=== PATIENT | female | born 1955 | race Caucasian/White ===

== ENCOUNTER 2017-03-08 15:01 | Emergency (ER) | payer MEDICARE, OTHER ==
[2017-03-08] MEDS ORDERED: MORPHINE SULFATE 10 MG/ML SYRINGE IM STA (16:33)
--- NOTE | 2017-03-08 16:37 | ED ---
General Adult HPI - General Chief complaint: Fall Stated complaint: fall 4 days ago facial bruising Time Seen by Provider: 03/08/17 16:26 Source: patient, RN notes reviewed Mode of arrival: ambulatory Limitations: physical limitation - History of Present Illness Initial comments: 62-year-old female with history of memory issues and seizures presenting after fall 4 days ago. Patient states that she believes it was mechanical fall at the time but states that her memory is not very good. She states that she does remember falling. She does not believe that she lost consciousness during this. She did hit the left side of her face on the ground as well as her right hand. She states she initially had swelling in her right hand and right wrist but this is improved. However she is still having pain in this area. She is also having some left rib pain. She denies any abdominal pain. She denies any chest pain or shortness of breath. - Related Data Home Medications Medication Instructions Recorded Confirmed Cranberry Conc/C/Bacill Coag 1 tab PO DAILY PRN 02/27/14 03/08/17 [Cranberry Tablet] DULoxetine HCL [Cymbalta] 60 mg PO HS 02/27/14 03/08/17 Omeprazole 40 mg PO QAM 02/27/14 03/08/17 Rosuvastatin [Crestor] 10 mg PO HS 02/27/14 03/08/17 levETIRAcetam [Keppra] 500 mg PO BID 02/27/14 03/08/17 Losartan Potassium [Cozaar] 50 mg PO QAM 02/04/15 03/08/17 Ergocalciferol [Vitamin D2] 50,000 unit PO Q7D 06/10/15 03/08/17 cloNIDine HCL [Catapres] 0.1 mg PO DAILY 05/19/16 03/08/17 ALPRAZolam [Xanax] 0.25 mg PO Q12HR 06/22/16 03/08/17 Morphine Sulfate ER [Ms Contin] 30 mg PO BID 03/08/17 03/08/17 oxyCODONE-APAP 7.5-325MG [Percocet 1 tab PO TID PRN 03/08/17 03/08/17 7.5-325 mg] Allergies Allergy/AdvReac Type Severity Reaction Status Date / Time nitrofurantoin AdvReac Nausea & Verified 03/08/17 16:43 [From Macrobid] Vomiting,ABDOMINAL PAIN NSAIDS (Non-Steroidal AdvReac Nausea & Verified 03/08/17 16:43 Anti-Inflamma Vomiting Review of Systems ROS Statement: Those systems with pertinent positive or pertinent negative responses have been documented in the HPI. ROS Other: All systems not noted in ROS Statement are negative. Past Medical History Past Medical History: Asthma, Fibromyalgia, Hyperlipidemia, Hypertension, Memory Impairment, Osteoarthritis (OA), Seizure Disorder Additional Past Medical History / Comment(s): BACK PAIN, SHORT TERM MEMORY LOSS, History of Any Multi-Drug Resistant Organisms: None Reported Past Surgical History: Adenoidectomy, Back Surgery, Breast Surgery, Joint Replacement, Orthopedic Surgery, Tonsillectomy Additional Past Surgical History / Comment(s): , LT HAND SURGERY, RT GANGLION CYST REMOVED, LEEP, COLONOSCOPY, EGD, MIGUEL A. CATARACT WITH LENS IMLANTS,RT BREAST BIOPSY, 2 BACK SURGERIES- ONE WAS A LAMINECTOMY, TOTAL LEFT KNEE Past Anesthesia/Blood Transfusion Reactions: No Reported Reaction Past Psychological History: No Psychological Hx Reported Additional Psychological History / Comment(s): SHORT TERM MEMORY LOSS Smoking Status: Light tobacco smoker Past Alcohol Use History: None Reported Additional Past Alcohol Use History / Comment(s): SMOKE PIPES DAILY STARTED SMOKING AT AGE 20 Past Drug Use History: None Reported - Past Family History Brother(s) Family Medical History: Cancer Additional Family Medical History / Comment(s): PANCREATITIS Mother Family Medical History: Hypertension, Memory Impairment Additional Family Medical History / Comment(s): ALZHEIMER'S Father Family Medical History: Coronary Artery Disease (CAD) Additional Family Medical History / Comment(s): HEART PROBLEMS-HAD QUAD- CABG, ALCOHOLISM General Exam - General Exam Comments Initial Comments: General: Awake and Alert. No acute distress. Does not appear acutely ill. Obese. Eyes: DAKOTAH, EOM intact. No nystagmus. No scleral icterus. HENT: Normocephalic. Mucous membranes moist. Trachea midline. There is left periorbital ecchymosis and bruising to the left cheek. No hemotympanum. No mastoid tenderness. No epistaxis or septal hematoma. Neck: The neck is supple, there is no JVD. No posterior neck tenderness. Cardiovascular: Regular rate and rhythm. No murmur, rub, or gallop is appreciated. Distal pulses intact. Respiratory: Lungs are clear to auscultation bilaterally. Diffuse wheezes. No rales, rhonchi. No respiratory distress. Gastrointestinal: Soft, Nontender. No rebound or guarding. Non-distended. No masses or organomegaly noted. No CVA tenderness. Musculoskeletal: Left lateral rib tenderness. Posterior spinal tenderness. No gross deformity. No strength deficits. Neurological: A&Ox3. CN II-XII grossly intact, There are no obvious motor or sensory deficits. Coordination appears grossly intact. Speech is normal. Skin: Skin is warm and dry and no rashes or lesions are noted. Psychiatric: Cooperative, appropriate mood & affect, normal judgment. Limitations: physical limitation Course Vital Signs 03/08/17 03/08/17 03/08/17 15:42 16:46 17:21 Temperature 97.4 F L 97.1 F L Pulse Rate 54 L 76 68 Respiratory 18 16 Rate Blood Pressure 132/72 154/95 O2 Sat by Pulse 96 95 Oximetry 03/08/17 03/08/17 03/08/17 17:32 18:00 18:34 Temperature 97.1 F L 97.2 F L Pulse Rate 70 76 72 Respiratory 16 16 Rate Blood Pressure 154/95 152/90 O2 Sat by Pulse 95 98 Oximetry Medical Decision Making - Medical Decision Making 62-year-old female presenting after fall 4 days ago. Pt has left facial pain with evidence of ecchymosis on exam. EOM intact without pain or entrapment. She also has right wrist and hand pain. She also has left rib pain. Patient does not believe that she lost consciousness at this time. No blood thinner use. Neurologically she appears intact. She does state that she has memory issues and does not recall the fall very well. However she is AO 3 on examination. Pain medication and imaging was ordered. Patient also with noted wheezing on exam, DuoNeb treatment ordered. Patient states she has history of asthma. She does have an inhaler at home. CT head no acute bleed CT orbits no acute fracture Left rib XR no acute fracture Right wrist XR no acute fracture Patient reevaluated, remained stable. States she is feeling improved after pain medications. Updated on imaging results. Discussed no evidence of fractures or acute process and stable for discharge home at this time. Patient is taking MS Contin and oxycodone for chronic pain at home. Discussed she can continue to use her normal pain medications. Discussed fall risk associated with these medications. Discussed icing affected areas as needed. Discussed close follow-up with pain physician and PCP. Patient does ambulate with a walker at baseline and had stable gait in the ED with this. Discussed using his at all times. Patient stable for discharge home. Discussed concerning signs and symptoms for immediate return to the ED. Patient and friend are agreeable with plan discharge home. - Radiology Data Radiology results: report reviewed, image reviewed Disposition Clinical Impression: Facial contusion, Right hand pain, Contusion of rib on left side, Fall Disposition: HOME SELF-CARE Condition: Stable Instructions: Wrist Injury (ED), Rib Contusion (ED), Facial Contusion (ED), Fall Prevention (ED) Additional Instructions: Please continue taking your normal medications for pain. You may ice the affected areas as needed. Please always use your walker. Referrals: Jaylan Garcia MD [Primary Care Provider] - 1-2 days Time of Disposition: 18:14
[2017-03-08 16:47] VITALS: RESP 16
[2017-03-08] MEDS ORDERED: IPRATROPIUM-ALBUTEROL 3 ML NEB INHALATION STA (16:47)
--- NOTE | 2017-03-08 17:23 | CT ---
EXAMINATION TYPE: CT brain wo con DATE OF EXAM: 03/08/2017 5:11 PM COMPARISON: MR brain dated 04/19/[address] brain dated 10/24/2012 HISTORY: Fall 4 days ago, left frontal injury. CT DLP: 1405.00 mGycm. Automated Exposure Control for Dose Reduction was Utilized. TECHNIQUE: CT scan of the head is performed without contrast. FINDINGS: Wedge-shaped areas of hypoattenuation relate to encephalomalacia within the posterior cereb ral distributions bilaterally, right greater than left as seen on the prior MR dated 04/19/2015. Confl uent patchy areas of hypoattenuation are seen within the centrum semiovale, also unchanged from the p rior MR and CT dated 10/24/2012. There is no acute intracranial hemorrhage, mass effect, or midline s hift identified. There is mild ex vacuo dilatation of the posterior horns of the lateral ventricles. Old lacunar injury is also seen in the caudate head on the right.. The globes are intact and the vis ualized sinuses are clear. Left frontoparietal scalp hematoma measuring 6 mm is present. IMPRESSION: 1. No acute intracranial hemorrhage, mass effect, or midline shift is seen. 2. 6 mm left frontoparietal scalp hematoma. 3. Unchanged bilateral encephalomalacia in the distribution of the posterior cerebral arteries, right greater than left as well white matter change likely relating to chronic small vessel ischemia and o ld right caudate lacunar injury.
--- NOTE | 2017-03-08 17:34 | XR ---
EXAMINATION TYPE: XR ribs LT w pa chest xray DATE OF EXAM: 03/08/2017 5:27 PM COMPARISON: 08/15/2014 HISTORY: Left lateral rib pain after fall 4 days ago TECHNIQUE: Single frontal radiograph and 2 views of the left ribs were obtained. FINDINGS: There is no displaced evidence of fracture or dislocation. Thoracic vertebral body heights appear maintained. There is partial visualization of fusion with in the upper lumbar spine. The lungs are clear with no focal consolidation, pleural effusion, or pneumothorax. IMPRESSION: No acute cardiopulmonary process. No displaced fracture.
--- NOTE | 2017-03-08 17:36 | XR ---
EXAMINATION TYPE: XR wrist complete RT DATE OF EXAM: 03/08/2017 5:27 PM COMPARISON: Radiograph of the left wrist dated 10/24/2012. HISTORY: Generalized right wrist pain after fall. TECHNIQUE: 3 views of the right wrist were obtained as well as a scaphoid view. FINDINGS: There is no evidence of fracture or dislocation. There is generalized osteopenia. No soft t issue swelling is appreciated. Carpal rows appear maintained. No radiopaque foreign body. IMPRESSION: No evidence of fracture or dislocation.
--- NOTE | 2017-03-08 17:40 | CT ---
EXAMINATION TYPE: CT orbits wo con DATE OF EXAM: 03/08/2017 5:18 PM COMPARISON: NONE HISTORY: Fall 4 days ago, left frontal injury. CT DLP: 1405.00 mGycm Automated exposure control for dose reduction was used. FINDINGS: There is left frontal zygomatic soft tissue swelling and a small 7 mm subcutaneous density likely rep resenting a small soft tissue hematoma. Soft tissue swelling extends from the superior level of the o rbit over the left temporal region to the zygomatic arch. The orbits are intact and lenses are in tom ce. No evidence of disconjugate gaze, extraocular muscle asymmetry or injury, or lens displacement. T here is no preseptal or postseptal soft tissue swelling. No calvarial fracture is seen. No fracture or dislocation. Nasal septum is deviated towards the left but intact. Right middle nasal turbinate jackson bullosa is incidentally noted. Mild mucosal thickenin g is seen within the ethmoid sinuses. Mastoid air cells and remaining paranasal sinuses are well aera edgardo. Mandibular condyles are located within the mandibular fossa. Nara danilo and lamina Propecia ar e intact. Minimal intracranial vascular calcifications are noted. IMPRESSION: 1. SOFT TISSUE SWELLING AND SMALL PROBABLE 7 MM SUBCUTANEOUS HEMATOMA OVER THE LEFT TEMPORAL REGION E XTENDING TO THE ZYGOMATIC ARCH WITHOUT FRACTURE OR DISLOCATION. 2. MILD ETHMOIDAL MUCOSAL THICKENING.
[2017-03-08 18:35] VITALS: BP 152/90; PULSE 72; TEMP 97.2
== END 2017-03-08 18:34 | disposition home or self-care (01) ==
LOC: EC 15:01
DX: S05.12XA Contusion of eyeball and orbital tissues, left eye, initial encounter (principal); S00.83XA Contusion of other part of head, initial encounter; S20.212A Contusion of left front wall of thorax, initial encounter; M79.641 Pain in right hand; M25.531 Pain in right wrist; J45.909 Unspecified asthma, uncomplicated; E78.5 Hyperlipidemia, unspecified; I10 Essential (primary) hypertension; M19.90 Unspecified osteoarthritis, unspecified site; G40.909 Epilepsy, unspecified, not intractable, without status epilepticus; F17.200 Nicotine dependence, unspecified, uncomplicated; Z79.891 Long term (current) use of opiate analgesic; Z79.899 Other long term (current) drug therapy; Z88.6 Allergy status to analgesic agent; Z88.8 Allergy status to other drugs, medicaments and biological substances; W18.30XA Fall on same level, unspecified, initial encounter
CPT/HCPCS: 94640; 71101; 73110; 70450; 70480; 99284; 96372; J2270

== ENCOUNTER 2017-05-22 00:27 | Inpatient (IN) | payer MEDICARE, OTHER ==
[2017-05-22] MEDS ORDERED: HYDROmorphone 1 MG/ML 1 ML SYRINGE IVP STA ×4 (00:54→04:02)
--- NOTE | 2017-05-22 01:02 | ED ---
Fall HPI <Prince Nunes J - Last Filed: 05/22/17 02:28> - General Source: patient, EMS, RN notes reviewed Mode of arrival: EMS <Charito Guillen - Last Filed: 05/22/17 04:12> - General Chief Complaint: Fall Stated Complaint: Hip Pain/Fall Time Seen by Provider: 05/22/17 00:45 - History of Present Illness Initial Comments: Patient is a 62-year-old female presents to the emergency room for evaluation of fall injury. Patient states that she fell from standing position landing on her right hip/back. Patient states is having 10 out of 10 pain in her lower back and in her hip/upper leg. Patient states she can't move her right leg secondary to pain. Patient denies numbness or tingling going down her leg. Patient denies fecal or urinary incontinence. Patient denies saddle anesthesia. Patient does state she has a history of chronic low back pain. Patient states she's had 2 surgeries over her lumbar spine. Patient states that she takes pain medications at home regularly. Patient denies any other injuries during incident. Patient denies head trauma. Patient denies taking blood thinners. (Charito Guillen) - Related Data Home Medications Medication Instructions Recorded Confirmed Cranberry Conc/C/Bacill Coag 1 tab PO DAILY PRN 02/27/14 05/22/17 [Cranberry Tablet] DULoxetine HCL [Cymbalta] 60 mg PO HS 02/27/14 05/22/17 Omeprazole 40 mg PO QAM 02/27/14 05/22/17 Rosuvastatin [Crestor] 10 mg PO HS 02/27/14 05/22/17 levETIRAcetam [Keppra] 500 mg PO BID 02/27/14 05/22/17 Losartan Potassium [Cozaar] 50 mg PO QAM 02/04/15 05/22/17 Ergocalciferol [Vitamin D2] 50,000 unit PO Q7D 06/10/15 05/22/17 cloNIDine HCL [Catapres] 0.1 mg PO DAILY 05/19/16 05/22/17 ALPRAZolam [Xanax] 0.25 mg PO Q12HR 06/22/16 05/22/17 Morphine Sulfate ER [Ms Contin] 30 mg PO BID 03/08/17 05/22/17 oxyCODONE-APAP 7.5-325MG [Percocet 1 tab PO TID PRN 03/08/17 05/22/17 7.5-325 mg] Allergies Allergy/AdvReac Type Severity Reaction Status Date / Time nitrofurantoin AdvReac Nausea & Verified 05/22/17 02:13 [From Macrobid] Vomiting,ABDOMINAL PAIN NSAIDS (Non-Steroidal AdvReac Nausea & Verified 05/22/17 02:13 Anti-Inflamma Vomiting Review of Systems ROS Other: All systems not noted in ROS Statement are negative. <Prince Nunes - Last Filed: 05/22/17 02:28> ROS Other: All systems not noted in ROS Statement are negative. <Charito Guillen - Last Filed: 05/22/17 04:12> ROS Statement: Those systems with pertinent positive or pertinent negative responses have been documented in the HPI. Past Medical History Past Medical History: Asthma, Fibromyalgia, Hyperlipidemia, Hypertension, Memory Impairment, Osteoarthritis (OA), Seizure Disorder Additional Past Medical History / Comment(s): BACK PAIN, SHORT TERM MEMORY LOSS, History of Any Multi-Drug Resistant Organisms: None Reported Past Surgical History: Adenoidectomy, Back Surgery, Breast Surgery, Joint Replacement, Orthopedic Surgery, Tonsillectomy Additional Past Surgical History / Comment(s): , LT HAND SURGERY, RT GANGLION CYST REMOVED, LEEP, COLONOSCOPY, EGD, MIGUEL A. CATARACT WITH LENS IMLANTS,RT BREAST BIOPSY, 2 BACK SURGERIES- ONE WAS A LAMINECTOMY, TOTAL LEFT KNEE Past Anesthesia/Blood Transfusion Reactions: No Reported Reaction Past Psychological History: No Psychological Hx Reported Smoking Status: Light tobacco smoker Past Alcohol Use History: None Reported Past Drug Use History: None Reported - Past Family History Brother(s) Family Medical History: Cancer Additional Family Medical History / Comment(s): PANCREATITIS Mother Family Medical History: Hypertension, Memory Impairment Additional Family Medical History / Comment(s): ALZHEIMER'S Father Family Medical History: Coronary Artery Disease (CAD) Additional Family Medical History / Comment(s): HEART PROBLEMS-HAD QUAD- CABG, ALCOHOLISM <Charito Guillen - Last Filed: 05/22/17 04:12> General Exam <Prince Nunes - Last Filed: 05/22/17 02:28> Limitations: physical limitation General appearance: alert Head exam: Present: atraumatic, normocephalic, normal inspection Eye exam: Present: normal appearance ENT exam: Present: normal exam Neck exam: Present: normal inspection Respiratory exam: Present: normal lung sounds bilaterally. Absent: respiratory distress Cardiovascular Exam: Present: regular rate, normal rhythm, normal heart sounds Right Hip exam: Present: tenderness, internal rotation, shortening. Absent: full ROM Upper Leg exam: Present: tenderness (proximal femur) Knee exam: Present: normal inspection. Absent: tenderness Lower Leg exam: Present: normal inspection. Absent: tenderness Ankle exam: Present: normal inspection. Absent: tenderness Foot/Toe exam: Present: normal inspection. Absent: tenderness Neurovascular tendon exam: Present: no vascular compromise. Absent: pulse deficit (2+ dorsal pedal and posterior tibial pulses), abnormal cap refill ( capillary refill less than 2 seconds) Back exam: Present: normal inspection, vertebral tenderness (lumbosacral spine) Neurological exam: Present: alert Psychiatric exam: Present: agitated Skin exam: Present: warm, dry, intact, normal color. Absent: rash <Charito Guillen - Last Filed: 05/22/17 04:12> - General Exam Comments Initial Comments: laying in exam room, moaning. (Charito Guillen) Medical Decision Making <Prince Nunes - Last Filed: 05/22/17 02:28> - Lab Data Result diagrams: 05/22/17 02:20 05/22/17 02:20 - Radiology Data Radiology results: report reviewed, image reviewed <Charito Guillen - Last Filed: 05/22/17 04:12> - Medical Decision Making The patient was seen and examined. All diagnostics were reviewed. It appears that she did break her hip. The case is discussed with Dr. Garcia and he is agreeable with admission with Dr. Oliveira to consult. I have discussed the case with the PA and agree with findings as documented. (Prince Nunes) patient is a 62-year-old female presents to the emergency room for evaluation of right leg pain. X-ray significant for right subcapital femoral neck fracture. Patient will be admitted and consult with transfer specialist. ( Charito Guillen) - Lab Data Lab Results 05/22/17 05/22/17 05/22/17 Range/Units 02:20 02:20 02:20 WBC 12.5 H (3.8-10.6) k/uL RBC 3.85 (3.80-5.40) m/uL Hgb 12.2 (11.4-16.0) gm/dL Hct 36.9 (34.0-46.0) % MCV 95.8 (80.0-100.0) fL MCH 31.7 (25.0-35.0) pg MCHC 33.1 (31.0-37.0) g/dL RDW 13.1 (11.5-15.5) % Plt Count 207 (150-450) k/uL Neutrophils % 79 % Lymphocytes % 15 % Monocytes % 4 % Eosinophils % 1 % Basophils % 0 % Neutrophils # 9.9 H (1.3-7.7) k/uL Lymphocytes # 1.9 (1.0-4.8) k/uL Monocytes # 0.5 (0-1.0) k/uL Eosinophils # 0.1 (0-0.7) k/uL Basophils # 0.0 (0-0.2) k/uL PT 10.4 (9.0-12.0) sec INR 1.0 (<1.2) APTT 26.2 (22.0-30.0) sec Sodium 134 L (137-145) mmol/L Potassium 3.6 (3.5-5.1) mmol/L Chloride 100 (98-107) mmol/L Carbon Dioxide 23 (22-30) mmol/L Anion Gap 11 mmol/L BUN 14 (7-17) mg/dL Creatinine 0.70 (0.52-1.04) mg/dL Est GFR (MDRD) Af Amer >60 (>60 ml/min/1.73 sqM) Est GFR (MDRD) Non-Af >60 (>60 ml/min/1.73 sqM) Glucose 115 H (74-99) mg/dL Calcium 8.5 (8.4-10.2) mg/dL Total Bilirubin 0.2 (0.2-1.3) mg/dL AST 22 (14-36) U/L ALT 38 (9-52) U/L Alkaline Phosphatase 74 (38-126) U/L Total Protein 6.0 L (6.3-8.2) g/dL Albumin 3.9 (3.5-5.0) g/dL 05/22/17 02:34 Normal sinus rhythm, ventricular rate 71 bpm, MI interval 138 ms, QRS anabaptism 90 ms, QT/QTc 448/486 seconds (Charito Guillen) Disposition <Prince Nunes - Last Filed: 05/22/17 02:28> Decision Date: 05/22/17 <Charito Guillen - Last Filed: 05/22/17 04:12> Clinical Impression: Fall, Subcapital fracture of neck of femur Disposition: ADMITTED IP TO THIS HOSP Condition: Stable
--- NOTE | 2017-05-22 02:04 | XR ---
EXAM: XR Chest, 1 View CLINICAL HISTORY: Preop hip fracture. TECHNIQUE: Frontal view of the chest. COMPARISON: Chest radiograph dated 03/08/17. FINDINGS: Lungs: No airspace consolidation. Pleural space: No significant pleural effusion. No pneumothorax. Heart: Normal cardiac silhouette allowing for AP technique. Bones/joints: Degenerative changes at the acromioclavicular joints IMPRESSION: No acute findings.
--- NOTE | 2017-05-22 02:23 | XR ---
EXAM: XR Right Femur, 2 Views CLINICAL HISTORY: Right femur pain status post fall. TECHNIQUE: Frontal and crosstable lateral views of the right femur. Total images: 4. COMPARISON: No relevant prior studies available. FINDINGS: Bones/joints: Acute right subcapital femoral neck fracture. Soft tissues: Unremarkable. IMPRESSION: Acute right subcapital femoral neck fracture.
--- NOTE | 2017-05-22 02:25 | XR ---
EXAM: XR Pelvis, 1 or 2 Views CLINICAL HISTORY: Pain status post fall. TECHNIQUE: Frontal view of the pelvis. COMPARISON: No relevant prior studies available. FINDINGS: Bones/joints: Acute right subcapital femoral neck fracture. Lower lumbar spine fixation hardware. Decreased osseous mineralization. Soft tissues: Unremarkable. IMPRESSION: Acute right subcapital femoral neck fracture.
--- NOTE | 2017-05-22 02:28 | XR ---
EXAM: XR Lumbar Spine, 2 or 3 Views CLINICAL HISTORY: Pain status post fall. TECHNIQUE: Frontal and lateral views of the lumbar spine. Total images: 3. COMPARISON: No relevant prior studies available. FINDINGS: Limitations: Suboptimal exam due to decreased osseous mineralization. The crosstable lateral views are limited diagnostic value. Vertebrae: The vertebral bodies are grossly maintained. No significant malalignment. Posterior approach fixation hardware and disc spacer device noted at L5-S1. Soft tissues: Unremarkable. IMPRESSION: No definite acute abnormality allowing for limitations of technique.
[2017-05-22] MEDS ORDERED: ONDANSETRON 4 MG/2 ML VIAL IVP PRN (02:30)
[2017-05-22] MEDS ORDERED: HYDROmorphone 1 MG/ML 1 ML SYRINGE IV PRN (02:30)
[2017-05-22] MEDS ORDERED: NALOXONE 0.4 MG/ML 1 ML VIAL IV PRN ×2 (02:30→14:12)
[2017-05-22 02:45] LABS: Basophils % (A) 0 %; CH 32.1; CHCM 33.6; Eosinophils # (A) 0.1 k/uL (0-0.7); Eosinophils % (A) 1 %; HCT 36.9 % (34.0-46.0); HDW 2.22; HGB 12.2 gm/dL (11.4-16.0); Luc # (Auto) 0.11; Luc % (Auto) 1; Lymphocytes # (A) 1.9 k/uL (1.0-4.8); Lymphocytes % (A) 15 %; MCH 31.7 pg (25.0-35.0); MCHC 33.1 g/dL (31.0-37.0); MCV 95.8 fL (80.0-100.0); Mean Platelet Volume 7.8; Monocytes # (A) 0.5 k/uL (0-1.0); Monocytes % (A) 4 %; Neutrophils # (A) 9.9 k/uL (1.3-7.7); Neutrophils % (A) 79 %; RBC 3.85 m/uL (3.80-5.40); RDW 13.1 % (11.5-15.5); WBC 12.5 k/uL (3.8-10.6); WBC (Perox) 13.33
[2017-05-22 02:58] LABS: Partial Thromboplastin Time 26.2 sec (22.0-30.0); Prothrombin Time 10.4 sec (9.0-12.0)
[2017-05-22 03:02] LABS: ALT 38 U/L (9-52); AST 22 U/L (14-36); Alkaline Phosphatase 74 U/L (38-126); Anion Gap 11 mmol/L; Blood Urea Nitrogen 14 mg/dL (7-17); Calcium 8.5 mg/dL (8.4-10.2); Carbon Dioxide 23 mmol/L (22-30); Chloride 100 mmol/L (98-107); Glucose 115 mg/dL (74-99); Non-African American GFR(MDRD) >60 (>60 ml/min/1.73 sqM); Potassium 3.6 mmol/L (3.5-5.1); Sodium 134 mmol/L (137-145); Total Bilirubin 0.2 mg/dL (0.2-1.3)
[2017-05-22 03:42] VITALS: BMI 23.5
[2017-05-22] MEDS ORDERED: NON-FORMULARY DRUG (Cranberry Conc/C/Bacill Coag [Cranberry Tablet] 1 TAB) PO PRN (04:00)
[2017-05-22] MEDS: SODIUM CHLORIDE 0.9% 1,000 ML IV SCH ×2 (04:36→15:07)
[2017-05-22] MEDS: ALPRAZolam 0.25 MG TAB PO SCH ×2 (04:36→16:43)
[2017-05-22] MEDS: MORPHINE SULFATE ER 30 MG TABLET PO SCH ×3 (05:25→20:05)
[2017-05-22] MEDS: HYDROmorphone 1 MG/ML 1 ML SYRINGE IV PRN ×4 (06:12→19:02)
[2017-05-22] MEDS: oxyCODONE-APAP 7.5-325MG 1 EACH TAB PO PRN ×2 (07:26→20:55)
[2017-05-22] MEDS: PANTOPRAZOLE 40 MG TABLET PO SCH (07:34)
[2017-05-22] MEDS ORDERED: ERGOCALCIFEROL 50,000 UNIT CAP PO SCH (09:00)
[2017-05-22] MEDS ORDERED: LOSARTAN 50 MG TAB PO SCH (09:00)
[2017-05-22] MEDS ORDERED: cloNIDine HCL 0.1 MG TAB PO SCH (09:00)
[2017-05-22 09:39] LABS: Appearance,Urine Clear (Clear); Bacteria,Urine Rare /hpf; Bilirubin,Urine Negative (Negative); Glucose,Urine (UA) Negative (Negative); Ketones,Urine Negative (Negative); Leukocyte Esterase,Urine Small (Negative); Mucus,Urine Rare /hpf; Nitrite,Urine Negative (Negative); PH, Urine 5.5 (5.0-8.0); Particle Count 635; Protein,Urine Negative (Negative); RBC,Urine <1 /hpf (0-5); UA Billing (MACRO vs. MICRO) MICRO; Urobilinogen,Urine <2.0 mg/dL (<2.0); WBC,Urine 7 /hpf (0-5)
--- NOTE | 2017-05-22 09:40 | P.CNOR ---
History of Present Illness - [facility] Consult date: 05/22/17 Consult reason: fracture History of present illness: Patient is a 62-year-old female has a history of chronic pain issues for her lower back and as she states brain and memory issues chronically over the past 20 years. Apparently she has somewhat regular falls a few times a year and fell last night and had acute severe pain around her right side and right hip. She presented to the emergency room being able incision was found to have a right femoral neck fracture. She was admitted and we are counseled in this regard. She denies any loss of consciousness. She denies any fevers or chills. She says she has chronic pain at her back and has been through pain management extensively the past 20 years. She has had prior surgery at her back. She says she has brain issues although she is not sure of any specific diagnosis but she does have problems with her memory. This is chronic for her. She has new acute pain at her right hip and right side down her right leg. The pain is focused around her right hip and she is having significant pain with any sort of motion. She denies any chest pain or shortness breath. Review of Systems She admits to chronic memory issues. She admits to chronic balance issues. She admits to severe chronic low back pain and lower extremity radiculopathy. She has new pain in her right hip particularly with any motion and down her right leg. She denies new pain at her neck or upper extremities. She denies any new pain at her feet ankle and toes. She denies any abdominal pain nausea or vomiting. Past Medical History Past Medical History: Asthma, Fibromyalgia, Hyperlipidemia, Hypertension, Memory Impairment, Musculoskeletal Disorder, Osteoarthritis (OA), Seizure Disorder Additional Past Medical History / Comment(s): BACK PAIN, SHORT TERM MEMORY LOSS , history of lumbar spine surgery 2 at outside institutions. History of multiple treatments and procedures with interventional pain management chronically. She is on chronic high-dose oral pain medications including morphine and Percocet. with pain management. History of Any Multi-Drug Resistant Organisms: None Reported Past Surgical History: Adenoidectomy, Back Surgery, Breast Surgery, Joint Replacement, Orthopedic Surgery, Tonsillectomy Additional Past Surgical History / Comment(s): , LT HAND SURGERY, RT GANGLION CYST REMOVED, LEEP, COLONOSCOPY, EGD, MIGUEL A. CATARACT WITH LENS IMLANTS,RT BREAST BIOPSY, 2 BACK SURGERIES- ONE WAS A LAMINECTOMY, TOTAL LEFT KNEE Past Anesthesia/Blood Transfusion Reactions: No Reported Reaction Past Psychological History: No Psychological Hx Reported Smoking Status: Light tobacco smoker Past Alcohol Use History: None Reported Past Drug Use History: None Reported - Past Family History Brother(s) Family Medical History: Cancer Additional Family Medical History / Comment(s): PANCREATITIS Mother Family Medical History: Hypertension, Memory Impairment Additional Family Medical History / Comment(s): ALZHEIMER'S Father Family Medical History: Coronary Artery Disease (CAD) Additional Family Medical History / Comment(s): HEART PROBLEMS-HAD QUAD- CABG, ALCOHOLISM Medications and Allergies Home Medications Medication Instructions Recorded Confirmed Type Cranberry Conc/C/Bacill Coag 1 tab PO DAILY PRN 02/27/14 05/22/17 History [Cranberry Tablet] DULoxetine HCL [Cymbalta] 60 mg PO HS 02/27/14 05/22/17 History Omeprazole 40 mg PO QAM 02/27/14 05/22/17 History Rosuvastatin [Crestor] 10 mg PO HS 02/27/14 05/22/17 History levETIRAcetam [Keppra] 500 mg PO BID 02/27/14 05/22/17 History Losartan Potassium [Cozaar] 50 mg PO QAM 02/04/15 05/22/17 History Ergocalciferol [Vitamin D2] 50,000 unit PO Q7D 06/10/15 05/22/17 History cloNIDine HCL [Catapres] 0.1 mg PO DAILY 05/19/16 05/22/17 History ALPRAZolam [Xanax] 0.25 mg PO Q12HR 06/22/16 05/22/17 History Morphine Sulfate ER [Ms Contin] 30 mg PO BID 03/08/17 05/22/17 History oxyCODONE-APAP 7.5-325MG [Percocet 1 tab PO TID PRN 03/08/17 05/22/17 History 7.5-325 mg] Allergies Allergy/AdvReac Type Severity Reaction Status Date / Time nitrofurantoin AdvReac Nausea & Verified 05/22/17 02:13 [From Macrobid] Vomiting,ABDOMINAL PAIN NSAIDS (Non-Steroidal AdvReac Nausea & Verified 05/22/17 02:13 Anti-Inflamma Vomiting Physical Examination Osteopathic Statement: *. No significant issues noted on an osteopathic structural exam other than those noted in the History and Physical/Consult. - Hip right Gait: other (She has shortened and actually rotated her right hip. She has severe excruciating pain with any motion or her right hip. She is able to dorsiflex plantarflex and extend at her ankle foot and toes. Her upper extremity have good active and passive range of motion. Her neck is no tenderness to palpation range of motion. Her back incision site appears to be clear. Her abdomen soft nontender.) - Fracture right hip Location of fracture: At the right hip the patient has external rotation and shortening. S Distal extremity neurovascularly intact: Yes (The patient is neurovascularly intact. She has no open wounds lacerations ) Results - Labs Labs: Abnormal Lab Results - Last 24 Hours (Table) 05/22/17 05/22/17 Range/Units 02:20 02:20 WBC 12.5 H (3.8-10.6) k/uL Neutrophils # 9.9 H (1.3-7.7) k/uL Sodium 134 L (137-145) mmol/L Glucose 115 H (74-99) mg/dL Total Protein 6.0 L (6.3-8.2) g/dL H & H 05/22/17 Range/Units 02:20 Hgb 12.2 (11.4-16.0) gm/dL Hct 36.9 (34.0-46.0) % Coagulation 05/22/17 Range/Units 02:20 INR 1.0 (<1.2) Result Diagrams: 05/22/17 02:20 05/22/17 02:20 - Diagnostic results Hip x-ray: report reviewed, image reviewed (At her right hip there is evidence of a subcapital femoral neck fracture there may be is some distal extension toward the inferior aspect of her femoral neck. There is displacement and angulation. She does have prior surgical hardware at her lumbar spine which appears to be stable. They do not see any evidence of other fractures.) Assessment and Plan Plan: Right femoral neck fracture, acute traumatic to fall, closed neurovascularly intact Chronic pain Memory issues History of multiple falls Chronic low back pain with history of prior surgery at outside institution The patient's acute primary issue is her new right femoral neck fracture. She is completely unable to mobilize with a fracture and I think the best treatment for her is surgical intervention with a hemiarthroplasty. I discussed this with her at length at bedside. I discussed that this is a severe injury which was a significantly impair her ability to mobilize and ambulate but surgery gives her the best opportunity to start her mobilization. I discussed the risks of her injury including but limited to the risk of loss of function loss of able trace status decreased motion decreased function chronic pain inability to ambulate, and I discussed the possible interventions ranging from conservative to surgical. We discussed the possibilities and the risks of surgery the risks including but not limited to risk of bleeding risk of infection was need further surgery risk of decreased loss of motion loss function malunion nonunion hardware failure nerve damage as well as the fact that surgery may not alleviate her symptoms and she may have permanent changes in her overall function was explained. Answered her questions best my ability G understand and she elected to proceed with surgical intervention. She has been nothing by mouth after midnight and have reviewed her labs. The medical services going to see her this morning and if she is cleared we'll potentially be able to have her undergo surgical intervention with hemiarthroplasty today. We will continue nothing by mouth to for now. The patient does have chronic issues with pain. Certainly this will be difficult in her perioperative treatment but we will work with medicine and extension with pain management to control her pain as best possible. Time with Patient: Greater than 30
[2017-05-22] MEDS: levETIRAcetam 500 MG TAB PO SCH ×2 (10:19→20:05)
--- NOTE | 2017-05-22 11:25 | P.HPIM ---
History of Present Illness H&P Date: 05/22/17 Chief Complaint: Fall with right hip fracture Patient is a 62-year-old female well known to my practice who had a slip and fall at home she was unable to stand up, she was brought in to [facility] emergency room, x-ray revealed evidence of acute right sub-L femoral neck fracture, lumbar spine x-ray did not reveal any evidence of acute abnormality, patient has known history of chronic back pain she had history of previous 2 back surgeries in the past. She was admitted to medical floor consultation for orthopedic associates were initiated for management of right hip fracture. EKG was done on presentation and revealed normal sinus rhythm with QT prolongation otherwise no abnormality seen. Chest x-ray was done on presentation and did not reveal any evidence of acute abnormality. Patient does not have any previous history of coronary artery disease, angina, myocardial infarction, and no previous history of congestive heart failure. Past Medical History Past Medical History: Asthma, Fibromyalgia, Hyperlipidemia, Hypertension, Memory Impairment, Musculoskeletal Disorder, Osteoarthritis (OA), Seizure Disorder Additional Past Medical History / Comment(s): BACK PAIN, SHORT TERM MEMORY LOSS , history of lumbar spine surgery 2 at outside institutions. History of multiple treatments and procedures with interventional pain management chronically. She is on chronic high-dose oral pain medications including morphine and Percocet. with pain management. History of Any Multi-Drug Resistant Organisms: None Reported Past Surgical History: Adenoidectomy, Back Surgery, Breast Surgery, Joint Replacement, Orthopedic Surgery, Tonsillectomy Additional Past Surgical History / Comment(s): , LT HAND SURGERY, RT GANGLION CYST REMOVED, LEEP, COLONOSCOPY, EGD, MIGUEL A. CATARACT WITH LENS IMLANTS,RT BREAST BIOPSY, 2 BACK SURGERIES- ONE WAS A LAMINECTOMY, TOTAL LEFT KNEE Past Anesthesia/Blood Transfusion Reactions: No Reported Reaction Past Psychological History: No Psychological Hx Reported Smoking Status: Light tobacco smoker Past Alcohol Use History: None Reported Past Drug Use History: None Reported - Past Family History Brother(s) Family Medical History: Cancer Additional Family Medical History / Comment(s): PANCREATITIS Mother Family Medical History: Hypertension, Memory Impairment Additional Family Medical History / Comment(s): ALZHEIMER'S Father Family Medical History: Coronary Artery Disease (CAD) Additional Family Medical History / Comment(s): HEART PROBLEMS-HAD QUAD- CABG, ALCOHOLISM Medications and Allergies Home Medications Medication Instructions Recorded Confirmed Type Cranberry Conc/C/Bacill Coag 1 tab PO DAILY PRN 02/27/14 05/22/17 History [Cranberry Tablet] DULoxetine HCL [Cymbalta] 60 mg PO HS 02/27/14 05/22/17 History Omeprazole 40 mg PO QAM 02/27/14 05/22/17 History Rosuvastatin [Crestor] 10 mg PO HS 02/27/14 05/22/17 History levETIRAcetam [Keppra] 500 mg PO BID 02/27/14 05/22/17 History Losartan Potassium [Cozaar] 50 mg PO QAM 02/04/15 05/22/17 History Ergocalciferol [Vitamin D2] 50,000 unit PO Q7D 06/10/15 05/22/17 History cloNIDine HCL [Catapres] 0.1 mg PO DAILY 05/19/16 05/22/17 History ALPRAZolam [Xanax] 0.25 mg PO Q12HR 06/22/16 05/22/17 History Morphine Sulfate ER [Ms Contin] 30 mg PO BID 03/08/17 05/22/17 History oxyCODONE-APAP 7.5-325MG [Percocet 1 tab PO TID PRN 03/08/17 05/22/17 History 7.5-325 mg] Allergies Allergy/AdvReac Type Severity Reaction Status Date / Time nitrofurantoin AdvReac Nausea & Verified 05/22/17 02:13 [From Macrobid] Vomiting,ABDOMINAL PAIN NSAIDS (Non-Steroidal AdvReac Nausea & Verified 05/22/17 02:13 Anti-Inflamma Vomiting Physical Exam Vitals: Vital Signs Temp Pulse Pulse Resp BP BP Pulse Ox 05/22/17 07:00 98.5 F 88 18 165/82 97 05/22/17 03:57 98.1 F 82 18 155/76 92 L 05/22/17 03:11 74 18 150/74 100 05/22/17 02:07 66 16 146/87 05/22/17 00:30 98.1 F 72 20 141/66 96 Intake and Output 05/21/17 05/22/17 05/22/17 22:59 06:59 14:59 Intake Total 200 Output Total 400 Balance -200 Intake: Intake, IV Titration 200 Amount Sodium Chloride 0.9% 1, 200 000 ml @ 50 mls/hr IV . Q20H [facility] Rx#:[id number] Output: Urine 400 Other: Voiding Method Indwelling Catheter Weight 68.039 kg In general patient is alert and oriented 3 in no apparent distress HEENT head normocephalic and atraumatic Neck is supple no JVD no goiter no lymphadenopathy Chest exam reveals a few scattered crackles bilaterally no wheezing Cardiac exam reveals regular heart sounds no gallops no murmurs Abdomen is soft nontender no organomegaly with normal bowel sounds Extremity exam reveals no edema no cyanosis or clubbing Results CBC & Chem 7: 05/22/17 02:20 05/22/17 02:20 Labs: Abnormal Lab Results - Last 24 Hours (Table) 05/22/17 05/22/17 05/22/17 Range/Units 02:20 02:20 09:30 WBC 12.5 H (3.8-10.6) k/uL Neutrophils # 9.9 H (1.3-7.7) k/uL Sodium 134 L (137-145) mmol/L Glucose 115 H (74-99) mg/dL Total Protein 6.0 L (6.3-8.2) g/dL Ur Leukocyte Esterase Small H (Negative) Urine WBC 7 H (0-5) /hpf Urine Bacteria Rare H (None) /hpf Urine Mucus Rare H (None) /hpf Thrombosis Risk Factor Assmnt - Choose All That Apply Each Factor Represents 1 point: Age 41-60 years Other Risk Factors: No Thrombosis Risk Factor Assessment Total Risk Factor Score: 1 Thrombosis Risk Factor Assessment Level: Low Risk Assessment and Plan Plan: #1 fall with acute right subcapital femoral neck fracture, patient is scheduled for surgery on 05/22/2017 There is no previous history of coronary artery disease or congestive heart failure There is no evidence of any ongoing infectious process There is no medical contraindication for surgery. #2 EKG revealing QT prolongation, medication that can cause prolongation of QT should be avoided. #3 underlying history of degenerative disc disease with stool back surgeries in the past and chronic pain issues currently managed by Dr. Ghosh as outpatient #4 previous history of brain disorder, not clearly identified, patient has memory loss history of seizures she was evaluated by Dr. Munoz in the past and was diagnosed with JESSICA. #4 chronic pain disorder #5 history of hypertension At this time may proceed with surgery, will follow closely for medical management
[2017-05-22] MEDS ORDERED: KETAMINE 10 MG/ML 20 ML VIAL ONE (12:14)
[2017-05-22] MEDS ORDERED: fentaNYL (PF) 50 MCG/ML 2 ML AMP ONE (12:14)
[2017-05-22] MEDS ORDERED: PHENYLEPHRINE-0.9% NACL SYG 1 MG/10 ML SYRINGE ONE (12:14)
[2017-05-22] MEDS ORDERED: MIDAZOLAM 2 MG/2 ML VIAL ONE (12:14)
[2017-05-22] MEDS ORDERED: PROPOFOL 10 MG/ML 20 ML VIAL IV ONE (12:14)
[2017-05-22] MEDS ORDERED: SUCCINYLCHOLINE CHLORIDE 100 MG/5 ML SYR IV ONE (12:14)
[2017-05-22] MEDS ORDERED: LIDOCAINE 1% INJ 10MG/ML (20 ML MDV) ONE (12:14)
[2017-05-22] MEDS ORDERED: HYDROmorphone (PF) 1 MG/ML ONE (12:14)
[2017-05-22] MEDS ORDERED: SODIUM CHLORIDE 0.9% 50 ML with ceFAZolin 2,000 MG IV ONE ×2 (12:40)
[2017-05-22] MEDS ORDERED: IV FLUID CONTINUATION 800 ML IV ONE (12:40)
[2017-05-22] MEDS ORDERED: BENZOCAINE/MENTHOL LOZENG 1 EACH LOZENGE MUCOUS MEM PRN (14:12)
[2017-05-22] MEDS ORDERED: MAGNESIUM HYDROXIDE 2,400 MG/10 ML CUP PO PRN (14:12)
[2017-05-22] MEDS ORDERED: HYDROmorphone 1 MG/ML 1 ML SYRINGE IVP PRN (14:12)
--- NOTE | 2017-05-22 14:21 | P.OP ---
Date of Procedure: 05/22/17 Preoperative Diagnosis: Right hip femoral neck fracture, acute status post fall Postoperative Diagnosis: Same, angulated and displaced Procedure(s) Performed: Implants: Anesthesia: GETA Pathology: other (Femoral head to pathology) Condition: stable Disposition: PACU Indications for Procedure: Operative Findings: Description of Procedure: Preoperative diagnosis: Femoral neck fracture, right, acute angles and displaced status post fall Postoperative diagnosis: Same Procedure: Right Hip hemiarthroplasty Surgeon: Dr. Tommy Zarate.: Nic Hamilton who is present that the entire the case persistence during positioning dissection exposure placement of hardware and closure Anesthesia: Gen. per Dr. Garcia Estimated blood loss: Approximately 200 mL Components implanted: Biomet hemiarthroplasty fracture stem size 2 with a standard neck and 42 head Disposition: To recovery room in good stable condition Operative indications The patient sustained a injury and suffered a femoral neck fracture which was displaced and angulated. She is known to have long-standing history of chronic back pain and has some memory issues and frequent falls. She had sustained a fall yesterday at home and had incapacitating pain and presented to the emergency room via ambulance and was found to have a right hip femoral neck displaced acute fracture. We were involved in the case in regard to his hip fracture. We discussed the nature of her injury and the severe issues involved with her injury including long-term issues such has decreased ability to function decreased ability to ambulate loss of immature status and function as well as different issues involved with treatment ranging from conservative to surgical intervention. After evaluation it was determined that they would be a candidate for hip hemiarthroplasty via surgical intervention. This would give them the best chance of mobilization and ambulation. We discussed the range of treatment options from conservative to surgical. We discussed the risk of bleeding risk of infection risk and need for further surgery risk of decreased loss of motion loss of function malunion nonunion hardware failure nerve damage dislocation as well as the fact that surgery may not alleviate her symptoms and that she may have alteration in her overall function and ambulatory status. We discussed the relation of her injury and her treatment regards to her chronic pain issues already going on as well. They elected proceed with surgical intervention. We answered their questions to the best of our ability healing which they can understand. They signed an informed consent. Operative summary After obtaining informed consent evaluation by anesthesia, preoperative evaluation and clearance for medical service, the patient was identified and prepped Ding area and the surgical site was marked on the right hip. There brought to the operating room where the given appropriate anesthesia by the anesthesia department in standard fashion without any complications. Once the anesthesia was established we were able to position the patient. There placed in a lateral decubitus position with the operative side up being careful to pad any bony prominences and pressure points and place a excellent roll appropriately. The airway and C-spine was monitored continuously. Once patient was well positioned lower extremity was prepped and draped in normal standard sterile fashion on the right hip. An appropriate keystone protocol and timeout was completed and were able to proceed with surgery. A curvilinear incision was established over the greater trochanter. Dissection was taken down to the tensor fascia martin which was split in line with its fibers and extended proximally into the gluteal fibers. A Charnley retractor was established. The trochanteric bursa was inflamed and removed. I was able to then dissect down off the posterior aspect of the greater trochanter taking the piriformis tendon and the posterior capsule in one full-thickness flap and tacking it with suture. This expose the fracture at the femoral neck which was easily identified. There was obvious displacement and comminution at the for femoral neck. A guide was used to establish the appropriate femoral neck cut and a bone- cutting saw was used to establish the femoral neck cut and good alignment and good position. All the bony fragments were removed. I was then able to use a corkscrew device to remove the femoral head from the acetabulum. Any loose fragments in the acetabulum were removed. The femoral head was measured for the appropriate size implant and then passed off for pathology. Appropriate retractors were placed and I established a lateral box cut chisel. I then used a starting reamer to establish the femoral canal area I then sequentially reamed with sequential reamers until we had good bony chatter distally. With this we then started to broach with sequential broaches to the appropriate sized to we had good fit and fill. There is no evidence any fracture in the rest of the femur. With the appropriate size broach well seated and stable I placed the trial neck and head. A gentle reduction was performed to get good reduction. The hip was taken through a good range of motion and found to be stable in the position of sleep and through a range of motion. It had a good shuck test. We were able to then dislocate the trial prosthesis. The broach was found to remain stable. It was then removed. The wound was copiously irrigated and suctioned dry with pulsatile lavage. The appropriate size femoral stem was chosen and positioned and placed in good alignment and good position with excellent fit and fill seated appropriately over the calcar. It was checked and found to be stable. The trunnion was cleaned and dried the femoral head was then positioned over the femoral neck malleted in position checked and found to be stable. The hip prosthesis was then gently reduced back into the acetabulum and found to have excellent position and excellent stability and excellent range of motion with stability. There is no evidence of dislocation or fracture. The wound was copiously irrigated and suctioned dry. We are able to proceed with closure. The piriformis and posterior capsule were reapproximated to the posterior aspect of the greater trochanter with transosseous stitches. The wound was irrigated and suctioned dry. The fascia was closed with #2 Quill for watertight closure. Subcutaneous tissue was irrigated and suctioned dry. Subcu tissues closed with 2-0 Vicryl subcuticular tissue was closed with 30 Quill. Wound is clean and dried and dressed with Dermabond Adaptic 4 x 4's ABDs and tape. Drapes were broken down, the hip was held in stable position, and an abduction pillow was placed. The patient was then transferred back to their hospital bed being careful to maintain the hip and C-spine alignment and airway. Once stable to patient was transferred back to the postanesthesia care unit to be readmitted for pain control and DVT prophylaxis medical management and monitoring and mobilization we will continue follow patient closely throughout their postoperative course.
--- NOTE | 2017-05-22 14:48 | XR ---
Limited right hip HISTORY: Postop Single view of the right hip correlated to previous exam 05/22/2017 History: status post right hip arthroplasty. Lucency present in the soft tissues compatible with postop state. There is anatomic alignment. IMPRESSION: Orthopedic follow-up
[2017-05-22] MEDS: DIAZEPAM 5 MG TAB PO PRN (16:43)
[2017-05-22 17:22] LABS: Basophils % (A) 0 %; CH 31.9; CHCM 33.7; Eosinophils % (A) 0 %; HCT 38.6 % (34.0-46.0); HDW 2.24; HGB 12.8 gm/dL (11.4-16.0); Luc # (Auto) 0.02; Luc % (Auto) 0; Lymphocytes # (A) 0.5 k/uL (1.0-4.8); Lymphocytes % (A) 5 %; MCH 31.6 pg (25.0-35.0); MCHC 33.3 g/dL (31.0-37.0); Mean Platelet Volume 7.4; Monocytes # (A) 0.3 k/uL (0-1.0); Monocytes % (A) 3 %; Neutrophils # (A) 9.5 k/uL (1.3-7.7); Neutrophils % (A) 92 %; RBC 4.06 m/uL (3.80-5.40); RDW 13.4 % (11.5-15.5); WBC 10.3 k/uL (3.8-10.6); WBC (Perox) 10.76
[2017-05-22] MEDS: DULoxetine HCL 60 MG CAPSULE.DR PO SCH (20:05)
[2017-05-22] MEDS: ATORVASTATIN 20 MG TAB PO SCH (20:05)
[2017-05-22] MEDS: ceFAZolin 2 GM in SODIUM CHLORIDE 0.9% 100 ML IVPB SCH (20:54)
[2017-05-22 21:32] LABS: Glucose,Whole Blood 144 mg/dL (75-99)
[2017-05-22] MEDS: LOSARTAN 50 MG TAB PO SCH (23:37)
[2017-05-22] MEDS: cloNIDine HCL 0.1 MG TAB PO SCH (23:38)
[2017-05-23] MEDS ORDERED: KETOROLAC 30 MG/ML 1 ML VIAL IVP STA (02:17)
[2017-05-23] MEDS: ceFAZolin 2 GM in SODIUM CHLORIDE 0.9% 100 ML IVPB SCH (05:30)
[2017-05-23] MEDS: SODIUM CHLORIDE 0.9% 1,000 ML IV SCH ×4 (05:54→18:11)
[2017-05-23] MEDS: ALPRAZolam 0.25 MG TAB PO SCH ×2 (08:03→18:23)
[2017-05-23] MEDS: levETIRAcetam 500 MG TAB PO SCH ×2 (08:04→20:53)
[2017-05-23] MEDS: LOSARTAN 50 MG TAB PO SCH (08:04)
[2017-05-23] MEDS: SENNOSIDES-DOCUSATE SODIUM 1 EACH TAB PO SCH (08:04)
[2017-05-23] MEDS: MORPHINE SULFATE ER 30 MG TABLET PO SCH ×2 (08:04→20:55)
[2017-05-23] MEDS: cloNIDine HCL 0.1 MG TAB PO SCH (08:05)
[2017-05-23] MEDS: PANTOPRAZOLE 40 MG TABLET PO SCH (08:05)
[2017-05-23] MEDS ORDERED: ENALAPRILAT 1.25 MG/ML 1 ML VIAL IVP PRN (11:59)
[2017-05-23] MEDS ORDERED: LOSARTAN 50 MG TAB PO ONE (12:15)
--- NOTE | 2017-05-23 12:17 | P.PN ---
Subjective Principal diagnosis: Fall with right hip fracture Patient is a 62-year-old female well known to my practice who had a slip and fall at home she was unable to stand up, she was brought in to [facility] emergency room, x-ray revealed evidence of acute right sub-L femoral neck fracture, lumbar spine x-ray did not reveal any evidence of acute abnormality, patient has known history of chronic back pain she had history of previous 2 back surgeries in the past. She was admitted to medical floor consultation for orthopedic associates were initiated for management of right hip fracture. EKG was done on presentation and revealed normal sinus rhythm with QT prolongation otherwise no abnormality seen. Chest x-ray was done on presentation and did not reveal any evidence of acute abnormality. On 05/23/2017 patient is alert and oriented seems a bit anxious complaining of pain even though patient is maintained on multiple pain medications including morphine sulfate 30 mg twice daily, Dilaudid 1.5 mg every 3 hours IV when necessary, and Percocet when necessary. Blood pressure was elevated at 192/90, at this point dose of losartan was increased from 50-100 mg daily and Vasotec IV was added to her regimen Otherwise patient is denying any complaints there is no fever or chills no headaches no dizziness no chest pain no shortness of breath no nausea or vomiting no abdominal pain no diarrhea or constipation, Ding catheter is in. Objective - Vital Signs Vital signs: Vital Signs Temp 98.5 F 05/23/17 08:12 Pulse 60 05/23/17 11:44 Resp 18 05/23/17 08:12 BP 192/84 05/23/17 11:44 Pulse Ox 98 05/23/17 08:23 Intake & Output 05/22/17 05/23/17 05/23/17 18:59 06:59 18:59 Intake Total 950 725 Output Total 2150 Balance -1200 725 Intake: IV 950 Intake, IV Titration 725 Amount Sodium Chloride 0.9% 1, 525 000 ml @ 75 mls/hr IV . [id number] [facility] Rx#:[id number] ceFAZolin 2 gm In Sodium 200 Chloride 0.9% 100 ml @ 100 mls/hr IVPB Q8H [facility] Rx#:[id number] Output: Urine 1950 Uretheral (Ding) 1500 Estimated Blood Loss 200 Other: Voiding Method Indwelling Catheter Indwelling Catheter Indwelling Catheter - Exam In general patient is alert and oriented 3 in no apparent distress HEENT head normocephalic and atraumatic Neck is supple no JVD no goiter no lymphadenopathy Chest exam reveals a few scattered crackles bilaterally no wheezing Cardiac exam reveals regular heart sounds no gallops no murmurs Abdomen is soft nontender no organomegaly with normal bowel sounds Extremity exam reveals no edema no cyanosis or clubbing - Labs CBC & Chem 7: 05/22/17 17:05 05/22/17 02:20 Labs: Abnormal Lab Results - Last 24 Hours (Table) 05/22/17 05/22/17 Range/Units 17:05 21:28 Neutrophils # 9.5 H (1.3-7.7) k/uL Lymphocytes # 0.5 L (1.0-4.8) k/uL POC Glucose (mg/dL) 144 H (75-99) mg/dL Assessment and Plan Plan: #1 fall with acute right subcapital femoral neck fracture, patient is scheduled for surgery on 05/22/2017 Patient is stable postoperatively, complaining of pain, blood pressure is elevated, otherwise stable #2 EKG revealing QT prolongation, medication that can cause prolongation of QT should be avoided. #3 underlying history of degenerative disc disease with stool back surgeries in the past and chronic pain issues currently managed by Dr. Ghosh as outpatient #4 previous history of brain disorder, not clearly identified, patient has memory loss history of seizures she was evaluated by Dr. Munoz in the past and was diagnosed with JESSICA. #4 chronic pain disorder #5 history of hypertension #6 for DVT Prophylaxis Please follow orthopedic protocol #7 hypertension not well controlled increase losartan to 100 mg daily and add Vasotec 1.25 mg IV every 4 hours when necessary Continue current management otherwise will follow in a.m.
[2017-05-23] MEDS: oxyCODONE-APAP 7.5-325MG 1 EACH TAB PO PRN ×2 (12:31→20:55)
--- NOTE | 2017-05-23 13:10 | P.PN ---
Progress Note - Text Patient is a pleasant 62-year-old female who is seen and examined at the bedside today for follow-up evaluation after undergoing a right hip hemiarthroplasty performed yesterday following right femoral neck fracture sustained after a fall. Postsurgically, patient has had significant difficulty with pain control, elevated blood pressure, and increased heart rate. Multiple calls were placed last night for difficulty with pain control. Dr. Garcia in medicine was also contacted for further treatment of her blood pressure. Since last night, patient has had some improvement in her overall symptoms. Her heart rate was in the mid 40s last night and has elevated to 59 today. She states she continues to have significant pain in the right hip but does feel better than she did prior to surgical intervention. She was able to work with physical therapy today to get out of bed. She was able to perform toe-touch weightbearing with physical therapy. She had some difficulty keeping her abductor pillow and intact last night. It has been reapplied in the appropriate position. Patient states the pillow is more comfortable today. She is inquiring again about pain control. We discussed I feel it appropriate to continue with scheduled medications by Dr. Garcia as needed for pain control as long as her vital signs continued to be stable. Do not have any plans to increase her narcotic medications. Patient is currently able to receive MS Contin 30 mg twice daily, Dilaudid 1.5 mg every 3 hours IV, and Percocet 7.5 mg 3 times a day when necessary as needed for pain. This was discussed in detail with the patient's nurse is well. Overall, patient does feel somewhat better as compared to yesterday. Patient will need rehab at discharge. Patient states a rifle case repairer has already discussed rehab placement with her yesterday. If she is able to get approval, she may plan for rehabilitation at [facility] as she worked through physical therapy there previously. Patient will be seen and examined by Dr. Garcia today as well. Per nursing, he may plan to adjust her blood pressure medications as her blood pressures have continued to be elevated. Patient states again at the bedside today she is known to have a brain disorder was has not been clearly diagnosed and this sometimes gives her problems when trying to vocalize what she is feeling and can cause her some difficulty when trying to clearly understand the situation. Physical Exam Right Hip Hemiarthroplasty: Status post surgical day number 1 Patient is examined in bed with abductor pillow intact Patient is awake, alert, and oriented 3 Vital signs stable Good chest excursion with deep inspiration and expiration Abdomen soft nontender No signs or symptoms of DVT; no calf pain Abductor pillow intact Dressing of the right hip is clean, dry, and intact; no erythema, purulence, or signs of infection Full range of motion of ankles bilaterally Dorsiflexion, plantarflexion, and extensor hallucis longus positive sustained bilaterally Neurovascularly intact bilateral lower extremities Capillary refill less than 2 seconds bilateral lower extremities Assessment: Status post right hip hemiarthroplasty for right femoral neck fracture That is post fall Hip pain High risk narcotic pain management Hypertension Plan: 1. Patient may continue toe-touch weightbearing on the right lower extremity as tolerated on the lower extremity; patient may work with physical therapy to increase mobility and ambulation 2. Continue pain control; patient may continue with narcotic pain medication as prescribed as needed by Dr. Garcia including MS Contin 30 mg twice a day, Percocet 7.5 mg/325 mg 3 times a day, and Dilaudid 1.5 mg IV push every 3 hours 3. Abductor pillow to remain in place at all times except while working with therapy 4. Medicine to continue following the patient for their other medical issues putting hypertension 5. We will order and continue anticoagulation therapy with Lovenox 40mg subcu daily 6. We'll continue to follow the patient 7. Patient will most likely remain in the hospital over the next couple days with plans to discharge to rehab facility once cleared by medicine; case management currently trying for approval for patient to be discharged to [facility] rehabilitation 8. Patient can follow-up with Nic Oliveira PA-C or Dr. Kev Sanders at [facility] in 2-3 weeks following discharge
[2017-05-23] MEDS: HYDROmorphone 1 MG/ML 1 ML SYRINGE IVP PRN ×3 (13:21→23:18)
[2017-05-23] MEDS: ENOXAPARIN 40 MG/0.4 ML SYRINGE SQ SCH (14:15)
[2017-05-23] MEDS: CARISOPRODOL 350 MG TAB PO PRN (16:34)
[2017-05-23] MEDS: ATORVASTATIN 20 MG TAB PO SCH (20:54)
[2017-05-23] MEDS: DULoxetine HCL 60 MG CAPSULE.DR PO SCH (20:55)
[2017-05-24] MEDS: DIAZEPAM 5 MG TAB PO PRN (01:46)
[2017-05-24] MEDS: HYDROmorphone 1 MG/ML 1 ML SYRINGE IVP PRN ×5 (03:22→23:25)
[2017-05-24] MEDS: ALPRAZolam 0.25 MG TAB PO SCH ×2 (04:41→17:03)
[2017-05-24] MEDS: oxyCODONE-APAP 7.5-325MG 1 EACH TAB PO PRN ×3 (04:41→21:56)
[2017-05-24 07:28] LABS: Basophils % (A) 0 %; CH 31.6; CHCM 33.7; Eosinophils # (A) 0.1 k/uL (0-0.7); Eosinophils % (A) 1 %; HCT 33.4 % (34.0-46.0); HDW 2.28; HGB 11.1 gm/dL (11.4-16.0); Luc # (Auto) 0.18; Luc % (Auto) 2; Lymphocytes # (A) 1.7 k/uL (1.0-4.8); Lymphocytes % (A) 17 %; MCH 31.4 pg (25.0-35.0); MCHC 33.3 g/dL (31.0-37.0); MCV 94.2 fL (80.0-100.0); Mean Platelet Volume 7.3; Monocytes # (A) 0.8 k/uL (0-1.0); Monocytes % (A) 7 %; Neutrophils # (A) 7.7 k/uL (1.3-7.7); Neutrophils % (A) 73 %; RBC 3.54 m/uL (3.80-5.40); RDW 12.5 % (11.5-15.5); WBC 10.4 k/uL (3.8-10.6); WBC (Perox) 10.39
[2017-05-24 07:36] LABS: ALT 35 U/L (9-52); AST 22 U/L (14-36); Alkaline Phosphatase 49 U/L (38-126); Anion Gap 7 mmol/L; Blood Urea Nitrogen 8 mg/dL (7-17); Calcium 8.1 mg/dL (8.4-10.2); Carbon Dioxide 26 mmol/L (22-30); Chloride 104 mmol/L (98-107); Glucose 101 mg/dL (74-99); Non-African American GFR(MDRD) >60 (>60 ml/min/1.73 sqM); Potassium 3.3 mmol/L (3.5-5.1); Sodium 137 mmol/L (137-145); Total Bilirubin 0.5 mg/dL (0.2-1.3); Total Protein 5.1 g/dL (6.3-8.2)
[2017-05-24] MEDS: MORPHINE SULFATE ER 30 MG TABLET PO SCH ×2 (07:36→20:46)
[2017-05-24] MEDS: SENNOSIDES-DOCUSATE SODIUM 1 EACH TAB PO SCH (07:36)
[2017-05-24] MEDS: ENOXAPARIN 40 MG/0.4 ML SYRINGE SQ SCH (07:38)
[2017-05-24] MEDS: LOSARTAN 50 MG TAB PO SCH (07:38)
[2017-05-24] MEDS: levETIRAcetam 500 MG TAB PO SCH ×2 (07:38→20:48)
[2017-05-24] MEDS: PANTOPRAZOLE 40 MG TABLET PO SCH (07:39)
[2017-05-24] MEDS: cloNIDine HCL 0.1 MG TAB PO SCH ×3 (07:39→23:38)
--- NOTE | 2017-05-24 08:57 | P.PN ---
Progress Note - Text Patient is a pleasant 62-year-old female who is seen and examined at the bedside today for follow-up evaluation after undergoing a right hip hemiarthroplasty performed Wednesday following right femoral neck fracture sustained after a fall. Postsurgically, patient has remained relatively stable since being seen examined yesterday. Her blood pressure has had some improvement. Patient has not work with physical therapy this morning plans to do so. She states she does feel achiness in her legs and back and feels is due to prolonged lying in bed. We discussed while working with therapy would like to have her transferred to bedside chair and try sitting upright for a few hours. She has been able to increase her diet and has been tolerating foods more easily today. Her Ding catheter remains intact. We discussed we would like to discontinue this Ding catheter when she is able to increase her mobility. She is inquiring again about pain control. We discussed I feel it appropriate to continue with scheduled medications by Dr. Garcia as needed for pain control as long as her vital signs continued to be stable. Do not have any plans to increase her narcotic medications. Patient is currently able to receive MS Contin 30 mg twice daily, Dilaudid 1.5 mg every 3 hours IV, and Percocet 7.5 mg 3 times a day when necessary as needed for pain. This was again discussed in detail with the patient's nurse is well. Overall, patient continues to feel somewhat better as compared to prior to surgical intervention. Patient will need rehab at discharge. Patient states a test case developer has already discussed rehab placement with her yesterday. If she is able to get approval, she may plan for rehabilitation at [facility] as she worked through physical therapy there previously. Patient states again at the bedside today she is known to have a brain disorder was has not been clearly diagnosed and this sometimes gives her problems when trying to vocalize what she is feeling and can cause her some difficulty when trying to clearly understand the situation. Physical Exam Right Hip Hemiarthroplasty: Status post surgical day number 2 Patient is examined in bed with abductor pillow intact Patient is awake, alert, and oriented 3 Vital signs stable Good chest excursion with deep inspiration and expiration Abdomen soft nontender No signs or symptoms of DVT; no calf pain Abductor pillow intact Dressing of the right hip is clean, dry, and intact; no erythema, purulence, or signs of infection Full range of motion of ankles bilaterally Dorsiflexion, plantarflexion, and extensor hallucis longus positive sustained bilaterally Neurovascularly intact bilateral lower extremities Capillary refill less than 2 seconds bilateral lower extremities Ding catheter intact Assessment: Status post right hip hemiarthroplasty for right femoral neck fracture That is post fall Hip pain High risk narcotic pain management Hypertension Plan: 1. Patient may continue toe-touch weightbearing on the right lower extremity as tolerated on the lower extremity; patient may work with physical therapy to increase mobility and ambulation; We would like to attempt to have the patient transfer to bedside chair which she could sit upright for a few hours today; once in an upright position seated, she may sit without the abductor pillow intact 2. Continue pain control; patient may continue with narcotic pain medication as prescribed as needed by Dr. Garcia including MS Contin 30 mg twice a day, Percocet 7.5 mg/325 mg 3 times a day, and Dilaudid 1.5 mg IV push every 3 hours 3. Abductor pillow to remain in place at all times except while working with therapy and while sitting upright in a chair 4. Medicine to continue following the patient for their other medical issues putting hypertension 5. We will order and continue anticoagulation therapy with Lovenox 40mg subcu daily 6. We'll continue to follow the patient 7. Patient will most likely remain in the hospital over the next couple days with plans to discharge to rehab facility once cleared by medicine; case management currently trying for approval for patient to be discharged to [facility] rehabilitation 8. Patient can follow-up with Nic Oliveira PA-C or Dr. Kev Sanders at [facility] in 2-3 weeks following discharge
[2017-05-24] MEDS: SODIUM CHLORIDE 0.9% 1,000 ML IV SCH (09:38)
--- NOTE | 2017-05-24 11:21 | P.PN ---
Subjective Patient is being seen by me today for follow-up. She is doing fairly well. She is complaining that her pain is not well controlled. She is awaiting PT/OT evaluation. Objective - Vital Signs Vital signs: Vital Signs Temp 98.7 F 05/24/17 07:30 Pulse 65 05/24/17 07:30 Resp 18 05/24/17 07:30 BP 139/73 05/24/17 07:30 Pulse Ox 94 L 05/24/17 07:30 Intake & Output 05/23/17 05/24/17 05/24/17 18:59 06:59 18:59 Intake Total 900 1725 Output Total 900 Balance 900 825 Intake: Intake, IV Titration 900 525 Amount Sodium Chloride 0.9% 1, 900 525 000 ml @ 75 mls/hr IV . [id number] [facility] Rx#:[id number] Oral 1200 Output: Urine 900 Other: Voiding Method Indwelling Catheter Indwelling Catheter - Exam General: The patient is awake and alert, in no distress Eye: there is normal conjunctiva bilaterally. Neck: The neck is supple, there is no JVD. Cardiovascular: Normal S1-S2, no S3-S4, no murmurs. Respiratory: Lungs clear to auscultation bilaterally Gastrointestinal: Abdomen is soft, nontender Musculoskeletal: There is no pedal edema. Neurological:. Speech is normal. Skin: Skin is warm and dry - Labs CBC & Chem 7: 05/24/17 07:02 05/24/17 07:02 Labs: Abnormal Lab Results - Last 24 Hours (Table) 05/24/17 05/24/17 Range/Units 07:02 07:02 RBC 3.54 L (3.80-5.40) m/uL Hgb 11.1 L (11.4-16.0) gm/dL Hct 33.4 L (34.0-46.0) % Potassium 3.3 L (3.5-5.1) mmol/L Creatinine 0.45 L (0.52-1.04) mg/dL Glucose 101 H (74-99) mg/dL Calcium 8.1 L (8.4-10.2) mg/dL Total Protein 5.1 L (6.3-8.2) g/dL Albumin 2.9 L (3.5-5.0) g/dL Assessment and Plan Plan: #1 fall with acute right subcapital femoral neck fracture, status post right hip hemiarthroplasty #2 EKG revealing QT prolongation, medication that can cause prolongation of QT should be avoided. #3 underlying history of degenerative disc disease with stool back surgeries in the past and chronic pain issues currently managed by Dr. Ghosh as outpatient #4 previous history of brain disorder, not clearly identified, patient has memory loss history of seizures she was evaluated by Dr. Munoz in the past and was diagnosed with JESSICA. #4 chronic pain disorder #5 history of hypertension #6 for DVT Prophylaxis Please follow orthopedic protocol currently on subcu Lovenox #7 hypertension not well controlled increase losartan to 100 mg daily and increase clonidine dose to 0.1 mg 3 times a day
[2017-05-24 12:04] LABS: Basophils % (A) 0 %; CH 31.8; CHCM 33.8; Eosinophils # (A) 0.1 k/uL (0-0.7); Eosinophils % (A) 1 %; HCT 31.6 % (34.0-46.0); HDW 2.28; HGB 10.6 gm/dL (11.4-16.0); Luc # (Auto) 0.21; Luc % (Auto) 2; Lymphocytes # (A) 1.7 k/uL (1.0-4.8); Lymphocytes % (A) 17 %; MCH 31.7 pg (25.0-35.0); MCHC 33.6 g/dL (31.0-37.0); MCV 94.3 fL (80.0-100.0); Mean Platelet Volume 7.1; Monocytes # (A) 0.7 k/uL (0-1.0); Monocytes % (A) 7 %; Neutrophils # (A) 6.9 k/uL (1.3-7.7); Neutrophils % (A) 72 %; RBC 3.35 m/uL (3.80-5.40); RDW 12.6 % (11.5-15.5); WBC 9.6 k/uL (3.8-10.6); WBC (Perox) 10.14
--- NOTE | 2017-05-24 13:48 | P.CONS ---
History of Present Illness - Chief Complaint Walking difficulty - History of Present Illness I had the opportunity to see patient for inpatient rehab consultation with regard to walking difficulty. She was admitted to [facility] May 22 history slip and fall at home and right hip pain. X-ray demonstrated some Of fracture. Value by Dr. Sanders 9 same day underwent hemiarthroplasty replacement. Note right pelvic and femur x-rays positive for fracture. LS-spine with postoperative surgery L5 with spacer. Chest x-ray negative. PT reports two- person total assistance for bed mobility. OT prescribed. Previous functional history as elicited from patient: 62-year-old right-handed white female who is and lives then third-floor apartment with elevator , alone. Has a caregiver who lives down the floor. Patient is on disability. Describes that the caregiver does the laundry. Patient independent with a very simple cooking, standing shower. Using cruising technique around the house. Because of poor memory tries not to use a cane or walker which she has that she may forget them and knees and elsewhere in the building. Does not drive. Dr. abad jar his regular doctor. Smokes occasional pipe and does not drink. Review of Systems Review of systems: ENT: Denies sneezes or discharge. Eyes: Denies discharge or photophobia. Cardiac: Denies chest pain or palpitation. Pulmonary: Denies cough or shortness of breath. Breast: Denies discharge or lumps. Gastrointestinal: Denies nausea, emesis, constipation, diarrhea. Genitourinary: Denies discharge or frequency. Musculoskeletal: Multiple aches and pains that include the right hip which is new in the low back which is long-standing. Neurologic: Denies motor or sensory change. Readily describes memory problems. Endocrine: Denies shakes or sweats. Oncology: Denies cancers. Dermatologic: Denies rash, itching, pruritus. ALLERGY/immunology: Denies sneezes, rashes. Past Medical History Past Medical History: Asthma, Fibromyalgia, Hyperlipidemia, Hypertension, Memory Impairment, Musculoskeletal Disorder, Osteoarthritis (OA), Seizure Disorder Additional Past Medical History / Comment(s): BACK PAIN, SHORT TERM MEMORY LOSS , history of lumbar spine surgery 2 at outside institutions. History of multiple treatments and procedures with interventional pain management chronically. She is on chronic high-dose oral pain medications including morphine and Percocet. with pain management. History of Any Multi-Drug Resistant Organisms: None Reported Past Surgical History: Adenoidectomy, Back Surgery, Breast Surgery, Joint Replacement, Orthopedic Surgery, Tonsillectomy Additional Past Surgical History / Comment(s): , LT HAND SURGERY, RT GANGLION CYST REMOVED, LEEP, COLONOSCOPY, EGD, MIGUEL A. CATARACT WITH LENS IMLANTS,RT BREAST BIOPSY, 2 BACK SURGERIES- ONE WAS A LAMINECTOMY, TOTAL LEFT KNEE Past Anesthesia/Blood Transfusion Reactions: No Reported Reaction Past Psychological History: No Psychological Hx Reported Smoking Status: Light tobacco smoker Past Alcohol Use History: None Reported Past Drug Use History: None Reported - Past Family History Brother(s) Family Medical History: Cancer Additional Family Medical History / Comment(s): PANCREATITIS Mother Family Medical History: Hypertension, Memory Impairment Additional Family Medical History / Comment(s): ALZHEIMER'S Father Family Medical History: Coronary Artery Disease (CAD) Additional Family Medical History / Comment(s): HEART PROBLEMS-HAD QUAD- CABG, ALCOHOLISM Medications and Allergies Home Medications Medication Instructions Recorded Confirmed Type DULoxetine HCL [Cymbalta] 60 mg PO HS 02/27/14 05/22/17 History Omeprazole 40 mg PO QAM 02/27/14 05/22/17 History Rosuvastatin [Crestor] 10 mg PO HS 02/27/14 05/22/17 History levETIRAcetam [Keppra] 500 mg PO BID 02/27/14 05/22/17 History Losartan Potassium [Cozaar] 50 mg PO QAM 02/04/15 05/22/17 History Ergocalciferol [Vitamin D2] 50,000 unit PO FR 06/10/15 05/22/17 History cloNIDine HCL [Catapres] 0.1 mg PO DAILY 05/19/16 05/22/17 History ALPRAZolam [Xanax] 0.25 mg PO BID PRN 06/22/16 05/22/17 History Morphine Sulfate ER [Ms Contin] 30 mg PO BID PRN 03/08/17 05/22/17 History oxyCODONE-APAP 7.5-325MG [Percocet 1 tab PO TID PRN 03/08/17 05/22/17 History 7.5-325 mg] Butalb/APAP/Caff 50-325-40Mg 1 tab PO Q8H PRN 05/22/17 05/22/17 History [Fioricet 50-325-40] Carisoprodol [Soma] 350 mg PO TID PRN 05/22/17 05/22/17 History Allergies Allergy/AdvReac Type Severity Reaction Status Date / Time nitrofurantoin AdvReac Abdominal Verified 05/22/17 12:10 [From Macrobid] Pain/Nausea/Vomiting NSAIDS (Non-Steroidal AdvReac Nausea & Verified 05/22/17 02:13 Anti-Inflamma Vomiting Physical Exam Vitals: Vital Signs Temp Pulse Resp BP Pulse Ox 05/24/17 07:30 98.7 F 65 18 139/73 94 L 05/24/17 00:00 88 16 05/23/17 23:22 97.6 F 69 16 155/72 96 05/23/17 15:43 98.8 F 67 18 119/59 94 L Intake and Output 05/23/17 05/24/17 05/24/17 22:59 06:59 14:59 Intake Total 900 1725 Output Total 200 700 Balance 700 1025 Intake: Intake, IV Titration 900 525 Amount Sodium Chloride 0.9% 1, 900 525 000 ml @ 75 mls/hr IV . [id number] [facility] Rx#:[id number] Oral 1200 Output: Urine 200 700 Other: Voiding Method Indwelling Catheter Indwelling Catheter Skin: Atrophic, intact. General: Medium build and generally comfortable appearance. Head: Normocephalic, atraumatic. Eyes: Symmetric. Pupils equal round. Ears: Symmetric. Hearing within normal limits. Mouth: Clear. Neck: Supple. Carotid without bruit. Cardiac: Regular rate and rhythm. Lungs: Clear anteriorly and posteriorly. Abdomen: Soft active nontender. Extremities: Normal tone. Right hip clean and bandaged. Neurological: Mental status: Alert, cooperative, pleasant. Cranial nerves: Symmetric facial tone and trapezius. Motor: Actively elevates both arms. Elevates left leg at best antigravity. Right leg poor secondary to right hip discomfort. Sensation: Intact throughout. DTRs: Symmetric and equal throughout. Mobility: Did not attempt to stand from low Joanne chair on my own due to previous need of total assistance. Results CBC & Chem 7: 05/24/17 11:43 05/24/17 07:02 Labs: Abnormal Lab Results - Last 24 Hours (Table) 0705/24/17 05/24/17 Range/Units 07:02 07:02 11:43 RBC 3.54 L 3.35 L (3.80-5.40) m/uL Hgb 11.1 L 10.6 L (11.4-16.0) gm/dL Hct 33.4 L 31.6 L (34.0-46.0) % Potassium 3.3 L (3.5-5.1) mmol/L Creatinine 0.45 L (0.52-1.04) mg/dL Glucose 101 H (74-99) mg/dL Calcium 8.1 L (8.4-10.2) mg/dL Total Protein 5.1 L (6.3-8.2) g/dL Albumin 2.9 L (3.5-5.0) g/dL Chest x-ray: report reviewed (Negative.) Assessment and Plan (1) Subcapital fracture of neck of femur Status: Acute Plan: Impression: 1. Walking difficulty. 2. Right femoral neck subcapital fracture status post hemiarthroplasty replacement, 05/22. 3. Fiber myalgia. 4. Memory impairment. 5. Hypertension. 6. Dyslipidemia. 7. Seizure disorder. 8. Asthma. 9. Osteoarthritis. Comments and plan: At this time PT going and OT prescribed. PT reports two- person assistance currently. Because of this, patient is already discussed at [facility] placement mention. This would appear to be appropriate recommendation today.
[2017-05-24] MEDS: CARISOPRODOL 350 MG TAB PO PRN (14:50)
[2017-05-24] MEDS: ATORVASTATIN 20 MG TAB PO SCH (20:48)
[2017-05-24] MEDS: DULoxetine HCL 60 MG CAPSULE.DR PO SCH (20:49)
[2017-05-24 22:57] VITALS: RESP 16
[2017-05-25] MEDS: HYDROmorphone 1 MG/ML 1 ML SYRINGE IVP PRN (03:40)
[2017-05-25] MEDS: ALPRAZolam 0.25 MG TAB PO SCH ×2 (05:53→16:30)
[2017-05-25] MEDS: oxyCODONE-APAP 7.5-325MG 1 EACH TAB PO PRN (05:53)
--- NOTE | 2017-05-25 08:57 | P.PN ---
Progress Note - Text Patient is a pleasant 62-year-old female who is seen and examined at the bedside today for follow-up evaluation after undergoing a right hip hemiarthroplasty performed Wednesday following right femoral neck fracture sustained after a fall. Postsurgically, patient has remained relatively stable since being seen examined yesterday. She continues to have pain at the right hip, across the lower lumbar spine, and down the right lower extremity but does feel her pain has been better controlled. She is happy at the bedside today and smiling. Her blood pressure has had some improvement. She plans to work with physical therapy today. We discussed would like to see her improve her mobility and ambulation. We discussed she may toe-touch weightbearing on the right lower extremity. She has continued to be able to increase her diet and has been tolerating foods more easily today. Her Ding catheter remains intact. We discussed we would like to discontinue this Ding catheter when she is able to increase her mobility. She states her pain has been better controlled today as long as the current narcotic pain medicine regimen is continued. I feel it appropriate to continue with scheduled medications by Dr. Garcia as needed for pain control as long as her vital signs continued to be stable. Do not have any plans to increase her narcotic medications. Patient is currently able to receive MS Contin 30 mg twice daily, Dilaudid 1.5 mg every 3 hours IV, and Percocet 7.5 mg 3 times a day when necessary as needed for pain. This was again discussed in detail with the patient's nurse is well. Since being seen and examined yesterday, she has been examined by Dr. Gandhi for inpatient rehab and he is currently recommending placement to [facility] as she is currently a 2 person assist. Physical Exam Right Hip Hemiarthroplasty: Status post surgical day number 3 Patient is examined in bed with abductor pillow intact Patient is awake, alert, and oriented 3 Vital signs stable Good chest excursion with deep inspiration and expiration Abdomen soft nontender No signs or symptoms of DVT; no calf pain Abductor pillow intact Dressing of the right hip is clean, dry, and intact; no erythema, purulence, or signs of infection Dressing is removed during physical examination Incision is clean, dry, and intact; no active drainage No significant pain with palpation along the incision site Full range of motion of ankles bilaterally Dorsiflexion, plantarflexion, and extensor hallucis longus positive sustained bilaterally Neurovascularly intact bilateral lower extremities Capillary refill less than 2 seconds bilateral lower extremities Ding catheter intact Assessment: Status post right hip hemiarthroplasty for right femoral neck fracture That is post fall Hip pain High risk narcotic pain management Hypertension Plan: 1. Patient may continue toe-touch weightbearing on the right lower extremity as tolerated on the lower extremity; patient may work with physical therapy to increase mobility and ambulation; We would like again for her to transfer to bedside chair which she could sit upright for a few hours today; once in an upright position seated, she may sit without the abductor pillow intact 2. Continue pain control; patient may continue with narcotic pain medication as prescribed as needed by Dr. Garcia including MS Contin 30 mg twice a day, Percocet 7.5 mg/325 mg 3 times a day, and Dilaudid 1.5 mg IV push every 3 hours 3. Abductor pillow to remain in place at all times except while working with therapy and while sitting upright in a chair 4. Medicine to continue following the patient for their other medical issues putting hypertension 5. We will order and continue anticoagulation therapy with Lovenox 40mg subcu daily; we will continue with anticoagulation for 4 weeks following discharge 6. We'll continue to follow the patient; patient is clear for discharge once cleared by medicine and approval has been obtained for rehabilitation placement 7. Patient will most likely remain in the hospital over the next couple days with plans to discharge to rehab facility once cleared by medicine; case management currently trying for approval for patient to be discharged to [facility] rehabilitation; Patient has been seen and examined by Dr. Gandhi. Per his recommendations, he feels the patient would be better placed at [facility] rehabilitation facility as she is currently a 2 person assist 8. Patient can follow-up with Nic Oliveira PA-C or Dr. Kev Sanders at [facility] in 2-3 weeks following discharge
[2017-05-25] MEDS: MORPHINE SULFATE ER 30 MG TABLET PO SCH ×2 (09:05→21:21)
[2017-05-25] MEDS: levETIRAcetam 500 MG TAB PO SCH ×2 (09:05→20:22)
[2017-05-25] MEDS: cloNIDine HCL 0.1 MG TAB PO SCH ×3 (09:06→21:23)
[2017-05-25] MEDS: ENOXAPARIN 40 MG/0.4 ML SYRINGE SQ SCH (09:06)
[2017-05-25] MEDS: PANTOPRAZOLE 40 MG TABLET PO SCH (09:06)
[2017-05-25] MEDS: LOSARTAN 50 MG TAB PO SCH (09:06)
[2017-05-25] MEDS: DIAZEPAM 5 MG TAB PO PRN ×2 (09:11→21:22)
[2017-05-25] MEDS: SENNOSIDES-DOCUSATE SODIUM 1 EACH TAB PO SCH (12:20)
[2017-05-25] MEDS: CARISOPRODOL 350 MG TAB PO PRN ×2 (12:24→20:22)
--- NOTE | 2017-05-25 13:55 | P.PN ---
Subjective No issues overnight Objective - Vital Signs Vital signs: Vital Signs Temp 98.1 F 05/25/17 07:00 Pulse 68 05/25/17 08:00 Resp 16 05/25/17 08:00 BP 108/64 05/25/17 09:07 Pulse Ox 91 L 05/25/17 07:00 Intake & Output 05/24/17 05/25/17 05/25/17 18:59 06:59 18:59 Intake Total 1080 Output Total 900 Balance 180 Intake: Oral 1080 Output: Urine 900 Other: Voiding Method Indwelling Catheter Indwelling Catheter Indwelling Catheter - Exam General: The patient is awake and alert, in no distress Eye: there is normal conjunctiva bilaterally. Neck: The neck is supple, there is no JVD. Cardiovascular: Normal S1-S2, no S3-S4, no murmurs. Respiratory: Lungs clear to auscultation bilaterally Gastrointestinal: Abdomen is soft, nontender Musculoskeletal: There is no pedal edema. Neurological:. Speech is normal. Skin: Skin is warm and dry - Labs CBC & Chem 7: 05/24/17 11:43 05/24/17 07:02 Assessment and Plan Plan: #1 fall with acute right subcapital femoral neck fracture, status post right hip hemiarthroplasty #2 EKG revealing QT prolongation, medication that can cause prolongation of QT should be avoided. #3 underlying history of degenerative disc disease with stool back surgeries in the past and chronic pain issues currently managed by Dr. Ghosh as outpatient #4 previous history of brain disorder, not clearly identified, patient has memory loss history of seizures she was evaluated by Dr. Munoz in the past and was diagnosed with JESSICA. #4 chronic pain disorder #5 history of hypertension #6 for DVT Prophylaxis Please follow orthopedic protocol currently on subcu Lovenox #7 hypertension not well controlled increase losartan to 100 mg daily and increase clonidine dose to 0.1 mg 3 times a day Need to be transitioned to by mouth pain regimen to be accepted to [facility]. We'll discontinue IV Dilaudid today. Discontinue Percocet. Continue MS Contin twice daily. By mouth Dilaudid 1 mg every 4 hours as needed.
[2017-05-25] MEDS: HYDROmorphone 2 MG TAB PO PRN ×3 (14:08→23:18)
[2017-05-25] MEDS ORDERED: POTASSIUM CHLORIDE ER 20 MEQ TAB.ER PO STA (15:52)
[2017-05-25] MEDS: DULoxetine HCL 60 MG CAPSULE.DR PO SCH (20:22)
[2017-05-25] MEDS: ATORVASTATIN 20 MG TAB PO SCH (20:22)
[2017-05-26] MEDS: CARISOPRODOL 350 MG TAB PO PRN ×2 (03:45→12:47)
[2017-05-26] MEDS: ALPRAZolam 0.25 MG TAB PO SCH (03:45)
[2017-05-26] MEDS: DIAZEPAM 5 MG TAB PO PRN ×2 (05:55→12:47)
[2017-05-26] MEDS: HYDROmorphone 2 MG TAB PO PRN ×3 (05:55→13:39)
[2017-05-26 08:21] VITALS: BP 136/82; PULSE 77; TEMP 99
[2017-05-26] MEDS: levETIRAcetam 500 MG TAB PO SCH (08:22)
[2017-05-26] MEDS: PANTOPRAZOLE 40 MG TABLET PO SCH (08:22)
[2017-05-26] MEDS: ENOXAPARIN 40 MG/0.4 ML SYRINGE SQ SCH (08:22)
[2017-05-26] MEDS: cloNIDine HCL 0.1 MG TAB PO SCH (08:22)
[2017-05-26] MEDS: LOSARTAN 50 MG TAB PO SCH (08:22)
[2017-05-26] MEDS: MORPHINE SULFATE ER 30 MG TABLET PO SCH (08:23)
[2017-05-26] MEDS: SENNOSIDES-DOCUSATE SODIUM 1 EACH TAB PO SCH (09:12)
[2017-05-26 09:21] LABS: Basophils % (A) 0 %; CH 31.5; Eosinophils # (A) 0.3 k/uL (0-0.7); Eosinophils % (A) 4 %; HCT 31.6 % (34.0-46.0); HDW 2.48; HGB 10.8 gm/dL (11.4-16.0); Luc # (Auto) 0.27; Luc % (Auto) 4; Lymphocytes # (A) 1.8 k/uL (1.0-4.8); Lymphocytes % (A) 23 %; MCH 31.7 pg (25.0-35.0); Mean Platelet Volume 7.2; Monocytes # (A) 0.7 k/uL (0-1.0); Monocytes % (A) 9 %; Neutrophils # (A) 4.7 k/uL (1.3-7.7); Neutrophils % (A) 60 %; RDW 12.3 % (11.5-15.5); WBC 7.8 k/uL (3.8-10.6); WBC (Perox) 7.77
[2017-05-26 09:26] LABS: Anion Gap 6 mmol/L; Blood Urea Nitrogen 7 mg/dL (7-17); Calcium 8.2 mg/dL (8.4-10.2); Carbon Dioxide 29 mmol/L (22-30); Chloride 103 mmol/L (98-107); Glucose 104 mg/dL (74-99); Non-African American GFR(MDRD) >60 (>60 ml/min/1.73 sqM); Potassium 3.7 mmol/L (3.5-5.1); Sodium 138 mmol/L (137-145)
--- NOTE | 2017-05-26 11:37 | P.DS ---
Providers Date of admission: 05/22/17 02:30 Expected date of discharge: 05/26/17 Attending physician: Jaylan Garcia Consults: 05/22/17 02:31 Consult Physician Urgent Consulting Provider: Nic Oliveira Consult Reason/Comments: acute right subcapital femoral neck fracture Do you want consulting provider notified?: Yes 05/24/17 10:17 Consult Physician Routine Consulting Provider: Fredrick Gandhi Consult Reason/Comments: eval for inpatient rehab Do you want consulting provider notified?: Yes Primary care physician: [facility] Course: #1 fall with acute right subcapital femoral neck fracture, status post right hip hemiarthroplasty #2 EKG revealing QT prolongation, medication that can cause prolongation of QT should be avoided. #3 underlying history of degenerative disc disease with stool back surgeries in the past and chronic pain issues currently managed by Dr. Ghosh as outpatient #4 chronic pain disorder #5 history of hypertension #6 for DVT Prophylaxis on subcu Lovenox for 1 month #7 hypertension not well controlled increased losartan to 100 mg daily Patient Condition at Discharge: Stable Plan - Discharge Summary New Discharge Prescriptions: New Enoxaparin [Lovenox] 40 mg SQ DAILY #30 syr HYDROmorphone [Dilaudid] 1 mg PO Q4HR PRN #30 tab PRN Reason: Pain Losartan [Cozaar] 100 mg PO DAILY #30 tab Sennosides-Docusate Sodium [Senokot-S] 1 each PO DAILY #30 tab Continue Rosuvastatin [Crestor] 10 mg PO HS levETIRAcetam [Keppra] 500 mg PO BID DULoxetine HCL [Cymbalta] 60 mg PO HS Omeprazole 40 mg PO QAM Ergocalciferol [Vitamin D2 (DRISDOL)] 50,000 unit PO FR cloNIDine HCL [Catapres] 0.1 mg PO DAILY ALPRAZolam [Xanax] 0.25 mg PO BID PRN #30 PRN Reason: Anxiety Morphine Sulfate ER [Ms Contin] 30 mg PO BID PRN #30 PRN Reason: Pain Discontinued Losartan Potassium [Cozaar] 50 mg PO QAM oxyCODONE-APAP 7.5-325MG [Percocet 7.5-325 mg] 1 tab PO TID PRN PRN Reason: Pain Butalb/APAP/Caff 50-325-40Mg [Fioricet 50-325-40] 1 tab PO Q8H PRN PRN Reason: Migraine Headache Carisoprodol [Soma] 350 mg PO TID PRN PRN Reason: Muscle Spasm Discharge Medication List DULoxetine HCL [Cymbalta] 60 mg PO HS 02/27/14 [History] Omeprazole 40 mg PO QAM 02/27/14 [History] Rosuvastatin [Crestor] 10 mg PO HS 02/27/14 [History] levETIRAcetam [Keppra] 500 mg PO BID 02/27/14 [History] Ergocalciferol [Vitamin D2 (DRISDOL)] 50,000 unit PO FR 06/10/15 [History] cloNIDine HCL [Catapres] 0.1 mg PO DAILY 05/19/16 [History] ALPRAZolam [Xanax] 0.25 mg PO BID PRN #30 05/26/17 [Rx] Enoxaparin [Lovenox] 40 mg SQ DAILY #30 syr 05/26/17 [Rx] HYDROmorphone [Dilaudid] 1 mg PO Q4HR PRN #30 tab 05/26/17 [Rx] Losartan [Cozaar] 100 mg PO DAILY #30 tab 05/26/17 [Rx] Morphine Sulfate ER [Ms Contin] 30 mg PO BID PRN #30 05/26/17 [Rx] Sennosides-Docusate Sodium [Senokot-S] 1 each PO DAILY #30 tab 05/26/17 [Rx] Follow up Appointment(s)/Referral(s): Nic Oliveira PAC [PHYSICIAN BEHAVIORAL SERVICES TECH] - 2 Weeks (Patient may follow-up with Nic Oliveira PA-C or Dr. Kev Sanders at [facility] in 2-3 weeks following discharge. ) Zuri Damon, [NON-STAFF] - As Needed Jaylan Garcia MD [Primary Care Provider] - 1 Week Activity/Diet/Wound Care/Special Instructions: 1. Keep dressing and incision over the right hip clean, dry, and intact 2. Patient may shower without a dressing if incision remains dry for 3 days 3. Continue toe-touch weightbearing only on the right lower extremity 4. Continue to work with physical therapy to increase mobility and ambulation 5. May continue daily with the assistance of a walker as needed 6. Keep abductor pillow intact at all times except while working with therapy Discharge Disposition: TRANSFER TO SNF/ECF
--- NOTE | 2017-05-26 13:37 | P.PN ---
Progress Note - Text Patient is a pleasant 62-year-old female who is seen and examined at the bedside today for follow-up evaluation after undergoing a right hip hemiarthroplasty performed Wednesday following right femoral neck fracture sustained after a fall. Today at the bedside the patient is more frustrated as she states her pain medications have been changed. She states she feels she is unable to do activities because her pain is not adequately controlled. She states they have discontinued her IV pain medication. She states she has not been out of bed since yesterday. She states she feels her pain is not controlled well enough. We discussed medicine was trying to help wean her IV narcotic pain medication in preparation for discharge to rehabilitation. She states she has not been eating much because she feels more pain but is able to eat without difficulty. Her symptoms status remained relatively the same since yesterday is just that she feels her pain is more severe today. She continues to have pain at the right hip, across the lower lumbar spine, and down the right lower extremity. She states she is also removed her abductor pillow while lying in bed and she is not comfortable with it intact. We discussed in significant detail this abductor pillow must continue to remain intact while lying in bed. Her Ding catheter was able to be discontinued yesterday. We will plan to have her work with physical therapy today. We discussed she may toe-touch weightbearing on the right lower extremity. We discussed I feel it is appropriate to continue with scheduled medications by Dr. Garcia as needed for pain control as long as her vital signs continued to be stable. Do not have any plans to increase her narcotic medications. Patient is currently able to receive MS Contin 30 mg twice daily, Dilaudid 1.5 mg every 3 hours IV, and Percocet 7.5 mg 3 times a day when necessary as needed for pain. This was again discussed in detail with the patient's nurse is well. Patient is currently scheduled to be discharged to [facility] today. Physical Exam Right Hip Hemiarthroplasty: Status post surgical day number 4 Patient is examined in bed with abductor pillow intact Patient is awake, alert, and oriented 3 Vital signs stable Good chest excursion with deep inspiration and expiration Abdomen soft nontender No signs or symptoms of DVT; no calf pain Abductor pillow not currently intact Dressing of the right hip is clean, dry, and intact; no erythema, purulence, or signs of infection Dressing is removed during physical examination Incision is clean, dry, and intact; no active drainage No significant pain with palpation along the incision site Full range of motion of ankles bilaterally Dorsiflexion, plantarflexion, and extensor hallucis longus positive sustained bilaterally Neurovascularly intact bilateral lower extremities Capillary refill less than 2 seconds bilateral lower extremities Ding catheter has been discontinued Assessment: Status post right hip hemiarthroplasty for right femoral neck fracture That is post fall Hip pain High risk narcotic pain management Hypertension Plan: 1. Patient may continue toe-touch weightbearing on the right lower extremity as tolerated on the lower extremity; patient may work with physical therapy to increase mobility and ambulation; We would like again for her to transfer to bedside chair which she could sit upright for a few hours today; once in an upright position seated, she may sit without the abductor pillow intact 2. Continue pain control; patient may continue with narcotic pain medication as prescribed as needed by Dr. Garcia including MS Contin 30 mg twice a day, Percocet 7.5 mg/325 mg 3 times a day, and Dilaudid 1.5 mg IV push every 3 hours ; Medicine to prescribe pain medication at discharge 3. Abductor pillow to remain in place at all times except while working with therapy and while sitting upright in a chair 4. Medicine to continue following the patient for their other medical issues putting hypertension 5. Continue with anticoagulation therapy with Lovenox 40mg subcu daily; we will continue with anticoagulation for 4 weeks following discharge 6. We'll continue to follow the patient; patient is clear for discharge once cleared by medicine and approval has been obtained for rehabilitation placement 7. Patient is currently planning to be discharged to [facility] today, 05/26/2017, per medicine 8. Patient can follow-up with Nic Oliveira PA-C or Dr. Kev Sanders at [facility] in 2-3 weeks following discharge
== END 2017-05-26 14:20 | DRG 470 ==
LOC: EC 00:27 → 5MS5E 02:30
PROVIDERS: ADMIT Internal Medicine; ATTEND Internal Medicine
PROC: 0SRR01A Replacement of Right Hip Joint, Femoral Surface with Metal Synthetic Substitute, Uncemented, Open Approach (ICD-10-PCS; principal; 2017-05-22 11:53)
DX: S72.011A Unspecified intracapsular fracture of right femur, initial encounter for closed fracture (principal); I45.81 Long QT syndrome; F06.8 Other specified mental disorders due to known physiological condition; M79.7 Fibromyalgia; E78.5 Hyperlipidemia, unspecified; I10 Essential (primary) hypertension; M19.91 Primary osteoarthritis, unspecified site; F17.200 Nicotine dependence, unspecified, uncomplicated; R29.6 Repeated falls; G89.29 Other chronic pain; G40.909 Epilepsy, unspecified, not intractable, without status epilepticus; J45.909 Unspecified asthma, uncomplicated; M54.5 Low back pain; R26.2 Difficulty in walking, not elsewhere classified; W01.0XXA Fall on same level from slipping, tripping and stumbling without subsequent striking against object, initial encounter; Z79.899 Other long term (current) drug therapy; Z96.652 Presence of left artificial knee joint; Z98.42 Cataract extraction status, left eye; Z98.41 Cataract extraction status, right eye; Z96.1 Presence of intraocular lens; Z88.1 Allergy status to other antibiotic agents; Z88.8 Allergy status to other drugs, medicaments and biological substances; Y92.009 Unspecified place in unspecified non-institutional (private) residence as the place of occurrence of the external cause
CPT/HCPCS: 36415; 71010; 72100; 72170; 73501; 80048; 80053; 81001; 85025; 85610; 85730; 88305; 88311; 93005; 96374; 96376; 99285

== ENCOUNTER → 2017-08-04 | Outpatient (CLI) | payer MEDICARE, OTHER ==
[2017-08-04 12:59] LABS: Non-African American GFR(MDRD) >60 (>60 ml/min/1.73 sqM)
--- NOTE | 2017-08-04 14:25 | MR ---
EXAMINATION TYPE: MR brain wo/w con DATE OF EXAM: 08/04/2017 COMPARISON: MRI brain April 19, 2015 HISTORY: confusion/ disorientation per order. Memory loss per patient. TECHNIQUE: Multiplanar, multisequence images of the brain and brainstem is performed without and with IV contras t, utilizing 7.5 mL intravenous Gadavist . FINDINGS: Diffusion weighted images demonstrate no evidence of a recent infarct or other diffusion ab normality. There is no worrisome extra-axial fluid collection. The ventricular system and cisternal spaces are normal in size and appearance. The brain volume is age appropriate. Large infarctions me dially in the bilateral occipital lobes are redemonstrated. There is additional focal infarct in the inferior occipital lobes bilaterally redemonstrated, right greater than left near axial image 15 not significantly changed from prior. There are few scattered foci of T2 hyperintensity seen throughout t he white matter bilaterally largest lesion measures 6 mm on axial image 22 posterior right frontal le virginie and is stable from prior. There is old lacunar infarct right head of caudate nucleus on axial liliya ge 17 redemonstrated. Midline structures demonstrate normal morphology. The craniocervical junction appears within normal limits. Post contrast images demonstrate no abnormal enhancement. The dural venous sinuses appear pa tent. The visualized sinuses are clear and the globes are intact. IMPRESSION: No evidence of a recent infarct. 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 No significant change from prior study noted.
== END | disposition home or self-care (01) ==
LOC: RADMRIMAIN 12:18
PROVIDERS: ATTEND Psychiatry & Neurology Neurology
DX: R41.0 Disorientation, unspecified (principal); R40.4 Transient alteration of awareness
CPT/HCPCS: 82565; 70553; 36415; A9581

== ENCOUNTER 2017-08-24 17:42 | Emergency (ER) | payer MEDICARE, OTHER ==
[2017-08-24 17:48] VITALS: BP 121/70; PULSE 73; RESP 20; TEMP 98
[2017-08-24] MEDS ORDERED: HYDROmorphone 2 MG/ML 1 ML SYRINGE IM STA (18:10)
--- NOTE | 2017-08-24 18:10 | ED ---
General Adult HPI - General Chief complaint: Recheck/Abnormal Lab/Rx Stated complaint: arm pain Time Seen by Provider: 08/24/17 17:44 Source: EMS, RN notes reviewed, old records reviewed Mode of arrival: EMS Limitations: no limitations - History of Present Illness Initial comments: This is a 62-year-old female to the ER for evaluation. Patient reindeer today for evaluation of recurrent falls. Arm pain. Known fracture of humerus. Patient's continue with pain worsening pain. Patient has history of chronic pain. Her pain medication that she takes is not helping at this time - Related Data Home Medications Medication Instructions Recorded Confirmed DULoxetine HCL [Cymbalta] 60 mg PO HS 02/27/14 08/21/17 Omeprazole 40 mg PO QAM 02/27/14 08/21/17 Rosuvastatin [Crestor] 10 mg PO HS 02/27/14 08/21/17 Ergocalciferol [Vitamin D2 50,000 unit PO FR 06/10/15 08/21/17 (DRISDOL)] cloNIDine HCL [Catapres] 0.1 mg PO DAILY 05/19/16 08/21/17 Previous Rx's Medication Instructions Recorded ALPRAZolam [Xanax] 0.25 mg PO BID PRN #30 05/26/17 Enoxaparin [Lovenox] 40 mg SQ DAILY #30 syr 05/26/17 HYDROmorphone [Dilaudid] 1 mg PO Q4HR PRN #30 tab 05/26/17 Losartan [Cozaar] 100 mg PO DAILY #30 tab 05/26/17 Morphine Sulfate ER [Ms Contin] 30 mg PO BID PRN #30 05/26/17 Sennosides-Docusate Sodium 1 each PO DAILY #30 tab 05/26/17 [Senokot-S] Allergies Allergy/AdvReac Type Severity Reaction Status Date / Time nitrofurantoin AdvReac Abdominal Verified 08/24/17 17:48 [From Macrobid] Pain/Nausea/Vomiting NSAIDS (Non-Steroidal AdvReac Nausea & Verified 08/24/17 17:48 Anti-Inflamma Vomiting Review of Systems ROS Statement: Those systems with pertinent positive or pertinent negative responses have been documented in the HPI. ROS Other: All systems not noted in ROS Statement are negative. Past Medical History Past Medical History: Asthma, Fibromyalgia, Hyperlipidemia, Hypertension, Memory Impairment, Musculoskeletal Disorder, Osteoarthritis (OA), Seizure Disorder Additional Past Medical History / Comment(s): BACK PAIN, SHORT TERM MEMORY LOSS , history of lumbar spine surgery 2 at outside institutions. History of multiple treatments and procedures with interventional pain management chronically. She is on chronic high-dose oral pain medications including morphine and Percocet. with pain management. History of Any Multi-Drug Resistant Organisms: None Reported Past Surgical History: Adenoidectomy, Back Surgery, Breast Surgery, Joint Replacement, Orthopedic Surgery, Tonsillectomy Additional Past Surgical History / Comment(s): , LT HAND SURGERY, RT GANGLION CYST REMOVED, LEEP, COLONOSCOPY, EGD, MIGUEL A. CATARACT WITH LENS IMLANTS,RT BREAST BIOPSY, 2 BACK SURGERIES- ONE WAS A LAMINECTOMY, TOTAL LEFT KNEE Past Anesthesia/Blood Transfusion Reactions: No Reported Reaction Past Psychological History: No Psychological Hx Reported Smoking Status: Light tobacco smoker Past Alcohol Use History: None Reported Past Drug Use History: None Reported - Past Family History Brother(s) Family Medical History: Cancer Additional Family Medical History / Comment(s): PANCREATITIS Mother Family Medical History: Hypertension, Memory Impairment Additional Family Medical History / Comment(s): ALZHEIMER'S Father Family Medical History: Coronary Artery Disease (CAD) Additional Family Medical History / Comment(s): HEART PROBLEMS-HAD QUAD- CABG, ALCOHOLISM General Exam - General Exam Comments Initial Comments: Left arm deformity Limitations: no limitations General appearance: alert, in no apparent distress Head exam: Present: atraumatic, normocephalic, normal inspection Eye exam: Present: normal appearance, PERRL, EOMI. Absent: scleral icterus, conjunctival injection, periorbital swelling ENT exam: Present: normal exam, mucous membranes moist Neck exam: Present: normal inspection. Absent: tenderness, meningismus, lymphadenopathy Respiratory exam: Present: normal lung sounds bilaterally. Absent: respiratory distress, wheezes, rales, rhonchi, stridor Cardiovascular Exam: Present: regular rate, normal rhythm, normal heart sounds. Absent: systolic murmur, diastolic murmur, rubs, gallop, clicks GI/Abdominal exam: Present: soft, normal bowel sounds. Absent: distended, tenderness, guarding, rebound, rigid Extremities exam: Present: normal inspection, full ROM, normal capillary refill. Absent: tenderness, pedal edema, joint swelling, calf tenderness Back exam: Present: normal inspection Neurological exam: Present: alert, oriented X3, CN II-XII intact Psychiatric exam: Present: normal affect, normal mood Skin exam: Present: warm, dry, intact, normal color. Absent: rash Course Vital Signs 08/24/17 17:44 Temperature 98 F Pulse Rate 73 Respiratory 20 Rate Blood Pressure 121/70 O2 Sat by Pulse 98 Oximetry Medical Decision Making - Medical Decision Making 62 female ER with recurrent falls. Patient to follow-up with orthopedics regarding fracture care - Radiology Data Radiology results: report reviewed (X-ray shows positive fracture humerus), image reviewed Disposition Clinical Impression: Fracture of neck of humerus, Subcapital fracture of neck of femur Disposition: HOME SELF-CARE Condition: Good Instructions: Proximal Humerus Fracture (ED) Referrals: Jaylan Garcia MD [Primary Care Provider] - 1-2 days
--- NOTE | 2017-09-02 03:17 | CDI ---
Documentation Clarification OP Dear Seth Chung, DO Please do addendum to ED report that complete HPI, Physical Exam and MDM. Thank you, Billie Partida Survey Party Chief If you have any questions, please contact Solutions Manager at [phone] [facility]
== END 2017-08-24 18:36 | disposition home or self-care (01) ==
LOC: EC 17:42
DX: S42.291A Other displaced fracture of upper end of right humerus, initial encounter for closed fracture (principal); S72.011A Unspecified intracapsular fracture of right femur, initial encounter for closed fracture; E78.5 Hyperlipidemia, unspecified; I10 Essential (primary) hypertension; F17.290 Nicotine dependence, other tobacco product, uncomplicated; Z79.899 Other long term (current) drug therapy; Z88.1 Allergy status to other antibiotic agents; Z88.6 Allergy status to analgesic agent; W19.XXXA Unspecified fall, initial encounter
CPT/HCPCS: 99284; 96372; J1170

== ENCOUNTER 2017-09-04 10:33 | Emergency (ER) | payer MEDICARE, OTHER ==
[2017-09-04 10:42] VITALS: RESP 20
[2017-09-04] MEDS ORDERED: ONDANSETRON 4 MG ODT STARTER PACK 2 TAB BTL PO STA (11:01)
--- NOTE | 2017-09-04 11:06 | ED ---
General Adult HPI - General Chief complaint: Recheck/Abnormal Lab/Rx Stated complaint: Nausea, Pain Time Seen by Provider: 09/04/17 10:46 Source: patient, EMS, RN notes reviewed, old records reviewed Mode of arrival: EMS Limitations: no limitations - History of Present Illness Initial comments: Patient is a 62-year-old female who presents emergency room today by EMS, with chief complaint of medication refill. She does admit to a humerus fracture that occurred approximately 2 weeks ago after a fall. She states she is out of her pain medication. She states she was taking MS Contin. The skin automated prescription system report was reviewed showing the patient to proceed Gustine just 4 days ago 60 tablets. She states is are not helping with her pain. She states she's taken stronger things in the past and these do not work. Patient denies any new injury or trauma. She has been feeling nauseated. Denies any other complaints. Patient denies any recent fever, chills, shortness of breath, chest pain, back pain, abdominal pain, numbness or tingling, dysuria or hematuria, constipation or diarrhea, headaches or visual changes, or any other complaints. - Related Data Home Medications Medication Instructions Recorded Confirmed DULoxetine HCL [Cymbalta] 60 mg PO HS 02/27/14 08/21/17 Omeprazole 40 mg PO QAM 02/27/14 08/21/17 Rosuvastatin [Crestor] 10 mg PO HS 02/27/14 08/21/17 Ergocalciferol [Vitamin D2 50,000 unit PO FR 06/10/15 08/21/17 (DRISDOL)] cloNIDine HCL [Catapres] 0.1 mg PO DAILY 05/19/16 08/21/17 Previous Rx's Medication Instructions Recorded ALPRAZolam [Xanax] 0.25 mg PO BID PRN #30 05/26/17 Enoxaparin [Lovenox] 40 mg SQ DAILY #30 syr 05/26/17 HYDROmorphone [Dilaudid] 1 mg PO Q4HR PRN #30 tab 05/26/17 Losartan [Cozaar] 100 mg PO DAILY #30 tab 05/26/17 Morphine Sulfate ER [Ms Contin] 30 mg PO BID PRN #30 05/26/17 Sennosides-Docusate Sodium 1 each PO DAILY #30 tab 05/26/17 [Senokot-S] Ondansetron Odt [Zofran ODT] 4 mg PO Q8HR PRN #20 tab 09/04/17 Allergies Allergy/AdvReac Type Severity Reaction Status Date / Time nitrofurantoin AdvReac Abdominal Verified 09/04/17 10:41 [From Macrobid] Pain/Nausea/Vomiting NSAIDS (Non-Steroidal AdvReac Nausea & Verified 09/04/17 10:41 Anti-Inflamma Vomiting Review of Systems ROS Statement: Those systems with pertinent positive or pertinent negative responses have been documented in the HPI. ROS Other: All systems not noted in ROS Statement are negative. Past Medical History Past Medical History: Asthma, Fibromyalgia, Hyperlipidemia, Hypertension, Memory Impairment, Musculoskeletal Disorder, Osteoarthritis (OA), Seizure Disorder Additional Past Medical History / Comment(s): BACK PAIN, SHORT TERM MEMORY LOSS , history of lumbar spine surgery 2 at outside institutions. History of multiple treatments and procedures with interventional pain management chronically. She is on chronic high-dose oral pain medications including morphine and Percocet. with pain management. History of Any Multi-Drug Resistant Organisms: None Reported Past Surgical History: Adenoidectomy, Back Surgery, Breast Surgery, Joint Replacement, Orthopedic Surgery, Tonsillectomy Additional Past Surgical History / Comment(s): , LT HAND SURGERY, RT GANGLION CYST REMOVED, LEEP, COLONOSCOPY, EGD, MIGUEL A. CATARACT WITH LENS IMLANTS,RT BREAST BIOPSY, 2 BACK SURGERIES- ONE WAS A LAMINECTOMY, TOTAL LEFT KNEE Past Anesthesia/Blood Transfusion Reactions: No Reported Reaction Past Psychological History: No Psychological Hx Reported Smoking Status: Light tobacco smoker Past Alcohol Use History: None Reported Past Drug Use History: None Reported - Past Family History Brother(s) Family Medical History: Cancer Additional Family Medical History / Comment(s): PANCREATITIS Mother Family Medical History: Hypertension, Memory Impairment Additional Family Medical History / Comment(s): ALZHEIMER'S Father Family Medical History: Coronary Artery Disease (CAD) Additional Family Medical History / Comment(s): HEART PROBLEMS-HAD QUAD- CABG, ALCOHOLISM General Exam - General Exam Comments Initial Comments: General: The patient is awake and alert, in no distress, and does not appear acutely ill. Eye: Pupils are equal, round and reactive to light, extra-ocular movements are intact. No nystagmus. There is normal conjunctiva bilaterally. No signs of icterus. Ears, nose, mouth and throat: There are moist mucous membranes and no oral lesions. Neck: The neck is supple, there is no tenderness or JVD. Cardiovascular: There is a regular rate and rhythm. No murmur, rub or gallop is appreciated. Respiratory: Lungs are clear to auscultation, respirations are non-labored, breath sounds are equal. No wheezes, stridor, rales, or rhonchi. Gastrointestinal: Soft, non-distended, non-tender abdomen without masses or organomegaly noted. There is no rebound or guarding present. No CVA tenderness. Bowel sounds are unremarkable. Musculoskeletal: Normal ROM, no tenderness. Strength 5/5. Sensation intact. Pulses equal bilaterally 2+. Neurological: A&O x 3. CN II-XII intact, There are no obvious motor or sensory deficits. Coordination appears grossly intact. Speech is normal. Skin: Skin is warm and dry and no rashes or lesions are noted. Psychiatric: Cooperative, appropriate mood & affect, normal judgment. Limitations: no limitations Course Vital Signs 09/04/17 10:38 Temperature 97.6 F Pulse Rate 64 Respiratory 20 Rate Blood Pressure 181/81 O2 Sat by Pulse 99 Oximetry Medical Decision Making - Medical Decision Making The skin automated prescription system report was reviewed showing the patient received Gustine on 08/31/2017 at total 60 tabs. Advised patient that we would not fill any pain medications here in the emergency room. Advised her that we can give her nausea medicine for her symptoms. Advised she needs to follow family doctor or her pain specialist for further meds. Disposition Clinical Impression: Medication refill, Drug-seeking behavior Disposition: HOME SELF-CARE Condition: Stable Instructions: Medicine Refill (ED) Additional Instructions: Please use medication as discussed. Please follow-up with family doctor in the next 2 days of symptoms have not improved. Please return to emergency room if the symptoms increase or worsen or for any other concerns. Prescriptions: Ondansetron Odt [Zofran ODT] 4 mg PO Q8HR PRN #20 tab PRN Reason: Nausea Referrals: Jaylan Garcia MD [Primary Care Provider] - 1-2 days Time of Disposition: 11:05
[2017-09-04 11:19] VITALS: BP 180/87; PULSE 72; TEMP 97.4
== END 2017-09-04 11:19 | disposition home or self-care (01) ==
LOC: EC 10:33
DX: Z76.5 Malingerer [conscious simulation] (principal); Z76.0 Encounter for issue of repeat prescription; E78.5 Hyperlipidemia, unspecified; I10 Essential (primary) hypertension; M19.90 Unspecified osteoarthritis, unspecified site; F17.200 Nicotine dependence, unspecified, uncomplicated; Z88.1 Allergy status to other antibiotic agents; Z88.6 Allergy status to analgesic agent; Z79.899 Other long term (current) drug therapy
CPT/HCPCS: 99284; S0119

== ENCOUNTER 2017-09-04 19:48 | Emergency (ER) | payer MEDICARE, OTHER ==
[2017-09-04] MEDS ORDERED: MORPHINE SULFATE 10 MG/ML SYRINGE IV STA (19:53)
[2017-09-04] MEDS ORDERED: LORazepam 2 MG/ML INJ IV STA (19:53)
[2017-09-04] MEDS ORDERED: ONDANSETRON 4 MG/2 ML VIAL IVP STA (19:53)
[2017-09-04] MEDS ORDERED: SODIUM CHLORIDE 0.9% 1,000 ML IV STA ×2 (19:53)
[2017-09-04 20:12] LABS: Basophils % (A) 0 %; CH 30.3; CHCM 32.5; Eosinophils # (A) 0.1 k/uL (0-0.7); Eosinophils % (A) 2 %; HCT 42.5 % (34.0-46.0); HDW 2.33; HGB 13.8 gm/dL (11.4-16.0); Luc # (Auto) 0.03; Luc % (Auto) 0; Lymphocytes # (A) 0.8 k/uL (1.0-4.8); Lymphocytes % (A) 10 %; MCH 30.4 pg (25.0-35.0); MCHC 32.5 g/dL (31.0-37.0); MCV 93.6 fL (80.0-100.0); Monocytes # (A) 0.3 k/uL (0-1.0); Monocytes % (A) 3 %; Neutrophils # (A) 6.6 k/uL (1.3-7.7); Neutrophils % (A) 85 %; RBC 4.54 m/uL (3.80-5.40); RDW 15.8 % (11.5-15.5); WBC 7.8 k/uL (3.8-10.6); WBC (Perox) 8.28
[2017-09-04 20:20] LABS: ALT 26 U/L (9-52); AST 20 U/L (14-36); Alkaline Phosphatase 95 U/L (38-126); Anion Gap 12 mmol/L; Blood Urea Nitrogen 13 mg/dL (7-17); Carbon Dioxide 25 mmol/L (22-30); Chloride 105 mmol/L (98-107); Glucose 159 mg/dL (74-99); Magnesium 2.2 mg/dL (1.6-2.3); Non-African American GFR(MDRD) >60 (>60 ml/min/1.73 sqM); Phosphorus 3.8 mg/dL (2.5-4.5); Potassium 4.1 mmol/L (3.5-5.1); Sodium 142 mmol/L (137-145); Total Bilirubin 0.6 mg/dL (0.2-1.3); Total Protein 7.1 g/dL (6.3-8.2)
[2017-09-04 20:23] LABS: INR 1.1 (<1.2); Partial Thromboplastin Time 22.9 sec (22.0-30.0); Prothrombin Time 10.9 sec (9.0-12.0)
--- NOTE | 2017-09-04 20:28 | ED ---
General Adult HPI - General Chief complaint: Nausea/Vomiting/Diarrhea Stated complaint: Hypertension/Nausea/Vomiting Time Seen by Provider: 09/04/17 19:51 Source: patient, EMS, RN notes reviewed, old records reviewed Mode of arrival: EMS Limitations: no limitations - History of Present Illness Initial comments: This is a 8-year-old female to the ER for evaluation. This patient since they for evaluation regards to weakness, pain, chest pain arm pain shoulder pain and back pain. Patient has significant medical history of heart disease and chronic pain issues. Patient's was seen here in the ER earlier this afternoon with for pain issue. Patient states her pain has progressed she's been nausea and vomiting all day. No fevers no significant shortness of breath, she does also deny diarrhea. - Related Data Home Medications Medication Instructions Recorded Confirmed DULoxetine HCL [Cymbalta] 60 mg PO HS 02/27/14 08/21/17 Omeprazole 40 mg PO QAM 02/27/14 08/21/17 Rosuvastatin [Crestor] 10 mg PO HS 02/27/14 08/21/17 Ergocalciferol [Vitamin D2 50,000 unit PO FR 06/10/15 08/21/17 (DRISDOL)] cloNIDine HCL [Catapres] 0.1 mg PO DAILY 05/19/16 08/21/17 Previous Rx's Medication Instructions Recorded ALPRAZolam [Xanax] 0.25 mg PO BID PRN #30 05/26/17 Enoxaparin [Lovenox] 40 mg SQ DAILY #30 syr 05/26/17 HYDROmorphone [Dilaudid] 1 mg PO Q4HR PRN #30 tab 05/26/17 Losartan [Cozaar] 100 mg PO DAILY #30 tab 05/26/17 Morphine Sulfate ER [Ms Contin] 30 mg PO BID PRN #30 05/26/17 Sennosides-Docusate Sodium 1 each PO DAILY #30 tab 05/26/17 [Senokot-S] Ondansetron Odt [Zofran ODT] 4 mg PO Q8HR PRN #20 tab 09/04/17 Allergies Allergy/AdvReac Type Severity Reaction Status Date / Time nitrofurantoin AdvReac Abdominal Verified 09/04/17 19:57 [From Macrobid] Pain/Nausea/Vomiting NSAIDS (Non-Steroidal AdvReac Nausea & Verified 09/04/17 19:57 Anti-Inflamma Vomiting Review of Systems ROS Statement: Those systems with pertinent positive or pertinent negative responses have been documented in the HPI. ROS Other: All systems not noted in ROS Statement are negative. Past Medical History Past Medical History: Asthma, Fibromyalgia, Hyperlipidemia, Hypertension, Memory Impairment, Musculoskeletal Disorder, Osteoarthritis (OA), Seizure Disorder Additional Past Medical History / Comment(s): BACK PAIN, SHORT TERM MEMORY LOSS , history of lumbar spine surgery 2 at outside institutions. History of multiple treatments and procedures with interventional pain management chronically. She is on chronic high-dose oral pain medications including morphine and Percocet. with pain management. History of Any Multi-Drug Resistant Organisms: None Reported Past Surgical History: Adenoidectomy, Back Surgery, Breast Surgery, Joint Replacement, Orthopedic Surgery, Tonsillectomy Additional Past Surgical History / Comment(s): , LT HAND SURGERY, RT GANGLION CYST REMOVED, LEEP, COLONOSCOPY, EGD, MIGUEL A. CATARACT WITH LENS IMLANTS,RT BREAST BIOPSY, 2 BACK SURGERIES- ONE WAS A LAMINECTOMY, TOTAL LEFT KNEE Past Anesthesia/Blood Transfusion Reactions: No Reported Reaction Past Psychological History: No Psychological Hx Reported Smoking Status: Light tobacco smoker Past Alcohol Use History: None Reported Past Drug Use History: None Reported - Past Family History Brother(s) Family Medical History: Cancer Additional Family Medical History / Comment(s): PANCREATITIS Mother Family Medical History: Hypertension, Memory Impairment Additional Family Medical History / Comment(s): ALZHEIMER'S Father Family Medical History: Coronary Artery Disease (CAD) Additional Family Medical History / Comment(s): HEART PROBLEMS-HAD QUAD- CABG, ALCOHOLISM General Exam Limitations: no limitations General appearance: alert, in no apparent distress, anxious Head exam: Present: atraumatic, normocephalic, normal inspection Eye exam: Present: normal appearance, PERRL, EOMI. Absent: scleral icterus, conjunctival injection, periorbital swelling ENT exam: Present: normal exam, mucous membranes moist Neck exam: Present: normal inspection. Absent: tenderness, meningismus, lymphadenopathy Respiratory exam: Present: normal lung sounds bilaterally. Absent: respiratory distress, wheezes, rales, rhonchi, stridor Cardiovascular Exam: Present: regular rate, normal rhythm, normal heart sounds. Absent: systolic murmur, diastolic murmur, rubs, gallop, clicks GI/Abdominal exam: Present: soft, normal bowel sounds. Absent: distended, tenderness, guarding, rebound, rigid Extremities exam: Present: normal inspection, full ROM, normal capillary refill. Absent: tenderness, pedal edema, joint swelling, calf tenderness Back exam: Present: normal inspection Neurological exam: Present: alert, oriented X3, CN II-XII intact Psychiatric exam: Present: normal affect, normal mood Skin exam: Present: warm, dry, intact, normal color. Absent: rash Course Vital Signs 09/04/17 09/04/17 09/04/17 19:52 19:56 20:15 Temperature 98.2 F Pulse Rate 86 75 Respiratory 18 20 Rate Blood Pressure 185/133 199/94 O2 Sat by Pulse 98 Oximetry 09/04/17 20:38 Temperature Pulse Rate 71 Respiratory 20 Rate Blood Pressure 167/91 O2 Sat by Pulse Oximetry EKG Findings - EKG Comments: EKG Findings:: EKG shows sinus rhythm rate of 81, NC 124, QRS 80, QTC 5:15, PVCs. Repeat. EKG shows no signs are noted is a 55, NC 126, QRS 90, QTC 44, no PVCs Medical Decision Making - Medical Decision Making 62 female the ER for evaluation regarding pain, multiple issues of pain. Patient is medically pain control at this time, initial concerns of tach or PVCs have been resolved. Patient elects lites are normal patient will be discharged home - Lab Data Result diagrams: 09/04/17 20:05 09/04/17 20:05 Lab Results 09/04/17 09/04/17 09/04/17 Range/Units 20:05 20:05 20:05 WBC 7.8 (3.8-10.6) k/uL RBC 4.54 (3.80-5.40) m/uL Hgb 13.8 (11.4-16.0) gm/dL Hct 42.5 (34.0-46.0) % MCV 93.6 (80.0-100.0) fL MCH 30.4 (25.0-35.0) pg MCHC 32.5 (31.0-37.0) g/dL RDW 15.8 H (11.5-15.5) % Plt Count 347 (150-450) k/uL Neutrophils % 85 % Lymphocytes % 10 % Monocytes % 3 % Eosinophils % 2 % Basophils % 0 % Neutrophils # 6.6 (1.3-7.7) k/uL Lymphocytes # 0.8 L (1.0-4.8) k/uL Monocytes # 0.3 (0-1.0) k/uL Eosinophils # 0.1 (0-0.7) k/uL Basophils # 0.0 (0-0.2) k/uL PT (9.0-12.0) sec INR (<1.2) APTT (22.0-30.0) sec Sodium 142 (137-145) mmol/L Potassium 4.1 (3.5-5.1) mmol/L Chloride 105 (98-107) mmol/L Carbon Dioxide 25 (22-30) mmol/L Anion Gap 12 mmol/L BUN 13 (7-17) mg/dL Creatinine 0.50 L (0.52-1.04) mg/dL Est GFR (MDRD) Af Amer >60 (>60 ml/min/1.73 sqM) Est GFR (MDRD) Non-Af >60 (>60 ml/min/1.73 sqM) Glucose 159 H (74-99) mg/dL Calcium 10.0 (8.4-10.2) mg/dL Phosphorus 3.8 (2.5-4.5) mg/dL Magnesium 2.2 (1.6-2.3) mg/dL Total Bilirubin 0.6 (0.2-1.3) mg/dL AST 20 (14-36) U/L ALT 26 (9-52) U/L Alkaline Phosphatase 95 (38-126) U/L Total Creatine Kinase 38 (30-135) U/L CK-MB (CK-2) 0.6 (0.0-2.4) ng/mL CK-MB (CK-2) Rel Index 1.6 Troponin I <0.012 (0.000-0.034) ng/mL Total Protein 7.1 (6.3-8.2) g/dL Albumin 4.4 (3.5-5.0) g/dL 09/04/17 Range/Units 20:05 WBC (3.8-10.6) k/uL RBC (3.80-5.40) m/uL Hgb (11.4-16.0) gm/dL Hct (34.0-46.0) % MCV (80.0-100.0) fL MCH (25.0-35.0) pg MCHC (31.0-37.0) g/dL RDW (11.5-15.5) % Plt Count (150-450) k/uL Neutrophils % % Lymphocytes % % Monocytes % % Eosinophils % % Basophils % % Neutrophils # (1.3-7.7) k/uL Lymphocytes # (1.0-4.8) k/uL Monocytes # (0-1.0) k/uL Eosinophils # (0-0.7) k/uL Basophils # (0-0.2) k/uL PT 10.9 (9.0-12.0) sec INR 1.1 (<1.2) APTT 22.9 (22.0-30.0) sec Sodium (137-145) mmol/L Potassium (3.5-5.1) mmol/L Chloride (98-107) mmol/L Carbon Dioxide (22-30) mmol/L Anion Gap mmol/L BUN (7-17) mg/dL Creatinine (0.52-1.04) mg/dL Est GFR (MDRD) Af Amer (>60 ml/min/1.73 sqM) Est GFR (MDRD) Non-Af (>60 ml/min/1.73 sqM) Glucose (74-99) mg/dL Calcium (8.4-10.2) mg/dL Phosphorus (2.5-4.5) mg/dL Magnesium (1.6-2.3) mg/dL Total Bilirubin (0.2-1.3) mg/dL AST (14-36) U/L ALT (9-52) U/L Alkaline Phosphatase (38-126) U/L Total Creatine Kinase (30-135) U/L CK-MB (CK-2) (0.0-2.4) ng/mL CK-MB (CK-2) Rel Index Troponin I (0.000-0.034) ng/mL Total Protein (6.3-8.2) g/dL Albumin (3.5-5.0) g/dL Disposition Clinical Impression: Chronic pain, PVC (premature ventricular contraction) Disposition: HOME SELF-CARE Condition: Good Instructions: Chronic Pain (ED) Referrals: Jaylan Garcia MD [Primary Care Provider] - 1-2 days
[2017-09-04 20:35] LABS: Creatine Kinase 38 U/L (30-135)
[2017-09-04 20:48] LABS: Creatine Kinase MB 0.6 ng/mL (0.0-2.4); Troponin I <0.012 ng/mL (0.000-0.034)
[2017-09-04] MEDS ORDERED: HYDROmorphone 1 MG/ML 1 ML SYRINGE IVP STA (21:03)
[2017-09-04 22:21] VITALS: BP 127/65; PULSE 86; RESP 18; TEMP 98.8
== END 2017-09-04 22:18 | disposition home or self-care (01) ==
LOC: EC 19:48
DX: I49.3 Ventricular premature depolarization (principal); G89.29 Other chronic pain; M79.603 Pain in arm, unspecified; M25.519 Pain in unspecified shoulder; M54.9 Dorsalgia, unspecified; R53.1 Weakness; R11.2 Nausea with vomiting, unspecified; E78.5 Hyperlipidemia, unspecified; I10 Essential (primary) hypertension; F17.200 Nicotine dependence, unspecified, uncomplicated; Z79.891 Long term (current) use of opiate analgesic; Z79.899 Other long term (current) drug therapy; Z98.890 Other specified postprocedural states; Z88.1 Allergy status to other antibiotic agents; Z88.6 Allergy status to analgesic agent; Z82.49 Family history of ischemic heart disease and other diseases of the circulatory system
CPT/HCPCS: 96375 ×4; 96361 ×3; 96374 ×2; 99285 ×2; 99284; 36415; 93005; 80053; 82550; 82553; 83735; 84100; 84484; 85025; 85610; 85730; J2060; J2270; J2405; J1170; S0119

== ENCOUNTER 2017-09-05 22:12 | Emergency (ER) | payer MEDICARE, OTHER ==
[2017-09-05 22:17] VITALS: RESP 19
[2017-09-05] MEDS ORDERED: SODIUM CHLORIDE 0.9% 500 ML IV STA (23:10)
[2017-09-05] MEDS ORDERED: diphenhydrAMINE 50 MG/ML 1 ML VIAL IVP STA (23:10)
[2017-09-05] MEDS ORDERED: HYDROmorphone 1 MG/ML 1 ML SYRINGE IVP STA (23:10)
[2017-09-05] MEDS ORDERED: METOCLOPRAMIDE 5 MG/ML 2 ML VIAL IVP STA (23:10)
[2017-09-05] MEDS ORDERED: RX INFO: IV CONTRAST WAS GIVEN 1 EACH MISC MISCELLANE PRN (23:10)
[2017-09-05] MEDS ORDERED: SODIUM CHLORIDE 0.9% 1,000 ML IV STA (23:10)
--- NOTE | 2017-09-05 23:13 | ED ---
General Adult HPI - General Chief complaint: Abdominal Pain Stated complaint: NVD Time Seen by Provider: 09/05/17 22:57 Source: patient, EMS, RN notes reviewed Mode of arrival: EMS Limitations: no limitations - History of Present Illness Initial comments: 62-year-old female presents for evaluation of abdominal pain nausea vomiting. She was seen in the emergency department yesterday with similar complaint. She has had persistent nausea throughout the day with several episodes of vomiting. Patient normally takes MS Contin for chronic pain, she has been out of this medication for the past 3 days. Patient denies chest pain or shortness of breath. Abdominal pain is generalized, worse on the right side of her abdomen. She has been having loose stools. Patient also complains of fever and chills. - Related Data Home Medications Medication Instructions Recorded Confirmed DULoxetine HCL [Cymbalta] 60 mg PO HS 02/27/14 09/05/17 Omeprazole 40 mg PO QAM 02/27/14 09/05/17 Rosuvastatin [Crestor] 10 mg PO HS 02/27/14 09/05/17 Ergocalciferol [Vitamin D2 50,000 unit PO FR 06/10/15 09/05/17 (DRISDOL)] cloNIDine HCL [Catapres] 0.1 mg PO DAILY 05/19/16 09/05/17 Sennosides-Docusate Sodium 1 tab PO DAILY 09/05/17 09/05/17 [Senokot-S] Previous Rx's Medication Instructions Recorded ALPRAZolam [Xanax] 0.25 mg PO BID PRN #30 05/26/17 Enoxaparin [Lovenox] 40 mg SQ DAILY #30 syr 05/26/17 HYDROmorphone [Dilaudid] 1 mg PO Q4HR PRN #30 tab 05/26/17 Losartan [Cozaar] 100 mg PO DAILY #30 tab 05/26/17 Morphine Sulfate ER [Ms Contin] 30 mg PO BID PRN #30 05/26/17 Ondansetron Odt [Zofran ODT] 4 mg PO Q8HR PRN #20 tab 09/04/17 Allergies Allergy/AdvReac Type Severity Reaction Status Date / Time nitrofurantoin AdvReac Abdominal Verified 09/05/17 22:44 [From Macrobid] Pain/Nausea/Vomiting NSAIDS (Non-Steroidal AdvReac Nausea & Verified 09/05/17 22:44 Anti-Inflamma Vomiting Review of Systems ROS Statement: Those systems with pertinent positive or pertinent negative responses have been documented in the HPI. ROS Other: All systems not noted in ROS Statement are negative. Past Medical History Past Medical History: Asthma, Fibromyalgia, Hyperlipidemia, Hypertension, Memory Impairment, Musculoskeletal Disorder, Osteoarthritis (OA), Seizure Disorder Additional Past Medical History / Comment(s): BACK PAIN, SHORT TERM MEMORY LOSS , history of lumbar spine surgery 2 at outside institutions. History of multiple treatments and procedures with interventional pain management chronically. She is on chronic high-dose oral pain medications including morphine and Percocet. with pain management. History of Any Multi-Drug Resistant Organisms: None Reported Past Surgical History: Adenoidectomy, Back Surgery, Breast Surgery, Joint Replacement, Orthopedic Surgery, Tonsillectomy Additional Past Surgical History / Comment(s): , LT HAND SURGERY, RT GANGLION CYST REMOVED, LEEP, COLONOSCOPY, EGD, MIGUEL A. CATARACT WITH LENS IMLANTS,RT BREAST BIOPSY, 2 BACK SURGERIES- ONE WAS A LAMINECTOMY, TOTAL LEFT KNEE Past Anesthesia/Blood Transfusion Reactions: No Reported Reaction Past Psychological History: No Psychological Hx Reported Smoking Status: Light tobacco smoker Past Alcohol Use History: None Reported Past Drug Use History: None Reported - Past Family History Brother(s) Family Medical History: Cancer Additional Family Medical History / Comment(s): PANCREATITIS Mother Family Medical History: Hypertension, Memory Impairment Additional Family Medical History / Comment(s): ALZHEIMER'S Father Family Medical History: Coronary Artery Disease (CAD) Additional Family Medical History / Comment(s): HEART PROBLEMS-HAD QUAD- CABG, ALCOHOLISM General Exam Limitations: no limitations General appearance: alert, in distress Head exam: Present: atraumatic, normocephalic Eye exam: Present: normal appearance, PERRL ENT exam: Present: mucous membranes dry Neck exam: Present: normal inspection. Absent: tenderness, meningismus Respiratory exam: Present: normal lung sounds bilaterally. Absent: respiratory distress Cardiovascular Exam: Present: regular rate, normal rhythm GI/Abdominal exam: Present: soft, tenderness (Generalized tenderness to palpation, no rebound or guarding). Absent: distended Extremities exam: Present: normal inspection, normal capillary refill, other ( Tenderness over the right humerus with old ecchymosis). Absent: pedal edema Neurological exam: Present: alert, oriented X3 Psychiatric exam: Present: normal affect, normal mood Skin exam: Present: warm, dry, intact Course Vital Signs 09/05/17 09/06/17 22:14 01:19 Temperature 100.7 F H 99.7 F H Pulse Rate 67 Respiratory 19 Rate Blood Pressure 169/72 O2 Sat by Pulse 97 Oximetry - Reevaluation(s) Reevaluation #1: 09/06/17 02:32 On reevaluation, patient is feeling much better. Medical Decision Making - Medical Decision Making 62-year-old female presenting with nausea vomiting abdominal pain. Patient admits to running out of her opiate pain medication approximately [address] is obtained, negative for acute intra-abdominal process. Laboratory studies reveal normal white blood cell count, stable hemoglobin, normal I lites. Urinalysis is negative for signs of infection. On reevaluation patient is feeling much better. She has an appointment with her pain specialist tomorrow for a refill of her medications. She will maintain this appointment. Diagnosis: Abdominal pain, opiate withdrawal - Lab Data Result diagrams: 09/06/17 00:06 09/06/17 00:06 Lab Results 09/06/17 09/06/17 09/06/17 Range/Units 00:06 00:06 00:06 WBC 9.0 (3.8-10.6) k/uL RBC 4.27 (3.80-5.40) m/uL Hgb 13.1 (11.4-16.0) gm/dL Hct 40.2 (34.0-46.0) % MCV 94.1 (80.0-100.0) fL MCH 30.6 (25.0-35.0) pg MCHC 32.6 (31.0-37.0) g/dL RDW 14.7 (11.5-15.5) % Plt Count 492 H (150-450) k/uL Neutrophils % 68 % Lymphocytes % 22 % Monocytes % 7 % Eosinophils % 1 % Basophils % 0 % Neutrophils # 6.1 (1.3-7.7) k/uL Lymphocytes # 2.0 (1.0-4.8) k/uL Monocytes # 0.7 (0-1.0) k/uL Eosinophils # 0.1 (0-0.7) k/uL Basophils # 0.0 (0-0.2) k/uL Manual Slide Review Performed PT (9.0-12.0) sec INR (<1.2) APTT (22.0-30.0) sec Sodium 142 (137-145) mmol/L Potassium 3.4 L (3.5-5.1) mmol/L Chloride 103 (98-107) mmol/L Carbon Dioxide 27 (22-30) mmol/L Anion Gap 12 mmol/L BUN 14 (7-17) mg/dL Creatinine 0.50 L (0.52-1.04) mg/dL Est GFR (MDRD) Af Amer >60 (>60 ml/min/1.73 sqM) Est GFR (MDRD) Non-Af >60 (>60 ml/min/1.73 sqM) Glucose 109 H (74-99) mg/dL Plasma Lactic Acid Boni (0.7-2.0) mmol/L Calcium 9.9 (8.4-10.2) mg/dL Total Bilirubin 0.6 (0.2-1.3) mg/dL AST 17 (14-36) U/L ALT 28 (9-52) U/L Alkaline Phosphatase 93 (38-126) U/L Total Creatine Kinase 47 (30-135) U/L CK-MB (CK-2) 0.7 (0.0-2.4) ng/mL CK-MB (CK-2) Rel Index 1.5 Troponin I 0.016 (0.000-0.034) ng/mL Total Protein 6.7 (6.3-8.2) g/dL Albumin 4.2 (3.5-5.0) g/dL Amylase 51 (30-110) U/L Lipase 42 (23-300) U/L Urine Color Urine Appearance (Clear) Urine pH (5.0-8.0) Ur Specific Celestine (1.001-1.035) Urine Protein (Negative) Urine Glucose (UA) (Negative) Urine Ketones (Negative) Urine Blood (Negative) Urine Nitrite (Negative) Urine Bilirubin (Negative) Urine Urobilinogen (<2.0) mg/dL Ur Leukocyte Esterase (Negative) Urine RBC (0-5) /hpf Ur Squamous Epith Cells (0-4) /hpf Amorphous Sediment (None) /hpf Urine Mucus (None) /hpf 09/06/17 09/06/17 09/06/17 Range/Units 00:06 00:06 02:00 WBC (3.8-10.6) k/uL RBC (3.80-5.40) m/uL Hgb (11.4-16.0) gm/dL Hct (34.0-46.0) % MCV (80.0-100.0) fL MCH (25.0-35.0) pg MCHC (31.0-37.0) g/dL RDW (11.5-15.5) % Plt Count (150-450) k/uL Neutrophils % % Lymphocytes % % Monocytes % % Eosinophils % % Basophils % % Neutrophils # (1.3-7.7) k/uL Lymphocytes # (1.0-4.8) k/uL Monocytes # (0-1.0) k/uL Eosinophils # (0-0.7) k/uL Basophils # (0-0.2) k/uL Manual Slide Review PT 10.9 (9.0-12.0) sec INR 1.1 (<1.2) APTT 20.4 L (22.0-30.0) sec Sodium (137-145) mmol/L Potassium (3.5-5.1) mmol/L Chloride (98-107) mmol/L Carbon Dioxide (22-30) mmol/L Anion Gap mmol/L BUN (7-17) mg/dL Creatinine (0.52-1.04) mg/dL Est GFR (MDRD) Af Amer (>60 ml/min/1.73 sqM) Est GFR (MDRD) Non-Af (>60 ml/min/1.73 sqM) Glucose (74-99) mg/dL Plasma Lactic Acid Boni 1.0 (0.7-2.0) mmol/L Calcium (8.4-10.2) mg/dL Total Bilirubin (0.2-1.3) mg/dL AST (14-36) U/L ALT (9-52) U/L Alkaline Phosphatase (38-126) U/L Total Creatine Kinase (30-135) U/L CK-MB (CK-2) (0.0-2.4) ng/mL CK-MB (CK-2) Rel Index Troponin I (0.000-0.034) ng/mL Total Protein (6.3-8.2) g/dL Albumin (3.5-5.0) g/dL Amylase (30-110) U/L Lipase (23-300) U/L Urine Color Yellow Urine Appearance Cloudy H (Clear) Urine pH 7.5 (5.0-8.0) Ur Specific Celestine >1.050 H (1.001-1.035) Urine Protein 1+ H (Negative) Urine Glucose (UA) Negative (Negative) Urine Ketones 2+ H (Negative) Urine Blood Negative (Negative) Urine Nitrite Negative (Negative) Urine Bilirubin Negative (Negative) Urine Urobilinogen <2.0 (<2.0) mg/dL Ur Leukocyte Esterase Negative (Negative) Urine RBC 1 (0-5) /hpf Ur Squamous Epith Cells 1 (0-4) /hpf Amorphous Sediment Occasional H (None) /hpf Urine Mucus Rare H (None) /hpf Disposition Clinical Impression: Abdominal pain, Opiate withdrawal Disposition: HOME SELF-CARE Condition: Good Instructions: Abdominal Pain (ED), Acute Nausea and Vomiting (ED) Referrals: Jaylan Garcia MD [Primary Care Provider] - 1-2 days Time of Disposition: 02:34
[2017-09-06 00:26] LABS: ALT 28 U/L (9-52); AST 17 U/L (14-36); Alkaline Phosphatase 93 U/L (38-126); Amylase 51 U/L (30-110); Anion Gap 12 mmol/L; Blood Urea Nitrogen 14 mg/dL (7-17); Calcium 9.9 mg/dL (8.4-10.2); Carbon Dioxide 27 mmol/L (22-30); Chloride 103 mmol/L (98-107); Glucose 109 mg/dL (74-99); Non-African American GFR(MDRD) >60 (>60 ml/min/1.73 sqM); Potassium 3.4 mmol/L (3.5-5.1); Sodium 142 mmol/L (137-145); Total Bilirubin 0.6 mg/dL (0.2-1.3); Total Protein 6.7 g/dL (6.3-8.2)
[2017-09-06 00:27] LABS: Basophils % (A) 0 %; CH 31.1; CHCM 33.2; Eosinophils # (A) 0.1 k/uL (0-0.7); Eosinophils % (A) 1 %; HCT 40.2 % (34.0-46.0); HDW 2.43; HGB 13.1 gm/dL (11.4-16.0); Luc # (Auto) 0.06; Luc % (Auto) 1; Lymphocytes % (A) 22 %; MCH 30.6 pg (25.0-35.0); MCHC 32.6 g/dL (31.0-37.0); MCV 94.1 fL (80.0-100.0); Mean Platelet Volume 7.6; Monocytes # (A) 0.7 k/uL (0-1.0); Monocytes % (A) 7 %; Neutrophils # (A) 6.1 k/uL (1.3-7.7); Neutrophils % (A) 68 %; RBC 4.27 m/uL (3.80-5.40); RDW 14.7 % (11.5-15.5); WBC (Perox) 9.33
[2017-09-06 00:34] LABS: INR 1.1 (<1.2); Prothrombin Time 10.9 sec (9.0-12.0)
[2017-09-06 00:44] LABS: Partial Thromboplastin Time 20.4 sec (22.0-30.0)
[2017-09-06 00:49] LABS: Creatine Kinase MB 0.7 ng/mL (0.0-2.4); Troponin I 0.016 ng/mL (0.000-0.034)
[2017-09-06 01:03] LABS: Manual Review Performed
--- NOTE | 2017-09-06 01:09 | CT ---
EXAM: CT Abdomen and Pelvis With Intravenous Contrast CLINICAL HISTORY: Reason: abdominal pain TECHNIQUE: Axial computed tomography images of the abdomen and pelvis with intravenous contrast. DLP is 1084.00 mGy-cm. This CT exam was performed using one or more of the following dose reduction techniques: automated exposure control, adjustment of the mA and/or kV according to patient size, and/or use of iterative reconstruction technique. COMPARISON: 01/08/16 FINDINGS: Lower thorax: No acute findings. ABDOMEN: Liver: Unremarkable. No mass. Gallbladder and bile ducts: Unremarkable. No calcified stones. No ductal dilation. Pancreas: Unremarkable. No mass. No ductal dilation. Spleen: Unremarkable. No splenomegaly. Adrenals: There is focal thickening of the left adrenal gland. Kidneys and ureters: There is a 1.3 cm complex lesion in the lower pole of the right kidney. No hydronephrosis. Stomach and bowel: Unremarkable. No obstruction. No mucosal thickening. Appendix: Appendix is normal. PELVIS: Bladder: Unremarkable. No mass. Reproductive: Unremarkable as visualized. ABDOMEN and PELVIS: Intraperitoneal space: Unremarkable. No free air. No significant fluid collection. Bones/joints: Lumbosacral fusion hardware noted at L5-S1 which appears intact and well seated. Limited evaluation in the right hemipelvis due to significant metal streak artifact from right hip arthroplasty. No acute fracture. No dislocation. Soft tissues: Unremarkable. Vasculature: Unremarkable. No abdominal aortic aneurysm. Lymph nodes: Unremarkable. No enlarged lymph nodes. IMPRESSION: 1. No acute intra-abdominal or intrapelvic process. 2. Complex cystic lesion in the lower pole of the right kidney measuring 1.3 cm. This may be further evaluated via nonemergent CT with renal mass protocol. 3. Questionable thickening of the left adrenal gland. This may also be evaluated with nonemergent CT with adrenal mass protocol. Correlation with adrenal function tests may also be helpful.
[2017-09-06] MEDS ORDERED: HYDROmorphone 1 MG/ML 1 ML SYRINGE IVP STA (01:27)
[2017-09-06] MEDS ORDERED: POTASSIUM CHLORIDE ER 20 MEQ TAB.ER PO STA (01:28)
[2017-09-06 02:17] LABS: Amorphous Sediment,Urine Occasional /hpf; Appearance,Urine Cloudy (Clear); Bilirubin,Urine Negative (Negative); Glucose,Urine (UA) Negative (Negative); Ketones,Urine 2+ (Negative); Leukocyte Esterase,Urine Negative (Negative); Mucus,Urine Rare /hpf; Nitrite,Urine Negative (Negative); PH, Urine 7.5 (5.0-8.0); Particle Count 15193; Protein,Urine 1+ (Negative); RBC,Urine 1 /hpf (0-5); Squamous Epithelial Cell,Urine 1 /hpf (0-4); UA Billing (MACRO vs. MICRO) MICRO; Urobilinogen,Urine <2.0 mg/dL (<2.0)
[2017-09-06 02:18] LABS: Specific Gravity,Urine >1.050 (1.001-1.035)
[2017-09-06 02:36] VITALS: BP 159/70; PULSE 65; TEMP 99.2
== END 2017-09-06 02:49 | disposition home or self-care (01) ==
LOC: EC 22:12
DX: R10.9 Unspecified abdominal pain (principal); F11.23 Opioid dependence with withdrawal; R11.2 Nausea with vomiting, unspecified; R19.5 Other fecal abnormalities; M79.7 Fibromyalgia; E78.5 Hyperlipidemia, unspecified; I10 Essential (primary) hypertension; M19.90 Unspecified osteoarthritis, unspecified site; G40.909 Epilepsy, unspecified, not intractable, without status epilepticus; F17.200 Nicotine dependence, unspecified, uncomplicated; Z79.899 Other long term (current) drug therapy; Z88.1 Allergy status to other antibiotic agents; Z88.6 Allergy status to analgesic agent
CPT/HCPCS: 36415; 80053; 82150; 82550; 82553; 83605; 83690; 84484; 85025; 85610; 85730; 81001; 87086; 74177; 99285; 96374; 96375 ×2; 96376; 96361 ×3; J1200; J2765; J1170; Q9967

== ENCOUNTER 2018-03-01 22:26 | Emergency (ER) | payer MEDICARE, OTHER ==
[2018-03-01 22:38] VITALS: TEMP 98.3
[2018-03-01] MEDS ORDERED: ONDANSETRON 4 MG/2 ML VIAL IM STA (22:59)
[2018-03-01] MEDS ORDERED: METHADONE 10 MG TAB PO STA (23:00)
[2018-03-01] MEDS ORDERED: ONDANSETRON 4 MG/2 ML VIAL IVP STA (23:54)
[2018-03-01] MEDS ORDERED: MORPHINE SULFATE 4 MG/ML SYRINGE IV STA (23:54)
--- NOTE | 2018-03-02 00:18 | XR ---
EXAMINATION TYPE: XR shoulder complete RT DATE OF EXAM: 03/01/2018 COMPARISON: 08/21/2017 HISTORY: Shoulder pain TECHNIQUE: 3 views FINDINGS: There is deformity of the humeral neck related to old fracture. I see no acute fracture. Th ere is no dislocation. Acromioclavicular joint is intact. IMPRESSION: Old healed humeral neck fracture. No change in position compared to old exam. No acute fr acture seen.
[2018-03-02 00:49] VITALS: PULSE 50
--- NOTE | 2018-03-02 00:54 | ED ---
Fall HPI - General Chief Complaint: Fall Stated Complaint: FALL Time Seen by Provider: 03/01/18 22:30 Source: patient, EMS Mode of arrival: EMS - History of Present Illness Initial Comments: 's patient is a 63-year-old woman brought by EMS to be evaluated after she had a fall. The patient states that she has been feeling unsteady. She was having nausea and vomiting. She did have a couple of falls at home due to being unsteady. The patient notes that she has been out of her pain medication and there may have been an element of withdrawal. She did strike her head but she states not very forcefully. No loss consciousness. Complaint: fall -: hour(s) Fall From: standing When Fall Occurred: 1-3 hours [facility] [employer] Fall Witnessed: no Place Fall Occurred: home Loss of Consciousness: none Prolonged Down Time?: no Symptoms Prior to Fall: dizziness Location: head Severity: mild Context: tripped/slipped, history of frequent falls Associated Symptoms: headache, lightheaded - Related Data Home Medications Medication Instructions Recorded Confirmed Acetaminophen with Codeine 1 tab PO BID PRN 03/01/18 03/01/18 [Tylenol w/codeine #4] Albuterol Inhaler [Ventolin Hfa 1 - 2 puff INHALATION RT-Q6H PRN 03/01/18 Inhaler] Clonidine (Unk. Dose) 1 tab PO DAILY 03/01/18 03/01/18 DULoxetine HCL [Cymbalta] 60 mg PO DAILY 03/01/18 03/01/18 Ergocalciferol [Vitamin D2] 50,000 unit PO Q7D 03/01/18 03/01/18 Losartan (Unk. Dose) 1 tab PO DAILY 03/01/18 03/01/18 Omeprazole 40 mg PO DAILY 03/01/18 03/01/18 Rosuvastatin [Crestor] 10 mg PO DAILY 03/01/18 03/01/18 levETIRAcetam [Keppra] 500 mg PO Q12HR 03/01/18 03/01/18 Previous Rx's Medication Instructions Recorded ALPRAZolam [Xanax] 0.25 mg PO BID PRN #30 05/26/17 Morphine Sulfate ER [Ms Contin] 30 mg PO BID PRN #30 05/26/17 Allergies Allergy/AdvReac Type Severity Reaction Status Date / Time nitrofurantoin AdvReac Abdominal Verified 03/01/18 22:44 [From Macrobid] Pain/Nausea/Vomiting NSAIDS (Non-Steroidal AdvReac Nausea & Verified 03/01/18 22:44 Anti-Inflamma Vomiting Review of Systems ROS Statement: Those systems with pertinent positive or pertinent negative responses have been documented in the HPI. ROS Other: All systems not noted in ROS Statement are negative. Constitutional: Reports: chills, weakness Respiratory: Denies: cough, dyspnea Cardiovascular: Denies: chest pain, palpitations Gastrointestinal: Reports: nausea, vomiting, diarrhea. Denies: abdominal pain, melena, hematochezia Genitourinary: Denies: dysuria, hematuria Musculoskeletal: Denies: back pain Neurological: Reports: headache. Denies: weakness, numbness Past Medical History Past Medical History: Asthma, Fibromyalgia, Hyperlipidemia, Hypertension, Memory Impairment, Musculoskeletal Disorder, Osteoarthritis (OA), Seizure Disorder Additional Past Medical History / Comment(s): BACK PAIN, SHORT TERM MEMORY LOSS , history of lumbar spine surgery 2 at outside institutions. History of multiple treatments and procedures with interventional pain management chronically. She is on chronic high-dose oral pain medications including morphine and Percocet. with pain management. History of Any Multi-Drug Resistant Organisms: None Reported Past Surgical History: Adenoidectomy, Back Surgery, Breast Surgery, Joint Replacement, Orthopedic Surgery, Tonsillectomy Additional Past Surgical History / Comment(s): , LT HAND SURGERY, RT GANGLION CYST REMOVED, LEEP, COLONOSCOPY, EGD, MIGUEL A. CATARACT WITH LENS IMLANTS,RT BREAST BIOPSY, 2 BACK SURGERIES- ONE WAS A LAMINECTOMY, TOTAL LEFT KNEE Past Anesthesia/Blood Transfusion Reactions: No Reported Reaction Past Psychological History: No Psychological Hx Reported Smoking Status: Light tobacco smoker Past Alcohol Use History: None Reported Past Drug Use History: None Reported - Past Family History Brother(s) Family Medical History: Cancer Additional Family Medical History / Comment(s): PANCREATITIS Mother Family Medical History: Hypertension, Memory Impairment Additional Family Medical History / Comment(s): ALZHEIMER'S Father Family Medical History: Coronary Artery Disease (CAD) Additional Family Medical History / Comment(s): HEART PROBLEMS-HAD QUAD- CABG, ALCOHOLISM General Exam Limitations: physical limitation General appearance: alert, in no apparent distress Head exam: Present: atraumatic, normocephalic Eye exam: Present: normal appearance, PERRL, EOMI. Absent: scleral icterus, conjunctival injection ENT exam: Present: mucous membranes dry Neck exam: Present: normal inspection, full ROM. Absent: tenderness Respiratory exam: Present: normal lung sounds bilaterally. Absent: respiratory distress, wheezes, rales, rhonchi Cardiovascular Exam: Present: regular rate, normal rhythm, normal heart sounds. Absent: systolic murmur, diastolic murmur, rubs, gallop GI/Abdominal exam: Present: soft. Absent: tenderness, guarding, rebound Extremities exam: Present: normal inspection, normal capillary refill. Absent: pedal edema, calf tenderness Back exam: Present: normal inspection. Absent: vertebral tenderness Neurological exam: Present: alert, CN II-XII intact. Absent: motor sensory deficit Skin exam: Present: warm, dry, intact, normal color. Absent: rash Course Vital Signs 03/01/18 03/02/18 03/02/18 22:32 00:03 00:17 Temperature 98.3 F Pulse Rate 51 L 50 L 60 Respiratory 19 16 Rate Blood Pressure 188/86 179/77 O2 Sat by Pulse 100 100 Oximetry 03/02/18 03/02/18 00:49 01:24 Temperature Pulse Rate 50 L 50 L Respiratory 16 19 Rate Blood Pressure 173/79 168/87 O2 Sat by Pulse 98 Oximetry Disposition Clinical Impression: Fall, Opioid withdrawal Disposition: HOME SELF-CARE Condition: Fair Instructions: Fall Prevention for Older Adults (ED), Opioid Withdrawal (ED) Is patient prescribed a controlled substance at d/c from ED?: No Referrals: Jaylan Garcia MD [Primary Care Provider] - 1-2 days
[2018-03-02 01:27] VITALS: BP 168/87; RESP 19
== END 2018-03-02 01:44 | disposition home or self-care (01) ==
LOC: EC 22:26
DX: F11.23 Opioid dependence with withdrawal (principal); M79.7 Fibromyalgia; E78.5 Hyperlipidemia, unspecified; I10 Essential (primary) hypertension; G40.909 Epilepsy, unspecified, not intractable, without status epilepticus; M19.90 Unspecified osteoarthritis, unspecified site; F17.200 Nicotine dependence, unspecified, uncomplicated; Z91.81 History of falling; Z88.1 Allergy status to other antibiotic agents; Z88.6 Allergy status to analgesic agent; Z79.899 Other long term (current) drug therapy; W18.39XA Other fall on same level, initial encounter; Y92.009 Unspecified place in unspecified non-institutional (private) residence as the place of occurrence of the external cause
CPT/HCPCS: 99284; 96374; 96375; 96372; 73030; J2270; J2405 ×2; S0109

== ENCOUNTER 2018-04-02 20:23 | Emergency (ER) | payer MEDICARE, OTHER ==
[2018-04-02] MEDS ORDERED: ONDANSETRON 4 MG/2 ML VIAL IVP STA (21:18)
[2018-04-02] MEDS ORDERED: SODIUM CHLORIDE 0.9% 1,000 ML IV STA (21:18)
[2018-04-02] MEDS ORDERED: FAMOTIDINE 20 MG/2 ML VIAL IV STA (21:19)
--- NOTE | 2018-04-02 21:26 | ED ---
General Adult HPI - General Chief complaint: Nausea/Vomiting/Diarrhea Stated complaint: Withdrawal Time Seen by Provider: 04/02/18 21:08 Source: patient, EMS, RN notes reviewed Mode of arrival: EMS Limitations: no limitations - History of Present Illness Initial comments: Patient is a pleasant [age]-year-old female presenting to the emergency department with concerns for morphine withdrawal. Patient is out of her MS Contin. Patient last took some yesterday. Patient states she is supposed normally call 7-10 days of time. When patient realized she was out of the yesterday her doctor was out of town. Her doctor is mostly returning on Wednesday. Patient is concerned that she is going through withdrawal. Patient has had similar problems previously. 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 Patient does have multiple areas of chronic pain. No new pain. Patient does feel shaky. Patient admits to trying to make herself vomit by sticking her fingers down her throat and is doing so when history and exam is started. - Related Data Home Medications Medication Instructions Recorded Confirmed Acetaminophen with Codeine 1 tab PO BID PRN 03/01/18 03/01/18 [Tylenol w/codeine #4] Albuterol Inhaler [Ventolin Hfa 1 - 2 puff INHALATION RT-Q6H PRN 03/01/18 Inhaler] Clonidine (Unk. Dose) 1 tab PO DAILY 03/01/18 03/01/18 DULoxetine HCL [Cymbalta] 60 mg PO DAILY 03/01/18 03/01/18 Ergocalciferol [Vitamin D2] 50,000 unit PO Q7D 03/01/18 03/01/18 Losartan (Unk. Dose) 1 tab PO DAILY 03/01/18 03/01/18 Omeprazole 40 mg PO DAILY 03/01/18 03/01/18 Rosuvastatin [Crestor] 10 mg PO DAILY 03/01/18 03/01/18 levETIRAcetam [Keppra] 500 mg PO Q12HR 03/01/18 03/01/18 Previous Rx's Medication Instructions Recorded ALPRAZolam [Xanax] 0.25 mg PO BID PRN #30 05/26/17 Morphine Sulfate ER [Ms Contin] 30 mg PO BID PRN #30 05/26/17 Ondansetron Odt [Zofran Odt] 4 mg PO Q8HR PRN #10 tab 04/02/18 Allergies Allergy/AdvReac Type Severity Reaction Status Date / Time nitrofurantoin AdvReac Abdominal Verified 03/01/18 22:44 [From Macrobid] Pain/Nausea/Vomiting NSAIDS (Non-Steroidal AdvReac Nausea & Verified 03/01/18 22:44 Anti-Inflamma Vomiting Review of Systems ROS Statement: Those systems with pertinent positive or pertinent negative responses have been documented in the HPI. ROS Other: All systems not noted in ROS Statement are negative. Constitutional: Denies: fever Eyes: Denies: eye pain ENT: Denies: ear pain Respiratory: Denies: cough Cardiovascular: Denies: chest pain Endocrine: Denies: fatigue Gastrointestinal: Reports: nausea, vomiting. Denies: abdominal pain Genitourinary: Denies: dysuria Musculoskeletal: Reports: back pain (chronic) Skin: Denies: rash Neurological: Denies: weakness Psychiatric: Reports: anxiety Past Medical History Past Medical History: Asthma, Fibromyalgia, Hyperlipidemia, Hypertension, Memory Impairment, Musculoskeletal Disorder, Osteoarthritis (OA), Seizure Disorder Additional Past Medical History / Comment(s): BACK PAIN, SHORT TERM MEMORY LOSS , history of lumbar spine surgery 2 at outside institutions. History of multiple treatments and procedures with interventional pain management chronically. She is on chronic high-dose oral pain medications including morphine and Percocet. with pain management. History of Any Multi-Drug Resistant Organisms: None Reported Past Surgical History: Adenoidectomy, Back Surgery, Breast Surgery, Joint Replacement, Orthopedic Surgery, Tonsillectomy Additional Past Surgical History / Comment(s): , LT HAND SURGERY, RT GANGLION CYST REMOVED, LEEP, COLONOSCOPY, EGD, MIGUEL A. CATARACT WITH LENS IMLANTS,RT BREAST BIOPSY, 2 BACK SURGERIES- ONE WAS A LAMINECTOMY, TOTAL LEFT KNEE Past Anesthesia/Blood Transfusion Reactions: No Reported Reaction Past Psychological History: No Psychological Hx Reported Smoking Status: Light tobacco smoker Past Alcohol Use History: None Reported Past Drug Use History: None Reported - Past Family History Brother(s) Family Medical History: Cancer Additional Family Medical History / Comment(s): PANCREATITIS Mother Family Medical History: Hypertension, Memory Impairment Additional Family Medical History / Comment(s): ALZHEIMER'S Father Family Medical History: Coronary Artery Disease (CAD) Additional Family Medical History / Comment(s): HEART PROBLEMS-HAD QUAD- CABG, ALCOHOLISM General Exam Limitations: no limitations General appearance: alert, in no apparent distress, other (Patient trying to self induce emesis sticking her fingers down her throat) Head exam: Present: atraumatic Eye exam: Present: normal appearance, PERRL ENT exam: Present: normal oropharynx Neck exam: Present: normal inspection Respiratory exam: Present: normal lung sounds bilaterally Cardiovascular Exam: Present: regular rate, normal rhythm GI/Abdominal exam: Present: soft. Absent: distended, tenderness Extremities exam: Present: normal inspection Neurological exam: Present: alert Psychiatric exam: Present: anxious Skin exam: Present: normal color Course Vital Signs 04/02/18 04/02/18 20:26 21:43 Temperature 97.1 F L Pulse Rate 62 55 L Respiratory 17 21 Rate Blood Pressure 145/79 142/83 O2 Sat by Pulse 100 100 Oximetry Medical Decision Making - Medical Decision Making Patient reevaluated and resting comfortably in bed. Patient states nausea has improved. Patient requesting a dose of her pain medicine. Patient states she needs a shot and not a pill because she is afraid she could vomit. Patient is agreeable to follow-up with her primary care physician on Wednesday and is comfortable with discharge home at this point. - Lab Data Result diagrams: 04/02/18 21:34 04/02/18 21:34 Lab Results 04/02/18 04/02/18 Range/Units 21:34 21:34 WBC 7.7 (3.8-10.6) k/uL RBC 5.17 (3.80-5.40) m/uL Hgb 15.1 (11.4-16.0) gm/dL Hct 45.1 (34.0-46.0) % MCV 87.1 (80.0-100.0) fL MCH 29.1 (25.0-35.0) pg MCHC 33.5 (31.0-37.0) g/dL RDW 13.1 (11.5-15.5) % Plt Count 291 (150-450) k/uL Neutrophils % 65 % Lymphocytes % 27 % Monocytes % 6 % Eosinophils % 1 % Basophils % 0 % Neutrophils # 5.0 (1.3-7.7) k/uL Lymphocytes # 2.1 (1.0-4.8) k/uL Monocytes # 0.5 (0-1.0) k/uL Eosinophils # 0.1 (0-0.7) k/uL Basophils # 0.0 (0-0.2) k/uL Sodium 141 (137-145) mmol/L Potassium 3.4 L (3.5-5.1) mmol/L Chloride 103 (98-107) mmol/L Carbon Dioxide 20 L (22-30) mmol/L Anion Gap 18 mmol/L BUN 7 (7-17) mg/dL Creatinine 0.59 (0.52-1.04) mg/dL Est GFR (CKD-EPI)AfAm >90 (>60 ml/min/1.73 sqM) Est GFR (CKD-EPI)NonAf >90 (>60 ml/min/1.73 sqM) Glucose 136 H (74-99) mg/dL Calcium 10.0 (8.4-10.2) mg/dL Total Bilirubin 0.8 (0.2-1.3) mg/dL AST 23 (14-36) U/L ALT 33 (9-52) U/L Alkaline Phosphatase 69 (38-126) U/L Total Protein 7.3 (6.3-8.2) g/dL Albumin 5.0 (3.5-5.0) g/dL Amylase 98 (30-110) U/L Lipase 90 (23-300) U/L Disposition Clinical Impression: Vomiting, Opiate withdrawal Disposition: HOME SELF-CARE Condition: Stable Instructions: Acute Nausea and Vomiting (ED), Opioid Withdrawal (ED) Additional Instructions: Please follow-up with primary care physician on Wednesday. Return for uncontrolled vomiting, seizure, confusion, worsening or changing symptoms or other concerns. Prescriptions: Ondansetron Odt [Zofran Odt] 4 mg PO Q8HR PRN #10 tab PRN Reason: Nausea Is patient prescribed a controlled substance at d/c from ED?: No Referrals: Jaylan Garcia MD [Primary Care Provider] - 1-2 days Time of Disposition: 22:42
[2018-04-02 21:45] LABS: Basophils % (A) 0 %; Eosinophils # (A) 0.1 k/uL (0-0.7); Eosinophils % (A) 1 %; HCT 45.1 % (34.0-46.0); HGB 15.1 gm/dL (11.4-16.0); Lymphocytes # (A) 2.1 k/uL (1.0-4.8); Lymphocytes % (A) 27 %; MCH 29.1 pg (25.0-35.0); MCHC 33.5 g/dL (31.0-37.0); MCV 87.1 fL (80.0-100.0); Monocytes # (A) 0.5 k/uL (0-1.0); Monocytes % (A) 6 %; Neutrophils % (A) 65 %; Platelet Count 291 k/uL (150-450); RBC 5.17 m/uL (3.80-5.40); RDW 13.1 % (11.5-15.5); WBC 7.7 k/uL (3.8-10.6)
[2018-04-02 21:57] LABS: ALT 33 U/L (9-52); AST 23 U/L (14-36); Alkaline Phosphatase 69 U/L (38-126); Amylase 98 U/L (30-110); Anion Gap 18 mmol/L; Blood Urea Nitrogen 7 mg/dL (7-17); Carbon Dioxide 20 mmol/L (22-30); Chloride 103 mmol/L (98-107); Glucose 136 mg/dL (74-99); Lipase 90 U/L (23-300); Potassium 3.4 mmol/L (3.5-5.1); Sodium 141 mmol/L (137-145); Total Bilirubin 0.8 mg/dL (0.2-1.3); Total Protein 7.3 g/dL (6.3-8.2)
[2018-04-02] MEDS ORDERED: MORPHINE SULFATE 2 MG/ML SYRINGE IVP STA (22:41)
[2018-04-03 00:20] VITALS: BP 171/84; PULSE 88; RESP 18; TEMP 98.4
== END 2018-04-03 00:20 | disposition home or self-care (01) ==
LOC: EC 20:23
DX: F11.23 Opioid dependence with withdrawal (principal); R11.10 Vomiting, unspecified; G89.29 Other chronic pain; I10 Essential (primary) hypertension; J45.909 Unspecified asthma, uncomplicated; M79.7 Fibromyalgia; E78.5 Hyperlipidemia, unspecified; G40.909 Epilepsy, unspecified, not intractable, without status epilepticus; F17.200 Nicotine dependence, unspecified, uncomplicated; Z79.899 Other long term (current) drug therapy; Z88.1 Allergy status to other antibiotic agents; Z88.6 Allergy status to analgesic agent
CPT/HCPCS: 36415; 80053; 82150; 83690; 85025; 99284; 96374; 96375 ×2; 96361; J2405; J2270

== ENCOUNTER 2019-06-26 03:03 | Emergency (ER) | payer MEDICARE, OTHER ==
--- NOTE | 2019-06-26 03:09 | ED ---
Psych HPI - General Stated Complaint: Mental Health Time Seen by Provider: 06/26/19 03:07 - History of Present Illness Initial Comments: Patient is a 64-year-old female psychiatric history who presents to the emergency department today for psychiatric evaluation. Patient contacted EMS because she is concerned that her hair as worms. They're becoming more aggressive. Patient reports that she has noticed that her hair is worms and she is try to talk to her primary care physician about this who advised her that she should see a psychiatrist. Patient states she knows this is psychiatric. She states that she can see the worms. There in reading her scalp. She states that they've come out at night they're painting her eyelashes Black. She states that they're getting more aggressive and they've been her arm. - Related Data Home Medications Medication Instructions Recorded Confirmed Acetaminophen with Codeine 1 tab PO BID PRN 03/01/18 03/01/18 [Tylenol w/codeine #4] Albuterol Inhaler [Ventolin Hfa 1 - 2 puff INHALATION RT-Q6H PRN 03/01/18 03/01/18 Inhaler] Clonidine (Unk. Dose) 1 tab PO DAILY 03/01/18 03/01/18 DULoxetine HCL [Cymbalta] 60 mg PO DAILY 03/01/18 03/01/18 Ergocalciferol [Vitamin D2] 50,000 unit PO Q7D 03/01/18 03/01/18 Losartan (Unk. Dose) 1 tab PO DAILY 03/01/18 03/01/18 Omeprazole 40 mg PO DAILY 03/01/18 03/01/18 Rosuvastatin [Crestor] 10 mg PO DAILY 03/01/18 03/01/18 levETIRAcetam [Keppra] 500 mg PO Q12HR 03/01/18 03/01/18 Previous Rx's Medication Instructions Recorded ALPRAZolam [Xanax] 0.25 mg PO BID PRN #30 05/26/17 Morphine Sulfate ER [Ms Contin] 30 mg PO BID PRN #30 05/26/17 Ondansetron Odt [Zofran Odt] 4 mg PO Q8HR PRN #10 tab 04/02/18 Allergies Allergy/AdvReac Type Severity Reaction Status Date / Time nitrofurantoin AdvReac Abdominal Verified 06/26/19 03:14 [From Macrobid] Pain/Nausea/Vomiting NSAIDS (Non-Steroidal AdvReac Nausea & Verified 06/26/19 03:14 Anti-Inflamma Vomiting Review of Systems ROS Statement: Those systems with pertinent positive or pertinent negative responses have been documented in the HPI. ROS Other: All systems not noted in ROS Statement are negative. Past Medical History Past Medical History: Asthma, Fibromyalgia, Hyperlipidemia, Hypertension, Memory Impairment, Musculoskeletal Disorder, Osteoarthritis (OA), Seizure Disorder Additional Past Medical History / Comment(s): BACK PAIN, SHORT TERM MEMORY LOSS, history of lumbar spine surgery 2 at outside institutions. History of multiple treatments and procedures with interventional pain management chronically. She is on chronic high-dose oral pain medications including morphine and Percocet. with pain management. History of Any Multi-Drug Resistant Organisms: None Reported Past Surgical History: Adenoidectomy, Back Surgery, Breast Surgery, Joint Replacement, Orthopedic Surgery, Tonsillectomy Additional Past Surgical History / Comment(s): , LT HAND SURGERY, RT GANGLION CYST REMOVED, LEEP, COLONOSCOPY, EGD, MIGUEL A. CATARACT WITH LENS IMLANTS,RT BREAST BIOPSY, 2 BACK SURGERIES- ONE WAS A LAMINECTOMY, TOTAL LEFT KNEE Past Anesthesia/Blood Transfusion Reactions: No Reported Reaction Past Psychological History: No Psychological Hx Reported Smoking Status: Light tobacco smoker Past Alcohol Use History: None Reported Past Drug Use History: None Reported - Past Family History Brother(s) Family Medical History: Cancer Additional Family Medical History / Comment(s): PANCREATITIS Mother Family Medical History: Hypertension, Memory Impairment Additional Family Medical History / Comment(s): ALZHEIMER'S Father Family Medical History: Coronary Artery Disease (CAD) Additional Family Medical History / Comment(s): HEART PROBLEMS-HAD QUAD- CABG, ALCOHOLISM General Exam - General Exam Comments Initial Comments: Physical Exam GENERAL: Patient is well-developed and well-nourished. Patient is nontoxic and well- hydrated and is in no distress. HENT: Normocephalic, Atraumatic. EYES: PERRL, EOMI PULMONARY: Unlabored respirations. No audible rales rhonchi or wheezing was noted. CARDIOVASCULAR: There is a regular rate and rhythm without any murmurs gallops or rubs. ABDOMEN: Soft and nontender with normal bowel sounds. SKIN: Skin is clear with no lesions or rashes and otherwise unremarkable. : Deferred NEUROLOGIC: Patient is alert and oriented x3. Moving all extremities spontaneously MUSCULOSKELETAL: Normal extremities with adequate strength and full range of motion. No lower extremity swelling or edema. No calf tenderness. PSYCHIATRIC: Acutely psychotic, hallucinating Course Vital Signs 06/26/19 06/26/19 03:11 06:24 Temperature 99.1 F 98.7 F Pulse Rate 72 87 Respiratory 18 18 Rate Blood Pressure 148/87 132/70 O2 Sat by Pulse 96 98 Oximetry Medical Decision Making - Medical Decision Making The patient was seen and evaluated history was obtained from EMS as well as the patient Patient reports she became concerned tonight because her hair has turned into worms and she feels these worms are getting more aggressive. On exam patient states that they're currently hiding. Physical exam is unremarkable, there is no signs of any type of parasitosis Patient medically cleared for evaluation by psych Patient petitioned by psych I completed cert Regular diet and Home medications ordered Patient pending transfer to psychiatric ability for inpatient psychiatric care - Lab Data Result diagrams: 06/26/19 03:40 06/26/19 03:40 Lab Results 06/26/19 06/26/19 06/26/19 Range/Units 03:40 03:40 03:40 WBC 6.5 (3.8-10.6) k/uL RBC 4.54 (3.80-5.40) m/uL Hgb 13.1 (11.4-16.0) gm/dL Hct 39.0 (34.0-46.0) % MCV 86.0 (80.0-100.0) fL MCH 28.8 (25.0-35.0) pg MCHC 33.5 (31.0-37.0) g/dL RDW 15.0 (11.5-15.5) % Plt Count 240 (150-450) k/uL Neutrophils % 43 % Lymphocytes % 41 % Monocytes % 7 % Eosinophils % 5 % Basophils % 1 % Neutrophils # 2.8 (1.3-7.7) k/uL Lymphocytes # 2.7 (1.0-4.8) k/uL Monocytes # 0.5 (0-1.0) k/uL Eosinophils # 0.3 (0-0.7) k/uL Basophils # 0.1 (0-0.2) k/uL Sodium 141 (137-145) mmol/L Potassium 4.0 (3.5-5.1) mmol/L Chloride 104 (98-107) mmol/L Carbon Dioxide 29 (22-30) mmol/L Anion Gap 8 mmol/L BUN 12 (7-17) mg/dL Creatinine 0.59 (0.52-1.04) mg/dL Est GFR (CKD-EPI)AfAm >90 (>60 ml/min/1.73 sqM) Est GFR (CKD-EPI)NonAf >90 (>60 ml/min/1.73 sqM) Glucose 99 (74-99) mg/dL Calcium 9.1 (8.4-10.2) mg/dL Total Bilirubin 0.2 (0.2-1.3) mg/dL AST 21 (14-36) U/L ALT 17 (9-52) U/L Alkaline Phosphatase 72 (38-126) U/L Total Protein 6.4 (6.3-8.2) g/dL Albumin 3.9 (3.5-5.0) g/dL Urine Color Yellow Urine Appearance Clear (Clear) Urine pH 5.5 (5.0-8.0) Ur Specific [place] 1.014 (1.001-1.035) Urine Protein Negative (Negative) Urine Glucose (UA) Negative (Negative) Urine Ketones Negative (Negative) Urine Blood Negative (Negative) Urine Nitrite Negative (Negative) Urine Bilirubin Negative (Negative) Urine Urobilinogen <2.0 (<2.0) mg/dL Ur Leukocyte Esterase Negative (Negative) Salicylates <1.0 mg/dL Urine Opiates Screen Not Detected (NotDetected) Ur Oxycodone Screen Not Detected (NotDetected) Urine Methadone Screen Not Detected (NotDetected) Ur Propoxyphene Screen Not Detected (NotDetected) Acetaminophen <10.0 ug/mL Ur Barbiturates Screen Not Detected (NotDetected) U Tricyclic Antidepress Not Detected (NotDetected) Ur Phencyclidine Scrn Not Detected (NotDetected) Ur Amphetamines Screen Not Detected (NotDetected) U Methamphetamines Scrn Not Detected (NotDetected) U Benzodiazepines Scrn Not Detected (NotDetected) Urine Cocaine Screen Not Detected (NotDetected) U Marijuana (THC) Screen Not Detected (NotDetected) Serum Alcohol mg/dL 06/26/19 Range/Units 03:40 WBC (3.8-10.6) k/uL RBC (3.80-5.40) m/uL Hgb (11.4-16.0) gm/dL Hct (34.0-46.0) % MCV (80.0-100.0) fL MCH (25.0-35.0) pg MCHC (31.0-37.0) g/dL RDW (11.5-15.5) % Plt Count (150-450) k/uL Neutrophils % % Lymphocytes % % Monocytes % % Eosinophils % % Basophils % % Neutrophils # (1.3-7.7) k/uL Lymphocytes # (1.0-4.8) k/uL Monocytes # (0-1.0) k/uL Eosinophils # (0-0.7) k/uL Basophils # (0-0.2) k/uL Sodium (137-145) mmol/L Potassium (3.5-5.1) mmol/L Chloride (98-107) mmol/L Carbon Dioxide (22-30) mmol/L Anion Gap mmol/L BUN (7-17) mg/dL Creatinine (0.52-1.04) mg/dL Est GFR (CKD-EPI)AfAm (>60 ml/min/1.73 sqM) Est GFR (CKD-EPI)NonAf (>60 ml/min/1.73 sqM) Glucose (74-99) mg/dL Calcium (8.4-10.2) mg/dL Total Bilirubin (0.2-1.3) mg/dL AST (14-36) U/L ALT (9-52) U/L Alkaline Phosphatase (38-126) U/L Total Protein (6.3-8.2) g/dL Albumin (3.5-5.0) g/dL Urine Color Urine Appearance (Clear) Urine pH (5.0-8.0) Ur Specific [place] (1.001-1.035) Urine Protein (Negative) Urine Glucose (UA) (Negative) Urine Ketones (Negative) Urine Blood (Negative) Urine Nitrite (Negative) Urine Bilirubin (Negative) Urine Urobilinogen (<2.0) mg/dL Ur Leukocyte Esterase (Negative) Salicylates mg/dL Urine Opiates Screen (NotDetected) Ur Oxycodone Screen (NotDetected) Urine Methadone Screen (NotDetected) Ur Propoxyphene Screen (NotDetected) Acetaminophen ug/mL Ur Barbiturates Screen (NotDetected) U Tricyclic Antidepress (NotDetected) Ur Phencyclidine Scrn (NotDetected) Ur Amphetamines Screen (NotDetected) U Methamphetamines Scrn (NotDetected) U Benzodiazepines Scrn (NotDetected) Urine Cocaine Screen (NotDetected) U Marijuana (THC) Screen (NotDetected) Serum Alcohol <10 mg/dL Disposition Clinical Impression: Psychosis Disposition: TRANSFER TO PSYCH HOSP/UNIT Condition: Stable Is patient prescribed a controlled substance at d/c from ED?: No Referrals: Aliya Cosme MD [Primary Care Provider] - 1-2 days
[2019-06-26 03:51] LABS: Basophils # (A) 0.1 k/uL (0-0.2); Basophils % (A) 1 %; Eosinophils # (A) 0.3 k/uL (0-0.7); Eosinophils % (A) 5 %; HGB 13.1 gm/dL (11.4-16.0); Lymphocytes # (A) 2.7 k/uL (1.0-4.8); Lymphocytes % (A) 41 %; MCH 28.8 pg (25.0-35.0); MCHC 33.5 g/dL (31.0-37.0); Mean Platelet Volume 7.9; Monocytes # (A) 0.5 k/uL (0-1.0); Monocytes % (A) 7 %; Neutrophils # (A) 2.8 k/uL (1.3-7.7); Neutrophils % (A) 43 %; Platelet Count 240 k/uL (150-450); RBC 4.54 m/uL (3.80-5.40); WBC 6.5 k/uL (3.8-10.6)
[2019-06-26 03:52] LABS: Appearance,Urine Clear (Clear); Bilirubin,Urine Negative (Negative); Blood,Urine Negative (Negative); Color,Urine Yellow; Glucose,Urine (UA) Negative (Negative); Ketones,Urine Negative (Negative); Leukocyte Esterase,Urine Negative (Negative); Nitrite,Urine Negative (Negative); PH, Urine 5.5 (5.0-8.0); Protein,Urine Negative (Negative); Specific Gravity,Urine 1.014 (1.001-1.035); Urobilinogen,Urine <2.0 mg/dL (<2.0)
[2019-06-26 04:01] LABS: ALT 17 U/L (9-52); AST 21 U/L (14-36); Acetaminophen <10.0 ug/mL; African American GFR (CKD) >90 (>60 ml/min/1.73 sqM); Albumin 3.9 g/dL (3.5-5.0); Alkaline Phosphatase 72 U/L (38-126); Anion Gap 8 mmol/L; Blood Urea Nitrogen 12 mg/dL (7-17); Calcium 9.1 mg/dL (8.4-10.2); Carbon Dioxide 29 mmol/L (22-30); Chloride 104 mmol/L (98-107); Glucose 99 mg/dL (74-99); Salicylate <1.0 mg/dL; Sodium 141 mmol/L (137-145); Total Bilirubin 0.2 mg/dL (0.2-1.3); Total Protein 6.4 g/dL (6.3-8.2)
[2019-06-26 04:02] LABS: Amphetamine Screen,Urine Not Detected (NotDetected); Barbiturate Screen,Urine Not Detected (NotDetected); Benzodiazepines Screen,Urine Not Detected (NotDetected); Cocaine Screen,Urine Not Detected (NotDetected); Methadone Screen, Urine Not Detected (NotDetected); Opiate Screen,Urine Not Detected (NotDetected); Oxycodone Screen, Urine Not Detected (NotDetected); Phencyclidine Screen,Urine Not Detected (NotDetected); Tricyclic Antidepressant,Urine Not Detected (NotDetected); Urn Cannabinoid Scrn Not Detected (NotDetected)
[2019-06-26] MEDS ORDERED: Acetaminophen-Codeine 300-30mg TAB PO STA (06:16)
[2019-06-26 06:26] VITALS: TEMP 98.7
[2019-06-26] MEDS ORDERED: ALBUTEROL NEBULIZED 2.5 MG/3 ML INHALATION PRN (06:59)
[2019-06-26] MEDS ORDERED: ONDANSETRON ODT 4 MG TAB PO PRN (06:59)
[2019-06-26] MEDS: ALPRAZolam 0.25 MG TAB PO PRN ×2 (08:46→13:20)
[2019-06-26] MEDS ORDERED: DULoxetine HCL 60 MG CAPSULE.DR PO SCH (09:00)
[2019-06-26] MEDS ORDERED: NON-FORMULARY DRUG (Rosuvastatin 10 MG) PO SCH (09:00)
[2019-06-26] MEDS ORDERED: levETIRAcetam 500 MG TAB PO SCH (09:00)
[2019-06-26] MEDS ORDERED: NON-FORMULARY DRUG (Omeprazole [Omeprazole] 40 MG) PO SCH (09:00)
--- NOTE | 2019-06-26 10:26 | CT ---
EXAMINATION TYPE: CT brain wo con DATE OF EXAM: 06/26/2019 COMPARISON: 03/08/2017 CT and MRI brain dated 08/04/2017. HISTORY: Altered mental status, dizziness, and weakness. Pain. CT DLP: 1129.4 mGycm Automated exposure control for dose reduction was used. FINDINGS: There is redemonstration of encephalomalacia within the right occipital lobe and left occipital lobe extending into the vertex these are similar to the prior MRI. Old lacunar infarct of the right caudat e nucleus head is also unchanged from the prior MRI. Other scattered foci of hypoattenuation within t he periventricular subcortical white matter are stable from the prior and most commonly on the basis of chronic microangiopathy. Old cerebellar infarcts are also noted. There is symmetric prominence of the ventricular system and peripheral sulci compatible with age-related volume loss. No acute intracr anial hemorrhage is seen however there is some volume averaging from the left temporal bone in the mi ddle cranial fossa. No suspicious extra-axial fluid collection is identified. The calvarium is intact. There is leftward nasal septal deviation. There is moderate mucosal thickeni ng of the ethmoid sinuses. Remaining paranasal sinuses and mastoid air cells are well aerated althoug h there is hypoplasia of the frontal sinuses noted. 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 NO ACUTE INTRACRANIAL PROCESS. AGE-RELATED ATROPHY AND MN LD PARANASAL SINUS DISEASE.
[2019-06-26 12:22] VITALS: BP 126/71; PULSE 74; RESP 16
== END 2019-06-26 13:50 ==
LOC: EC 03:03
DX: F29 Unspecified psychosis not due to a substance or known physiological condition (principal); R41.3 Other amnesia; G40.909 Epilepsy, unspecified, not intractable, without status epilepticus; F11.90 Opioid use, unspecified, uncomplicated; I10 Essential (primary) hypertension; E78.5 Hyperlipidemia, unspecified; J45.909 Unspecified asthma, uncomplicated; M79.7 Fibromyalgia; M19.90 Unspecified osteoarthritis, unspecified site; F17.210 Nicotine dependence, cigarettes, uncomplicated; Z79.51 Long term (current) use of inhaled steroids; Z79.899 Other long term (current) drug therapy; Z88.6 Allergy status to analgesic agent; Z88.1 Allergy status to other antibiotic agents
CPT/HCPCS: 82075; 36415; 80053; 85025; 81003; 80306; 83520; 70450; 99285; G0480 ×2; 80320; 80329

== ENCOUNTER 2019-07-23 15:05 | Inpatient (IN) | payer MEDICARE, OTHER ==
[2019-07-23] MEDS ORDERED: ACETAMINOPHEN TAB 325 MG TAB PO STA (15:42)
[2019-07-23] MEDS ORDERED: DIAZEPAM 5 MG TAB PO STA (15:43)
[2019-07-23] MEDS ORDERED: MORPHINE SULFATE 4 MG/ML SYRINGE IM STA ×2 (15:58→17:43)
--- NOTE | 2019-07-23 16:33 | XR ---
EXAMINATION TYPE: XR lumbar spine 2 or 3V DATE OF EXAM: 07/23/2019 COMPARISON: NONE HISTORY: Back pain TECHNIQUE: 3 views FINDINGS: Lumbar vertebra have fairly normal alignment. There is posterior fusion surgery at L5-S1 wi th disc prosthesis. I see no compression fracture. There is laminectomy defect at L4 and L5. Sacroili ac joints appear intact. There is narrowing of all lumbar disc spaces. IMPRESSION: Spondylotic changes. Previous surgery. No fracture seen.
--- NOTE | 2019-07-23 16:34 | XR ---
EXAMINATION TYPE: XR chest 2V DATE OF EXAM: 07/23/2019 COMPARISON: 05/22/2017 HISTORY: Cough TECHNIQUE: Frontal and lateral views of the chest are obtained. FINDINGS: Heart and mediastinum are normal. Lungs are clear of infiltrate. There is no pleural effus ion. Bony thorax is intact. IMPRESSION: No active cardiopulmonary disease. Heart and lungs unchanged. Old right humeral neck fra cture noted.
[2019-07-23 17:16] LABS: Appearance,Urine Clear (Clear); Bilirubin,Urine Negative (Negative); Blood,Urine Negative (Negative); Color,Urine Yellow; Glucose,Urine (UA) Negative (Negative); Ketones,Urine Negative (Negative); Leukocyte Esterase,Urine Negative (Negative); Nitrite,Urine Negative (Negative); PH, Urine 6.5 (5.0-8.0); Protein,Urine Negative (Negative); Specific Gravity,Urine 1.012 (1.001-1.035); Urobilinogen,Urine <2.0 mg/dL (<2.0)
[2019-07-23] MEDS ORDERED: predniSONE 50 MG TAB PO STA (17:49)
--- NOTE | 2019-07-23 18:24 | CT ---
EXAMINATION TYPE: CT lumbar spine wo con DATE OF EXAM: 07/23/2019 6:09 PM COMPARISON: CT scan 09/06/2017 HISTORY: Pt c/o lower back pain. Denies recent injury CT DLP: 1259 mGycm Automated exposure control for dose reduction was used. Unenhanced CT of the lumbar spine was performed. Bone and soft tissue window settings are submitted as well as coronal and sagittal reconstructions. There is previous posterior fusion surgery at L4-5 with disc prosthesis. Vertebra have fairly normal alignment. There is a few millimeter anterior subluxation of L4 in relation L5. There is 5% anterior wedging of L2 vertebra. There is hypertrophic multilevel lumbar facet arthropathy. There is no lumbar paraspinal mass. There is laminectomy of L4 and L5. Sacroiliac joints appear intact. There is no spi nal stenosis. There is no pathologic posterior fluid collection. IMPRESSION: Spondylotic changes. Degenerative minimal L4-5 spondylolisthesis. No acute bony abnormality. No butterfield e compared to old CT scan. Postsurgical changes.
[2019-07-23] MEDS ORDERED: HYDROmorphone 1 MG/ML 1 ML SYRINGE IVP STA (18:56)
--- NOTE | 2019-07-23 19:03 | ED ---
General Adult HPI - General Chief complaint: Back Pain/Injury Stated complaint: HIP, BACK AND LEG PAIN Time Seen by Provider: 07/23/19 15:11 Source: patient, EMS, RN notes reviewed, old records reviewed Mode of arrival: EMS Limitations: no limitations - History of Present Illness Initial comments: 64-year-old female patient with the chief complaint exacerbation of chronic back pain. Patient was of less today she had pain in her right paralumbar back reg ion. Patient reports that the pain is down her right gluteal region and she has some paresthesias distally. She does report that she has had multiple back surgeries. Patient denies any recent falls or trauma. Patient reports that this pain has been worsening the last 2 days. Patient denies any other complaints. Systemic: Pt denies fatigue, fever/chills, rash. Pt denies weakness, night sweats, weight loss. Neuro: Pt denies headache, visual disturbances, syncope or pre-syncope. HEENT: Pt denies ocular discharge or irritation, otalgia, rhinorrhea, pharyngitis or notable lymphadenopathy. Cardiopulmonary: Pt denies chest pain, SOB, heart palpitations, dyspnea on exertion. Abdominal/GI: Pt denies abdominal pain, n/v/d. : Pt denies dysuria, burning w/ urination, frequency/urgency. Denies new onset urinary or bowel incontinence. MSK: Pt denies loss of strength or function in extremities. Neuro: Pt denies new onset weakness, paresthesias. - Related Data Home Medications Medication Instructions Recorded Confirmed Albuterol Inhaler [Ventolin Hfa 2 puff INHALATION RT-Q6H PRN 03/01/18 06/26/19 Inhaler] DULoxetine HCL [Cymbalta] 60 mg PO HS 03/01/18 06/26/19 Ergocalciferol [Vitamin D2] 50,000 unit PO Q7D 03/01/18 06/26/19 Omeprazole 40 mg PO DAILY 03/01/18 06/26/19 Rosuvastatin [Crestor] 10 mg PO DAILY 03/01/18 06/26/19 levETIRAcetam [Keppra] 500 mg PO Q12HR 03/01/18 06/26/19 Buprenorphine HCl/Naloxone HCl 1 film SL BID 06/26/19 06/26/19 [Suboxone 8 mg-2 mg Sl Film] cloNIDine HCL [Catapres] 0.1 mg PO DAILY 06/26/19 06/26/19 Previous Rx's Medication Instructions Recorded predniSONE 50 mg PO DAILY #4 tab 07/23/19 Allergies Allergy/AdvReac Type Severity Reaction Status Date / Time nitrofurantoin AdvReac Abdominal Verified 07/23/19 15:16 [From Macrobid] Pain/Nausea/Vomiting NSAIDS (Non-Steroidal AdvReac Nausea & Verified 07/23/19 15:16 Anti-Inflamma Vomiting Review of Systems ROS Statement: Those systems with pertinent positive or pertinent negative responses have been documented in the HPI. ROS Other: All systems not noted in ROS Statement are negative. Past Medical History Past Medical History: Asthma, Fibromyalgia, Hyperlipidemia, Hypertension, Memory Impairment, Musculoskeletal Disorder, Osteoarthritis (OA), Seizure Disorder Additional Past Medical History / Comment(s): BACK PAIN, SHORT TERM MEMORY LOSS, history of lumbar spine surgery 2 at outside institutions. History of multiple treatments and procedures with interventional pain management chronically. She is on chronic high-dose oral pain medications including morphine and Percocet. with pain management. History of Any Multi-Drug Resistant Organisms: None Reported Past Surgical History: Adenoidectomy, Back Surgery, Breast Surgery, Joint Replacement, Orthopedic Surgery, Tonsillectomy Additional Past Surgical History / Comment(s): , LT HAND SURGERY, RT GANGLION CYST REMOVED, LEEP, COLONOSCOPY, EGD, MIGUEL A. CATARACT WITH LENS IMLANTS,RT BREAST BIOPSY, 2 BACK SURGERIES- ONE WAS A LAMINECTOMY, TOTAL LEFT KNEE Past Anesthesia/Blood Transfusion Reactions: No Reported Reaction Past Psychological History: No Psychological Hx Reported Smoking Status: Light tobacco smoker Past Alcohol Use History: None Reported Past Drug Use History: None Reported - Past Family History Brother(s) Family Medical History: Cancer Additional Family Medical History / Comment(s): PANCREATITIS Mother Family Medical History: Hypertension, Memory Impairment Additional Family Medical History / Comment(s): ALZHEIMER'S Father Family Medical History: Coronary Artery Disease (CAD) Additional Family Medical History / Comment(s): HEART PROBLEMS-HAD QUAD- CABG, ALCOHOLISM General Exam - General Exam Comments Initial Comments: Constitutional: NAD, AOX3, Pt has pleasant affect. HEENT: NC/AT, trachea midline, neck supple, no lymphadenopathy. Posterior phary nx non erythematous, without exudates. External ears appear normal, without discharge. Mucous membranes moist. Eyes PERRLA, EOM intact. There is no scleral icterus. No pallor noted. Cardiopulmonary: RRR, no murmurs, rubs or gallops, no JVD noted. Lungs CTAB in anterior and posterior aquino. No peripheral edema. Abdominal exam: Abdomen soft and non-distended. Abdomen non-tender to palpation in all 4 quadrants. Bowel sounds active in LLQ. No hepatosplenomegaly. No ecchymosis Neuro: CN II-XII grossly intact. No nuchal rigidity. No raccon eyes, no sanders sign, no hemotympanum. No cervical spinal tenderness. MSK: Right para lumbar region mildly tender to palpation. Right straight leg raise positive. Distal pulses intact and equal. No posterior calf tenderness bilaterally, homans sign negative bilaterally. Posterior tibialis and radial pulse +2 bilaterally. Sensation intact in upper and lower extremities. Full active ROM in upper and lower extremities, 5/5 stregnth. Limitations: no limitations Course Vital Signs 07/23/19 07/23/19 07/23/19 15:13 15:44 18:16 Temperature 99.9 F H 99.7 F H Pulse Rate 80 72 63 Respiratory 18 18 18 Rate Blood Pressure 172/74 178/81 184/84 O2 Sat by Pulse 96 96 94 L Oximetry 07/23/19 07/23/19 07/23/19 18:56 19:04 19:38 Temperature 98.7 F Pulse Rate 60 52 L Respiratory 18 18 Rate Blood Pressure 199/86 190/84 O2 Sat by Pulse 96 95 Oximetry 07/23/19 07/23/19 20:13 20:27 Temperature Pulse Rate 52 L 50 L Respiratory 18 18 Rate Blood Pressure 188/88 190/86 O2 Sat by Pulse 95 94 L Oximetry Medical Decision Making - Medical Decision Making 62-year-old feel patient is to be for exacerbation of chronic right paralumbar back pain. Patient reports has been worsening for the last 2 days. Denies any recent falls or trauma. Patient also displayed mild hypertension. Physical exam displayed positive right straight leg raise, right paralumbar region mild tender palpation. Patient did not have true fever rather had potential low- grade fever. Patient does report she had a mild cough. Chest x-ray did not display any acute process. UA was negative. CT lumbar spine displayed spondylitic changes, the general minimal L4-L5 spondylolisthesis. No acute bony abormality. No change. Old CT. Posterior surgical changes. Patient pain was difficult to control. Further laboratory investigations and CT abdomen and pelvis was ordered. Patient began to feel warm, started mildly sweating, EKG and cardiac enzymes were added to evaluation. EKG nonischemic. Laboratory investigations noncompressive. Troponin negative. The TMs pelvis displayed minimal atelectasis right lung base. No acute pathology. Patient feeling much improved. Diaphoresis resolved mild reaction to opoid pain medication. Patient will discharge, follow-up with primary care provider and orthopedic consult. Will return to ER if condition worsens. Case discussed with Dr. Schroeder and Dr. Peña. - Lab Data Result diagrams: 07/23/19 19:03 07/23/19 19:03 Lab Results 07/23/19 07/23/19 07/23/19 Range/Units 16:51 19:03 19:03 WBC 12.1 H (3.8-10.6) k/uL RBC 4.65 (3.80-5.40) m/uL Hgb 13.6 (11.4-16.0) gm/dL Hct 39.0 (34.0-46.0) % MCV 84.0 (80.0-100.0) fL MCH 29.2 (25.0-35.0) pg MCHC 34.8 (31.0-37.0) g/dL RDW 13.4 (11.5-15.5) % Plt Count 352 (150-450) k/uL Neutrophils % 70 % Lymphocytes % 18 % Monocytes % 8 % Eosinophils % 1 % Basophils % 1 % Neutrophils # 8.5 H (1.3-7.7) k/uL Lymphocytes # 2.1 (1.0-4.8) k/uL Monocytes # 0.9 (0-1.0) k/uL Eosinophils # 0.1 (0-0.7) k/uL Basophils # 0.2 (0-0.2) k/uL Sodium 140 (137-145) mmol/L Potassium 4.1 (3.5-5.1) mmol/L Chloride 103 (98-107) mmol/L Carbon Dioxide 27 (22-30) mmol/L Anion Gap 10 mmol/L BUN 12 (7-17) mg/dL Creatinine 0.53 (0.52-1.04) mg/dL Est GFR (CKD-EPI)AfAm >90 (>60 ml/min/1.73 sqM) Est GFR (CKD-EPI)NonAf >90 (>60 ml/min/1.73 sqM) Glucose 107 H (74-99) mg/dL Calcium 9.2 (8.4-10.2) mg/dL Total Bilirubin 0.6 (0.2-1.3) mg/dL AST 19 (14-36) U/L ALT 21 (9-52) U/L Alkaline Phosphatase 68 (38-126) U/L Troponin I (0.000-0.034) ng/mL Total Protein 6.6 (6.3-8.2) g/dL Albumin 3.7 (3.5-5.0) g/dL Urine Color Yellow Urine Appearance Clear (Clear) Urine pH 6.5 (5.0-8.0) Ur Specific [place] 1.012 (1.001-1.035) Urine Protein Negative (Negative) Urine Glucose (UA) Negative (Negative) Urine Ketones Negative (Negative) Urine Blood Negative (Negative) Urine Nitrite Negative (Negative) Urine Bilirubin Negative (Negative) Urine Urobilinogen <2.0 (<2.0) mg/dL Ur Leukocyte Esterase Negative (Negative) 07/23/19 Range/Units 20:12 WBC (3.8-10.6) k/uL RBC (3.80-5.40) m/uL Hgb (11.4-16.0) gm/dL Hct (34.0-46.0) % MCV (80.0-100.0) fL MCH (25.0-35.0) pg MCHC (31.0-37.0) g/dL RDW (11.5-15.5) % Plt Count (150-450) k/uL Neutrophils % % Lymphocytes % % Monocytes % % Eosinophils % % Basophils % % Neutrophils # (1.3-7.7) k/uL Lymphocytes # (1.0-4.8) k/uL Monocytes # (0-1.0) k/uL Eosinophils # (0-0.7) k/uL Basophils # (0-0.2) k/uL Sodium (137-145) mmol/L Potassium (3.5-5.1) mmol/L Chloride (98-107) mmol/L Carbon Dioxide (22-30) mmol/L Anion Gap mmol/L BUN (7-17) mg/dL Creatinine (0.52-1.04) mg/dL Est GFR (CKD-EPI)AfAm (>60 ml/min/1.73 sqM) Est GFR (CKD-EPI)NonAf (>60 ml/min/1.73 sqM) Glucose (74-99) mg/dL Calcium (8.4-10.2) mg/dL Total Bilirubin (0.2-1.3) mg/dL AST (14-36) U/L ALT (9-52) U/L Alkaline Phosphatase (38-126) U/L Troponin I <0.012 (0.000-0.034) ng/mL Total Protein (6.3-8.2) g/dL Albumin (3.5-5.0) g/dL Urine Color Urine Appearance (Clear) Urine pH (5.0-8.0) Ur Specific [place] (1.001-1.035) Urine Protein (Negative) Urine Glucose (UA) (Negative) Urine Ketones (Negative) Urine Blood (Negative) Urine Nitrite (Negative) Urine Bilirubin (Negative) Urine Urobilinogen (<2.0) mg/dL Ur Leukocyte Esterase (Negative) Disposition Clinical Impression: Lumbar back sprain Disposition: HOME SELF-CARE Condition: Stable Instructions (If sedation given, give patient instructions): Acute Low Back Pain (ED) Additional Instructions: Patient to adhere to previously discussed treatment plan and will take medication(s) as directed. Patient to follow up with PCP in 1-2 days. Patient to return to ED if symptoms do not improve. Follow up with PRIMARY care provider and orthopedic consult tomorrow. Return to ER if condition worsens. Prescriptions: predniSONE 50 mg PO DAILY #4 tab Is patient prescribed a controlled substance at d/c from ED?: No Referrals: Aliya Cosme MD [Primary Care Provider] - 1-2 days Love Sanders DO [Doctor of Osteopathic Medicine] - 1-2 days
[2019-07-23 19:15] LABS: Basophils # (A) 0.2 k/uL (0-0.2); Basophils % (A) 1 %; Eosinophils # (A) 0.1 k/uL (0-0.7); Eosinophils % (A) 1 %; HGB 13.6 gm/dL (11.4-16.0); Lymphocytes # (A) 2.1 k/uL (1.0-4.8); Lymphocytes % (A) 18 %; MCH 29.2 pg (25.0-35.0); MCHC 34.8 g/dL (31.0-37.0); Mean Platelet Volume 6.9; Monocytes # (A) 0.9 k/uL (0-1.0); Monocytes % (A) 8 %; Neutrophils # (A) 8.5 k/uL (1.3-7.7); Neutrophils % (A) 70 %; Platelet Count 352 k/uL (150-450); RBC 4.65 m/uL (3.80-5.40); RDW 13.4 % (11.5-15.5); WBC 12.1 k/uL (3.8-10.6)
[2019-07-23] MEDS ORDERED: LABETALOL 5 MG/ML VIAL MDV IVP STA (19:15)
[2019-07-23] MEDS ORDERED: cloNIDine HCL 0.1 MG TAB PO STA (19:31)
[2019-07-23 19:33] LABS: ALT 21 U/L (9-52); AST 19 U/L (14-36); African American GFR (CKD) >90 (>60 ml/min/1.73 sqM); Albumin 3.7 g/dL (3.5-5.0); Alkaline Phosphatase 68 U/L (38-126); Anion Gap 10 mmol/L; Blood Urea Nitrogen 12 mg/dL (7-17); Calcium 9.2 mg/dL (8.4-10.2); Carbon Dioxide 27 mmol/L (22-30); Chloride 103 mmol/L (98-107); Glucose 107 mg/dL (74-99); Potassium 4.1 mmol/L (3.5-5.1); Sodium 140 mmol/L (137-145); Total Bilirubin 0.6 mg/dL (0.2-1.3); Total Protein 6.6 g/dL (6.3-8.2)
[2019-07-23] MEDS ORDERED: SODIUM CHLORIDE 0.9% 1,000 ML IV STA (19:43)
[2019-07-23] MEDS ORDERED: hydrALAZINE HCL 20 MG/ML 1 ML VIAL IVP STA (20:22)
--- NOTE | 2019-07-23 20:44 | CT ---
EXAMINATION TYPE: CT abdomen pelvis w con DATE OF EXAM: 07/23/2019 COMPARISON: 09/06/2017 HISTORY: Abdominal pain and sweating CT DLP: 1861.6 mGycm Automated exposure control for dose reduction was used. TECHNIQUE: Helical acquisition of images was performed from the lung bases through the pelvis. CONTRAST: Performed without Oral Contrast and with IV Contrast, patient injected with 100 mL of Isovue 300. FINDINGS: There is some mild atelectasis at the right posterior lung base. There is no pleural effusion. Heart size is normal. Liver spleen pancreas gallbladder appear normal. Bile ducts are not dilated. Stomach appears normal. There is no adrenal mass. Kidneys show satisfactory contrast opacification. There is no hydronephrosi s. Ureters are not dilated. Bladder distends smoothly. There is no retroperitoneal adenopathy. There is no free fluid in the pelvis. There is no inguinal hernia. There is metal artifact from right hip prosthesis. There is lower lumbar spine posterior fusion surgery. There is no mesenteric edema. Appendix appears normal. There is no sign of a bowel obstruction. There is no sign of free air. IMPRESSION: MINIMAL PLEURAL REACTION AND ATELECTASIS RIGHT LUNG BASE. PREVIOUS SURGERY. NORMAL APPENDIX. NO ACUTE ABNORMALITY WITHIN THE ABDOMEN PELVIS.
--- NOTE | 2019-07-23 21:22 | ED ---
Medical Decision Making - Lab Data Result diagrams: 07/23/19 19:03 07/23/19 19:03 Lab Results 07/23/19 07/23/19 07/23/19 Range/Units 16:51 19:03 19:03 WBC 12.1 H (3.8-10.6) k/uL RBC 4.65 (3.80-5.40) m/uL Hgb 13.6 (11.4-16.0) gm/dL Hct 39.0 (34.0-46.0) % MCV 84.0 (80.0-100.0) fL MCH 29.2 (25.0-35.0) pg MCHC 34.8 (31.0-37.0) g/dL RDW 13.4 (11.5-15.5) % Plt Count 352 (150-450) k/uL Neutrophils % 70 % Lymphocytes % 18 % Monocytes % 8 % Eosinophils % 1 % Basophils % 1 % Neutrophils # 8.5 H (1.3-7.7) k/uL Lymphocytes # 2.1 (1.0-4.8) k/uL Monocytes # 0.9 (0-1.0) k/uL Eosinophils # 0.1 (0-0.7) k/uL Basophils # 0.2 (0-0.2) k/uL Sodium 140 (137-145) mmol/L Potassium 4.1 (3.5-5.1) mmol/L Chloride 103 (98-107) mmol/L Carbon Dioxide 27 (22-30) mmol/L Anion Gap 10 mmol/L BUN 12 (7-17) mg/dL Creatinine 0.53 (0.52-1.04) mg/dL Est GFR (CKD-EPI)AfAm >90 (>60 ml/min/1.73 sqM) Est GFR (CKD-EPI)NonAf >90 (>60 ml/min/1.73 sqM) Glucose 107 H (74-99) mg/dL Calcium 9.2 (8.4-10.2) mg/dL Total Bilirubin 0.6 (0.2-1.3) mg/dL AST 19 (14-36) U/L ALT 21 (9-52) U/L Alkaline Phosphatase 68 (38-126) U/L Troponin I (0.000-0.034) ng/mL Total Protein 6.6 (6.3-8.2) g/dL Albumin 3.7 (3.5-5.0) g/dL Urine Color Yellow Urine Appearance Clear (Clear) Urine pH 6.5 (5.0-8.0) Ur Specific [place] 1.012 (1.001-1.035) Urine Protein Negative (Negative) Urine Glucose (UA) Negative (Negative) Urine Ketones Negative (Negative) Urine Blood Negative (Negative) Urine Nitrite Negative (Negative) Urine Bilirubin Negative (Negative) Urine Urobilinogen <2.0 (<2.0) mg/dL Ur Leukocyte Esterase Negative (Negative) 07/23/19 Range/Units 20:12 WBC (3.8-10.6) k/uL RBC (3.80-5.40) m/uL Hgb (11.4-16.0) gm/dL Hct (34.0-46.0) % MCV (80.0-100.0) fL MCH (25.0-35.0) pg MCHC (31.0-37.0) g/dL RDW (11.5-15.5) % Plt Count (150-450) k/uL Neutrophils % % Lymphocytes % % Monocytes % % Eosinophils % % Basophils % % Neutrophils # (1.3-7.7) k/uL Lymphocytes # (1.0-4.8) k/uL Monocytes # (0-1.0) k/uL Eosinophils # (0-0.7) k/uL Basophils # (0-0.2) k/uL Sodium (137-145) mmol/L Potassium (3.5-5.1) mmol/L Chloride (98-107) mmol/L Carbon Dioxide (22-30) mmol/L Anion Gap mmol/L BUN (7-17) mg/dL Creatinine (0.52-1.04) mg/dL Est GFR (CKD-EPI)AfAm (>60 ml/min/1.73 sqM) Est GFR (CKD-EPI)NonAf (>60 ml/min/1.73 sqM) Glucose (74-99) mg/dL Calcium (8.4-10.2) mg/dL Total Bilirubin (0.2-1.3) mg/dL AST (14-36) U/L ALT (9-52) U/L Alkaline Phosphatase (38-126) U/L Troponin I <0.012 (0.000-0.034) ng/mL Total Protein (6.3-8.2) g/dL Albumin (3.5-5.0) g/dL Urine Color Urine Appearance (Clear) Urine pH (5.0-8.0) Ur Specific [place] (1.001-1.035) Urine Protein (Negative) Urine Glucose (UA) (Negative) Urine Ketones (Negative) Urine Blood (Negative) Urine Nitrite (Negative) Urine Bilirubin (Negative) Urine Urobilinogen (<2.0) mg/dL Ur Leukocyte Esterase (Negative) - EKG Data -: EKG Interpreted by Me EKG Comments: Ancillary 51, painful 134, QRS 90, QT/QTc 4 sensation 4:30. Sinus bradycardia, otherwise normal EKG, no concern for acute ischemia. Disposition Clinical Impression: Lumbar back sprain Disposition: HOME SELF-CARE Condition: Stable Instructions (If sedation given, give patient instructions): Acute Low Back Pain (ED) Additional Instructions: Patient to adhere to previously discussed treatment plan and will take medication(s) as directed. Patient to follow up with PCP in 1-2 days. Patient to return to ED if symptoms do not improve. Follow up with PRIMARY care provider and orthopedic consult tomorrow. Return to ER if condition worsens. Prescriptions: predniSONE 50 mg PO DAILY #4 tab Is patient prescribed a controlled substance at d/c from ED?: No Referrals: Aliya Cosme MD [Primary Care Provider] - 1-2 days Love Sanders DO [Doctor of Osteopathic Medicine] - 1-2 days
[2019-07-23] MEDS ORDERED: MORPHINE SULFATE 4 MG/ML SYRINGE IV STA (22:22)
--- NOTE | 2019-07-23 22:39 | ED ---
Medical Decision Making - Medical Decision Making Patient not able to ambulate due to right paralumbar region. Patient be admitted pain control and observation. Patient continues to deny any red flag symptoms. Denies any loss of bowel or bladder control, saddle anesthesia, lower extremity weakness. Patient declined rectal exam. Repeat physical exam again displayed right paralumbar back tenderness. Lower extremity sensation, range of motion, strength intact. - Lab Data Result diagrams: 07/23/19 19:03 07/23/19 19:03 Lab Results 07/23/19 07/23/19 07/23/19 Range/Units 16:51 19:03 19:03 WBC 12.1 H (3.8-10.6) k/uL RBC 4.65 (3.80-5.40) m/uL Hgb 13.6 (11.4-16.0) gm/dL Hct 39.0 (34.0-46.0) % MCV 84.0 (80.0-100.0) fL MCH 29.2 (25.0-35.0) pg MCHC 34.8 (31.0-37.0) g/dL RDW 13.4 (11.5-15.5) % Plt Count 352 (150-450) k/uL Neutrophils % 70 % Lymphocytes % 18 % Monocytes % 8 % Eosinophils % 1 % Basophils % 1 % Neutrophils # 8.5 H (1.3-7.7) k/uL Lymphocytes # 2.1 (1.0-4.8) k/uL Monocytes # 0.9 (0-1.0) k/uL Eosinophils # 0.1 (0-0.7) k/uL Basophils # 0.2 (0-0.2) k/uL Sodium 140 (137-145) mmol/L Potassium 4.1 (3.5-5.1) mmol/L Chloride 103 (98-107) mmol/L Carbon Dioxide 27 (22-30) mmol/L Anion Gap 10 mmol/L BUN 12 (7-17) mg/dL Creatinine 0.53 (0.52-1.04) mg/dL Est GFR (CKD-EPI)AfAm >90 (>60 ml/min/1.73 sqM) Est GFR (CKD-EPI)NonAf >90 (>60 ml/min/1.73 sqM) Glucose 107 H (74-99) mg/dL Calcium 9.2 (8.4-10.2) mg/dL Total Bilirubin 0.6 (0.2-1.3) mg/dL AST 19 (14-36) U/L ALT 21 (9-52) U/L Alkaline Phosphatase 68 (38-126) U/L Troponin I (0.000-0.034) ng/mL Total Protein 6.6 (6.3-8.2) g/dL Albumin 3.7 (3.5-5.0) g/dL Urine Color Yellow Urine Appearance Clear (Clear) Urine pH 6.5 (5.0-8.0) Ur Specific [place] 1.012 (1.001-1.035) Urine Protein Negative (Negative) Urine Glucose (UA) Negative (Negative) Urine Ketones Negative (Negative) Urine Blood Negative (Negative) Urine Nitrite Negative (Negative) Urine Bilirubin Negative (Negative) Urine Urobilinogen <2.0 (<2.0) mg/dL Ur Leukocyte Esterase Negative (Negative) 07/23/19 Range/Units 20:12 WBC (3.8-10.6) k/uL RBC (3.80-5.40) m/uL Hgb (11.4-16.0) gm/dL Hct (34.0-46.0) % MCV (80.0-100.0) fL MCH (25.0-35.0) pg MCHC (31.0-37.0) g/dL RDW (11.5-15.5) % Plt Count (150-450) k/uL Neutrophils % % Lymphocytes % % Monocytes % % Eosinophils % % Basophils % % Neutrophils # (1.3-7.7) k/uL Lymphocytes # (1.0-4.8) k/uL Monocytes # (0-1.0) k/uL Eosinophils # (0-0.7) k/uL Basophils # (0-0.2) k/uL Sodium (137-145) mmol/L Potassium (3.5-5.1) mmol/L Chloride (98-107) mmol/L Carbon Dioxide (22-30) mmol/L Anion Gap mmol/L BUN (7-17) mg/dL Creatinine (0.52-1.04) mg/dL Est GFR (CKD-EPI)AfAm (>60 ml/min/1.73 sqM) Est GFR (CKD-EPI)NonAf (>60 ml/min/1.73 sqM) Glucose (74-99) mg/dL Calcium (8.4-10.2) mg/dL Total Bilirubin (0.2-1.3) mg/dL AST (14-36) U/L ALT (9-52) U/L Alkaline Phosphatase (38-126) U/L Troponin I <0.012 (0.000-0.034) ng/mL Total Protein (6.3-8.2) g/dL Albumin (3.5-5.0) g/dL Urine Color Urine Appearance (Clear) Urine pH (5.0-8.0) Ur Specific [place] (1.001-1.035) Urine Protein (Negative) Urine Glucose (UA) (Negative) Urine Ketones (Negative) Urine Blood (Negative) Urine Nitrite (Negative) Urine Bilirubin (Negative) Urine Urobilinogen (<2.0) mg/dL Ur Leukocyte Esterase (Negative) Disposition Clinical Impression: Lumbar back sprain Disposition: ADMITTED IP TO THIS HOSP Condition: Fair Additional Instructions: Patient to adhere to previously discussed treatment plan and will take medication(s) as directed. Patient to follow up with PCP in 1-2 days. Patient to return to ED if symptoms do not improve. Follow up with PRIMARY care provider and orthopedic consult tomorrow. Return to ER if condition worsens. Prescriptions: predniSONE 50 mg PO DAILY #4 tab Is patient prescribed a controlled substance at d/c from ED?: No Referrals: Aliya Cosme MD [Primary Care Provider] - 1-2 days Love Sanders DO [Doctor of Osteopathic Medicine] - 1-2 days
[2019-07-23] MEDS ORDERED: ACETAMINOPHEN TAB 325 MG TAB PO PRN (22:52)
[2019-07-23] MEDS ORDERED: NALOXONE 0.4 MG/ML 1 ML VIAL IV PRN (22:52)
[2019-07-23] MEDS ORDERED: cloNIDine 0.1 MG/24HR PATCH TRANSDERM SCH (23:45)
[2019-07-24] MEDS: SODIUM CHLORIDE 0.9% 1,000 ML IV SCH ×2 (00:10→17:38)
[2019-07-24] MEDS: HYDROmorphone 1 MG/ML 1 ML SYRINGE IVP PRN ×3 (01:07→09:53)
[2019-07-24] MEDS: LORATADINE 10 MG TAB PO SCH (08:19)
[2019-07-24] MEDS: levETIRAcetam 500 MG TAB PO SCH ×2 (08:19→21:00)
[2019-07-24] MEDS: DOCUSATE 100 MG CAP PO SCH (08:19)
[2019-07-24] MEDS: PANTOPRAZOLE 40 MG TABLET PO SCH (08:19)
[2019-07-24] MEDS ORDERED: KETOROLAC 30 MG/ML 1 ML VIAL IVP PRN (11:08)
[2019-07-24] MEDS: FAMOTIDINE 20 MG TAB PO SCH ×2 (11:16→21:00)
--- NOTE | 2019-07-24 13:10 | P.HPIM ---
History of Present Illness Patient is a 64-year-old female came in with complaints of back pain in the paraspinal area with paresthesias going to the right gluteal region down the legs when I asked patient is comparing of tingling and numbness in both legs, an d also weakness although upon exam patient does have good strength in both legs patient states she is unable to stand up because of severe pain patient had a CAT scan of the back which did not show any significant acute changes except for chronic degenerative changes and spondylolisthesis in the lumbar spine area. Back surgery was consult and the patient was started on multiple medications for pain including Dilaudid. Dilaudid was discontinued and patient was started on tramadol. Patient states she cannot tolerate Toradol because of for gastritis. She denied any fever chills patient denied any. Denied any zach-anal saddle anesthesia. Patient doesn't use any IV drugs is no evidence of any epidural abscess at this time. Review of Systems REVIEW OF SYSTEMS: CONSTITUTIONAL: No fever, no malaise, no fatigue. HEENT: No recent visual problems or hearing problems. Denied any sore throat. CARDIOVASCULAR: No chest pain, orthopnea, PND, no palpitations, no syncope. PULMONARY: No shortness of breath, no cough, no hemoptysis. GASTROINTESTINAL: No diarrhea, no nausea, no vomiting, no abdominal pain. NEUROLOGICAL: No headaches, no weakness, no numbness. HEMATOLOGICAL: Denies any bleeding or petechiae. GENITOURINARY: Denies any burning micturition, frequency, or urgency. MUSCULOSKELETAL/RHEUMATOLOGICAL: As mentioned in HPI ENDOCRINE: Denies any polyuria or polydipsia. The rest of the 14-point review of systems is negative. Past Medical History Past Medical History: Asthma, Fibromyalgia, Hyperlipidemia, Hypertension, Memory Impairment, Musculoskeletal Disorder, Osteoarthritis (OA), Seizure Disorder Additional Past Medical History / Comment(s): BACK PAIN, SHORT TERM MEMORY LOSS, history of lumbar spine surgery 2 at outside institutions. History of multiple treatments and procedures with interventional pain management chronically. She is on chronic high-dose oral pain medications including morphine and Percocet. with pain management. History of Any Multi-Drug Resistant Organisms: None Reported Past Surgical History: Adenoidectomy, Back Surgery, Breast Surgery, Joint Replacement, Orthopedic Surgery, Tonsillectomy Additional Past Surgical History / Comment(s): , LT HAND SURGERY, RT GANGLION CYST REMOVED, LEEP, COLONOSCOPY, EGD, MIGUEL A. CATARACT WITH LENS IMLANTS,RT BREAST BIOPSY, 2 BACK SURGERIES- ONE WAS A LAMINECTOMY, TOTAL LEFT KNEE Past Anesthesia/Blood Transfusion Reactions: No Reported Reaction Past Psychological History: No Psychological Hx Reported Additional Psychological History / Comment(s): SHORT TERM MEMORY LOSS Smoking Status: Light tobacco smoker Past Alcohol Use History: None Reported Additional Past Alcohol Use History / Comment(s): SMOKE PIPES DAILY STARTED SMOKING AT AGE 20 Past Drug Use History: None Reported - Past Family History Brother(s) Family Medical History: Cancer Additional Family Medical History / Comment(s): PANCREATITIS Mother Family Medical History: Hypertension, Memory Impairment Additional Family Medical History / Comment(s): ALZHEIMER'S Father Family Medical History: Coronary Artery Disease (CAD) Additional Family Medical History / Comment(s): HEART PROBLEMS-HAD QUAD- CABG, ALCOHOLISM Medications and Allergies Home Medications Medication Instructions Recorded Confirmed Type Ergocalciferol [Vitamin D2] 50,000 unit PO Q7D 03/01/18 07/23/19 History Omeprazole 40 mg PO DAILY 03/01/18 07/23/19 History levETIRAcetam [Keppra] 500 mg PO BID 03/01/18 07/23/19 History cloNIDine HCL [Catapres] 0.1 mg PO DAILY 06/26/19 07/23/19 History Docusate Sodium [Dok] 100 mg PO DAILY 07/23/19 07/23/19 History Loratadine [Claritin] 10 mg PO DAILY 07/23/19 07/23/19 History Methocarbamol [Robaxin] 500 mg PO BID PRN 07/23/19 07/23/19 History Promethazine 6.25MG/5Ml [Phenergan 12.5 mg PO QID PRN 07/23/19 07/23/19 History Syrup] hydrOXYzine HCL 25 mg PO BID 07/23/19 07/23/19 History predniSONE 50 mg PO DAILY #4 tab 07/23/19 Rx predniSONE See Taper PO DIRECTED 07/23/19 07/23/19 History risperiDONE [RisperDAL] 1 mg PO DAILY 07/23/19 07/23/19 History risperiDONE [RisperDAL] 2 mg PO HS 07/23/19 07/23/19 History traZODone HCL [Desyrel] 25 mg PO HS 07/23/19 07/23/19 History Allergies Allergy/AdvReac Type Severity Reaction Status Date / Time nitrofurantoin AdvReac Abdominal Verified 07/23/19 23:18 [From Macrobid] Pain/Nausea/Vomiting NSAIDS (Non-Steroidal AdvReac Nausea & Verified 07/23/19 23:18 Anti-Inflamma Vomiting Physical Exam Vitals: Vital Signs Temp Pulse Pulse Resp BP BP Pulse Ox 07/24/19 08:00 16 07/24/19 07:21 98.8 F 53 L 16 183/79 91 L 07/24/19 01:05 55 L 07/24/19 00:38 97.6 F 55 L 18 187/80 97 07/23/19 23:52 97.9 F 51 L 18 190/83 95 07/23/19 22:29 59 L 18 177/81 94 L 07/23/19 21:31 66 18 178/99 96 07/23/19 20:27 50 L 18 190/86 94 L 07/23/19 20:13 52 L 18 188/88 95 07/23/19 19:38 52 L 18 190/84 95 07/23/19 19:04 60 18 199/86 96 07/23/19 18:56 98.7 F 07/23/19 18:16 63 18 184/84 94 L 07/23/19 15:44 99.7 F H 72 18 178/81 96 07/23/19 15:13 99.9 F H 80 18 172/74 96 Intake and Output 07/23/19 07/24/19 07/24/19 22:59 06:59 14:59 Intake Total 0 Balance 0 Intake: Oral 0 Other: Voiding Method Bedside Commode Bedside Commode # Voids 2 Weight 81.647 kg PHYSICAL EXAMINATION: GENERAL: The patient is alert and oriented x3, not in any acute distress. Well developed, well nourished. HEENT: Pupils are round and equally reacting to light. EOMI. No scleral icterus. No conjunctival pallor. Normocephalic, atraumatic. No pharyngeal erythema. No thyromegaly. CARDIOVASCULAR: S1 and S2 present. No murmurs, rubs, or gallops. PULMONARY: Chest is clear to auscultation, no wheezing or crackles. ABDOMEN: Soft, nontender, nondistended, normoactive bowel sounds. No palpable organomegaly. MUSCULOSKELETAL: Deferred to orthopedic surgery EXTREMITIES: No cyanosis, clubbing, or pedal edema. NEUROLOGICAL: Gross neurological examination did not reveal any focal deficits. SKIN: No rashes. Results CBC & Chem 7: 07/23/19 19:03 07/23/19 19:03 Labs: Abnormal Lab Results - Last 24 Hours (Table) 07/23/19 07/23/19 Range/Units 19:03 19:03 WBC 12.1 H (3.8-10.6) k/uL Neutrophils # 8.5 H (1.3-7.7) k/uL Glucose 107 H (74-99) mg/dL Thrombosis Risk Factor Assmnt - Choose All That Apply Each Risk Factor Represents 2 Points: Age 61-74 years Thrombosis Risk Factor Assessment Total Risk Factor Score: 2 Thrombosis Risk Factor Assessment Level: Low Risk Assessment and Plan Plan: -Back pain which appears to be chronic and worsening back pain: Pain management as mentioned above we'll try to avoid opiates. Orthopedic surgery was consulted will await the recommendations. Physical therapy and occupational therapy consultation. There is no evidence of an abscess or fracture. -Fibromyalgia -asthma without any acute exacerbation -Hypertension -Seizure disorder continue with Keppra. -Gastroesophageal reflux disease For above-mentioned chronic medical problems patient will be resumed and continued on appropriate home medications
[2019-07-24] MEDS: traMADol 50 MG TAB PO SCH ×3 (13:19→23:07)
[2019-07-24] MEDS ORDERED: ACETAMINOPHEN TAB 500 MG TAB PO PRN (15:45)
[2019-07-24] MEDS ORDERED: HEPARIN SODIUM,PORCINE 5,000 UNIT/ML 1 ML VIAL SQ SCH (16:00)
[2019-07-24] MEDS: CYCLOBENZAPRINE 5 MG TAB PO PRN (17:37)
--- NOTE | 2019-07-24 18:10 | P.CNOR ---
History of Present Illness - [facility] Consult date: 07/24/19 Requesting physician: Sudhakar Saavedra Consult reason: low back pain (Intractable low back pain and bilateral lower extremity radiculopathy with difficulty with ambulation) History of present illness: Patient is very pleasant 64-year-old female who is seen and examined the bedside for further evaluation for intractable low back pain and difficulty ambulation. She is known have previously undergone lumbosacral fusion performed in approximately [address] Stanley in [place], [place]. She states she had done fairly well overall with management of her pain through pain management until recently. She states over the past couple days she has had severe low back pain with pain radiating into the bilateral buttocks, and a posterior thighs, and through the calves to the heels. These symptoms are bilaterally. She is having significant difficulty ambulation due to her pain. She denies any injuries. She states she has never experienced pain like this before. Her pain is ongoing at all times and is exacerbated with sitting, standing, ambulation. Her pain is less severe while lying down. She states over the years following her lumbosacral surgery she had follow-up pain management and underwent injections along with oral medications as prescribed by pain management through [facility]. She states she later follow-up with Dr. Ghosh for treatment and evaluation and was prescribed medication by him. She states throughout her treatment she was eventually fired is a patient through multiple providers and has not been able to receive pain medications over the past year. She is well- known to our practice as she previously underwent a right hip hemiarthroplasty for right femoral neck fracture performed on 05/22/2017. She has recovered in regards to her right hip since that time without difficulty. Patient does have a medical history which includes fibromyalgia, hypertension, seizure disorder, and asthma. X-rays the lumbar spine and lumbar CT were taken during her presentation to the emergency department. Past Medical History Past Medical History: Asthma, Fibromyalgia, Hyperlipidemia, Hypertension, Memory Impairment, Musculoskeletal Disorder, Osteoarthritis (OA), Seizure Disorder Additional Past Medical History / Comment(s): BACK PAIN, SHORT TERM MEMORY LOSS, history of lumbar spine surgery 2 at outside institutions. History of multiple treatments and procedures with interventional pain management chronically. She is on chronic high-dose oral pain medications including morphine and Percocet. with pain management. History of Any Multi-Drug Resistant Organisms: None Reported Past Surgical History: Adenoidectomy, Back Surgery, Breast Surgery, Joint Replacement, Orthopedic Surgery, Tonsillectomy Additional Past Surgical History / Comment(s): , LT HAND SURGERY, RT GANGLION CYST REMOVED, LEEP, COLONOSCOPY, EGD, MIGUEL A. CATARACT WITH LENS IMLANTS,RT BREAST BIOPSY, 2 BACK SURGERIES- ONE WAS A LAMINECTOMY, TOTAL LEFT KNEE Past Anesthesia/Blood Transfusion Reactions: No Reported Reaction Past Psychological History: No Psychological Hx Reported Additional Psychological History / Comment(s): SHORT TERM MEMORY LOSS Smoking Status: Light tobacco smoker Past Alcohol Use History: None Reported Additional Past Alcohol Use History / Comment(s): SMOKE PIPES DAILY STARTED SMOKING AT AGE 20 Past Drug Use History: None Reported - Past Family History Brother(s) Family Medical History: Cancer Additional Family Medical History / Comment(s): PANCREATITIS Mother Family Medical History: Hypertension, Memory Impairment Additional Family Medical History / Comment(s): ALZHEIMER'S Father Family Medical History: Coronary Artery Disease (CAD) Additional Family Medical History / Comment(s): HEART PROBLEMS-HAD QUAD- CABG, ALCOHOLISM Medications and Allergies Home Medications Medication Instructions Recorded Confirmed Type Ergocalciferol [Vitamin D2] 50,000 unit PO Q7D 03/01/18 07/23/19 History Omeprazole 40 mg PO DAILY 03/01/18 07/23/19 History levETIRAcetam [Keppra] 500 mg PO BID 03/01/18 07/23/19 History cloNIDine HCL [Catapres] 0.1 mg PO DAILY 06/26/19 07/23/19 History Docusate Sodium [Dok] 100 mg PO DAILY 07/23/19 07/23/19 History Loratadine [Claritin] 10 mg PO DAILY 07/23/19 07/23/19 History Methocarbamol [Robaxin] 500 mg PO BID PRN 07/23/19 07/23/19 History Promethazine 6.25MG/5Ml [Phenergan 12.5 mg PO QID PRN 07/23/19 07/23/19 History Syrup] hydrOXYzine HCL 25 mg PO BID 07/23/19 07/23/19 History predniSONE 50 mg PO DAILY #4 tab 07/23/19 Rx predniSONE See Taper PO DIRECTED 07/23/19 07/23/19 History risperiDONE [RisperDAL] 1 mg PO DAILY 07/23/19 07/23/19 History risperiDONE [RisperDAL] 2 mg PO HS 07/23/19 07/23/19 History traZODone HCL [Desyrel] 25 mg PO HS 07/23/19 07/23/19 History Allergies Allergy/AdvReac Type Severity Reaction Status Date / Time nitrofurantoin AdvReac Abdominal Verified 07/23/19 23:18 [From Macrobid] Pain/Nausea/Vomiting NSAIDS (Non-Steroidal AdvReac Nausea & Verified 07/23/19 23:18 Anti-Inflamma Vomiting Physical Examination Physical exam: Patient is awake, alert, and oriented 3 Vital signs stable Good chest excursion with deep inspiration and expiration Abdomen soft nontender Examination of lumbar spine reveals skin is intact with no abrasions, lacerations, or bruises; no erythema, purulence or signs of infection Evidence of a well-healed incision along the midline of the lower lumbar spine Significant pain with palpation over the entire lumbar spine Evidence of well-healed incisions over the right hip Dorsiflexion, plantarflexion, and extensor hallucis longus positive sustained bilaterally Lower extremity strength positive sustained throughout range of motion without significant difficulty bilaterally Patellar reflex 2+ on the right and 1+ on the left; Achilles reflexes 0+ bilaterally No lower extremity hyperreflexia bilaterally Straight leg test negative bilateral lower extremities No signs or symptoms of DVT; no calf pain No pain with internal and external rotation of the hips bilaterally Neurovascularly intact Results Pertinent studies: CT of the lumbar spine taken on 07/23/2019: Evidence of rods, screws, and interbody devices at L5-S1 which appears in good alignment and good position; L4-5 mild degenerative spondylolisthesis; multilevel lumbar facet hypertrophy; apparent L4-5 laminectomy defect; no evidence of significant spinal canal stenosis; imaging appears stable as compared to previous CT taken on 09/06/2017 X-rays of the lumbar spine taken on 07/23/2019: Rods and screws and interbody device appear to be in good alignment of position at L5-S1; no evidence of compression fracture deformity; laminectomy defect at L4 and L5; degenerative disc disease throughout the lumbar spine - Labs Labs: Abnormal Lab Results - Last 24 Hours (Table) 07/23/19 07/23/19 Range/Units 19:03 19:03 WBC 12.1 H (3.8-10.6) k/uL Neutrophils # 8.5 H (1.3-7.7) k/uL Glucose 107 H (74-99) mg/dL H & H 07/23/19 Range/Units 19:03 Hgb 13.6 (11.4-16.0) gm/dL Hct 39.0 (34.0-46.0) % Result Diagrams: 07/23/19 19:03 07/23/19 19:03 Assessment and Plan Assessment: Assessment: Intractable low back pain Difficulty in ambulation due to pain Bilateral lower extremity radiculopathy L4-5 spondylolisthesis Lumbar facet spondylosis Laminectomy defect L4 and L5 History of right hemiarthroplasty for right femoral neck fracture History which includes fibromyalgia, hypertension, seizure disorder, and asthma (1) Intractable low back pain Current Visit: Yes Status: Acute Code(s): M54.5 - LOW BACK PAIN SNOMED Code(s): 81968434803772183 (2) Unable to ambulate Current Visit: Yes Status: Acute Code(s): R26.2 - DIFFICULTY IN WALKING, NOT ELSEWHERE CLASSIFIED SNOMED Code(s): 936650054 (3) Spondylolisthesis, lumbar region Current Visit: Yes Status: Acute Code(s): M43.16 - SPONDYLOLISTHESIS, LUMBAR REGION SNOMED Code(s): 019050152422909 (4) Lumbar facet arthropathy Current Visit: Yes Status: Acute Code(s): M47.816 - SPONDYLOSIS W/O MYELOPATHY OR RADICULOPATHY, LUMBAR REGION SNOMED Code(s): 700441489 (5) History of lumbar fusion Current Visit: Yes Status: Acute Code(s): Z98.1 - ARTHRODESIS STATUS SNOMED Code(s): 25200403527818 (6) History of lumbar laminectomy Current Visit: Yes Status: Acute Code(s): Z98.890 - OTHER SPECIFIED POSTPROCEDURAL STATES SNOMED Code(s): 33018960424968804 (7) History of hemiarthroplasty of right hip Current Visit: Yes Status: Acute Code(s): Z96.641 - PRESENCE OF RIGHT ARTIFICIAL HIP JOINT SNOMED Code(s): 152625323 (8) History of hypertension Current Visit: Yes Status: Acute Code(s): Z86.79 - PERSONAL HISTORY OF OTHER DISEASES OF THE CIRCULATORY SYSTEM SNOMED Code(s): 219554026 (9) History of fibromyalgia Current Visit: Yes Status: Acute Code(s): Z87.39 - PERSONAL HISTORY OF DISEASES OF THE MS SYS AND CONN TISS SNOMED Code(s): 962882089 (10) History of seizure disorder Current Visit: Yes Status: Acute Code(s): Z86.69 - PERSONAL HISTORY OF DIS OF THE NERVOUS SYS AND SENSE ORGANS SNOMED Code(s): 293554648 Plan: Plan: 1. Patient has been discussed in detail with Dr. Kev Sanders. After physical examination the patient, further discussion with the patient, and reviewing of imaging, we will currently plan to continue with conservative treatment. We'll plan to obtain an MRI of the lumbar spine with and without contrast given her significant symptoms including intractable back pain and difficulty ambulation along with findings of spondylolisthesis and her history of previous lumbosacral fusion. We will also plan to consult pain management for further evaluation to discuss possible treatments including the possibility of injections and/or oral medications. We will plan to follow-up with the patient following the comple tion of her lumbar MRI to discuss results and discuss possible treatment options. She may continue with pain medicine as prescribed as needed for relief of her symptoms. 2. Patient currently waiting for consultation with pain management. 3. Patient will continue recently examined by medicine. Time with Patient: Greater than 30 (Including obtaining history, physical exam ination, reviewing of imaging, and dictation.)
[2019-07-24] MEDS: hydrOXYzine HCL 25 MG TAB PO SCH (21:04)
[2019-07-24] MEDS: risperiDONE 2 MG TAB PO SCH (21:06)
[2019-07-24] MEDS: BISACODYL 5 MG TABLET.DR PO PRN (21:06)
[2019-07-24] MEDS ORDERED: hydrALAZINE HCL 20 MG/ML 1 ML VIAL IVP STA (23:33)
[2019-07-25] MEDS: hydrOXYzine HCL 25 MG TAB PO SCH ×2 (08:00→21:06)
[2019-07-25] MEDS: traMADol 50 MG TAB PO SCH ×4 (08:01→21:06)
[2019-07-25] MEDS: PANTOPRAZOLE 40 MG TABLET PO SCH (08:01)
[2019-07-25] MEDS: SODIUM CHLORIDE 0.9% 1,000 ML IV SCH (08:02)
[2019-07-25] MEDS: DOCUSATE 100 MG CAP PO SCH (08:02)
[2019-07-25] MEDS: FAMOTIDINE 20 MG TAB PO SCH ×2 (08:02→21:06)
[2019-07-25] MEDS: LORATADINE 10 MG TAB PO SCH (08:02)
[2019-07-25] MEDS: levETIRAcetam 500 MG TAB PO SCH ×2 (08:02→21:05)
[2019-07-25] MEDS ORDERED: risperiDONE 1 MG TAB PO SCH (09:00)
[2019-07-25] MEDS ORDERED: LACTATED RINGERS 1,000 ML IV ONE (09:59)
--- NOTE | 2019-07-25 10:48 | P.PCN ---
Date of Procedure: 07/25/19 Procedure(s) Performed: PREOP DIAGNOSIS: 1- Lumbar postlaminectomy syndrome. POSTOP DIAGNOSIS:1- Lumbar postlaminectomy syndrome. PROCEDURE: 1-Caudal epidural steroid injection with epidurolysis and epidurogram under fluoroscopic guidance. (Fluoroscopy images available in the radiology Department ) 2-caudal epidurogram. ANESTHESIA: Local with 1% lidocaine 3 ml ,and moderate sedation, with Versed 2 mg and fentanyl 200 g. EBL: Minimal. PROCEDURE INDICATION: The patient with post-laminectomy syndrome with low back pain and radiculopathy radiating down in both legs, here for a caudal epidural steroid injection with epidurolysis. PROCEDURE DESCRIPTION: The patient was seen and identified in the preoperative area. Risks, benefits, complications, and alternatives were discussed with the patient. The patient agreed to proceed with the procedure and signed the consent. IV was started, and vital signs were stable. Patient was taken to the OR and time out was completed. The patient was placed in the prone position on procedure table and a pillow was placed under the abdomen to reduce lumbar lordosis. The lumbosacral area was prepped and draped in the usual sterile fashion. Vital signs were closely monitored during the procedure. lateral view and the anterior-posterior plates of the sacrum were identified with infiltration of the area overlying the sacral hiatus with 1% lidocaine .A 17 gauge RK epidural needle was used to advance through the sacral hiatus into the caudal epidural space. Omnipaque 180 dye. 2cc was injected and the position of the needle was verified to be in the midline. A Racz catheter was introduced into the epidural space and was advanced towards the L5-S1 interspace under direct fluoroscopic guidance. Multiple passes were made with the catheter for lysis of epidural adhesions. Depo-Medrol 80 mg with 3ml of preservative free Lidocaine 1% and 5 ml of preservative free normal saline was injected slowly. Additional spread was seen to L4 under fluoroscopy. The needle and the catheter were withdrawn intact. EPIDUROGRAM: Omnipaque 180 mg dye 2 ml was injected with spread of the dye into the caudal epidural space and with spread cutoff at L5 prior to epidurolysis. Post epidurolysis dye 2 ml was injected and spread was seen to L3-4.There was further spread of the solution together with the dye above the L3 COMPLICATIONS: None. DISPOSITION / PLANS: The patient was placed in a supine position and transferred to the recovery area in a stable condition for observation and was discharged from the recovery room after meeting discharge criteria. Home discharge instructions given to the patient by the staff. The patient was reexamined prior to discharge. The patient will schedule a follow up in the clinic in 2-4 weeks.
--- NOTE | 2019-07-25 11:15 | P.PAINCN ---
History of Present Illness - Reason for Consult Consult date: 07/24/19 Requesting physician: Love Sanders - Chief Complaint Intractable low back pain - History of Present Illness Patient is a 64-year-old female who is seen and examined the bedside for further evaluation for intractable low back pain and difficulty ambulation. She is known have previously undergone lumbosacral fusion performed in approximately [address] Stanley in [place], [place]. She was doing fairly well overall with management of her pain through pain management and had been seen in our clinic until 2016, when she was discharged from our clinic due to non-concurrent urine drug screens. In the past, in addition to medication management, she had under gone caudal epidural steroid injections with lysis of adhesions with good benefit. She states over the past couple days she has had severe low back pain with pain radiating into the bilateral buttocks, and a posterior thighs, and through the calves to the heels. These symptoms are bilateral. She is having significant difficulty ambulation due to her pain. She denies any injuries or recent trauma. She states this pain is similar to what she has had in the past, but much more severe. Her pain is ongoing at all times and is exacerbated with sitting, standing, ambulation. Her pain is less severe while lying down. Patient does have a medical history which includes fibromyalgia, hypertension, seizure disorder, and asthma. X-rays the lumbar spine and lumbar CT were taken during her presentation to the emergency department. Review of Systems Review of systems is negative for chest pain, shortness of breath, new onset weakness, numbness/tingling, abdominal pain, malaise, fever, night sweats, chills, homicidal or suicidal ideation, or bowel or bladder incontinence. Past Medical History Past Medical History: Asthma, Fibromyalgia, Hyperlipidemia, Hypertension, Memory Impairment, Musculoskeletal Disorder, Osteoarthritis (OA), Seizure Disorder Additional Past Medical History / Comment(s): BACK PAIN, SHORT TERM MEMORY LOSS, history of lumbar spine surgery 2 at outside institutions. History of multiple treatments and procedures with interventional pain management chronically. She is on chronic high-dose oral pain medications including morphine and Percocet. with pain management. History of Any Multi-Drug Resistant Organisms: None Reported Past Surgical History: Adenoidectomy, Back Surgery, Breast Surgery, Joint Replac ement, Orthopedic Surgery, Tonsillectomy Additional Past Surgical History / Comment(s): , LT HAND SURGERY, RT GANGLION CYST REMOVED, LEEP, COLONOSCOPY, EGD, MIGUEL A. CATARACT WITH LENS IMLANTS,RT BREAST BIOPSY, 2 BACK SURGERIES- ONE WAS A LAMINECTOMY, TOTAL LEFT KNEE Past Anesthesia/Blood Transfusion Reactions: No Reported Reaction Past Psychological History: No Psychological Hx Reported Additional Psychological History / Comment(s): SHORT TERM MEMORY LOSS Smoking Status: Light tobacco smoker Past Alcohol Use History: None Reported Additional Past Alcohol Use History / Comment(s): SMOKE PIPES DAILY STARTED SMOKING AT AGE 20 Past Drug Use History: None Reported - Past Family History Brother(s) Family Medical History: Cancer Additional Family Medical History / Comment(s): PANCREATITIS Mother Family Medical History: Hypertension, Memory Impairment Additional Family Medical History / Comment(s): ALZHEIMER'S Father Family Medical History: Coronary Artery Disease (CAD) Additional Family Medical History / Comment(s): HEART PROBLEMS-HAD QUAD- CABG, ALCOHOLISM Medications and Allergies Home Medications Medication Instructions Recorded Confirmed Type Ergocalciferol [Vitamin D2] 50,000 unit PO Q7D 03/01/18 07/23/19 History Omeprazole 40 mg PO DAILY 03/01/18 07/23/19 History levETIRAcetam [Keppra] 500 mg PO BID 03/01/18 07/23/19 History cloNIDine HCL [Catapres] 0.1 mg PO DAILY 06/26/19 07/23/19 History Docusate Sodium [Dok] 100 mg PO DAILY 07/23/19 07/23/19 History Loratadine [Claritin] 10 mg PO DAILY 07/23/19 07/23/19 History Methocarbamol [Robaxin] 500 mg PO BID PRN 07/23/19 07/23/19 History Promethazine 6.25MG/5Ml [Phenergan 12.5 mg PO QID PRN 07/23/19 07/23/19 History Syrup] hydrOXYzine HCL 25 mg PO BID 07/23/19 07/23/19 History predniSONE 50 mg PO DAILY #4 tab 07/23/19 Rx predniSONE See Taper PO DIRECTED 07/23/19 07/23/19 History risperiDONE [RisperDAL] 1 mg PO DAILY 07/23/19 07/23/19 History risperiDONE [RisperDAL] 2 mg PO HS 07/23/19 07/23/19 History traZODone HCL [Desyrel] 25 mg PO HS 07/23/19 07/23/19 History Allergies Allergy/AdvReac Type Severity Reaction Status Date / Time nitrofurantoin AdvReac Abdominal Verified 07/23/19 23:18 [From Macrobid] Pain/Nausea/Vomiting NSAIDS (Non-Steroidal AdvReac Nausea & Verified 07/23/19 23:18 Anti-Inflamma Vomiting Physical Exam Vitals: Vital Signs Temp Pulse Resp BP Pulse Ox 07/25/19 05:00 98.7 F 88 18 150/82 92 L 07/25/19 01:29 147/80 07/24/19 23:00 99.3 F 66 18 186/97 94 L 07/24/19 15:35 16 07/24/19 14:15 98.3 F 68 16 178/74 96 Intake and Output 07/24/19 07/25/19 07/25/19 22:59 06:59 14:59 Intake Total 300 100 Balance 300 100 Intake: Oral 300 100 Other: Voiding Method Bedside Commode Bedside Commode # Voids 1 2 Physical exam: GENERAL: Well appearing, in no acute distress, laying in bed PSYCH: Mood and affect is appropriate. Awake, alert, and oriented SKIN: Skin color, texture, turgor normal, no rashes or lesions HEENT: Normocephalic, atraumatic. EOM intact CV: No pedal edema RESP: Respirations are unlabored, no audible wheezing GI: Abdomen non-distended MUSCULOSKELETAL: Bilateral lower extremity strength is normal and symmetric. No atrophy or tone abnormalities are noted. Lumbar spine: Straight leg raising in the supine position is positive for radicular pain on the left side. Extreme tenderness to palpation over the lum bar spine and paraspinous muscles bilaterally. Extremities: Peripheral joint ROM is full and pain free without obvious instability or laxity in all four extremities. No edema or skin discolorations noted. NEUR: Bilateral lower extremity coordination and muscle stretch reflexes are physiologic and symmetric. Negative clonus bilaterally. No loss of sensation is noted. Results Results: Results Pertinent studies: CT of the lumbar spine taken on 07/23/2019: Evidence of rods, screws, and interbody devices at L5-S1 which appears in good alignment and good position; L4-5 mild degenerative spondylolisthesis; multilevel lumbar facet hypertrophy; apparent L4-5 laminectomy defect; no evidence of significant spinal canal stenosis; imaging appears stable as compared to previous CT taken on 09/06/2017 X-rays of the lumbar spine taken on 07/23/2019: Rods and screws and interbody device appear to be in good alignment of position at L5-S1; no evidence of compression fracture deformity; laminectomy defect at L4 and L5; degenerative disc disease throughout the lumbar spine CBC & Chem 7: 07/23/19 19:03 07/23/19 19:03 Assessment and Plan Plan: Assessment: Assessment: Failed back surgery syndrome Intractable low back pain Difficulty in ambulation due to pain Bilateral lower extremity radiculitis L4-5 spondylolisthesis Lumbar facet spondylosis Laminectomy defect L4 and L5 History which includes fibromyalgia, hypertension, seizure disorder, and asthma Plan: Plan: 1. Since patient has had significant benefit from prior caudal epidural steroid injection with lysis of adhesions, we will perform that tomorrow. Hold heparin and nothing by mouth midnight. 2. I had a lengthy discussion with patient regarding prior discharge from pain clinic and explained to her in explicit terms that we would not be prescribing opioids for her. She expressed understanding. 3. Maximize adjuvant medications including scheduled Tylenol 1 g every 8 and ibuprofen 800 mg 3 times a day. PQRS Measure Charge Sheet PQRS Narrative: Smoking Status Light tobacco smoker Narcotic Agreement Date Signed 11/21/12 Blood Pressure [Left Arm 150/82 Supine] Blood Pressure 190/83 Pain Intensity [Back] 9 Pain Intensity 9 Pain Scale Used Numeric (1 - 10) Scale Used Non Verbal Pain Indicator Hx Alcohol Use (MH) No Home Medications: Ambulatory Orders Ergocalciferol [Vitamin D2] 50,000 unit PO Q7D 03/01/18 Omeprazole 40 mg PO DAILY 03/01/18 levETIRAcetam [Keppra] 500 mg PO BID 03/01/18 cloNIDine HCL [Catapres] 0.1 mg PO DAILY 06/26/19 Docusate Sodium [Dok] 100 mg PO DAILY 07/23/19 Loratadine [Claritin] 10 mg PO DAILY 07/23/19 Methocarbamol [Robaxin] 500 mg PO BID PRN 07/23/19 Promethazine 6.25MG/5Ml [Phenergan Syrup] 12.5 mg PO QID PRN 07/23/19 hydrOXYzine HCL 25 mg PO BID 07/23/19 predniSONE 50 mg PO DAILY #4 tab 07/23/19 predniSONE See Taper PO DIRECTED 07/23/19 risperiDONE [RisperDAL] 1 mg PO DAILY 07/23/19 risperiDONE [RisperDAL] 2 mg PO HS 07/23/19 traZODone HCL [Desyrel] 25 mg PO HS 07/23/19
--- NOTE | 2019-07-25 11:41 | FL ---
Fluoroscopy INDICATION: Pain FINDINGS: Fluoroscopy time: 8 seconds. Images obtained: 4. IMPRESSIONS: 1. Documentation of fluoroscopy.
[2019-07-25] MEDS: HEPARIN SODIUM,PORCINE 5,000 UNIT/ML 1 ML VIAL SQ SCH (17:00)
[2019-07-25] MEDS: risperiDONE 2 MG TAB PO SCH ×2 (21:06→21:11)
--- NOTE | 2019-07-26 00:20 | P.PN ---
Subjective Progress Note Date: 07/25/19 Principal diagnosis: Patient is a 64-year-old female came in with complaints of back pain in the paraspinal area with paresthesias going to the right gluteal region down the legs when I asked patient is comparing of tingling and numbness in both legs, and also weakness although upon exam patient does have good strength in both legs patient states she is unable to stand up because of severe pain patient had a CAT scan of the back which did not show any significant acute changes except for chronic degenerative changes and spondylolisthesis in the lumbar spine area. Back surgery was consult and the patient was started on multiple medications for pain including Dilaudid. Dilaudid was discontinued and patient was started on tramadol. Patient states she cannot tolerate Toradol because of for gastritis. She denied any fever chills patient denied any. Denied any zach-anal saddle anesthesia. Patient doesn't use any IV drugs is no evidence of any epidural abscess at this time. 07/25/2019 Patient is sitting up at the side of the bed with severe back pain and attempting to get up to the commode with two person assist. Physical therapy is at the bedside assisting. Patient is complaining of severe lower back pain that is making her unable to get up and walk. Patient was seen by pain management and it was recommended to have an MRI as well as an LP which is scheduled for this afternoon. Patient denies any chest pain, shortness of breath, or palpitations at this time. Patient is afebrile. Patient does have a brief on as she states sometimes she is unable to make it to the commode due to the severe pain. Patient had risperdal on her home medication list that was reconciled in the ER and has been refusing them stating "I don't take those". They will be discontinu ed. Objective - Vital Signs Vital signs: Vital Signs Temp 97.2 F L 07/25/19 14:35 Pulse 61 07/25/19 14:35 Resp 16 07/25/19 14:35 BP 170/103 07/25/19 14:35 Pulse Ox 97 07/25/19 14:35 Intake & Output 07/25/19 07/25/19 07/26/19 06:59 18:59 06:59 Intake Total 400 100 Balance 400 100 Intake: IV 100 Oral 400 Other: Voiding Method Bedside Commode Bedside Commode # Voids 2 3 # Bowel Movements 0 - Exam GENERAL: The patient is alert and oriented x3, in mild acute distress. Well developed, well nourished. HEENT: Pupils are round and equally reacting to light. EOMI. No scleral icterus. No conjunctival pallor. Normocephalic, atraumatic. No pharyngeal erythema. No thyromegaly. CARDIOVASCULAR: S1 and S2 present. No murmurs, rubs, or gallops. PULMONARY: Chest is clear to auscultation, no wheezing or crackles. ABDOMEN: Soft, nontender, nondistended, normoactive bowel sounds. No palpable organomegaly. MUSCULOSKELETAL: Deferred to orthopedic surgery EXTREMITIES: No cyanosis, clubbing, or pedal edema. NEUROLOGICAL: Gross neurological examination did not reveal any focal deficits. SKIN: No rashes. - Labs CBC & Chem 7: 07/23/19 19:03 07/23/19 19:03 Assessment and Plan Assessment: -Back pain which appears to be chronic and worsening back pain: Pain management as mentioned above we'll try to avoid opiates. Orthopedic surgery was consulted will await the recommendations. Physical therapy and occupational therapy consultation. There is no evidence of an abscess or fracture. Patient is scheduled for an MRI and LP this afternoon -Fibromyalgia -asthma without any acute exacerbation -Hypertension -Seizure disorder continue with Keppra. -Gastroesophageal reflux disease For above-mentioned chronic medical problems patient will be resumed and continued on appropriate home medications
[2019-07-26] MEDS: HEPARIN SODIUM,PORCINE 5,000 UNIT/ML 1 ML VIAL SQ SCH ×4 (02:00→23:43)
[2019-07-26] MEDS: levETIRAcetam 500 MG TAB PO SCH ×2 (07:11→22:03)
[2019-07-26] MEDS: FAMOTIDINE 20 MG TAB PO SCH (07:11)
[2019-07-26] MEDS: PANTOPRAZOLE 40 MG TABLET PO SCH (07:11)
[2019-07-26] MEDS: LORATADINE 10 MG TAB PO SCH (07:11)
[2019-07-26] MEDS: DOCUSATE 100 MG CAP PO SCH (07:12)
[2019-07-26] MEDS: hydrOXYzine HCL 25 MG TAB PO SCH ×2 (07:12→22:03)
[2019-07-26] MEDS: traMADol 50 MG TAB PO SCH ×4 (09:01→22:03)
[2019-07-26] MEDS ORDERED: HYDROmorphone 1 MG/ML 1 ML SYRINGE IVP STA (15:03)
--- NOTE | 2019-07-26 15:11 | P.PN ---
Subjective Progress Note Date: 07/26/19 Principal diagnosis: Patient is a 64-year-old female came in with complaints of back pain in the paraspinal area with paresthesias going to the right gluteal region down the legs when I asked patient is comparing of tingling and numbness in both legs, and also weakness although upon exam patient does have good strength in both legs patient states she is unable to stand up because of severe pain patient had a CAT scan of the back which did not show any significant acute changes except for chronic degenerative changes and spondylolisthesis in the lumbar spine area. Back surgery was consult and the patient was started on multiple medications for pain including Dilaudid. Dilaudid was discontinued and patient was started on tramadol. Patient states she cannot tolerate Toradol because of for gastritis. She denied any fever chills patient denied any. Denied any zach-anal saddle anesthesia. Patient doesn't use any IV drugs is no evidence of any epidural abscess at this time. 07/25/2019 Patient is sitting up at the side of the bed with severe back pain and attempting to get up to the commode with two person assist. Physical therapy is at the bedside assisting. Patient is complaining of severe lower back pain that is making her unable to get up and walk. Patient was seen by pain management and it was recommended to have an MRI as well as an LP which is scheduled for this afternoon. Patient denies any chest pain, shortness of breath, or palpitations at this time. Patient is afebrile. Patient does have a brief on as she states sometimes she is unable to make it to the commode due to the severe pain. Patient had risperdal on her home medication list that was reconciled in the ER and has been refusing them stating "I don't take those". They will be discontinu ed. 07/26/2019 Patient is up walking with her walker with physical therapy today. Patient was able to walk approximately 4 feet and back to bed with minimum assist. Patient underwent fluoroscopic caudal epidural steroid injection from pain management yesterday. Patient refused MRI yesterday she is unable to lie flat long enough to have MRI done. Discussed with the patient at length today about needing that MRI for assistance and her treatment plan and she stated "people should be more compassionate and provide better pain control so that someone can get an MRI done." A one-time dose of Dilaudid will be ordered prior to the MRI. Patient continues to be very upset about how she feels her pain is being managed properly and she wants more pain medications. Discussed with the patient at length about proper pain management and that multiple medical consultants are following to help her with this chronic pain. Case management is following for possible placement as she lives alone and has no assistance at home and is unable to walk on her own to care for herself. Patient denies any chest pain, shortness of breath, or palpitations at this time. Patient is afebrile. Patient denies any nausea or vomiting and has been tolerating diet. Objective - Vital Signs Vital signs: Vital Signs Temp 98.0 F 07/26/19 13:30 Pulse 82 07/26/19 13:30 Resp 16 07/26/19 13:30 BP 143/74 07/26/19 13:30 Pulse Ox 94 L 07/26/19 13:30 Intake & Output 07/25/19 07/26/19 07/26/19 18:59 06:59 18:59 Intake Total 100 200 Balance 100 200 Intake: IV 100 Oral 200 Other: Voiding Method Bedside Commode Bedside Commode # Voids 3 1 # Bowel Movements 0 - Exam GENERAL: The patient is alert and oriented x3, in mild acute distress due to her chronic back pain. Well developed, well nourished. HEENT: Pupils are round and equally reacting to light. EOMI. No scleral icterus. No conjunctival pallor. Normocephalic, atraumatic. No pharyngeal erythema. No thyromegaly. CARDIOVASCULAR: S1 and S2 present. No murmurs, rubs, or gallops. PULMONARY: Chest is clear to auscultation, no wheezing or crackles. ABDOMEN: Soft, nontender, nondistended, normoactive bowel sounds. No palpable organomegaly. MUSCULOSKELETAL: Deferred to orthopedic surgery EXTREMITIES: No cyanosis, clubbing, or pedal edema. NEUROLOGICAL: Gross neurological examination did not reveal any focal deficits. SKIN: No rashes. - Labs CBC & Chem 7: 07/23/19 19:03 07/23/19 19:03 Assessment and Plan Assessment: -Back pain which appears to be chronic and worsening back pain: Pain management as mentioned above we'll try to avoid opiates. Orthopedic surgery was consulted will await the recommendations. Physical therapy and occupational therapy consultation. There is no evidence of an abscess or fracture. Patient is scheduled for an MRI and LP this afternoon. Patient underwent a caudal epidural injection and refused MRI yesterday due to inability to lay flat for the procedure. Will attempt MRI again today. A one-time dose of Dilaudid will be given prior to the MRI. -Fibromyalgia -asthma without any acute exacerbation -Hypertension -Seizure disorder continue with Keppra. -Gastroesophageal reflux disease For above-mentioned chronic medical problems patient will be resumed and continued on appropriate home medications
--- NOTE | 2019-07-26 17:16 | MR ---
EXAMINATION TYPE: MR lumbar spine wo/w con DATE OF EXAM: 07/26/2019 COMPARISON: None HISTORY: Back pain, inability ambulate, L4-5 spondylolisthesis TECHNIQUE: Multiplanar, multisequence images of the lumbar spine were acquired utilizing 7.5 mL intravenous Gada vist gadolinium contrast. Lumbar vertebra have fairly normal alignment. There is a few millimeter anterior subluxation of L4 in relation L5. There is posterior fusion surgery at L5-S1. There is degenerative disc space narrowing throughout the lumbar spine. There is no compression fracture. There is some metal artifact obscures detail at L5 and S1 level. I see no significant spinal stenosis. There is no lumbar paraspinal mass. The sacroiliac joints appear intact. IMPRESSION: Multilevel spondylotic changes. Mild degenerative first-degree L4-5 spondylolisthesis. No fracture se en. No spinal stenosis.
--- NOTE | 2019-07-26 18:07 | P.PN ---
Progress Note - Text Progress Note Date: 07/26/19 Patient is very pleasant 64-year-old female who is seen and examined the bedside for follow-up evaluation for intractable low back pain and difficulty ambulation. She feels somewhat better today but states her symptoms continue to be significant and persistent. She was able to have an MRI of the lumbar spine performed today. She is known have previously undergone lumbosacral fusion performed in approximately [address] Stanley in [place], [place]. Since her admission she's been seen and examined by pain management has undergone an injection without significant improvement in her symptoms. She is currently receiving tramadol for pain control. Pain management is not plan to prescribe other pain medications that she has been fired by multiple other medical providers due to noncompliance in regards to narcotic medication. She currently receives Suboxone and Robaxin for her primary care provider. Nursing states patient is planning to be discharged to a rehabilitation facility pending insurance approval. Patient states she continues to experience severe low back pain with pain radiating into the bilateral buttocks, and a posterior thighs, and through the calves to the heels. These symptoms are bilaterally. She is having significant difficulty ambulation due to her pain. She denies any injuries. Her pain is ongoing at all times and is exacerbated with sitting, standing, ambulation. Her pain is less severe while lying down. Patient does have a medical history which includes fibromyalgia, hypertension, seizure disorder, and asthma. Patient history: She states over the years following her lumbosacral surgery she had follow-up pain management and underwent injections along with oral medications as prescribed by pain management through [facility]. She states she later followed-up with Dr. Ghosh for treatment and evaluation and was prescribed medication by him. She states throughout her treatment she was eventually fired is a patient through multiple providers and has not been able to receive pain medications over the past year. She is well-known to our practice as she previously underwent a right hip hemiarthroplasty for right femoral neck fracture performed on 05/22/2017. She has recovered in regards to her right hip since that time without difficulty. Physical exam: Patient is awake, alert, and oriented 3 Vital signs stable Good chest excursion with deep inspiration and expiration Abdomen soft nontender Examination of lumbar spine reveals skin is intact with no abrasions, lacerations, or bruises; no erythema, purulence or signs of infection Evidence of a well-healed incision along the midline of the lower lumbar spine Significant pain with palpation over the entire lumbar spine Evidence of well-healed incisions over the right hip Dorsiflexion, plantarflexion, and extensor hallucis longus positive sustained bilaterally Lower extremity strength positive sustained throughout range of motion without significant difficulty bilaterally Patellar reflex 2+ on the right and 1+ on the left; Achilles reflexes 0+ bilaterally No lower extremity hyperreflexia bilaterally Straight leg test negative bilateral lower extremities No signs or symptoms of DVT; no calf pain No pain with internal and external rotation of the hips bilaterally Neurovascularly intact Pertinent studies: MRI lumbar spine with and without contrast taken on 07/26/2019: L4-5 mild spondylolisthesis; no evidence of vertebral body compression fracture deformity; evidence of previous lumbar fusion with hardware intact at L5-S1; degenerative disc disease throughout the lumbar spine; no evidence of significant spinal canal stenosis or neural foraminal stenosis throughout the lumbar spine; sacroiliac joints. Adequate maintained CT of the lumbar spine taken on 07/23/2019: Evidence of rods, screws, and interbody devices at L5-S1 which appears in good alignment and good position; L4-5 mild degenerative spondylolisthesis; multilevel lumbar facet hypertrophy; apparent L4-5 laminectomy defect; no evidence of significant spinal canal stenosis; imaging appears stable as compared to previous CT taken on 09/06/2017 X-rays of the lumbar spine taken on 07/23/2019: Rods and screws and interbody device appear to be in good alignment of position at L5-S1; no evidence of compression fracture deformity; laminectomy defect at L4 and L5; degenerative disc disease throughout the lumbar spine Assessment: Intractable low back pain Difficulty in ambulation due to pain Bilateral lower extremity radiculopathy L4-5 spondylolisthesis Lumbar facet spondylosis Laminectomy defect L4 and L5 History of right hemiarthroplasty for right femoral neck fracture History which includes fibromyalgia, hypertension, seizure disorder, and asthma Plan: 1. Patient has been discussed in detail with Dr. Kev Sanders. After physical examination the patient, further discussion with the patient, and reviewing of imaging, we will currently plan to continue with conservative treatment. Reviewing the lumbar MRI imaging does not show evidence of significant spinal canal stenosis or neural foraminal stenosis. Her symptoms do not correlate well with her imaging. We do not feel there are indications in which surgical intervention would provide any significant improvement of her symptoms. We wobharath chi recommend exhausting all conservative treatment options. She does take Suboxone and Robaxin the outpatient setting as prescribed by her primary care provider, Dr. Cosme. We recommend her following up with him in the outpatient setting for further medications. We are not planning to prescribe any narcotic pain medications during her admission or at the time of discharge. She will continue to follow with pain management for further treatment and evaluation may plan to undergo another injection as needed. At this time patient is clear for discharge from an orthopedic spine standpoint. We'll have her follow-up in outpatient setting on an as-needed basis. If she has exacerbation of her symptoms she will call to set up follow-up appointment. She may follow-up with Nic Oliveira PA-C or Dr. Kev Sanders at [facility]. 2. Patient will continue to be seen and examined by medicine. 3. Continue pain control medications as prescribed 4. Patient may continue to follow with pain management as needed
[2019-07-26] MEDS: CYCLOBENZAPRINE 5 MG TAB PO PRN (20:20)
[2019-07-26] MEDS: SUBOXONE PO SCH (22:08)
[2019-07-26] MEDS ORDERED: MAG HYDROX/AL HYDROX/SIMETH 30 ML CUP PO PRN (23:41)
[2019-07-27] MEDS: traMADol 50 MG TAB PO SCH ×4 (07:52→21:41)
[2019-07-27] MEDS: PANTOPRAZOLE 40 MG TABLET PO SCH (07:52)
[2019-07-27] MEDS: levETIRAcetam 500 MG TAB PO SCH ×2 (07:53→21:41)
[2019-07-27] MEDS: LORATADINE 10 MG TAB PO SCH (07:53)
[2019-07-27] MEDS: hydrOXYzine HCL 25 MG TAB PO SCH ×2 (07:53→21:41)
[2019-07-27] MEDS: DOCUSATE 100 MG CAP PO SCH (07:53)
[2019-07-27] MEDS: HEPARIN SODIUM,PORCINE 5,000 UNIT/ML 1 ML VIAL SQ SCH ×2 (07:54→15:06)
[2019-07-27] MEDS: BISACODYL 5 MG TABLET.DR PO PRN (08:07)
[2019-07-27] MEDS: SUBOXONE PO SCH ×2 (08:07→21:42)
[2019-07-27 08:27] LABS: Basophils # (A) 0.1 k/uL (0-0.2); Basophils % (A) 1 %; Eosinophils # (A) 0.3 k/uL (0-0.7); Eosinophils % (A) 4 %; HCT 44.8 % (34.0-46.0); HGB 14.2 gm/dL (11.4-16.0); Lymphocytes # (A) 2.5 k/uL (1.0-4.8); Lymphocytes % (A) 30 %; MCH 27.8 pg (25.0-35.0); MCHC 31.6 g/dL (31.0-37.0); MCV 87.9 fL (80.0-100.0); Mean Platelet Volume 6.3; Monocytes # (A) 0.6 k/uL (0-1.0); Monocytes % (A) 7 %; Neutrophils # (A) 4.5 k/uL (1.3-7.7); Neutrophils % (A) 55 %; Platelet Count 375 k/uL (150-450); RDW 13.4 % (11.5-15.5); WBC 8.1 k/uL (3.8-10.6)
[2019-07-27 08:49] LABS: African American GFR (CKD) >90 (>60 ml/min/1.73 sqM); Anion Gap 7 mmol/L; Blood Urea Nitrogen 23 mg/dL (7-17); Carbon Dioxide 29 mmol/L (22-30); Chloride 102 mmol/L (98-107); Glucose 121 mg/dL (74-99); Potassium 3.8 mmol/L (3.5-5.1); Sodium 138 mmol/L (137-145)
[2019-07-27] MEDS: CYCLOBENZAPRINE 5 MG TAB PO PRN ×2 (12:38→21:42)
--- NOTE | 2019-07-27 14:35 | P.PN ---
Subjective Progress Note Date: 07/27/19 Principal diagnosis: Patient is a 64-year-old female came in with complaints of back pain in the paraspinal area with paresthesias going to the right gluteal region down the legs when I asked patient is comparing of tingling and numbness in both legs, and also weakness although upon exam patient does have good strength in both legs patient states she is unable to stand up because of severe pain patient had a CAT scan of the back which did not show any significant acute changes except for chronic degenerative changes and spondylolisthesis in the lumbar spine area. Back surgery was consult and the patient was started on multiple medications for pain including Dilaudid. Dilaudid was discontinued and patient was started on tramadol. Patient states she cannot tolerate Toradol because of for gastritis. She denied any fever chills patient denied any. Denied any zach-anal saddle anesthesia. Patient doesn't use any IV drugs is no evidence of any epidural abscess at this time. 07/25/2019 Patient is sitting up at the side of the bed with severe back pain and attempting to get up to the commode with two person assist. Physical therapy is at the bedside assisting. Patient is complaining of severe lower back pain that is making her unable to get up and walk. Patient was seen by pain management and it was recommended to have an MRI as well as an LP which is scheduled for this afternoon. Patient denies any chest pain, shortness of breath, or palpitations at this time. Patient is afebrile. Patient does have a brief on as she states sometimes she is unable to make it to the commode due to the severe pain. Patient had risperdal on her home medication list that was reconciled in the ER and has been refusing them stating "I don't take those". They will be discontinu ed. 07/26/2019 Patient is up walking with her walker with physical therapy today. Patient was able to walk approximately 4 feet and back to bed with minimum assist. Patient underwent fluoroscopic caudal epidural steroid injection from pain management yesterday. Patient refused MRI yesterday she is unable to lie flat long enough to have MRI done. Discussed with the patient at length today about needing that MRI for assistance and her treatment plan and she stated "people should be more compassionate and provide better pain control so that someone can get an MRI done." A one-time dose of Dilaudid will be ordered prior to the MRI. Patient continues to be very upset about how she feels her pain is being managed properly and she wants more pain medications. Discussed with the patient at length about proper pain management and that multiple medical consultants are following to help her with this chronic pain. Case management is following for possible placement as she lives alone and has no assistance at home and is unable to walk on her own to care for herself. Patient denies any chest pain, shortness of breath, or palpitations at this time. Patient is afebrile. Patient denies any nausea or vomiting and has been tolerating diet. 07/27/2019 Patient is sitting up in bed in no acute distress. Patient continues to request more pain medications. Patient was resumed on her Suboxone and states that her pain is still severe in the lower back causing her to have difficulty in ambulating and moving. Patient denies any chest pain, shortness of breath, or palpitations at this time. Patient continues to work with PT/OT for strength and mobility. Patient states it is hard to even get up to go to the bathroom with the bedside commode. Will continue to monitor closely. Patient underwent MRI yesterday showing multilevel spondylitic changes with mild degenerative first-degree L4-5 spondylolisthesis with no fractures and no spinal stenosis noted. Patient is being followed by orthopedic surgery as well as pain management. Per orthopedic recommendations and plan is to continue with conservative treatment and no surgical interventions will be done at this time. She will follow-up with pain management in the outpatient setting. Objective - Vital Signs Vital signs: Vital Signs Temp 97.9 F 07/27/19 04:53 Pulse 72 07/27/19 04:53 Resp 18 07/27/19 04:53 BP 121/76 07/27/19 04:53 Pulse Ox 91 L 07/27/19 04:53 Intake & Output 07/26/19 07/27/19 07/27/19 18:59 06:59 18:59 Intake Total 650 Balance 650 Intake: Oral 650 Other: Voiding Method Bedside Commode # Voids 1 0 - Exam GENERAL: The patient is alert and oriented x3, in mild acute distress due to her chronic back pain. Well developed, well nourished. HEENT: Pupils are round and equally reacting to light. EOMI. No scleral icterus. No conjunctival pallor. Normocephalic, atraumatic. No pharyngeal erythema. No thyromegaly. CARDIOVASCULAR: S1 and S2 present. No murmurs, rubs, or gallops. PULMONARY: Chest is clear to auscultation, no wheezing or crackles. ABDOMEN: Soft, nontender, nondistended, normoactive bowel sounds. No palpable organomegaly. MUSCULOSKELETAL: Deferred to orthopedic surgery EXTREMITIES: No cyanosis, clubbing, or pedal edema. NEUROLOGICAL: Gross neurological examination did not reveal any focal deficits. SKIN: No rashes. - Labs CBC & Chem 7: 07/27/19 08:02 07/27/19 08:02 Labs: Abnormal Lab Results - Last 24 Hours (Table) 07/27/19 Range/Units 08:02 BUN 23 H (7-17) mg/dL Glucose 121 H (74-99) mg/dL Assessment and Plan Assessment: -Back pain which appears to be chronic and worsening back pain: Pain management as mentioned above we'll try to avoid opiates. Patient underwent MRI yesterday showing multilevel spondylitic changes with mild degenerative first-degree L4-5 spondylolisthesis with no fracture seen and no spinal stenosis. Per orthopedic surgery no surgical interventions will be done at this time and to continue with conservative management. Patient will follow-up with pain management in the outpatient setting. -Fibromyalgia -asthma without any acute exacerbation -Hypertension -Seizure disorder continue with Keppra. -Gastroesophageal reflux disease For above-mentioned chronic medical problems patient will be resumed and continued on appropriate home medications Recommend patient and discussion: Recommend continue current medications, management, and symptomatic treatment. Will continue to monitor closely. Per orthopedic surgery recommendations the plan is to continue with conservative management with no surgical intervention at this time. Patient will follow-up with pain management in the outpatient setting. Awaiting placement at this time for continued PT/OT therapy as patient continues to need assistance with ambulation. Patient lives alone and has no help. Case management and social research assistant following. Further recommendations to follow. Guarded prognosis. Possible discharge in 24-48 hours.
[2019-07-27] MEDS: DULoxetine HCL 30 MG CAPSULE.DR PO SCH (15:06)
[2019-07-28] MEDS: HEPARIN SODIUM,PORCINE 5,000 UNIT/ML 1 ML VIAL SQ SCH ×2 (03:29→08:25)
[2019-07-28] MEDS: DULoxetine HCL 30 MG CAPSULE.DR PO SCH (08:18)
[2019-07-28] MEDS: hydrOXYzine HCL 25 MG TAB PO SCH (08:18)
[2019-07-28] MEDS: DOCUSATE 100 MG CAP PO SCH (08:18)
[2019-07-28] MEDS: PANTOPRAZOLE 40 MG TABLET PO SCH (08:18)
[2019-07-28] MEDS: levETIRAcetam 500 MG TAB PO SCH (08:18)
[2019-07-28] MEDS: CYCLOBENZAPRINE 5 MG TAB PO PRN (08:19)
[2019-07-28] MEDS: traMADol 50 MG TAB PO SCH (08:19)
[2019-07-28] MEDS: LORATADINE 10 MG TAB PO SCH (08:19)
[2019-07-28] MEDS: SUBOXONE PO SCH (08:19)
[2019-07-28] MEDS ORDERED: HYDROcodone/APAP 7.5-325MG 1 EACH TAB PO PRN (08:49)
[2019-07-28] MEDS ORDERED: ERGOCALCIFEROL 50,000 UNIT CAP PO SCH (09:00)
--- NOTE | 2019-07-28 09:23 | P.DS ---
Providers Date of admission: 07/25/19 09:29 Expected date of discharge: 07/28/19 Attending physician: Lesly Morley Consults: 07/23/19 22:52 Consult Physician Stat Consulting Provider: Love Sanders Consult Reason/Comments: acute exacerbation of chronic back pain Do you want consulting provider notified?: Yes, Notify in am Primary care physician: Carmelina Lewis [facility] Course: Final diagnosis Back pain, chronic Fibromyalgia Asthma without any acute exacerbation Hypertension Seizure disorder Gastroesophageal reflux disease Discharge disposition Patient is being discharged in a stable condition with guarded prognosis to [facility] for continued PT/OT therapy. Patient will follow-up with primary care provider upon discharge as well as pain management as needed upon discharge. Total time taken is 35 minutes. History of present illness This is a 64-year-old female who was recently admitted for back pain that was worsening with generalized weakness and was being closely monitored. Orthopedic surgery as well as pain management were following. Patient underwent a caudal epidural steroid injection with pain management and will follow-up with them in the outpatient setting as needed in 2-3 weeks. Patient was also seen by orthopedic surgery and MRI was done showing multilevel spondylitic changes with mild degenerative first-degree L4-5 spondylolisthesis with no fractures and no spinal stenosis noted. Per orthopedic surgery no further surgical interventions will be done at this time. Patient will follow-up as needed in the outpatient setting. Currently patient's condition is stable with much improvement and will be going to an ECF today for continued PT/OT therapy due to weakness and inability to stand for long periods of time. Patient does live alone at home with no help. Patient denies any chest pain, shortness of breath, or palpitations at this time. Patient has remained afebrile. Patient denies any nausea or vomiting and has been tolerating diet. Patient did have some mild abdominal discomfort due to constipation and medications were given. Patient does take a number of narcotics daily. On exam vital signs are stable. Temp is 97.7F, pulse is 62, respirations are 16, blood pressure is 147/81, oxygen saturation is 93% on room air. Cardio S1 and S2 are heard. Respiratory system shows clear to auscultation. Abdomen is soft and nontender. Nervous system shows no focal deficits with mild diffuse weakness. Please refer to medication reconciliation sheet for a list of medications. Patient Condition at Discharge: Fair Plan - Discharge Summary Discharge Rx Participant: No New Discharge Prescriptions: New predniSONE 50 mg PO DAILY #4 tab cloNIDine 0.1 MG/24HR PATCH [Catapres-TTS] 1 patch TRANSDERM Q7D patch DULoxetine HCL [Cymbalta] 30 mg PO DAILY capsule.dr Gamezacosoledad [Dulcolax] 10 mg PO DAILY PRN tablet. PRN Reason: Constipation Cyclobenzaprine [Flexeril] 5 mg PO TID PRN #12 tab PRN Reason: Muscle Spasm Mag Hydrox/Al Hydrox/Simeth [Maalox] 30 ml PO QID PRN cup PRN Reason: Heartburn HYDROcodone/APAP 7.5-325MG [[place] 7.5-325] 1 each PO Q6H PRN #12 tab PRN Reason: Pain Pantoprazole [Protonix] 40 mg PO DAILY@0730 tablet. Acetaminophen Tab [Tylenol] 1,000 mg PO Q8HR PRN tab PRN Reason: Fever And/ Or Pain Continue levETIRAcetam [Keppra] 500 mg PO BID Ergocalciferol [Vitamin D2 (DRISDOL)] 50,000 unit PO Q7D hydrOXYzine HCL 25 mg PO BID Methocarbamol [Robaxin] 500 mg PO BID PRN PRN Reason: Pain Loratadine [Claritin] 10 mg PO DAILY Docusate Sodium [Dok] 100 mg PO DAILY Discontinued Omeprazole 40 mg PO DAILY cloNIDine HCL [Catapres] 0.1 mg PO DAILY risperiDONE [RisperDAL] 2 mg PO HS risperiDONE [RisperDAL] 1 mg PO DAILY Promethazine 6.25MG/5Ml [Phenergan Syrup] 12.5 mg PO QID PRN PRN Reason: Cough traZODone HCL [Desyrel] 25 mg PO HS predniSONE See Taper PO DIRECTED Buprenorphine HCl/Naloxone HCl [Suboxone 8 mg-2 mg Sl Film] 1 film SL BID PRN PRN Reason: Pain Control Discharge Medication List Ergocalciferol [Vitamin D2 (DRISDOL)] 50,000 unit PO Q7D 03/01/18 [History] levETIRAcetam [Keppra] 500 mg PO BID 03/01/18 [History] Docusate Sodium [Dok] 100 mg PO DAILY 07/23/19 [History] Loratadine [Claritin] 10 mg PO DAILY 07/23/19 [History] Methocarbamol [Robaxin] 500 mg PO BID PRN 07/23/19 [History] hydrOXYzine HCL 25 mg PO BID 07/23/19 [History] predniSONE 50 mg PO DAILY #4 tab 07/23/19 [Rx] Acetaminophen Tab [Tylenol] 1,000 mg PO Q8HR PRN tab 07/28/19 [Rx] Bisacodyl [Dulcolax] 10 mg PO DAILY PRN tablet. 07/28/19 [Rx] Cyclobenzaprine [Flexeril] 5 mg PO TID PRN #12 tab 07/28/19 [Rx] DULoxetine HCL [Cymbalta] 30 mg PO DAILY capsule. 07/28/19 [Rx] HYDROcodone/APAP 7.5-325MG [[place] 7.5-325] 1 each PO Q6H PRN #12 tab 07/28/19 [Rx] Mag Hydrox/Al Hydrox/Simeth [Maalox] 30 ml PO QID PRN cup 07/28/19 [Rx] Pantoprazole [Protonix] 40 mg PO DAILY@0730 tablet. 07/28/19 [Rx] cloNIDine 0.1 MG/24HR PATCH [Catapres-TTS] 1 patch TRANSDERM Q7D patch 07/28/19 [Rx] Follow up Appointment(s)/Referral(s): Aliya Cosme MD [Primary Care Provider] - 1-2 days Love Sanders DO [Doctor of Osteopathic Medicine] - As Needed (Patient may follow-up with Nic Oliveira PA-C or Dr. Kev Sanders at [facility] on an as-needed basis following discharge. ) Activity/Diet/Wound Care/Special Instructions: Patient to adhere to previously discussed treatment plan and will take medication(s) as directed. Patient to follow up with PCP in 1-2 days. Patient to return to ED if symptoms do not improve. Activity as tolerated Continue current diet Follow-up with primary care provider upon discharge Follow-up with pain management upon discharge as needed Continue working with PT/OT therapy Discharge/Stand Alone Forms: [facility] Diary, [facility] Instructions Discharge Disposition: TRANSFER TO SNF/ECF
[2019-07-28 14:10] VITALS: BP 116/75; PULSE 94; RESP 18; TEMP 98
--- NOTE | 2019-08-02 08:52 | CDI ---
Documentation Clarification Form Date: 08/02/19 From: Agata Willis Phone: If you have a question regarding this query, please contact Carmelita Martinez at [phone] between 8am and 5pm. Admit Date: 07/25/2019 9:29:00 AM Patient Name: Tova Diaz Visit Number: [id number] Discharge Date: 07/28/2019 2:12:00 PM ATTENTION: The Clinical Documentation Specialists (CDI) and [facility] Coding Staff appreciate your assistance in clarifying documentation. Please respond to the clarification below the line at the bottom and electronically sign. The CDI & [facility] Coding staff will review the response and follow-up if needed. Please note: Queries are made part of the Legal Health Record. If you have any questions, please contact the author of this message via ITS. Dr. Jaylen Roth The patients principal diagnosis has not been clearly identified and requires clarification. She presented with worsening of her chronic back pain and radiculopathy. History/Risk factors: Previous lumbar fusion with intact hardware at L5-S1, degenerative disc disease throughout the lumbar spine, L4-5 spondylolisthesis. Clinical Indicators: Worsening back pain. Radiology findings: Lumbar - Spondylotic changes. CT lumbar - Degenerative minimal L4-5 spondylolisthesis. No change compared to old CT scan. MRI Lumbar spine - Multilevel spondylotic changes. Mild degenerative first-degree L4-5 spondylolisthesis. No fracture seen. No spinal stenosis. Treatment: Caudal epidural steroid injection with epidurolysis and epidurogram. Consults: Dr. Gee documented lumbar postlaminectomy syndrome in the procedure note. Other tx. IV Dilaudid, IV Toradol, IV and IM Morphine In your professional opinion, can you please clarify which diagnosis, after study, accounted for the patients presenting symptoms and was the reason chiefly responsible for the admission? Postlaminectomy syndrome Degenerative Disc Disease Other (please specify): Unable to determine L4 5 spondylolisthesis MTDD
== END 2019-07-28 14:12 | DRG 520 ==
LOC: EC 15:05 → 4MS4W 22:47 → OBSVTOIN 07-25 09:29
PROVIDERS: ADMIT Hospitalist; ATTEND Hospitalist
PROC: 3E0R33Z Introduction of Anti-inflammatory into Spinal Canal, Percutaneous Approach (ICD-10-PCS; 2019-07-25)
PROC: 3E0R3BZ Introduction of Anesthetic Agent into Spinal Canal, Percutaneous Approach (ICD-10-PCS; 2019-07-25)
PROC: B01BZZZ Fluoroscopy of Spinal Cord (ICD-10-PCS; 2019-07-25)
PROC: 00NY3ZZ Release Lumbar Spinal Cord, Percutaneous Approach (ICD-10-PCS; principal; 2019-07-25 11:00)
DX: M43.16 Spondylolisthesis, lumbar region (principal); M96.1 Postlaminectomy syndrome, not elsewhere classified; M54.9 Dorsalgia, unspecified; E78.5 Hyperlipidemia, unspecified; F17.290 Nicotine dependence, other tobacco product, uncomplicated; G40.909 Epilepsy, unspecified, not intractable, without status epilepticus; G89.29 Other chronic pain; I10 Essential (primary) hypertension; J45.909 Unspecified asthma, uncomplicated; K21.9 Gastro-esophageal reflux disease without esophagitis; K59.00 Constipation, unspecified; M79.7 Fibromyalgia; M19.90 Unspecified osteoarthritis, unspecified site; R26.2 Difficulty in walking, not elsewhere classified; M51.16 Intervertebral disc disorders with radiculopathy, lumbar region; M47.26 Other spondylosis with radiculopathy, lumbar region; T40.605A Adverse effect of unspecified narcotics, initial encounter; R61 Generalized hyperhidrosis; M46.96 Unspecified inflammatory spondylopathy, lumbar region; Z79.899 Other long term (current) drug therapy; Z79.52 Long term (current) use of systemic steroids; Z79.891 Long term (current) use of opiate analgesic; Z88.6 Allergy status to analgesic agent; Z88.1 Allergy status to other antibiotic agents; Z98.1 Arthrodesis status; Z96.652 Presence of left artificial knee joint; Z96.641 Presence of right artificial hip joint; Z90.49 Acquired absence of other specified parts of digestive tract; Z98.42 Cataract extraction status, left eye; Z98.41 Cataract extraction status, right eye; Z96.1 Presence of intraocular lens; Z82.0 Family history of epilepsy and other diseases of the nervous system; Z82.49 Family history of ischemic heart disease and other diseases of the circulatory system; Z81.1 Family history of alcohol abuse and dependence; Z80.8 Family history of malignant neoplasm of other organs or systems
CPT/HCPCS: 36415; 62264; 71046; 72100; 72131; 72158; 74177; 80048; 80053; 81003; 84484; 85025; 93005; 96361; 96372; 96374; 96375; 99152; 99285

== ENCOUNTER 2019-08-29 23:54 | Emergency (ER) | payer MEDICARE, OTHER ==
[2019-08-30 00:01] VITALS: TEMP 97.8
[2019-08-30] MEDS ORDERED: diphenhydrAMINE 50 MG/ML 1 ML VIAL IVP STA (00:29)
[2019-08-30] MEDS ORDERED: METOCLOPRAMIDE 5 MG/ML 2 ML VIAL IVP STA (00:29)
[2019-08-30] MEDS ORDERED: MORPHINE SULFATE 4 MG/ML SYRINGE IV STA (00:29)
[2019-08-30] MEDS ORDERED: SODIUM CHLORIDE 0.9% 1,000 ML IV STA (00:29)
[2019-08-30 00:53] LABS: ALT 20 U/L (9-52); AST 19 U/L (14-36); African American GFR (CKD) >90 (>60 ml/min/1.73 sqM); Albumin 3.9 g/dL (3.5-5.0); Alkaline Phosphatase 160 U/L (38-126); Amylase 53 U/L (30-110); Anion Gap 11 mmol/L; Blood Urea Nitrogen 11 mg/dL (7-17); Calcium 9.3 mg/dL (8.4-10.2); Carbon Dioxide 23 mmol/L (22-30); Chloride 103 mmol/L (98-107); Glucose 168 mg/dL (74-99); Magnesium 1.9 mg/dL (1.6-2.3); Potassium 3.6 mmol/L (3.5-5.1); Sodium 137 mmol/L (137-145); Total Bilirubin 0.6 mg/dL (0.2-1.3); Total Protein 6.6 g/dL (6.3-8.2)
[2019-08-30 00:59] LABS: HCT 43.7 % (34.0-46.0); HGB 14.7 gm/dL (11.4-16.0); MCH 28.5 pg (25.0-35.0); MCHC 33.7 g/dL (31.0-37.0); MCV 84.6 fL (80.0-100.0); Mean Platelet Volume 6.5; Partial Thromboplastin Time 28.2 sec (22.0-30.0); Platelet Count 388 k/uL (150-450); Prothrombin Time 10.3 sec (9.0-12.0); RBC 5.17 m/uL (3.80-5.40); RDW 14.1 % (11.5-15.5); WBC 5.3 k/uL (3.8-10.6)
[2019-08-30] MEDS ORDERED: DICYCLOMINE 10 MG CAP PO STA (01:37)
[2019-08-30] MEDS ORDERED: PANTOPRAZOLE 40 MG/10 ML VIAL IVP STA (01:37)
[2019-08-30] MEDS ORDERED: PROMETHAZINE INJ 25 MG in SODIUM CHLORIDE 0.9% 50 ML IVPB STA (02:46)
--- NOTE | 2019-08-30 03:13 | ED ---
General Adult HPI - General Chief complaint: Nausea/Vomiting/Diarrhea Stated complaint: Nausea, vomiting Time Seen by Provider: 08/30/19 00:13 Source: patient, EMS Mode of arrival: EMS Limitations: no limitations - History of Present Illness Initial comments: Patient is 64-year-old female presenting to the emergency department with a chief complaint of nausea or vomiting and back pain. Patient reports that she is currently on Suboxone therapy but has ran out of medication as she is unable to go to her primary care, Dr. Reyes. Patient reports most of her pain is located in the lumbosacral region with pain radiating along the posterior aspect of the left lower extremity. Patient reports the pain is exacerbated with any movement. Patient reports due to the pain she has developed nausea with several episodes of vomiting for the past 2 days. Patient also reports over the last few days she developed chest pain that comes and goes, although it is very mild. Patient reports she is not taking her Suboxone for the last 2 days. Patient believes she is going through withdrawal. She is also complaining of some epigastric tenderness although she states that is due to her vomiting. Patient denies saddle anesthesia, urinary or bowel incontinence. - Related Data Home Medications Medication Instructions Recorded Confirmed Ergocalciferol [Vitamin D2 50,000 unit PO Q7D 03/01/18 07/23/19 (JOSE FRANCISCO)] levETIRAcetam [Keppra] 500 mg PO BID 03/01/18 07/23/19 Docusate Sodium [Dok] 100 mg PO DAILY 07/23/19 07/23/19 Loratadine [Claritin] 10 mg PO DAILY 07/23/19 07/23/19 Methocarbamol [Robaxin] 500 mg PO BID PRN 07/23/19 07/23/19 hydrOXYzine HCL 25 mg PO BID 07/23/19 07/23/19 Previous Rx's Medication Instructions Recorded predniSONE 50 mg PO DAILY #4 tab 07/23/19 Acetaminophen Tab [Tylenol] 1,000 mg PO Q8HR PRN tab 07/28/19 Bisacodyl [Dulcolax] 10 mg PO DAILY PRN tablet. 07/28/19 Cyclobenzaprine [Flexeril] 5 mg PO TID PRN #12 tab 07/28/19 DULoxetine HCL [Cymbalta] 30 mg PO DAILY capsule. 07/28/19 HYDROcodone/APAP 7.5-325MG [[place] 1 each PO Q6H PRN #12 tab 07/28/19 7.5-325] Mag Hydrox/Al Hydrox/Simeth 30 ml PO QID PRN cup 07/28/19 [Maalox] Pantoprazole [Protonix] 40 mg PO DAILY@0730 tablet. 07/28/19 cloNIDine 0.1 MG/24HR PATCH 1 patch TRANSDERM Q7D patch 07/28/19 [Catapres-TTS] Allergies Allergy/AdvReac Type Severity Reaction Status Date / Time nitrofurantoin AdvReac Abdominal Verified 08/30/19 00:02 [From Macrobid] Pain/Nausea/Vomiting NSAIDS (Non-Steroidal AdvReac Nausea & Verified 08/30/19 00:02 Anti-Inflamma Vomiting Review of Systems ROS Statement: Those systems with pertinent positive or pertinent negative responses have been documented in the HPI. ROS Other: All systems not noted in ROS Statement are negative. Past Medical History Past Medical History: Asthma, Fibromyalgia, Hyperlipidemia, Hypertension, Memory Impairment, Musculoskeletal Disorder, Osteoarthritis (OA), Seizure Disorder Additional Past Medical History / Comment(s): BACK PAIN, SHORT TERM MEMORY LOSS, history of lumbar spine surgery 2 at outside institutions. History of multiple treatments and procedures with interventional pain management chronically. She is on chronic high-dose oral pain medications including morphine and Percocet. with pain management. History of Any Multi-Drug Resistant Organisms: None Reported Past Surgical History: Adenoidectomy, Back Surgery, Breast Surgery, Joint Replacement, Orthopedic Surgery, Tonsillectomy Additional Past Surgical History / Comment(s): , LT HAND SURGERY, RT GANGLION CYST REMOVED, LEEP, COLONOSCOPY, EGD, MIGUEL A. CATARACT WITH LENS IMLANTS,RT BREAST BIOPSY, 2 BACK SURGERIES- ONE WAS A LAMINECTOMY, TOTAL LEFT KNEE Past Anesthesia/Blood Transfusion Reactions: No Reported Reaction Past Psychological History: No Psychological Hx Reported Smoking Status: Light tobacco smoker Past Alcohol Use History: None Reported Past Drug Use History: None Reported - Past Family History Brother(s) Family Medical History: Cancer Additional Family Medical History / Comment(s): PANCREATITIS Mother Family Medical History: Hypertension, Memory Impairment Additional Family Medical History / Comment(s): ALZHEIMER'S Father Family Medical History: Coronary Artery Disease (CAD) Additional Family Medical History / Comment(s): HEART PROBLEMS-HAD QUAD- CABG, ALCOHOLISM General Exam Limitations: no limitations General appearance: alert, in no apparent distress Head exam: Present: atraumatic, normocephalic, normal inspection Eye exam: Present: normal appearance, PERRL, EOMI Pupils: Present: normal accommodation ENT exam: Present: normal exam, normal oropharynx, mucous membranes moist, TM's normal bilaterally, normal external ear exam Neck exam: Present: normal inspection, full ROM Respiratory exam: Present: normal lung sounds bilaterally Cardiovascular Exam: Present: regular rate, normal rhythm, normal heart sounds GI/Abdominal exam: Present: soft, tenderness (Mild epigastric pain. Negative Deluca sign, negative McBurney point tenderness, negative Rovsing, negative obturator.), normal bowel sounds. Absent: guarding, rebound Extremities exam: Present: normal inspection, full ROM Back exam: Present: normal inspection, tenderness (Lumbosacral region tenderness), muscle spasm, paraspinal tenderness (Left paraspinal). Absent: full ROM (Limited range of motion due to pain.), CVA tenderness (R), CVA tenderness (L), vertebral tenderness, rash noted Neurological exam: Present: alert, oriented X3 Psychiatric exam: Present: normal affect, normal mood Skin exam: Present: warm, intact, normal color Course Vital Signs 08/29/19 08/30/19 08/30/19 23:57 00:45 02:01 Temperature 97.8 F Pulse Rate 60 64 62 Respiratory 18 18 19 Rate Blood Pressure 169/105 190/87 188/84 O2 Sat by Pulse 97 98 98 Oximetry EKG Findings - EKG Comments: EKG Findings:: Sinus rhythm with PAC. QT prolongation. Heri regular rate 62, PA interval 152, QRS duration 90, QT/QTC 488/495 Medical Decision Making - Medical Decision Making Patient is a 64-year-old female presenting to the emergency department with a chief complaint of nausea vomiting abdominal pain. Patient is exhibiting drug- seeking behavior. Patient is requesting analgesia. I suspect the patient is going through some withdrawals considering she is not taking her Suboxone thera py. Physical examination is indicative of a positive leg raise test. Considering the patient has been having ongoing chest pain for the past 3 days cardiac workup was initiated. EKG is indicative prolonged QT. Initial troponins are negative. Rest of laboratory work is negative. Patient was given analgesia and Reglan with Benadryl. Patient reports improvement in her symptoms however she still has mild patient was also given Protonix and Bentyl. Patient was advised to stay in for observation. Patient reports she wants to go home as long as her nausea and pain is under control. Patient advised to follow-up with Dr Reyes. Strict return parameters were thoroughly discussed patient was understanding and agreeable. Case discussed physician. - Lab Data Result diagrams: 08/30/19 00:03 08/30/19 00:03 Lab Results 08/30/19 08/30/19 08/30/19 Range/Units 00:03 00:03 00:03 WBC 5.3 (3.8-10.6) k/uL RBC 5.17 (3.80-5.40) m/uL Hgb 14.7 (11.4-16.0) gm/dL Hct 43.7 (34.0-46.0) % MCV 84.6 (80.0-100.0) fL MCH 28.5 (25.0-35.0) pg MCHC 33.7 (31.0-37.0) g/dL RDW 14.1 (11.5-15.5) % Plt Count 388 (150-450) k/uL PT 10.3 (9.0-12.0) sec INR 1.0 (<1.2) APTT 28.2 (22.0-30.0) sec Sodium 137 (137-145) mmol/L Potassium 3.6 (3.5-5.1) mmol/L Chloride 103 (98-107) mmol/L Carbon Dioxide 23 (22-30) mmol/L Anion Gap 11 mmol/L BUN 11 (7-17) mg/dL Creatinine 0.59 (0.52-1.04) mg/dL Est GFR (CKD-EPI)AfAm >90 (>60 ml/min/1.73 sqM) Est GFR (CKD-EPI)NonAf >90 (>60 ml/min/1.73 sqM) Glucose 168 H (74-99) mg/dL Calcium 9.3 (8.4-10.2) mg/dL Magnesium 1.9 (1.6-2.3) mg/dL Total Bilirubin 0.6 (0.2-1.3) mg/dL AST 19 (14-36) U/L ALT 20 (9-52) U/L Alkaline Phosphatase 160 H (38-126) U/L Troponin I (0.000-0.034) ng/mL Total Protein 6.6 (6.3-8.2) g/dL Albumin 3.9 (3.5-5.0) g/dL Amylase 53 (30-110) U/L Lipase 34 (23-300) U/L 08/30/19 Range/Units 00:03 WBC (3.8-10.6) k/uL RBC (3.80-5.40) m/uL Hgb (11.4-16.0) gm/dL Hct (34.0-46.0) % MCV (80.0-100.0) fL MCH (25.0-35.0) pg MCHC (31.0-37.0) g/dL RDW (11.5-15.5) % Plt Count (150-450) k/uL PT (9.0-12.0) sec INR (<1.2) APTT (22.0-30.0) sec Sodium (137-145) mmol/L Potassium (3.5-5.1) mmol/L Chloride (98-107) mmol/L Carbon Dioxide (22-30) mmol/L Anion Gap mmol/L BUN (7-17) mg/dL Creatinine (0.52-1.04) mg/dL Est GFR (CKD-EPI)AfAm (>60 ml/min/1.73 sqM) Est GFR (CKD-EPI)NonAf (>60 ml/min/1.73 sqM) Glucose (74-99) mg/dL Calcium (8.4-10.2) mg/dL Magnesium (1.6-2.3) mg/dL Total Bilirubin (0.2-1.3) mg/dL AST (14-36) U/L ALT (9-52) U/L Alkaline Phosphatase (38-126) U/L Troponin I <0.012 (0.000-0.034) ng/mL Total Protein (6.3-8.2) g/dL Albumin (3.5-5.0) g/dL Amylase (30-110) U/L Lipase (23-300) U/L Disposition Clinical Impression: Nausea & vomiting, Mechanical low back pain Disposition: HOME SELF-CARE Condition: Stable Instructions (If sedation given, give patient instructions): Acute Nausea and Vomiting (ED) Additional Instructions: Please follow up with primary care. Please return to emergency department if symptoms worsen. Is patient prescribed a controlled substance at d/c from ED?: No Referrals: Aliya Cosme MD [Primary Care Provider] - 1-2 days Time of Disposition: 03:36
[2019-08-30] MEDS ORDERED: MORPHINE SULFATE 4 MG/ML SYRINGE IVP STA (03:20)
[2019-08-30 04:05] VITALS: BP 147/78; PULSE 87; RESP 18
== END 2019-08-30 04:04 | disposition home or self-care (01) ==
LOC: EC 23:54
DX: R11.2 Nausea with vomiting, unspecified (principal); M54.5 Low back pain; R94.31 Abnormal electrocardiogram [ECG] [EKG]; R07.9 Chest pain, unspecified; R10.13 Epigastric pain; G40.909 Epilepsy, unspecified, not intractable, without status epilepticus; G89.29 Other chronic pain; M79.7 Fibromyalgia; E78.5 Hyperlipidemia, unspecified; I10 Essential (primary) hypertension; M19.90 Unspecified osteoarthritis, unspecified site; F17.210 Nicotine dependence, cigarettes, uncomplicated; Z79.899 Other long term (current) drug therapy; Z88.1 Allergy status to other antibiotic agents; Z88.6 Allergy status to analgesic agent; Z96.652 Presence of left artificial knee joint; Z82.49 Family history of ischemic heart disease and other diseases of the circulatory system
CPT/HCPCS: 36415; 93005; 80053; 82150; 83690; 83735; 84484; 85027; 85610; 85730; 99285; 96365; 96375 ×4; 96376; 96361; J2270; J1200; J2550; J2765; C9113

== ENCOUNTER 2019-09-03 14:31 | Emergency (ER) | payer MEDICARE ==
[2019-09-03] MEDS ORDERED: SODIUM CHLORIDE 0.9% 1,000 ML IV STA (14:52)
[2019-09-03] MEDS ORDERED: METOCLOPRAMIDE 5 MG/ML 2 ML VIAL IVP STA (14:52)
[2019-09-03] MEDS ORDERED: PANTOPRAZOLE 40 MG/10 ML VIAL IVP STA (14:52)
[2019-09-03] MEDS: ACETAMINOPHEN TAB 500 MG TAB PO STA ×2 (15:09→15:16)
[2019-09-03] MEDS: DICYCLOMINE 20 MG TAB PO STA ×2 (15:09→15:16)
[2019-09-03 15:14] LABS: Basophils % (A) 1 %; Eosinophils # (A) 0.1 k/uL (0-0.7); Eosinophils % (A) 1 %; HGB 15.8 gm/dL (11.4-16.0); Lymphocytes # (A) 1.5 k/uL (1.0-4.8); Lymphocytes % (A) 18 %; MCH 29.3 pg (25.0-35.0); MCHC 34.4 g/dL (31.0-37.0); MCV 84.9 fL (80.0-100.0); Monocytes # (A) 0.4 k/uL (0-1.0); Monocytes % (A) 4 %; Neutrophils # (A) 6.2 k/uL (1.3-7.7); Neutrophils % (A) 74 %; Platelet Count 360 k/uL (150-450); RBC 5.42 m/uL (3.80-5.40); RDW 14.2 % (11.5-15.5); WBC 8.3 k/uL (3.8-10.6)
[2019-09-03] MEDS ORDERED: diphenhydrAMINE 50 MG/ML 1 ML VIAL IVP STA (15:18)
[2019-09-03 15:24] LABS: ALT 20 U/L (9-52); AST 22 U/L (14-36); African American GFR (CKD) >90 (>60 ml/min/1.73 sqM); Albumin 4.4 g/dL (3.5-5.0); Alkaline Phosphatase 161 U/L (38-126); Anion Gap 12 mmol/L; Blood Urea Nitrogen 15 mg/dL (7-17); Calcium 10.3 mg/dL (8.4-10.2); Carbon Dioxide 24 mmol/L (22-30); Chloride 103 mmol/L (98-107); Glucose 131 mg/dL (74-99); Potassium 3.8 mmol/L (3.5-5.1); Sodium 139 mmol/L (137-145); Total Bilirubin 0.7 mg/dL (0.2-1.3); Total Protein 7.3 g/dL (6.3-8.2)
--- NOTE | 2019-09-03 15:42 | XR ---
EXAMINATION TYPE: XR KUB DATE OF EXAM: 09/03/2019 COMPARISON: 01/08/2016 INDICATION: Pain nausea vomiting TECHNIQUE: Single view abdomen until projection FINDINGS: There is a normal bowel gas pattern. Psoas margins are normal. No organomegaly is present. Postsurgical changes are in the lumbar spine and right hip. IMPRESSION: 1. Unremarkable Abdomen
--- NOTE | 2019-09-03 15:43 | ED ---
General Adult HPI - General Chief complaint: Abdominal Pain Stated complaint: Nausea,Vomiting Time Seen by Provider: 09/03/19 14:37 Source: patient Mode of arrival: EMS Limitations: no limitations - History of Present Illness Initial comments: Patient is a 64-year-old female, past medical history of hypertension, asthma, fibromyalgia, chronic low back pain, seizure disorder, presenting to emergency Department with complaints of nausea, vomiting, abdominal pain that started this morning. Patient was in the ER 4 days ago for same complaint. Patient states she was feeling better from last DC however symptoms returned today. Patient states her pain is around her stomach area and she thinks it's from all the vomiting she is doing. Patient is requesting pain medications. Patient denies recent fever, chills, diarrhea. Patient has no lower abdominal pain or urinary complaints. Patient has no other complaints at this time. Upon arrival to the ER, Patient's BP is elevated at 210/96, rest of vital signs are normal. Patient states she has not taken her blood pressure medications today yet. - Related Data Home Medications Medication Instructions Recorded Confirmed Ergocalciferol [Vitamin D2 50,000 unit PO Q7D 03/01/18 07/23/19 (DRISDLAMBERTO)] levETIRAcetam [Keppra] 500 mg PO BID 03/01/18 07/23/19 Docusate Sodium [Dok] 100 mg PO DAILY 07/23/19 07/23/19 Loratadine [Claritin] 10 mg PO DAILY 07/23/19 07/23/19 Methocarbamol [Robaxin] 500 mg PO BID PRN 07/23/19 07/23/19 hydrOXYzine HCL 25 mg PO BID 07/23/19 07/23/19 Previous Rx's Medication Instructions Recorded predniSONE 50 mg PO DAILY #4 tab 07/23/19 Acetaminophen Tab [Tylenol] 1,000 mg PO Q8HR PRN tab 07/28/19 Bisacodyl [Dulcolax] 10 mg PO DAILY PRN tablet. 07/28/19 Cyclobenzaprine [Flexeril] 5 mg PO TID PRN #12 tab 07/28/19 DULoxetine HCL [Cymbalta] 30 mg PO DAILY capsule. 07/28/19 HYDROcodone/APAP 7.5-325MG [[place] 1 each PO Q6H PRN #12 tab 07/28/19 7.5-325] Mag Hydrox/Al Hydrox/Simeth 30 ml PO QID PRN cup 07/28/19 [Maalox] Pantoprazole [Protonix] 40 mg PO DAILY@0730 tablet. 07/28/19 cloNIDine 0.1 MG/24HR PATCH 1 patch TRANSDERM Q7D patch 07/28/19 [Catapres-TTS] Allergies Allergy/AdvReac Type Severity Reaction Status Date / Time nitrofurantoin AdvReac Abdominal Verified 09/03/19 14:42 [From Macrobid] Pain/Nausea/Vomiting NSAIDS (Non-Steroidal AdvReac Nausea & Verified 09/03/19 14:42 Anti-Inflamma Vomiting Review of Systems ROS Statement: Those systems with pertinent positive or pertinent negative responses have been documented in the HPI. ROS Other: All systems not noted in ROS Statement are negative. Past Medical History Past Medical History: Asthma, Fibromyalgia, Hyperlipidemia, Hypertension, Memory Impairment, Musculoskeletal Disorder, Osteoarthritis (OA), Seizure Disorder Additional Past Medical History / Comment(s): BACK PAIN, SHORT TERM MEMORY LOSS, history of lumbar spine surgery 2 at outside institutions. History of multiple treatments and procedures with interventional pain management chronically. She is on chronic high-dose oral pain medications including morphine and Percocet. with pain management. History of Any Multi-Drug Resistant Organisms: None Reported Past Surgical History: Adenoidectomy, Back Surgery, Breast Surgery, Joint Replacement, Orthopedic Surgery, Tonsillectomy Additional Past Surgical History / Comment(s): , LT HAND SURGERY, RT GANGLION CYST REMOVED, LEEP, COLONOSCOPY, EGD, MIGUEL A. CATARACT WITH LENS IMLANTS,RT BREAST BIOPSY, 2 BACK SURGERIES- ONE WAS A LAMINECTOMY, TOTAL LEFT KNEE Past Anesthesia/Blood Transfusion Reactions: No Reported Reaction Past Psychological History: No Psychological Hx Reported Smoking Status: Light tobacco smoker Past Alcohol Use History: None Reported Past Drug Use History: None Reported - Past Family History Brother(s) Family Medical History: Cancer Additional Family Medical History / Comment(s): PANCREATITIS Mother Family Medical History: Hypertension, Memory Impairment Additional Family Medical History / Comment(s): ALZHEIMER'S Father Family Medical History: Coronary Artery Disease (CAD) Additional Family Medical History / Comment(s): HEART PROBLEMS-HAD QUAD- CABG, ALCOHOLISM General Exam - General Exam Comments Initial Comments: GENERAL: Appears uncomfortable. HEAD: Atraumatic, normocephalic. EYES: Pupils equal round and reactive to light, extraocular movements intact, sclera anicteric, conjunctiva are normal. ENT: Nares patent, oropharynx clear without exudates. Moist mucous membranes. NECK: Normal range of motion, supple without lymphadenopathy or JVD. LUNGS: Breath sounds clear to auscultation bilaterally and equal. No wheezes rales or rhonchi. HEART: Regular rate and rhythm without murmurs, rubs or gallops. ABDOMEN: Tender to palpation epigastric region. Soft, normoactive bowel sounds. No guarding, no rebound. No masses appreciated. EXTREMITIES: Normal range of motion, no pitting or edema. No clubbing or cyanosis. NEUROLOGICAL: Cranial nerves II through XII grossly intact. Normal speech, normal gait. PSYCH: Normal mood, normal affect. SKIN: Warm, Dry, normal turgor, no rashes or lesions noted. Limitations: no limitations Course Vital Signs 09/03/19 09/03/19 14:38 17:02 Temperature 97.9 F 97.8 F Pulse Rate 67 78 Respiratory 18 16 Rate Blood Pressure 210/96 198/84 O2 Sat by Pulse 98 98 Oximetry Medical Decision Making - Medical Decision Making Patient is a 64-year-old female complaining of nausea, vomiting, epigastric pain that started this morning. Patient was in the ER 4 days ago for same complaint requesting pain medications. Patient is showing drug-seeking behavior. Patient is requesting pain medications. Patient has recent history of being on Suboxone as well as multiple [place] prescriptions. Patient's exam is normal today, except for epigastric pain. There are no red flag symptoms. Patient was given fluids, Protonix, Reglan, Benadryl, Bentyl for symptomatically relief. Patient refused to take the Tylenol. She Requesting IV pain medications. Patient was given 0.1 mg of Dilaudid and then quickly stated she feels better. Patient is stable for discharge at this time. Patient states she has an appointment with Dr. Paula tomorrow on 09/04/2019. Discussed with her to continue with this appointment. Patient will be discharged home with Zofran as needed for nausea. Return parameters were discussed with the patient she verbalized understanding. Case discussed Dr. Baez. - Lab Data Result diagrams: 09/03/19 15:00 09/03/19 15:00 Lab Results 09/03/19 09/03/19 Range/Units 15:00 15:00 WBC 8.3 (3.8-10.6) k/uL RBC 5.42 H (3.80-5.40) m/uL Hgb 15.8 (11.4-16.0) gm/dL Hct 46.0 (34.0-46.0) % MCV 84.9 (80.0-100.0) fL MCH 29.3 (25.0-35.0) pg MCHC 34.4 (31.0-37.0) g/dL RDW 14.2 (11.5-15.5) % Plt Count 360 (150-450) k/uL Neutrophils % 74 % Lymphocytes % 18 % Monocytes % 4 % Eosinophils % 1 % Basophils % 1 % Neutrophils # 6.2 (1.3-7.7) k/uL Lymphocytes # 1.5 (1.0-4.8) k/uL Monocytes # 0.4 (0-1.0) k/uL Eosinophils # 0.1 (0-0.7) k/uL Basophils # 0.0 (0-0.2) k/uL Sodium 139 (137-145) mmol/L Potassium 3.8 (3.5-5.1) mmol/L Chloride 103 (98-107) mmol/L Carbon Dioxide 24 (22-30) mmol/L Anion Gap 12 mmol/L BUN 15 (7-17) mg/dL Creatinine 0.54 (0.52-1.04) mg/dL Est GFR (CKD-EPI)AfAm >90 (>60 ml/min/1.73 sqM) Est GFR (CKD-EPI)NonAf >90 (>60 ml/min/1.73 sqM) Glucose 131 H (74-99) mg/dL Calcium 10.3 H (8.4-10.2) mg/dL Total Bilirubin 0.7 (0.2-1.3) mg/dL AST 22 (14-36) U/L ALT 20 (9-52) U/L Alkaline Phosphatase 161 H (38-126) U/L Total Protein 7.3 (6.3-8.2) g/dL Albumin 4.4 (3.5-5.0) g/dL Disposition Clinical Impression: Nausea & vomiting, Mechanical low back pain, Abdominal pain Disposition: HOME SELF-CARE Condition: Stable Instructions (If sedation given, give patient instructions): Acute Nausea and Vomiting (ED) Additional Instructions: Please return to the Emergency Department if symptoms worsen or any other concerns. Follow-up with Dr. Cosme tomorrow for your appointment. Take Zofran as needed for nausea. Is patient prescribed a controlled substance at d/c from ED?: No Referrals: Aliya Cosme MD [Primary Care Provider] - 1-2 days
[2019-09-03] MEDS ORDERED: HYDROmorphone 0.5 MG/0.5 ML SYRINGE IVP STA (16:14)
[2019-09-03] MEDS ORDERED: ONDANSETRON ODT 4 MG TAB PO STA (16:32)
[2019-09-03] MEDS ORDERED: ONDANSETRON 4 MG ODT STARTER PACK 2 TAB BTL PO STA (16:33)
[2019-09-03 17:03] VITALS: BP 198/84; PULSE 78; RESP 16; TEMP 97.8
== END 2019-09-03 17:02 | disposition home or self-care (01) ==
LOC: EC 14:31
DX: R10.13 Epigastric pain (principal); R11.2 Nausea with vomiting, unspecified; M54.5 Low back pain; J45.909 Unspecified asthma, uncomplicated; E78.5 Hyperlipidemia, unspecified; I10 Essential (primary) hypertension; G40.909 Epilepsy, unspecified, not intractable, without status epilepticus; F17.200 Nicotine dependence, unspecified, uncomplicated; Z79.899 Other long term (current) drug therapy; Z88.1 Allergy status to other antibiotic agents; Z88.6 Allergy status to analgesic agent
CPT/HCPCS: 36415; 80053; 85025; 74018; 99284; 96374; 96375 ×3; 96361; J1200; J2765; S0119; C9113; J1170

== ENCOUNTER 2019-10-11 09:05 | Emergency (ER) | payer MEDICARE ==
[2019-10-11] MEDS ORDERED: MORPHINE SULFATE 4 MG/ML SYRINGE IV STA (09:37)
[2019-10-11] MEDS ORDERED: ONDANSETRON 4 MG/2 ML VIAL IVP STA (09:37)
[2019-10-11] MEDS ORDERED: SODIUM CHLORIDE 0.9% 1,000 ML IV STA ×2 (09:37)
--- NOTE | 2019-10-11 09:37 | ED ---
General Adult HPI - General Chief complaint: Nausea/Vomiting/Diarrhea Stated complaint: NVD Time Seen by Provider: 10/11/19 09:13 Source: patient, RN notes reviewed, old records reviewed Mode of arrival: EMS Limitations: no limitations - History of Present Illness Initial comments: His is a 64-year-old female. She presents today for evaluation for concerns for nausea and vomiting for the past day. She reports that she believes is related to withdrawals. She's been out of her Suboxone for the past 4 days. Patient states that she has been fired from her primary care doctor who typically prescribed this for her. Patient states that she has had no fevers or chills. Her vomiting just started today. Denies any changes in urination or bowel habi ts. Patient complains of chronic back pain. - Related Data Home Medications Medication Instructions Recorded Confirmed Ergocalciferol [Vitamin D2 50,000 unit PO Q7D 03/01/18 10/11/19 (DRISDOL)] levETIRAcetam [Keppra] 500 mg PO BID 03/01/18 10/11/19 Methocarbamol [Robaxin] 500 mg PO BID PRN 07/23/19 10/11/19 hydrOXYzine HCL 25 mg PO HS PRN 07/23/19 10/11/19 Buprenorphine HCl/Naloxone HCl 1 film SL BID 10/11/19 10/11/19 [Suboxone 8 mg-2 mg Sl Film] DULoxetine HCL [Cymbalta] 60 mg PO DAILY 10/11/19 10/11/19 Losartan Potassium 50 mg PO DAILY 10/11/19 10/11/19 Omeprazole 40 mg PO DAILY 10/11/19 10/11/19 Rosuvastatin [Crestor] 10 mg PO HS 10/11/19 10/11/19 cloNIDine HCL [Catapres] 0.1 mg PO DAILY 10/11/19 10/11/19 Previous Rx's Medication Instructions Recorded Metoclopramide [Reglan] 10 mg PO ACHS #12 tab 10/11/19 Allergies Allergy/AdvReac Type Severity Reaction Status Date / Time nitrofurantoin AdvReac Abdominal Verified 10/11/19 10:12 [From Macrobid] Pain/Nausea/Vomiting NSAIDS (Non-Steroidal AdvReac Nausea & Verified 10/11/19 10:12 Anti-Inflamma Vomiting Review of Systems ROS Statement: Those systems with pertinent positive or pertinent negative responses have been documented in the HPI. ROS Other: All systems not noted in ROS Statement are negative. Past Medical History Past Medical History: Asthma, Fibromyalgia, Hyperlipidemia, Hypertension, Memory Impairment, Musculoskeletal Disorder, Osteoarthritis (OA), Seizure Disorder Additional Past Medical History / Comment(s): BACK PAIN, SHORT TERM MEMORY LOSS, history of lumbar spine surgery 2 at outside institutions. History of multiple treatments and procedures with interventional pain management chronically. She is on chronic high-dose oral pain medications including morphine and Percocet. with pain management. History of Any Multi-Drug Resistant Organisms: None Reported Past Surgical History: Adenoidectomy, Back Surgery, Breast Surgery, Joint Replacement, Orthopedic Surgery, Tonsillectomy Additional Past Surgical History / Comment(s): , LT HAND SURGERY, RT GANGLION CYST REMOVED, LEEP, COLONOSCOPY, EGD, MIGUEL A. CATARACT WITH LENS IMLANTS,RT BREAST BIOPSY, 2 BACK SURGERIES- ONE WAS A LAMINECTOMY, TOTAL LEFT KNEE Past Anesthesia/Blood Transfusion Reactions: No Reported Reaction Past Psychological History: No Psychological Hx Reported Smoking Status: Light tobacco smoker Past Alcohol Use History: None Reported Past Drug Use History: None Reported - Past Family History Brother(s) Family Medical History: Cancer Additional Family Medical History / Comment(s): PANCREATITIS Mother Family Medical History: Hypertension, Memory Impairment Additional Family Medical History / Comment(s): ALZHEIMER'S Father Family Medical History: Coronary Artery Disease (CAD) Additional Family Medical History / Comment(s): HEART PROBLEMS-HAD QUAD- CABG, ALCOHOLISM General Exam - General Exam Comments Initial Comments: 64-year-old female. Alert and oriented. No distress. Limitations: no limitations General appearance: alert, in no apparent distress Head exam: Present: atraumatic, normocephalic, normal inspection Eye exam: Present: normal appearance ENT exam: Present: normal exam, mucous membranes moist Neck exam: Present: normal inspection. Absent: tenderness, meningismus, lymphadenopathy Respiratory exam: Present: normal lung sounds bilaterally. Absent: respiratory distress, wheezes, rales, rhonchi, stridor Cardiovascular Exam: Present: regular rate, normal rhythm, normal heart sounds. Absent: systolic murmur, diastolic murmur, rubs, gallop, clicks GI/Abdominal exam: Present: soft, normal bowel sounds. Absent: distended, tenderness, guarding, rebound, rigid Extremities exam: Present: normal inspection, full ROM, normal capillary refill. Absent: tenderness, pedal edema, joint swelling, calf tenderness Back exam: Present: normal inspection Neurological exam: Present: alert, oriented X3, CN II-XII intact Psychiatric exam: Present: normal affect, normal mood Skin exam: Present: warm, dry, intact, normal color. Absent: rash Course Vital Signs 10/11/19 10/11/19 10/11/19 09:09 12:10 12:57 Temperature 98.0 F 97.8 F Pulse Rate 48 L 52 L 50 L Respiratory 18 18 20 Rate Blood Pressure 206/95 205/81 200/81 O2 Sat by Pulse 100 100 100 Oximetry 10/11/19 10/11/19 13:13 14:00 Temperature 98 F Pulse Rate 62 55 L Respiratory 19 17 Rate Blood Pressure 187/96 183/98 O2 Sat by Pulse 99 100 Oximetry Medical Decision Making - Medical Decision Making patient's a 64-year-old female presents today for nausea and vomiting concern for going through withdrawals. She's been out of her Suboxone for 4 days. She states this was prescribed to her by her primary care doctor she was fired from her primary care doctor. Patient reports she's been shaky as well. Patient is given 1 dose of pain medicine emergency department, clonidine patch. She was found be hypertensive. She states she is not taking her blood pressure medications. She was given 1 dose of IV labetalol blood pressure did improve. Patient's low blood work was reviewed and unremarkable. I discussed the pat amber's symptoms are just related to withdrawal. Discussed she needs a follow-up with pain management or new primary care doctor regards to obtaining her Suboxone. - Lab Data Result diagrams: 10/11/19 10:25 10/11/19 10:25 Lab Results 10/11/19 10/11/19 10/11/19 Range/Units 10:25 10:25 13:30 WBC 9.6 (3.8-10.6) k/uL RBC 5.10 (3.80-5.40) m/uL Hgb 14.8 (11.4-16.0) gm/dL Hct 44.1 (34.0-46.0) % MCV 86.4 (80.0-100.0) fL MCH 29.1 (25.0-35.0) pg MCHC 33.6 (31.0-37.0) g/dL RDW 13.7 (11.5-15.5) % Plt Count 301 (150-450) k/uL Neutrophils % 80 % Lymphocytes % 15 % Monocytes % 3 % Eosinophils % 1 % Basophils % 1 % Neutrophils # 7.7 (1.3-7.7) k/uL Lymphocytes # 1.4 (1.0-4.8) k/uL Monocytes # 0.3 (0-1.0) k/uL Eosinophils # 0.1 (0-0.7) k/uL Basophils # 0.1 (0-0.2) k/uL Sodium 140 (137-145) mmol/L Potassium 4.2 (3.5-5.1) mmol/L Chloride 110 H (98-107) mmol/L Carbon Dioxide 19 L (22-30) mmol/L Anion Gap 11 mmol/L BUN 11 (7-17) mg/dL Creatinine 0.47 L (0.52-1.04) mg/dL Est GFR (CKD-EPI)AfAm >90 (>60 ml/min/1.73 sqM) Est GFR (CKD-EPI)NonAf >90 (>60 ml/min/1.73 sqM) Glucose 150 H (74-99) mg/dL Calcium 10.1 (8.4-10.2) mg/dL Total Bilirubin 0.9 (0.2-1.3) mg/dL AST 29 (14-36) U/L ALT 12 (4-34) U/L Alkaline Phosphatase 97 (38-126) U/L Total Protein 7.4 (6.3-8.2) g/dL Albumin 4.6 (3.5-5.0) g/dL Amylase 62 (30-110) U/L Lipase 35 (23-300) U/L Urine Color Light Yellow Urine Appearance Clear (Clear) Urine pH 7.5 (5.0-8.0) Ur Specific [place] 1.011 (1.001-1.035) Urine Protein Negative (Negative) Urine Glucose (UA) Negative (Negative) Urine Ketones 1+ H (Negative) Urine Blood Negative (Negative) Urine Nitrite Negative (Negative) Urine Bilirubin Negative (Negative) Urine Urobilinogen <2.0 (<2.0) mg/dL Ur Leukocyte Esterase Negative (Negative) Urine Opiates Screen Detected H (NotDetected) Ur Oxycodone Screen Not Detected (NotDetected) Urine Methadone Screen Not Detected (NotDetected) Ur Propoxyphene Screen Not Detected (NotDetected) Ur Barbiturates Screen Not Detected (NotDetected) U Tricyclic Antidepress Not Detected (NotDetected) Ur Phencyclidine Scrn Not Detected (NotDetected) Ur Amphetamines Screen Not Detected (NotDetected) U Methamphetamines Scrn Not Detected (NotDetected) U Benzodiazepines Scrn Not Detected (NotDetected) Urine Cocaine Screen Not Detected (NotDetected) U Marijuana (THC) Screen Not Detected (NotDetected) 10/11/19 17:04 EKG shows sinus bradycardia, prolonged QT. Abnormal EKG. Ventricular rate of 58 beats were minute. 46 most seconds. QRS duration is 88 ms. QT QTc is 542/522 ms. - Radiology Data Radiology results: report reviewed KUB shows overall nonspecific but nonobstructive bowel gas pattern. 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 Return to the emergency department if any alarming signs or symptoms occur. Prescriptions: Metoclopramide [Reglan] 10 mg PO ACHS #12 tab Is patient prescribed a controlled substance at d/c from ED?: No Referrals: None,Stated [Primary Care Provider] - 1-2 days Shayla Gee MD [STAFF PHYSICIAN] - 1-2 days Time of Disposition: 13:39
[2019-10-11 11:26] LABS: Basophils # (A) 0.1 k/uL (0-0.2); Basophils % (A) 1 %; Eosinophils # (A) 0.1 k/uL (0-0.7); Eosinophils % (A) 1 %; HCT 44.1 % (34.0-46.0); HGB 14.8 gm/dL (11.4-16.0); Lymphocytes # (A) 1.4 k/uL (1.0-4.8); Lymphocytes % (A) 15 %; MCH 29.1 pg (25.0-35.0); MCHC 33.6 g/dL (31.0-37.0); MCV 86.4 fL (80.0-100.0); Mean Platelet Volume 7.8; Monocytes # (A) 0.3 k/uL (0-1.0); Monocytes % (A) 3 %; Neutrophils # (A) 7.7 k/uL (1.3-7.7); Neutrophils % (A) 80 %; Platelet Count 301 k/uL (150-450); RDW 13.7 % (11.5-15.5); WBC 9.6 k/uL (3.8-10.6)
--- NOTE | 2019-10-11 11:31 | XR ---
EXAMINATION TYPE: XR KUB DATE OF EXAM: 10/11/2019 11:24 AM CLINICAL HISTORY: Abdominal pain with nausea and vomiting. TECHNIQUE: Two Upright KUB images of the abdomen are obtained. COMPARISON: Abdominal x-ray September 03, 2019. CT abdomen and pelvis July 23, 2019.. FINDINGS: there is some paucity of bowel gas. Scattered gas is seen in nondistended stomach as well a s small and large bowel loops throughout the abdomen and pelvis. Surgical changes lumbosacral junctio n redemonstrated. Surgical change right hip again seen. Right lateral translation of L4 on L3 redemon strated. Lung bases are clear. No pneumoperitoneum is evident. No suspicious calcifications are seen. IMPRESSION: Overall nonspecific but strongly favor nonobstructive bowel gas pattern.
[2019-10-11 11:36] LABS: ALT 12 U/L (4-34); AST 29 U/L (14-36); African American GFR (CKD) >90 (>60 ml/min/1.73 sqM); Albumin 4.6 g/dL (3.5-5.0); Alkaline Phosphatase 97 U/L (38-126); Amylase 62 U/L (30-110); Anion Gap 11 mmol/L; Blood Urea Nitrogen 11 mg/dL (7-17); Calcium 10.1 mg/dL (8.4-10.2); Carbon Dioxide 19 mmol/L (22-30); Chloride 110 mmol/L (98-107); Glucose 150 mg/dL (74-99); Non-African American GFR(CKD) >90 (>60 ml/min/1.73 sqM); Sodium 140 mmol/L (137-145); Total Bilirubin 0.9 mg/dL (0.2-1.3); Total Protein 7.4 g/dL (6.3-8.2)
[2019-10-11 11:49] LABS: Potassium 4.2 mmol/L (3.5-5.1)
[2019-10-11] MEDS ORDERED: LABETALOL 5 MG/ML VIAL MDV IVP STA (12:32)
[2019-10-11] MEDS ORDERED: METOCLOPRAMIDE 5 MG/ML 2 ML VIAL IVP STA (12:41)
[2019-10-11] MEDS ORDERED: diphenhydrAMINE 50 MG/ML 1 ML VIAL IVP STA (12:41)
[2019-10-11] MEDS ORDERED: LORazepam 2 MG/ML INJ IV STA (13:12)
[2019-10-11] MEDS ORDERED: HYDROcodone/APAP 5-325MG 1 EACH TAB PO STA (13:13)
[2019-10-11] MEDS ORDERED: cloNIDine 0.1 MG/24HR PATCH TRANSDERM SCH (14:00)
[2019-10-11 14:19] LABS: Appearance,Urine Clear (Clear); Bilirubin,Urine Negative (Negative); Blood,Urine Negative (Negative); Color,Urine Light Yellow; Glucose,Urine (UA) Negative (Negative); Ketones,Urine 1+ (Negative); Leukocyte Esterase,Urine Negative (Negative); Nitrite,Urine Negative (Negative); PH, Urine 7.5 (5.0-8.0); Protein,Urine Negative (Negative); Specific Gravity,Urine 1.011 (1.001-1.035); Urobilinogen,Urine <2.0 mg/dL (<2.0)
[2019-10-11 14:38] LABS: Amphetamine Screen,Urine Not Detected (NotDetected); Barbiturate Screen,Urine Not Detected (NotDetected); Benzodiazepines Screen,Urine Not Detected (NotDetected); Cocaine Screen,Urine Not Detected (NotDetected); Methadone Screen, Urine Not Detected (NotDetected); Opiate Screen,Urine Detected (NotDetected); Oxycodone Screen, Urine Not Detected (NotDetected); Phencyclidine Screen,Urine Not Detected (NotDetected); Tricyclic Antidepressant,Urine Not Detected (NotDetected); Urn Cannabinoid Scrn Not Detected (NotDetected)
[2019-10-11 14:39] VITALS: BP 183/98; PULSE 55; RESP 17; TEMP 98
== END 2019-10-11 14:00 | disposition home or self-care (01) ==
LOC: EC 09:05
DX: F11.23 Opioid dependence with withdrawal (principal); T40.2X5A Adverse effect of other opioids, initial encounter; M79.7 Fibromyalgia; E78.5 Hyperlipidemia, unspecified; I10 Essential (primary) hypertension; M19.90 Unspecified osteoarthritis, unspecified site; G40.909 Epilepsy, unspecified, not intractable, without status epilepticus; R41.3 Other amnesia; F17.200 Nicotine dependence, unspecified, uncomplicated; Z79.899 Other long term (current) drug therapy; Z88.6 Allergy status to analgesic agent; Z88.8 Allergy status to other drugs, medicaments and biological substances; Z98.890 Other specified postprocedural states
CPT/HCPCS: 99285; 96374; 96375 ×5; 96361; 36415; 93005; 80053; 82150; 83690; 85025; 81003; 80306; 74018; J2060; J2270; J1200; J2765; J2405

== ENCOUNTER 2019-10-14 03:18 | Emergency (ER) | payer MEDICARE ==
[2019-10-14 03:27] VITALS: TEMP 98.4
[2019-10-14] MEDS ORDERED: PROMETHAZINE INJ 25 MG in SODIUM CHLORIDE 0.9% 50 ML IVPB STA (04:01)
[2019-10-14] MEDS ORDERED: METHADONE 10 MG TAB PO STA (04:01)
[2019-10-14] MEDS ORDERED: cloNIDine HCL 0.2 MG TAB PO STA (04:01)
[2019-10-14 04:25] LABS: African American GFR (CKD) >90 (>60 ml/min/1.73 sqM); Amylase 41 U/L (30-110); Anion Gap 10 mmol/L; Blood Urea Nitrogen 24 mg/dL (7-17); Carbon Dioxide 23 mmol/L (22-30); Chloride 103 mmol/L (98-107); Glucose 154 mg/dL (74-99); Non-African American GFR(CKD) >90 (>60 ml/min/1.73 sqM); Potassium 3.4 mmol/L (3.5-5.1); Sodium 136 mmol/L (137-145)
[2019-10-14 04:26] LABS: Basophils # (A) 0.1 k/uL (0-0.2); Basophils % (A) 1 %; Eosinophils # (A) 0.1 k/uL (0-0.7); Eosinophils % (A) 2 %; HCT 45.4 % (34.0-46.0); HGB 15.2 gm/dL (11.4-16.0); Lymphocytes # (A) 3.1 k/uL (1.0-4.8); Lymphocytes % (A) 33 %; MCH 28.9 pg (25.0-35.0); MCHC 33.5 g/dL (31.0-37.0); MCV 86.1 fL (80.0-100.0); Mean Platelet Volume 7.8; Monocytes # (A) 0.6 k/uL (0-1.0); Monocytes % (A) 6 %; Neutrophils # (A) 5.3 k/uL (1.3-7.7); Neutrophils % (A) 57 %; Platelet Count 316 k/uL (150-450); RBC 5.27 m/uL (3.80-5.40); RDW 13.9 % (11.5-15.5); WBC 9.4 k/uL (3.8-10.6)
[2019-10-14] MEDS ORDERED: MORPHINE SULFATE 4 MG/ML SYRINGE IV STA (05:43)
--- NOTE | 2019-10-14 05:45 | ED ---
Nausea/Vomiting/Diarrhea HPI - General Chief complaint: Nausea/Vomiting/Diarrhea Stated complaint: pain Time Seen by Provider: 10/14/19 03:49 Source: patient, EMS Mode of arrival: EMS Limitations: no limitations - History of Present Illness Initial comments: This patient is 64-year-old woman presenting to be evaluated for nausea, vomiting, and abdominal cramping. She does relate that she had stopped using Suboxone. The symptoms following that the day after. She also is having some anxiety, and a feeling of cold sweats. MD complaint: nausea, vomiting, abdominal pain -: days(s) Description of Vomiting: food contents Associated Abdominal Pain: Yes Location: diffuse Severity: moderate Quality: cramping Consistency: intermittent Improves with: none Worsens with: none Associated Symptoms: malaise - Related Data Home Medications Medication Instructions Recorded Confirmed Ergocalciferol [Vitamin D2 50,000 unit PO Q7D 03/01/18 10/18/19 (DRISDOL)] Previous Rx's Medication Instructions Recorded Acetaminophen Tab [Tylenol] 325 mg PO Q6HR PRN #30 tab 10/20/19 Butalb/APAP/Caff 50-325-40Mg 1 each PO Q12HR PRN 2 Days #4 tab 10/20/19 [Fioricet 50-325-40] DULoxetine HCL [Cymbalta] 60 mg PO DAILY #30 cap 10/20/19 Ibuprofen [Motrin] 400 mg PO Q6HR PRN 5 Days #20 tab 10/20/19 Losartan Potassium 50 mg PO DAILY #30 10/20/19 Omeprazole 40 mg PO DAILY #30 cap 10/20/19 Ondansetron Odt [Zofran ODT] 4 mg PO Q8HR PRN #90 tab 10/20/19 Rosuvastatin [Crestor] 10 mg PO HS #30 tab 10/20/19 amLODIPine [Norvasc] 5 mg PO DAILY #30 tab 10/20/19 diphenhydrAMINE [Benadryl] 25 mg PO BID PRN 7 Days #14 capsule 10/20/19 levETIRAcetam [Keppra] 500 mg PO BID #60 tab 10/20/19 Allergies Allergy/AdvReac Type Severity Reaction Status Date / Time nitrofurantoin AdvReac Abdominal Verified 10/18/19 11:37 [From Macrobid] Pain/Nausea/Vomiting NSAIDS (Non-Steroidal AdvReac Nausea & Verified 10/18/19 11:37 Anti-Inflamma Vomiting Review of Systems ROS Statement: Those systems with pertinent positive or pertinent negative responses have been documented in the HPI. ROS Other: All systems not noted in ROS Statement are negative. Constitutional: Denies: fever, chills Respiratory: Denies: cough, dyspnea Cardiovascular: Denies: chest pain, palpitations Gastrointestinal: Reports: abdominal pain, nausea, vomiting, diarrhea Genitourinary: Denies: dysuria, hematuria Musculoskeletal: Denies: back pain Skin: Denies: rash Neurological: Denies: headache, weakness, numbness Psychiatric: Reports: anxiety Past Medical History Past Medical History: Asthma, Fibromyalgia, Hyperlipidemia, Hypertension, Memory Impairment, Musculoskeletal Disorder, Osteoarthritis (OA), Seizure Disorder Additional Past Medical History / Comment(s): BACK PAIN, SHORT TERM MEMORY LOSS, history of lumbar spine surgery 2 at outside institutions. History of multiple treatments and procedures with interventional pain management chronically. She is on chronic high-dose oral pain medications including morphine and Percocet. with pain management. History of Any Multi-Drug Resistant Organisms: None Reported Past Surgical History: Adenoidectomy, Back Surgery, Breast Surgery, Joint Replacement, Orthopedic Surgery, Tonsillectomy Additional Past Surgical History / Comment(s): , LT HAND SURGERY, RT GANGLION CYST REMOVED, LEEP, COLONOSCOPY, EGD, MIGUEL A. CATARACT WITH LENS IMLANTS,RT BREAST BIOPSY, 2 BACK SURGERIES- ONE WAS A LAMINECTOMY, TOTAL LEFT KNEE Past Anesthesia/Blood Transfusion Reactions: No Reported Reaction Past Psychological History: No Psychological Hx Reported Smoking Status: Current every day smoker Past Alcohol Use History: None Reported Past Drug Use History: None Reported - Past Family History Brother(s) Family Medical History: Cancer Additional Family Medical History / Comment(s): PANCREATITIS Mother Family Medical History: Hypertension, Memory Impairment Additional Family Medical History / Comment(s): ALZHEIMER'S Father Family Medical History: Coronary Artery Disease (CAD) Additional Family Medical History / Comment(s): HEART PROBLEMS-HAD QUAD- CABG, ALCOHOLISM General Exam Limitations: no limitations General appearance: alert, in no apparent distress, anxious Head exam: Present: atraumatic, normocephalic Eye exam: Present: normal appearance. Absent: scleral icterus, conjunctival injection ENT exam: Present: mucous membranes dry Neck exam: Present: normal inspection Respiratory exam: Present: normal lung sounds bilaterally. Absent: respiratory distress, wheezes, rales, rhonchi, stridor Cardiovascular Exam: Present: regular rate, normal rhythm, normal heart sounds. Absent: systolic murmur, diastolic murmur, rubs, gallop GI/Abdominal exam: Present: soft. Absent: distended, tenderness, guarding, rebound, rigid, mass Extremities exam: Present: normal inspection, normal capillary refill. Absent: pedal edema, calf tenderness Back exam: Present: normal inspection Neurological exam: Present: alert Skin exam: Present: warm, dry, intact, normal color. Absent: rash Course Vital Signs 10/14/19 10/14/19 10/14/19 03:21 04:32 06:20 Temperature 98.4 F Pulse Rate 74 70 78 Respiratory 18 19 18 Rate Blood Pressure 200/106 184/86 O2 Sat by Pulse 97 97 99 Oximetry Medical Decision Making - Medical Decision Making Patient is 64-year-old woman here with classic withdrawal symptoms. She did stop using Suboxone prior to onset. She has had relief of symptoms with medication here. Discussed the importance of following with her physician to resume Suboxone or other replacement therapy or to discuss the rationale for f ollow-up total cessation. - Lab Data Result diagrams: 10/14/19 03:28 10/14/19 03:28 Lab Results 10/14/19 10/14/19 Range/Units 03:28 03:28 WBC 9.4 (3.8-10.6) k/uL RBC 5.27 (3.80-5.40) m/uL Hgb 15.2 (11.4-16.0) gm/dL Hct 45.4 (34.0-46.0) % MCV 86.1 (80.0-100.0) fL MCH 28.9 (25.0-35.0) pg MCHC 33.5 (31.0-37.0) g/dL RDW 13.9 (11.5-15.5) % Plt Count 316 (150-450) k/uL Neutrophils % 57 % Lymphocytes % 33 % Monocytes % 6 % Eosinophils % 2 % Basophils % 1 % Neutrophils # 5.3 (1.3-7.7) k/uL Lymphocytes # 3.1 (1.0-4.8) k/uL Monocytes # 0.6 (0-1.0) k/uL Eosinophils # 0.1 (0-0.7) k/uL Basophils # 0.1 (0-0.2) k/uL Sodium 136 L (137-145) mmol/L Potassium 3.4 L (3.5-5.1) mmol/L Chloride 103 (98-107) mmol/L Carbon Dioxide 23 (22-30) mmol/L Anion Gap 10 mmol/L BUN 24 H (7-17) mg/dL Creatinine 0.60 (0.52-1.04) mg/dL Est GFR (CKD-EPI)AfAm >90 (>60 ml/min/1.73 sqM) Est GFR (CKD-EPI)NonAf >90 (>60 ml/min/1.73 sqM) Glucose 154 H (74-99) mg/dL Calcium 10.0 (8.4-10.2) mg/dL Amylase 41 (30-110) U/L Lipase 74 (23-300) U/L Disposition Clinical Impression: Acute drug withdrawal syndrome Disposition: HOME SELF-CARE Condition: Fair Instructions (If sedation given, give patient instructions): Opioid Withdrawal (ED) Is patient prescribed a controlled substance at d/c from ED?: No Referrals: None,Stated [Primary Care Provider] - 1-2 days
[2019-10-14 06:21] VITALS: BP 184/86; PULSE 78; RESP 18
== END 2019-10-14 06:21 | disposition home or self-care (01) ==
LOC: EC 03:18
DX: F11.23 Opioid dependence with withdrawal (principal); M19.90 Unspecified osteoarthritis, unspecified site; F17.200 Nicotine dependence, unspecified, uncomplicated; Z88.1 Allergy status to other antibiotic agents; Z88.6 Allergy status to analgesic agent; Z96.652 Presence of left artificial knee joint
CPT/HCPCS: 36415; 80048; 82150; 83690; 85025; 99284; 96365; 96366; 96375; J2270; J2550; S0109

== ENCOUNTER 2019-10-16 09:18 | Emergency (ER) | payer MEDICARE ==
[2019-10-16 09:24] VITALS: TEMP 97.5
[2019-10-16] MEDS ORDERED: ONDANSETRON 4 MG/2 ML VIAL IVP STA (09:54)
[2019-10-16] MEDS ORDERED: HYDROmorphone 0.5 MG/0.5 ML SYRINGE IVP STA (09:54)
[2019-10-16] MEDS ORDERED: SODIUM CHLORIDE 0.9% 1,000 ML IV STA ×2 (09:54)
--- NOTE | 2019-10-16 09:58 | ED ---
General Adult HPI - General Chief complaint: Nausea/Vomiting/Diarrhea Stated complaint: Detox and vomiting Time Seen by Provider: 10/16/19 09:40 Source: patient, RN notes reviewed, old records reviewed Mode of arrival: EMS Limitations: no limitations - History of Present Illness Initial comments: 64-year-old female presents emergency department today for the third time in the past week for concerns for nausea and vomiting, now concerned for constipation. She states that she is withdrawing from her pain medication. She's been off of Suboxone for a week. She reports she was fired by her primary care doctor. At this time she states that she cannot get into a new pain management doctor and continues to feel worse. Patient states that she has not had a bowel movement in a week. - Related Data Home Medications Medication Instructions Recorded Confirmed Ergocalciferol [Vitamin D2 50,000 unit PO Q7D 03/01/18 10/11/19 (DRISDOL)] levETIRAcetam [Keppra] 500 mg PO BID 03/01/18 10/11/19 Methocarbamol [Robaxin] 500 mg PO BID PRN 07/23/19 10/11/19 hydrOXYzine HCL 25 mg PO HS PRN 07/23/19 10/11/19 Buprenorphine HCl/Naloxone HCl 1 film SL BID 10/11/19 10/11/19 [Suboxone 8 mg-2 mg Sl Film] DULoxetine HCL [Cymbalta] 60 mg PO DAILY 10/11/19 10/11/19 Losartan Potassium 50 mg PO DAILY 10/11/19 10/11/19 Omeprazole 40 mg PO DAILY 10/11/19 10/11/19 Rosuvastatin [Crestor] 10 mg PO HS 10/11/19 10/11/19 cloNIDine HCL [Catapres] 0.1 mg PO DAILY 10/11/19 10/11/19 Previous Rx's Medication Instructions Recorded Metoclopramide [Reglan] 10 mg PO ACHS #12 tab 10/11/19 Cephalexin [Keflex] 500 mg PO Q6H #28 cap 10/16/19 HYDROcodone/APAP 5-325MG [[place] 1 tab PO Q6HR PRN 3 Days #12 tab 10/16/19 5-325] Ondansetron Odt [Zofran Odt] 4 mg PO Q8HR PRN #12 tab 10/16/19 Allergies Allergy/AdvReac Type Severity Reaction Status Date / Time nitrofurantoin AdvReac Abdominal Verified 10/14/19 03:27 [From Macrobid] Pain/Nausea/Vomiting NSAIDS (Non-Steroidal AdvReac Nausea & Verified 10/14/19 03:27 Anti-Inflamma Vomiting Review of Systems ROS Statement: Those systems with pertinent positive or pertinent negative responses have been documented in the HPI. ROS Other: All systems not noted in ROS Statement are negative. Past Medical History Past Medical History: Asthma, Fibromyalgia, Hyperlipidemia, Hypertension, Memory Impairment, Musculoskeletal Disorder, Osteoarthritis (OA), Seizure Disorder Additional Past Medical History / Comment(s): BACK PAIN, SHORT TERM MEMORY LOSS, history of lumbar spine surgery 2 at outside institutions. History of multiple treatments and procedures with interventional pain management chronically. She is on chronic high-dose oral pain medications including morphine and Percocet. with pain management. History of Any Multi-Drug Resistant Organisms: None Reported Past Surgical History: Adenoidectomy, Back Surgery, Breast Surgery, Joint Replacement, Orthopedic Surgery, Tonsillectomy Additional Past Surgical History / Comment(s): , LT HAND SURGERY, RT GANGLION CYST REMOVED, LEEP, COLONOSCOPY, EGD, MIGUEL A. CATARACT WITH LENS IMLANTS,RT BREAST BIOPSY, 2 BACK SURGERIES- ONE WAS A LAMINECTOMY, TOTAL LEFT KNEE Past Anesthesia/Blood Transfusion Reactions: No Reported Reaction Past Psychological History: No Psychological Hx Reported Smoking Status: Current every day smoker Past Alcohol Use History: None Reported Past Drug Use History: None Reported - Past Family History Brother(s) Family Medical History: Cancer Additional Family Medical History / Comment(s): PANCREATITIS Mother Family Medical History: Hypertension, Memory Impairment Additional Family Medical History / Comment(s): ALZHEIMER'S Father Family Medical History: Coronary Artery Disease (CAD) Additional Family Medical History / Comment(s): HEART PROBLEMS-HAD QUAD- CABG, ALCOHOLISM General Exam - General Exam Comments Initial Comments: 64-year-old female. Anxious. Limitations: no limitations General appearance: alert, in no apparent distress Head exam: Present: atraumatic, normocephalic, normal inspection Eye exam: Present: normal appearance, PERRL, EOMI. Absent: scleral icterus, conjunctival injection, periorbital swelling ENT exam: Present: normal exam, mucous membranes moist Neck exam: Present: normal inspection. Absent: tenderness, meningismus, lymphadenopathy Respiratory exam: Present: normal lung sounds bilaterally. Absent: respiratory distress, wheezes, rales, rhonchi, stridor Cardiovascular Exam: Present: regular rate, normal rhythm, normal heart sounds. Absent: systolic murmur, diastolic murmur, rubs, gallop, clicks GI/Abdominal exam: Present: soft, normal bowel sounds. Absent: distended, tenderness, guarding, rebound, rigid Extremities exam: Present: normal inspection, full ROM, normal capillary refill. Absent: tenderness, pedal edema, joint swelling, calf tenderness Back exam: Present: normal inspection Neurological exam: Present: alert, oriented X3, CN II-XII intact Psychiatric exam: Present: normal affect, normal mood Skin exam: Present: warm, dry, intact, normal color. Absent: rash Course Vital Signs 10/16/19 10/16/19 10/16/19 09:19 10:43 11:30 Temperature 97.5 F L Pulse Rate 62 59 L Respiratory 16 19 Rate Blood Pressure 219/99 192/102 O2 Sat by Pulse 99 98 Oximetry 10/16/19 10/16/19 10/16/19 11:54 12:11 14:05 Temperature Pulse Rate 64 72 Respiratory 16 16 Rate Blood Pressure 227/95 212/104 211/102 O2 Sat by Pulse 98 98 Oximetry Medical Decision Making - Medical Decision Making 8-year-old female presents today with concern for nausea vomiting. Parents to be suffering from opiate withdrawal. At this time Patient labwork was obtained. She does have evidence of urinary tract infection. Patient was given Rocephin. Patient has had no vomiting. Patient did have elevated blood pressure emergency department. She was given labetalol. I discussed the case multiple times with Dr Baez. He also evaluated the Patient. Patient is advised that she can follow up outpatient only with primary care doctor or stage setting painter apprentice for further Suboxone treatment. Discussed treatment with antibiotics for UTI. Urine culture will be completed. - Lab Data Result diagrams: 10/16/19 10:10 10/16/19 10:10 Lab Results 10/16/19 10/16/19 10/16/19 Range/Units 10:10 10:10 10:10 WBC 9.8 (3.8-10.6) k/uL RBC 5.42 H (3.80-5.40) m/uL Hgb 15.8 (11.4-16.0) gm/dL Hct 47.2 H (34.0-46.0) % MCV 87.1 (80.0-100.0) fL MCH 29.0 (25.0-35.0) pg MCHC 33.4 (31.0-37.0) g/dL RDW 13.7 (11.5-15.5) % Plt Count 330 (150-450) k/uL Neutrophils % 73 % Lymphocytes % 18 % Monocytes % 5 % Eosinophils % 3 % Basophils % 1 % Neutrophils # 7.1 (1.3-7.7) k/uL Lymphocytes # 1.8 (1.0-4.8) k/uL Monocytes # 0.5 (0-1.0) k/uL Eosinophils # 0.3 (0-0.7) k/uL Basophils # 0.1 (0-0.2) k/uL Sodium 140 (137-145) mmol/L Potassium 3.5 (3.5-5.1) mmol/L Chloride 103 (98-107) mmol/L Carbon Dioxide 24 (22-30) mmol/L Anion Gap 13 mmol/L BUN 18 H (7-17) mg/dL Creatinine 0.56 (0.52-1.04) mg/dL Est GFR (CKD-EPI)AfAm >90 (>60 ml/min/1.73 sqM) Est GFR (CKD-EPI)NonAf >90 (>60 ml/min/1.73 sqM) Glucose 139 H (74-99) mg/dL Calcium 10.2 (8.4-10.2) mg/dL Total Bilirubin 1.0 (0.2-1.3) mg/dL AST 23 (14-36) U/L ALT 16 (4-34) U/L Alkaline Phosphatase 101 (38-126) U/L Total Protein 7.4 (6.3-8.2) g/dL Albumin 4.7 (3.5-5.0) g/dL Amylase 81 (30-110) U/L Lipase 71 (23-300) U/L Urine Color Yellow Urine Appearance Cloudy H (Clear) Urine pH 6.0 (5.0-8.0) Ur Specific Earling 1.025 (1.001-1.035) Urine Protein 1+ H (Negative) Urine Glucose (UA) Negative (Negative) Urine Ketones Trace H (Negative) Urine Blood Trace H (Negative) Urine Nitrite Negative (Negative) Urine Bilirubin Negative (Negative) Urine Urobilinogen 2.0 (<2.0) mg/dL Ur Leukocyte Esterase Large H (Negative) Urine RBC 24 H (0-5) /hpf Urine WBC >182 H (0-5) /hpf Ur Squamous Epith Cells 3 (0-4) /hpf Amorphous Sediment Rare H (None) /hpf Urine Bacteria Rare H (None) /hpf Urine Mucus Many H (None) /hpf Urine Opiates Screen (NotDetected) Ur Oxycodone Screen (NotDetected) Urine Methadone Screen (NotDetected) Ur Propoxyphene Screen (NotDetected) Ur Barbiturates Screen (NotDetected) U Tricyclic Antidepress (NotDetected) Ur Phencyclidine Scrn (NotDetected) Ur Amphetamines Screen (NotDetected) U Methamphetamines Scrn (NotDetected) U Benzodiazepines Scrn (NotDetected) Urine Cocaine Screen (NotDetected) U Marijuana (THC) Screen (NotDetected) 10/16/19 Range/Units 10:10 WBC (3.8-10.6) k/uL RBC (3.80-5.40) m/uL Hgb (11.4-16.0) gm/dL Hct (34.0-46.0) % MCV (80.0-100.0) fL MCH (25.0-35.0) pg MCHC (31.0-37.0) g/dL RDW (11.5-15.5) % Plt Count (150-450) k/uL Neutrophils % % Lymphocytes % % Monocytes % % Eosinophils % % Basophils % % Neutrophils # (1.3-7.7) k/uL Lymphocytes # (1.0-4.8) k/uL Monocytes # (0-1.0) k/uL Eosinophils # (0-0.7) k/uL Basophils # (0-0.2) k/uL Sodium (137-145) mmol/L Potassium (3.5-5.1) mmol/L Chloride (98-107) mmol/L Carbon Dioxide (22-30) mmol/L Anion Gap mmol/L BUN (7-17) mg/dL Creatinine (0.52-1.04) mg/dL Est GFR (CKD-EPI)AfAm (>60 ml/min/1.73 sqM) Est GFR (CKD-EPI)NonAf (>60 ml/min/1.73 sqM) Glucose (74-99) mg/dL Calcium (8.4-10.2) mg/dL Total Bilirubin (0.2-1.3) mg/dL AST (14-36) U/L ALT (4-34) U/L Alkaline Phosphatase (38-126) U/L Total Protein (6.3-8.2) g/dL Albumin (3.5-5.0) g/dL Amylase (30-110) U/L Lipase (23-300) U/L Urine Color Urine Appearance (Clear) Urine pH (5.0-8.0) Ur Specific Earling (1.001-1.035) Urine Protein (Negative) Urine Glucose (UA) (Negative) Urine Ketones (Negative) Urine Blood (Negative) Urine Nitrite (Negative) Urine Bilirubin (Negative) Urine Urobilinogen (<2.0) mg/dL Ur Leukocyte Esterase (Negative) Urine RBC (0-5) /hpf Urine WBC (0-5) /hpf Ur Squamous Epith Cells (0-4) /hpf Amorphous Sediment (None) /hpf Urine Bacteria (None) /hpf Urine Mucus (None) /hpf Urine Opiates Screen Detected H (NotDetected) Ur Oxycodone Screen Not Detected (NotDetected) Urine Methadone Screen Detected H (NotDetected) Ur Propoxyphene Screen Not Detected (NotDetected) Ur Barbiturates Screen Not Detected (NotDetected) U Tricyclic Antidepress Not Detected (NotDetected) Ur Phencyclidine Scrn Not Detected (NotDetected) Ur Amphetamines Screen Not Detected (NotDetected) U Methamphetamines Scrn Not Detected (NotDetected) U Benzodiazepines Scrn Not Detected (NotDetected) Urine Cocaine Screen Not Detected (NotDetected) U Marijuana (THC) Screen Not Detected (NotDetected) 10/16/19 12:11 EKG shows sinus bradycardia, prolonged QT. Abnormal EKG. Ventricular rate of 50 beats were minute. Intervals 122 ms. QS duration is 86 [place] [address]/26/1994 milliseconds. Disposition Clinical Impression: UTI (urinary tract infection), Hypertension, Opiate dependence, Acute drug withdrawal syndrome Disposition: HOME SELF-CARE Condition: Good Instructions (If sedation given, give patient instructions): Urinary Tract Infection in Women (DC), Chronic Pain (ED) Additional Instructions: Patient advised to take antibiotics as prescribed. Follow-up with primary care physicians and stage setting painter apprentice and strategic debriefing specialist. Prescriptions: Cephalexin [Keflex] 500 mg PO Q6H #28 cap HYDROcodone/APAP 5-325MG [[place] 5-325] 1 tab PO Q6HR PRN 3 Days #12 tab PRN Reason: Pain Ondansetron Odt [Zofran Odt] 4 mg PO Q8HR PRN #12 tab PRN Reason: Nausea Is patient prescribed a controlled substance at d/c from ED?: No Referrals: None,Stated [Primary Care Provider] - 1-2 days Shayla Gee MD [STAFF PHYSICIAN] - 1-2 days Reilly Brand III, MD [STAFF PHYSICIAN] - 1-2 days Jose G Robertson MD [STAFF PHYSICIAN] - 1-2 days Time of Disposition: 13:43
[2019-10-16 10:30] LABS: Basophils # (A) 0.1 k/uL (0-0.2); Basophils % (A) 1 %; Eosinophils # (A) 0.3 k/uL (0-0.7); Eosinophils % (A) 3 %; HCT 47.2 % (34.0-46.0); HGB 15.8 gm/dL (11.4-16.0); Lymphocytes # (A) 1.8 k/uL (1.0-4.8); Lymphocytes % (A) 18 %; MCHC 33.4 g/dL (31.0-37.0); MCV 87.1 fL (80.0-100.0); Mean Platelet Volume 7.5; Monocytes # (A) 0.5 k/uL (0-1.0); Monocytes % (A) 5 %; Neutrophils # (A) 7.1 k/uL (1.3-7.7); Neutrophils % (A) 73 %; Platelet Count 330 k/uL (150-450); RBC 5.42 m/uL (3.80-5.40); RDW 13.7 % (11.5-15.5); WBC 9.8 k/uL (3.8-10.6)
[2019-10-16 10:37] LABS: Amorphous Sediment,Urine Rare /hpf; Appearance,Urine Cloudy (Clear); Bacteria,Urine Rare /hpf; Bilirubin,Urine Negative (Negative); Blood,Urine Trace (Negative); Color,Urine Yellow; Glucose,Urine (UA) Negative (Negative); Ketones,Urine Trace (Negative); Leukocyte Esterase,Urine Large (Negative); Mucus,Urine Many /hpf; Nitrite,Urine Negative (Negative); Protein,Urine 1+ (Negative); RBC,Urine 24 /hpf (0-5); Specific Gravity,Urine 1.025 (1.001-1.035); Squamous Epithelial Cell,Urine 3 /hpf (0-4); WBC,Urine >182 /hpf (0-5)
[2019-10-16 10:39] LABS: ALT 16 U/L (4-34); AST 23 U/L (14-36); African American GFR (CKD) >90 (>60 ml/min/1.73 sqM); Albumin 4.7 g/dL (3.5-5.0); Alkaline Phosphatase 101 U/L (38-126); Amylase 81 U/L (30-110); Anion Gap 13 mmol/L; Blood Urea Nitrogen 18 mg/dL (7-17); Calcium 10.2 mg/dL (8.4-10.2); Carbon Dioxide 24 mmol/L (22-30); Chloride 103 mmol/L (98-107); Glucose 139 mg/dL (74-99); Non-African American GFR(CKD) >90 (>60 ml/min/1.73 sqM); Potassium 3.5 mmol/L (3.5-5.1); Sodium 140 mmol/L (137-145); Total Protein 7.4 g/dL (6.3-8.2)
[2019-10-16 10:43] LABS: Cocaine Screen,Urine Not Detected (NotDetected); Opiate Screen,Urine Detected (NotDetected); Phencyclidine Screen,Urine Not Detected (NotDetected); Urn Cannabinoid Scrn Not Detected (NotDetected)
[2019-10-16 10:44] LABS: Amphetamine Screen,Urine Not Detected (NotDetected); Barbiturate Screen,Urine Not Detected (NotDetected); Benzodiazepines Screen,Urine Not Detected (NotDetected); Methadone Screen, Urine Detected (NotDetected); Oxycodone Screen, Urine Not Detected (NotDetected); Tricyclic Antidepressant,Urine Not Detected (NotDetected)
[2019-10-16] MEDS ORDERED: LABETALOL 5 MG/ML VIAL MDV IVP STA (10:55)
[2019-10-16] MEDS ORDERED: cefTRIAXone IN SWFI 1,000 MG/10 ML SYRINGE IVP STA (11:14)
--- NOTE | 2019-10-16 11:34 | XR ---
EXAMINATION TYPE: XR KUB DATE OF EXAM: 10/16/2019 CLINICAL DATA: 64-year-old female with pain, [facility] COMPARISON: 10/11/2019 FINDINGS: Lung bases are clear. No evidence for free intraperitoneal air. No dilated small bowel or air-fluid levels. Scattered air is seen within the colon extending distally to the rectum. Minimal stool is present. No suspicious calcifications identified. Soft tissue swelling posterior and interbody fusion. Right hip hemiarthroplasty partially visualized. IMPRESSION: No evidence of bowel obstruction or free intraperitoneal air.
[2019-10-16] MEDS ORDERED: HYDROmorphone 1 MG/ML 1 ML SYRINGE IVP STA (12:01)
[2019-10-16] MEDS ORDERED: METOCLOPRAMIDE 5 MG/ML 2 ML VIAL IVP STA (12:11)
[2019-10-16] MEDS ORDERED: diphenhydrAMINE 50 MG/ML 1 ML VIAL IVP STA (12:11)
[2019-10-16 12:14] VITALS: RESP 16
[2019-10-16 14:08] VITALS: BP 211/102; PULSE 72
== END 2019-10-16 14:05 | disposition home or self-care (01) ==
LOC: EC 09:18
DX: F11.23 Opioid dependence with withdrawal (principal); N39.0 Urinary tract infection, site not specified; I10 Essential (primary) hypertension; R11.2 Nausea with vomiting, unspecified; R19.7 Diarrhea, unspecified; M79.7 Fibromyalgia; E78.5 Hyperlipidemia, unspecified; M19.90 Unspecified osteoarthritis, unspecified site; G40.909 Epilepsy, unspecified, not intractable, without status epilepticus; F17.200 Nicotine dependence, unspecified, uncomplicated; Z96.698 Presence of other orthopedic joint implants; Z79.899 Other long term (current) drug therapy; Z88.1 Allergy status to other antibiotic agents; Z88.6 Allergy status to analgesic agent
CPT/HCPCS: 36415; 93005; 80053; 82150; 83690; 85025; 81001; 80306; 74018; 99285; 96374; 96375 ×5; 96376; 96361 ×3; J1200; J2765; J2405; J0696; J1170 ×2

== ENCOUNTER 2019-10-18 11:07 | Inpatient (IN) | payer MEDICARE ==
[2019-10-18] MEDS ORDERED: ONDANSETRON 4 MG/2 ML VIAL IVP STA (11:47)
[2019-10-18] MEDS ORDERED: SODIUM CHLORIDE 0.9% 1,000 ML IV STA ×2 (11:47)
[2019-10-18] MEDS ORDERED: HYDROmorphone 1 MG/ML 1 ML SYRINGE IVP STA (11:47)
[2019-10-18] MEDS ORDERED: LABETALOL 5 MG/ML VIAL MDV IVP STA ×2 (11:55→14:20)
[2019-10-18] MEDS ORDERED: hydrALAZINE HCL 20 MG/ML 1 ML VIAL IVP STA ×2 (12:12→14:19)
--- NOTE | 2019-10-18 12:44 | ED ---
Abdominal Pain HPI - General Chief Complaint: Abdominal Pain Stated Complaint: Vomiting Time Seen by Provider: 10/18/19 11:15 Source: patient, RN notes reviewed, old records reviewed Mode of arrival: EMS Limitations: no limitations - History of Present Illness Initial Comments: Patient 64-year-old female presents emergency department today fourth time w ithin the past week first vomiting, nausea. Patient's symptoms initially started from withdrawal from being off her Suboxone. Patient reports she's not been able to keep her medications down. When she was last emergency department she was diagnosed with UTI. She states she has not been able to hold down her antibiotics today but didn't take them yesterday. Patient states that she's had no recorded fever or chill. Patient complains of chronic back pain with that of her back and abdominal pain from nausea and vomiting. She also states she's been having a headache. - Related Data Home Medications Medication Instructions Recorded Confirmed Ergocalciferol [Vitamin D2 50,000 unit PO Q7D 03/01/18 10/11/19 (DRISDOL)] levETIRAcetam [Keppra] 500 mg PO BID 03/01/18 10/11/19 Methocarbamol [Robaxin] 500 mg PO BID PRN 07/23/19 10/11/19 hydrOXYzine HCL 25 mg PO HS PRN 07/23/19 10/11/19 Buprenorphine HCl/Naloxone HCl 1 film SL BID 10/11/19 10/11/19 [Suboxone 8 mg-2 mg Sl Film] DULoxetine HCL [Cymbalta] 60 mg PO DAILY 10/11/19 10/11/19 Losartan Potassium 50 mg PO DAILY 10/11/19 10/11/19 Omeprazole 40 mg PO DAILY 10/11/19 10/11/19 Rosuvastatin [Crestor] 10 mg PO HS 10/11/19 10/11/19 cloNIDine HCL [Catapres] 0.1 mg PO DAILY 10/11/19 10/11/19 Previous Rx's Medication Instructions Recorded Metoclopramide [Reglan] 10 mg PO ACHS #12 tab 10/11/19 Cephalexin [Keflex] 500 mg PO Q6H #28 cap 10/16/19 HYDROcodone/APAP 5-325MG [[place] 1 tab PO Q6HR PRN 3 Days #12 tab 10/16/19 5-325] Ondansetron Odt [Zofran Odt] 4 mg PO Q8HR PRN #12 tab 10/16/19 Allergies Allergy/AdvReac Type Severity Reaction Status Date / Time nitrofurantoin AdvReac Abdominal Verified 10/18/19 11:37 [From Macrobid] Pain/Nausea/Vomiting NSAIDS (Non-Steroidal AdvReac Nausea & Verified 10/18/19 11:37 Anti-Inflamma Vomiting Review of Systems ROS Statement: Those systems with pertinent positive or pertinent negative responses have been documented in the HPI. ROS Other: All systems not noted in ROS Statement are negative. Past Medical History Past Medical History: Asthma, Fibromyalgia, Hyperlipidemia, Hypertension, Memory Impairment, Musculoskeletal Disorder, Osteoarthritis (OA), Seizure Disorder Additional Past Medical History / Comment(s): BACK PAIN, SHORT TERM MEMORY LOSS, history of lumbar spine surgery 2 at outside institutions. History of multiple treatments and procedures with interventional pain management chronically. She is on chronic high-dose oral pain medications including morphine and Percocet. with pain management. History of Any Multi-Drug Resistant Organisms: None Reported Past Surgical History: Adenoidectomy, Back Surgery, Breast Surgery, Joint Replacement, Orthopedic Surgery, Tonsillectomy Additional Past Surgical History / Comment(s): , LT HAND SURGERY, RT GANGLION CYST REMOVED, LEEP, COLONOSCOPY, EGD, MIGUEL A. CATARACT WITH LENS IMLANTS,RT BREAST BIOPSY, 2 BACK SURGERIES- ONE WAS A LAMINECTOMY, TOTAL LEFT KNEE Past Anesthesia/Blood Transfusion Reactions: No Reported Reaction Past Psychological History: No Psychological Hx Reported Smoking Status: Current every day smoker Past Alcohol Use History: None Reported Past Drug Use History: None Reported - Past Family History Brother(s) Family Medical History: Cancer Additional Family Medical History / Comment(s): PANCREATITIS Mother Family Medical History: Hypertension, Memory Impairment Additional Family Medical History / Comment(s): ALZHEIMER'S Father Family Medical History: Coronary Artery Disease (CAD) Additional Family Medical History / Comment(s): HEART PROBLEMS-HAD QUAD- CABG, ALCOHOLISM General Exam - General Exam Comments Initial Comments: 64-year-old female. Alert and oriented 3. Limitations: no limitations General appearance: alert Head exam: Present: atraumatic, normocephalic, normal inspection Eye exam: Present: normal appearance, PERRL, EOMI. Absent: scleral icterus, conjunctival injection, periorbital swelling ENT exam: Present: normal exam, mucous membranes moist Neck exam: Present: normal inspection. Absent: tenderness, meningismus, lymphadenopathy Respiratory exam: Present: normal lung sounds bilaterally. Absent: respiratory distress, wheezes, rales, rhonchi, stridor Cardiovascular Exam: Present: regular rate, normal rhythm, normal heart sounds. Absent: systolic murmur, diastolic murmur, rubs, gallop, clicks GI/Abdominal exam: Present: soft, normal bowel sounds. Absent: distended, tenderness, guarding, rebound, rigid Extremities exam: Present: normal inspection, full ROM, normal capillary refill. Absent: tenderness, pedal edema, joint swelling, calf tenderness Back exam: Present: normal inspection Neurological exam: Present: alert, oriented X3, CN II-XII intact Expanded Patient oriented to: Present: person, place, time Speech: Present: fluid speech Cranial nerves: EOM's Intact: Normal Upper motor neuron: Pronator Drift: Normal Sensory exam: Upper Extremity Light Touch: Normal, Lower Extremity Light Touch: Normal Motor strength exam: RUE: 5, LUE: 5, RLE: 5, LLE: 5 Eye Response: (4) open spontaneously Motor Response: (6) obeys commands Verbal Response: (5) oriented Pb Total: 15 Psychiatric exam: Present: normal affect, normal mood Course Vital Signs 10/18/19 10/18/19 10/18/19 11:34 12:28 13:12 Temperature 97.2 F L Pulse Rate 62 63 65 Respiratory 22 18 18 Rate Blood Pressure 236/110 196/87 181/108 O2 Sat by Pulse 100 99 99 Oximetry 10/18/19 10/18/19 10/18/19 14:15 14:50 15:10 Temperature Pulse Rate 86 86 94 Respiratory 18 18 18 Rate Blood Pressure 184/90 182/86 182/99 O2 Sat by Pulse 100 98 98 Oximetry Medical Decision Making - Medical Decision Making 64-year-old female presents today for evaluation for intractable nausea and vomiting. She also has been complaining of headaches. And she has been seen in the emergency department 4 times within the past week for similar complaints. Initial thought was related to withdrawal. HIV Patient is been hypertensive. While here Patient was given pain medication for her headache, and blood pressure medication she continues to be significantly hypertensive. Blood pressure was 263/112 when she arrived. Now 118/112 after hydralazine and labetalol. Patient labwork was reviewed relatively unremarkable. She did have a slight urinary tract infection on last ER visit. Unfortunately urine culture was not completed. The Patient will have urine culture today. She has been taking Keflex and the urine sample is improved. Patient's main complaint is intractable headache and back pain. Patient did have a CT of her brain for the headache and there is no acute changes. Evidence of old infarcts. Patient was informed of these results. I discussed the case with Dr. Dominguez whom discussed case with Sheet too will admit the Patient. - Lab Data Result diagrams: 10/18/19 11:42 10/18/19 11:42 Lab Results 10/18/19 10/18/19 10/18/19 Range/Units 11:42 11:42 11:42 WBC 8.5 (3.8-10.6) k/uL RBC 5.07 (3.80-5.40) m/uL Hgb 14.5 (11.4-16.0) gm/dL Hct 43.9 (34.0-46.0) % MCV 86.6 (80.0-100.0) fL MCH 28.5 (25.0-35.0) pg MCHC 32.9 (31.0-37.0) g/dL RDW 13.7 (11.5-15.5) % Plt Count 250 (150-450) k/uL Neutrophils % 72 % Lymphocytes % 18 % Monocytes % 5 % Eosinophils % 3 % Basophils % 1 % Neutrophils # 6.1 (1.3-7.7) k/uL Lymphocytes # 1.5 (1.0-4.8) k/uL Monocytes # 0.4 (0-1.0) k/uL Eosinophils # 0.2 (0-0.7) k/uL Basophils # 0.1 (0-0.2) k/uL PT (9.0-12.0) sec INR (<1.2) APTT (22.0-30.0) sec Sodium 138 (137-145) mmol/L Potassium 3.9 (3.5-5.1) mmol/L Chloride 107 (98-107) mmol/L Carbon Dioxide 21 L (22-30) mmol/L Anion Gap 10 mmol/L BUN 12 (7-17) mg/dL Creatinine 0.53 (0.52-1.04) mg/dL Est GFR (CKD-EPI)AfAm >90 (>60 ml/min/1.73 sqM) Est GFR (CKD-EPI)NonAf >90 (>60 ml/min/1.73 sqM) Glucose 127 H (74-99) mg/dL Plasma Lactic Acid Boni 1.4 (0.7-2.0) mmol/L Calcium 9.2 (8.4-10.2) mg/dL Total Bilirubin 0.9 (0.2-1.3) mg/dL AST 23 (14-36) U/L ALT 12 (4-34) U/L Alkaline Phosphatase 85 (38-126) U/L Total Protein 6.6 (6.3-8.2) g/dL Albumin 4.0 (3.5-5.0) g/dL Amylase 62 (30-110) U/L Lipase 60 (23-300) U/L Urine Color Urine Appearance (Clear) Urine pH (5.0-8.0) Ur Specific Carey (1.001-1.035) Urine Protein (Negative) Urine Glucose (UA) (Negative) Urine Ketones (Negative) Urine Blood (Negative) Urine Nitrite (Negative) Urine Bilirubin (Negative) Urine Urobilinogen (<2.0) mg/dL Ur Leukocyte Esterase (Negative) Urine RBC (0-5) /hpf Urine WBC (0-5) /hpf Ur Squamous Epith Cells (0-4) /hpf Urine Bacteria (None) /hpf Urine Mucus (None) /hpf 10/18/19 10/18/19 Range/Units 11:42 12:45 WBC (3.8-10.6) k/uL RBC (3.80-5.40) m/uL Hgb (11.4-16.0) gm/dL Hct (34.0-46.0) % MCV (80.0-100.0) fL MCH (25.0-35.0) pg MCHC (31.0-37.0) g/dL RDW (11.5-15.5) % Plt Count (150-450) k/uL Neutrophils % % Lymphocytes % % Monocytes % % Eosinophils % % Basophils % % Neutrophils # (1.3-7.7) k/uL Lymphocytes # (1.0-4.8) k/uL Monocytes # (0-1.0) k/uL Eosinophils # (0-0.7) k/uL Basophils # (0-0.2) k/uL PT 10.4 (9.0-12.0) sec INR 1.0 (<1.2) APTT 25.1 (22.0-30.0) sec Sodium (137-145) mmol/L Potassium (3.5-5.1) mmol/L Chloride (98-107) mmol/L Carbon Dioxide (22-30) mmol/L Anion Gap mmol/L BUN (7-17) mg/dL Creatinine (0.52-1.04) mg/dL Est GFR (CKD-EPI)AfAm (>60 ml/min/1.73 sqM) Est GFR (CKD-EPI)NonAf (>60 ml/min/1.73 sqM) Glucose (74-99) mg/dL Plasma Lactic Acid Boni (0.7-2.0) mmol/L Calcium (8.4-10.2) mg/dL Total Bilirubin (0.2-1.3) mg/dL AST (14-36) U/L ALT (4-34) U/L Alkaline Phosphatase (38-126) U/L Total Protein (6.3-8.2) g/dL Albumin (3.5-5.0) g/dL Amylase (30-110) U/L Lipase (23-300) U/L Urine Color Yellow Urine Appearance Clear (Clear) Urine pH 7.0 (5.0-8.0) Ur Specific Carey 1.014 (1.001-1.035) Urine Protein Negative (Negative) Urine Glucose (UA) Negative (Negative) Urine Ketones Trace H (Negative) Urine Blood Negative (Negative) Urine Nitrite Negative (Negative) Urine Bilirubin Negative (Negative) Urine Urobilinogen <2.0 (<2.0) mg/dL Ur Leukocyte Esterase Large H (Negative) Urine RBC 3 (0-5) /hpf Urine WBC 18 H (0-5) /hpf Ur Squamous Epith Cells 3 (0-4) /hpf Urine Bacteria Rare H (None) /hpf Urine Mucus Few H (None) /hpf 10/18/19 13:27 EKG shows normal sinus rhythm normal EKG. Ventricular rate of 61 beats per minute. Intervals 124 ms. QS duration is 84 ms. QT QTc is 476/479 ms. - Radiology Data Radiology results: report reviewed CT shows and the change exam with bilateral frontoparietal junction and person additional cortical infarcts with right greater than left parietal occipital directions. 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 KUB shows mild stool burn them. No evidence of bowel structure intraperitoneal air. Chest x-ray shows chronic changes without acute cardiac process. Disposition Clinical Impression: Intractable headache, Nausea & vomiting, UTI (urinary tract infection), Hypertension Disposition: ADMITTED IP TO THIS HOSP Condition: Stable Is patient prescribed a controlled substance at d/c from ED?: No Referrals: None,Stated [Primary Care Provider] - 1-2 days Time of Disposition: 15:16
[2019-10-18 12:55] LABS: Basophils # (A) 0.1 k/uL (0-0.2); Basophils % (A) 1 %; Eosinophils # (A) 0.2 k/uL (0-0.7); Eosinophils % (A) 3 %; HCT 43.9 % (34.0-46.0); HGB 14.5 gm/dL (11.4-16.0); Lymphocytes # (A) 1.5 k/uL (1.0-4.8); Lymphocytes % (A) 18 %; MCH 28.5 pg (25.0-35.0); MCHC 32.9 g/dL (31.0-37.0); MCV 86.6 fL (80.0-100.0); Mean Platelet Volume 7.8; Monocytes # (A) 0.4 k/uL (0-1.0); Monocytes % (A) 5 %; Neutrophils # (A) 6.1 k/uL (1.3-7.7); Neutrophils % (A) 72 %; Platelet Count 250 k/uL (150-450); RBC 5.07 m/uL (3.80-5.40); RDW 13.7 % (11.5-15.5); WBC 8.5 k/uL (3.8-10.6)
[2019-10-18 13:03] LABS: ALT 12 U/L (4-34); AST 23 U/L (14-36); African American GFR (CKD) >90 (>60 ml/min/1.73 sqM); Alkaline Phosphatase 85 U/L (38-126); Amylase 62 U/L (30-110); Anion Gap 10 mmol/L; Blood Urea Nitrogen 12 mg/dL (7-17); Calcium 9.2 mg/dL (8.4-10.2); Carbon Dioxide 21 mmol/L (22-30); Chloride 107 mmol/L (98-107); Glucose 127 mg/dL (74-99); Non-African American GFR(CKD) >90 (>60 ml/min/1.73 sqM); Sodium 138 mmol/L (137-145); Total Bilirubin 0.9 mg/dL (0.2-1.3); Total Protein 6.6 g/dL (6.3-8.2)
[2019-10-18 13:04] LABS: Partial Thromboplastin Time 25.1 sec (22.0-30.0); Prothrombin Time 10.4 sec (9.0-12.0)
[2019-10-18 13:12] LABS: Potassium 3.9 mmol/L (3.5-5.1)
[2019-10-18 13:54] LABS: Appearance,Urine Clear (Clear); Bacteria,Urine Rare /hpf; Bilirubin,Urine Negative (Negative); Blood,Urine Negative (Negative); Color,Urine Yellow; Glucose,Urine (UA) Negative (Negative); Ketones,Urine Trace (Negative); Leukocyte Esterase,Urine Large (Negative); Mucus,Urine Few /hpf; Nitrite,Urine Negative (Negative); Protein,Urine Negative (Negative); RBC,Urine 3 /hpf (0-5); Specific Gravity,Urine 1.014 (1.001-1.035); Squamous Epithelial Cell,Urine 3 /hpf (0-4); Urobilinogen,Urine <2.0 mg/dL (<2.0); WBC,Urine 18 /hpf (0-5)
--- NOTE | 2019-10-18 14:01 | XR ---
EXAMINATION TYPE: XR chest 2V DATE OF EXAM: 10/18/2019 COMPARISON: 07/23/2019 HISTORY: 64 year-old female with abdominal pain, nausea and vomiting TECHNIQUE: PA and lateral views FINDINGS: Heart normal size. Rightward patient rotation A normal cardiac and mediastinal contours. Mild diffuse interstitial prominence is unchanged. No consolidation or pleural effusion. IMPRESSION: Chronic changes without acute cardiopulmonary process.
--- NOTE | 2019-10-18 14:03 | XR ---
EXAMINATION TYPE: XR KUB DATE OF EXAM: 10/18/2019 CLINICAL DATA: 64 year-old female with a nausea and vomiting, pain, PHH COMPARISON: 10/16/2019 FINDINGS: Lung bases are clear. No evidence for free intraperitoneal air. No dilated small bowel or air-fluid levels. Scattered air and stool seen throughout the colon. Mild s tool burden. No suspicious calcifications identified. L5-S1 posterior and interbody fusion. Partially visualized right hip hemiarthroplasty. IMPRESSION: 1. Mild stool burden. 2.No evidence of bowel obstruction or free intraperitoneal air.
[2019-10-18] MEDS ORDERED: METOCLOPRAMIDE 5 MG/ML 2 ML VIAL IVP STA (14:05)
[2019-10-18] MEDS ORDERED: diphenhydrAMINE 50 MG/ML 1 ML VIAL IVP STA ×2 (14:05→15:31)
--- NOTE | 2019-10-18 14:57 | CT ---
EXAMINATION TYPE: CT brain wo con DATE OF EXAM: 10/18/2019 COMPARISON: 06/26/2019 HISTORY: 64-year-old female intractable Headache. TECHNIQUE: Examination was done in axial plane without intravenous contrast. Coronal and sagittal r econstructions performed. CT DLP: 1099.4 mGycm Automated exposure control for dose reduction was used. FINDINGS: There is no evidence of acute intracranial hemorrhage, acute ischemic changes, mass, mass-effect, or extra-axial fluid collection. There is no effacement of cerebral sulci or basal subarachnoid cister ns. There is no hydrocephalus. There is no midline shift. Pop-white matter distinction is preserv ed. Encephalomalacia along the bilateral superior frontoparietal junctions and old cortical infarcts righ t greater than left parieto-occipital junctions redemonstrated. Also small cortical infarcts within t he cerebellar hemispheres. Mild bifrontal atrophy. Additional old lacunar infarct right caudate head. Leftward nasal septal deviation. Paranasal sinuses and mastoid air cells well pneumatized. Orbits and globes are intact. IMPRESSION: Unchanged exam with bilateral frontoparietal junction infarcts and additional cortical infarcts right greater than left parieto-occipital junctions. Chronic small bilateral cerebellar infarcts and old l acunar infarct right caudate head. No acute intracranial abnormality seen.
[2019-10-18] MEDS ORDERED: MORPHINE SULFATE 4 MG/ML SYRINGE IVP STA (14:58)
[2019-10-18] MEDS ORDERED: KETOROLAC 30 MG/ML 1 ML VIAL IVP STA (14:58)
[2019-10-18] MEDS ORDERED: cefTRIAXone IN SWFI 1,000 MG/10 ML SYRINGE IVP STA (15:07)
[2019-10-18] MEDS ORDERED: ONDANSETRON 4 MG/2 ML VIAL IVP PRN ×2 (15:29→15:35)
[2019-10-18 15:30] LABS: Amphetamine Screen,Urine Not Detected (NotDetected); Barbiturate Screen,Urine Not Detected (NotDetected); Benzodiazepines Screen,Urine Not Detected (NotDetected); Cocaine Screen,Urine Not Detected (NotDetected); Methadone Screen, Urine Not Detected (NotDetected); Opiate Screen,Urine Detected (NotDetected); Oxycodone Screen, Urine Not Detected (NotDetected); Phencyclidine Screen,Urine Not Detected (NotDetected); Tricyclic Antidepressant,Urine Not Detected (NotDetected); Urn Cannabinoid Scrn Not Detected (NotDetected)
[2019-10-18] MEDS ORDERED: cloNIDine HCL 0.1 MG TAB PO SCH (15:30)
[2019-10-18] MEDS ORDERED: amLODIPine 10 MG TAB PO SCH (15:30)
[2019-10-18] MEDS ORDERED: ACETAMINOPHEN TAB 325 MG TAB PO PRN ×2 (15:35→18:42)
[2019-10-18] MEDS ORDERED: NALOXONE 0.4 MG/ML 1 ML VIAL IV PRN (15:35)
[2019-10-18] MEDS ORDERED: KETOROLAC 30 MG/ML 1 ML VIAL IVP PRN (15:35)
[2019-10-18] MEDS ORDERED: IBUPROFEN 400 MG TAB PO PRN (15:35)
[2019-10-18] MEDS ORDERED: SODIUM CHLORIDE 0.9% 1,000 ML IV SCH (15:45)
[2019-10-18] MEDS ORDERED: METOPROLOL TARTRATE 25 MG TAB PO SCH ×2 (15:45→21:00)
[2019-10-18] MEDS: LOSARTAN 50 MG TAB PO SCH (16:11)
[2019-10-18] MEDS: oxyCODONE-APAP 5-325MG 1 EACH TAB PO PRN (17:21)
[2019-10-18] MEDS ORDERED: ALPRAZolam 0.5 MG TAB PO STA (17:56)
[2019-10-18] MEDS ORDERED: hydrALAZINE HCL 25 MG TAB PO PRN (17:57)
[2019-10-18] MEDS: DEXTROSE 5%-0.45% NACL 1,000 ML IV SCH (18:28)
[2019-10-18] MEDS ORDERED: TRIMETHOBENZAMIDE 100 MG/ML 2 ML VIAL IM PRN (18:40)
--- NOTE | 2019-10-18 18:45 | P.HPIM ---
History of Present Illness This is a pleasant 64 years old female with past medical history of hypertension, hyperlipidemia, fibromyalgia, asthma, memory impairment, osteoarthritis, seizure disorder, chronic back pain she is status post lumbar spine surgery 2, she was on high-dose oral pain medication including morphine and Percocet This is the fourth of the patient returned to the hospital for similar complaints, this is the first time for nausea vomiting and headache. Patient says that she has headache for 1-1 and half week duration, usually it is on the frontal area more to the right side, however this time it is on the back of the head, severe, nonspecific, nonradiating, not associated with limb weakness or numbness or blurred vision. No slurred speech. It is associated with recurrent nausea vomiting for about more than a week to week and a half. for example Since last night she vomited about 6-8 times, with no blood. She is not able to keep food or drinks down. She took her blood pressure medication of losartan and clonidine however she throwing them up. Also patient says that she fell about one and a half week ago and she hit her head on the frontal area. Of note patient has a significant unsteady gait for 2 months, last month she was in the hospital when her legs gave away, she went to rehab when she regained her ability to walk but she still feeling bilateral numbness in her feet Is also complaining of from polyuria. No dysuria Used to follow-up with Dr. Kim But he stopped seeing her and stopped given her Suboxone since last month, she still has some pills left at home and last time she used Suboxone was more than one week ago as she told me Vitas looks stable. Blood pressure on admission was 236/110, currently 182/86. Labs are unremarkable CBC, BMP, liver enzymes, INR. Urinalysis is a suspicious for UTI however patient was recently started on antibiotic. CT of the brain: No acute process The radiologist, bilateral frontoparietal junction infarct and cortical infarct more on the right side. Chronic bilateral cerebellar infarcts. KUB bowel obstruction or free air. Chest x-ray: No acute process Chest x-ray: No acute process In the emergency room she received ceftriaxone, several doses of IV hydralazine and labetalol. She was given normal saline at 100 ml/hr per hour Review of Systems CONSTITUTIONAL: No fever, no malaise, no fatigue. HEENT: No recent visual problems or hearing problems. Denied any sore throat. CARDIOVASCULAR: No orthopnea, PND, no palpitations, no syncope. PULMONARY: No shortness of breath, no cough, no hemoptysis. GASTROINTESTINAL: no abdominal pain. Normoactive bowel sounds. NEUROLOGICAL: no weakness, no numbness. HEMATOLOGICAL: Denies any bleeding or petechiae. GENITOURINARY: Denies any burning micturition. MUSCULOSKELETAL/RHEUMATOLOGICAL: Denies any joint pain, swelling, or any muscle pain. ENDOCRINE: Denies any polydipsia. Past Medical History Past Medical History: Asthma, Fibromyalgia, Hyperlipidemia, Hypertension, Memory Impairment, Musculoskeletal Disorder, Osteoarthritis (OA), Seizure Disorder Additional Past Medical History / Comment(s): BACK PAIN, SHORT TERM MEMORY LOSS, history of lumbar spine surgery 2 at outside institutions. History of multiple treatments and procedures with interventional pain management chronically. She is on chronic high-dose oral pain medications including morphine and Percocet. with pain management. History of Any Multi-Drug Resistant Organisms: None Reported Past Surgical History: Adenoidectomy, Back Surgery, Breast Surgery, Joint Replacement, Orthopedic Surgery, Tonsillectomy Additional Past Surgical History / Comment(s): , LT HAND SURGERY, RT GANGLION CYST REMOVED, LEEP, COLONOSCOPY, EGD, MIGUEL A. CATARACT WITH LENS IMLANTS,RT BREAST BIOPSY, 2 BACK SURGERIES- ONE WAS A LAMINECTOMY, TOTAL LEFT KNEE Past Anesthesia/Blood Transfusion Reactions: No Reported Reaction Past Psychological History: No Psychological Hx Reported Smoking Status: Current every day smoker Past Alcohol Use History: None Reported Past Drug Use History: None Reported - Past Family History Brother(s) Family Medical History: Cancer Additional Family Medical History / Comment(s): PANCREATITIS Mother Family Medical History: Hypertension, Memory Impairment Additional Family Medical History / Comment(s): ALZHEIMER'S Father Family Medical History: Coronary Artery Disease (CAD) Additional Family Medical History / Comment(s): HEART PROBLEMS-HAD QUAD- CABG, ALCOHOLISM Medications and Allergies Home Medications Medication Instructions Recorded Confirmed Type Ergocalciferol [Vitamin D2 50,000 unit PO Q7D 03/01/18 10/18/19 History (DRISDOL)] levETIRAcetam [Keppra] 500 mg PO BID 03/01/18 10/18/19 History Methocarbamol [Robaxin] 500 mg PO BID PRN 07/23/19 10/18/19 History hydrOXYzine HCL 25 mg PO HS PRN 07/23/19 10/18/19 History Buprenorphine HCl/Naloxone HCl 1 film SL BID 10/11/19 10/18/19 History [Suboxone 8 mg-2 mg Sl Film] DULoxetine HCL [Cymbalta] 60 mg PO DAILY 10/11/19 10/18/19 History Losartan Potassium 50 mg PO DAILY 10/11/19 10/18/19 History Metoclopramide [Reglan] 10 mg PO ACHS #12 tab 10/11/19 10/18/19 Rx Omeprazole 40 mg PO DAILY 10/11/19 10/18/19 History Rosuvastatin [Crestor] 10 mg PO HS 10/11/19 10/18/19 History cloNIDine HCL [Catapres] 0.1 mg PO DAILY 10/11/19 10/18/19 History Cephalexin [Keflex] 500 mg PO Q6H #28 cap 10/16/19 10/18/19 Rx HYDROcodone/APAP 5-325MG [[place] 1 tab PO Q6HR PRN 3 Days #12 tab 10/16/19 10/18/19 Rx 5-325] Ondansetron Odt [Zofran Odt] 4 mg PO Q8HR PRN #12 tab 10/16/19 10/18/19 Rx Allergies Allergy/AdvReac Type Severity Reaction Status Date / Time nitrofurantoin AdvReac Abdominal Verified 10/18/19 11:37 [From Macrobid] Pain/Nausea/Vomiting NSAIDS (Non-Steroidal AdvReac Nausea & Verified 10/18/19 11:37 Anti-Inflamma Vomiting Physical Exam Vitals: Vital Signs Temp Pulse Resp BP Pulse Ox 10/18/19 14:50 86 18 182/86 98 10/18/19 14:15 86 18 184/90 100 10/18/19 13:12 65 18 181/108 99 10/18/19 12:28 63 18 196/87 99 10/18/19 11:34 97.2 F L 62 22 236/110 100 Intake and Output 10/18/19 10/18/19 10/18/19 06:59 14:59 22:59 Other: Weight 77.111 kg GENERAL: The patient is alert and oriented x3, not in any acute distress. Well developed, well nourished. HEENT: Pupils are round and equally reacting to light. EOMI. No scleral icterus. No conjunctival pallor. Normocephalic, atraumatic. No pharyngeal erythema. No thyromegaly. CARDIOVASCULAR: S1 and S2 present. No murmurs, rubs, or gallops. PULMONARY: Chest is clear to auscultation, no wheezing or crackles. ABDOMEN: Soft, nontender, nondistended, normoactive bowel sounds. No palpable organomegaly. MUSCULOSKELETAL: No joint swelling or deformity. EXTREMITIES: No cyanosis, clubbing, or pedal edema. NEUROLOGICAL: Gross neurological examination did not reveal any focal deficits. cranial nn are grossly intact, motor strength 5/5 and sensation is intact in all four extremities , meningeal signs are absent SKIN: No rashes. No petechiae -gait: could walk holding her iv stand Results CBC & Chem 7: 10/18/19 11:42 10/18/19 11:42 Labs: Abnormal Lab Results - Last 24 Hours (Table) 10/18/19 10/18/19 Range/Units 11:42 12:45 Carbon Dioxide 21 L (22-30) mmol/L Glucose 127 H (74-99) mg/dL Urine Ketones Trace H (Negative) Ur Leukocyte Esterase Large H (Negative) Urine WBC 18 H (0-5) /hpf Urine Bacteria Rare H (None) /hpf Urine Mucus Few H (None) /hpf Assessment and Plan Assessment: uncontrolled hypertension. Hypertensive urgency, with headache Nausea vomiting Acute urinary tract infection Multiple cerebral infarcts and cerebellar infarcts on the CAT scan of the head. Hyperlipidemia Fibromyalgia Asthma, not in acute process Memory impairment Osteoarthritis Seizure disorder Chronic back pain status post lumbar spine surgery 2, multiple pain medications Plan: This is a pleasant 64 years old female who presents with uncontrolled high blood pressure. headache, nausea vomiting and also CVA. 4 normal saline from 100 down to 50 L/h, restart her home medication of losartan. stop clonidine and start metoprolol. Call neurology consult. Continue the neuro check. Labs and medication were reviewed.. Continue same treatment. Continue with symptomatic treatment. Resume home medication. Monitor lytes and vitals. DVT and GI prophylaxis. Further recommendations of the clinical course of the patient DVT prophylaxis: consider Subcutaneous heparin once her BP is controlled , as this is relative contra-indication , c/w mechanical prophylaxis. GI Prophylaxis: Pepcid PT/OT: Pending Prognosis is guarded
[2019-10-19] MEDS: oxyCODONE-APAP 5-325MG 1 EACH TAB PO PRN ×3 (01:12→20:38)
[2019-10-19] MEDS: DEXTROSE 5%-0.45% NACL 1,000 ML IV SCH (06:43)
[2019-10-19] MEDS ORDERED: PANTOPRAZOLE 40 MG/10 ML VIAL IV SCH (09:00)
[2019-10-19 09:25] LABS: African American GFR (CKD) >90 (>60 ml/min/1.73 sqM); Anion Gap 9 mmol/L; Blood Urea Nitrogen 6 mg/dL (7-17); Calcium 9.4 mg/dL (8.4-10.2); Carbon Dioxide 25 mmol/L (22-30); Chloride 106 mmol/L (98-107); Glucose 96 mg/dL (74-99); Non-African American GFR(CKD) >90 (>60 ml/min/1.73 sqM); Potassium 3.7 mmol/L (3.5-5.1); Sodium 140 mmol/L (137-145)
[2019-10-19] MEDS: LOSARTAN 50 MG TAB PO SCH (09:57)
[2019-10-19 10:52] LABS: Basophils # (A) 0.1 k/uL (0-0.2); Basophils % (A) 1 %; Eosinophils # (A) 0.2 k/uL (0-0.7); Eosinophils % (A) 3 %; HCT 49.5 % (34.0-46.0); HGB 15.5 gm/dL (11.4-16.0); Lymphocytes # (A) 2.4 k/uL (1.0-4.8); Lymphocytes % (A) 36 %; MCH 28.2 pg (25.0-35.0); MCHC 31.4 g/dL (31.0-37.0); MCV 89.9 fL (80.0-100.0); Mean Platelet Volume 7.2; Monocytes # (A) 0.5 k/uL (0-1.0); Monocytes % (A) 7 %; Neutrophils # (A) 3.4 k/uL (1.3-7.7); Neutrophils % (A) 50 %; Platelet Count 290 k/uL (150-450); RBC 5.51 m/uL (3.80-5.40); RDW 14.2 % (11.5-15.5); WBC 6.7 k/uL (3.8-10.6)
--- NOTE | 2019-10-19 11:12 | P.PN ---
Subjective This is a pleasant 64 years old female with past medical history of hypertension, hyperlipidemia, fibromyalgia, asthma, memory impairment, osteoarth ritis, seizure disorder, chronic back pain she is status post lumbar spine surgery 2, she was on high-dose oral pain medication including morphine and Percocet This is the fourth of the patient returned to the hospital for similar complaints, this is the first time for nausea vomiting and headache. Patient says that she has headache for 1-1 and half week duration, usually it is on the frontal area more to the right side, however this time it is on the back of the head, severe, nonspecific, nonradiating, not associated with limb weakness or numbness or blurred vision. No slurred speech. It is associated with recurrent nausea vomiting for about more than a week to week and a half. for example Since last night she vomited about 6-8 times, with no blood. She is not able to keep food or drinks down. She took her blood pressure medication of losartan and clonidine however she throwing them up. Also patient says that she fell about one and a half week ago and she hit her head on the frontal area. Of note patient has a significant unsteady gait for 2 months, last month she was in the hospital when her legs gave away, she went to rehab when she regained her ability to walk but she still feeling bilateral numbness in her feet Is also complaining of from polyuria. No dysuria Used to follow-up with Dr. Kim But he stopped seeing her and stopped given her Suboxone since last month, she still has some pills left at home and last time she used Suboxone was more than one week ago as she told me Vitas looks stable. Blood pressure on admission was 236/110, currently 182/86. Labs are unremarkable CBC, BMP, liver enzymes, INR. Urinalysis is a suspicious for UTI however patient was recently started on antibiotic. CT of the brain: No acute process The radiologist, bilateral frontoparietal junction infarct and cortical infarct more on the right side. Chronic bilateral cerebellar infarcts. KUB bowel obstruction or free air. Chest x-ray: No acute process Chest x-ray: No acute process In the emergency room she received ceftriaxone, several doses of IV hydralazine and labetalol. She was given normal saline at 100 ml/hr per hour 10/19/2019 Patient feels better today, her nausea vomiting have stopped and she is tolerating diet well. Her blood pressure is improved after starting her blood pressure medication. Gait is at baseline. No chest pain or dyspnea. No abdo belia pain. However she feels generally weak and she has recurrent symptoms over the last few days. She still needs monitoring. Her blood pressures still labile although is better controlled and still needs monitoring. This morning her blood pressure was 106/62 with heart rate of 83. Her CBC and BMP were unremarkable. Urine culture still pending and she remains on Rocephin. Discuss case with the neurologist, no new orders as her structure old. Review of system: CONSTITUTIONAL: No fever, no malaise, no fatigue. HEENT: No recent visual problems or hearing problems. Denied any sore throat. CARDIOVASCULAR: No orthopnea, PND, no palpitations, no syncope. PULMONARY: No shortness of breath, no cough, no hemoptysis. GASTROINTESTINAL: no abdominal pain. Normoactive bowel sounds. NEUROLOGICAL: no weakness, no numbness. HEMATOLOGICAL: Denies any bleeding or petechiae. GENITOURINARY: Denies any burning micturition. MUSCULOSKELETAL/RHEUMATOLOGICAL: Denies any joint pain, swelling, or any muscle pain. ENDOCRINE: Denies any polydipsia. Active Medications Generic Name Dose Route Start Last Admin Trade Name Freq PRN Reason Stop Dose Admin Acetaminophen 325 mg 10/18/19 18:42 Tylenol Tab PO Q6HR PRN Mild Pain or Fever > 100.5 Acetaminophen/Butalbital/Caffeine 1 each 10/18/19 18:41 Fioricet 50-325-40 PO Q4HR PRN Headache Hydralazine HCl 25 mg 10/18/19 17:57 10/18/19 18:28 Apresoline PO 25 mg TID PRN Administration Blood Pressure - High Dextrose/Sodium Chloride 1,000 mls @ 75 mls/hr 10/18/19 18:00 10/19/19 06:43 Dextrose 5%-1/2ns Iv Soln IV 75 mls/hr .[id number] WILLIAM Administration Ceftriaxone Sodium 1 gm/ 50 mls @ 100 mls/hr 10/19/19 09:00 10/19/19 09:57 Sodium Chloride IVPB 100 mls/hr Q24HR WILLIAM Administration Ibuprofen 400 mg 10/18/19 15:35 Motrin PO Q6HR PRN Mild Pain or Fever > 100.5 Ketorolac Tromethamine 30 mg 10/18/19 15:35 Toradol IVP 10/23/19 15:36 Q6HR PRN Moderate Pain Losartan Potassium 50 mg 10/18/19 15:30 10/19/19 09:57 Cozaar PO 50 mg DAILY WILLIAM Administration Naloxone HCl 0.2 mg 10/18/19 15:35 Narcan IV Q2M PRN Opioid Reversal Oxycodone/Acetaminophen 1 each 10/18/19 15:35 10/19/19 06:43 Percocet 5-325 PO 1 each Q4HR PRN Administration Severe Pain Pantoprazole Sodium 40 mg 10/19/19 09:00 10/19/19 09:57 Protonix IV 40 mg DAILY WILLIAM Administration Trimethobenzamide HCl 100 mg 10/18/19 18:40 Tigan IM Q6HR PRN Nausea And Vomiting Objective - Vital Signs Vital signs: Vital Signs Temp 98.5 F 10/19/19 04:00 Pulse 83 10/19/19 04:00 Resp 17 10/19/19 04:00 BP 106/62 10/19/19 04:00 Pulse Ox 98 10/19/19 04:00 Intake & Output 10/18/19 10/19/19 10/19/19 18:59 06:59 18:59 Intake Total 0 375 0 Balance 0 375 0 Weight 77.111 kg 74 kg Intake: Intake, IV Titration 375 Amount Dextrose 5%-0.45% NaCl 1, 375 000 ml @ 75 mls/hr IV . [id number] WILLIAM Rx#:[id number] Oral 0 0 Other: Voiding Method Toilet # Voids 2 - Exam GENERAL: The patient is alert and oriented x3, not in any acute distress. Well developed, well nourished. HEENT: Pupils are round and equally reacting to light. EOMI. No scleral icterus. No conjunctival pallor. Normocephalic, atraumatic. No pharyngeal erythema. No thyromegaly. CARDIOVASCULAR: S1 and S2 present. No murmurs, rubs, or gallops. PULMONARY: Chest is clear to auscultation, no wheezing or crackles. ABDOMEN: Soft, nontender, nondistended, normoactive bowel sounds. No palpable organomegaly. MUSCULOSKELETAL: No joint swelling or deformity. EXTREMITIES: No cyanosis, clubbing, or pedal edema. NEUROLOGICAL: Gross neurological examination did not reveal any focal deficits. cranial nn are grossly intact, motor strength 5/5 and sensation is intact in all four extremities , meningeal signs are absent SKIN: No rashes. No petechiae -gait: Normal today with some waddling gait which looks like her baseline - Labs CBC & Chem 7: 10/19/19 10:29 10/19/19 07:09 Labs: Abnormal Lab Results - Last 24 Hours (Table) 10/18/19 10/18/19 10/18/19 Range/Units 11:42 12:45 12:45 RBC (3.80-5.40) m/uL Hct (34.0-46.0) % Carbon Dioxide 21 L (22-30) mmol/L BUN (7-17) mg/dL Glucose 127 H (74-99) mg/dL Urine Ketones Trace H (Negative) Ur Leukocyte Esterase Large H (Negative) Urine WBC 18 H (0-5) /hpf Urine Bacteria Rare H (None) /hpf Urine Mucus Few H (None) /hpf Urine Opiates Screen Detected H (NotDetected) 10/19/19 10/19/19 Range/Units 07:09 10:29 RBC 5.51 H (3.80-5.40) m/uL Hct 49.5 H (34.0-46.0) % Carbon Dioxide (22-30) mmol/L BUN 6 L (7-17) mg/dL Glucose (74-99) mg/dL Urine Ketones (Negative) Ur Leukocyte Esterase (Negative) Urine WBC (0-5) /hpf Urine Bacteria (None) /hpf Urine Mucus (None) /hpf Urine Opiates Screen (NotDetected) Microbiology - Last 24 Hours (Table) 10/18/19 12:45 Urine Culture - Preliminary Urine,Voided Assessment and Plan Assessment: uncontrolled hypertension. Hypertensive urgency, with headache Nausea vomiting Acute urinary tract infection Multiple cerebral infarcts and cerebellar infarcts on the CAT scan of the head. Hyperlipidemia Fibromyalgia Asthma, not in acute process Memory impairment Osteoarthritis Seizure disorder Chronic back pain status post lumbar spine surgery 2, multiple pain medications Plan: This is a pleasant 64 years old female who presents with uncontrolled high blood pressure. headache, nausea vomiting and also CVA. Continue with half-normal saline, continue with Fioricet., restart her home medication of losartan. Hold metoprolol. Call neurology consult. Labs and medication were reviewed.. Continue same treatment. Continue with symptomatic treatment. Resume home medication. Monitor lytes and vitals. DVT and GI prophylaxis. Further recommendations of the clinical course of the patient DVT prophylaxis: consider Subcutaneous heparin once her BP is controlled , as this is relative contra-indication , c/w mechanical prophylaxis. GI Prophylaxis: Pepcid PT/OT: Pending Prognosis is guarded Possible discharge in 24-48 hours if remains stable and improving
[2019-10-19 11:31] LABS: Cholesterol 172 mg/dL (<200); HDL Cholesterol 60 mg/dL (40-60); LDL Cholesterol,Calculated 84 mg/dL (0-99); Triglycerides 138 mg/dL (<150)
--- NOTE | 2019-10-19 12:05 | P.CNNES ---
History of Present Illness Consult date: 10/19/19 Requesting physician: Lalit E Valeria Reason for Consult: Headache, nausea vomiting, multiple CVA on CT head(old) History of Present Illness: Patient is a 64-year-old female, who came to the hospital because of intermitten t nausea and vomiting of 1 week duration off and on. Patient states that she would start throwing up, then it will subside and she would take some fluids and meals, but then starts going up again. She also has been having abdominal pain. Patient denies any other focal neurological symptoms with it. Patient came to ER. Patient underwent computed tomography scan of the head, which revealed unch anged exam with bilateral frontal parietal junction infarcts and additional cortical infarcts right greater than left parieto-occipital junctions,. Chronic small bilateral cerebellar infarcts and old lacunar infarcts right caudate head. No acute intracranial process. KUB showed mild stool burden. No evidence of bowel obstruction or free air. Chest x-ray showed chronic changes without acute cardiopulmonary process. EKG showed normal sinus rhythm. Patient's blood test shows normal Chem-7, liver panel, TSH. Patient's cholesterol is 172, LDL 84, HDL 60 and triglycerides 138. Patient states that she is feeling better today, and was able to eat her breakfast today. 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 At that time she presented to the hospital with inability to walk, did not know where she was at, confused, even could not eat. She was given high-dose steroids. She used to follow-up with Dr. Sun, neurologist in the past. Patient states that as a result of this ADEM, patient has developed short-term memory issues. Sometimes she mixes up although she can remember most of things that she should remember. She cannot multitask, as if she is doing multiple things, she will forget. Like if she is heating coffee, and she goes to bathroom, she would forget that she has put coffee for heating. Later on she would remember it. Patient also states that about couple months ago she was admitted because she has problems with walking, and required transfer to rehabilitation facility. Her MRI of lumbar spine from 07/26/2019 showed multilevel spondylitic changes. Mild degenerative first-degree L4 5 spondylolisthesis. No spinal stenosis. Patient states she has history of failed back surgery. Patient's previous MRI of the cervical spine from 09/24/2016 showed loss of normal cervical curvature with multilevel spondylolisthesis and degenerative change causing multilevel effacement of the anterior thecal sac. Patient has previous MRI of the brain from 2017 which I reviewed, is essentially unchanged as compared to the CT from now. Review of Systems As above in detail. Denies any new focal symptoms. Past Medical History Past Medical History: Asthma, Fibromyalgia, Hyperlipidemia, Hypertension, Memory Impairment, Musculoskeletal Disorder, Osteoarthritis (OA), Seizure Disorder Additional Past Medical History / Comment(s): BACK PAIN, SHORT TERM MEMORY LOSS, history of lumbar spine surgery 2 at outside institutions. History of multiple treatments and procedures with interventional pain management chronically. She is on chronic high-dose oral pain medications including morphine and Percocet. with pain management. History of Any Multi-Drug Resistant Organisms: None Reported Past Surgical History: Adenoidectomy, Back Surgery, Breast Surgery, Joint Replacement, Orthopedic Surgery, Tonsillectomy Additional Past Surgical History / Comment(s): , LT HAND SURGERY, RT GANGLION CYST REMOVED, LEEP, COLONOSCOPY, EGD, MIGUEL A. CATARACT WITH LENS IMLANTS,RT BREAST BIOPSY, 2 BACK SURGERIES- ONE WAS A LAMINECTOMY, TOTAL LEFT KNEE Past Anesthesia/Blood Transfusion Reactions: No Reported Reaction Past Psychological History: No Psychological Hx Reported Smoking Status: Current every day smoker Past Alcohol Use History: None Reported Past Drug Use History: None Reported - Past Family History Brother(s) Family Medical History: Cancer Additional Family Medical History / Comment(s): PANCREATITIS Mother Family Medical History: Hypertension, Memory Impairment Additional Family Medical History / Comment(s): ALZHEIMER'S Father Family Medical History: Coronary Artery Disease (CAD) Additional Family Medical History / Comment(s): HEART PROBLEMS-HAD QUAD- CABG, ALCOHOLISM Medications and Allergies Home Medications Medication Instructions Recorded Confirmed Type Ergocalciferol [Vitamin D2 50,000 unit PO Q7D 03/01/18 10/18/19 History (DRISDOL)] Acetaminophen Tab [Tylenol] 325 mg PO Q6HR PRN #30 tab 10/20/19 Rx Butalb/APAP/Caff 50-325-40Mg 1 each PO Q12HR PRN 2 Days #4 tab 10/20/19 Rx [Fioricet 50-325-40] DULoxetine HCL [Cymbalta] 60 mg PO DAILY #30 cap 10/20/19 Rx Ibuprofen [Motrin] 400 mg PO Q6HR PRN 5 Days #20 tab 10/20/19 Rx Losartan Potassium 50 mg PO DAILY #30 10/20/19 10/18/19 Rx Omeprazole 40 mg PO DAILY #30 cap 10/20/19 Rx Ondansetron Odt [Zofran ODT] 4 mg PO Q8HR PRN #90 tab 10/20/19 Rx Rosuvastatin [Crestor] 10 mg PO HS #30 tab 10/20/19 Rx amLODIPine [Norvasc] 5 mg PO DAILY #30 tab 10/20/19 Rx diphenhydrAMINE [Benadryl] 25 mg PO BID PRN 7 Days #14 capsule 10/20/19 Rx levETIRAcetam [Keppra] 500 mg PO BID #60 tab 10/20/19 Rx Allergies Allergy/AdvReac Type Severity Reaction Status Date / Time nitrofurantoin AdvReac Abdominal Verified 10/18/19 11:37 [From Macrobid] Pain/Nausea/Vomiting NSAIDS (Non-Steroidal AdvReac Nausea & Verified 10/18/19 11:37 Anti-Inflamma Vomiting Physical Examination - Vital Signs Vital Signs: Vital Signs Temp Pulse Pulse Resp BP BP Pulse Ox 10/19/19 04:00 98.5 F 83 17 106/62 98 10/19/19 00:00 98.4 F 85 17 128/90 97 10/18/19 20:00 98.4 F 95 17 167/82 96 10/18/19 17:59 96 18 10/18/19 16:12 98.3 F 89 18 183/82 98 10/18/19 16:01 98.6 F 96 20 202/95 10/18/19 15:10 94 18 182/99 98 10/18/19 14:50 86 18 182/86 98 10/18/19 14:15 86 18 184/90 100 10/18/19 13:12 65 18 181/108 99 10/18/19 12:28 63 18 196/87 99 Intake and Output 10/18/19 10/19/19 10/19/19 22:59 06:59 14:59 Intake Total 0 375 0 Balance 0 375 0 Intake: Intake, IV Titration 375 Amount Dextrose 5%-0.45% NaCl 1, 375 000 ml @ 75 mls/hr IV . [id number] [facility] Rx#:[id number] Oral 0 0 Other: Voiding Method Toilet Toilet # Voids 2 Weight 77.111 kg 74 kg On examination patient is an elderly female, in no acute distress. Patient is alert and awake fairly well oriented. Her speech and language functions are normal. Attention and concentration fund of knowledge is adequate. Detail cognitive function is 10 deferred. On cranial nerve examination pupils are round and reacting to light, visual aquino are full, extraocular muscles are intact. Face is symmetric and tongue protrudes the midline. On muscle strength testing there is no pronator drift and the strength is normal in arms and legs distally and proximally. Reflexes are symmetric and 2+ and plantars are downgoing. Sensory touch is equal with no neglect on double simultaneous stimulation. No ataxia for [id number] testing. Tone and bulk of muscles normal. No obvious bruit or murmur. Results - Laboratory Findings CBC and BMP: 10/19/19 10:29 10/20/19 06:21 Abnormal Lab Findings: Abnormal Labs 10/18/19 10/18/19 10/18/19 11:42 12:45 12:45 RBC Hct Carbon Dioxide 21 L BUN Glucose 127 H Urine Ketones Trace H Ur Leukocyte Esterase Large H Urine WBC 18 H Urine Bacteria Rare H Urine Mucus Few H Urine Opiates Screen Detected H 10/19/19 10/19/19 07:09 10:29 RBC 5.51 H Hct 49.5 H Carbon Dioxide BUN 6 L Glucose Urine Ketones Ur Leukocyte Esterase Urine WBC Urine Bacteria Urine Mucus Urine Opiates Screen Assessment and Plan Assessment: * 64-year-old female with 1 week history of intermittent nausea and vomiting, with some abdominal pain. Her examination otherwise is completely nonfocal. Do not believe her symptoms are related to neurological issue. Need to rule out primary gastrointestinal condition. * History of ADEM * Abnormal computed tomography scan of head, due to above. * Short-term memory loss, due to above. Plan: * We checked B12 was 1053, folate >24, A1c 6.0, TFT normal, Cholesterol 172, LDL 84, HDL 60, TG 138. These testes performed due to her short-term memory issues. * No other neurological workup indicated. * Consider further evaluation for gastrointestinal condition.
[2019-10-19 12:48] VITALS: BMI 25.5
[2019-10-19] MEDS: BUTALB/APAP/CAFF 50-325-40MG TAB PO PRN ×3 (13:01→22:23)
[2019-10-19 18:00] LABS: Folate, Serum >24.0 ng/mL
[2019-10-19 22:21] VITALS: RESP 18
[2019-10-20] MEDS: oxyCODONE-APAP 5-325MG 1 EACH TAB PO PRN ×4 (01:05→13:43)
[2019-10-20] MEDS: DEXTROSE 5%-0.45% NACL 1,000 ML IV SCH ×2 (01:10→12:40)
[2019-10-20 07:26] LABS: African American GFR (CKD) >90 (>60 ml/min/1.73 sqM); Anion Gap 6 mmol/L; Blood Urea Nitrogen 13 mg/dL (7-17); Calcium 8.8 mg/dL (8.4-10.2); Carbon Dioxide 24 mmol/L (22-30); Chloride 107 mmol/L (98-107); Glucose 98 mg/dL (74-99); Non-African American GFR(CKD) >90 (>60 ml/min/1.73 sqM); Sodium 137 mmol/L (137-145)
[2019-10-20 07:29] LABS: Potassium 3.9 mmol/L (3.5-5.1)
[2019-10-20] MEDS ORDERED: amLODIPine 5 MG TAB PO SCH (09:00)
[2019-10-20] MEDS ORDERED: PANTOPRAZOLE 40 MG TABLET PO SCH (09:00)
[2019-10-20] MEDS: LOSARTAN 50 MG TAB PO SCH (09:29)
[2019-10-20 10:35] VITALS: BP 171/84; PULSE 82; TEMP 98.4
[2019-10-20] MEDS ORDERED: levETIRAcetam 500 MG TAB PO SCH (11:45)
--- NOTE | 2019-10-20 22:19 | P.DS ---
Providers Date of admission: 10/18/19 15:03 Attending physician: Lalit Shaw MD Consults: 10/18/19 15:17 Consult Physician Urgent Consulting Provider: Zoran Mercado Consult Reason/Comments: draper , n/v, multiple cva on ct head (old) Do you want consulting provider notified?: Yes Primary care physician: Stated None Hospital Course: Diagnoses: uncontrolled hypertension. Hypertensive urgency, with headache Nausea vomiting. U Acute urinary tract infection. rine culture is negative. Patient with no urinary symptoms. Most likely patient has asymptomatic bacteriuria and no need for antibiotic fall Multiple cerebral infarcts and cerebellar infarcts on the CAT scan of the head. Hyperlipidemia Fibromyalgia Asthma, not in acute process Memory impairment Osteoarthritis Seizure disorder Chronic back pain status post lumbar spine surgery 2, multiple pain medications Hospital course: This is a pleasant 64 years old female with past medical history of hypertension, hyperlipidemia, fibromyalgia, asthma, memory impairment, osteoarthritis, seizure disorder, chronic back pain she is status post lumbar spine surgery 2, she was on high-dose oral pain medication including morphine and Percocet This is the fourth of the patient returned to the hospital for similar complaints, this is the first time for nausea vomiting and headache. Patient says that she has headache for 1-1 and half week duration, usually it is on the frontal area more to the right side, however this time it is on the back of the head, severe, nonspecific, nonradiating, not associated with limb weakness or numbness or blurred vision. No slurred speech. It is associated with recurrent nausea vomiting for about more than a week to week and a half. for example Since last night she vomited about 6-8 times, with no blood. She is not able to keep food or drinks down. She took her blood pressure medication of losartan and clonidine however she throwing them up. Also patient says that she fell about one and a half week ago and she hit her head on the frontal area. Of note patient has a significant unsteady gait for 2 months, last month she was in the hospital when her legs gave away, she went to rehab when she regained her ability to walk but she still feeling bilateral numbness in her feet Is also complaining of from polyuria. No dysuria Used to follow-up with Dr. Kim But he stopped seeing her and stopped given her Suboxone since last month, she still has some pills left at home and last time she used Suboxone was more than one week ago as she told me Patient was admitted to the hospital and she was treated symptomatically with antiemetics, IV hydration, pain medicine and antihypertensive. Her symptoms are significantly improved, closed and headache. No more nausea vomiting patient tolerating that well. Physical therapy recommended home versus home health care. Neurologist evaluation is obtained and recommended no further workup. Hemoglobin A1c is 6%, B12 is not deficient at 1053. On the day of discharge patient denies other symptoms. Patient was cleared by neurologist for discharge Problems and management plan were discussed with the patient and he verbalized understanding and acceptance Patient was found stable and can be discharged home however he needs follow-up as an outpatient. Patient was instructed to follow up with PCP within one week and patient agrees. Patient was instructed to call her medical insurance to find a new PCP and follow-up in one week otherwise contact information for the patient the possible splenic is provided for the patient to also patient was instructed she might benefit from GI consult as an outpatient as pt wanted to see GI as outpt, pt agrees with appointment made for her on 11/16 and states she will follow up . She verbalized understanding and agreement pt states she will call office for appointment as she has medicare, also i discussed with manager route who will provide resources for the pt to find help for the pt to fill her Medicaid forms pt is advised to keep away from opioids medication and SE are explained for her and she seem to understand but her compliance with recommendation is questionable. scripts are provided for pt and reviewed with her in details. Gen: patient is a AAOx3, no distress CVS: S1-S2, RRR, no murmur Lungs: B/L CTA, no wheezing Abdomen: soft, no distention, no tenderness, positive bowel sounds Extremity: no leg edema or induration Time spent more than 35 minutes Patient Condition at Discharge: Stable Plan - Discharge Summary Discharge Rx Participant: Yes New Discharge Prescriptions: New Butalb/APAP/Caff 50-325-40Mg [Fioricet 50-325-40] 1 each PO Q12HR PRN 2 Days #4 tab PRN Reason: Headache Ibuprofen [Motrin] 400 mg PO Q6HR PRN 5 Days #20 tab PRN Reason: Mild Pain Or Fever > 100.5 amLODIPine [Norvasc] 5 mg PO DAILY #30 tab Acetaminophen Tab [Tylenol] 325 mg PO Q6HR PRN #30 tab PRN Reason: Mild Pain Or Fever > 100.5 diphenhydrAMINE [Benadryl] 25 mg PO BID PRN 7 Days #14 capsule PRN Reason: Nausea And Vomiting Continue Ergocalciferol [Vitamin D2 (DRISDOL)] 50,000 unit PO Q7D Rosuvastatin [Crestor] 10 mg PO HS #30 tab DULoxetine HCL [Cymbalta] 60 mg PO DAILY #30 cap levETIRAcetam [Keppra] 500 mg PO BID #60 tab Losartan Potassium 50 mg PO DAILY #30 Omeprazole 40 mg PO DAILY #30 cap Ondansetron Odt [Zofran ODT] 4 mg PO Q8HR PRN #90 tab PRN Reason: Nausea Discontinued hydrOXYzine HCL 25 mg PO HS PRN PRN Reason: Itching Methocarbamol [Robaxin] 500 mg PO BID PRN PRN Reason: Pain Buprenorphine HCl/Naloxone HCl [Suboxone 8 mg-2 mg Sl Film] 1 film SL BID cloNIDine HCL [Catapres] 0.1 mg PO DAILY Metoclopramide [Reglan] 10 mg PO ACHS #12 tab Cephalexin [Keflex] 500 mg PO Q6H #28 cap HYDROcodone/APAP 5-325MG [[place] 5-325] 1 tab PO Q6HR PRN 3 Days #12 tab PRN Reason: Pain Discharge Medication List Ergocalciferol [Vitamin D2 (DRISDOL)] 50,000 unit PO Q7D 03/01/18 [History] Acetaminophen Tab [Tylenol] 325 mg PO Q6HR PRN #30 tab 10/20/19 [Rx] Butalb/APAP/Caff 50-325-40Mg [Fioricet 50-325-40] 1 each PO Q12HR PRN 2 Days #4 tab 10/20/19 [Rx] DULoxetine HCL [Cymbalta] 60 mg PO DAILY #30 cap 10/20/19 [Rx] Ibuprofen [Motrin] 400 mg PO Q6HR PRN 5 Days #20 tab 10/20/19 [Rx] Losartan Potassium 50 mg PO DAILY #30 10/20/19 [Rx] Omeprazole 40 mg PO DAILY #30 cap 10/20/19 [Rx] Ondansetron Odt [Zofran ODT] 4 mg PO Q8HR PRN #90 tab 10/20/19 [Rx] Rosuvastatin [Crestor] 10 mg PO HS #30 tab 10/20/19 [Rx] amLODIPine [Norvasc] 5 mg PO DAILY #30 tab 10/20/19 [Rx] diphenhydrAMINE [Benadryl] 25 mg PO BID PRN 7 Days #14 capsule 10/20/19 [Rx] levETIRAcetam [Keppra] 500 mg PO BID #60 tab 10/20/19 [Rx] Follow up Appointment(s)/Referral(s): Araseli Beltre MD [STAFF PHYSICIAN] - 11/16/19 11:30 am ([employer]st for nausea/vomiting. With [facility]. Please arrive at 11:15 AM with a photo ID, your insurance card and a list of your current medications. ) Shelby Reyes MD [STAFF PHYSICIAN] - 1-2 Days (Please follow up with physician until you hear back from visiting physicians. In the mean time get your medicaid paperwork finished and mailed.) Keisha Bernard MD [Medical Doctor] - 1 Week [facility] [NON-STAFF] - 1 Week (Once you re-establish your medicaid, please call for a follow up appointment. ) Patient Instructions/Handouts: Ischemic Stroke (DC) Activity/Diet/Wound Care/Special Instructions: Transportation/Community Resources [place] [facility] - Dial a Ride - [phone] [place] [facility] - [phone] [facility] - [phone] - referral has been started, they should follow up with you within about one week Discharge Disposition: HOME SELF-CARE
== END 2019-10-20 14:18 | disposition home or self-care (01) | DRG 304 ==
LOC: EC 11:07 → 3SCARD 15:03
PROVIDERS: ADMIT Internal Medicine; ATTEND Internal Medicine
DX: I16.0 Hypertensive urgency (principal); I63.9 Cerebral infarction, unspecified; I10 Essential (primary) hypertension; E78.5 Hyperlipidemia, unspecified; F17.200 Nicotine dependence, unspecified, uncomplicated; G40.909 Epilepsy, unspecified, not intractable, without status epilepticus; G89.29 Other chronic pain; J45.909 Unspecified asthma, uncomplicated; M19.90 Unspecified osteoarthritis, unspecified site; M79.7 Fibromyalgia; R26.81 Unsteadiness on feet; M54.9 Dorsalgia, unspecified; R41.3 Other amnesia; R51 Headache; M43.16 Spondylolisthesis, lumbar region; Z79.899 Other long term (current) drug therapy; Z88.6 Allergy status to analgesic agent; Z88.1 Allergy status to other antibiotic agents; Z98.42 Cataract extraction status, left eye; Z98.41 Cataract extraction status, right eye; Z96.1 Presence of intraocular lens; Z96.652 Presence of left artificial knee joint; Z82.0 Family history of epilepsy and other diseases of the nervous system; Z82.49 Family history of ischemic heart disease and other diseases of the circulatory system; Z81.1 Family history of alcohol abuse and dependence; Z80.0 Family history of malignant neoplasm of digestive organs
CPT/HCPCS: 36415; 70450; 71046; 74018; 80048; 80053; 80061; 80306; 81001; 82150; 82607; 82746; 83036; 83605; 83690; 85025; 85610; 85730; 87040; 87086; 93005; 96361; 96374; 96375; 96376; 99285

== ENCOUNTER 2019-10-21 07:25 | Emergency (ER) | payer MEDICARE ==
[2019-10-21 07:31] VITALS: RESP 18
--- NOTE | 2019-10-21 07:55 | ED ---
Nausea/Vomiting/Diarrhea HPI - General Chief complaint: Nausea/Vomiting/Diarrhea Stated complaint: nausea, vomiting Time Seen by Provider: 10/21/19 07:35 Source: EMS Mode of arrival: EMS Limitations: no limitations - History of Present Illness Initial comments: 64-year-old female presenting for nausea and vomiting. Patient states that since she has stopped taking her Suboxone she has had nausea and vomiting. She states she is presents emergency department for this complaint the past who believes she is withdrawing from opioids. She was dropped from primary care provider who was prescribing this medication. Patient states they're giving her pain medications in the hospital during her stay however once she was discharged the nausea and vomiting returned. 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 Patient denies slurred speech, vision loss, neck pain, fevers, weakness of the UE and LE b/l, or changes in gait. Patient states she also cant sleep at night. Patient states she doesnt know what to do, and presented to the ER for reevaluatino. Patient denies any chest pain shortness of breath and leg swelling decreasing urine production back pain or any additional complaints. - Related Data Home Medications Medication Instructions Recorded Confirmed Ergocalciferol [Vitamin D2 50,000 unit PO Q7D 03/01/18 10/18/19 (DRISDOL)] Previous Rx's Medication Instructions Recorded Acetaminophen Tab [Tylenol] 325 mg PO Q6HR PRN #30 tab 10/20/19 Butalb/APAP/Caff 50-325-40Mg 1 each PO Q12HR PRN 2 Days #4 tab 10/20/19 [Fioricet 50-325-40] DULoxetine HCL [Cymbalta] 60 mg PO DAILY #30 cap 10/20/19 Ibuprofen [Motrin] 400 mg PO Q6HR PRN 5 Days #20 tab 10/20/19 Losartan Potassium 50 mg PO DAILY #30 10/20/19 Omeprazole 40 mg PO DAILY #30 cap 10/20/19 Ondansetron Odt [Zofran ODT] 4 mg PO Q8HR PRN #90 tab 10/20/19 Rosuvastatin [Crestor] 10 mg PO HS #30 tab 10/20/19 amLODIPine [Norvasc] 5 mg PO DAILY #30 tab 10/20/19 diphenhydrAMINE [Benadryl] 25 mg PO BID PRN 7 Days #14 capsule 10/20/19 levETIRAcetam [Keppra] 500 mg PO BID #60 tab 10/20/19 Allergies Allergy/AdvReac Type Severity Reaction Status Date / Time nitrofurantoin AdvReac Abdominal Verified 10/18/19 11:37 [From Macrobid] Pain/Nausea/Vomiting NSAIDS (Non-Steroidal AdvReac Nausea & Verified 10/18/19 11:37 Anti-Inflamma Vomiting Review of Systems ROS Statement: Those systems with pertinent positive or pertinent negative responses have been documented in the HPI. ROS Other: All systems not noted in ROS Statement are negative. Past Medical History Past Medical History: Asthma, Fibromyalgia, Hyperlipidemia, Hypertension, Memory Impairment, Musculoskeletal Disorder, Osteoarthritis (OA), Seizure Disorder Additional Past Medical History / Comment(s): BACK PAIN, SHORT TERM MEMORY LOSS, history of lumbar spine surgery 2 at outside institutions. History of multiple treatments and procedures with interventional pain management chronically. She is on chronic high-dose oral pain medications including morphine and Percocet. with pain management. History of Any Multi-Drug Resistant Organisms: None Reported Past Surgical History: Adenoidectomy, Back Surgery, Breast Surgery, Joint Replacement, Orthopedic Surgery, Tonsillectomy Additional Past Surgical History / Comment(s): , LT HAND SURGERY, RT GANGLION CYST REMOVED, LEEP, COLONOSCOPY, EGD, MIGUEL A. CATARACT WITH LENS IMLANTS,RT BREAST BIOPSY, 2 BACK SURGERIES- ONE WAS A LAMINECTOMY, TOTAL LEFT KNEE Past Anesthesia/Blood Transfusion Reactions: No Reported Reaction Past Psychological History: No Psychological Hx Reported Smoking Status: Current every day smoker Past Alcohol Use History: None Reported Past Drug Use History: None Reported - Past Family History Brother(s) Family Medical History: Cancer Additional Family Medical History / Comment(s): PANCREATITIS Mother Family Medical History: Hypertension, Memory Impairment Additional Family Medical History / Comment(s): ALZHEIMER'S Father Family Medical History: Coronary Artery Disease (CAD) Additional Family Medical History / Comment(s): HEART PROBLEMS-HAD QUAD- CABG, ALCOHOLISM General Exam - General Exam Comments Initial Comments: General: The patient is awake and alert, in no distress Eye: +3 mm pupils are equal, round and reactive to light, extra-ocular movements are intact. No nystagmus. There is normal conjunctiva bilaterally. No signs of icterus. Ears, nose, mouth and throat: There are moist mucous membranes and no oral lesions. Neck: The neck is supple, there is no tenderness or JVD. Cardiovascular: There is a regular rate and rhythm. No murmur, rub or gallop is appreciated. Respiratory: Lungs are clear to auscultation, respirations are non-labored, breath sounds are equal. No wheezes, stridor, rales, or rhonchi. Gastrointestinal: Soft, non-distended, non-tender abdomen without masses or organomegaly noted. There is no rebound or guarding present. Musculoskeletal: Normal ROM, no tenderness. Strength 5/5 of the UE and LE b/l. Sensation intact. Radial pulses equal bilaterally 2+. Neurological: A&O x 3. CN II-XII intact, There are no obvious motor or sensory deficits. Coordination appears grossly intact. Speech is normal. No pronator drift. Skin: Skin is warm and dry and no rashes or lesions are noted. Psychiatric: Cooperative, appropriate mood & affect, normal judgment. Limitations: no limitations Course Vital Signs 10/21/19 10/21/19 10/21/19 07:27 09:31 09:48 Temperature 98.0 F 97.9 F Pulse Rate 73 94 99 Respiratory 18 18 18 Rate Blood Pressure 141/103 177/92 189/95 O2 Sat by Pulse 98 96 98 Oximetry 10/21/19 10:13 Temperature Pulse Rate 98 Respiratory 18 Rate Blood Pressure 178/90 O2 Sat by Pulse 98 Oximetry Medical Decision Making - Medical Decision Making 64-year-old febrile presents emergency department today for chief complaint of nausea vomiting she states that all of her symptoms began after she was taken off Suboxone cold turkey she states that she had no detox she states she was on this for chronic pain. Patient states she did not have an addiction to IV drugs or perception opiates. Patient states she is then discharged from her primary care office. Patient states she was recently discharged from this facility for similar symptoms she states they've not gotten better she states the only get better when she is given pain medications. Upon arrival patient complained of headache nausea vomiting. Patient had no focal neurological deficits the physical examination or abdominal pain. Patient given IV blood pressure medication and encouraged to follow up with [facility] resources for opiate addiction and centers that will help with detoxification. Patient had no episodes of vomiting in the emergency department. Patient symptoms controlled with Zofran to 1 dose of morphine. Patient states that she is ready for discharge. Patient discharged appearing well--after discussing the case at length and in detail [facility] attending who is agreeable with discharge at this time. - Lab Data Result diagrams: 10/21/19 08:40 10/21/19 08:40 Lab Results 10/21/19 10/21/19 Range/Units 08:40 08:40 WBC 7.8 (3.8-10.6) k/uL RBC 5.90 H (3.80-5.40) m/uL Hgb 17.0 H (11.4-16.0) gm/dL Hct 51.7 H (34.0-46.0) % MCV 87.6 (80.0-100.0) fL MCH 28.8 (25.0-35.0) pg MCHC 32.9 (31.0-37.0) g/dL RDW 13.9 (11.5-15.5) % Plt Count 294 (150-450) k/uL Neutrophils % 80 % Lymphocytes % 15 % Monocytes % 3 % Eosinophils % 1 % Basophils % 1 % Neutrophils # 6.2 (1.3-7.7) k/uL Lymphocytes # 1.2 (1.0-4.8) k/uL Monocytes # 0.3 (0-1.0) k/uL Eosinophils # 0.0 (0-0.7) k/uL Basophils # 0.1 (0-0.2) k/uL Sodium 139 (137-145) mmol/L Potassium 4.8 (3.5-5.1) mmol/L Chloride 103 (98-107) mmol/L Carbon Dioxide 24 (22-30) mmol/L Anion Gap 12 mmol/L BUN 7 (7-17) mg/dL Creatinine 0.44 L (0.52-1.04) mg/dL Est GFR (CKD-EPI)AfAm >90 (>60 ml/min/1.73 sqM) Est GFR (CKD-EPI)NonAf >90 (>60 ml/min/1.73 sqM) Glucose 150 H (74-99) mg/dL Calcium 10.0 (8.4-10.2) mg/dL Total Bilirubin 0.9 (0.2-1.3) mg/dL AST 32 (14-36) U/L ALT 15 (4-34) U/L Alkaline Phosphatase 88 (38-126) U/L Total Protein 7.8 (6.3-8.2) g/dL Albumin 4.9 (3.5-5.0) g/dL Disposition Clinical Impression: Opioid withdrawal, Headache, Nausea & vomiting Disposition: HOME SELF-CARE Condition: Good Additional Instructions: Please use medication as discussed. Please follow-up with family doctor in the next 2 days. Please return to emergency room if the symptoms increase or worsen or for any other concerns. Is patient prescribed a controlled substance at d/c from ED?: No Referrals: None,Stated [Primary Care Provider] - 1-2 days [facility] Randal yang [NON-STAFF] - 1-2 days Time of Disposition: 10:09
[2019-10-21] MEDS ORDERED: SODIUM CHLORIDE 0.9% 500 ML 500 ML IV ONE (08:08)
[2019-10-21] MEDS ORDERED: SODIUM CHLORIDE 0.9% 1,000 ML IV ONE (08:08)
[2019-10-21] MEDS ORDERED: hydrALAZINE HCL 20 MG/ML 1 ML VIAL IVP STA (08:08)
[2019-10-21] MEDS ORDERED: ONDANSETRON 4 MG/2 ML VIAL IVP STA (08:09)
[2019-10-21] MEDS ORDERED: SODIUM CHLORIDE 0.9% 1,000 ML IV SCH (08:15)
[2019-10-21] MEDS ORDERED: LORazepam 2 MG/ML INJ IV STA (08:32)
[2019-10-21 08:55] LABS: Basophils # (A) 0.1 k/uL (0-0.2); Basophils % (A) 1 %; Eosinophils % (A) 1 %; HCT 51.7 % (34.0-46.0); Lymphocytes # (A) 1.2 k/uL (1.0-4.8); Lymphocytes % (A) 15 %; MCH 28.8 pg (25.0-35.0); MCHC 32.9 g/dL (31.0-37.0); MCV 87.6 fL (80.0-100.0); Mean Platelet Volume 7.4; Monocytes # (A) 0.3 k/uL (0-1.0); Monocytes % (A) 3 %; Neutrophils # (A) 6.2 k/uL (1.3-7.7); Neutrophils % (A) 80 %; Platelet Count 294 k/uL (150-450); RDW 13.9 % (11.5-15.5); WBC 7.8 k/uL (3.8-10.6)
[2019-10-21 09:12] LABS: ALT 15 U/L (4-34); African American GFR (CKD) >90 (>60 ml/min/1.73 sqM); Anion Gap 12 mmol/L; Blood Urea Nitrogen 7 mg/dL (7-17); Carbon Dioxide 24 mmol/L (22-30); Chloride 103 mmol/L (98-107); Glucose 150 mg/dL (74-99); Non-African American GFR(CKD) >90 (>60 ml/min/1.73 sqM); Sodium 139 mmol/L (137-145); Total Bilirubin 0.9 mg/dL (0.2-1.3)
[2019-10-21 09:18] LABS: AST 32 U/L (14-36); Potassium 4.8 mmol/L (3.5-5.1)
[2019-10-21 09:19] LABS: Albumin 4.9 g/dL (3.5-5.0); Alkaline Phosphatase 88 U/L (38-126); Total Protein 7.8 g/dL (6.3-8.2)
[2019-10-21] MEDS ORDERED: MORPHINE SULFATE 4 MG/ML SYRINGE IVP STA (09:39)
[2019-10-21 09:52] VITALS: TEMP 97.9
[2019-10-21 10:22] VITALS: BP 178/90; PULSE 98
== END 2019-10-21 10:13 | disposition home or self-care (01) ==
LOC: EC 07:25
DX: F11.23 Opioid dependence with withdrawal (principal); R51 Headache; F17.200 Nicotine dependence, unspecified, uncomplicated; Z88.1 Allergy status to other antibiotic agents; Z88.6 Allergy status to analgesic agent
CPT/HCPCS: 36415; 80053; 85025; 99284; 96374; 96375 ×3; 96361 ×2; J2060; J2270; J0360; J2405

== ENCOUNTER 2019-10-24 09:48 | Emergency (ER) | payer MEDICARE ==
[2019-10-24 09:56] VITALS: RESP 16; TEMP 97.9
[2019-10-24] MEDS ORDERED: cloNIDine HCL 0.2 MG TAB PO STA (10:11)
[2019-10-24] MEDS ORDERED: SODIUM CHLORIDE 0.9% 1,000 ML IV STA (10:11)
[2019-10-24] MEDS ORDERED: diphenhydrAMINE 50 MG/ML 1 ML VIAL IVP STA (10:11)
[2019-10-24] MEDS ORDERED: METOCLOPRAMIDE 5 MG/ML 2 ML VIAL IVP STA (10:11)
--- NOTE | 2019-10-24 10:23 | ED ---
General Adult HPI - General Chief complaint: Nausea/Vomiting/Diarrhea Stated complaint: Neck pain/vomiting/nausea Time Seen by Provider: 10/24/19 09:58 Source: EMS Mode of arrival: EMS Limitations: no limitations - History of Present Illness Initial comments: 64-year-old female patient presents to the emergency department today for evaluation of vomiting, abdominal pain, and increased her chronic pain. Patient states that symptoms started this morning upon wakening. States she's been unable to keep down any food or fluids. States that she vomited up her blood pressure medication. States that she's been having difficulty with nausea and vomiting for the last 2-3 weeks. States that she was discharged from her family practice where she received prescriptions for suboxone and previously morphine and percocet. Patient states that symptoms started shortly after stopping taking his medications. Patient reports nonbilious, nonbloody emesis. She denies any constipation or diarrhea. She is reporting generalized abdominal pain and cramping. Denies any chest pain or shortness of breath. She is reporting neck pain and lumbosacral pain which radiates down her right leg. States that the neck and back pain are chronic since experiencing a fall. She denies any loss of bowel or bladder control. Denies saddle anesthesia or new numbness or tingling to her lower extremities. She denies fever or chills. Patient denies any recent rash, shortness breath, chest pain, dizziness, weakness, hematuria, dysuria, urinary urgency, urinary frequency, visual changes, or any other complaints. - Related Data Home Medications Medication Instructions Recorded Confirmed Ergocalciferol [Vitamin D2 50,000 unit PO Q7D 03/01/18 10/18/19 (DRISDOL)] Previous Rx's Medication Instructions Recorded Acetaminophen Tab [Tylenol] 325 mg PO Q6HR PRN #30 tab 10/20/19 Butalb/APAP/Caff 50-325-40Mg 1 each PO Q12HR PRN 2 Days #4 tab 10/20/19 [Fioricet 50-325-40] DULoxetine HCL [Cymbalta] 60 mg PO DAILY #30 cap 10/20/19 Ibuprofen [Motrin] 400 mg PO Q6HR PRN 5 Days #20 tab 10/20/19 Losartan Potassium 50 mg PO DAILY #30 10/20/19 Omeprazole 40 mg PO DAILY #30 cap 10/20/19 Ondansetron Odt [Zofran ODT] 4 mg PO Q8HR PRN #90 tab 10/20/19 Rosuvastatin [Crestor] 10 mg PO HS #30 tab 10/20/19 amLODIPine [Norvasc] 5 mg PO DAILY #30 tab 10/20/19 diphenhydrAMINE [Benadryl] 25 mg PO BID PRN 7 Days #14 capsule 10/20/19 levETIRAcetam [Keppra] 500 mg PO BID #60 tab 10/20/19 Allergies Allergy/AdvReac Type Severity Reaction Status Date / Time nitrofurantoin AdvReac Abdominal Verified 10/18/19 11:37 [From Macrobid] Pain/Nausea/Vomiting NSAIDS (Non-Steroidal AdvReac Nausea & Verified 10/18/19 11:37 Anti-Inflamma Vomiting Review of Systems ROS Statement: Those systems with pertinent positive or pertinent negative responses have been documented in the HPI. ROS Other: All systems not noted in ROS Statement are negative. Past Medical History Past Medical History: Asthma, Fibromyalgia, Hyperlipidemia, Hypertension, Memory Impairment, Musculoskeletal Disorder, Osteoarthritis (OA), Seizure Disorder Additional Past Medical History / Comment(s): BACK PAIN, SHORT TERM MEMORY LOSS, history of lumbar spine surgery 2 at outside institutions. History of multiple treatments and procedures with interventional pain management chronically. She is on chronic high-dose oral pain medications including morphine and Percocet. with pain management. History of Any Multi-Drug Resistant Organisms: None Reported Past Surgical History: Adenoidectomy, Back Surgery, Breast Surgery, Joint Replacement, Orthopedic Surgery, Tonsillectomy Additional Past Surgical History / Comment(s): , LT HAND SURGERY, RT GANGLION CYST REMOVED, LEEP, COLONOSCOPY, EGD, MIGUEL A. CATARACT WITH LENS IMLANTS,RT BREAST BIOPSY, 2 BACK SURGERIES- ONE WAS A LAMINECTOMY, TOTAL LEFT KNEE Past Anesthesia/Blood Transfusion Reactions: No Reported Reaction Past Psychological History: No Psychological Hx Reported Smoking Status: Current every day smoker Past Alcohol Use History: None Reported Past Drug Use History: None Reported - Past Family History Brother(s) Family Medical History: Cancer Additional Family Medical History / Comment(s): PANCREATITIS Mother Family Medical History: Hypertension, Memory Impairment Additional Family Medical History / Comment(s): ALZHEIMER'S Father Family Medical History: Coronary Artery Disease (CAD) Additional Family Medical History / Comment(s): HEART PROBLEMS-HAD QUAD- CABG, ALCOHOLISM General Exam Limitations: no limitations General appearance: alert, in no apparent distress, other (Physical well- developed, well-nourished adult female patient in no acute distress. Vital signs upon presentation are temperature 97.9F, pulse 76, respirations 16, blood pressure 224/99, pulse ox 97% on room air.) Eye exam: Present: normal appearance, PERRL, EOMI. Absent: scleral icterus, conjunctival injection, nystagmus, periorbital swelling ENT exam: Present: normal exam, normal oropharynx, mucous membranes moist Respiratory exam: Present: normal lung sounds bilaterally. Absent: respiratory distress, wheezes, rales, rhonchi, stridor Cardiovascular Exam: Present: regular rate, normal rhythm, normal heart sounds. Absent: systolic murmur, diastolic murmur, rubs, gallop, clicks GI/Abdominal exam: Present: soft, tenderness (Generalized), normal bowel sounds. Absent: distended, guarding, rebound, rigid Back exam: Present: normal inspection Neurological exam: Present: alert, oriented X3, CN II-XII intact, other (Strength in the lower extremities is 5/5.) Psychiatric exam: Present: normal affect, normal mood Skin exam: Present: warm, dry, intact, normal color. Absent: rash Course Vital Signs 10/24/19 10/24/19 09:53 11:00 Temperature 97.9 F Pulse Rate 76 76 Respiratory 16 16 Rate Blood Pressure 224/99 202/96 O2 Sat by Pulse 97 99 Oximetry Medical Decision Making - Medical Decision Making 64-year-old female patient presents to the emergency room today referred evaluation of nausea and vomiting. She is also reporting chronic pain. She has been out of her Suboxone and pain medications for the last 2-3 weeks. Patient has been seen several times in the emergency department for several symptoms. She has been given doses of opiates intermittently at this visit. Physical examination reveals a soft nontender abdomen. Labs reviewed and are unremarkable. She did have mildly low potassium which has been replaced. She admitted to vomiting up her blood pressure medication today. She did receive doses of both clonidine and Norvasc here. She'll be discharged home to follow- up with a primary care physician as soon as possible. Return parameters were discussed in detail. She verbalizes understanding and agrees with this plan. - Lab Data Result diagrams: 10/24/19 09:55 10/24/19 09:55 Lab Results 10/24/19 10/24/19 10/24/19 Range/Units 09:55 09:55 09:55 WBC 8.9 (3.8-10.6) k/uL RBC 5.35 (3.80-5.40) m/uL Hgb 15.4 (11.4-16.0) gm/dL Hct 46.6 H (34.0-46.0) % MCV 87.1 (80.0-100.0) fL MCH 28.7 (25.0-35.0) pg MCHC 33.0 (31.0-37.0) g/dL RDW 14.0 (11.5-15.5) % Plt Count 279 (150-450) k/uL Neutrophils % 77 % Lymphocytes % 16 % Monocytes % 5 % Eosinophils % 1 % Basophils % 1 % Neutrophils # 6.9 (1.3-7.7) k/uL Lymphocytes # 1.4 (1.0-4.8) k/uL Monocytes # 0.4 (0-1.0) k/uL Eosinophils # 0.1 (0-0.7) k/uL Basophils # 0.1 (0-0.2) k/uL Sodium 140 (137-145) mmol/L Potassium 3.4 L (3.5-5.1) mmol/L Chloride 102 (98-107) mmol/L Carbon Dioxide 26 (22-30) mmol/L Anion Gap 12 mmol/L BUN 15 (7-17) mg/dL Creatinine 0.56 (0.52-1.04) mg/dL Est GFR (CKD-EPI)AfAm >90 (>60 ml/min/1.73 sqM) Est GFR (CKD-EPI)NonAf >90 (>60 ml/min/1.73 sqM) Glucose 142 H (74-99) mg/dL Calcium 9.9 (8.4-10.2) mg/dL Total Bilirubin 0.6 (0.2-1.3) mg/dL AST 25 (14-36) U/L ALT 17 (4-34) U/L Alkaline Phosphatase 98 (38-126) U/L Total Protein 7.4 (6.3-8.2) g/dL Albumin 4.7 (3.5-5.0) g/dL Lipase 77 (23-300) U/L Urine Color Light Yellow Urine Appearance Clear (Clear) Urine pH 7.0 (5.0-8.0) Ur Specific [place] 1.011 (1.001-1.035) Urine Protein Negative (Negative) Urine Glucose (UA) Trace H (Negative) Urine Ketones Trace H (Negative) Urine Blood Negative (Negative) Urine Nitrite Negative (Negative) Urine Bilirubin Negative (Negative) Urine Urobilinogen <2.0 (<2.0) mg/dL Ur Leukocyte Esterase Negative (Negative) Disposition Clinical Impression: Chronic pain, Opioid withdrawal, Vomiting Disposition: HOME SELF-CARE Condition: Good Instructions (If sedation given, give patient instructions): Chronic Pain (ED), Acute Nausea and Vomiting (ED), Opioid Withdrawal (ED) Additional Instructions: Follow-up with primary care physician, options have been listed below, make phone calls to establish an initial appointment. Take Tylenol Motrin for pain control. Return to the emergency department immediately for any new, worsening, or concerning symptoms. Is patient prescribed a controlled substance at d/c from ED?: No Referrals: Herbert Peres MD [STAFF PHYSICIAN] - 1-2 days Time of Disposition: 12:19
[2019-10-24 10:43] LABS: Appearance,Urine Clear (Clear); Bilirubin,Urine Negative (Negative); Blood,Urine Negative (Negative); Color,Urine Light Yellow; Glucose,Urine (UA) Trace (Negative); Ketones,Urine Trace (Negative); Leukocyte Esterase,Urine Negative (Negative); Nitrite,Urine Negative (Negative); Protein,Urine Negative (Negative); Specific Gravity,Urine 1.011 (1.001-1.035); Urobilinogen,Urine <2.0 mg/dL (<2.0)
[2019-10-24 10:44] LABS: Basophils # (A) 0.1 k/uL (0-0.2); Basophils % (A) 1 %; Eosinophils # (A) 0.1 k/uL (0-0.7); Eosinophils % (A) 1 %; HCT 46.6 % (34.0-46.0); HGB 15.4 gm/dL (11.4-16.0); Lymphocytes # (A) 1.4 k/uL (1.0-4.8); Lymphocytes % (A) 16 %; MCH 28.7 pg (25.0-35.0); MCV 87.1 fL (80.0-100.0); Mean Platelet Volume 7.7; Monocytes # (A) 0.4 k/uL (0-1.0); Monocytes % (A) 5 %; Neutrophils # (A) 6.9 k/uL (1.3-7.7); Neutrophils % (A) 77 %; Platelet Count 279 k/uL (150-450); RBC 5.35 m/uL (3.80-5.40); WBC 8.9 k/uL (3.8-10.6)
[2019-10-24 10:54] LABS: ALT 17 U/L (4-34); AST 25 U/L (14-36); African American GFR (CKD) >90 (>60 ml/min/1.73 sqM); Albumin 4.7 g/dL (3.5-5.0); Alkaline Phosphatase 98 U/L (38-126); Anion Gap 12 mmol/L; Blood Urea Nitrogen 15 mg/dL (7-17); Calcium 9.9 mg/dL (8.4-10.2); Carbon Dioxide 26 mmol/L (22-30); Chloride 102 mmol/L (98-107); Glucose 142 mg/dL (74-99); Non-African American GFR(CKD) >90 (>60 ml/min/1.73 sqM); Potassium 3.4 mmol/L (3.5-5.1); Sodium 140 mmol/L (137-145); Total Bilirubin 0.6 mg/dL (0.2-1.3); Total Protein 7.4 g/dL (6.3-8.2)
--- NOTE | 2019-10-24 11:00 | XR ---
EXAMINATION TYPE: XR KUB DATE OF EXAM: 10/24/2019 COMPARISON: 10/18/2019 HISTORY: Abdominal pain and nausea TECHNIQUE: One view abdominal series FINDINGS: The osseous structures are intact. The bowel gas pattern is nonspecific. Lung bases are clear. Diffu se osteopenia with hypertrophic and degenerative change and postsurgical change of the spine. Arthrop athy of the left hip and postsurgical change right hip. IMPRESSION: 1. Nonspecific abdomen.
[2019-10-24] MEDS ORDERED: KETOROLAC 30 MG/ML 1 ML VIAL IVP STA (11:29)
[2019-10-24] MEDS ORDERED: ACETAMINOPHEN TAB 325 MG TAB PO STA (11:29)
[2019-10-24] MEDS ORDERED: amLODIPine 5 MG TAB PO STA (12:18)
[2019-10-24] MEDS ORDERED: POTASSIUM CHLORIDE ER 20 MEQ TAB.ER PO STA (12:19)
[2019-10-24 12:36] VITALS: BP 198/89; PULSE 77
== END 2019-10-24 12:42 | disposition home or self-care (01) ==
LOC: EC 09:48
DX: F11.23 Opioid dependence with withdrawal (principal); G89.29 Other chronic pain; I10 Essential (primary) hypertension; F17.200 Nicotine dependence, unspecified, uncomplicated; Z88.1 Allergy status to other antibiotic agents; Z88.6 Allergy status to analgesic agent
CPT/HCPCS: 36415; 80053; 83690; 85025; 81003; 74018; 99284; 96374; 96375 ×2; 96361; J1200; J2765; J1885

== ENCOUNTER 2019-10-26 09:18 | Emergency (ER) | payer MEDICARE ==
[2019-10-26] MEDS ORDERED: ONDANSETRON 4 MG/2 ML VIAL IVP STA (09:52)
[2019-10-26] MEDS ORDERED: KETOROLAC 30 MG/ML 1 ML VIAL IVP STA (09:52)
[2019-10-26] MEDS ORDERED: SODIUM CHLORIDE 0.9% 1,000 ML IV STA (09:52)
[2019-10-26] MEDS ORDERED: PANTOPRAZOLE 40 MG/10 ML VIAL IVP STA (09:52)
[2019-10-26] MEDS ORDERED: SODIUM CHLORIDE 0.9% 1,000 ML IV ONE (09:53)
[2019-10-26] MEDS ORDERED: LABETALOL 5 MG/ML VIAL MDV IVP STA (09:54)
--- NOTE | 2019-10-26 09:55 | ED ---
Abdominal Pain HPI - General Chief Complaint: Abdominal Pain Stated Complaint: ABD PAIN Time Seen by Provider: 10/26/19 09:28 Source: patient, EMS, RN notes reviewed, old records reviewed Mode of arrival: EMS Limitations: no limitations - History of Present Illness Initial Comments: Patient is a 64-year-old female in presents to emergency room. She presents today for complaints of nausea vomiting abdominal pain, states she has been to ED 6 times for this in the past 2 weeks. Patient reports that she is emergency room in 2 days ago for similar complaints. She states that she is also not had a bowel movement in 2 weeks. Patient states that she has had no fevers or chills. She states that she's been having nausea vomiting. She was in the hosp ital was not followed up with any primary care doctors in the past 2 weeks. Patient states that she has had chills as well. - Related Data Home Medications Medication Instructions Recorded Confirmed Ergocalciferol [Vitamin D2 50,000 unit PO Q7D 03/01/18 10/26/19 (DRISDOL)] Butalb/APAP/Caff 50-325-40Mg 1 tab PO Q12HR PRN 10/26/19 10/26/19 [Fioricet 50-325-40] Previous Rx's Medication Instructions Recorded Acetaminophen Tab [Tylenol] 325 mg PO Q6HR PRN #30 tab 10/20/19 DULoxetine HCL [Cymbalta] 60 mg PO DAILY #30 cap 10/20/19 Ibuprofen [Motrin] 400 mg PO Q6HR PRN 5 Days #20 tab 10/20/19 Losartan Potassium 50 mg PO DAILY #30 10/20/19 Omeprazole 40 mg PO DAILY #30 cap 10/20/19 Ondansetron Odt [Zofran ODT] 4 mg PO Q8HR PRN #90 tab 10/20/19 Rosuvastatin [Crestor] 10 mg PO HS #30 tab 10/20/19 amLODIPine [Norvasc] 5 mg PO DAILY #30 tab 10/20/19 diphenhydrAMINE [Benadryl] 25 mg PO BID PRN 7 Days #14 capsule 10/20/19 levETIRAcetam [Keppra] 500 mg PO BID #60 tab 10/20/19 Allergies Allergy/AdvReac Type Severity Reaction Status Date / Time nitrofurantoin AdvReac Abdominal Verified 10/26/19 11:22 [From Macrobid] Pain/Nausea/Vomiting NSAIDS (Non-Steroidal AdvReac Nausea & Verified 10/26/19 11:22 Anti-Inflamma Vomiting Review of Systems ROS Statement: Those systems with pertinent positive or pertinent negative responses have been documented in the HPI. ROS Other: All systems not noted in ROS Statement are negative. Past Medical History Past Medical History: Asthma, Fibromyalgia, Hyperlipidemia, Hypertension, Memory Impairment, Musculoskeletal Disorder, Osteoarthritis (OA), Seizure Disorder Additional Past Medical History / Comment(s): BACK PAIN, SHORT TERM MEMORY LOSS, history of lumbar spine surgery 2 at outside institutions. History of multiple treatments and procedures with interventional pain management chronically. She is on chronic high-dose oral pain medications including morphine and Percocet. with pain management. History of Any Multi-Drug Resistant Organisms: None Reported Past Surgical History: Adenoidectomy, Back Surgery, Breast Surgery, Joint Replacement, Orthopedic Surgery, Tonsillectomy Additional Past Surgical History / Comment(s): , LT HAND SURGERY, RT GANGLION CYST REMOVED, LEEP, COLONOSCOPY, EGD, MIGUEL A. CATARACT WITH LENS IMLANTS,RT BREAST BIOPSY, 2 BACK SURGERIES- ONE WAS A LAMINECTOMY, TOTAL LEFT KNEE Past Anesthesia/Blood Transfusion Reactions: No Reported Reaction Past Psychological History: No Psychological Hx Reported Smoking Status: Current some day smoker Past Alcohol Use History: None Reported Past Drug Use History: None Reported - Past Family History Brother(s) Family Medical History: Cancer Additional Family Medical History / Comment(s): PANCREATITIS Mother Family Medical History: Hypertension, Memory Impairment Additional Family Medical History / Comment(s): ALZHEIMER'S Father Family Medical History: Coronary Artery Disease (CAD) Additional Family Medical History / Comment(s): HEART PROBLEMS-HAD QUAD- CABG, ALCOHOLISM General Exam - General Exam Comments Initial Comments: 64-year-old female. Alert and oriented 3. No significant distress. Limitations: no limitations General appearance: alert, in no apparent distress Head exam: Present: atraumatic, normocephalic, normal inspection Eye exam: Present: normal appearance, PERRL, EOMI. Absent: scleral icterus, conjunctival injection, periorbital swelling ENT exam: Present: normal exam, mucous membranes moist Neck exam: Present: normal inspection. Absent: tenderness, meningismus, lymphadenopathy Respiratory exam: Present: normal lung sounds bilaterally. Absent: respiratory distress, wheezes, rales, rhonchi, stridor Cardiovascular Exam: Present: regular rate, normal rhythm, normal heart sounds. Absent: systolic murmur, diastolic murmur, rubs, gallop, clicks GI/Abdominal exam: Present: soft, normal bowel sounds. Absent: distended, tenderness, guarding, rebound, rigid Extremities exam: Present: normal inspection Back exam: Present: normal inspection Neurological exam: Present: alert, oriented X3, CN II-XII intact Psychiatric exam: Present: normal affect, normal mood Skin exam: Present: warm, dry, intact, normal color. Absent: rash Course Vital Signs 10/26/19 10/26/19 10/26/19 09:22 10:22 11:55 Temperature 98.0 F Pulse Rate 76 76 Respiratory 16 16 16 Rate Blood Pressure 204/126 216/113 207/98 O2 Sat by Pulse 99 99 Oximetry Medical Decision Making - Medical Decision Making 8-year-old female presents today for nausea, abdominal pain. Initial relation is due to withdrawal. Patient is quite adamantly seeking pain medication reques ting IV narcotics multiple times. I discussed the no narcotics be given emergency department for complaints today and she also isn't doing constipation. Discussed that that would make her more constipated on the road. Patient was given Toradol Reglan. She's been started force herself to vomit by sticking her fingers on her throat. Discussed this with every tolerated. I discussed case with Dr. PALACIOS. Will discharge Patient with mag citrate for mild constipation but no further narcotics at this time. Patient is discharged to follow up with PCP and GI specialty. - Lab Data Result diagrams: 10/26/19 09:53 10/26/19 09:53 Lab Results 10/26/19 10/26/19 10/26/19 Range/Units 09:53 09:53 11:55 WBC 11.0 H (3.8-10.6) k/uL RBC 5.22 (3.80-5.40) m/uL Hgb 15.4 (11.4-16.0) gm/dL Hct 45.2 (34.0-46.0) % MCV 86.7 (80.0-100.0) fL MCH 29.6 (25.0-35.0) pg MCHC 34.2 (31.0-37.0) g/dL RDW 13.9 (11.5-15.5) % Plt Count 319 (150-450) k/uL Neutrophils % 76 % Lymphocytes % 17 % Monocytes % 4 % Eosinophils % 1 % Basophils % 1 % Neutrophils # 8.4 H (1.3-7.7) k/uL Lymphocytes # 1.8 (1.0-4.8) k/uL Monocytes # 0.5 (0-1.0) k/uL Eosinophils # 0.1 (0-0.7) k/uL Basophils # 0.1 (0-0.2) k/uL Sodium 140 (137-145) mmol/L Potassium 3.3 L (3.5-5.1) mmol/L Chloride 105 (98-107) mmol/L Carbon Dioxide 22 (22-30) mmol/L Anion Gap 13 mmol/L BUN 19 H (7-17) mg/dL Creatinine 0.53 (0.52-1.04) mg/dL Est GFR (CKD-EPI)AfAm >90 (>60 ml/min/1.73 sqM) Est GFR (CKD-EPI)NonAf >90 (>60 ml/min/1.73 sqM) Glucose 141 H (74-99) mg/dL Calcium 9.9 (8.4-10.2) mg/dL Total Bilirubin 0.6 (0.2-1.3) mg/dL AST 22 (14-36) U/L ALT 15 (4-34) U/L Alkaline Phosphatase 93 (38-126) U/L Total Protein 7.3 (6.3-8.2) g/dL Albumin 4.6 (3.5-5.0) g/dL Amylase 51 (30-110) U/L Lipase 66 (23-300) U/L Urine Color Yellow Urine Appearance Clear (Clear) Urine pH 6.5 (5.0-8.0) Ur Specific [place] 1.017 (1.001-1.035) Urine Protein Trace H (Negative) Urine Glucose (UA) Negative (Negative) Urine Ketones 1+ H (Negative) Urine Blood Negative (Negative) Urine Nitrite Negative (Negative) Urine Bilirubin Negative (Negative) Urine Urobilinogen <2.0 (<2.0) mg/dL Ur Leukocyte Esterase Negative (Negative) Disposition Clinical Impression: Nausea & vomiting Disposition: ADMITTED IP TO THIS [facility] Condition: Stable Instructions (If sedation given, give patient instructions): Acute Nausea and Vomiting (ED) Additional Instructions: Follow-up with your primary care physician's and pain management specialty. Also reported a following up with GI. Take mag citrate to help promote bowel movements. Is patient prescribed a controlled substance at d/c from ED?: No Referrals: None,Stated [Primary Care Provider] - 1-2 days Araseli Beltre MD [STAFF PHYSICIAN] - 1-2 days Shayla Gee MD [STAFF PHYSICIAN] - 1-2 days Aliya Cosme MD [REFERRING] - 1-2 days Time of Disposition: 12:32
[2019-10-26 10:20] LABS: Basophils # (A) 0.1 k/uL (0-0.2); Basophils % (A) 1 %; Eosinophils # (A) 0.1 k/uL (0-0.7); Eosinophils % (A) 1 %; HCT 45.2 % (34.0-46.0); HGB 15.4 gm/dL (11.4-16.0); Lymphocytes # (A) 1.8 k/uL (1.0-4.8); Lymphocytes % (A) 17 %; MCH 29.6 pg (25.0-35.0); MCHC 34.2 g/dL (31.0-37.0); MCV 86.7 fL (80.0-100.0); Mean Platelet Volume 7.8; Monocytes # (A) 0.5 k/uL (0-1.0); Monocytes % (A) 4 %; Neutrophils # (A) 8.4 k/uL (1.3-7.7); Neutrophils % (A) 76 %; Platelet Count 319 k/uL (150-450); RBC 5.22 m/uL (3.80-5.40); RDW 13.9 % (11.5-15.5)
[2019-10-26 10:21] LABS: ALT 15 U/L (4-34); AST 22 U/L (14-36); African American GFR (CKD) >90 (>60 ml/min/1.73 sqM); Albumin 4.6 g/dL (3.5-5.0); Alkaline Phosphatase 93 U/L (38-126); Amylase 51 U/L (30-110); Anion Gap 13 mmol/L; Blood Urea Nitrogen 19 mg/dL (7-17); Calcium 9.9 mg/dL (8.4-10.2); Carbon Dioxide 22 mmol/L (22-30); Chloride 105 mmol/L (98-107); Glucose 141 mg/dL (74-99); Non-African American GFR(CKD) >90 (>60 ml/min/1.73 sqM); Potassium 3.3 mmol/L (3.5-5.1); Sodium 140 mmol/L (137-145); Total Bilirubin 0.6 mg/dL (0.2-1.3); Total Protein 7.3 g/dL (6.3-8.2)
--- NOTE | 2019-10-26 10:57 | XR ---
EXAMINATION TYPE: XR KUB DATE OF EXAM: 10/26/2019 10:49 AM CLINICAL HISTORY: Abdominal pain TECHNIQUE: Single upright image of the abdomen is obtained. COMPARISON: 10/24/2019. FINDINGS: Scattered gas is seen in nondilated small bowel loops. Gas and fecal material is seen in no ndilated colon. Postsurgical changes seen at the lumbosacral junction. Right hip arthroplasty is note d. No abnormal calcification in the abdomen. Moderate degree colonic fecal stasis. The lung bases are clear and the osseous structures are intact. IMPRESSION: Moderate degree colonic fecal stasis in an overall nonobstructive bowel gas pattern.
[2019-10-26] MEDS ORDERED: HYDROcodone/APAP 5-325MG 1 EACH TAB PO STA (11:16)
[2019-10-26] MEDS ORDERED: MAGNESIUM CITRATE 296 ML BOTTLE PO ONE (12:00)
[2019-10-26] MEDS ORDERED: METOCLOPRAMIDE 5 MG/ML 2 ML VIAL IVP STA (12:04)
[2019-10-26 12:06] LABS: Appearance,Urine Clear (Clear); Bilirubin,Urine Negative (Negative); Blood,Urine Negative (Negative); Color,Urine Yellow; Glucose,Urine (UA) Negative (Negative); Ketones,Urine 1+ (Negative); Leukocyte Esterase,Urine Negative (Negative); Nitrite,Urine Negative (Negative); PH, Urine 6.5 (5.0-8.0); Protein,Urine Trace (Negative); Specific Gravity,Urine 1.017 (1.001-1.035); Urobilinogen,Urine <2.0 mg/dL (<2.0)
[2019-10-26 12:57] VITALS: BP 198/108; PULSE 63; RESP 18; TEMP 98.3
== END 2019-10-26 12:57 | disposition other institution (70) ==
LOC: EC 09:18
DX: R11.2 Nausea with vomiting, unspecified (principal); K59.00 Constipation, unspecified; R10.9 Unspecified abdominal pain; R68.83 Chills (without fever); M19.90 Unspecified osteoarthritis, unspecified site; F17.200 Nicotine dependence, unspecified, uncomplicated; Z88.1 Allergy status to other antibiotic agents; Z88.6 Allergy status to analgesic agent; Z79.891 Long term (current) use of opiate analgesic; Z96.652 Presence of left artificial knee joint; Z83.79 Family history of other diseases of the digestive system
CPT/HCPCS: 99285; 96374; 96375 ×4; 96361; 36415; 80053; 82150; 83690; 85025; 81003; 74018; J2765; J2405; J1885; C9113

== ENCOUNTER 2019-10-29 07:34 | Emergency (ER) | payer MEDICARE ==
[2019-10-29] MEDS ORDERED: SODIUM CHLORIDE 0.9% 1,000 ML IV STA (07:47)
[2019-10-29] MEDS ORDERED: METOCLOPRAMIDE 5 MG/ML 2 ML VIAL IVP STA (07:47)
--- NOTE | 2019-10-29 07:58 | ED ---
General Adult HPI - General Chief complaint: Nausea/Vomiting/Diarrhea Stated complaint: Nausea, vomiting Time Seen by Provider: 10/29/19 07:40 Source: patient, RN notes reviewed, old records reviewed Mode of arrival: EMS Limitations: no limitations - History of Present Illness Initial comments: This is a 64-year-old female who presents to the emergency room multiple times for nausea and vomiting. Initially she states people thought it was because she was out of her Suboxone but she continues to have these episodes even though she's been off Suboxone for a month and a half. Patient denies any diarrhea. Patient states she has diffuse abdominal pain. Patient denies any chest pain difficulty breathing shortness of breath. Patient patient denies any fever chills. Patient denies any blood in the emesis. Patient denies any recent drug use. Patient states she has back pain but is chronic. Patient denies any headache patient denies numbness weakness. - Related Data Home Medications Medication Instructions Recorded Confirmed Ergocalciferol [Vitamin D2 50,000 unit PO Q7D 03/01/18 10/26/19 (DRISDOL)] Butalb/APAP/Caff 50-325-40Mg 1 tab PO Q12HR PRN 10/26/19 10/26/19 [Fioricet 50-325-40] Previous Rx's Medication Instructions Recorded Acetaminophen Tab [Tylenol] 325 mg PO Q6HR PRN #30 tab 10/20/19 DULoxetine HCL [Cymbalta] 60 mg PO DAILY #30 cap 10/20/19 Ibuprofen [Motrin] 400 mg PO Q6HR PRN 5 Days #20 tab 10/20/19 Losartan Potassium 50 mg PO DAILY #30 10/20/19 Omeprazole 40 mg PO DAILY #30 cap 10/20/19 Ondansetron Odt [Zofran ODT] 4 mg PO Q8HR PRN #90 tab 10/20/19 Rosuvastatin [Crestor] 10 mg PO HS #30 tab 10/20/19 amLODIPine [Norvasc] 5 mg PO DAILY #30 tab 10/20/19 diphenhydrAMINE [Benadryl] 25 mg PO BID PRN 7 Days #14 capsule 10/20/19 levETIRAcetam [Keppra] 500 mg PO BID #60 tab 10/20/19 Allergies Allergy/AdvReac Type Severity Reaction Status Date / Time nitrofurantoin AdvReac Abdominal Verified 10/29/19 07:40 [From Macrobid] Pain/Nausea/Vomiting NSAIDS (Non-Steroidal AdvReac Nausea & Verified 10/29/19 07:40 Anti-Inflamma Vomiting Review of Systems ROS Statement: Those systems with pertinent positive or pertinent negative responses have been documented in the HPI. ROS Other: All systems not noted in ROS Statement are negative. Past Medical History Past Medical History: Asthma, Fibromyalgia, Hyperlipidemia, Hypertension, Memory Impairment, Musculoskeletal Disorder, Osteoarthritis (OA), Seizure Disorder Additional Past Medical History / Comment(s): BACK PAIN, SHORT TERM MEMORY LOSS, history of lumbar spine surgery 2 at outside institutions. History of multiple treatments and procedures with interventional pain management chronically. She is on chronic high-dose oral pain medications including morphine and Percocet. with pain management. History of Any Multi-Drug Resistant Organisms: None Reported Past Surgical History: Adenoidectomy, Back Surgery, Breast Surgery, Joint Replacement, Orthopedic Surgery, Tonsillectomy Additional Past Surgical History / Comment(s): , LT HAND SURGERY, RT GANGLION CYST REMOVED, LEEP, COLONOSCOPY, EGD, MIGUEL A. CATARACT WITH LENS IMLANTS,RT BREAST BIOPSY, 2 BACK SURGERIES- ONE WAS A LAMINECTOMY, TOTAL LEFT KNEE Past Anesthesia/Blood Transfusion Reactions: No Reported Reaction Past Psychological History: No Psychological Hx Reported Smoking Status: Current some day smoker Past Alcohol Use History: None Reported Past Drug Use History: None Reported - Past Family History Brother(s) Family Medical History: Cancer Additional Family Medical History / Comment(s): PANCREATITIS Mother Family Medical History: Hypertension, Memory Impairment Additional Family Medical History / Comment(s): ALZHEIMER'S Father Family Medical History: Coronary Artery Disease (CAD) Additional Family Medical History / Comment(s): HEART PROBLEMS-HAD QUAD- CABG, ALCOHOLISM General Exam - General Exam Comments Initial Comments: GENERAL: Patient is well-developed and well-nourished. Patient is nontoxic and well- hydrated and is in mild distress. ENT: Neck is soft and supple. No significant lymphadenopathy is noted. Oropharynx is clear. Moist mucous membranes. Neck has full range of motion without eliciting any pain. EYES: The sclera were anicteric and conjunctiva were pink and moist. Extraocular movements were intact and pupils were equal round and reactive to light. Eyelids were unremarkable. PULMONARY: Unlabored respirations. Good breath sounds bilaterally. No audible rales rhonchi or wheezing was noted. CARDIOVASCULAR: There is a regular rate and rhythm without any murmurs gallops or rubs. ABDOMEN: Patient has some mid abdominal pain. No rebound or guarding SKIN: Skin is clear with no lesions or rashes and otherwise unremarkable. NEUROLOGIC: Patient is alert and oriented x3. Cranial nerves II through XII are grossly intact. Motor and sensory are also intact. Normal speech, volume and content. Symmetrical smile. MUSCULOSKELETAL: Normal extremities with adequate strength and full range of motion. LYMPHATICS: No significant lymphadenopathy is noted PSYCHIATRIC: Normal psychiatric evaluation. Limitations: no limitations Course Vital Signs 10/29/19 07:38 Temperature 97.8 F Pulse Rate 70 Respiratory 18 Rate Blood Pressure 169/99 O2 Sat by Pulse 99 Oximetry Medical Decision Making - Medical Decision Making Computed tomography scan of the abdomen and pelvis shows a large right renal cyst. I spoke to the patient about this told her she needed to follow-up to determine if this was just a simple cyst or a cystic renal cell carcinoma. Patient agreed she understood and will follow-up - Lab Data Result diagrams: 10/29/19 08:01 10/29/19 08:01 Lab Results 10/29/19 10/29/19 10/29/19 Range/Units 07:51 08:01 08:01 WBC 6.9 (3.8-10.6) k/uL RBC 5.38 (3.80-5.40) m/uL Hgb 15.7 (11.4-16.0) gm/dL Hct 46.7 H (34.0-46.0) % MCV 86.9 (80.0-100.0) fL MCH 29.1 (25.0-35.0) pg MCHC 33.5 (31.0-37.0) g/dL RDW 14.0 (11.5-15.5) % Plt Count 321 (150-450) k/uL Neutrophils % 75 % Lymphocytes % 20 % Monocytes % 3 % Eosinophils % 1 % Basophils % 1 % Neutrophils # 5.2 (1.3-7.7) k/uL Lymphocytes # 1.4 (1.0-4.8) k/uL Monocytes # 0.2 (0-1.0) k/uL Eosinophils # 0.1 (0-0.7) k/uL Basophils # 0.0 (0-0.2) k/uL Sodium 140 (137-145) mmol/L Potassium 3.0 L (3.5-5.1) mmol/L Chloride 102 (98-107) mmol/L Carbon Dioxide 25 (22-30) mmol/L Anion Gap 13 mmol/L BUN 16 (7-17) mg/dL Creatinine 0.56 (0.52-1.04) mg/dL Est GFR (CKD-EPI)AfAm >90 (>60 ml/min/1.73 sqM) Est GFR (CKD-EPI)NonAf >90 (>60 ml/min/1.73 sqM) Glucose 147 H (74-99) mg/dL Calcium 10.1 (8.4-10.2) mg/dL Total Bilirubin 0.7 (0.2-1.3) mg/dL AST 27 (14-36) U/L ALT 15 (4-34) U/L Alkaline Phosphatase 101 (38-126) U/L Total Protein 7.7 (6.3-8.2) g/dL Albumin 4.8 (3.5-5.0) g/dL Amylase 64 (30-110) U/L Lipase 49 (23-300) U/L Urine Color Yellow Urine Appearance Clear (Clear) Urine pH 6.5 (5.0-8.0) Ur Specific [place] 1.024 (1.001-1.035) Urine Protein 1+ H (Negative) Urine Glucose (UA) Trace H (Negative) Urine Ketones 1+ H (Negative) Urine Blood Negative (Negative) Urine Nitrite Negative (Negative) Urine Bilirubin Negative (Negative) Urine Urobilinogen 4.0 (<2.0) mg/dL Ur Leukocyte Esterase Trace H (Negative) Urine RBC 1 (0-5) /hpf Urine WBC 3 (0-5) /hpf Ur Squamous Epith Cells 2 (0-4) /hpf Hyaline Casts 13 H (0-2) /lpf Urine Mucus Many H (None) /hpf Urine Opiates Screen Not Detected (NotDetected) Ur Oxycodone Screen Not Detected (NotDetected) Urine Methadone Screen Not Detected (NotDetected) Ur Propoxyphene Screen Not Detected (NotDetected) Ur Barbiturates Screen Detected H (NotDetected) U Tricyclic Antidepress Not Detected (NotDetected) Ur Phencyclidine Scrn Not Detected (NotDetected) Ur Amphetamines Screen Not Detected (NotDetected) U Methamphetamines Scrn Not Detected (NotDetected) U Benzodiazepines Scrn Not Detected (NotDetected) Urine Cocaine Screen Not Detected (NotDetected) U Marijuana (THC) Screen Not Detected (NotDetected) Disposition Clinical Impression: Acute vomiting, Kidney lesion, coquille, right Disposition: HOME SELF-CARE Condition: Good Instructions (If sedation given, give patient instructions): Acute Nausea and Vomiting (ED) Additional Instructions: Patient needs to follow-up with primary medical care doctor for further evaluation of the right kidney. Is patient prescribed a controlled substance at d/c from ED?: No Referrals: Quinn Mosley MD [Medical Doctor] - 1-2 days Time of Disposition: 08:52
[2019-10-29 08:19] LABS: Basophils % (A) 1 %; Eosinophils # (A) 0.1 k/uL (0-0.7); Eosinophils % (A) 1 %; HCT 46.7 % (34.0-46.0); HGB 15.7 gm/dL (11.4-16.0); Lymphocytes # (A) 1.4 k/uL (1.0-4.8); Lymphocytes % (A) 20 %; MCH 29.1 pg (25.0-35.0); MCHC 33.5 g/dL (31.0-37.0); MCV 86.9 fL (80.0-100.0); Mean Platelet Volume 7.2; Monocytes # (A) 0.2 k/uL (0-1.0); Monocytes % (A) 3 %; Neutrophils # (A) 5.2 k/uL (1.3-7.7); Neutrophils % (A) 75 %; Platelet Count 321 k/uL (150-450); RBC 5.38 m/uL (3.80-5.40); WBC 6.9 k/uL (3.8-10.6)
[2019-10-29 08:22] LABS: Appearance,Urine Clear (Clear); Bilirubin,Urine Negative (Negative); Blood,Urine Negative (Negative); Color,Urine Yellow; Glucose,Urine (UA) Trace (Negative); Hyaline Casts,Urine 13 /lpf (0-2); Ketones,Urine 1+ (Negative); Leukocyte Esterase,Urine Trace (Negative); Mucus,Urine Many /hpf; Nitrite,Urine Negative (Negative); PH, Urine 6.5 (5.0-8.0); Protein,Urine 1+ (Negative); RBC,Urine 1 /hpf (0-5); Specific Gravity,Urine 1.024 (1.001-1.035); Squamous Epithelial Cell,Urine 2 /hpf (0-4); WBC,Urine 3 /hpf (0-5)
[2019-10-29 08:27] LABS: ALT 15 U/L (4-34); AST 27 U/L (14-36); African American GFR (CKD) >90 (>60 ml/min/1.73 sqM); Albumin 4.8 g/dL (3.5-5.0); Alkaline Phosphatase 101 U/L (38-126); Amylase 64 U/L (30-110); Anion Gap 13 mmol/L; Blood Urea Nitrogen 16 mg/dL (7-17); Calcium 10.1 mg/dL (8.4-10.2); Carbon Dioxide 25 mmol/L (22-30); Chloride 102 mmol/L (98-107); Glucose 147 mg/dL (74-99); Non-African American GFR(CKD) >90 (>60 ml/min/1.73 sqM); Sodium 140 mmol/L (137-145); Total Bilirubin 0.7 mg/dL (0.2-1.3); Total Protein 7.7 g/dL (6.3-8.2)
[2019-10-29 08:34] LABS: Amphetamine Screen,Urine Not Detected (NotDetected); Benzodiazepines Screen,Urine Not Detected (NotDetected); Cocaine Screen,Urine Not Detected (NotDetected); Opiate Screen,Urine Not Detected (NotDetected); Phencyclidine Screen,Urine Not Detected (NotDetected); Urn Cannabinoid Scrn Not Detected (NotDetected)
[2019-10-29 08:35] LABS: Barbiturate Screen,Urine Detected (NotDetected); Methadone Screen, Urine Not Detected (NotDetected); Oxycodone Screen, Urine Not Detected (NotDetected); Tricyclic Antidepressant,Urine Not Detected (NotDetected)
--- NOTE | 2019-10-29 08:42 | CT ---
EXAMINATION TYPE: CT abdomen pelvis w con DATE OF EXAM: 10/29/2019 COMPARISON: 07/23/2019 HISTORY: 64-year-old female Nausea and vomiting TECHNIQUE: Contiguous axial scanning of the abdomen and pelvis following administration of 100 ml Iso josue 300 IV contrast. Delayed images through the kidneys and coronal/sagittal reconstructions perform ed. CT DLP: 1066.2 mGycm Automated exposure control for dose reduction was used. FINDINGS: Heart normal size without pericardial effusion. Lung bases clear without pleural effusion. Tiny hiatal hernia. No focal liver lesion or biliary ductal dilatation. Portal venous system is patent. Suggestion of a 5 mm gallstone. Stable 6 mm left adrenal nodule. Right adrenal gland, left kidney, spleen, and pancreas appear within normal limits. There is a complex, heterogeneous lesion lateral lower pole right kidney currently measuring 2.1 x 1. 4 cm versus 1.6 x 1.3 cm on 07/23/2019. Mild atelectatic calcifications abdominal aorta and iliac arteries without aneurysm. No dilated small bowel, free fluid, or free air. No mesenteric or retroperitoneal lymphadenopathy. Normal appendix. Moderate stool burden without pericolonic inflammatory change. Prominent artifact from the patient's right total hip arthroplasty limits visualization of the pelvic structures. Bladder partially distended. Uterus and ovaries are visualized. No abnormal fluid collection in the p james or pelvic lymphadenopathy seen. Bones: Right hip hemiarthroplasty. Moderate to advanced degenerative disc disease throughout the lumb ar spine with L5-S1 posterior and interbody fusion. Hypertrophic facet arthropathy above with grade 1 anterolisthesis at L4-L5. IMPRESSION: 1. ENLARGING HETEROGENEOUS LESION LATERAL LOWER POLE RIGHT KIDNEY MEASURING 2.1 X 1.4 CM (VERSUS 1.6 X 1.3 CM ON 07/23/2019). CYSTIC RCC NEEDS TO BE EXCLUDED. APPROPRIATE FURTHER WORKUP AND EVALUATION IS RECOMMENDED. 2. MODERATE STOOL BURDEN. 3. 5 MM GALLSTONE AND TINY HIATAL HERNIA.
[2019-10-29 09:18] VITALS: BP 128/74; PULSE 64; RESP 16; TEMP 97
== END 2019-10-29 09:17 | disposition home or self-care (01) ==
LOC: EC 07:34
DX: N28.9 Disorder of kidney and ureter, unspecified (principal); R11.10 Vomiting, unspecified; I10 Essential (primary) hypertension; F17.200 Nicotine dependence, unspecified, uncomplicated; Z88.1 Allergy status to other antibiotic agents; Z88.6 Allergy status to analgesic agent
CPT/HCPCS: 36415; 80053; 82150; 83690; 85025; 81001; 80306; 74177; 99285; 96374; 96361; J2765; Q9967

== ENCOUNTER 2019-11-05 09:48 | Emergency (ER) | payer MEDICARE ==
[2019-11-05 09:57] VITALS: PULSE 80; RESP 18
[2019-11-05] MEDS ORDERED: diphenhydrAMINE 50 MG/ML 1 ML VIAL IVP STA (10:08)
[2019-11-05] MEDS ORDERED: SODIUM CHLORIDE 0.9% 500 ML 500 ML IV STA (10:08)
[2019-11-05] MEDS ORDERED: hydrALAZINE HCL 20 MG/ML 1 ML VIAL IVP STA (10:08)
[2019-11-05] MEDS ORDERED: SODIUM CHLORIDE 0.9% 1,000 ML IV STA (10:08)
[2019-11-05] MEDS ORDERED: cloNIDine HCL 0.1 MG TAB PO STA (10:08)
[2019-11-05] MEDS ORDERED: PROMETHAZINE INJ 25 MG in SODIUM CHLORIDE 0.9% 50 ML IVPB STA (10:10)
--- NOTE | 2019-11-05 10:21 | ED ---
Abdominal Pain HPI - General Chief Complaint: Abdominal Pain Stated Complaint: Nausea/vomiting Time Seen by Provider: 11/05/19 10:04 Source: patient, EMS, RN notes reviewed Mode of arrival: EMS Limitations: no limitations - History of Present Illness Initial Comments: This a 64-year-old female presents emergency department via EMS chief complaint of nausea vomiting. She states she started getting sick around 1 AM this morning. She's had several ER visits last several months for similar complaints. This is related to her Suboxone she believes. She was discontinued approximately 7 weeks ago. Patient states that she still having issues. Patient is requesting narcotic pain medications. Patient denies chest pain, shortness breath, fevers or chills. Patient states she has no back pain or any pain areas from her abdomen into her back or chest. She has no localized abdominal pain, she complains of diffuse upset stomach feeling. Patient states that she did not take any medications this morning because she was vomiting. She has mid that she's been constipated no diarrhea no dysuria no hematuria. - Related Data Home Medications Medication Instructions Recorded Confirmed Ergocalciferol [Vitamin D2 50,000 unit PO Q7D 03/01/18 10/26/19 (DRISDOL)] Butalb/APAP/Caff 50-325-40Mg 1 tab PO Q12HR PRN 10/26/19 10/26/19 [Fioricet 50-325-40] Previous Rx's Medication Instructions Recorded Acetaminophen Tab [Tylenol] 325 mg PO Q6HR PRN #30 tab 10/20/19 DULoxetine HCL [Cymbalta] 60 mg PO DAILY #30 cap 10/20/19 Ibuprofen [Motrin] 400 mg PO Q6HR PRN 5 Days #20 tab 10/20/19 Losartan Potassium 50 mg PO DAILY #30 10/20/19 Omeprazole 40 mg PO DAILY #30 cap 10/20/19 Ondansetron Odt [Zofran ODT] 4 mg PO Q8HR PRN #90 tab 10/20/19 Rosuvastatin [Crestor] 10 mg PO HS #30 tab 10/20/19 amLODIPine [Norvasc] 5 mg PO DAILY #30 tab 10/20/19 diphenhydrAMINE [Benadryl] 25 mg PO BID PRN 7 Days #14 capsule 12/27/19 levETIRAcetam [Keppra] 500 mg PO BID #60 tab 10/20/19 Ondansetron Odt [Zofran Odt] 4 mg PO Q8HR PRN #10 tab 11/05/19 Allergies Allergy/AdvReac Type Severity Reaction Status Date / Time nitrofurantoin AdvReac Abdominal Verified 10/29/19 07:40 [From Macrobid] Pain/Nausea/Vomiting NSAIDS (Non-Steroidal AdvReac Nausea & Verified 10/29/19 07:40 Anti-Inflamma Vomiting Review of Systems ROS Statement: Those systems with pertinent positive or pertinent negative responses have been documented in the HPI. ROS Other: All systems not noted in ROS Statement are negative. Past Medical History Past Medical History: Asthma, Fibromyalgia, Hyperlipidemia, Hypertension, Memory Impairment, Musculoskeletal Disorder, Osteoarthritis (OA), Seizure Disorder Additional Past Medical History / Comment(s): BACK PAIN, SHORT TERM MEMORY LOSS, history of lumbar spine surgery 2 at outside institutions. History of multiple treatments and procedures with interventional pain management chronically. She is on chronic high-dose oral pain medications including morphine and Percocet. with pain management. History of Any Multi-Drug Resistant Organisms: None Reported Past Surgical History: Adenoidectomy, Back Surgery, Breast Surgery, Joint Replacement, Orthopedic Surgery, Tonsillectomy Additional Past Surgical History / Comment(s): , LT HAND SURGERY, RT GANGLION CYST REMOVED, LEEP, COLONOSCOPY, EGD, MIGUEL A. CATARACT WITH LENS IMLANTS,RT BREAST BIOPSY, 2 BACK SURGERIES- ONE WAS A LAMINECTOMY, TOTAL LEFT KNEE Past Anesthesia/Blood Transfusion Reactions: No Reported Reaction Past Psychological History: No Psychological Hx Reported Smoking Status: Current some day smoker Past Alcohol Use History: None Reported Past Drug Use History: None Reported - Past Family History Brother(s) Family Medical History: Cancer Additional Family Medical History / Comment(s): PANCREATITIS Mother Family Medical History: Hypertension, Memory Impairment Additional Family Medical History / Comment(s): ALZHEIMER'S Father Family Medical History: Coronary Artery Disease (CAD) Additional Family Medical History / Comment(s): HEART PROBLEMS-HAD QUAD- CABG, ALCOHOLISM General Exam Limitations: no limitations General appearance: alert, in no apparent distress Head exam: Present: atraumatic, normocephalic, normal inspection Eye exam: Present: normal appearance, PERRL, EOMI. Absent: scleral icterus, conjunctival injection, periorbital swelling ENT exam: Present: normal exam, normal oropharynx, mucous membranes moist Neck exam: Present: normal inspection, full ROM. Absent: tenderness, meningismus, lymphadenopathy Respiratory exam: Present: normal lung sounds bilaterally. Absent: respiratory distress, wheezes, rales, rhonchi, stridor Cardiovascular Exam: Present: regular rate, normal rhythm, normal heart sounds. Absent: systolic murmur, diastolic murmur, rubs, gallop, clicks GI/Abdominal exam: Present: soft, tenderness (Mild diffuse), normal bowel s ounds. Absent: distended, guarding, rebound, rigid Back exam: Absent: CVA tenderness (R), CVA tenderness (L) Neurological exam: Present: alert, oriented X3 Skin exam: Present: warm, dry, intact, normal color. Absent: rash Course Vital Signs 11/05/19 11/05/19 09:50 11:50 Temperature 97.8 F Pulse Rate 80 80 Respiratory 18 18 Rate Blood Pressure 224/114 154/106 O2 Sat by Pulse 99 98 Oximetry Medical Decision Making - Medical Decision Making Labs are essentially unremarkable. Patient was hydrated, given antiemetics. Patient's had no recurrent vomiting episodes. She has no complaints of chest pa in or shortness of breath at this time. Patient blood pressure was elevated because she did not take her morning medications. Patient was given hydralazine, clonidine blood pressure has improved. Patient will be discharged in stable condition with follow-up. - Lab Data Result diagrams: 11/05/19 10:04 11/05/19 10:04 Lab Results 11/05/19 11/05/19 11/05/19 Range/Units 10:04 10:04 10:28 WBC 7.2 (3.8-10.6) k/uL RBC 5.22 (3.80-5.40) m/uL Hgb 15.2 (11.4-16.0) gm/dL Hct 45.4 (34.0-46.0) % MCV 87.0 (80.0-100.0) fL MCH 29.1 (25.0-35.0) pg MCHC 33.4 (31.0-37.0) g/dL RDW 14.3 (11.5-15.5) % Plt Count 337 (150-450) k/uL Neutrophils % 74 % Lymphocytes % 19 % Monocytes % 3 % Eosinophils % 1 % Basophils % 1 % Neutrophils # 5.3 (1.3-7.7) k/uL Lymphocytes # 1.4 (1.0-4.8) k/uL Monocytes # 0.2 (0-1.0) k/uL Eosinophils # 0.1 (0-0.7) k/uL Basophils # 0.1 (0-0.2) k/uL Sodium 138 (137-145) mmol/L Potassium 3.4 L (3.5-5.1) mmol/L Chloride 100 (98-107) mmol/L Carbon Dioxide 28 (22-30) mmol/L Anion Gap 10 mmol/L BUN 10 (7-17) mg/dL Creatinine 0.50 L (0.52-1.04) mg/dL Est GFR (CKD-EPI)AfAm >90 (>60 ml/min/1.73 sqM) Est GFR (CKD-EPI)NonAf >90 (>60 ml/min/1.73 sqM) Glucose 124 H (74-99) mg/dL Calcium 9.9 (8.4-10.2) mg/dL Total Bilirubin 0.6 (0.2-1.3) mg/dL AST 24 (14-36) U/L ALT 14 (4-34) U/L Alkaline Phosphatase 103 (38-126) U/L Total Protein 7.3 (6.3-8.2) g/dL Albumin 4.6 (3.5-5.0) g/dL Amylase 46 (30-110) U/L Lipase 23 (23-300) U/L Urine Color Yellow Urine Appearance Cloudy H (Clear) Urine pH 8.0 (5.0-8.0) Ur Specific [place] 1.014 (1.001-1.035) Urine Protein Trace H (Negative) Urine Glucose (UA) Negative (Negative) Urine Ketones 1+ H (Negative) Urine Blood Negative (Negative) Urine Nitrite Negative (Negative) Urine Bilirubin Negative (Negative) Urine Urobilinogen <2.0 (<2.0) mg/dL Ur Leukocyte Esterase Negative (Negative) Urine RBC <1 (0-5) /hpf Urine WBC 1 (0-5) /hpf Ur Squamous Epith Cells <1 (0-4) /hpf Amorphous Sediment Few H (None) /hpf Urine Bacteria Rare H (None) /hpf Hyaline Casts 1 (0-2) /lpf Urine Mucus Rare H (None) /hpf Disposition Clinical Impression: Nausea & vomiting, Constipation Disposition: HOME SELF-CARE Condition: Stable Instructions (If sedation given, give patient instructions): Acute Nausea and Vomiting (ED) Additional Instructions: Take [id number] laxatives for constipation as directed.Please return to the Emergency Department if symptoms worsen or any other concerns. Prescriptions: Ondansetron Odt [Zofran Odt] 4 mg PO Q8HR PRN #10 tab PRN Reason: Nausea Is patient prescribed a controlled substance at d/c from ED?: No Referrals: None,Stated [Primary Care Provider] - 1-2 days Time of Disposition: 11:56
[2019-11-05 10:37] LABS: Basophils # (A) 0.1 k/uL (0-0.2); Basophils % (A) 1 %; Eosinophils # (A) 0.1 k/uL (0-0.7); Eosinophils % (A) 1 %; HCT 45.4 % (34.0-46.0); HGB 15.2 gm/dL (11.4-16.0); Lymphocytes # (A) 1.4 k/uL (1.0-4.8); Lymphocytes % (A) 19 %; MCH 29.1 pg (25.0-35.0); MCHC 33.4 g/dL (31.0-37.0); Mean Platelet Volume 7.5; Monocytes # (A) 0.2 k/uL (0-1.0); Monocytes % (A) 3 %; Neutrophils # (A) 5.3 k/uL (1.3-7.7); Neutrophils % (A) 74 %; Platelet Count 337 k/uL (150-450); RBC 5.22 m/uL (3.80-5.40); RDW 14.3 % (11.5-15.5); WBC 7.2 k/uL (3.8-10.6)
[2019-11-05 10:46] LABS: ALT 14 U/L (4-34); AST 24 U/L (14-36); African American GFR (CKD) >90 (>60 ml/min/1.73 sqM); Albumin 4.6 g/dL (3.5-5.0); Alkaline Phosphatase 103 U/L (38-126); Amylase 46 U/L (30-110); Anion Gap 10 mmol/L; Blood Urea Nitrogen 10 mg/dL (7-17); Calcium 9.9 mg/dL (8.4-10.2); Carbon Dioxide 28 mmol/L (22-30); Chloride 100 mmol/L (98-107); Glucose 124 mg/dL (74-99); Non-African American GFR(CKD) >90 (>60 ml/min/1.73 sqM); Potassium 3.4 mmol/L (3.5-5.1); Sodium 138 mmol/L (137-145); Total Bilirubin 0.6 mg/dL (0.2-1.3); Total Protein 7.3 g/dL (6.3-8.2)
--- NOTE | 2019-11-05 11:08 | XR ---
EXAMINATION TYPE: XR KUB , 3 VIEWS DATE OF EXAM ORDERED: 11/05/2019 HISTORY: abdominal pain. COMPARISON: Previous study dated 10/26/2019. FINDINGS: There has been previous interpedicular fusion at L5-S1 bilaterally. There is a right hip h emiarthroplasty. The lung bases are clear. The abdominal gas pattern is within normal limits. There is no evidence of obstruction or free air. N o unusual calcifications are seen. IMPRESSION: NO ACUTE INTRA-ABDOMINAL ABNORMALITY.
[2019-11-05 12:48] LABS: Amorphous Sediment,Urine Few /hpf; Appearance,Urine Cloudy (Clear); Bacteria,Urine Rare /hpf; Bilirubin,Urine Negative (Negative); Blood,Urine Negative (Negative); Color,Urine Yellow; Glucose,Urine (UA) Negative (Negative); Hyaline Casts,Urine 1 /lpf (0-2); Ketones,Urine 1+ (Negative); Leukocyte Esterase,Urine Negative (Negative); Mucus,Urine Rare /hpf; Nitrite,Urine Negative (Negative); Protein,Urine Trace (Negative); RBC,Urine <1 /hpf (0-5); Specific Gravity,Urine 1.014 (1.001-1.035); Squamous Epithelial Cell,Urine <1 /hpf (0-4); Urobilinogen,Urine <2.0 mg/dL (<2.0); WBC,Urine 1 /hpf (0-5)
[2019-11-05 13:02] VITALS: BP 150/96; TEMP 98.1
== END 2019-11-05 12:57 | disposition home or self-care (01) ==
LOC: EC 09:48
DX: K59.00 Constipation, unspecified (principal); R11.2 Nausea with vomiting, unspecified; I10 Essential (primary) hypertension; F17.200 Nicotine dependence, unspecified, uncomplicated; Z88.1 Allergy status to other antibiotic agents; Z88.6 Allergy status to analgesic agent
CPT/HCPCS: 36415; 80053; 82150; 83690; 85025; 81001; 74018; 99284; 96365; 96375 ×2; J0360; J1200; J2550

== ENCOUNTER 2019-11-09 10:47 | Emergency (ER) | payer MEDICARE ==
[2019-11-09 10:55] VITALS: TEMP 97.8
[2019-11-09] MEDS ORDERED: diphenhydrAMINE 50 MG/ML 1 ML VIAL IVP STA (11:10)
[2019-11-09] MEDS ORDERED: SODIUM CHLORIDE 0.9% 500 ML 500 ML IV STA (11:10)
[2019-11-09] MEDS ORDERED: METOCLOPRAMIDE 5 MG/ML 2 ML VIAL IVP STA (11:10)
--- NOTE | 2019-11-09 11:14 | ED ---
General Adult HPI - General Chief complaint: Nausea/Vomiting/Diarrhea Stated complaint: NAUSEA/VOMITTING Time Seen by Provider: 11/09/19 11:01 Source: patient, EMS, RN notes reviewed, old records reviewed Mode of arrival: EMS Limitations: no limitations - History of Present Illness Initial comments: 64-year-old female presents for evaluation of nausea and vomiting as well as generalized abdominal pain. Patient states she has been dealing with intermi ttent nausea vomiting and abdominal pain since August. She states she was taken off of her Suboxone in August when she lost her primary care physician. She's had no episodes of nausea and vomiting since that time. She denies a specific location to her pain. States it is generalized and moves, crampy in nature. She had been transported by EMS this morning and given Zofran and fentanyl prior to arrival. She is feeling somewhat better. She had approximate 6 episodes of nonbloody nonbilious vomiting this morning. Denies diarrhea. States she's had some constipation. She has been intermittently prescribed narcotics after ER visits since August but has not been on a daily narcotic r egimen. She has been told in the past that her symptoms are related to opiate withdrawal. No fever or chills. No chest pain or dyspnea. - Related Data Home Medications Medication Instructions Recorded Confirmed Ergocalciferol [Vitamin D2 50,000 unit PO Q7D 03/01/18 10/26/19 (DRISDOL)] Butalb/APAP/Caff 50-325-40Mg 1 tab PO Q12HR PRN 10/26/19 10/26/19 [Fioricet 50-325-40] Previous Rx's Medication Instructions Recorded Acetaminophen Tab [Tylenol] 325 mg PO Q6HR PRN #30 tab 10/20/19 DULoxetine HCL [Cymbalta] 60 mg PO DAILY #30 cap 10/20/19 Ibuprofen [Motrin] 400 mg PO Q6HR PRN 5 Days #20 tab 10/20/19 Losartan Potassium 50 mg PO DAILY #30 10/20/19 Omeprazole 40 mg PO DAILY #30 cap 10/20/19 Ondansetron Odt [Zofran ODT] 4 mg PO Q8HR PRN #90 tab 10/20/19 Rosuvastatin [Crestor] 10 mg PO HS #30 tab 10/20/19 amLODIPine [Norvasc] 5 mg PO DAILY #30 tab 10/20/19 diphenhydrAMINE [Benadryl] 25 mg PO BID PRN 7 Days #14 capsule 10/20/19 levETIRAcetam [Keppra] 500 mg PO BID #60 tab 10/20/19 Ondansetron Odt [Zofran Odt] 4 mg PO Q8HR PRN #10 tab 11/05/19 Allergies Allergy/AdvReac Type Severity Reaction Status Date / Time nitrofurantoin AdvReac Abdominal Verified 10/29/19 07:40 [From Macrobid] Pain/Nausea/Vomiting NSAIDS (Non-Steroidal AdvReac Nausea & Verified 10/29/19 07:40 Anti-Inflamma Vomiting Review of Systems ROS Statement: Those systems with pertinent positive or pertinent negative responses have been documented in the HPI. ROS Other: All systems not noted in ROS Statement are negative. Past Medical History Past Medical History: Asthma, Fibromyalgia, Hyperlipidemia, Hypertension, Memory Impairment, Musculoskeletal Disorder, Osteoarthritis (OA), Seizure Disorder Additional Past Medical History / Comment(s): BACK PAIN, SHORT TERM MEMORY LOSS, history of lumbar spine surgery 2 at outside institutions. History of multiple treatments and procedures with interventional pain management chronically. She is on chronic high-dose oral pain medications including morphine and Percocet. with pain management. History of Any Multi-Drug Resistant Organisms: None Reported Past Surgical History: Adenoidectomy, Back Surgery, Breast Surgery, Joint Replacement, Orthopedic Surgery, Tonsillectomy Additional Past Surgical History / Comment(s): , LT HAND SURGERY, RT GANGLION CYST REMOVED, LEEP, COLONOSCOPY, EGD, MIGUEL A. CATARACT WITH LENS IMLANTS,RT BREAST BIOPSY, 2 BACK SURGERIES- ONE WAS A LAMINECTOMY, TOTAL LEFT KNEE Past Anesthesia/Blood Transfusion Reactions: No Reported Reaction Past Psychological History: No Psychological Hx Reported Smoking Status: Current some day smoker Past Alcohol Use History: None Reported Past Drug Use History: None Reported - Past Family History Brother(s) Family Medical History: Cancer Additional Family Medical History / Comment(s): PANCREATITIS Mother Family Medical History: Hypertension, Memory Impairment Additional Family Medical History / Comment(s): ALZHEIMER'S Father Family Medical History: Coronary Artery Disease (CAD) Additional Family Medical History / Comment(s): HEART PROBLEMS-HAD QUAD- CABG, ALCOHOLISM General Exam Limitations: no limitations General appearance: alert, in no apparent distress Head exam: Present: atraumatic, normocephalic Eye exam: Present: normal appearance, PERRL ENT exam: Present: mucous membranes dry Neck exam: Present: normal inspection. Absent: tenderness, meningismus Respiratory exam: Present: normal lung sounds bilaterally. Absent: respiratory distress, wheezes Cardiovascular Exam: Present: regular rate, normal rhythm GI/Abdominal exam: Present: soft. Absent: distended, tenderness, guarding, rebound Extremities exam: Present: normal inspection, normal capillary refill. Absent: pedal edema, calf tenderness Neurological exam: Present: alert, oriented X3, CN II-XII intact. Absent: motor sensory deficit Psychiatric exam: Present: normal affect, normal mood Skin exam: Present: warm, dry, intact. Absent: cyanosis, diaphoretic Course Vital Signs 11/09/19 11/09/19 11/09/19 10:49 12:48 13:19 Temperature 97.8 F Pulse Rate 70 69 94 Respiratory 16 19 16 Rate Blood Pressure 195/97 203/103 182/91 O2 Sat by Pulse 99 98 98 Oximetry - Reevaluation(s) Reevaluation #1: 11/09/19 13:00 Patient had not taken her oral antihypertensives this morning secondary to vomiting. Reevaluation #2: 11/09/19 13:00 Patient was visualized by the nurse inducing vomiting in the room. Medical Decision Making - Medical Decision Making 62-year-old female presenting with nausea and vomiting. Patient has been seen in this emergency department multiple times with same complaints. Patient is hypertensive she has not taken her oral antihypertensives today. Patient does not currently have a primary care physician. She has been unable to follow-up with gastroenterology regarding these recurrent symptoms. Normal CBC, normal electrolytes. Patient had some computed tomography scan within the past week which had several findings, no acute process. - Lab Data Result diagrams: 11/09/19 11:31 11/09/19 11:31 Lab Results 11/09/19 11/09/19 11/09/19 Range/Units 11:31 11:31 11:58 WBC 6.2 (3.8-10.6) k/uL RBC 5.00 (3.80-5.40) m/uL Hgb 14.9 (11.4-16.0) gm/dL Hct 44.3 (34.0-46.0) % MCV 88.6 (80.0-100.0) fL MCH 29.8 (25.0-35.0) pg MCHC 33.6 (31.0-37.0) g/dL RDW 14.6 (11.5-15.5) % Plt Count 339 (150-450) k/uL Neutrophils % 71 % Lymphocytes % 22 % Monocytes % 4 % Eosinophils % 2 % Basophils % 1 % Neutrophils # 4.4 (1.3-7.7) k/uL Lymphocytes # 1.4 (1.0-4.8) k/uL Monocytes # 0.2 (0-1.0) k/uL Eosinophils # 0.1 (0-0.7) k/uL Basophils # 0.0 (0-0.2) k/uL Sodium 141 (137-145) mmol/L Potassium 4.0 (3.5-5.1) mmol/L Chloride 106 (98-107) mmol/L Carbon Dioxide 24 (22-30) mmol/L Anion Gap 11 mmol/L BUN 14 (7-17) mg/dL Creatinine 0.49 L (0.52-1.04) mg/dL Est GFR (CKD-EPI)AfAm >90 (>60 ml/min/1.73 sqM) Est GFR (CKD-EPI)NonAf >90 (>60 ml/min/1.73 sqM) Glucose 114 H (74-99) mg/dL Calcium 9.3 (8.4-10.2) mg/dL Total Bilirubin 0.6 (0.2-1.3) mg/dL AST 21 (14-36) U/L ALT 15 (4-34) U/L Alkaline Phosphatase 91 (38-126) U/L Total Protein 7.0 (6.3-8.2) g/dL Albumin 4.3 (3.5-5.0) g/dL Lipase 36 (23-300) U/L Urine Color Light Yellow Urine Appearance Clear (Clear) Urine pH 7.0 (5.0-8.0) Ur Specific [place] 1.013 (1.001-1.035) Urine Protein Negative (Negative) Urine Glucose (UA) Negative (Negative) Urine Ketones 1+ H (Negative) Urine Blood Negative (Negative) Urine Nitrite Negative (Negative) Urine Bilirubin Negative (Negative) Urine Urobilinogen <2.0 (<2.0) mg/dL Ur Leukocyte Esterase Small H (Negative) Urine WBC 13 H (0-5) /hpf Ur Squamous Epith Cells <1 (0-4) /hpf Urine Bacteria Rare H (None) /hpf Urine Mucus Rare H (None) /hpf Disposition Clinical Impression: Hypertension, Chronic pain, Nausea & vomiting Disposition: ADMITTED IP TO THIS [facility] Condition: Stable Instructions (If sedation given, give patient instructions): Acute Nausea and Vomiting (ED) Is patient prescribed a controlled substance at d/c from ED?: No Referrals: None,Stated [Primary Care Provider] - 1-2 days Dani Tesfaye MD [STAFF PHYSICIAN] - 1-2 days Decision to Admit Reason: Admit from EC Decision Date: 11/09/19 Decision Time: 13:45
[2019-11-09 12:02] LABS: ALT 15 U/L (4-34); AST 21 U/L (14-36); African American GFR (CKD) >90 (>60 ml/min/1.73 sqM); Albumin 4.3 g/dL (3.5-5.0); Alkaline Phosphatase 91 U/L (38-126); Anion Gap 11 mmol/L; Basophils % (A) 1 %; Blood Urea Nitrogen 14 mg/dL (7-17); Calcium 9.3 mg/dL (8.4-10.2); Carbon Dioxide 24 mmol/L (22-30); Chloride 106 mmol/L (98-107); Eosinophils # (A) 0.1 k/uL (0-0.7); Eosinophils % (A) 2 %; Glucose 114 mg/dL (74-99); HCT 44.3 % (34.0-46.0); HGB 14.9 gm/dL (11.4-16.0); Lymphocytes # (A) 1.4 k/uL (1.0-4.8); Lymphocytes % (A) 22 %; MCH 29.8 pg (25.0-35.0); MCHC 33.6 g/dL (31.0-37.0); MCV 88.6 fL (80.0-100.0); Monocytes # (A) 0.2 k/uL (0-1.0); Monocytes % (A) 4 %; Neutrophils # (A) 4.4 k/uL (1.3-7.7); Neutrophils % (A) 71 %; Non-African American GFR(CKD) >90 (>60 ml/min/1.73 sqM); Platelet Count 339 k/uL (150-450); RDW 14.6 % (11.5-15.5); Sodium 141 mmol/L (137-145); Total Bilirubin 0.6 mg/dL (0.2-1.3); WBC 6.2 k/uL (3.8-10.6)
[2019-11-09] MEDS ORDERED: amLODIPine 5 MG TAB PO STA (12:14)
[2019-11-09 12:19] LABS: Appearance,Urine Clear (Clear); Bacteria,Urine Rare /hpf; Bilirubin,Urine Negative (Negative); Blood,Urine Negative (Negative); Color,Urine Light Yellow; Glucose,Urine (UA) Negative (Negative); Ketones,Urine 1+ (Negative); Leukocyte Esterase,Urine Small (Negative); Mucus,Urine Rare /hpf; Nitrite,Urine Negative (Negative); Protein,Urine Negative (Negative); Specific Gravity,Urine 1.013 (1.001-1.035); Squamous Epithelial Cell,Urine <1 /hpf (0-4); Urobilinogen,Urine <2.0 mg/dL (<2.0); WBC,Urine 13 /hpf (0-5)
[2019-11-09] MEDS ORDERED: ONDANSETRON 4 MG/2 ML VIAL IVP STA (12:30)
[2019-11-09] MEDS ORDERED: KETAMINE 10 MG/ML 20 ML VIAL IV ONE (12:30)
[2019-11-09] MEDS ORDERED: hydrALAZINE HCL 20 MG/ML 1 ML VIAL IVP STA (12:53)
[2019-11-09 13:20] VITALS: BP 182/91; PULSE 94; RESP 16
[2019-11-09] MEDS ORDERED: LORazepam 2 MG/ML INJ IV PRN (14:15)
[2019-11-09] MEDS ORDERED: SODIUM CHLORIDE 0.9% 1,000 ML IV SCH (14:15)
[2019-11-09] MEDS ORDERED: ONDANSETRON 4 MG/2 ML VIAL IVP PRN (14:15)
[2019-11-09] MEDS ORDERED: NALOXONE 0.4 MG/ML 1 ML VIAL IV PRN (14:15)
[2019-11-09] MEDS ORDERED: hydrALAZINE HCL 20 MG/ML 1 ML VIAL IVP PRN (14:16)
[2019-11-09] MEDS ORDERED: diphenhydrAMINE 50 MG/ML 1 ML VIAL IVP PRN (14:16)
[2019-11-09] MEDS ORDERED: METOCLOPRAMIDE 5 MG/ML 2 ML VIAL IVP SCH (18:00)
[2019-11-10] MEDS ORDERED: PANTOPRAZOLE 40 MG/10 ML VIAL IV SCH (09:00)
== END 2019-11-09 14:55 | disposition left against medical advice (07) ==
LOC: EC 10:47 → 3SCARD 14:15 → UNDOADMOB 14:15 → EC 14:55
DX: I10 Essential (primary) hypertension (principal); R11.2 Nausea with vomiting, unspecified; G89.29 Other chronic pain; R10.84 Generalized abdominal pain; K59.00 Constipation, unspecified; M19.90 Unspecified osteoarthritis, unspecified site; Z88.1 Allergy status to other antibiotic agents; Z88.6 Allergy status to analgesic agent; Z96.652 Presence of left artificial knee joint; Z83.79 Family history of other diseases of the digestive system
CPT/HCPCS: 36415; 80053; 83690; 85025; 81001; 99285; 96374; 96375 ×3; 96361; J0360; J1200; J2765; J2405

== ENCOUNTER → 2020-12-16 | Outpatient (CLI) | payer MEDICARE, OTHER ==
--- NOTE | 2020-12-16 15:27 | XR ---
EXAMINATION TYPE: XR chest 2V DATE OF EXAM: 12/16/2020 COMPARISON: 10/18/2019 INDICATION: Cough short of breath TECHNIQUE: Frontal and lateral views of the chest are obtained. FINDINGS: The heart size is normal. The pulmonary vasculature is normal. The lungs are clear. IMPRESSION: 1. No acute pulmonary process.
== END | disposition home or self-care (01) ==
LOC: RADXRMAIN 14:15
PROVIDERS: ATTEND Internal Medicine
DX: J18.9 Pneumonia, unspecified organism (principal)
CPT/HCPCS: 71046

== ENCOUNTER 2021-01-01 02:59 | Emergency (ER) | payer MEDICARE, OTHER ==
--- NOTE | 2021-01-01 03:03 | ED ---
Upper Extremity HPI - General Stated Complaint: Fall Time Seen by Provider: 01/01/21 03:00 Source: RN notes reviewed, old records reviewed Mode of arrival: ambulatory Limitations: no limitations - History of Present Illness Initial Comments: This is a 65-year-old female DF status post fall patient does admit some intoxication tonight, fall with right wrist pain. No other injury from fall not have had a fall from standing loss of consciousness patient is complaining of right wrist pain, again does admit for alcohol, no other injuries, no other significant medical history MD Complaint: Injury to:: right, wrist -: hour(s) Other Extremity Injury: Wrist: Right Other Injuries: none Handedness: right Place: home Severity scale (1-10): 7 Improves With: none Worsens With: none Context: fall Associated Symptoms: denies other symptoms Treatments Prior to Arrival: splint - Related Data Home Medications Medication Instructions Recorded Confirmed Ergocalciferol [Vitamin D2 50,000 unit PO TU 03/01/18 11/09/19 (DRISDOL)] DULoxetine HCL [Cymbalta] 60 mg PO HS 11/09/19 11/09/19 cloNIDine HCL [Catapres] 0.1 mg PO DAILY 11/09/19 11/09/19 Previous Rx's Medication Instructions Recorded Acetaminophen Tab [Tylenol] 325 mg PO Q6HR PRN #30 tab 10/20/19 Losartan Potassium 50 mg PO DAILY #30 10/20/19 Omeprazole 40 mg PO DAILY #30 cap 10/20/19 Rosuvastatin [Crestor] 10 mg PO HS #30 tab 10/20/19 levETIRAcetam [Keppra] 500 mg PO BID #60 tab 10/20/19 Allergies Allergy/AdvReac Type Severity Reaction Status Date / Time nitrofurantoin AdvReac Abdominal Verified 11/09/19 14:37 [From Macrobid] Pain/Nausea/Vomiting NSAIDS (Non-Steroidal AdvReac Nausea & Verified 11/09/19 14:37 Anti-Inflamma Vomiting Review of Systems ROS Statement: Those systems with pertinent positive or pertinent negative responses have been documented in the HPI. ROS Other: All systems not noted in ROS Statement are negative. Past Medical History Past Medical History: Asthma, Fibromyalgia, Hyperlipidemia, Hypertension, Memory Impairment, Musculoskeletal Disorder, Osteoarthritis (OA), Seizure Disorder Additional Past Medical History / Comment(s): BACK PAIN, SHORT TERM MEMORY LOSS, history of lumbar spine surgery 2 at outside institutions. History of multiple treatments and procedures with interventional pain management chronically. She is on chronic high-dose oral pain medications including morphine and Percocet. with pain management. History of Any Multi-Drug Resistant Organisms: None Reported Past Surgical History: Adenoidectomy, Back Surgery, Breast Surgery, Joint Replacement, Orthopedic Surgery, Tonsillectomy Additional Past Surgical History / Comment(s): , LT HAND SURGERY, RT GANGLION CYST REMOVED, LEEP, COLONOSCOPY, EGD, MIGUEL A. CATARACT WITH LENS IMLANTS,RT BREAST BIOPSY, 2 BACK SURGERIES- ONE WAS A LAMINECTOMY, TOTAL LEFT KNEE Past Anesthesia/Blood Transfusion Reactions: No Reported Reaction Past Psychological History: No Psychological Hx Reported Past Alcohol Use History: None Reported Past Drug Use History: None Reported - Past Family History Brother(s) Family Medical History: Cancer Additional Family Medical History / Comment(s): PANCREATITIS Mother Family Medical History: Hypertension, Memory Impairment Additional Family Medical History / Comment(s): ALZHEIMER'S Father Family Medical History: Coronary Artery Disease (CAD) Additional Family Medical History / Comment(s): HEART PROBLEMS-HAD QUAD- CABG, ALCOHOLISM General Exam - General Exam Comments Initial Comments: Mild right wrist deformity, patient's able to move fingers without difficulty good pulses General appearance: alert, in no apparent distress Head exam: Present: atraumatic, normocephalic, normal inspection Eye exam: Present: normal appearance, PERRL, EOMI. Absent: scleral icterus, conjunctival injection, periorbital swelling ENT exam: Present: normal exam, mucous membranes moist Neck exam: Present: normal inspection. Absent: tenderness, meningismus, lymphadenopathy Respiratory exam: Present: normal lung sounds bilaterally. Absent: respiratory distress, wheezes, rales, rhonchi, stridor Cardiovascular Exam: Present: regular rate, normal rhythm, normal heart sounds. Absent: systolic murmur, diastolic murmur, rubs, gallop, clicks GI/Abdominal exam: Present: soft, normal bowel sounds. Absent: distended, tenderness, guarding, rebound, rigid Extremities exam: Present: normal inspection, full ROM, normal capillary refill. Absent: tenderness, pedal edema, joint swelling, calf tenderness Back exam: Present: normal inspection Neurological exam: Present: alert, oriented X3, CN II-XII intact Psychiatric exam: Present: normal affect, normal mood Skin exam: Present: warm, dry, intact, normal color. Absent: rash Course Vital Signs 01/01/21 03:07 Temperature 97.6 F Pulse Rate 66 Respiratory 18 Rate Blood Pressure 138/86 O2 Sat by Pulse 100 Oximetry - Reevaluation(s) Reevaluation #1: Medical record is reviewed Patient does have mild improvement here in the emergency department Patient informed of results questions answered Patient's pain is controlled with splint and pain management Procedures - Orthopedic Splinting/Casting Injury #1 Side: right Upper Extremity Injury Location: wrist Upper Extremity Immobilizer: volar splint Medical Decision Making - Medical Decision Making 65 female DF for evaluation patient presents today for evaluation regards to fall with wrist pain positive intoxication. Patient has severe right wrist pain. Fall positive fracture, fracture splinted and patient can be discharged - Radiology Data Radiology results: report reviewed (X-ray right wrist positive for fracture), image reviewed Disposition Clinical Impression: Right wrist fracture, Fall Disposition: HOME SELF-CARE Condition: Good Instructions (If sedation given, give patient instructions): Wrist Fracture in Adults (ED) Is patient prescribed a controlled substance at d/c from ED?: No Referrals: Love Sanders DO [Doctor of Osteopathic Medicine] - 1-2 days
[2021-01-01 03:10] VITALS: BP 138/86; PULSE 66; RESP 18; TEMP 97.6
--- NOTE | 2021-01-01 03:27 | XR ---
EXAM: XR Right Wrist Complete, 3 or More Views CLINICAL HISTORY: ITS.REASON XR Reason: pain TECHNIQUE: Frontal, lateral and oblique views of the right wrist. COMPARISON: No relevant prior studies available. IMPRESSION: Comminuted fracture of the distal radius with intra-articular component. Displaced ulnar styloid fracture.
== END 2021-01-01 04:10 | disposition home or self-care (01) ==
LOC: EC 02:59
DX: S62.101A Fracture of unspecified carpal bone, right wrist, initial encounter for closed fracture (principal); F10.129 Alcohol abuse with intoxication, unspecified; Y90.9 Presence of alcohol in blood, level not specified; Z79.899 Other long term (current) drug therapy; I10 Essential (primary) hypertension; M79.7 Fibromyalgia; Z88.1 Allergy status to other antibiotic agents; Z88.6 Allergy status to analgesic agent; W01.0XXA Fall on same level from slipping, tripping and stumbling without subsequent striking against object, initial encounter; Y92.009 Unspecified place in unspecified non-institutional (private) residence as the place of occurrence of the external cause
CPT/HCPCS: 29125; 99284

== ENCOUNTER → 2021-02-12 | Outpatient (CLI) | payer MEDICARE, OTHER ==
--- NOTE | 2021-02-12 13:43 | XR ---
EXAMINATION TYPE: XR wrist complete RT DATE OF EXAM: 02/12/2021 CLINICAL HISTORY: pain TECHNIQUE: Frontal, lateral and oblique images of the right wrist are obtained. COMPARISON: 01/01/2021 FINDINGS: Fixation plate and screws traverse previously noted distal radial fracture. There is continued soft t issue swelling. Callus formation is seen. MR styloid component continues to be visible with minimal c allus formation seen at this time. No acute fractures are evident. IMPRESSION: As above
== END | disposition home or self-care (01) ==
LOC: RADXRMAIN 13:15
PROVIDERS: ATTEND Internal Medicine
DX: S52.501D Unspecified fracture of the lower end of right radius, subsequent encounter for closed fracture with routine healing (principal)

== ENCOUNTER → 2021-08-14 | Outpatient (CLI) | payer MEDICARE, OTHER ==
[2021-08-14 10:14] VITALS: BP 137/71; PULSE 98; RESP 18; TEMP 97.4
--- NOTE | 2021-08-14 10:43 | P.PAINCN ---
History of Present Illness - Reason for Consult Consult date: 08/14/21 - History of Present Illness This is 66 years old female with a chronic history of severe low back pain patient diagnosed with postlaminectomy pain syndrome, and patient had recent fall which led to her head injury and she patient was evaluated by neurosurgery, patient continued to have generalized pain but she reported that most of her pain is in the low back area with radiation to the lower extremity bilaterally it's constant, associated with some numbness and tingling sensation, patient had no weakness in the lower extremity but she uses a walker to ambulate, she continued to use pain medication [place] 10/325 when necessary every 6 hours and she continues to use Neurontin 300 mg 3 times a day, she denies any side effect of the medication and she reported that she needed medication refills from her primary care, she done physical therapy on multiple occasions without any benefit, and she continued to do her home exercise and she continued to have severe pain Past Medical History Past Medical History: Asthma, Fibromyalgia, Hyperlipidemia, Hypertension, Memory Impairment, Musculoskeletal Disorder, Osteoarthritis (OA), Seizure Disorder Additional Past Medical History / Comment(s): BACK PAIN, SHORT TERM MEMORY LOSS, history of lumbar spine surgery 2 at outside institutions. History of multiple treatments and procedures with interventional pain management chronically. She is on chronic high-dose oral pain medications including morphine and Percocet. with pain management. History of Any Multi-Drug Resistant Organisms: None Reported Past Surgical History: Adenoidectomy, Back Surgery, Breast Surgery, Joint Replacement, Orthopedic Surgery, Tonsillectomy Additional Past Surgical History / Comment(s): , LT HAND SURGERY, RT GANGLION CYST REMOVED, LEEP, COLONOSCOPY, EGD, MIGUEL A. CATARACT WITH LENS IMLANTS,RT BREAST BIOPSY, 2 BACK SURGERIES- ONE WAS A LAMINECTOMY, TOTAL LEFT KNEE Past Anesthesia/Blood Transfusion Reactions: No Reported Reaction Smoking Status: Current every day smoker - Past Family History Brother(s) Family Medical History: Cancer Additional Family Medical History / Comment(s): PANCREATITIS Mother Family Medical History: Hypertension, Memory Impairment Additional Family Medical History / Comment(s): ALZHEIMER'S Father Family Medical History: Coronary Artery Disease (CAD) Additional Family Medical History / Comment(s): HEART PROBLEMS-HAD QUAD- CABG, ALCOHOLISM Medications and Allergies Home Medications Medication Instructions Recorded Confirmed Type Ergocalciferol [Vitamin D2 50,000 unit PO TU 03/01/18 08/14/21 History (DRISDOL)] Acetaminophen Tab [Tylenol] 325 mg PO Q6HR PRN #30 tab 10/20/19 08/14/21 Rx Losartan Potassium 50 mg PO DAILY #30 10/20/19 08/14/21 Rx Omeprazole 40 mg PO DAILY #30 cap 10/20/19 08/14/21 Rx Rosuvastatin [Crestor] 10 mg PO HS #30 tab 10/20/19 08/14/21 Rx levETIRAcetam [Keppra] 500 mg PO BID #60 tab 10/20/19 08/14/21 Rx Cetirizine HCl [Zyrtec] 10 mg PO DAILY PRN 08/14/21 08/14/21 History DULoxetine HCL [Cymbalta] 60 mg PO DAILY 08/14/21 08/14/21 History Gabapentin [Neurontin] 300 mg PO TID 08/14/21 08/14/21 History HYDROcodone/APAP 10-325MG [[place] 1 tab PO Q8HR PRN 08/14/21 08/14/21 History 10-325] Allergies Allergy/AdvReac Type Severity Reaction Status Date / Time nitrofurantoin AdvReac Abdominal Verified 08/13/21 10:24 [From Macrobid] Pain/Nausea/Vomiting NSAIDS (Non-Steroidal AdvReac Nausea & Verified 08/13/21 10:24 Anti-Inflamma Vomiting Physical Exam Vitals: Vital Signs Temp Pulse Resp BP Pulse Ox 08/14/21 10:06 97.4 F L 98 18 137/71 94 L Physical Examinations : -Constitutiona : Cooperative , not in acute distress . -HEENT : nech : supple , no Lymphadenopathy , normal thyroid size . : eyes : no ptosis , no icterus, no photophobia . - neurologic : Cranial nerve II to XII intact , no focal neurological deffecit . -psychatric : alert , oriented X 3 , appropriate affect , intact judgment and insight . -Lymphatic : no Lymphadenopathy . - musculoskeltal : Lumber spine moter stegnth lower extremities ,thigh and legs 5/5 Right side , 5/5 Left side deep tendon reflexes : normal Knee Jerk , normal ankle Jerk lumber facet Loading Test =positive Right , positive Left Range of motion of the lumbar spine Flexion 30 degrees, extension 10 degrees strait leg raising test = positive at degree Fabere test= positive Right , and positive LT . Sever tenderness over the Sacroiliac joint on the Right , and Left sides Gaenslen test= positive right ,and positive left . Seated flexion test= positive right ,and positive Left . Distraction test= positive bilaterally Sacroiliac compression test= positive bilaterally Results Comments: Computed tomography scan of the brain without contrast reviewed. MRIof the lumbar spine neuroforamina narrowing at L1-2, L2-3 and there is postoperative changes at L4 5 and L5-S1, facet joint hypertrophy at L3 4 Assessment and Plan Plan: Assessment and plan=1-failed back surgery syndrome and lumbar area 2-lumbar foraminal stenosis. 3-lumbar spondylosis with lumbar facet arthropathy. 4-Bilateral sacroiliitis. Patient could benefit from caudal epidural steroid injection with Lysis of epidural adhesions She would continue her current medication Grafton and Neurontin as prescribed by her primary care, She denies any side effect of the medication Time with Patient: Greater than 30 PQRS Measure Charge Sheet Measure #130: Documentation of Current Meds in Medical Chart: Patient's medications documented in chart Measure #226: Tobacco Use: Screen & Cessation Intervention: Pt not a tobacco user Measure #111: Pneumonia Vaccination: Pneumococcal vaccine administered or previously received Measure #47: Advance Care Plan: Advance care planning discussed & documented, pt chose/unable to give Measure #412: Opioid Treatment Agreement: No documentation of signed opioid treatment agreement Measure #408: Opioid Therapy Follow-up Evaluation: Patient had NO f/u eval minimum every 3 months during opioid therapy Measure #317: Preventitive Care & Scrn High Bld Press & F/U: Normal blood pressure, f/u not required Measure #128: Body Mass Index (BMI) Screening & Follow-up: BMI documented ABOVE normal parameters - f/u documented Measure #131: Pain Assessment & Follow-up: Pain positive & plan documented, Follow-up scheduled Measure #431: Unhealthy Alcohol Use Preventative Care & Scrn: Patient not identified as an unhealthy alcohol user Mode of Arrival: Walker - Pain Location Back Non-Pharmacological Interventions: Heat, Inactivity, Physical Therapy, Position/Reposition, Sitting Pharmacological Interventions: Epidural, Medication, PRN Medication PQRS Narrative: Smoking Status Current some day smoker Narcotic Agreement Date Signed 11/21/12 Blood Pressure 137/71 Pain Intensity [Back] 6 Scale Used Numeric (1 - 10) Hx Alcohol Use (MH) No Home Medications: Ambulatory Orders Ergocalciferol [Vitamin D2 (DRISDOL)] 50,000 unit PO TU 03/01/18 Acetaminophen Tab [Tylenol] 325 mg PO Q6HR PRN #30 tab 10/20/19 Losartan Potassium 50 mg PO DAILY #30 10/20/19 Omeprazole 40 mg PO DAILY #30 cap 10/20/19 Rosuvastatin [Crestor] 10 mg PO HS #30 tab 10/20/19 levETIRAcetam [Keppra] 500 mg PO BID #60 tab 10/20/19 Cetirizine HCl [Zyrtec] 10 mg PO DAILY PRN 08/14/21 DULoxetine HCL [Cymbalta] 60 mg PO DAILY 08/14/21 Gabapentin [Neurontin] 300 mg PO TID 08/14/21 HYDROcodone/APAP 10-325MG [[place] 10-325] 1 tab PO Q8HR PRN 08/14/21
== END | disposition home or self-care (01) ==
LOC: PNWHC3 09:55
PROVIDERS: ATTEND Specialist
DX: M48.061 Spinal stenosis, lumbar region without neurogenic claudication (principal); M47.896 Other spondylosis, lumbar region; M46.1 Sacroiliitis, not elsewhere classified
CPT/HCPCS: 99211

== ENCOUNTER 2021-10-16 10:20 | Inpatient (IN) | payer MEDICARE, OTHER ==
[2021-10-16] MEDS ORDERED: HYDROmorphone 1 MG/ML 1 ML SYRINGE IM STA (10:53)
--- NOTE | 2021-10-16 11:34 | XR ---
EXAMINATION TYPE: XR Hip LT and AP Pelvis DATE OF EXAM: 10/16/2021 CLINICAL HISTORY: pain TECHNIQUE: AP and frogleg views of the left hip are obtained. Single view of the pelvis is also subm itted. COMPARISON: None. FINDINGS: There is a virtually nondisplaced fracture of the inferior pubic ramus on the left. No syeda tional acute fracture seen with certainty this time. Well-corticated ossific density adjacent to the greater trochanter may reflect remote avulsion fracture. Additional possibility is heterotopic ossifi cation. The joint space appears mildly narrowed. The overlying soft tissue appears unremarkable. IMPRESSION: 1. There is a virtually nondisplaced fracture of the inferior pubic ramus on the left.
--- NOTE | 2021-10-16 12:23 | ED ---
General Adult HPI - General Chief complaint: Extremity Injury, Lower Stated complaint: fall with hip pain Time Seen by Provider: 10/16/21 10:39 Source: patient, EMS, RN notes reviewed Mode of arrival: EMS Limitations: no limitations - History of Present Illness Initial comments: 66-year-old female presented from chief complaint of fall 2 weeks ago. Patient states that she's been having increasing pain last couple days. She is unable tolerate living at home this time patient states she is here for placement. Patient denies any head injury no loss conscious. Patient offers no other complaints. - Related Data Home Medications Medication Instructions Recorded Confirmed Ergocalciferol [Vitamin D2 50,000 unit PO TU 03/01/18 09/17/21 (DRISDOL)] Cetirizine HCl [Zyrtec] 10 mg PO DAILY PRN 08/14/21 09/17/21 DULoxetine HCL [Cymbalta] 60 mg PO DAILY 08/14/21 09/17/21 Gabapentin [Neurontin] 300 mg PO TID 08/14/21 09/17/21 HYDROcodone/APAP 10-325MG [[place] 1 tab PO Q8HR PRN 08/14/21 09/17/21 10-325] Albuterol Sulfate [Proair 1 puff INHALATION Q6H PRN 09/17/21 09/17/21 Digihaler] Losartan Potassium 100 mg PO DAILY 09/17/21 09/17/21 traZODone HCL [Desyrel] 100 mg PO HS 09/17/21 09/17/21 Previous Rx's Medication Instructions Recorded Acetaminophen Tab [Tylenol] 325 mg PO Q6HR PRN #30 tab 10/20/19 Omeprazole 40 mg PO DAILY #30 cap 10/20/19 Rosuvastatin [Crestor] 10 mg PO HS #30 tab 10/20/19 levETIRAcetam [Keppra] 500 mg PO BID #60 tab 10/20/19 Allergies Allergy/AdvReac Type Severity Reaction Status Date / Time nitrofurantoin AdvReac Abdominal Verified 10/16/21 10:24 [From Macrobid] Pain/Nausea/Vomiting NSAIDS (Non-Steroidal AdvReac Nausea & Verified 10/16/21 10:24 Anti-Inflamma Vomiting Review of Systems ROS Statement: Those systems with pertinent positive or pertinent negative responses have been documented in the HPI. ROS Other: All systems not noted in ROS Statement are negative. Past Medical History Past Medical History: Asthma, CVA/TIA, Fibromyalgia, Hyperlipidemia, Hypertension, Memory Impairment, Musculoskeletal Disorder, Osteoarthritis (OA), Seizure Disorder Additional Past Medical History / Comment(s): BACK PAIN, SHORT TERM MEMORY LOSS, history of lumbar spine surgery, TIA'S History of Any Multi-Drug Resistant Organisms: None Reported Past Surgical History: Adenoidectomy, Back Surgery, Breast Surgery, Joint Replacement, Orthopedic Surgery, Tonsillectomy Additional Past Surgical History / Comment(s): , LT HAND SURGERY,- WLEFT AND RIGHT WRIST SURGERY, RT GANGLION CYST REMOVED, LEEP, COLONOSCOPY, EGD, MIGUEL A. CATARACT WITH LENS IMLANTS,RT BREAST BIOPSY, 2 BACK SURGERIES- ONE WAS A LAMINECTOMY, TOTAL LEFT KNEE, PAIN INJECTION FOR BACK , TOTAL LEFT HIP SURGERY Past Anesthesia/Blood Transfusion Reactions: No Reported Reaction Past Psychological History: No Psychological Hx Reported Smoking Status: Current every day smoker Past Alcohol Use History: Occasional Past Drug Use History: None Reported - Past Family History Brother(s) Family Medical History: Cancer Additional Family Medical History / Comment(s): PANCREATITIS Mother Family Medical History: CVA/TIA, Hypertension, Memory Impairment Additional Family Medical History / Comment(s): ALZHEIMER'S Father Family Medical History: Coronary Artery Disease (CAD) Additional Family Medical History / Comment(s): HEART PROBLEMS-HAD QUAD- CABG, ALCOHOLISM General Exam Limitations: no limitations General appearance: alert, in no apparent distress Head exam: Present: atraumatic, normocephalic, normal inspection ENT exam: Present: normal exam, mucous membranes moist Neck exam: Present: normal inspection. Absent: tenderness, meningismus, lymphadenopathy Respiratory exam: Present: normal lung sounds bilaterally. Absent: respiratory distress, wheezes, rales, rhonchi, stridor Cardiovascular Exam: Present: regular rate, normal rhythm, normal heart sounds. Absent: systolic murmur, diastolic murmur, rubs, gallop, clicks GI/Abdominal exam: Present: soft, normal bowel sounds. Absent: distended, tenderness, guarding, rebound, rigid Extremities exam: Present: other (left pain tenderness) Back exam: Present: full ROM. Absent: tenderness Neurological exam: Present: alert, reflexes normal. Absent: motor sensory deficit Skin exam: Present: warm, dry, intact, normal color. Absent: rash Course Vital Signs 10/16/21 10:24 Temperature 97.9 F Pulse Rate 81 Respiratory 18 Rate Blood Pressure 148/96 O2 Sat by Pulse 97 Oximetry Medical Decision Making - Medical Decision Making Patient has inferior pubic rami fracture. I did recommend the patient go home as this a nonsurgical fracture. Patient states she called her PCPs office for placement. She is unable to go home. Patient be admitted for residential placement she has not been admitted for acute fracture. Disposition Clinical Impression: Fracture of left inferior pubic ramus, Failure to thrive Disposition: ADMITTED IP TO THIS HOSP Condition: Fair Referrals: Yanni Max MD [Primary Care Provider] - 1-2 days
[2021-10-16] MEDS ORDERED: ONDANSETRON 4 MG/2 ML VIAL IVP PRN (13:03)
[2021-10-16] MEDS ORDERED: HYDROcodone/APAP 5-325MG 1 EACH TAB PO PRN (13:03)
[2021-10-16] MEDS ORDERED: NALOXONE 0.4 MG/ML 1 ML VIAL IV PRN (13:03)
[2021-10-16] MEDS ORDERED: GABAPENTIN 300 MG CAP PO PRN (13:04)
[2021-10-16] MEDS ORDERED: LORATADINE 10 MG TAB PO PRN (13:04)
[2021-10-16] MEDS ORDERED: ALBUTEROL NEBULIZED 2.5 MG/3 ML INHALATION PRN (13:04)
[2021-10-16] MEDS ORDERED: traZODone HCL 100 MG TAB PO PRN (13:04)
[2021-10-16 13:17] LABS: Basophils % (A) 0 %; Eosinophils # (A) 0.2 k/uL (0-0.7); Eosinophils % (A) 3 %; HCT 42.5 % (34.0-46.0); HGB 13.8 gm/dL (11.4-16.0); Lymphocytes % (A) 28 %; MCHC 32.5 g/dL (31.0-37.0); MCV 92.2 fL (80.0-100.0); Mean Platelet Volume 9.3; Monocytes # (A) 0.5 k/uL (0-1.0); Monocytes % (A) 6 %; Neutrophils # (A) 4.4 k/uL (1.3-7.7); Neutrophils % (A) 61 %; Platelet Count 270 k/uL (150-450); RBC 4.61 m/uL (3.80-5.40); RDW 14.4 % (11.5-15.5); WBC 7.2 k/uL (3.8-10.6)
[2021-10-16] MEDS: HYDROmorphone 0.5 MG/0.5 ML SYRINGE IVP PRN ×3 (13:45→20:32)
[2021-10-16 13:47] LABS: Albumin 3.9 g/dL (3.5-5.0); Carbon Dioxide 28 mmol/L (22-30); Glucose 89 mg/dL (74-99); Potassium 4.2 mmol/L (3.5-5.1); Sodium 138 mmol/L (137-145); Total Protein 6.4 g/dL (6.3-8.2)
[2021-10-16 13:48] LABS: ALT 16 U/L (4-34); AST 25 U/L (14-36); African American GFR (CKD) >90 (>60 ml/min/1.73 sqM); Alkaline Phosphatase 86 U/L (38-126); Blood Urea Nitrogen 10 mg/dL (7-17); Calcium 9.2 mg/dL (8.4-10.2); Non-African American GFR(CKD) >90 (>60 ml/min/1.73 sqM); Total Bilirubin 0.7 mg/dL (0.2-1.3)
[2021-10-16 14:03] LABS: Anion Gap 5 mmol/L; Chloride 105 mmol/L (98-107)
--- NOTE | 2021-10-16 17:55 | P.HPIM ---
History of Present Illness H&P Date: 10/16/21 Chief Complaint: Left hip and leg pain HISTORY OF PRESENT ILLNESS: This is a 66-year-old female one of my patient with a previous medical history significant for hypertension and hypertensive cardiovascular disease, hyperlipidemia, GERD, seizure disorder, ALLERGIC rhinitis, vitamin D deficiency, osteoporosis with multiple fractures, depressive disorder with psychotic features, patient presented to the emergency department at [facility] after she had called my office today with increased pain in the left groin area and left leg and she stated that she is in a lot of pain not able to place any pressure on the right leg, she had fallen about a week and a half ago and landed on her side she ended up with left pubic rami fracture was nondisplaced however the patient was managing okay with the pain medication as well as a muscle relaxer however today the pain got out of control so EMS was called and the patient was taken to the ER for evaluation her x-ray did confirm left pubic rami fracture and because habitus to move and participate in activities of daily living and because of the risk of increased fractures she was admitted to the hospital for evaluation by orthopedic surgery and physical therapy and the plan is to take the patient to subacute rehabilitation as the patient is not able to put any pressure on her left leg. REVIEW OF SYSTEMS: Constitutional: No documented fever, no chills, no night sweats. No weight change. No weakness, fatigue or lethargy. No daytime sleepiness. HEENT: No headache. No blurred vision or double vision, no loss of vision. No loss of Hearing, no ringing in the ears, no dizziness. No nasal drainage or congestion. No epistaxis. No sore throat. Lungs: No shortness of breath, no cough, no sputum production. No wheezing. Reports dyspnea with activity. Cardiovascular: No chest pain, no lower extremity edema. No palpitations. No paroxysmal nocturnal dyspnea. No orthopnea. No lightheadedness or dizziness. No syncopal episodes. Abdominal: Reports abdominal pain. No nausea, vomiting. No diarrhea. No constipation. No bloody or tarry stools reports loss of appetite. Genitourinary: No dysuria, increased frequency, urgency. No urinary retention. Musculoskeletal: No myalgias. No muscle weakness, positive for gait dysfunction, positive for frequent falls. positive for back pain and neck pain. Integumentary: No wounds, no lesions. No rash or pruritus. No unusual bruising. No change in hair or nails. Neurologic: No aphasia. No facial droop. No change in mentation. No head injury. No headache. No paralysis. No paresthesia. Psychiatric: positive for depression. No anxiety. No mood swings. Endocrine: No abnormal blood sugars. No weight change. PAST MEDICAL HISTORY: Hypertension and hypertensive cardiovascular disease Hyperlipidemia. GERD. Seizure. Osteoporosis. Vitamin D deficiency. ALLERGIC rhinitis. Recurrent falls . Depressive disorder with psychotic feature PAST SURGICAL HISTORY: 2 back surgery. Left knee replacement. Right hip replacement. SOCIAL HISTORY: Patient smokes about a pack every day she continues to smoke despite multiple attempts to quit smoking, she is not ready to quit smoking, she denies any alcohol ingestion, no drug abuse. She lives alone and she has a walker and she has a caregiver that check on her once in a while. FAMILY HISTORY: Father at age of 69 from stroke and had history of hypertension, mother at the age of 71 from dementia, stroke, and hypertension, patient had 2 brothers one of them from pancreatic cancer and overdose. PHYSICAL EXAMINATION: General: 66-year-old female laying down in bed in mild distress HEENT: Head is atraumatic, normocephalic, pupils were equal round reactive to light and recommendation, extraocular muscle movement were intact, sclera nonicteric, conjunctivae were pale, mucous membranes of the mouth are somewhat dry. Neck: Supple, no JVP, normal carotid upstroke bilaterally, no lymphadenopathy. Chest: Decreased breath sounds at the bases, few rhonchi, minimal expiratory wheezes, no chest wall tenderness, no intercostal retractions. Heart: First heart sound is normal, second heart sounds normal there is systolic ejection murmur 2/6 located in the left sternal border. Abdomen: Soft, nontender, nondistended, positive bowel sounds. Extremities: There is no edema no calf tenderness DP +2 bilaterally. Neurologic examination: Patient is awake alert and oriented X 3, cranial nerves II-12 appear grossly intact, muscle power were 5 out of 5 in upper extremities and 5 out of 5 in bilateral lower extremities, deep tendon reflexes normal bilaterally. ASSESSMENT AND PLAN: 1. Left nondisplaced pubic ramus fracture. Continue patient on current pain management, physical therapy evaluation, social media community manager consultation for subacute rehabilitation. Orthopedic consultation appreciated. 2. Hypertension and hypertensive cardiovascular disease. Continue losartan 100 mg orally once every day monitor blood pressure very closely. 3. Hyperlipidemia. Continue rosuvastatin 10 mg orally once every day, monitor lipid panel, keep LDL 55-70. 4. GERD. Continue PPI. 5. Depressive disorder with psychotic feature. Continue duloxetine 60 minute gram orally twice every day as well as Abilify 2 mg orally once every day. 6. Vitamin D deficiency. Continue vitamin D supplement once every week. 7. ALLERGIC rhinitis. Continue patient on Zyrtec 10 mg orally once every day. 8. DVT prophylaxis. Heparin 5000 units subcutaneously every 8 hours . 9. GI prophylaxis. Continue PPI. 10. Admitted to inpatient. Estimated length of stay 2 midnights. 11. Full code. 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 Patient states has had multiple falls and fractures. History of Any Multi-Drug Resistant Organisms: None Reported Past Surgical History: Adenoidectomy, Back Surgery, Breast Surgery, Joint Rep lacement, Orthopedic Surgery, Tonsillectomy Additional Past Surgical History / Comment(s): , LT HAND SURGERY,- WLEFT AND RIGHT WRIST SURGERY, RT GANGLION CYST REMOVED, LEEP, COLONOSCOPY, EGD, MIGUEL A. CATARACT WITH LENS IMLANTS,RT BREAST BIOPSY, 2 BACK SURGERIES- ONE WAS A LAMI NECTOMY, TOTAL LEFT KNEE, PAIN INJECTION FOR BACK , TOTAL LEFT HIP SURGERY Past Anesthesia/Blood Transfusion Reactions: No Reported Reaction Smoking Status: Current every day smoker - Past Family History Brother(s) Family Medical History: Cancer Additional Family Medical History / Comment(s): PANCREATITIS Mother Family Medical History: CVA/TIA, Hypertension, Memory Impairment Additional Family Medical History / Comment(s): of Alzheimer's at age 70 Father Family Medical History: Coronary Artery Disease (CAD), CVA/TIA, Diabetes Mellitus, Hypertension Additional Family Medical History / Comment(s): at age 68 Medications and Allergies Home Medications Medication Instructions Recorded Confirmed Type Ergocalciferol [Vitamin D2 50,000 unit PO Q7D 03/01/18 10/16/21 History (JOSE FRANCISCO)] Rosuvastatin [Crestor] 10 mg PO HS #30 tab 10/20/19 10/16/21 Rx levETIRAcetam [Keppra] 500 mg PO BID #60 tab 10/20/19 10/16/21 Rx Cetirizine HCl [Zyrtec] 10 mg PO DAILY PRN 08/14/21 10/16/21 History DULoxetine HCL [Cymbalta] 60 mg PO DAILY 08/14/21 10/16/21 History Gabapentin [Neurontin] 300 mg PO TID PRN 08/14/21 10/16/21 History HYDROcodone/APAP 10-325MG [[place] 1 tab PO TID 08/14/21 10/16/21 History 10-325] traZODone HCL [Desyrel] 100 mg PO HS PRN 09/17/21 10/16/21 History ARIPiprazole [Abilify] 2 mg PO DAILY 10/16/21 10/16/21 History Albuterol Inhaler [Ventolin Hfa 2 puff INHALATION RT-QID PRN 10/16/21 10/16/21 History Inhaler] Losartan Potassium [Cozaar] 100 mg PO DAILY 10/16/21 10/16/21 History Omeprazole 40 mg PO AC-BRKFST 10/16/21 10/16/21 History Allergies Allergy/AdvReac Type Severity Reaction Status Date / Time nitrofurantoin AdvReac Abdominal Verified 10/16/21 12:25 [From Macrobid] Pain/Nausea/Vomiting NSAIDS (Non-Steroidal AdvReac Nausea & Verified 10/16/21 12:25 Anti-Inflamma Vomiting Physical Exam Vitals: Vital Signs Temp Pulse Pulse Resp BP BP Pulse Ox 10/16/21 15:00 98.2 F 80 15 143/85 97 10/16/21 14:32 89 14 147/89 99 10/16/21 10:24 97.9 F 81 18 148/96 97 Intake and Output 10/16/21 10/16/21 10/16/21 06:59 14:59 22:59 Other: Weight 80.739 kg Results CBC & Chem 7: 10/16/21 12:59 10/16/21 12:59 Thrombosis Risk Factor Assmnt - Choose All That Apply Each Risk Factor Represents 2 Points: Age 61-74 years Each Risk Factor Represents 5 Points: Hip, pelvis, or leg fracture (< 1 month) Thrombosis Risk Factor Assessment Total Risk Factor Score: 7 Thrombosis Risk Factor Assessment Level: High Risk
--- NOTE | 2021-10-16 18:43 | P.CNOR ---
History of Present Illness - [facility] Consult date: 10/16/21 Consult reason: fracture History of present illness: Patient is a 66-year-old female who was admitted to [facility] with regards to difficulty ambulating and significant pain involving the left lo wer extremity. Apparently the patient had a fall a few weeks ago and at that time had noticed worsening pain in her left lower extremity. She contact her primary care doctor with regards to becoming more difficult to ambulate and take care of herself and also the pain. Patient then reported to the hospital for further evaluation. Upon arrival to the hospital, imaging and lab tests were done. Images did demonstrate a fracture involving the inferior pubic rami on the left side. Due to the pain and her inability to ambulate, patient was admitted under internal medicine with our orthopedic team on consult. Patient was evaluated today at bedside, she was resting in her hospital bed. She was in obvious distress complaining of discomfort of the left lower extremity. It was difficult to o btain a accurate review of systems and history of present illness, patient was very sporadic when answering questions and providing a timeframe. After reviewing the chart, she's had multiple hospital admissions for many medical problems. Of these problems, she's had multiple falls and fractures. The most recent surgery on able to review and are hospital system as a right hip hemiarthroplasty that was done by one of the doctors [facility] [place]. The AP pelvis x-ray did demonstrate stable components. She also was noted to have a right wrist fracture in December 2020, she states she did have surgery on this wrist by a orthopedic surgeon at a [place] facility. Patient h as a history of a left total knee replacement, she said this was done by Dr. Lewis many years ago. She also has a history of a lumbar fusion, x-rays demonstrate likely L5-S1. I was unfamiliar with the surgeon that she provided, the surgery was not done in [place]. This was also done many years ago. When also reviewing her chart, patient has been seeing the painter ordnance at our hospital for quite some time. She states that she was actually scheduled to see Dr. Gee last month, but had to cancel that appointment. Patient also basically spoke about a spinal stimulator trial that she went through, she states that a permanent machine was not placed and fears that since that hardware was initially placed it is cause multiple problems. Patient states that she always has pain in the bilateral lower extremities, her left being worse than her right. She states that she's been dealing with a lot of muscle spasms since December. She also states over the last week or 2 she's noticed more shooting pain in that left lower extremity, also complaining of numbness and tingling in the left foot. Patient denies any acute symptoms of the bilateral upper extremities, this to include numbness or tingling or shooting pain. During much of the exam, she demonstrated posturing of the bilateral lower extremities with significant inversion of the left foot/ankle. The left was definitely more prominent than the right. Most of the pain she states starts in the upper thigh entrance down the back of the leg into the foot and it is severe in nature. Patient states that she takes [place] at home for chronic pain, she also is on gabapentin. She does state she is on a muscle relaxer but cannot provide the name for me at this time. Patient does live alone, she is a friend that stops and occasionally checks on her. She does not drive anymore. She normally utilizes a walker when she is out and about, but she states lately she is utilizing the walker and home. 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 Patient states has had multiple falls and fractures. History of Any Multi-Drug Resistant Organisms: None Reported Past Surgical History: Adenoidectomy, Back Surgery, Breast Surgery, Joint Replacement, Orthopedic Surgery, Tonsillectomy Additional Past Surgical History / Comment(s): , LT HAND SURGERY,- WLEFT AND RIGHT WRIST SURGERY, RT GANGLION CYST REMOVED, LEEP, COLONOSCOPY, EGD, MIGUEL A. CATARACT WITH LENS IMLANTS,RT BREAST BIOPSY, 2 BACK SURGERIES- ONE WAS A LAMINECTOMY, TOTAL LEFT KNEE, PAIN INJECTION FOR BACK , TOTAL LEFT HIP SURGERY Past Anesthesia/Blood Transfusion Reactions: No Reported Reaction Smoking Status: Current every day smoker - Past Family History Brother(s) Family Medical History: Cancer Additional Family Medical History / Comment(s): PANCREATITIS Mother Family Medical History: CVA/TIA, Hypertension, Memory Impairment Additional Family Medical History / Comment(s): of Alzheimer's at age 70 Father Family Medical History: Coronary Artery Disease (CAD), CVA/TIA, Diabetes Mellitus, Hypertension Additional Family Medical History / Comment(s): at age 68 Medications and Allergies Home Medications Medication Instructions Recorded Confirmed Type Ergocalciferol [Vitamin D2 50,000 unit PO Q7D 03/01/18 10/16/21 History (DRISDOL)] Rosuvastatin [Crestor] 10 mg PO HS #30 tab 10/20/19 10/16/21 Rx levETIRAcetam [Keppra] 500 mg PO BID #60 tab 10/20/19 10/16/21 Rx Cetirizine HCl [Zyrtec] 10 mg PO DAILY PRN 08/14/21 10/16/21 History DULoxetine HCL [Cymbalta] 60 mg PO DAILY 08/14/21 10/16/21 History Gabapentin [Neurontin] 300 mg PO TID PRN 08/14/21 10/16/21 History HYDROcodone/APAP 10-325MG [[place] 1 tab PO TID 08/14/21 10/16/21 History 10-325] traZODone HCL [Desyrel] 100 mg PO HS PRN 09/17/21 10/16/21 History ARIPiprazole [Abilify] 2 mg PO DAILY 10/16/21 10/16/21 History Albuterol Inhaler [Ventolin Hfa 2 puff INHALATION RT-QID PRN 10/16/21 10/16/21 History Inhaler] Losartan Potassium [Cozaar] 100 mg PO DAILY 10/16/21 10/16/21 History Omeprazole 40 mg PO AC-BRKFST 10/16/21 10/16/21 History Allergies Allergy/AdvReac Type Severity Reaction Status Date / Time nitrofurantoin AdvReac Abdominal Verified 10/16/21 12:25 [From Macrobid] Pain/Nausea/Vomiting NSAIDS (Non-Steroidal AdvReac Nausea & Verified 10/16/21 12:25 Anti-Inflamma Vomiting Physical Examination Gen: AOx3, NAD VSS stable at this time Integument: No obvious open lesions or sores were visualized throughout the bilateral lower extremities, there is a well-healed incision on the lateral aspect of the right upper leg and over the anterior left knee. No obvious open lesions or sores are visualized throughout the cervical, thoracic or lumbar spine. A well-healed incision over the upper thoracic and lumbar regions visualized. Palpation: Patient demonstrates some mild tenderness with palpation through the midline region of both the cervical and lumbar spine, there is no pain in the thoracic area. She's nontender in the paraspinal regions. ROM: Full range of motion is appreciated in all major muscle groups of the bilateral upper extremities Range of motion was difficult to assess the lower extremities, her right lower extremity she did demonstrate good motion with hip flexion, knee flexion, knee extension. Those range of motion is very difficult to assess the left lower extremity. Due to her posturing of the lower extremities, is difficult to assess plantar flexion, dorsiflexion, EHL, FHL. She was able to demonstrate these motions, but she was very stiff on exam. Sensory Exam: [Senory exam to light touch is intact C5-T1] [Senosry exam to light touch is intact L2-S1] No obvious focal neurological deficits are appreciated, she does admit to numbness and tingling in the bilateral feet and toes, worse on the left than the right Motor: 45 strength is appreciated in the bilateral upper extremities with shoulder abduction, shoulder elevation, elbow flexion, elbow extension, wrist extension, wrist flexion, finger intrinsics Right lower extremity- 4+5 strength appreciated with hip flexion, knee extension, knee flexion, 45 strength appreciated with plantarflexion, dorsiflexion, EHL, FHL Left lower extremity- 3+-5 strength appreciated in the lower extremity with hip flexion, knee extension, knee flexion, 45 strength appreciated with plantarflexion, dorsiflexion, EHL, FHL Reflexes: Negative Long's bilaterally Babinski and clonus were difficult to assess due to the stiffness in posturing of the lower extremities Special Test: Logroll maneuver of the right lower extremity reproduces no pain, logroll maneuver the left lower extremity demonstrates pain in the posterior medial upper thigh, Results - Labs Labs: H & H 10/16/21 Range/Units 12:59 Hgb 13.8 (11.4-16.0) gm/dL Hct 42.5 (34.0-46.0) % Result Diagrams: 10/16/21 12:59 10/16/21 12:59 - Diagnostic results Hip x-ray: report reviewed, image reviewed (X-rays reviewed of the left hip and AP pelvis. Images demonstrated a obvious left inferior. Grandmother fracture with minimal displacement. Hardware is present in the lumbar spine. Hemiarthroplasty is visualized on the right hip, components appear stable and no obvious lucencies) Assessment and Plan Assessment: Left inferior pubic rami fracture Status post recent falls, history of multiple falls History of right hip hemiarthroplasty, stable appearing components History of lumbar spine surgery History of bilateral wrist fractures Multiple medical comorbidities Plan: I was able to discuss the case, including the physical exam findings and imaging studies with my attending Dr. Geronimo. At this time I am concerned that there may be some spine pathology resulting in her frequent falls and her cu rrent increase in symptoms in her left lower extremity. CT scans of the cervical, thoracic and lumbar spine will initially be done for further evaluation. Patient's labs are not revealing any acute signs or obvious signs of an infective process Consult will be placed for neurology, their recommendations are appreciated Pain management, patient home pain medications have been restarted, we'll continue with that medication. Depending on results of computed tomography scan, we will possibly adjust medications PT/OT evaluation, recommending use of walker at all times with ambulation DVT prophylaxis per primary medical service Internal medicine recommendations appreciated Further recommendations to follow Time with Patient: Less than 30
[2021-10-16] MEDS: HYDROcodone/APAP 10-325MG 1 EACH TAB PO PRN (19:40)
[2021-10-16] MEDS: levETIRAcetam 500 MG TAB PO SCH (20:31)
[2021-10-16] MEDS ORDERED: ATORVASTATIN 20 MG TAB PO SCH (21:00)
--- NOTE | 2021-10-16 21:46 | CT ---
EXAMINATION TYPE: CT cervical spine wo con DATE OF EXAM: 10/16/2021 COMPARISON: 06/19/2011 HISTORY: pain and leg wekness CT DLP: 335.1 mGycm Automated exposure control for dose reduction was used. Images obtained of the cervical spine without contrast. There is a mild cervical kyphotic curvature. There is degenerative disc space narrowing at C4-5 and C 5-6 and C6-7 with spurring of the endplates. Posterior elements are intact. There is multilevel hyper trophic facet arthropathy. Skull base is intact. There is normal aeration of the mastoid sinuses. IMPRESSION: Spondylotic changes. Mild kyphotic deformity probably due to old ligamentous injury. No fracture. Sli ght increased kyphosis compared to old exam.
--- NOTE | 2021-10-16 21:53 | CT ---
EXAMINATION TYPE: CT thor lumbar spine wo con DATE OF EXAM: 10/16/2021 COMPARISON: 10/29/2019 HISTORY: pain and leg weakness CT DLP: 1347.8 mGycm Automated exposure control for dose reduction was used. Images obtained from T1 to S1 vertebra without contrast. Thoracic and lumbar vertebra have normal alignment. There is posterior fusion surgery at L5-S1. There is no compression fracture. There is some osteopenia. There is no thoracic or lumbar paraspinal mass . There is no evidence of focal bone destruction. There is laminectomy defect at L5. There is a degen erative minimal L4-5 first-degree spondylolisthesis. There is no spondylolysis. IMPRESSION: Osteopenia. No significant thoracic or lumbar compression deformity. Degenerative mild first-degree L 4-5 spondylolisthesis. Previous surgery.
[2021-10-16] MEDS: methocarbamoL 500 MG TAB PO SCH (22:13)
[2021-10-17] MEDS: HEPARIN SODIUM,PORCINE/PF 5,000 UNIT/0.5 ML SYRINGE SQ SCH ×3 (00:34→16:05)
[2021-10-17] MEDS: HYDROmorphone 1 MG/ML 1 ML SYRINGE IVP PRN ×4 (00:34→13:00)
[2021-10-17 00:46] LABS: Appearance,Urine Clear (Clear); Bilirubin,Urine Negative (Negative); Blood,Urine Negative (Negative); Color,Urine Yellow; Glucose,Urine (UA) Negative (Negative); Ketones,Urine Negative (Negative); Leukocyte Esterase,Urine Negative (Negative); Nitrite,Urine Negative (Negative); Protein,Urine Negative (Negative); Specific Gravity,Urine 1.019 (1.001-1.035)
[2021-10-17 05:55] LABS: Basophils % (A) 1 %; Eosinophils # (A) 0.3 k/uL (0-0.7); Eosinophils % (A) 4 %; HCT 40.1 % (34.0-46.0); HGB 12.8 gm/dL (11.4-16.0); Lymphocytes # (A) 2.7 k/uL (1.0-4.8); Lymphocytes % (A) 46 %; MCH 29.9 pg (25.0-35.0); MCHC 31.9 g/dL (31.0-37.0); MCV 93.6 fL (80.0-100.0); Mean Platelet Volume 7.5; Monocytes # (A) 0.5 k/uL (0-1.0); Monocytes % (A) 8 %; Neutrophils # (A) 2.3 k/uL (1.3-7.7); Neutrophils % (A) 38 %; Platelet Count 238 k/uL (150-450); RBC 4.28 m/uL (3.80-5.40); RDW 14.5 % (11.5-15.5); WBC 5.9 k/uL (3.8-10.6)
[2021-10-17] MEDS ORDERED: PANTOPRAZOLE 40 MG TABLET PO SCH (07:30)
[2021-10-17] MEDS: levETIRAcetam 500 MG TAB PO SCH (08:51)
[2021-10-17] MEDS: methocarbamoL 500 MG TAB PO SCH ×2 (08:51→16:05)
[2021-10-17] MEDS ORDERED: DULoxetine HCL 60 MG CAPSULE.DR PO SCH (09:00)
[2021-10-17] MEDS ORDERED: LOSARTAN 50 MG TAB PO SCH (09:00)
[2021-10-17] MEDS ORDERED: ARIPiprazole 2 MG TAB PO SCH (09:00)
[2021-10-17 10:12] LABS: African American GFR (CKD) 90.3 (60.0-200.0); Albumin 3.9 g/dL (3.8-4.9); Albumin/Globulin Ratio 2.29 (1.60-3.17); Anion Gap 11.5 mmol/L (10.00-18.00); BUN/Creat Ratio 20.75 Ratio (12.00-20.00); Blood Urea Nitrogen 16.6 mg/dL (9.0-27.0); Carbon Dioxide 24.5 mmol/L (20.0-27.5); Globulin 1.7 g/dL (1.6-3.3); Non-African American GFR(CKD) 77.9 (60.0-200.0); Potassium 4.1 mmol/L (3.5-5.5); Total Bilirubin 0.2 mg/dL (0.30-1.20); Total Protein 5.6 g/dL (6.2-8.2)
--- NOTE | 2021-10-17 10:16 | P.DS ---
Providers Date of admission: 10/16/21 13:17 Attending physician: Yanni Max Consults: 10/16/21 12:18 Consult Physician Urgent Consulting Provider: Sudhakar Vences Consult Reason/Comments: Inferior pubic rami fracture Do you want consulting provider notified?: Yes 10/16/21 18:25 Consult Physician Routine Consulting Provider: Joni Donaldson Consult Reason/Comments: Left lower extremity weakness, posturing bilateral lower extremities, falls Do you want consulting provider notified?: Yes Primary care physician: Yanni Max Hospital Course: Patient is admitted for a week of [place] fracture patient is. Pain is well- controlled and the physical therapy and outpatient therapy valid the patient and that they're recommending subacute rehabitation patient will be discharged today to subacute rehab and follow-up with Dr. Max In the rehab place. For rest of medical problems and hospital physician course please refer to H&P from Dr. Max from yesterday PHYSICAL EXAMINATION: GENERAL: The patient is alert and oriented x3, not in any acute distress. Well developed, well nourished. HEENT: Pupils are round and equally reacting to light. EOMI. No scleral icterus. No conjunctival pallor. Normocephalic, atraumatic. No pharyngeal erythema. No thyromegaly. CARDIOVASCULAR: S1 and S2 present. No murmurs, rubs, or gallops. PULMONARY: Chest is clear to auscultation, no wheezing or crackles. ABDOMEN: Soft, nontender, nondistended, normoactive bowel sounds. No palpable organomegaly. MUSCULOSKELETAL: No joint swelling or deformity. EXTREMITIES: No cyanosis, clubbing, or pedal edema. NEUROLOGICAL: Gross neurological examination did not reveal any focal deficits. SKIN: No rashes. Patient Condition at Discharge: Fair Plan - Discharge Summary Discharge Rx Participant: No New Discharge Prescriptions: New methocarbamoL [Robaxin] 500 mg PO TID PRN #20 tab PRN Reason: Muscle Spasm HYDROcodone/APAP 10-325MG [[place] 10-325] 1 each PO TID PRN #20 tab PRN Reason: Pain Atorvastatin [Lipitor] 20 mg PO HS tab Continue Ergocalciferol [Vitamin D2 (DRISDOL)] 50,000 unit PO Q7D Rosuvastatin [Crestor] 10 mg PO HS #30 tab levETIRAcetam [Keppra] 500 mg PO BID #60 tab Cetirizine HCl [Zyrtec] 10 mg PO DAILY PRN PRN Reason: Allergy Symptoms Albuterol Inhaler [Ventolin Hfa Inhaler] 2 puff INHALATION RT-QID PRN PRN Reason: Shortness Of Breath Gabapentin [Neurontin] 300 mg PO TID PRN #20 cap PRN Reason: NERVE PAIN DULoxetine HCL [Cymbalta] 60 mg PO DAILY traZODone HCL [Desyrel] 100 mg PO HS PRN PRN Reason: SLEEP Losartan Potassium [Cozaar] 100 mg PO DAILY ARIPiprazole [Abilify] 2 mg PO DAILY Omeprazole 40 mg PO AC-BRKFST Discontinued HYDROcodone/APAP 10-325MG [[place] 10-325] 1 tab PO TID Discharge Medication List Ergocalciferol [Vitamin D2 (DRISDOL)] 50,000 unit PO Q7D 03/01/18 [History] Rosuvastatin [Crestor] 10 mg PO HS #30 tab 10/20/19 [Rx] levETIRAcetam [Keppra] 500 mg PO BID #60 tab 10/20/19 [Rx] Cetirizine HCl [Zyrtec] 10 mg PO DAILY PRN 08/14/21 [History] DULoxetine HCL [Cymbalta] 60 mg PO DAILY 08/14/21 [History] traZODone HCL [Desyrel] 100 mg PO HS PRN 09/17/21 [History] ARIPiprazole [Abilify] 2 mg PO DAILY 10/16/21 [History] Albuterol Inhaler [Ventolin Hfa Inhaler] 2 puff INHALATION RT-QID PRN 10/16/21 [History] Losartan Potassium [Cozaar] 100 mg PO DAILY 10/16/21 [History] Omeprazole 40 mg PO AC-BRKFST 10/16/21 [History] Atorvastatin [Lipitor] 20 mg PO HS tab 10/17/21 [Rx] Gabapentin [Neurontin] 300 mg PO TID PRN #20 cap 10/17/21 [Rx] HYDROcodone/APAP 10-325MG [[place] 10-325] 1 each PO TID PRN #20 tab 10/17/21 [Rx] methocarbamoL [Robaxin] 500 mg PO TID PRN #20 tab 10/17/21 [Rx] Follow up Appointment(s)/Referral(s): Yanni Max MD [Primary Care Provider] - 3 Days Discharge Disposition: TRANSFER TO SNF/ECF
--- NOTE | 2021-10-17 10:43 | P.CNNES ---
History of Present Illness Consult date: 10/17/21 Requesting physician: Victor Manuel Singh Reason for Consult: left lower extremity weakness, posturing b/l MILVIA, falls History of Present Illness: This is a 66-year woman with medical history of reported seizure disordered, memory impairement, hypertension, hypertensive cardiovascular disease, hyperlipidemia, vitamin D deficiency, osteoporosis with multiple fracture who presented to the [facility] on 10/16/2021 because of falls. History is obtained from medical record that. He seemed to the patient had a fall 1 1/2 weeks ago and patient is unable to tolerate living home and needs placement. She denies any head injury from the falls. Per the primary team's note who is known to the patient the patient was complaining of increased pain in the left colon and left leg and unable of place pressure on the right leg that she had a fall about is seems a week and a half ago and landed on her left side. Patient was found to have left pubic rami fracture and that was nondisplaced. Was felt the patient was posturing by the orthopedic team and neurology is consulted. Per the patient nurse no seizure activity was noticed. Patient stated she has having pain over the left groin that is radiating down the left entire leg anterior. She feels she is having cramping over the left calf region for a while. She is having repeating falls for a while and denies any LOC, urinary or bowel incontinence. Sometimes she feels her left leg jerk at home while resting for no reason while awake. She said her last seizure was about 8-10 years ago. She said she followed-up with multiple neurologist in the past and is not getting a good answer. She followed-up with neurologist prior COVID pandemic and during pandemic. She is in the process of looking into seeing a neurologist. She has chronic lower back pain and had surgeries as well has posterior neck pain. She is on Keppra 500 mg a tablet twice a day, she is on gabapentin a tablet 3 times a day when necessary. Her other medication consist of Abilify, trazodone, vitamin D2, [place], Cymbalta, Zyrtec, Crestor, losartan Some other workup in the hospital consisted of Initial vital signs: Blood pressure of 148/96, heart rate of 81, respiratory of 18, temperature of 97.9 Fahrenheit oral and pulse ox of 97% room air. CBC with differential is unremarkable Chemistry panel is unremarkable Coronavirus is not detected CT cervical spine is reported as spondylitic changes. Mild kyphotic deformity probable due to old ligamentous injury. No fracture. Slight increased kyphosis compared to old exam. CT of thoracic and lumbar spines reported as osteopenia. No significant thoracic or lumbar compression deformity. Degenerative mild first-degree L4-L5 spondylolithiasis. Previous surgery. X-ray of left hip is reported virtually nondisplaced fracture of the inferior pubic ramus on the left. Upon reviewing EMR, It seems Dr. Mercado (Neuro-Hospitalist) [place] the patient on 10/18/2019 because the headache and he felt that the patient's examination is nonfocal. In his note he said the patient has history of Acute Disseminated Encephalomyelitis (ADEM). He stated that the patient has short-term memory loss. The body of the reports that he mentioned that the the diagnosis of ADEM was 6-7 years ago (to him seeing the patient) as outpatient. Please review his note for further details. Review of Systems Review of system: The 12 point system was reviewed and apparent positive and negative per HPI. 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 Patient states has had multiple falls and fractures. History of Any Multi-Drug Resistant Organisms: None Reported Past Surgical History: Adenoidectomy, Back Surgery, Breast Surgery, Joint Replacement, Orthopedic Surgery, Tonsillectomy Additional Past Surgical History / Comment(s): , LT HAND SURGERY,- WLEFT AND RIGHT WRIST SURGERY, RT GANGLION CYST REMOVED, LEEP, COLONOSCOPY, EGD, MIGUEL A. CATARACT WITH LENS IMLANTS,RT BREAST BIOPSY, 2 BACK SURGERIES- ONE WAS A LAMINECTOMY, TOTAL LEFT KNEE, PAIN INJECTION FOR BACK , TOTAL LEFT HIP SURGERY Past Anesthesia/Blood Transfusion Reactions: No Reported Reaction Smoking Status: Current every day smoker - Past Family History Brother(s) Family Medical History: Cancer Additional Family Medical History / Comment(s): PANCREATITIS Mother Family Medical History: CVA/TIA, Hypertension, Memory Impairment Additional Family Medical History / Comment(s): of Alzheimer's at age 70 Father Family Medical History: Coronary Artery Disease (CAD), CVA/TIA, Diabetes Mellitus, Hypertension Additional Family Medical History / Comment(s): at age 68 Medications and Allergies Home Medications Medication Instructions Recorded Confirmed Type Ergocalciferol [Vitamin D2 50,000 unit PO Q7D 03/01/18 10/16/21 History (DRISDOL)] Rosuvastatin [Crestor] 10 mg PO HS #30 tab 10/20/19 10/16/21 Rx levETIRAcetam [Keppra] 500 mg PO BID #60 tab 10/20/19 10/16/21 Rx Cetirizine HCl [Zyrtec] 10 mg PO DAILY PRN 08/14/21 10/16/21 History DULoxetine HCL [Cymbalta] 60 mg PO DAILY 08/14/21 10/16/21 History traZODone HCL [Desyrel] 100 mg PO HS PRN 09/17/21 10/16/21 History ARIPiprazole [Abilify] 2 mg PO DAILY 10/16/21 10/16/21 History Albuterol Inhaler [Ventolin Hfa 2 puff INHALATION RT-QID PRN 10/16/21 10/16/21 History Inhaler] Losartan Potassium [Cozaar] 100 mg PO DAILY 10/16/21 10/16/21 History Omeprazole 40 mg PO AC-BRKFST 10/16/21 10/16/21 History Atorvastatin [Lipitor] 20 mg PO HS tab 10/17/21 Rx Gabapentin [Neurontin] 300 mg PO TID PRN #20 cap 10/17/21 Rx HYDROcodone/APAP 10-325MG [Cleveland 1 each PO TID PRN #20 tab 10/17/21 Rx 10-325] methocarbamoL [Robaxin] 500 mg PO TID PRN #20 tab 10/17/21 Rx Allergies Allergy/AdvReac Type Severity Reaction Status Date / Time nitrofurantoin AdvReac Abdominal Verified 10/16/21 12:25 [From Macrobid] Pain/Nausea/Vomiting NSAIDS (Non-Steroidal AdvReac Nausea & Verified 10/16/21 12:25 Anti-Inflamma Vomiting Physical Examination - Vital Signs Vital Signs: Vital Signs Temp Pulse Pulse Resp BP BP Pulse Ox 10/17/21 04:40 98.1 F 67 18 132/79 94 L 10/16/21 20:00 18 10/16/21 19:20 98.1 F 86 18 138/82 92 L 10/16/21 15:00 98.2 F 80 15 143/85 97 10/16/21 14:32 89 14 147/89 99 10/16/21 10:24 97.9 F 81 18 148/96 97 Intake and Output 10/16/21 10/17/21 10/17/21 22:59 06:59 14:59 Intake Total 600 Balance 600 Intake: Oral 600 Other: Voiding Method Bedside Commode # Voids 1 1 GENERAL: The patient is lying in bed and is in mild to moderate acute distress. CHEST: The heart rate is regular rate rhythm. No murmurs to auscultation. No carotid bruit bilaterally. LUNG: Clear to auscultation bilaterally no wheezing noted throughout. Not labored breathing. ABDOMEN/GI: Bowel sounds present in all 4 quadrants. No tenderness to palpation throughout. NEUROLOGICAL: Higher mental function: The patient is awake, alert, oriented to self, place and time. Patient is following simple commands. Patient is midly slow in responding. No aphasia and no neglect. Cranial nerves: The pupils are round, equal and reactive to light and accommodation. Visual aquino are full to confrontation throughout. Extraocular movement is intact no nystagmus is noted. Facial sensation is decrease to touch over the left entire face (but state very minimal). The facial strength is normal throughout. Hearing is mildly to moderately decreased bilaterally to hand rub. Tongue is midline and moved [id number] without any difficulty. No dysarthria is noted. Shoulder shrug is normal bilaterally. Motor: Gait is deferred because of pain. The strength is bilateral upper extremities are 5 over 5 throughout. The lowers strength is limited because of pain (more limited over the left than the right). Is able to raise lowers above gravity (but more strength over the right than left). Left ankle dorskiflexion and plantarflexion is 1-2 but has increase tone. Has increased tone over the left lower, predominately over the left ankle. Decrease bulk over the hand. Cerebellum: Normal finger to nose bilaterally. Sensation: Sensation is decrease to touch over the left lower extremity throughout, otherwise normal over the left upper extremity. Reflexes (right/left): 3+ brachioradialis, and biceps 3+ bilaterally , left triceps 3+, bilateral patellar 3+. Bilateral ankles are 1+. Plantars are mute bilaterally. Results Urinalysis is negative for urinary tract infection - Laboratory Findings CBC and BMP: 10/17/21 05:06 10/17/21 05:06 Assessment and Plan Assessment: Fall leading to non-displaced left pubic fracture Has history of repeated falls: Unsure exact cause. Possible due to chronic low back pain. History of seizure (stated last seizure 8-10 years ago) History of left leg jerking: Rule out seizure Lumbar spondylosis (and she has known history of it) History of lower back surgery History of chronic low back pain. History of chronic neck pain. History of Acute Disseminated Encephalomyelitis (ADEM) diagnosed about 8-9 years ago Memory impairement (short-term memory loss) History of hypertension Hyperlipidemia Vitamin D deficiency History of osteoporosis Plan: I ordered a CT of the head and a routine EEG. Patient is on her home dose of Keppra 500 mg 1 tablet twice a day hemoglobin A1c is 6.2 on 08/04/2021 and it does not need to be repeated. TSH: 0.625 on 08/14 and does not need to be repeated. Most recent Vitamin B12 is 431 on 08/04/2021 Every 4 hour neuro checks. Recommend EMG with nerve conduction study of bilateral upper and lower extremity as an outpatient Physical therapy and occupational therapy is consulted. ORTHOPEDIC TEAM IS ON BOARD WE'LL DEFER THE REST OF THE MEDICAL MEASURES THE PRIMARY TEAM UPON DISCHARGE THE PATIENT NEEDS TO FOLLOW-UP WITH HER NEUROLOGIST AN OUTPATIENT (she said she in the process of seeing one). She was seen by multiple neurologist in the patient according to patient. Continue to use walker. The plan is discussed with the patient and primary team. Thank you for the consultation. Joni Donaldson MD Neuro-Hospitalist Time with Patient: Greater than 30
--- NOTE | 2021-10-17 11:26 | CT ---
EXAMINATION TYPE: CT brain wo con DATE OF EXAM: 10/17/2021 HISTORY: Failure to thrive, falls, headache. CT DLP: 1121 mGycm. Automated Exposure Control for Dose Reduction was Utilized. TECHNIQUE: CT scan of the head is performed without contrast. COMPARISON: CT brain October 18, 2019 FINDINGS: There is no acute intracranial hemorrhage or midline shift identified. There is mild diff use ventricular and sulcal prominence consistent with diffuse age-related cerebral atrophy. Stable in creased sulcal prominence over bilateral frontal lobes consistent with more moderate atrophy at this level redemonstrated. Old infarct right occipital lobe axial image 32 and bilateral high occipital lo bes redemonstrated. Patchy fluid in the right ethmoid sinuses now present. Mild low attenuation in th e periventricular white matter level of right frontal horn redemonstrated. IMPRESSION: No acute intracranial hemorrhage or midline shift. There is diffuse cerebral atrophy an d chronic small vessel ischemic change along with several old infarcts are all redemonstrated. No sig nificant change from prior CT.
[2021-10-17 12:05] VITALS: BP 142/80; PULSE 71; RESP 20; TEMP 98
--- NOTE | 2021-10-17 14:03 | P.PN ---
Subjective Progress Note Date: 10/17/21 Principal diagnosis: Left lower extremity pain Muscle spasms Chronic low back pain History of L5-S1 fusion Multiple orthopedic surgeries Multiple medical comorbidities Patient was evaluated today at bedside, she is resting comfortably in her bed. I actually examined this patient on a few different occasions. I was able to observe her ambulating back from the restroom with the use of a walker. Patient still is very sporadic when it comes to her overall demeanor, this to include when she ambulates. I was able to visualize her taking a few normal steps. She continues to notice most discomfort in the left lower extremity. Neurology was also in today to evaluate the patient, the recommendations are appreciated. Patient's muscle spasms and discomfort in the left lower extremity seemed to be improved slightly. CT scans of the cervical, thoracic and lumbar were done yesterday, was able to review those with my attending and discussed the results with the patient. Patient is scheduled to be discharged to subacute rehab at this time. She continues to demonstrate no acute neural logical deficits that would require urgent orthopedic spine surgical intervention. Objective - Vital Signs Vital signs: Vital Signs Temp 98 F 10/17/21 12:02 Pulse 71 10/17/21 12:02 Resp 20 10/17/21 12:02 BP 142/80 10/17/21 12:02 Pulse Ox 94 L 10/17/21 12:02 Intake & Output 10/16/21 10/17/21 10/17/21 18:59 06:59 18:59 Intake Total 600 Balance 600 Weight 80.739 kg Intake: Oral 600 Other: Voiding Method Bedside Commode Bedside Commode # Voids 1 1 - Exam Gen: AOx3, NAD VSS stable at this time Integument: No obvious open lesions or sores were visualized throughout the bilateral lower extremities, there is a well-healed incision on the lateral aspect of the right upper leg and over the anterior left knee. No obvious open lesions or sores are visualized throughout the cervical, thoracic or lumbar spine. A well-healed incision over the upper thoracic and lumbar regions visualized. Palpation: Patient demonstrates some mild tenderness with palpation through the midline region of both the cervical and lumbar spine, there is no pain in the thoracic area. She's nontender in the paraspinal regions. ROM: Full range of motion is appreciated in all major muscle groups of the bilateral upper extremities Range of motion was difficult to assess the lower extremities, her right lower extremity she did demonstrate good motion with hip flexion, knee flexion, knee extension. Those range of motion is very difficult to assess the left lower extremity. Due to her posturing of the lower extremities, is difficult to assess plantar flexion, dorsiflexion, EHL, FHL. She was able to demonstrate these motions, but she was very stiff on exam. Sensory Exam: Senory exam to light touch is intact C5-T1 Senosry exam to light touch is intact L2-S1 No obvious focal neurological deficits are appreciated, she does admit to numbness and tingling in the bilateral feet and toes, worse on the left than the right Motor: 45 strength is appreciated in the bilateral upper extremities with shoulder abduction, shoulder elevation, elbow flexion, elbow extension, wrist extension, wrist flexion, finger intrinsics Right lower extremity- 4+5 strength appreciated with hip flexion, knee extension, knee flexion, 45 strength appreciated with plantarflexion, dorsiflexion, EHL, FHL Left lower extremity- 4-5 strength appreciated in the lower extremity with hip flexion, knee extension, knee flexion, 45 strength appreciated with plantarflexion, dorsiflexion, EHL, FHL Reflexes: Negative Long's bilaterally Babinski and clonus were difficult to assess due to the stiffness in posturing of the lower extremities Special Test: Logroll maneuver of the right lower extremity reproduces no pain, logroll maneuver the left lower extremity demonstrates pain in the posterior medial upper thigh, - Labs CBC & Chem 7: 10/17/21 05:06 10/17/21 05:06 Labs: Abnormal Lab Results - Last 24 Hours (Table) 10/17/21 Range/Units 05:06 BUN/Creatinine Ratio 20.75 H (12.00-20.00) Ratio Total Bilirubin 0.20 L (0.30-1.20) mg/dL Total Protein 5.6 L (6.2-8.2) g/dL Assessment and Plan Assessment: Left inferior pubic rami fracture Left lower extremity pain Muscle spasms Status post recent falls, history of multiple falls History of right hip hemiarthroplasty, stable appearing components History of lumbar spine surgery History of bilateral wrist fractures Multiple medical comorbidities Plan: I was able to review the CT scans of her cervical, thoracic and lumbar spine with Dr. Geronimo. I was unable discuss these results with the patient today bedside. She does have multilevel cervical spondylosis, most severe noted at C3-C4 with spondylolisthesis. She was also noted to have adjacent segment disease involving the L4-L5 with grade 1 spondylolisthesis. When reviewing the patient's symptoms, still remains very difficult to pinpoint the exact area of most concern. She does demonstrate symptoms of a left lower extremity radiculopathy which likely be coming from the lower back, her upper extremities are not demonstrating severe neurologic changes that would point towards the C6 C3-C4 area. A long discussion today regarding the best options for treatment. I would like to start the patient on a Medrol Dosepak for her discharge to rehab. I then would like for her to follow-up in our office with Dr. Geronimo the next 2 weeks. At that time we would review the patient's symptoms, and also again reviewing her most recent cervical, thoracic and lumbar imaging. At that time we would also likely discussed more in depth her history involving previous surgeries and workup by pain management. Depending on how the patient progresses and what her symptoms are over the next few weeks, patient may benefit from further imaging and also consultation by pain management. She is seen also many neurologists in the past, so will be nice for her to follow-up with neurology as scheduled basis to review her history and discuss diagnosis is. Patient will continue with her current medications for pain, this is been taking care of for rehab by internal medicine. Heart follow-up information in office information has been placed in the chart, please contact our service with any further questions. Time with Patient: Less than 30
[2021-10-17] MEDS: HYDROcodone/APAP 10-325MG 1 EACH TAB PO PRN (16:05)
[2021-10-19] MEDS ORDERED: ERGOCALCIFEROL 1,250 MCG (50,000 IU) CAPSULE PO SCH (09:00)
== END 2021-10-17 16:34 | DRG 536 ==
LOC: EC 10:20 → 5NMEDONC 13:17
PROVIDERS: ADMIT Internal Medicine; ATTEND Internal Medicine
DX: S32.592A Other specified fracture of left pubis, initial encounter for closed fracture (principal); R62.7 Adult failure to thrive; M81.0 Age-related osteoporosis without current pathological fracture; M79.7 Fibromyalgia; Z20.822 Contact with and (suspected) exposure to COVID-19; Z79.899 Other long term (current) drug therapy; M47.816 Spondylosis without myelopathy or radiculopathy, lumbar region; M47.812 Spondylosis without myelopathy or radiculopathy, cervical region; M43.12 Spondylolisthesis, cervical region; K21.9 Gastro-esophageal reflux disease without esophagitis; J45.909 Unspecified asthma, uncomplicated; M62.838 Other muscle spasm; I11.9 Hypertensive heart disease without heart failure; G89.29 Other chronic pain; W19.XXXA Unspecified fall, initial encounter; J30.9 Allergic rhinitis, unspecified; G40.909 Epilepsy, unspecified, not intractable, without status epilepticus; F32.A Depression, unspecified; F17.210 Nicotine dependence, cigarettes, uncomplicated; E55.9 Vitamin D deficiency, unspecified; R29.6 Repeated falls; E78.5 Hyperlipidemia, unspecified; Z80.0 Family history of malignant neoplasm of digestive organs; Z82.0 Family history of epilepsy and other diseases of the nervous system; Z82.3 Family history of stroke; Z82.49 Family history of ischemic heart disease and other diseases of the circulatory system; Z83.3 Family history of diabetes mellitus; Z86.16 Personal history of COVID-19; Z86.73 Personal history of transient ischemic attack (TIA), and cerebral infarction without residual deficits; Z91.81 History of falling; Z96.641 Presence of right artificial hip joint; Z96.652 Presence of left artificial knee joint; Z98.1 Arthrodesis status; Z98.42 Cataract extraction status, left eye; Z98.41 Cataract extraction status, right eye; Z96.1 Presence of intraocular lens
CPT/HCPCS: 36415; 70450; 72125; 72128; 72131; 73502; 80053; 81003; 85025; 87635; 96372; 96374; 99285

== ENCOUNTER 2021-11-15 20:07 | Emergency (ER) | payer MEDICARE, OTHER ==
[2021-11-15] MEDS ORDERED: HYDROcodone/APAP 5-325MG 1 EACH TAB PO STA (20:21)
[2021-11-15] MEDS ORDERED: ORPHENADRINE 30 MG/ML 2 ML VIAL IM STA (20:21)
--- NOTE | 2021-11-15 20:37 | ED ---
Fall HPI - General Chief Complaint: Fall Stated Complaint: Pain all over Time Seen by Provider: 11/15/21 20:12 Source: patient, EMS Mode of arrival: EMS - History of Present Illness Initial Comments: This is a 66-year-old female who arrives via EMS. Patient has a history of asthma, CVA, fibromyalgia, recent pelvic fracture, seizure disorder. Patient apparently was at a rehabilitation facility until recently. Patient is on chronic pain medication at home and states she has ongoing pain in her left hip area. She is chronic and does radiate into the thigh area. Patient states that she ran out of her Cummings. Patient states that she only took the medication. Ever perea is admitting to this. Patient states that her hip was bothering her more due to being out of the medication. Patient states her leg to give out on her secondary to pain and she fell. However, she is denying any acute injury stating that the left hip pain is essentially the same as it was prior to the fall. She denies any head or neck injury. She denies any loss of consciousness. She is not on blood thinners. No other injuries. Patient has no symptoms of saddle anesthesia. No changes in bowel when she urination. No headache, no fever or chills, no changes in vision or hearing, no sore throat or difficulty with speech, no neck pain, no chest pain or shortness of breath, no abdominal pain, no nausea or vomiting, no changes in urination or bowel movements, no numbness or tingling, no extremity pain, no skin rashes or lesions. - Related Data Home Medications Medication Instructions Recorded Confirmed Ergocalciferol [Vitamin D2 50,000 unit PO Q7D 03/01/18 10/16/21 (DRISDOL)] Cetirizine HCl [Zyrtec] 10 mg PO DAILY PRN 08/14/21 10/16/21 DULoxetine HCL [Cymbalta] 60 mg PO DAILY 08/14/21 10/16/21 traZODone HCL [Desyrel] 100 mg PO HS PRN 09/17/21 10/16/21 ARIPiprazole [Abilify] 2 mg PO DAILY 10/16/21 10/16/21 Albuterol Inhaler [Ventolin Hfa 2 puff INHALATION RT-QID PRN 10/16/21 10/16/21 Inhaler] Losartan Potassium [Cozaar] 100 mg PO DAILY 10/16/21 10/16/21 Omeprazole 40 mg PO AC-BRKFST 10/16/21 10/16/21 Previous Rx's Medication Instructions Recorded Rosuvastatin [Crestor] 10 mg PO HS #30 tab 10/20/19 levETIRAcetam [Keppra] 500 mg PO BID #60 tab 10/20/19 Atorvastatin [Lipitor] 20 mg PO HS tab 10/17/21 Gabapentin [Neurontin] 300 mg PO TID PRN #20 cap 10/17/21 HYDROcodone/APAP 10-325MG [Cummings 1 each PO TID PRN #20 tab 10/17/21 10-325] Nicotine 21Mg/24Hr Patch [Habitrol] 1 each TRANSDERM DAILY #14 patch 10/17/21 methocarbamoL [Robaxin] 500 mg PO TID PRN #20 tab 10/17/21 methylPREDNISolone Dose Pack 4 mg PO DIRECTED #1 packet 10/17/21 [Medrol Dose Pack] Allergies Allergy/AdvReac Type Severity Reaction Status Date / Time nitrofurantoin AdvReac Abdominal Verified 11/15/21 20:10 [From Macrobid] Pain/Nausea/Vomiting NSAIDS (Non-Steroidal AdvReac Nausea & Verified 11/15/21 20:10 Anti-Inflamma Vomiting Review of Systems ROS Statement: Those systems with pertinent positive or pertinent negative responses have been documented in the HPI. ROS Other: All systems not noted in ROS Statement are negative. 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 Patient states has had multiple falls and fractures. History of Any Multi-Drug Resistant Organisms: None Reported Past Surgical History: Adenoidectomy, Back Surgery, Breast Surgery, Joint Replacement, Orthopedic Surgery, Tonsillectomy Additional Past Surgical History / Comment(s): , LT HAND SURGERY,- WLEFT AND RIGHT WRIST SURGERY, RT GANGLION CYST REMOVED, LEEP, COLONOSCOPY, EGD, MIGUEL A. CATARACT WITH LENS IMLANTS,RT BREAST BIOPSY, 2 BACK SURGERIES- ONE WAS A LAMINECTOMY, TOTAL LEFT KNEE, PAIN INJECTION FOR BACK , TOTAL LEFT HIP SURGERY Past Anesthesia/Blood Transfusion Reactions: No Reported Reaction Past Psychological History: No Psychological Hx Reported Smoking Status: Current every day smoker Past Alcohol Use History: Occasional Past Drug Use History: None Reported - Past Family History Brother(s) Family Medical History: Cancer Additional Family Medical History / Comment(s): PANCREATITIS Mother Family Medical History: CVA/TIA, Hypertension, Memory Impairment Additional Family Medical History / Comment(s): of Alzheimer's at age 70 Father Family Medical History: Coronary Artery Disease (CAD), CVA/TIA, Diabetes Mellitus, Hypertension Additional Family Medical History / Comment(s): at age 68 General Exam - General Exam Comments Initial Comments: 66-year-old female in mild distress secondary to left hip pain cranial nerves II through XII are intact. No focal neurologic deficits. Limitations: no limitations General appearance: alert, in no apparent distress Head exam: Present: atraumatic, normocephalic, normal inspection Eye exam: Present: normal appearance, PERRL, EOMI. Absent: scleral icterus, conjunctival injection, periorbital swelling ENT exam: Present: normal exam, mucous membranes moist Neck exam: Present: normal inspection. Absent: tenderness, meningismus, lymphadenopathy Respiratory exam: Present: normal lung sounds bilaterally. Absent: respiratory distress, wheezes, rales, rhonchi, stridor Cardiovascular Exam: Present: regular rate, normal rhythm, normal heart sounds. Absent: systolic murmur, diastolic murmur, rubs, gallop, clicks GI/Abdominal exam: Present: soft, normal bowel sounds. Absent: distended, tenderness, guarding, rebound, rigid Extremities exam: Present: normal inspection, full ROM, tenderness (Pelvis stable. Patient has tenderness to the lateral aspect left hip. No break in skin integrity. No effusion. No erythema. Distal pulses intact.), normal capillary refill. Absent: pedal edema, joint swelling, calf tenderness Back exam: Present: normal inspection, full ROM, other (Straight leg raise is negative bilaterally. No saddle anesthesia.). Absent: tenderness, CVA tenderness (R), CVA tenderness (L), muscle spasm, paraspinal tenderness, vertebral tenderness, rash noted Neurological exam: Present: alert, oriented X3, CN II-XII intact Psychiatric exam: Present: normal affect, normal mood Skin exam: Present: warm, dry, intact, normal color. Absent: rash Course Vital Signs 11/15/21 11/15/21 11/15/21 20:10 20:57 23:37 Pulse Rate 88 70 77 Respiratory 16 16 18 Rate Blood Pressure 126/77 135/70 142/71 O2 Sat by Pulse 96 96 98 Oximetry 11/16/21 11/16/21 00:28 01:22 Pulse Rate 74 81 Respiratory 18 18 Rate Blood Pressure 137/68 148/71 O2 Sat by Pulse 96 96 Oximetry - Reevaluation(s) Reevaluation #1: 11/15/21 21:41 Medical record is reviewed Patient reevaluated, is essentially unchanged. Now patient is requesting a psychiatric evaluation. Stating that she is "crazy" and has "delusions" althoughthe patient denies any suicidal or homicidal ideation. Laboratory work ordered. Banana bag ordered. Patient in no distress Reevaluation #2: 11/16/21 02:51 Medical record is reviewed Symptoms are improved here in the emergency department Patient is informed of results and questions answered Patient in no distress Medical Decision Making - Medical Decision Making Patient having no symptoms consistent with cauda equina syndrome. Patient's x-ray shows no evidence of acute fracture. There is a healing fracture to the left pubic rami which is not worse than previously. Patient did have a psychiatric evaluation and was deemed she was well enough to go home. Patient denied any suicidal or homicidal ideations. Patient did overtake her pain medication. I did tell the patient to call her pain management physician first thing Wednesday morning. Patient can use Tylenol until she is able to obtain a new prescription. I did give her 2 doses of Cummings here. Follow-up with your regular physician as directed. Return to the ER immediately if any symptoms worsen, new symptoms arise, or any other problems develop. - Lab Data Result diagrams: 11/15/21 21:50 11/15/21 21:50 Lab Results 11/15/21 11/15/21 11/15/21 Range/Units 21:50 21:50 21:50 WBC 8.5 (3.8-10.6) k/uL RBC 4.98 (3.80-5.40) m/uL Hgb 15.4 (11.4-16.0) gm/dL Hct 46.6 H (34.0-46.0) % MCV 93.6 (80.0-100.0) fL MCH 30.9 (25.0-35.0) pg MCHC 33.1 (31.0-37.0) g/dL RDW 14.4 (11.5-15.5) % Plt Count 267 (150-450) k/uL MPV 7.1 Neutrophils % 36 % Lymphocytes % 51 % Monocytes % 6 % Eosinophils % 4 % Basophils % 1 % Neutrophils # 3.1 (1.3-7.7) k/uL Lymphocytes # 4.3 (1.0-4.8) k/uL Monocytes # 0.5 (0-1.0) k/uL Eosinophils # 0.4 (0-0.7) k/uL Basophils # 0.1 (0-0.2) k/uL Sodium 140 (137-145) mmol/L Potassium 4.2 (3.5-5.1) mmol/L Chloride 102 (98-107) mmol/L Carbon Dioxide 30 (22-30) mmol/L Anion Gap 8 mmol/L BUN 16 (7-17) mg/dL Creatinine 0.67 (0.52-1.04) mg/dL Est GFR (CKD-EPI)AfAm >90 (>60 ml/min/1.73 sqM) Est GFR (CKD-EPI)NonAf >90 (>60 ml/min/1.73 sqM) Glucose 96 (74-99) mg/dL Calcium 9.3 (8.4-10.2) mg/dL Magnesium 2.2 (1.6-2.3) mg/dL Total Bilirubin 0.4 (0.2-1.3) mg/dL AST 22 (14-36) U/L ALT 17 (4-34) U/L Alkaline Phosphatase 93 (38-126) U/L Total Protein 6.9 (6.3-8.2) g/dL Albumin 4.3 (3.5-5.0) g/dL Lipase 107 (23-300) U/L TSH 0.866 (0.465-4.680) mIU/L Urine Opiates Screen Not Detected (NotDetected) Ur Oxycodone Screen Not Detected (NotDetected) Urine Methadone Screen Not Detected (NotDetected) Ur Propoxyphene Screen Not Detected (NotDetected) Ur Barbiturates Screen Not Detected (NotDetected) U Tricyclic Antidepress Not Detected (NotDetected) Ur Phencyclidine Scrn Not Detected (NotDetected) Ur Amphetamines Screen Not Detected (NotDetected) U Methamphetamines Scrn Not Detected (NotDetected) U Benzodiazepines Scrn Not Detected (NotDetected) Urine Cocaine Screen Not Detected (NotDetected) U Marijuana (THC) Screen Not Detected (NotDetected) Disposition Clinical Impression: Chronic left hip pain, History of pelvic fracture, Narcotic dependence, Anxiety Disposition: HOME SELF-CARE Condition: Stable Instructions (If sedation given, give patient instructions): Fall Prevention (ED), Chronic Pain (ED) Additional Instructions: Need to obtain any further pain medication from her pain management physician. Call Wednesday for a recheck. Also make a follow-up appointment with your regular physician. Usual walker for all ambulation. Follow-up with your regular physician as directed. Return to the ER immediately if any symptoms worsen, new symptoms arise, or any other problems develop. Is patient prescribed a controlled substance at d/c from ED?: No Referrals: Yanni Max MD [Primary Care Provider] - 1-2 days Time of Disposition: 02:57
--- NOTE | 2021-11-15 21:11 | XR ---
EXAMINATION TYPE: XR Hip LT and AP Pelvis DATE OF EXAM: 11/15/2021 COMPARISON: 10/16/2021 HISTORY: Left hip pain TECHNIQUE: 3 views FINDINGS: There is callus formation at the left inferior pubic ramus related to healing nondisplaced fracture. Sacroiliac joints appear intact. There is right hip prosthesis. There is posterior fusion s urgery in the lower lumbar spine. The proximal left femur is intact. The left acetabulum is intact. IMPRESSION: Healing fracture left inferior pubic ramus without change in position compared to old exa m. No evidence of a new fracture.
[2021-11-15] MEDS ORDERED: SODIUM CHLORIDE 0.9% 1,000 ML with THIAMINE 100 MG, FOLIC ACID 1 MG IV ONE ×3 (21:37)
[2021-11-15 22:26] LABS: Basophils # (A) 0.1 k/uL (0-0.2); Basophils % (A) 1 %; Eosinophils # (A) 0.4 k/uL (0-0.7); Eosinophils % (A) 4 %; HCT 46.6 % (34.0-46.0); HGB 15.4 gm/dL (11.4-16.0); Lymphocytes # (A) 4.3 k/uL (1.0-4.8); Lymphocytes % (A) 51 %; MCH 30.9 pg (25.0-35.0); MCHC 33.1 g/dL (31.0-37.0); MCV 93.6 fL (80.0-100.0); Mean Platelet Volume 7.1; Monocytes # (A) 0.5 k/uL (0-1.0); Monocytes % (A) 6 %; Neutrophils # (A) 3.1 k/uL (1.3-7.7); Neutrophils % (A) 36 %; Platelet Count 267 k/uL (150-450); RBC 4.98 m/uL (3.80-5.40); RDW 14.4 % (11.5-15.5); WBC 8.5 k/uL (3.8-10.6)
[2021-11-15 22:29] LABS: ALT 17 U/L (4-34); AST 22 U/L (14-36); African American GFR (CKD) >90 (>60 ml/min/1.73 sqM); Albumin 4.3 g/dL (3.5-5.0); Alkaline Phosphatase 93 U/L (38-126); Anion Gap 8 mmol/L; Blood Urea Nitrogen 16 mg/dL (7-17); Calcium 9.3 mg/dL (8.4-10.2); Carbon Dioxide 30 mmol/L (22-30); Chloride 102 mmol/L (98-107); Glucose 96 mg/dL (74-99); Lipase 107 U/L (23-300); Magnesium 2.2 mg/dL (1.6-2.3); Non-African American GFR(CKD) >90 (>60 ml/min/1.73 sqM); Potassium 4.2 mmol/L (3.5-5.1); Sodium 140 mmol/L (137-145); Total Bilirubin 0.4 mg/dL (0.2-1.3); Total Protein 6.9 g/dL (6.3-8.2)
[2021-11-15 22:56] LABS: Amphetamine Screen,Urine Not Detected (NotDetected); Barbiturate Screen,Urine Not Detected (NotDetected); Benzodiazepines Screen,Urine Not Detected (NotDetected); Cocaine Screen,Urine Not Detected (NotDetected); Methadone Screen, Urine Not Detected (NotDetected); Opiate Screen,Urine Not Detected (NotDetected); Oxycodone Screen, Urine Not Detected (NotDetected); Phencyclidine Screen,Urine Not Detected (NotDetected); Tricyclic Antidepressant,Urine Not Detected (NotDetected); Urn Cannabinoid Scrn Not Detected (NotDetected)
[2021-11-16] MEDS ORDERED: HYDROcodone/APAP 5-325MG 1 EACH TAB PO STA ×2 (02:54→02:57)
[2021-11-16 04:30] VITALS: BP 139/70; PULSE 65; RESP 16
== END 2021-11-16 03:53 | disposition home or self-care (01) ==
LOC: EC 20:07
DX: G89.29 Other chronic pain (principal); M25.552 Pain in left hip; I10 Essential (primary) hypertension; J45.909 Unspecified asthma, uncomplicated; M19.90 Unspecified osteoarthritis, unspecified site; F17.200 Nicotine dependence, unspecified, uncomplicated; Z79.899 Other long term (current) drug therapy; Z88.1 Allergy status to other antibiotic agents; Z88.6 Allergy status to analgesic agent
CPT/HCPCS: 82075 ×2; 36415; 93005; 80053; 84443; 83690; 83735; 85025; 80306; 73502; 99284; 96372; J2360; J3411

== ENCOUNTER → 2021-11-18 | Outpatient (CLI) | payer MEDICARE, OTHER ==
--- NOTE | 2021-11-19 07:20 | CT ---
EXAMINATION TYPE: CT pelvis wo con DATE OF EXAM: 11/18/2021 COMPARISON: CT abdomen and pelvis October 29, 2019. Pelvic and left hip x-ray 3 days ago HISTORY: Left inferior pubic fracture. CT DLP: 588.2 mGycm Automated exposure control for dose reduction was used. FINDINGS: Osseous structures are demineralized. There is comminuted minimally displaced fracture deformity of t he left inferior pelvic ramus axial image 74, there is suggestion of some callus formation suggesting subacute in age. Pubic symphysis remains intact. Metallic hardware from right hip surgery is redemon strated causing artifact limiting evaluation of pelvic structures. Left hip joint shows stable mild a xial joint space loss and mild to moderate acetabular spurring. Sacroiliac joints are maintained. The re is surgical change at lumbosacral junction redemonstrated. Stable slight grade 1 anterolisthesis L 4 on L5. Moderate disc space narrowing at this level redemonstrated. Slight grade 1 retrolisthesis L3 on L4 redemonstrated with mild to moderate disc space narrowing and spurring. Prominent Schmorl node superior L3 endplate again seen. No suspicious small or large bowel dilatation. Urinary bladder and uterus appear within normal limits . No concerning pelvic fluid collection or adenopathy. No groin hernia or adenopathy noted. IMPRESSION: Subacute or healing minimally displaced fracture left inferior pelvic ramus is confirmed as suspected on recent x-ray.
== END | disposition home or self-care (01) ==
LOC: RADCTMAIN 16:14
PROVIDERS: ATTEND Orthopaedic Surgery
DX: S32.591A Other specified fracture of right pubis, initial encounter for closed fracture (principal); X58.XXXA Exposure to other specified factors, initial encounter
CPT/HCPCS: 72192

== ENCOUNTER → 2021-11-24 | Outpatient (CLI) | payer MEDICARE, OTHER ==
--- NOTE | 2021-11-24 22:16 | MR ---
EXAMINATION TYPE: MR lumbar spine wo con DATE OF EXAM: 11/24/2021 COMPARISON: CT thoracolumbar spine October 16, 2021 HISTORY: Low back pain into kristian legs TECHNIQUE: Multiplanar, multisequence imaging of the lumbar spine is performed without IV contrast. FINDINGS: Exam is suboptimal as there is motion artifact degradation. Sagittal images of the lumbar s pine show vertebral body Heights to remain satisfactory. Prominent Schmorl node in the anterior super ior L3 endplate sagittal image 13 redemonstrated. Slight grade 1 retrolisthesis of L3 on L4 and grade 1 anterolisthesis L4 on L5 are present. Artifact from posterior intrapedicular rods and screws trans fixing L5-S1 level and artificial disc material L5-S1 level is present. Multilevel disc desiccation s uperior to this is present. [id number] multilevel disc space narrowing is seen. The conus medul ozzy is normal in position and signal ending mid L1 level. The bone marrow signal intensity is with in normal limits above surgical levels. Axial images at T12-L1 level show mild broad disc bulge mildly effacing the anterior thecal sac with [id number] facet degenerative changes and ligamentum flavum hypertrophy mildly effacing left gr eater than right posterolateral thecal sac. Patent bilateral neural foramina. Axial images at L1-L2 level show lobulated broad-based right paracentral/foraminal disc protrusion ef facing the anterolateral thecal sac seen causing asymmetric mild to moderate right-sided neural isaac inal narrowing. Axial images at L2-L3 level show posterior spur disc complex mildly effacing the anterior thecal sac and mild facet arthropathy bilaterally. Patent bilateral neural foramina. Axial images at L3-L4 level show mild to moderate facet arthropathy and ligamentum flavum hypertrophy effacing posterior lateral thecal sac. Patent bilateral neural foramina. Axial images at L4-L5 level show spondylolisthesis with posterior decompression changes and patent sp inal canal. Moderate facet arthropathy bilaterally. Artifact from postsurgical change. Patent bilater al neural foramina. Axial images at L5-S1 level show artifact from metallic disc material and posterior fusion hardware. Spinal canal is preserved. Patent bilateral neural foramina. IMPRESSION: Successful posterior decompression changes lower lumbar spine. Multilevel degenerative ch anges are seen as detailed above.
== END | disposition home or self-care (01) ==
LOC: RADMRIMAIN 11:25
PROVIDERS: ATTEND Orthopaedic Surgery
DX: M51.36 Other intervertebral disc degeneration, lumbar region (principal)
CPT/HCPCS: 72148

== ENCOUNTER 2021-11-25 11:49 | Day surgery (SDC) | payer MEDICARE, OTHER ==
[2021-11-21 11:45] VITALS: BMI 27.7
[~2021-11-25 11:49] MED LIST: LACTATED RINGERS 1,000 ML IV SCH
[2021-11-25 13:23] VITALS: RESP 18; TEMP 98.2
[2021-11-25] MEDS ORDERED: LACTATED RINGERS 1,000 ML IV SCH (13:30)
[2021-11-25] MEDS ORDERED: IOPAMIDOL M200 10 ML VIAL ONE (13:43)
[2021-11-25] MEDS ORDERED: MIDAZOLAM 2 MG/2 ML VIAL ONE (13:43)
[2021-11-25] MEDS ORDERED: methylPREDNISolone ACETATE 40 MG/ML 1 ML VIAL ONE (13:43)
[2021-11-25] MEDS ORDERED: fentaNYL (PF) 50 MCG/ML 2 ML AMP ONE (13:43)
--- NOTE | 2021-11-25 14:02 | P.PCN ---
Date of Procedure: 11/25/21 Description of Procedure: PREOP DIAGNOSIS: Lumbar postlaminectomy syndrome, and lumbar radiculopathy POSTOP DIAGNOSIS: Lumbar postlaminectomy syndrome, and lumbar radiculopathy PROCEDURE: Caudal epidural steroid injection with epidurolysis and epidurogram under fluoroscopic guidance ANESTHESIA: Local with 1% lidocaine; IV sedation with Versed and fentanyl Surgeon: Roberta Sims EBL: None Specimens removed: None Fluoroscopic image: saved to electronic medical records PROCEDURE INDICATION: The patient with post-laminectomy syndrome with low back pain and radiculopathy radiating down in both legs, here for a caudal epidural steroid injection with epidurolysis. PROCEDURE DESCRIPTION: The patient was seen and identified in the preoperative area. Risks, benefits, complications, and alternatives were discussed with the patient. The patient agreed to proceed with the procedure and signed the consent. IV was started, and vital signs were stable. Patient was taken to the OR and time out was completed. The patient was placed in the prone position on procedure table and a pillow was placed under the abdomen to reduce lumbar lordosis. The lumbosacral area was prepped and draped in the usual sterile fashion. Vital signs were closely monitored during the procedure. Lateral view and the anterior-posterior plates of the sacrum were identified with infiltration of the area overlying the sacral hiatus with 1% lidocaine .A 17 gauge RK epidural needle was used to advance through the sacral hiatus into the caudal epidural space. Isovue contrast 2 mL was injected and the position of the needle was verified to be in the midline. A Racz catheter was introduced into the epidural space and was advanced towards the L5-S1 interspace under direct fluoroscopic guidance. Multiple passes were made with the catheter for lysis of epidural adhesions. Depo-Medrol 80mg with 10 ml of preservative free normal saline was injected slowly. Additional spread was seen to L4 under fluoroscopy. The needle and the catheter were withdrawn intact. Skin cleaned, and Band-Aid applied. COMPLICATIONS: None. DISPOSITION / PLANS: The patient was placed in a supine position and transferred to the recovery area in a stable condition for observation and was discharged from the recovery room after meeting discharge criteria. Home discharge instructions given to the patient by the staff. The patient was reexamined prior to discharge. The patient will schedule a follow up in the clinic in 4 weeks.
--- NOTE | 2021-11-25 14:23 | FL ---
EXAMINATION TYPE: FL guided pain mgmt statistic DATE OF EXAM: 11/25/2021 CLINICAL HISTORY: Sacral pain. TECHNIQUE: Fluoroscopy. COMPARISON: None. FINDINGS: Fluoroscopic guidance was provided during pain relief procedure performed by Dr. Torres . A total of 13 seconds of fluoroscopic time was utilized during the procedure and 3 spot images are acquired. Images acquired shows needle localization from a posterior inferior approach at the level of the sacrum. IMPRESSION: As Above.
[2021-11-25 14:25] VITALS: BP 129/74; PULSE 77
== END 2021-11-25 14:46 | disposition home or self-care (01) ==
LOC: ORPAIN 11:49
DX: M96.1 Postlaminectomy syndrome, not elsewhere classified (principal); I10 Essential (primary) hypertension; Z96.649 Presence of unspecified artificial hip joint; Z96.659 Presence of unspecified artificial knee joint; Z98.890 Other specified postprocedural states; Z88.6 Allergy status to analgesic agent; Z88.8 Allergy status to other drugs, medicaments and biological substances
CPT/HCPCS: 62264; J2250; J1030; J3010; Q9966; 99152

== ENCOUNTER → 2022-01-02 | Outpatient (CLI) | payer MEDICARE, OTHER ==
--- NOTE | 2022-01-05 07:03 | MR ---
EXAMINATION TYPE: MR cspine/tspine wo con DATE OF EXAM: 01/02/2022 COMPARISON: CT cervical and thoracic spine October 16, 2021 HISTORY: Neck/mid back pain, headaches, falls, hx lumbar surgery. TECHNIQUE: Multiplanar, multisequence imaging of the cervical and thoracic spine are performed withou t contrast. FINDINGS: Cervical spine: Sagittal images of the cervical spine show the craniocervical junction to remain within normal limits . The cervical and upper thoracic spinal cord is normal in course, caliber, and signal. Reversal of normal cervical curvature redemonstrated. The vertebral body heights are normal. Mild to moderate d isc space narrowing and spurring C4-C5 level redemonstrated. Moderate spurring and disc space narrowi ng C5-C6 level. Mild to moderate disc space narrowing C6-C7 level. The bone marrow signal intensity i s within normal limits. Axial images show the C2-C3 level to appear within normal limits. Axial images at C3-C4 level show grade 1 anterolisthesis C3 on C4, there are uncovertebral facet dege nerative changes bilaterally causing mild left-sided neural foraminal narrowing. There is central dis c protrusion effacing anterior thecal sac nearly up to ventral surface of spinal cord. Axial images at C4-C5 levels from broad-based posterior disc protrusion effaces the anterior thecal s ac with left foraminal spur disc complex causing asymmetric moderate left-sided neural foraminal narr owing. There is mild right-sided neural foraminal narrowing. Axial images at C5-C6 levels from broad-based posterior disc protrusion effacing anterior thecal sac and causing moderate left greater than right bilateral neural foraminal narrowing. Axial images at C6-C7 level show lobulated posterior disc protrusion effacing anterior thecal sac and causing moderate to severe bilateral neural foraminal narrowing. Axial images at C7-T1 levels appear within normal limits. IMPRESSION: Reversal of normal cervical curvature with multilevel degenerative changes in the cervica l spine as detailed above. Thoracic spine: Coronal images redemonstrate slight S-shaped scoliotic curvature. Spinal cord shows normal course, c aliber, and signal as it courses the thoracic spine. Vertebral body heights and disc space heights a re maintained. Bone marrow signal intensity is preserved. Few scattered tiny posterior disc herniati ons seen on sagittal images reference T6-T7 level sagittal image 9 and T10-T11 level sagittal image 10. Review of the axial images confirms multilevel tiny left paracentral disc protrusions effacing marv lateral thecal sac mid to lower thoracic spine. There is facet arthropathy effacing posterolateral th ecal sac in the lower thoracic levels on axial images. The visualized thorax and upper abdomen show n o suspicious abnormality. IMPRESSION: Slight scoliotic curvature redemonstrated with mild/moderate multilevel degenerative arechiga ges again seen as detailed above.
== END | disposition home or self-care (01) ==
LOC: RADMRIMAIN 14:05
PROVIDERS: ATTEND Orthopaedic Surgery
DX: M50.33 Other cervical disc degeneration, cervicothoracic region (principal)
CPT/HCPCS: 72141; 72146

== ENCOUNTER 2022-02-09 12:06 | Emergency (ER) | payer MEDICARE, OTHER ==
[2022-02-09 12:10] VITALS: RESP 18
[2022-02-09] MEDS ORDERED: HYDROmorphone 0.5 MG/0.5 ML SYRINGE IVP STA (12:43)
--- NOTE | 2022-02-09 12:45 | ED ---
General Adult HPI - General Chief complaint: Fall Stated complaint: Fall Time Seen by Provider: 02/09/22 12:10 Source: patient, RN notes reviewed, old records reviewed Mode of arrival: ambulatory Limitations: no limitations - History of Present Illness Initial comments: This is a 67-year-old female who presents emergency Department complaining that her right sided her chest hurts after she fell. She states she fell onto her right shoulder and right side of her chest. Patient states her leg spasmed and she fell forward and landed on her shoulder. Patient states it hurts to cough or take a deep breath and hurts with movement and particularly bending or twisting on the right side of her chest is a little pain in the right back per patient denies any sternal tenderness per patient denies any abdominal pain patient's nausea or vomiting. - Related Data Home Medications Medication Instructions Recorded Confirmed Ergocalciferol [Vitamin D2 50,000 unit PO Q7D 03/01/18 11/25/21 (DRISDOL)] Cetirizine HCl [Zyrtec] 5 mg PO DAILY PRN 08/14/21 11/25/21 DULoxetine HCL [Cymbalta] 60 mg PO DAILY 08/14/21 11/25/21 traZODone HCL [Desyrel] 100 mg PO HS PRN 09/17/21 11/25/21 ARIPiprazole [Abilify] 2 mg PO DAILY 10/16/21 11/25/21 Albuterol Inhaler [Ventolin Hfa 2 puff INHALATION QID 10/16/21 11/25/21 Inhaler] Losartan Potassium [Cozaar] 100 mg PO DAILY 10/16/21 11/25/21 Omeprazole 40 mg PO AC-BRKFST 10/16/21 11/25/21 Previous Rx's Medication Instructions Recorded Rosuvastatin [Crestor] 10 mg PO HS #30 tab 10/20/19 levETIRAcetam [Keppra] 500 mg PO BID #60 tab 10/20/19 Atorvastatin [Lipitor] 20 mg PO HS tab 10/17/21 Gabapentin [Neurontin] 300 mg PO TID PRN #20 cap 10/17/21 HYDROcodone/APAP 10-325MG [Amalia 1 each PO TID PRN #20 tab 10/17/21 10-325] Nicotine 21Mg/24Hr Patch [Habitrol] 1 each TRANSDERM DAILY #14 patch 10/17/21 methocarbamoL [Robaxin] 500 mg PO TID PRN #20 tab 10/17/21 methylPREDNISolone Dose Pack 4 mg PO DIRECTED #1 packet 10/17/21 [Medrol Dose Pack] Allergies Allergy/AdvReac Type Severity Reaction Status Date / Time nitrofurantoin AdvReac Abdominal Verified 02/09/22 12:10 [From Macrobid] Pain/Nausea/Vomiting NSAIDS (Non-Steroidal AdvReac Nausea & Verified 02/09/22 12:10 Anti-Inflamma Vomiting Review of Systems ROS Statement: Those systems with pertinent positive or pertinent negative responses have been documented in the HPI. ROS Other: All systems not noted in ROS Statement are negative. 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 Patient states has had multiple falls and fractures. History of Any Multi-Drug Resistant Organisms: None Reported Past Surgical History: Adenoidectomy, Back Surgery, Breast Surgery, Joint Replacement, Orthopedic Surgery, Tonsillectomy Additional Past Surgical History / Comment(s): , LT HAND SURGERY,- WLEFT AND RIGHT WRIST SURGERY, RT GANGLION CYST REMOVED, LEEP, COLONOSCOPY, EGD, MIGUEL A. CATARACT WITH LENS IMLANTS,RT BREAST BIOPSY, 2 BACK SURGERIES- ONE WAS A LAMINECTOMY, TOTAL LEFT KNEE, PAIN INJECTION FOR BACK , TOTAL LEFT HIP SURGERY Past Anesthesia/Blood Transfusion Reactions: No Reported Reaction Past Psychological History: No Psychological Hx Reported Smoking Status: Current every day smoker Past Alcohol Use History: Occasional Past Drug Use History: None Reported - Past Family History Brother(s) Family Medical History: Cancer Additional Family Medical History / Comment(s): PANCREATITIS. Mother Family Medical History: CVA/TIA, Hypertension, Memory Impairment Additional Family Medical History / Comment(s): of Alzheimer's at age 70. Father Family Medical History: Coronary Artery Disease (CAD), CVA/TIA, Diabetes Mellitus, Hypertension Additional Family Medical History / Comment(s): at age 68. General Exam - General Exam Comments Initial Comments: GENERAL: Patient is well-developed and well-nourished. Patient is nontoxic and well- hydrated and is in mild distress. ENT: Neck is soft and supple. No significant lymphadenopathy is noted. Oropharynx is clear. Moist mucous membranes. Neck has full range of motion without eliciting any pain. EYES: The sclera were anicteric and conjunctiva were pink and moist. Extraocular movements were intact and pupils were equal round and reactive to light. Eyelids were unremarkable. PULMONARY: Unlabored respirations. Good breath sounds bilaterally. No audible rales rhonchi or wheezing was noted. CARDIOVASCULAR: There is a regular rate and rhythm without any murmurs gallops or rubs. ABDOMEN: Soft and nontender with normal bowel sounds. SKIN: Skin is clear with no lesions or rashes and otherwise unremarkable. NEUROLOGIC: Patient is alert and oriented x3. Cranial nerves II through XII are grossly intact. Motor and sensory are also intact. Normal speech, volume and content. Symmetrical smile. MUSCULOSKELETAL: Normal extremities with adequate strength and full range of motion. Right anterior lower ribs are tender to palpation. Patient also has some anterior right shoulder tenderness. LYMPHATICS: No significant lymphadenopathy is noted PSYCHIATRIC: Normal psychiatric evaluation. Limitations: no limitations Course Vital Signs 02/09/22 02/09/22 12:08 14:10 Temperature 98 F 98.6 F Pulse Rate 82 80 Respiratory 18 18 Rate Blood Pressure 134/78 O2 Sat by Pulse 98 98 Oximetry Medical Decision Making - Medical Decision Making Patient's x-ray of the shoulder shows no acute abnormality. Patient's x-ray of the ribs and chest showed no acute abnormalities. Patient received 0.5 of Dilaudid and was doing much better. Patient was requesting Amalia was because she ran out of hers at home and she isn't able to refill them yet because she ran out of them early. I told the patient I was unable to. She seemed to be able to move around much better when she realized she was getting no narcotics go home. Disposition Clinical Impression: Fall, Chest wall contusion Disposition: HOME SELF-CARE Instructions (If sedation given, give patient instructions): Fall Prevention (ED), Chest Wall Pain (ED) Is patient prescribed a controlled substance at d/c from ED?: No Referrals: Yanni Max MD [Primary Care Provider] - 1-2 days Time of Disposition: 13:39
--- NOTE | 2022-02-09 13:26 | XR ---
EXAMINATION TYPE: XR shoulder complete RT DATE OF EXAM: 02/09/2022 CLINICAL HISTORY: pain TECHNIQUE: Three views of the right shoulder are obtained. COMPARISON: 03/01/2018 FINDINGS: Chronic deformity right humeral neck. There is no acute fracture/dislocation evident. The acromioclavicular and glenohumeral joint spaces appear within normal limits. The visualized ribs ar e intact and unremarkable. IMPRESSION: 1. There is no acute fracture or dislocation. ICD 10 NO FRACTURE, INITIAL EVALUATION
--- NOTE | 2022-02-09 13:32 | XR ---
EXAMINATION TYPE: XR ribs RT w pa chest xray DATE OF EXAM: 02/09/2022 COMPARISON: NONE HISTORY: Pain TECHNIQUE: Single view of the chest views of the ribs are submitted. FINDINGS: The lungs are clear. No Evidence for pneumothorax. No evidence for focal contusion. Medi astinal structures are midline. Evaluation of the ribs fails to demonstrate evidence for displaced r ib fracture or secondary sign of rib fracture. IMPRESSION: Negative study
[2022-02-09] MEDS ORDERED: ACET/COD 300 MG/30 MG STARTER PACK 6 TAB BTL PO STA (13:39)
[2022-02-09 14:11] VITALS: BP 134/78; PULSE 80; TEMP 98.6
== END 2022-02-09 14:12 | disposition home or self-care (01) ==
LOC: EC 12:06
DX: S20.219A Contusion of unspecified front wall of thorax, initial encounter (principal); J45.909 Unspecified asthma, uncomplicated; I10 Essential (primary) hypertension; Z86.73 Personal history of transient ischemic attack (TIA), and cerebral infarction without residual deficits; F17.200 Nicotine dependence, unspecified, uncomplicated; Z88.1 Allergy status to other antibiotic agents; Z88.6 Allergy status to analgesic agent; W19.XXXA Unspecified fall, initial encounter
CPT/HCPCS: 71101; 73030; 99284; 96374; J1170

== ENCOUNTER → 2022-02-19 | Outpatient (CLI) | payer MEDICARE, OTHER ==
[2022-02-19 16:11] LABS: HCT 41.5 % (34.0-46.0); HGB 13.1 gm/dL (11.4-16.0); Hypochromasia Slight; MCH 30.3 pg (25.0-35.0); MCHC 31.7 g/dL (31.0-37.0); MCV 95.7 fL (80.0-100.0); Mean Platelet Volume 7.1; Platelet Count 325 k/uL (150-450); RBC 4.34 m/uL (3.80-5.40); RDW 14.6 % (11.5-15.5); WBC 5.5 k/uL (3.8-10.6)
[2022-02-19 17:10] LABS: Erythrocyte Sedimentation Rate 34 mm/hr (0-20)
[2022-02-19 23:07] LABS: C Reactive Protein 1.3 mg/dL (0.00-0.80)
[2022-02-20 13:50] LABS: C-ANCA <1:20 Titer (<1:20)
== END | disposition home or self-care (01) ==
LOC: LABWHC1 14:44
PROVIDERS: ATTEND Psychiatry & Neurology Neurology
DX: G62.9 Polyneuropathy, unspecified (principal)
CPT/HCPCS: 36415; 82607; 83036; 84520; 85027; 85652; 86038; 86140; 86255; 86334; 86780

== ENCOUNTER 2022-03-18 16:57 | Inpatient (IN) | payer MEDICARE, OTHER ==
[2022-03-18] MEDS ORDERED: ASPIRIN 81 MG PO STA (17:25)
[2022-03-18] MEDS ORDERED: NITROGLYCERIN SL TABS 0.4 MG TAB SUBLINGUAL STA (17:25)
--- NOTE | 2022-03-18 17:28 | ED ---
Chest Pain HPI - General Chief Complaint: Chest Pain Stated Complaint: Chest Pain Time Seen by Provider: 03/18/22 17:10 Source: patient, EMS, RN notes reviewed, old records reviewed Mode of arrival: EMS Limitations: no limitations - History of Present Illness Initial Comments: 67-year-old female with no personal history of heart disease and family history states he had the onset of retrosternal chest pain started on the left moved to the right also did include the neck. States was 9/10 severity initially somewhat sharp but also mostly achy. No fevers chills nausea vomiting sweats no shortness of breath with it. No nausea vomiting. She was brought in by EMS. MD Complaint: chest pain - Related Data Home Medications Medication Instructions Recorded Confirmed Ergocalciferol [Vitamin D2 50,000 unit PO Q7D 03/01/18 11/25/21 (DRISDOL)] Cetirizine HCl [Zyrtec] 5 mg PO DAILY PRN 08/14/21 11/25/21 DULoxetine HCL [Cymbalta] 60 mg PO DAILY 08/14/21 11/25/21 traZODone HCL [Desyrel] 100 mg PO HS PRN 09/17/21 11/25/21 ARIPiprazole [Abilify] 2 mg PO DAILY 10/16/21 11/25/21 Albuterol Inhaler [Ventolin Hfa 2 puff INHALATION QID 10/16/21 11/25/21 Inhaler] Losartan Potassium [Cozaar] 100 mg PO DAILY 10/16/21 11/25/21 Omeprazole 40 mg PO AC-BRKFST 10/16/21 11/25/21 Previous Rx's Medication Instructions Recorded Rosuvastatin [Crestor] 10 mg PO HS #30 tab 10/20/19 levETIRAcetam [Keppra] 500 mg PO BID #60 tab 10/20/19 Atorvastatin [Lipitor] 20 mg PO HS tab 10/17/21 Gabapentin [Neurontin] 300 mg PO TID PRN #20 cap 10/17/21 HYDROcodone/APAP 10-325MG [R[place]kin 1 each PO TID PRN #20 tab 10/17/21 10-325] Nicotine 21Mg/24Hr Patch [Habitrol] 1 each TRANSDERM DAILY #14 patch 10/17/21 methocarbamoL [Robaxin] 500 mg PO TID PRN #20 tab 10/17/21 methylPREDNISolone Dose Pack 4 mg PO DIRECTED #1 packet 10/17/21 [Medrol Dose Pack] Allergies Allergy/AdvReac Type Severity Reaction Status Date / Time nitrofurantoin AdvReac Abdominal Verified 02/09/22 12:10 [From Macrobid] Pain/Nausea/Vomiting NSAIDS (Non-Steroidal AdvReac Nausea & Verified 02/09/22 12:10 Anti-Inflamma Vomiting Review of Systems ROS Statement: Those systems with pertinent positive or pertinent negative responses have been documented in the HPI. ROS Other: All systems not noted in ROS Statement are negative. EKG Findings - EKG Results: EKG: interpreted by ERMD, sinus rhythm (Normal sinus rhythm a 92. 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 Patient states has had multiple falls and fractures. History of Any Multi-Drug Resistant Organisms: None Reported Past Surgical History: Adenoidectomy, Back Surgery, Breast Surgery, Joint Replacement, Orthopedic Surgery, Tonsillectomy Additional Past Surgical History / Comment(s): , LT HAND SURGERY,- WLEFT AND RIGHT WRIST SURGERY, RT GANGLION CYST REMOVED, LEEP, COLONOSCOPY, EGD, MIGUEL A. CATARACT WITH LENS IMLANTS,RT BREAST BIOPSY, 2 BACK SURGERIES- ONE WAS A LAMINECTOMY, TOTAL LEFT KNEE, PAIN INJECTION FOR BACK , TOTAL LEFT HIP SURGERY Past Anesthesia/Blood Transfusion Reactions: No Reported Reaction Past Psychological History: No Psychological Hx Reported Smoking Status: Current every day smoker Past Alcohol Use History: Occasional Past Drug Use History: None Reported - Past Family History Brother(s) Family Medical History: Cancer Additional Family Medical History / Comment(s): PANCREATITIS. Mother Family Medical History: CVA/TIA, Hypertension, Memory Impairment Additional Family Medical History / Comment(s): of Alzheimer's at age 70. Father Family Medical History: Coronary Artery Disease (CAD), CVA/TIA, Diabetes Mellitus, Hypertension Additional Family Medical History / Comment(s): at age 68. General Exam - General Exam Comments Initial Comments: This is a well-developed well-nourished awake alert oriented 3 female Limitations: no limitations General appearance: alert, anxious Head exam: Present: atraumatic, normocephalic, normal inspection Eye exam: Present: normal appearance, PERRL, EOMI. Absent: scleral icterus, conjunctival injection, periorbital swelling ENT exam: Present: normal exam, mucous membranes moist Neck exam: Present: normal inspection, full ROM, other. Absent: tenderness, meningismus, lymphadenopathy Respiratory exam: Present: normal lung sounds bilaterally. Absent: respiratory distress, wheezes, rales, rhonchi, stridor, chest wall tenderness (No stridor or bruits) Cardiovascular Exam: Present: regular rate, normal rhythm, normal heart sounds. Absent: systolic murmur, diastolic murmur, rubs, gallop, clicks GI/Abdominal exam: Present: soft, normal bowel sounds. Absent: distended, tenderness, guarding, rebound, rigid Extremities exam: Present: normal inspection, full ROM, normal capillary refill. Absent: tenderness, pedal edema, joint swelling, calf tenderness Back exam: Present: normal inspection Neurological exam: Present: alert, oriented X3, CN II-XII intact Psychiatric exam: Present: normal affect, normal mood Skin exam: Present: warm, dry, intact, normal color. Absent: rash Course Vital Signs 03/18/22 03/18/22 03/18/22 16:59 17:27 19:00 Temperature 98.4 F Pulse Rate 94 92 83 Respiratory 20 18 18 Rate Blood Pressure 112/80 129/100 118/97 O2 Sat by Pulse 92 L 95 94 L Oximetry Chest Pain MDM - MDM Imaging reviewed no acute findings. Did discuss the findings with the patient as well as with Dr. Max the chest pain is atypical patient is also having crampy leg pain and neck pain. Patient be admitted for a rule out. Disposition Clinical Impression: Atypical chest pain, Myalgia Disposition: ADMITTED IP TO THIS [facility] Condition: Stable Referrals: Yanni Max MD [Primary Care Provider] - 1-2 days Decision Date: 03/18/22 Decision Time: 20:11
[2022-03-18 17:47] LABS: Basophils # (A) 0.1 k/uL (0-0.2); Basophils % (A) 1 %; Eosinophils # (A) 0.2 k/uL (0-0.7); Eosinophils % (A) 3 %; HCT 43.5 % (34.0-46.0); HGB 13.8 gm/dL (11.4-16.0); Lymphocytes % (A) 27 %; MCHC 31.8 g/dL (31.0-37.0); MCV 94.4 fL (80.0-100.0); Mean Platelet Volume 7.1; Monocytes # (A) 0.5 k/uL (0-1.0); Monocytes % (A) 7 %; Neutrophils # (A) 4.6 k/uL (1.3-7.7); Neutrophils % (A) 61 %; Platelet Count 289 k/uL (150-450); RBC 4.61 m/uL (3.80-5.40); RDW 14.5 % (11.5-15.5); WBC 7.5 k/uL (3.8-10.6)
[2022-03-18 18:02] LABS: INR 0.9 (<1.2); Partial Thromboplastin Time 27.9 sec (22.0-30.0); Prothrombin Time 9.9 sec (9.0-12.0)
--- NOTE | 2022-03-18 18:07 | XR ---
EXAMINATION TYPE: XR chest 2V DATE OF EXAM: 03/18/2022 COMPARISON: 02/09/2022 HISTORY: Chest pain TECHNIQUE: 2 views FINDINGS: Heart is normal. Lungs are clear of consolidation. There are no hilar masses. There are rosa st leads. There is old humeral neck fracture on the right side. There is no pleural effusion. Bones a re osteopenic. IMPRESSION: No active cardiopulmonary disease. No change.
[2022-03-18] MEDS ORDERED: MORPHINE SULFATE 4 MG/ML SYRINGE IVP STA (18:09)
[2022-03-18 18:14] LABS: ALT 13 U/L (4-34); AST 18 U/L (14-36); African American GFR (CKD) >90 (>60 ml/min/1.73 sqM); Albumin 4.1 g/dL (3.5-5.0); Alkaline Phosphatase 91 U/L (38-126); Anion Gap 6 mmol/L; Blood Urea Nitrogen 14 mg/dL (7-17); Calcium 8.9 mg/dL (8.4-10.2); Carbon Dioxide 29 mmol/L (22-30); Chloride 99 mmol/L (98-107); Creatine Kinase 32 U/L (30-135); Glucose 111 mg/dL (74-99); Lipase 61 U/L (23-300); Non-African American GFR(CKD) >90 (>60 ml/min/1.73 sqM); Potassium 4.6 mmol/L (3.5-5.1); Sodium 134 mmol/L (137-145); Total Bilirubin 0.2 mg/dL (0.2-1.3); Total Protein 6.6 g/dL (6.3-8.2)
[2022-03-18] MEDS ORDERED: NITROGLYCERIN SL TABS 0.4 MG TAB SUBLINGUAL PRN (20:12)
[2022-03-18] MEDS ORDERED: LORazepam 2 MG/ML INJ IV STA (20:14)
[2022-03-18] MEDS ORDERED: HYDROmorphone 1 MG/ML 1 ML SYRINGE IVP STA (20:14)
[2022-03-18] MEDS ORDERED: ONDANSETRON ODT 4 MG TAB PO PRN (21:23)
[2022-03-18] MEDS ORDERED: ALBUTEROL NEBULIZED 2.5 MG/3 ML INHALATION PRN (21:23)
[2022-03-18] MEDS: NICOTINE 7MG/24HR PATCH TRANSDERM SCH (22:41)
[2022-03-18] MEDS: HYDROcodone/APAP 10-325MG 1 EACH TAB PO PRN (22:41)
[2022-03-18] MEDS: GABAPENTIN 300 MG CAP PO SCH (22:41)
[2022-03-19] MEDS: HYDROcodone/APAP 10-325MG 1 EACH TAB PO PRN ×2 (03:35→07:53)
[2022-03-19] MEDS: levETIRAcetam 500 MG TAB PO SCH ×2 (07:54→21:15)
[2022-03-19] MEDS: GABAPENTIN 300 MG CAP PO SCH ×3 (07:55→21:15)
[2022-03-19] MEDS: PANTOPRAZOLE 40 MG TABLET PO SCH (07:55)
[2022-03-19] MEDS: LOSARTAN 50 MG TAB PO SCH (07:55)
[2022-03-19] MEDS: NICOTINE 7MG/24HR PATCH TRANSDERM SCH (07:56)
[2022-03-19 09:24] LABS: Chol/HDL Ratio 2.92 Ratio; LDL Cholesterol,Calculated 68.9 mg/dL (0.0-131.0)
--- NOTE | 2022-03-19 10:13 | P.CRDCN ---
History of Present Illness History of present illness: HISTORY OF PRESENTING ILLNESS This is a pleasant 67-year-old female past medical history significant for hypertension, dyslipidemia, fibromyalgia, TIA, chronic nicotine dependence. 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 We have been asked to see in consultation for chest pain. Patient presents emergency department with neck pain and chest pain. She states yesterday she had sharp chest pain, nonradiating, nonexertional. That resolved. She denies any association is of breath, diap horesis, nausea, vomiting, lightheadedness, dizziness, syncope or near syncope. Now she has pain in the front and back of her neck. It is exacerbated by moving her neck. She denies any history of CAD, SD, diabetes. She is a current every day smoker. She denies family history of CAD and with her father. DIAGNOSTICS EKG reveals sinus rhythm, heart rate 92, nonspecific T-wave abnormalities. No acute ischemia noted. Telemetry tracings indicate sinus mechanism with heart rates in the 60s80s. Chest xray no acute cardio pulmonary process. Laboratory reviewed, troponin negative 3, d-dimer negative, proBNP 25, CBC unremarkable, sodium 134, potassium 4.6, BUN 14, serum current 0.6, magnesium 2.0, triglycerides 198, cholesterol 162, LDL 68, HDL 55 Current home cardiac medications include rosuvastatin 10 mg nightly, losartan 100 mg daily REVIEW OF SYSTEMS At the time of my exam: CONSTITUTIONAL: Denies fever or chills. CARDIOVASCULAR: Denies chest pain, shortness of breath, orthopnea, PND or palpitations. RESPIRATORY: Denies cough. GASTROINTESTINAL: Denies abdominal pain, diarrhea, constipation, nausea or vomiting. MUSCULOSKELETAL: +neck pain NEUROLOGIC: Denies numbness, tingling, headacbe or weakness. ENDOCRINE: Denies fatigue, weight change, polydipsia or polyurina. GENITOURINARY: Denies burning, hematuria or urgency with micturation. HEMATOLOGIC: Denies history of anemia or bleeding. PHYSICAL EXAMINATION Blood pressure 101/67, heart rate 72, afebrile, oxygen saturations 95% on room air CONSTITUTIONAL: No apparent distress. HEENT: Head is normocephalic. Pupils are equal, round. Sclerae anicteric. Mucous membranes of the mouth are moist. No JVD. No carotid bruit. CHEST EXAMINATION: Lungs are clear to auscultation. No chest wall tenderness is noted on palpation or with deep breathing. HEART EXAMINATION: Regular rate and rhythm. S1, S2 heard. No murmurs, gallops or rub. ABDOMEN: Soft, nontender. Positive bowel sounds. EXTREMITIES: 2+ peripheral pulses, no lower extremity edema and no calf tenderness. NEUROLOGIC EXAMINATION: Patient is awake, alert and oriented x3. ASSESSMENT Chest pain, non-cardiac Neck Pain History of hypertension Dyslipidemia Fibromyalgia History of TIA Chronic nicotine dependence PLAN Patient's pain appears possible musculoskeletal, noncardiac chest pain. Acute coronary syndrome has been ruled out From cardiology perspective, no further inpatient testing at this time. Patient may follow up outpatient in an outpatient stress test can be considered. Continue losartan and statin We will follow the patient as needed. Please reconsult if needed. Nurse practitioner note has been reviewed by physician. Signing provider agrees with the documented findings, assessment, and plan of care. 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 Patient states has had multiple falls and fractures. History of Any Multi-Drug Resistant Organisms: None Reported Past Surgical History: Adenoidectomy, Back Surgery, Breast Surgery, Joint Replacement, Orthopedic Surgery, Tonsillectomy Additional Past Surgical History / Comment(s): , LT HAND SURGERY,- WLEFT AND RIGHT WRIST SURGERY, RT GANGLION CYST REMOVED, LEEP, COLONOSCOPY, EGD, MIGUEL A. CATARACT WITH LENS IMLANTS,RT BREAST BIOPSY, 2 BACK SURGERIES- ONE WAS A LAMINECTOMY, TOTAL LEFT KNEE, PAIN INJECTION FOR BACK , TOTAL LEFT HIP SURGERY Past Anesthesia/Blood Transfusion Reactions: No Reported Reaction Past Psychological History: No Psychological Hx Reported Additional Psychological History / Comment(s): SHORT TERM MEMORY LOSS. Patient lives alone. Her cousin Josh helps her sometimes. Smoking Status: Current every day smoker Past Alcohol Use History: Occasional Additional Past Alcohol Use History / Comment(s): STARTED SMOKING AT AGE 18 SMOKES 1 TO 1/2 PPD. States has been using etoh to help with chronic pain and to relax Past Drug Use History: None Reported - Past Family History Brother(s) Family Medical History: Cancer Additional Family Medical History / Comment(s): PANCREATITIS. Mother Family Medical History: CVA/TIA, Hypertension, Memory Impairment Additional Family Medical History / Comment(s): of Alzheimer's at age 70. Father Family Medical History: Coronary Artery Disease (CAD), CVA/TIA, Diabetes Mellitus, Hypertension Additional Family Medical History / Comment(s): at age 68. Medications and Allergies Home Medications Medication Instructions Recorded Confirmed Type Ergocalciferol [Vitamin D2 50,000 unit PO Q7D 03/01/18 03/18/22 History (DRISDOL)] Rosuvastatin [Crestor] 10 mg PO HS #30 tab 10/20/19 03/18/22 Rx levETIRAcetam [Keppra] 500 mg PO BID #60 tab 10/20/19 03/18/22 Rx DULoxetine HCL [Cymbalta] 60 mg PO HS 08/14/21 03/18/22 History traZODone HCL [Desyrel] 100 mg PO HS 09/17/21 03/18/22 History Albuterol Inhaler [Ventolin Hfa 2 puff INHALATION RT-QID PRN 10/16/21 03/18/22 History Inhaler] Losartan Potassium [Cozaar] 100 mg PO DAILY 10/16/21 03/18/22 History Omeprazole 40 mg PO AC-BRKFST 10/16/21 03/18/22 History Clotrimazole/Betameth Cream 1 applic TOPICAL BID 03/18/22 03/18/22 History [Lotrisone] Cyclobenzaprine [Flexeril] 10 mg PO BID PRN 03/18/22 03/18/22 History Gabapentin [Neurontin] 300 mg PO TID 03/18/22 03/18/22 History HYDROcodone/APAP 10-325MG [Sipsey 1 tab PO QID PRN 03/18/22 03/18/22 History 10-325] Nystatin 100,000 Unit/gm Powd 1 applic TOPICAL BID PRN 03/18/22 03/18/22 History [Mycostatin Powder] Ondansetron Odt [Zofran ODT] 4 mg PO TID PRN 03/18/22 03/18/22 History Allergies Allergy/AdvReac Type Severity Reaction Status Date / Time nitrofurantoin AdvReac Abdominal Verified 03/18/22 20:59 [From Macrobid] Pain/Nausea/Vomiting NSAIDS (Non-Steroidal AdvReac Nausea & Verified 03/18/22 20:59 Anti-Inflamma Vomiting Physical Exam Vitals: Vital Signs Temp Pulse Pulse Resp BP BP Pulse Ox 03/19/22 07:10 97.7 F 72 15 101/67 95 03/19/22 02:50 98.0 F 77 18 113/73 92 L 03/18/22 21:20 98.0 F 85 17 135/83 98 03/18/22 19:00 83 18 118/97 94 L 03/18/22 17:27 92 18 129/100 95 03/18/22 16:59 98.4 F 94 20 112/80 92 L Intake and Output 03/18/22 03/19/22 03/19/22 22:59 06:59 14:59 Intake Total 598 Balance 598 Intake: Oral 598 Other: # Voids 1 1 Weight 79.379 kg Results 03/18/22 17:36 03/18/22 17:36 Cardiac Enzymes 03/18/22 03/18/22 03/18/22 Range/Units 17:36 17:36 20:33 AST 18 (14-36) U/L Troponin I <0.012 <0.012 (0.000-0.034) ng/mL 03/18/22 Range/Units 23:48 AST (14-36) U/L Troponin I <0.012 (0.000-0.034) ng/mL Coagulation 03/18/22 Range/Units 17:36 PT 9.9 (9.0-12.0) sec APTT 27.9 (22.0-30.0) sec Lipids 03/18/22 Range/Units 17:36 Triglycerides 188.00 H (0.00-149.00) mg/dL Cholesterol 162.00 (0.00-200.00) mg/dL HDL Cholesterol 55.50 (40.00-60.00) mg/dL Cholesterol/HDL Ratio 2.92 Ratio CBC 03/18/22 Range/Units 17:36 WBC 7.5 (3.8-10.6) k/uL RBC 4.61 (3.80-5.40) m/uL Hgb 13.8 (11.4-16.0) gm/dL Hct 43.5 (34.0-46.0) % Plt Count 289 (150-450) k/uL Comprehensive Metabolic Panel 03/18/22 Range/Units 17:36 Sodium 134 L (137-145) mmol/L Potassium 4.6 (3.5-5.1) mmol/L Chloride 99 (98-107) mmol/L Carbon Dioxide 29 (22-30) mmol/L BUN 14 (7-17) mg/dL Creatinine 0.66 (0.52-1.04) mg/dL Glucose 111 H (74-99) mg/dL Calcium 8.9 (8.4-10.2) mg/dL AST 18 (14-36) U/L ALT 13 (4-34) U/L Alkaline Phosphatase 91 (38-126) U/L Total Protein 6.6 (6.3-8.2) g/dL Albumin 4.1 (3.5-5.0) g/dL Current Medications Generic Name Dose Route Start Last Admin Trade Name Freq PRN Reason Stop Dose Admin Hydrocodone Bitart/Acetaminophen 1 each 03/18/22 21:23 03/19/22 07:53 Hydrocodone/Apap 10-325mg 1 Each Tab PO 1 each QID PRN Administration Pain Albuterol Sulfate 2.5 mg 03/18/22 21:23 Albuterol Nebulized 2.5 Mg/3 Ml INHALATION RT-QID PRN Shortness Of Breath Atorvastatin Calcium 20 mg 03/19/22 21:00 Atorvastatin 20 Mg Tab PO HS [facility] Cyclobenzaprine HCl 10 mg 03/18/22 21:23 Cyclobenzaprine 10 Mg Tab PO BID PRN Muscle Pain Duloxetine HCl 60 mg 03/19/22 21:00 Duloxetine Hcl 60 Mg Capsule. PO HS [facility] Ergocalciferol 50,000 mcg 03/20/22 09:00 Ergocalciferol 1,250 Mcg (50,000 Iu) Capsule PO Q7D WILLIAM Gabapentin 300 mg 03/18/22 22:00 03/19/22 07:55 Gabapentin 300 Mg Cap PO 300 mg TID WILLIAM Administration Levetiracetam 500 mg 03/19/22 09:00 03/19/22 07:54 Levetiracetam 500 Mg Tab PO 500 mg BID WILLIAM Administration Losartan Potassium 100 mg 03/19/22 09:00 03/19/22 07:55 Losartan 50 Mg Tab PO 100 mg DAILY WILLIAM Administration Nicotine 1 patch 03/18/22 22:00 03/19/22 07:56 Nicotine 7mg/24hr Patch TRANSDERM 1 patch DAILY WILLIAM Administration Nitroglycerin 0.4 mg 03/18/22 20:12 Nitroglycerin Sl Tabs 0.4 Mg Tab SUBLINGUAL Q5M PRN Chest Pain Ondansetron HCl 4 mg 03/18/22 21:23 Ondansetron Odt 4 Mg Tab PO TID PRN Nausea Pantoprazole Sodium 40 mg 03/19/22 07:30 03/19/22 07:55 Pantoprazole 40 Mg Tablet PO 40 mg AC-BRKFST WILLIAM Administration Trazodone HCl 100 mg 03/19/22 21:00 Trazodone Hcl 100 Mg Tab PO HS WILLIAM Intake and Output 03/18/22 03/19/22 03/19/22 22:59 06:59 14:59 Intake Total 598 Balance 598 Intake: Oral 598 Other: # Voids 1 1 Weight 79.379 kg 03/18/22 17:36 03/18/22 17:36
--- NOTE | 2022-03-19 14:56 | P.HPIM ---
History of Present Illness H&P Date: 03/19/22 HISTORY OF PRESENT ILLNESS: This is a 67-year-old female one of my patient with a previous medical history significant for hypertension and hypertensive cardiovascular disease, hyperlipidemia, GERD, seizure disorder, ALLERGIC rhinitis, vitamin D deficiency, osteoporosis with multiple fractures, depressive disorder with psychotic features. Patient presented to the hospital due to chest pain that started on the left side than radiated to the right and up into the neck. The pain was se constantine and 9/10 and sharp and achy. No fever or chills. No vomiting. No sweats. Patient also has ongoing problems with psychosis and has been placed on Abilify but does not seem to be working. She complains of wires being around her and laser lights that are controlling her. She also complains of neck discomfort. She was brought in the hospital by EMS. Patient was found to be afebrile, heart rate 94, blood pressure 112/80, pulse ox 92%. CBC was normal. INR 0.9. D-dimer 0.43. Sodium 134 otherwise electrolytes and renal function were within normal limits. Blood sugar 111. Magnesium 2.0. Liver function tests normal. Troponin negative on 3 draws. Lipase 61. Chest x-ray reveals no active cardiopulmonary disease. Patient was placed on the observation unit and consult with cardiology completed and patient was cleared for discharge with plan for follow-up in the office for possible outpatient stress test. Consult with psychiatry added. REVIEW OF SYSTEMS: Constitutional: No documented fever, no chills, no night sweats. No weight change. No weakness, fatigue or lethargy. No daytime sleepiness. HEENT: No headache. No blurred vision or double vision, no loss of vision. No loss of Hearing, no ringing in the ears, no dizziness. No nasal drainage or congestion. No epistaxis. No sore throat. Lungs: No shortness of breath, no cough, no sputum production. No wheezing. Reports dyspnea with activity. Cardiovascular: Reported chest painresolved, no lower extremity edema. No palpitations. No paroxysmal nocturnal dyspnea. No orthopnea. No lightheadedness or dizziness. No syncopal episodes. Abdominal: Reports abdominal pain. No nausea, vomiting. No diarrhea. No constipation. No bloody or tarry stools reports loss of appetite. Genitourinary: No dysuria, increased frequency, urgency. No urinary retention. Musculoskeletal: No myalgias. No muscle weakness, positive for gait dysfunction, positive for frequent falls. positive for back pain and neck pain. Integumentary: No wounds, no lesions. No rash or pruritus. No unusual bruising. No change in hair or nails. Neurologic: No aphasia. No facial droop. No change in mentation. No head injury. No headache. No paralysis. No paresthesia. Psychiatric: positive for depression. Reports psychosis, reports anxiety. No mood swings. Endocrine: No abnormal blood sugars. No weight change. PAST MEDICAL HISTORY: Hypertension and hypertensive cardiovascular disease Hyperlipidemia. GERD. Seizure. Osteoporosis. Vitamin D deficiency. ALLERGIC rhinitis. Recurrent falls . Depressive disorder with psychotic feature PAST SURGICAL HISTORY: 2 back surgery. Left knee replacement. Right hip replacement. SOCIAL HISTORY: Patient smokes about a pack every day she continues to smoke despite multiple attempts to quit smoking, she is not ready to quit smoking, she denies any alcohol ingestion, no drug abuse. She lives alone and she has a walker and she has a caregiver that check on her once in a while. FAMILY HISTORY: Father at age of 69 from stroke and had history of hypertension, mother at the age of 71 from dementia, stroke, and hypertension, patient had 2 brothers one of them from pancreatic cancer and overdose. PHYSICAL EXAMINATION: General: 67-year-old female laying down in bed in no distress, slightly anxious. HEENT: Head is atraumatic, normocephalic, pupils were equal round reactive to light and recommendation, extraocular muscle movement were intact, sclera nonicteric, conjunctivae were pale, mucous membranes of the mouth are somewhat dry. Neck: Supple, no JVP, normal carotid upstroke bilaterally, no lymphadenopathy. Chest: Decreased breath sounds at the bases, few rhonchi, minimal expiratory wheezes, no chest wall tenderness, no intercostal retractions. Heart: First heart sound is normal, second heart sounds normal there is systolic ejection murmur 2/6 located in the left sternal border. Abdomen: Soft, nontender, nondistended, positive bowel sounds. Extremities: There is no edema no calf tenderness DP +2 bilaterally. Neurologic examination: Patient is awake alert and oriented X 3, cranial nerves II-12 appear grossly intact, muscle power were 5 out of 5 in upper extremities and 5 out of 5 in bilateral lower extremities, deep tendon reflexes normal bilaterally. ASSESSMENT AND PLAN: 1. Chest pain with negative troponins. Cardiology consult 2. Acute on chronic psychosis. Consult with psychiatry. Patient apparently has not been taking her medications at home. 3. Hypertension and hypertensive cardiovascular disease. Continue losartan 100 mg orally once every day monitor blood pressure very closely. 4. Hyperlipidemia. Continue rosuvastatin 10 mg orally once every day, monitor lipid panel, keep LDL 55-70. 5. GERD. Continue PPI. 6. Depressive disorder with psychotic feature. Continue duloxetine 60 mg orally twice every day, trazodone 100 mg at bedtime. 7. Vitamin D deficiency. Continue vitamin D supplement once every week. 8. ALLERGIC rhinitis. Continue patient on Zyrtec 10 mg orally once every day. 9. Seizure disorder. Continue Keppra 500 mg twice daily. 10. DVT prophylaxis. Heparin 5000 units subcutaneously every 8 hours . 11 GI prophylaxis. Continue PPI. 12. Patient placed as an observation status. 13. Full code. DISCHARGE PLAN Subacute rehab at [facility] ([facility] or [facility]) or admission to the mental health unit Impression and plan of care have been directed as dictated by the signing physician. Marzena Duckworth nurse practitioner acting as scribe for signing physician. 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 Patient states has had multiple falls and fractures. History of Any Multi-Drug Resistant Organisms: None Reported Past Surgical History: Adenoidectomy, Back Surgery, Breast Surgery, Joint Replacement, Orthopedic Surgery, Tonsillectomy Additional Past Surgical History / Comment(s): , LT HAND SURGERY,- WLEFT AND RIGHT WRIST SURGERY, RT GANGLION CYST REMOVED, LEEP, COLONOSCOPY, EGD, MIGUEL A. CATARACT WITH LENS IMLANTS,RT BREAST BIOPSY, 2 BACK SURGERIES- ONE WAS A LAMINECTOMY, TOTAL LEFT KNEE, PAIN INJECTION FOR BACK , TOTAL LEFT HIP SURGERY Past Anesthesia/Blood Transfusion Reactions: No Reported Reaction Past Psychological History: No Psychological Hx Reported Additional Psychological History / Comment(s): SHORT TERM MEMORY LOSS. Patient lives alone. Her cousin Josh helps her sometimes. Smoking Status: Current every day smoker Past Alcohol Use History: Occasional Additional Past Alcohol Use History / Comment(s): STARTED SMOKING AT AGE 18 SMOKES 1 TO 1/2 PPD. States has been using etoh to help with chronic pain and to relax Past Drug Use History: None Reported - Past Family History Brother(s) Family Medical History: Cancer Additional Family Medical History / Comment(s): PANCREATITIS. Mother Family Medical History: CVA/TIA, Hypertension, Memory Impairment Additional Family Medical History / Comment(s): of Alzheimer's at age 70. Father Family Medical History: Coronary Artery Disease (CAD), CVA/TIA, Diabetes Mellitus, Hypertension Additional Family Medical History / Comment(s): at age 68. Medications and Allergies Home Medications Medication Instructions Recorded Confirmed Type Ergocalciferol [Vitamin D2 50,000 unit PO Q7D 03/01/18 03/18/22 History (DRISDOL)] Rosuvastatin [Crestor] 10 mg PO HS #30 tab 10/20/19 03/18/22 Rx levETIRAcetam [Keppra] 500 mg PO BID #60 tab 10/20/19 03/18/22 Rx DULoxetine HCL [Cymbalta] 60 mg PO HS 08/14/21 03/18/22 History traZODone HCL [Desyrel] 100 mg PO HS 09/17/21 03/18/22 History Albuterol Inhaler [Ventolin Hfa 2 puff INHALATION RT-QID PRN 10/16/21 03/18/22 History Inhaler] Losartan Potassium [Cozaar] 100 mg PO DAILY 10/16/21 03/18/22 History Omeprazole 40 mg PO AC-BRKFST 10/16/21 03/18/22 History Clotrimazole/Betameth Cream 1 applic TOPICAL BID 03/18/22 03/18/22 History [Lotrisone] Cyclobenzaprine [Flexeril] 10 mg PO BID PRN 03/18/22 03/18/22 History Gabapentin [Neurontin] 300 mg PO TID 03/18/22 03/18/22 History HYDROcodone/APAP 10-325MG [[place] 1 tab PO QID PRN 03/18/22 03/18/22 History 10-325] Nystatin 100,000 Unit/gm Powd 1 applic TOPICAL BID PRN 03/18/22 03/18/22 History [Mycostatin Powder] Ondansetron Odt [Zofran ODT] 4 mg PO TID PRN 03/18/22 03/18/22 History Allergies Allergy/AdvReac Type Severity Reaction Status Date / Time nitrofurantoin AdvReac Abdominal Verified 03/18/22 20:59 [From Macrobid] Pain/Nausea/Vomiting NSAIDS (Non-Steroidal AdvReac Nausea & Verified 03/18/22 20:59 Anti-Inflamma Vomiting Physical Exam Vitals: Vital Signs Temp Pulse Pulse Resp BP BP Pulse Ox 03/19/22 02:50 98.0 F 77 18 113/73 92 L 03/18/22 21:20 98.0 F 85 17 135/83 98 03/18/22 19:00 83 18 118/97 94 L 03/18/22 17:27 92 18 129/100 95 03/18/22 16:59 98.4 F 94 20 112/80 92 L Intake and Output 03/18/22 03/19/22 03/19/22 22:59 06:59 14:59 Other: # Voids 1 1 Weight 79.379 kg Results CBC & Chem 7: 03/18/22 17:36 03/18/22 17:36 Labs: Abnormal Lab Results - Last 24 Hours (Table) 03/18/22 Range/Units 17:36 Sodium 134 L (137-145) mmol/L Glucose 111 H (74-99) mg/dL
[2022-03-19] MEDS ORDERED: HALOPERIDOL LACTATE 5 MG/ML 1 ML VIAL IM ONE (16:54)
[2022-03-19] MEDS: traZODone HCL 100 MG TAB PO SCH (21:15)
[2022-03-19] MEDS: CYCLOBENZAPRINE 10 MG TAB PO PRN (21:15)
[2022-03-19] MEDS: ATORVASTATIN 20 MG TAB PO SCH (21:15)
[2022-03-19] MEDS: DULoxetine HCL 60 MG CAPSULE.DR PO SCH (21:15)
[2022-03-20] MEDS: GABAPENTIN 300 MG CAP PO SCH ×3 (07:58→21:10)
[2022-03-20] MEDS: levETIRAcetam 500 MG TAB PO SCH ×2 (07:58→21:11)
[2022-03-20] MEDS: NICOTINE 7MG/24HR PATCH TRANSDERM SCH (07:59)
[2022-03-20] MEDS: HYDROcodone/APAP 10-325MG 1 EACH TAB PO PRN ×3 (07:59→21:59)
[2022-03-20] MEDS: PANTOPRAZOLE 40 MG TABLET PO SCH (07:59)
[2022-03-20] MEDS: LOSARTAN 50 MG TAB PO SCH (07:59)
[2022-03-20] MEDS ORDERED: ERGOCALCIFEROL 1,250 MCG (50,000 IU) CAPSULE PO SCH ×2 (09:00)
--- NOTE | 2022-03-20 10:34 | P.PN ---
Subjective Progress Note Date: 03/20/22 HISTORY OF PRESENT ILLNESS: This is a 67-year-old female one of my patient with a previous medical history significant for hypertension and hypertensive cardiovascular disease, hyperlipidemia, GERD, seizure disorder, ALLERGIC rhinitis, vitamin D deficiency, osteoporosis with multiple fractures, depressive disorder with psychotic features. Patient presented to the hospital due to chest pain that started on the left side than radiated to the right and up into the neck. The pain was severe and 9/10 and sharp and achy. No fever or chills. No vomiting. No sweats. Patient also has ongoing problems with psychosis and has been placed on Abilify but does not seem to be working. She complains of wires being around her and laser lights that are controlling her. She also complains of neck discomfort. She was brought in the hospital by EMS. Patient was found to be afebrile, heart rate 94, blood pressure 112/80, pulse ox 92%. CBC was normal. INR 0.9. D-dimer 0.43. Sodium 134 otherwise electrolytes and renal function were within normal limits. Blood sugar 111. Magnesium 2.0. Li manda function tests normal. Troponin negative on 3 draws. Lipase 61. Chest x-ray reveals no active cardiopulmonary disease. Patient was placed on the observation unit and consult with cardiology completed and patient was cleared for discharge with plan for follow-up in the office for possible outpatient stress test. Consult with psychiatry added. 03/20: Patient sitting up in bed in no apparent distress, she is a lot better today, she is less confused, she has no delusions today, she did receive 1 dose of Haldol yesterday, she will be seeing in consultation by psychiatry hours start the patient on Seroquel 25 mg orally twice every day unless otherwise recommended by mental health unit team, monitor the patient very closely, patient if deemed stable she can be transferred to [facility] unless she is a candidate for inpatient mental health unit. REVIEW OF SYSTEMS: Constitutional: No documented fever, no chills, no night sweats. No weight change. No weakness, fatigue or lethargy. No daytime sleepiness. HEENT: No headache. No blurred vision or double vision, no loss of vision. No loss of Hearing, no ringing in the ears, no dizziness. No nasal drainage or congestion. No epistaxis. No sore throat. Lungs: No shortness of breath, no cough, no sputum production. No wheezing. Reports dyspnea with activity. Cardiovascular: Reported chest painresolved, no lower extremity edema. No palpitations. No paroxysmal nocturnal dyspnea. No orthopnea. No lightheadedness or dizziness. No syncopal episodes. Abdominal: Reports abdominal pain. No nausea, vomiting. No diarrhea. No c onstipation. No bloody or tarry stools reports loss of appetite. Genitourinary: No dysuria, increased frequency, urgency. No urinary retention. Musculoskeletal: No myalgias. No muscle weakness, positive for gait dysfunction, positive for frequent falls. positive for back pain and neck pain. Integumentary: No wounds, no lesions. No rash or pruritus. No unusual bruising. No change in hair or nails. Neurologic: No aphasia. No facial droop. No change in mentation. No head injury. No headache. No paralysis. No paresthesia. Psychiatric: positive for depression. Reports psychosis, reports anxiety. No mood swings. Endocrine: No abnormal blood sugars. No weight change. PHYSICAL EXAMINATION: General: 67-year-old female laying down in bed in no distress, slightly anxious. HEENT: Head is atraumatic, normocephalic, pupils were equal round reactive to light and recommendation, extraocular muscle movement were intact, sclera nonicteric, conjunctivae were pale, mucous membranes of the mouth are somewhat dry. Neck: Supple, no JVP, normal carotid upstroke bilaterally, no lymphadenopathy. Chest: Decreased breath sounds at the bases, few rhonchi, minimal expiratory wheezes, no chest wall tenderness, no intercostal retractions. Heart: First heart sound is normal, second heart sounds normal there is systolic ejection murmur 2/6 located in the left sternal border. Abdomen: Soft, nontender, nondistended, positive bowel sounds. Extremities: There is no edema no calf tenderness DP +2 bilaterally. Neurologic examination: Patient is awake alert and oriented X 3, cranial nerves II-12 appear grossly intact, muscle power were 5 out of 5 in upper extremities and 5 out of 5 in bilateral lower extremities, deep tendon reflexes normal bilaterally. ASSESSMENT AND PLAN: 1. Chest pain with negative troponins. chest pain is pretty much noncardiac, it was recommended for the patient to be discharged from a follow-up with cardiology as an outpatient. 2. Acute on chronic psychosis. Consult with psychiatry. Patient apparently has not been taking her home medication she was on Abilify, she stopped taking it, patient was given 1 dose of health until yesterday to milligram IM and she did very well with that subsequently we'll start the patient on Seroquel 25 mg orally twice every day until she is evaluated by psychiatry. 3. Hypertension and hypertensive cardiovascular disease. Continue losartan 100 mg orally once every day monitor blood pressure very closely. 4. Hyperlipidemia. Continue rosuvastatin 10 mg orally once every day, monitor lipid panel, keep LDL 55-70. 5. GERD. Continue PPI. 6. Depressive disorder with psychotic feature. Continue duloxetine 60 mg orally twice every day, trazodone 100 mg at bedtime. 7. Vitamin D deficiency. Continue vitamin D supplement once every week. 8. ALLERGIC rhinitis. Continue patient on Zyrtec 10 mg orally once every day. 9. Seizure disorder. Continue Keppra 500 mg twice daily. 10. DVT prophylaxis. Heparin 5000 units subcutaneously every 8 hours . 11 GI prophylaxis. Continue PPI. 12. Patient placed as an observation status. 13. Full code. DISCHARGE PLAN Subacute rehab at [facility] ([facility] or [facility]) or admission to the mental health unit Objective - Vital Signs Vital signs: Vital Signs Temp 97.8 F 03/20/22 07:00 Pulse 78 03/20/22 07:00 Resp 14 03/20/22 07:00 BP 151/84 03/20/22 07:00 Pulse Ox 94 L 03/20/22 07:00 FiO2 Intake & Output 03/19/22 03/20/22 03/20/22 18:59 06:59 18:59 Intake Total 598 480 Balance 598 480 Intake: Oral 598 480 Other: # Voids 4 1 - Labs CBC & Chem 7: 03/18/22 17:36 03/18/22 17:36
[2022-03-20] MEDS: CYCLOBENZAPRINE 10 MG TAB PO PRN ×2 (12:11→20:49)
[2022-03-20] MEDS: QUEtiapine 25 MG TAB PO SCH ×2 (16:37→21:10)
[2022-03-20] MEDS ORDERED: QUEtiapine 25 MG TAB PO SCH (21:00)
[2022-03-20] MEDS: traZODone HCL 100 MG TAB PO SCH (21:10)
[2022-03-20] MEDS: ATORVASTATIN 20 MG TAB PO SCH (21:10)
[2022-03-20] MEDS: DULoxetine HCL 60 MG CAPSULE.DR PO SCH (21:11)
[2022-03-21] MEDS: PANTOPRAZOLE 40 MG TABLET PO SCH (08:36)
[2022-03-21] MEDS: LOSARTAN 50 MG TAB PO SCH (08:36)
[2022-03-21] MEDS: levETIRAcetam 500 MG TAB PO SCH ×2 (08:36→21:05)
[2022-03-21] MEDS: GABAPENTIN 300 MG CAP PO SCH ×3 (08:36→21:05)
[2022-03-21] MEDS: HYDROcodone/APAP 10-325MG 1 EACH TAB PO PRN ×3 (08:36→20:12)
[2022-03-21] MEDS: NICOTINE 7MG/24HR PATCH TRANSDERM SCH (08:44)
[2022-03-21] MEDS: QUEtiapine 25 MG TAB PO SCH ×3 (08:44→21:04)
[2022-03-21] MEDS: CYCLOBENZAPRINE 10 MG TAB PO PRN ×2 (12:21→21:04)
--- NOTE | 2022-03-21 13:41 | P.PN ---
Subjective Progress Note Date: 03/21/22 HISTORY OF PRESENT ILLNESS: This is a 67-year-old female one of my patient with a previous medical history significant for hypertension and hypertensive cardiovascular disease, hyperlipidemia, GERD, seizure disorder, ALLERGIC rhinitis, vitamin D deficiency, osteoporosis with multiple fractures, depressive disorder with psychotic features. Patient presented to the hospital due to chest pain that started on the left side than radiated to the right and up into the neck. The pain was severe and 9/10 and sharp and achy. No fever or chills. No vomiting. No sweats. Patient also has ongoing problems with psychosis and has been placed on Abilify but does not seem to be working. She complains of wires being around her and laser lights that are controlling her. She also complains of neck discomfort. She was brought in the hospital by EMS. Patient was found to be afebrile, heart rate 94, blood pressure 112/80, pulse ox 92%. CBC was normal. INR 0.9. D-dimer 0.43. Sodium 134 otherwise electrolytes and renal function were within normal limits. Blood sugar 111. Magnesium 2.0. Li manda function tests normal. Troponin negative on 3 draws. Lipase 61. Chest x-ray reveals no active cardiopulmonary disease. Patient was placed on the observation unit and consult with cardiology completed and patient was cleared for discharge with plan for follow-up in the office for possible outpatient stress test. Consult with psychiatry added. 03/20: Patient sitting up in bed in no apparent distress, she is a lot better today, she is less confused, she has no delusions today, she did receive 1 dose of Haldol yesterday, she will be seeing in consultation by psychiatry hours start the patient on Seroquel 25 mg orally twice every day unless otherwise recommended by mental health unit team, monitor the patient very closely, patient if deemed stable she can be transferred to [facility] unless she is a candidate for inpatient mental health unit. 03/21: Patient is doing a lot better today, she was seen in consultation by psychiatry and they recommended to increase her Seroquel to 25 mg orally 3 times every day, continue with the Loxitane 60 minute gram orally twice every day, patient does appear to have a significant balance issues with increased risk of falling at home, therefore physical therapy had recommended for the patient to go to subacute rehabilitation and for a different way of living at home she cannot be by herself at this stage and she will likely need to go to subacute rehabilitation such as [facility] hopefully that would be achieved on Wednesday due to the holiday weekend, and from there she would need to go to some sort of assisted care facility. REVIEW OF SYSTEMS: Constitutional: No documented fever, no chills, no night sweats. No weight change. No weakness, fatigue or lethargy. No daytime sleepiness. HEENT: No headache. No blurred vision or double vision, no loss of vision. No loss of Hearing, no ringing in the ears, no dizziness. No nasal drainage or congestion. No epistaxis. No sore throat. Lungs: No shortness of breath, no cough, no sputum production. No wheezing. Reports dyspnea with activity. Cardiovascular: Reported chest painresolved, no lower extremity edema. No palpitations. No paroxysmal nocturnal dyspnea. No orthopnea. No lig htheadedness or dizziness. No syncopal episodes. Abdominal: Reports abdominal pain. No nausea, vomiting. No diarrhea. No constipation. No bloody or tarry stools reports loss of appetite. Genitourinary: No dysuria, increased frequency, urgency. No urinary retention. Musculoskeletal: No myalgias. No muscle weakness, positive for gait dysfunction, positive for frequent falls. positive for back pain and neck pain. Integumentary: No wounds, no lesions. No rash or pruritus. No unusual bruis ing. No change in hair or nails. Neurologic: No aphasia. No facial droop. No change in mentation. No head injury. No headache. No paralysis. No paresthesia. Psychiatric: positive for depression. Reports psychosis, reports anxiety. No mood swings. Endocrine: No abnormal blood sugars. No weight change. PHYSICAL EXAMINATION: General: 67-year-old female laying down in bed in no distress, slightly anxious. HEENT: Head is atraumatic, normocephalic, pupils were equal round reactive to light and recommendation, extraocular muscle movement were intact, sclera nonicteric, conjunctivae were pale, mucous membranes of the mouth are somewhat dry. Neck: Supple, no JVP, normal carotid upstroke bilaterally, no lymphadenopathy. Chest: Decreased breath sounds at the bases, few rhonchi, minimal expiratory wheezes, no chest wall tenderness, no intercostal retractions. Heart: First heart sound is normal, second heart sounds normal there is systolic ejection murmur 2/6 located in the left sternal border. Abdomen: Soft, nontender, nondistended, positive bowel sounds. Extremities: There is no edema no calf tenderness DP +2 bilaterally. Neurologic examination: Patient is awake alert and oriented X 3, cranial nerves II-12 appear grossly intact, muscle power were 5 out of 5 in upper extremities and 5 out of 5 in bilateral lower extremities, deep tendon reflexes normal bilaterally. ASSESSMENT AND PLAN: 1. Chest pain with negative troponins. chest pain is pretty much noncardiac, it was recommended for the patient to be discharged from a follow-up with cardiology as an outpatient. 2. Acute on chronic psychosis. Continue patient on Seroquel 35 minute gram orally 3 times every day, psych evaluation appreciated. 3. Hypertension and hypertensive cardiovascular disease. Continue losartan 100 mg orally once every day monitor blood pressure very closely. 4. Hyperlipidemia. Continue rosuvastatin 10 mg orally once every day, monitor lipid panel, keep LDL 55-70. 5. GERD. Continue PPI. 6. Depressive disorder with psychotic feature. Continue duloxetine 60 mg orally twice every day, trazodone 100 mg at bedtime. 7. Vitamin D deficiency. Continue vitamin D supplement once every week. 8. ALLERGIC rhinitis. Continue patient on Zyrtec 10 mg orally once every day. 9. Seizure disorder. Continue Keppra 500 mg twice daily. 10. DVT prophylaxis. Heparin 5000 units subcutaneously every 8 hours . 11 GI prophylaxis. Continue PPI. DISCHARGE PLAN Subacute rehab at [facility] ([facility] or [facility]) Objective - Vital Signs Vital signs: Vital Signs Temp 97.4 F L 03/21/22 08:37 Pulse 70 03/21/22 08:37 Resp 16 03/21/22 08:37 BP 134/80 03/21/22 08:37 Pulse Ox 97 03/21/22 08:37 FiO2 Intake & Output 03/20/22 03/21/22 03/21/22 18:59 06:59 18:59 Intake Total 720 Balance 720 Intake: Oral 720 Other: # Voids 4 1 1 - Labs CBC & Chem 7: 03/18/22 17:36 03/18/22 17:36
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
[2022-03-21] MEDS: DULoxetine HCL 60 MG CAPSULE.DR PO SCH (21:05)
[2022-03-21] MEDS: traZODone HCL 100 MG TAB PO SCH (21:05)
[2022-03-21] MEDS: ATORVASTATIN 20 MG TAB PO SCH (21:05)
[2022-03-22] MEDS: HYDROcodone/APAP 10-325MG 1 EACH TAB PO PRN ×3 (07:37→19:29)
[2022-03-22] MEDS: GABAPENTIN 300 MG CAP PO SCH ×3 (07:37→21:01)
[2022-03-22] MEDS: PANTOPRAZOLE 40 MG TABLET PO SCH (07:38)
[2022-03-22] MEDS: levETIRAcetam 500 MG TAB PO SCH ×2 (07:38→21:01)
[2022-03-22] MEDS: QUEtiapine 25 MG TAB PO SCH ×3 (07:38→21:00)
[2022-03-22] MEDS: NICOTINE 7MG/24HR PATCH TRANSDERM SCH (07:38)
[2022-03-22] MEDS: LOSARTAN 50 MG TAB PO SCH (07:38)
[2022-03-22] MEDS: CYCLOBENZAPRINE 10 MG TAB PO PRN (12:44)
--- NOTE | 2022-03-22 14:23 | P.PN ---
Subjective Progress Note Date: 03/22/22 HISTORY OF PRESENT ILLNESS: This is a 67-year-old female one of my patient with a previous medical history significant for hypertension and hypertensive cardiovascular disease, hyperlipidemia, GERD, seizure disorder, ALLERGIC rhinitis, vitamin D deficiency, osteoporosis with multiple fractures, depressive disorder with psychotic features. Patient presented to the hospital due to chest pain that started on the left side than radiated to the right and up into the neck. The pain was severe and 9/10 and sharp and achy. No fever or chills. No vomiting. No sweats. Patient also has ongoing problems with psychosis and has been placed on Abilify but does not seem to be working. She complains of wires being around her and laser lights that are controlling her. She also complains of neck discomfort. She was brought in the hospital by EMS. Patient was found to be afebrile, heart rate 94, blood pressure 112/80, pulse ox 92%. CBC was normal. INR 0.9. D-dimer 0.43. Sodium 134 otherwise electrolytes and renal function were within normal limits. Blood sugar 111. Magnesium 2.0. Li madna function tests normal. Troponin negative on 3 draws. Lipase 61. Chest x-ray reveals no active cardiopulmonary disease. Patient was placed on the observation unit and consult with cardiology completed and patient was cleared for discharge with plan for follow-up in the office for possible outpatient stress test. Consult with psychiatry added. 03/20: Patient sitting up in bed in no apparent distress, she is a lot better today, she is less confused, she has no delusions today, she did receive 1 dose of Haldol yesterday, she will be seeing in consultation by psychiatry hours start the patient on Seroquel 25 mg orally twice every day unless otherwise recommended by mental health unit team, monitor the patient very closely, patient if deemed stable she can be transferred to [facility] unless she is a candidate for inpatient mental health unit. 03/21: Patient is doing a lot better today, she was seen in consultation by psychiatry and they recommended to increase her Seroquel to 25 mg orally 3 times every day, continue with Duloxetine 60 mg orally twice every day, patient does appear to have a significant balance issues with increased risk of falling at home, therefore physical therapy had recommended for the patient to go to subacute rehabilitation and for a different way of living at home she cannot be by herself at this stage and she will likely need to go to subacute rehabilita on such as [facility] hopefully that would be achieved on Wednesday due to the holiday weekend, and from there she would need to go to some sort of assisted care facility. 03/22: Patient sitting up in no apparent distress, she stated that she had a bad night yesterday because of visual hallucinations and delusions again she has been on Seroquel 25 mg orally 3 times every day, she appears to be more awake and more lucid today, she denies any chest pain, or any shortness breath, she seems to be episodic a bit, she was instructed about the fact that she is going to the senior living on Wednesday. REVIEW OF SYSTEMS: Constitutional: No documented fever, no chills, no night sweats. No weight change. No weakness, fatigue or lethargy. No daytime sleepiness. HEENT: No headache. No blurred vision or double vision, no loss of vision. No loss of Hearing, no ringing in the ears, no dizziness. No nasal drainage or congestion. No epistaxis. No sore throat. Lungs: No shortness of breath, no cough, no sputum production. No wheezing. Reports dyspnea with activity. Cardiovascular: Reported chest painresolved, no lower extremity edema. No palpitations. No paroxysmal nocturnal dyspnea. No orthopnea. No lightheadedness or dizziness. No syncopal episodes. Abdominal: Reports abdominal pain. No nausea, vomiting. No diarrhea. No constipation. No bloody or tarry stools reports loss of appetite. Genitourinary: No dysuria, increased frequency, urgency. No urinary retention. Musculoskeletal: No myalgias. No muscle weakness, positive for gait dysfunction, positive for frequent falls. positive for back pain and neck pain. Integumentary: No wounds, no lesions. No rash or pruritus. No unusual bruising. No change in hair or nails. Neurologic: No aphasia. No facial droop. No change in mentation. No head injury. No headache. No paralysis. No paresthesia. Psychiatric: positive for depression. Reports psychosis, reports anxiety. No mood swings. Endocrine: No abnormal blood sugars. No weight change. PHYSICAL EXAMINATION: General: 67-year-old female laying down in bed in no distress, slightly anxious. HEENT: Head is atraumatic, normocephalic, pupils were equal round reactive to light and recommendation, extraocular muscle movement were intact, sclera nonicteric, conjunctivae were pale, mucous membranes of the mouth are somewhat dry. Neck: Supple, no JVP, normal carotid upstroke bilaterally, no lymphadenopathy. Chest: Decreased breath sounds at the bases, few rhonchi, minimal expiratory wheezes, no chest wall tenderness, no intercostal retractions. Heart: First heart sound is normal, second heart sounds normal there is systolic ejection murmur 2/6 located in the left sternal border. Abdomen: Soft, nontender, nondistended, positive bowel sounds. Extremities: There is no edema no calf tenderness DP +2 bilaterally. Neurologic examination: Patient is awake alert and oriented X 3, cranial nerves II-12 appear grossly intact, muscle power were 5 out of 5 in upper extremities and 5 out of 5 in bilateral lower extremities, deep tendon reflexes normal bi laterally. ASSESSMENT AND PLAN: 1. Chest pain with negative troponins. chest pain is pretty much noncardiac, it was recommended for the patient to be discharged from a follow-up with cardiology as an outpatient. 2. Acute on chronic psychosis. Continue patient on Seroquel 35 minute gram orally 3 times every day, psych evaluation appreciated. 3. Hypertension and hypertensive cardiovascular disease. Continue losartan 100 mg orally once every day monitor blood pressure very closely. 4. Hyperlipidemia. Continue rosuvastatin 10 mg orally once every day, monitor lipid panel, keep LDL 55-70. 5. GERD. Continue PPI. 6. Depressive disorder with psychotic feature. Continue duloxetine 60 mg orally twice every day, trazodone 100 mg at bedtime. 7. Vitamin D deficiency. Continue vitamin D supplement once every week. 8. ALLERGIC rhinitis. Continue patient on Zyrtec 10 mg orally once every day. 9. Seizure disorder. Continue Keppra 500 mg twice daily. 10. DVT prophylaxis. Heparin 5000 units subcutaneously every 8 hours . 11 GI prophylaxis. Continue PPI. DISCHARGE PLAN Subacute rehab at [facility] ([facility] or [facility]) Objective - Vital Signs Vital signs: Vital Signs Temp 97.5 F L 03/22/22 08:00 Pulse 75 03/22/22 08:00 Resp 16 03/22/22 08:00 BP 120/79 03/22/22 08:00 Pulse Ox 96 03/22/22 08:00 FiO2 Intake & Output 03/21/22 03/22/22 03/22/22 18:59 06:59 18:59 Intake Total 118 118 Balance 118 118 Intake: Oral 118 118 Other: # Voids 1 1 - Labs CBC & Chem 7: 03/18/22 17:36 03/18/22 17:36
[2022-03-22] MEDS: ATORVASTATIN 20 MG TAB PO SCH (21:00)
[2022-03-22] MEDS: traZODone HCL 100 MG TAB PO SCH (21:01)
[2022-03-22] MEDS: DULoxetine HCL 60 MG CAPSULE.DR PO SCH (21:01)
[2022-03-23] MEDS: CYCLOBENZAPRINE 10 MG TAB PO PRN (06:06)
[2022-03-23] MEDS: HYDROcodone/APAP 10-325MG 1 EACH TAB PO PRN ×3 (06:06→18:28)
[2022-03-23] MEDS: QUEtiapine 25 MG TAB PO SCH ×3 (08:53→21:00)
[2022-03-23] MEDS: NICOTINE 7MG/24HR PATCH TRANSDERM SCH (08:53)
[2022-03-23] MEDS: GABAPENTIN 300 MG CAP PO SCH ×3 (08:53→21:00)
[2022-03-23] MEDS: LOSARTAN 50 MG TAB PO SCH (08:53)
[2022-03-23] MEDS: PANTOPRAZOLE 40 MG TABLET PO SCH (08:53)
[2022-03-23] MEDS: levETIRAcetam 500 MG TAB PO SCH ×2 (08:53→20:56)
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
[2022-03-23] MEDS: CALCIUM CARBONATE 500 MG CHEWABLE PO PRN ×2 (18:26→20:48)
[2022-03-23] MEDS: DULoxetine HCL 60 MG CAPSULE.DR PO SCH (20:48)
[2022-03-23] MEDS: ATORVASTATIN 20 MG TAB PO SCH (20:49)
[2022-03-23] MEDS: traZODone HCL 100 MG TAB PO SCH (20:56)
[2022-03-24] MEDS: HYDROcodone/APAP 10-325MG 1 EACH TAB PO PRN ×4 (02:38→21:33)
[2022-03-24] MEDS: LOSARTAN 50 MG TAB PO SCH (09:06)
[2022-03-24] MEDS: NICOTINE 7MG/24HR PATCH TRANSDERM SCH (09:06)
[2022-03-24] MEDS: levETIRAcetam 500 MG TAB PO SCH ×2 (09:06→20:49)
[2022-03-24] MEDS: PANTOPRAZOLE 40 MG TABLET PO SCH (09:07)
[2022-03-24] MEDS: QUEtiapine 25 MG TAB PO SCH ×3 (09:07→20:49)
[2022-03-24] MEDS: GABAPENTIN 300 MG CAP PO SCH ×3 (09:07→20:49)
[2022-03-24 10:43] LABS: Basophils # (A) 0.06 X 10*3/uL (0.00-0.10); Basophils % (A) 1.4 %; Eosinophils # (A) 0.16 X 10*3/uL (0.04-0.35); Eosinophils % (A) 3.7 %; HCT 43.8 % (37.2-46.3); HGB 13.6 g/dL (12.0-15.0); Immature Grans, Automated 0.2 %; Lymphocytes # (A) 2.01 X 10*3/uL (0.90-5.00); MCH 29.2 pg (27.0-32.0); MCHC 31.1 g/dL (32.0-37.0); Mean Platelet Volume 9.5 fL (9.5-12.2); Monocytes # (A) 0.48 X 10*3/uL (0.20-1.00); Monocytes % (A) 11.2 %; NRBC Per 100 WBC 0 /100 WBCS (0.0-0.0); Neutrophils # (A) 1.56 X 10*3/uL (1.80-7.70); Neutrophils % (A) 36.5 %; Platelet Count 252 X 10*3/uL (140-440); RBC 4.66 X 10*6/uL (4.10-5.20); WBC 4.28 X 10*3/uL (4.50-10.00)
[2022-03-24 11:03] LABS: African American GFR (CKD) 101.5 (60.0-200.0); Albumin 4.2 g/dL (3.8-4.9); Albumin/Globulin Ratio 2.18 (1.60-3.17); BUN/Creat Ratio 23.96 Ratio (12.00-20.00); Blood Urea Nitrogen 17.3 mg/dL (9.0-27.0); Calcium 9.6 mg/dL (8.7-10.3); Carbon Dioxide 29.2 mmol/L (20.0-27.5); Globulin 1.9 g/dL (1.6-3.3); Non-African American GFR(CKD) 87.6 (60.0-200.0); Potassium 5.2 mmol/L (3.5-5.5); Total Bilirubin 0.2 mg/dL (0.30-1.20); Total Protein 6.1 g/dL (6.2-8.2)
[2022-03-24] MEDS: CYCLOBENZAPRINE 10 MG TAB PO PRN (11:19)
--- NOTE | 2022-03-24 11:20 | P.DS ---
Providers Date of admission: 03/20/22 15:19 Expected date of discharge: 03/24/22 Attending physician: Yanni Max Consults: 03/19/22 07:50 Consult Physician Routine Consulting Provider: Arnie Salazar Consult Reason/Comments: CHEST PAIN Do you want consulting provider notified?: Yes 03/20/22 13:40 Consult Physician Routine Consulting Provider: Alek Baxter Consult Reason/Comments: psychosis Do you want consulting provider notified?: Already Contacted Primary care physician: Yanni Max Hospital Course: HISTORY OF PRESENT ILLNESS: This is a 67-year-old female one of my patient with a previous medical history significant for hypertension and hypertensive cardiovascular disease, hyperlipidemia, GERD, seizure disorder, ALLERGIC rhinitis, vitamin D deficiency, osteoporosis with multiple fractures, depressive disorder with psychotic features. Patient presented to the hospital due to chest pain that started on the left side than radiated to the right and up into the neck. The pain was severe and 9/10 and sharp and achy. No fever or chills. No vomiting. No sweats. Patient also has ongoing problems with psychosis and has been placed on Abilify but does not seem to be working. She complains of wires being around her and laser lights that are controlling her. She also complains of neck discomfort. She was brought in the hospital by EMS. Patient was found to be afebrile, heart rate 94, blood pressure 112/80, pulse ox 92%. CBC was normal. INR 0.9. D-dimer 0.43. Sodium 134 otherwise electrolytes and renal function were within normal limits. Blood sugar 111. Magnesium 2.0. Liver function tests normal. Troponin negative on 3 draws. Lipase 61. Chest x-ray reveals no active cardiopulmonary disease. Patient was placed on the observation unit and consult with cardiology completed and patient was cleared for discharge with plan for follow-up in the office for possible outpatient stress test. Consult with psychiatry added. 03/20: Patient sitting up in bed in no apparent distress, she is a lot better today, she is less confused, she has no delusions today, she did receive 1 dose of Haldol yesterday, she will be seeing in consultation by psychiatry hours start the patient on Seroquel 25 mg orally twice every day unless otherwise recommended by mental health unit team, monitor the patient very closely, patient if deemed stable she can be transferred to [facility] unless she is a candidate for inpatient mental health unit. 03/21: Patient is doing a lot better today, she was seen in consultation by psychiatry and they recommended to increase her Seroquel to 25 mg orally 3 times every day, continue with Duloxetine 60 mg orally twice every day, patient does appear to have a significant balance issues with increased risk of falling at home, therefore physical therapy had recommended for the patient to go to subacute rehabilitation and for a different way of living at home she cannot be by herself at this stage and she will likely need to go to subacute rehabilitation such as [facility] hopefully that would be achieved on Wednesday due to the holiday weekend, and from there she would need to go to some sort of assisted care facility. 03/22: Patient sitting up in no apparent distress, she stated that she had a bad night yesterday because of visual hallucinations and delusions again she has been on Seroquel 25 mg orally 3 times every day, she appears to be more awake and more lucid today, she denies any chest pain, or any shortness breath, she seems to be episodic a bit, she was instructed about the fact that [facility]. 03/24: Patient has been reassessed by psychiatry with recommendations for outpatient follow-up with neurology and psychiatry, continue Seroquel 25 mg 3 times daily for psychosis. Patient has been afebrile, heart rate 69, blood pressure 113/77, pulse ox 90% on room air. Repeat blood work reveals WBC 4.2, hemoglobin 13.6, platelet count 252. Sodium 138, potassium 5.2, chloride 99, CO2 29, BUN 17 and creatinine 0.7. Glucose 92. Liver function tests normal. Patient has been accepted at [facility]. Patient will be discharged once arrangements are completed. Patient is planning to go to assisted living following rehab. DISCHARGE DIAGNOSES 1. Chest pain with negative troponins. 2. Acute on chronic psychosis. 3. Hypertension and hypertensive cardiovascular disease. 4. Hyperlipidemia. 5. GERD. 6. Depressive disorder with psychotic feature. 7. Vitamin D deficiency. 8. ALLERGIC rhinitis. 9. Seizure disorder. DISCHARGE PLAN Subacute rehab at [facility] Greater than 35 minutes was utilized and coordinating patient's discharge. Impression and plan of care have been directed as dictated by the signing physician. Marzena Duckworth nurse practitioner acting as scribe for signing physician. Patient Condition at Discharge: Stable Plan - Discharge Summary New Discharge Prescriptions: New Calcium Carbonate [Tums] 500 mg PO QID PRN tab PRN Reason: Heartburn Nicotine 7Mg/24Hr Patch [Habitrol] 1 patch TRANSDERM DAILY patch QUEtiapine [SEROquel] 25 mg PO TID #90 tab Continue Ergocalciferol [Vitamin D2 (DRISDOL)] 50,000 unit PO Q7D Rosuvastatin [Crestor] 10 mg PO HS #30 tab levETIRAcetam [Keppra] 500 mg PO BID #60 tab Albuterol Inhaler [Ventolin Hfa Inhaler] 2 puff INHALATION RT-QID PRN PRN Reason: Shortness Of Breath Cyclobenzaprine [Flexeril] 10 mg PO BID PRN PRN Reason: Muscle Pain Clotrimazole/Betameth Cream [Lotrisone] 1 applic TOPICAL BID Ondansetron Odt [Zofran ODT] 4 mg PO TID PRN PRN Reason: Nausea Nystatin 100,000 Unit/gm Powd [Mycostatin Powder] 1 applic TOPICAL BID PRN PRN Reason: Rash DULoxetine HCL [Cymbalta] 60 mg PO HS traZODone HCL [Desyrel] 100 mg PO HS Losartan Potassium [Cozaar] 100 mg PO DAILY Omeprazole 40 mg PO AC-BRKFST Changed Gabapentin [Neurontin] 300 mg PO TID #9 cap HYDROcodone/APAP 10-325MG [Cayuta 10-325] 1 tab PO QID PRN #12 tab PRN Reason: Pain Discharge Medication List Ergocalciferol [Vitamin D2 (DRISDOL)] 50,000 unit PO Q7D 03/01/18 [History] Rosuvastatin [Crestor] 10 mg PO HS #30 tab 10/20/19 [Rx] levETIRAcetam [Keppra] 500 mg PO BID #60 tab 10/20/19 [Rx] DULoxetine HCL [Cymbalta] 60 mg PO HS 08/14/21 [History] traZODone HCL [Desyrel] 100 mg PO HS 09/17/21 [History] Albuterol Inhaler [Ventolin Hfa Inhaler] 2 puff INHALATION RT-QID PRN 10/16/21 [History] Losartan Potassium [Cozaar] 100 mg PO DAILY 10/16/21 [History] Omeprazole 40 mg PO AC-BRKFST 10/16/21 [History] Clotrimazole/Betameth Cream [Lotrisone] 1 applic TOPICAL BID 03/18/22 [History] Cyclobenzaprine [Flexeril] 10 mg PO BID PRN 03/18/22 [History] Nystatin 100,000 Unit/gm Powd [Mycostatin Powder] 1 applic TOPICAL BID PRN 03/18/22 [History] Ondansetron Odt [Zofran ODT] 4 mg PO TID PRN 03/18/22 [History] Calcium Carbonate [Tums] 500 mg PO QID PRN tab 03/24/22 [Rx] Gabapentin [Neurontin] 300 mg PO TID #9 cap 03/24/22 [Rx] HYDROcodone/APAP 10-325MG [Cayuta 10-325] 1 tab PO QID PRN #12 tab 03/24/22 [Rx] Nicotine 7Mg/24Hr Patch [Habitrol] 1 patch TRANSDERM DAILY patch 03/24/22 [Rx] QUEtiapine [SEROquel] 25 mg PO TID #90 tab 03/24/22 [Rx] Follow up Appointment(s)/Referral(s): Barron Dick MD [STAFF PHYSICIAN] - 2 Weeks Yanni Max MD [Primary Care Provider] - 1 Week (AT [facility]) Discharge Disposition: TRANSFER TO SNF/ECF
[2022-03-24] MEDS: traZODone HCL 100 MG TAB PO SCH (20:49)
[2022-03-24] MEDS: DULoxetine HCL 60 MG CAPSULE.DR PO SCH (20:49)
[2022-03-24] MEDS: ATORVASTATIN 20 MG TAB PO SCH (20:49)
[2022-03-25] MEDS: HYDROcodone/APAP 10-325MG 1 EACH TAB PO PRN ×2 (06:51→12:43)
[2022-03-25] MEDS: PANTOPRAZOLE 40 MG TABLET PO SCH (10:12)
[2022-03-25] MEDS: NICOTINE 7MG/24HR PATCH TRANSDERM SCH (10:13)
[2022-03-25] MEDS: levETIRAcetam 500 MG TAB PO SCH (10:13)
[2022-03-25] MEDS: GABAPENTIN 300 MG CAP PO SCH (10:13)
[2022-03-25] MEDS: LOSARTAN 50 MG TAB PO SCH (10:13)
[2022-03-25] MEDS: QUEtiapine 25 MG TAB PO SCH (10:13)
[2022-03-25] MEDS: CYCLOBENZAPRINE 10 MG TAB PO PRN (10:57)
--- NOTE | 2022-03-25 11:18 | P.PN ---
Subjective Progress Note Date: 03/24/22 HISTORY OF PRESENT ILLNESS: This is a 67-year-old female one of my patient with a previous medical history significant for hypertension and hypertensive cardiovascular disease, hyperlipidemia, GERD, seizure disorder, ALLERGIC rhinitis, vitamin D deficiency, osteoporosis with multiple fractures, depressive disorder with psychotic features. Patient presented to the hospital due to chest pain that started on the left side than radiated to the right and up into the neck. The pain was severe and 9/10 and sharp and achy. No fever or chills. No vomiting. No sweats. Patient also has ongoing problems with psychosis and has been placed on Abilify but does not seem to be working. She complains of wires being around her and laser lights that are controlling her. She also complains of neck discomfort. She was brought in the hospital by EMS. Patient was found to be afebrile, heart rate 94, blood pressure 112/80, pulse ox 92%. CBC was normal. INR 0.9. D-dimer 0.43. Sodium 134 otherwise electrolytes and renal function were within normal limits. Blood sugar 111. Magnesium 2.0. Li manda function tests normal. Troponin negative on 3 draws. Lipase 61. Chest x-ray reveals no active cardiopulmonary disease. Patient was placed on the observation unit and consult with cardiology completed and patient was cleared for discharge with plan for follow-up in the office for possible outpatient stress test. Consult with psychiatry added. 03/20: Patient sitting up in bed in no apparent distress, she is a lot better today, she is less confused, she has no delusions today, she did receive 1 dose of Haldol yesterday, she will be seeing in consultation by psychiatry hours start the patient on Seroquel 25 mg orally twice every day unless otherwise recommended by mental health unit team, monitor the patient very closely, patient if deemed stable she can be transferred to [facility] unless she is a candidate for inpatient mental health unit. 03/21: Patient is doing a lot better today, she was seen in consultation by psychiatry and they recommended to increase her Seroquel to 25 mg orally 3 times every day, continue with Duloxetine 60 mg orally twice every day, patient does appear to have a significant balance issues with increased risk of falling at home, therefore physical therapy had recommended for the patient to go to subacute rehabilitation and for a different way of living at home she cannot be by herself at this stage and she will likely need to go to subacute rehabilita tion such as [facility] hopefully that would be achieved on Wednesday due to the holiday weekend, and from there she would need to go to some sort of assisted care facility. 03/22: Patient sitting up in no apparent distress, she stated that she had a bad night yesterday because of visual hallucinations and delusions again she has been on Seroquel 25 mg orally 3 times every day, she appears to be more awake and more lucid today, she denies any chest pain, or any shortness breath, she seems to be episodic a bit, she was instructed about the fact that she is going [facility] [place] [facility]. 03/24: Patient has been reassessed by psychiatry with recommendations for outpatient follow-up with neurology and psychiatry, continue Seroquel 25 mg 3 times daily for psychosis. Patient has been afebrile, heart rate 69, blood pressure 113/77, pulse ox 90% on room air. Repeat blood work reveals WBC 4.2, hemoglobin 13.6, platelet count 252. Sodium 138, potassium 5.2, chloride 99, CO2 29, BUN 17 and creatinine 0.7. Glucose 92. Liver function tests normal. Patient was not accepted at [facility] and other facility needed to be found to accept the patient thus delaying discharge. Patient will be discharged once arrangements are completed. Patient is planning to go to assisted living following rehab. REVIEW OF SYSTEMS: Constitutional: No documented fever, no chills, no night sweats. No weight change. No weakness, fatigue or lethargy. No daytime sleepiness. HEENT: No headache. No blurred vision or double vision, no loss of vision. No loss of Hearing, no ringing in the ears, no dizziness. No nasal drainage or congestion. No epistaxis. No sore throat. Lungs: No shortness of breath, no cough, no sputum production. No wheezing. Reports dyspnea with activity. Cardiovascular: Reported chest painresolved, no lower extremity edema. No palpitations. No paroxysmal nocturnal dyspnea. No orthopnea. No lightheadedness or dizziness. No syncopal episodes. Abdominal: Reports abdominal pain. No nausea, vomiting. No diarrhea. No constipation. No bloody or tarry stools reports loss of appetite. Genitourinary: No dysuria, increased frequency, urgency. No urinary retention. Musculoskeletal: No myalgias. No muscle weakness, positive for gait dysfunction, positive for frequent falls. positive for back pain and neck pain. Integumentary: No wounds, no lesions. No rash or pruritus. No unusual bruising. No change in hair or nails. Neurologic: No aphasia. No facial droop. No change in mentation. No head injury. No headache. No paralysis. No paresthesia. Psychiatric: positive for depression. Reports psychosis-improved, reports anxiety. No mood swings. Endocrine: No abnormal blood sugars. No weight change. PHYSICAL EXAMINATION: General: 67-year-old female laying down in bed in no distress, slightly anxious. HEENT: Head is atraumatic, normocephalic, pupils were equal round reactive to light and recommendation, extraocular muscle movement were intact, sclera nonicteric, conjunctivae were pale, mucous membranes of the mouth are somewhat dry. Neck: Supple, no JVP, normal carotid upstroke bilaterally, no lymphadenopathy. Chest: Decreased breath sounds at the bases, few rhonchi, minimal expiratory wheezes, no chest wall tenderness, no intercostal retractions. Heart: First heart sound is normal, second heart sounds normal there is systolic ejection murmur 2/6 located in the left sternal border. Abdomen: Soft, nontender, nondistended, positive bowel sounds. Extremities: There is no edema no calf tenderness DP +2 bilaterally. Neurologic examination: Patient is awake alert and oriented X 3, cranial nerves II-12 appear grossly intact, muscle power were 5 out of 5 in upper extremities and 5 out of 5 in bilateral lower extremities, deep tendon reflexes normal bilaterally. ASSESSMENT AND PLAN: 1. Chest pain with negative troponins. chest pain is pretty much noncardiac, it was recommended for the patient to be discharged from a follow-up with cardiology as an outpatient. 2. Acute on chronic psychosis. Continue patient on Seroquel 35 minute gram orally 3 times every day, psych evaluation appreciated. 3. Hypertension and hypertensive cardiovascular disease. Continue losartan 100 mg orally once every day monitor blood pressure very closely. 4. Hyperlipidemia. Continue rosuvastatin 10 mg orally once every day, monitor lipid panel, keep LDL 55-70. 5. GERD. Continue PPI. 6. Depressive disorder with psychotic feature. Continue duloxetine 60 mg orally twice every day, trazodone 100 mg at bedtime. 7. Vitamin D deficiency. Continue vitamin D supplement once every week. 8. ALLERGIC rhinitis. Continue patient on Zyrtec 10 mg orally once every day. 9. Seizure disorder. Continue Keppra 500 mg twice daily. 10. DVT prophylaxis. Heparin 5000 units subcutaneously every 8 hours . 11 GI prophylaxis. Continue PPI. DISCHARGE PLAN Subacute rehab at [facility] Impression and plan of care have been directed as dictated by the signing physician. Marzena Duckworth nurse practitioner acting as scribe for signing physic sean. Objective - Vital Signs Vital signs: Vital Signs Temp 97.4 F L 03/25/22 07:29 Pulse 72 03/25/22 07:29 Resp 18 03/25/22 07:29 BP 118/74 03/25/22 07:29 Pulse Ox 96 03/25/22 07:29 FiO2 Intake & Output 03/24/22 03/25/22 03/25/22 18:59 06:59 18:59 Other: # Voids 2 1 1 - Labs CBC & Chem 7: 03/24/22 08:00 03/24/22 08:00
[2022-03-25 14:42] VITALS: BP 107/57; PULSE 78; RESP 16; TEMP 97.7
== END 2022-03-25 15:35 | disposition home health service (06) | DRG 313 ==
LOC: EC 16:57 → 6NMEDSUR 20:12 → OBSVTOIN 03-20 15:19
PROVIDERS: ADMIT Internal Medicine; ATTEND Internal Medicine
DX: R07.89 Other chest pain (principal); F32.3 Major depressive disorder, single episode, severe with psychotic features; E55.9 Vitamin D deficiency, unspecified; F29 Unspecified psychosis not due to a substance or known physiological condition; I11.9 Hypertensive heart disease without heart failure; E78.5 Hyperlipidemia, unspecified; F17.210 Nicotine dependence, cigarettes, uncomplicated; G40.909 Epilepsy, unspecified, not intractable, without status epilepticus; J45.909 Unspecified asthma, uncomplicated; R29.6 Repeated falls; M79.7 Fibromyalgia; K21.9 Gastro-esophageal reflux disease without esophagitis; G89.29 Other chronic pain; Z96.652 Presence of left artificial knee joint; Z96.641 Presence of right artificial hip joint; Z60.2 Problems related to living alone; M81.0 Age-related osteoporosis without current pathological fracture; I69.311 Memory deficit following cerebral infarction; Z79.899 Other long term (current) drug therapy; Z91.14 Patient's other noncompliance with medication regimen; Z83.3 Family history of diabetes mellitus; Z82.49 Family history of ischemic heart disease and other diseases of the circulatory system; Z82.3 Family history of stroke; Z82.0 Family history of epilepsy and other diseases of the nervous system; Z80.0 Family history of malignant neoplasm of digestive organs; Z88.6 Allergy status to analgesic agent; Z88.8 Allergy status to other drugs, medicaments and biological substances
CPT/HCPCS: 36415; 71046; 80053; 80061; 82550; 83690; 83735; 83880; 84484; 85025; 85379; 85610; 85730; 93005; 96374; 96375; 99285

== ENCOUNTER → 2022-08-04 | Outpatient (CLI) | payer MEDICARE, MEDICAID ==
[2022-08-04 18:43] LABS: African American GFR (CKD) >90 (>60 ml/min/1.73 sqM); Blood Urea Nitrogen 23 mg/dL (7-17); Non-African American GFR(CKD) >90 (>60 ml/min/1.73 sqM)
--- NOTE | 2022-08-05 15:51 | CT ---
EXAMINATION TYPE: CT chest w con CT DLP: 459.6 mGycm, Automated exposure control for dose reduction was used. DATE OF EXAM: 08/04/2022 7:19 PM COMPARISON: 06/14/2022 chest radiograph. CLINICAL INDICATION:Female, 67 years old with history of J18.9 PNEUMONIA, UNSPECIFIED ORGANISM, Follo w up for pneumonia TECHNIQUE: Multiple axial images were obtained through the chest. Sagittal and coronal reformats were created for review. Contrast used:100cc mL of Isovue 370 with IV Contrast. Oral contrast used: none. FINDINGS: LUNGS/ PLEURA: No evidence of focal consolidation, pneumothorax or pleural effusion. No suspicious pu lmonary nodules identified. AIRWAY: Patent and unremarkable. HEART: Size within normal limits. MEDIASTINUM: No gross evidence of adenopathy. VASCULATURE: No aortic aneurysm. Pulmonary trunk is dilated up to 3.4 cm MUSCULOSKELETAL: No acute osseous abnormalities, mild multilevel disc degeneration changes throughout the spine. Degeneration changes of the shoulders bilaterally. SOFT TISSUES/LYMPH NODES: Unremarkable. LOWER NECK: No significant findings. UPPER ABDOMEN: Gallstones are present within the gallbladder lumen. IMPRESSION: 1. No evidence for acute intrathoracic process. No evidence for pneumonia. 2. Pulmonary hypertension suggested. 3. Cholelithiasis.
== END | disposition home or self-care (01) ==
LOC: RADCTMAIN 17:28
PROVIDERS: ATTEND Internal Medicine
DX: J18.9 Pneumonia, unspecified organism (principal); I10 Essential (primary) hypertension; K80.20 Calculus of gallbladder without cholecystitis without obstruction
CPT/HCPCS: 82565; 84520; 71260; 36415; Q9967

== ENCOUNTER → 2022-08-13 | Outpatient (CLI) | payer MEDICARE, MEDICAID ==
--- NOTE | 2022-08-13 15:22 | US ---
EXAMINATION TYPE: US venous doppler duplex LE DATE OF EXAM: 08/13/2022 3:08 PM COMPARISON: NONE CLINICAL HISTORY: MIGUEL A LOW EXT R60.0 LOCALIZED EDEMA. SIDE PERFORMED: Bilateral TECHNIQUE: The lower extremity deep venous system is examined utilizing real time linear array sonog lynette with graded compression, doppler sonography and color-flow sonography. VESSELS IMAGED: Common Femoral Vein Deep Femoral Vein Greater Saphenous Vein * Femoral Vein Popliteal Vein Small Saphenous Vein * Proximal Calf Veins (* superficial vessels) Right Leg: neg for RLE dvt Left Leg: neg for LLE dvt Results called to Patricia in office at the time of the exam. Grayscale, color doppler, spectral doppler imaging performed of the deep veins of the bilateral lower extremities. There is normal flow, compressibility, vascular waveforms. IMPRESSION: No ultrasound evidence for acute DVT in either lower extremity.
== END | disposition home or self-care (01) ==
LOC: RADUSWWP 13:46
PROVIDERS: ATTEND Internal Medicine
DX: R60.0 Localized edema (principal)
CPT/HCPCS: 93970

== ENCOUNTER 2022-09-03 06:32 | Day surgery (SDC) | payer MEDICARE, OTHER ==
[2022-08-31 11:47] VITALS: BMI 33.6
[~2022-09-03 06:32] MED LIST changes: +ALPRAZolam 0.25 MG TAB PO PRN; +ALPRAZolam 0.5 MG TAB PO PRN; -LACTATED RINGERS 1,000 ML IV SCH; +NITROGLYCERIN SL TABS 0.4 MG TAB SUBLINGUAL PRN; +SODIUM CHLORIDE 0.9% 1,000 ML in EMPTY BAG 1 BAG IV SCH
[2022-09-03] MEDS ORDERED: SODIUM CHLORIDE 0.9% 1,000 ML IV ONE (06:41)
[2022-09-03] MEDS ORDERED: HEPARIN SODIUM,PORCINE 2,500 UNIT in SODIUM CHLORIDE 0.9% 250 ML IRRIGATION PRN (07:00)
[2022-09-03] MEDS ORDERED: ATORVASTATIN 80 MG TAB PO ONE (07:00)
[2022-09-03] MEDS ORDERED: HEPARIN SODIUM,PORCINE 10,000 UNIT in SODIUM CHLORIDE 0.9% 1,000 ML IRRIGATION PRN (07:00)
[2022-09-03] MEDS ORDERED: ASPIRIN 325 MG TAB PO ONE (07:00)
[2022-09-03 07:17] VITALS: RESP 16; TEMP 97.2
[2022-09-03] MEDS ORDERED: MIDAZOLAM 2 MG/2 ML VIAL IV ONE ×2 (07:40)
[2022-09-03] MEDS ORDERED: LIDOCAINE 1% INJ 10MG/ML (30 ML VIAL-PF) SQ ONE (07:45)
[2022-09-03] MEDS ORDERED: VERAPAMIL SYRINGE (5 MG/10 ML) INTRAARTER ONE (07:46)
[2022-09-03] MEDS ORDERED: HYDROmorphone 0.5 MG/0.5 ML SYRINGE IVP ONE (07:50)
[2022-09-03] MEDS ORDERED: HEPARIN SODIUM 1,000 UN/ML (10ML VL) IV ONE (07:52)
[2022-09-03] MEDS ORDERED: IOPAMIDOL-370 100ML BTL INJ ONE ×2 (08:04)
[2022-09-03] MEDS ORDERED: RX INFO: IV CONTRAST WAS GIVEN 1 EACH MISC MISCELLANE PRN (08:07)
--- NOTE | 2022-09-03 08:10 | P.PCN ---
Date of Procedure: 09/03/22 Operative Findings: CARDIAC CATHETERIZATION PERFORMING PHYSICIAN: Barron Dick MD, RPVI PROCEDURE PERFORMED: 1. Selective right and left coronary angiogram 2. Left heart catheterization INDICATION: This is a 67-year-old female patient with multiple risk factors for CAD as well as history of stroke who was experiencing symptoms of chest pain and shortness of breath that she underwent myocardial perfusion imaging stress test and that came in to be abnormal showing anterior ischemia. In the light of that a heart catheterization was advised. COMPLICATION: None APPROACH: Right radial artery LEVEL OF SEDATION: Moderate with a sedation length of 21 minutes PROCEDURE DESCRIPTION: After obtaining an informed consent, the patient was brought to cardiac lab intern. Local anesthesia was performed using lidocaine subcutaneously. The right radial artery was cannulated using Seldinger technique, the guidewire passed easily, following that we advanced a 5-Belgian sheath dilator assembly, the wire and dilator were removed and sheath was flushed. Following that, 2 mg of verapamil along with 5000 unit heparin were given. Selective right and left coronary angiogram using a 6-Belgian JR3.5 and JL 3.5 catheters. Following that we did left heart catheterization using 6-Belgian pigtail catheter. The procedure was completed there was no complication. SELECTIVE CORONARY ANGIOGRAM: The right coronary artery: Large-caliber vessel and a dominant vessel. Its angiographically normal. Left main: Angiographically normal. Bifurcates into an LCx and LAD The left circumflex: Large caliber vessel nondominant vessel. Its angiographically normal. Gives rise into underwent branch which is a large caliber vessel appears to be angiographically normal The left anterior descending artery: Is angiographically normal. Gives rise into the first and second diagonal branches both appeared to be angiographically normal HEMODYNAMICS: The LVEDP was 14 mmHg was no significant gradient across aortic valve CONCLUSION: 1. Normal coronary angiogram 2. Normal left-sided filling pressure POSTPROCEDURE MANAGEMENT: Medical treatment and follow-up with the patient
[2022-09-03] MEDS ORDERED: SODIUM CHLORIDE 0.9% 1,000 ML IV SCH (08:15)
[2022-09-03] MEDS ORDERED: HYDROcodone/APAP 10-325MG 1 EACH TAB PO PRN (11:24)
[2022-09-03 14:43] VITALS: BP 108/67; PULSE 73
== END 2022-09-03 13:27 | disposition home or self-care (01) ==
LOC: CATHCVL 06:32
PROVIDERS: ATTEND Internal Medicine Interventional Cardiology
DX: I25.10 Atherosclerotic heart disease of native coronary artery without angina pectoris (principal); R06.02 Shortness of breath; E78.5 Hyperlipidemia, unspecified; I10 Essential (primary) hypertension; F17.200 Nicotine dependence, unspecified, uncomplicated; Z86.73 Personal history of transient ischemic attack (TIA), and cerebral infarction without residual deficits
CPT/HCPCS: 93458; C1769; C1894; J2250; J2001; J1644; J1170; Q9967

== ENCOUNTER → 2023-03-26 | Outpatient (CLI) | payer MEDICARE, OTHER ==
--- NOTE | 2023-03-26 11:14 | US ---
EXAMINATION TYPE: US carotid duplex BILAT DATE OF EXAM: 03/26/2023 COMPARISON: NONE CLINICAL INDICATION: Female, 68 years old with history of I65.23 CAROTID STENOSIS; stenosis TECHNIQUE: Carotid duplex ultrasound examination. Indirect Doppler criteria was utilized. FINDINGS: EXAM MEASUREMENTS: RIGHT: Peak Systolic Velocity (PSV) cm/sec ----- Right CCA: 120 ----- Right ICA: 97.9 ----- Right ECA: 77.9 ICA/CCA ratio: 0.8 RIGHT: End Diastole cm/sec ----- Right CCA: 29.9 ----- Right ICA: 25.4 ----- Right ECA: 14.5 LEFT: Peak Systolic Velocity (PSV) cm/sec ----- Left CCA: 91.8 ----- Left ICA: 84.9 ----- Left ECA: 86.1 ICA/CCA ratio: 0.9 LEFT: End Diastole cm/sec ----- Left CCA: 21.8 ----- Left ICA: 25.2 ----- Left ECA: 13.8 VERTEBRALS (direction of flow): Right Vertebral: Antegrade Left Vertebral: Antegrade Rhythm: Normal CLEARANCE CENTER MANAGER NOTES: No significant stenosis seen Pop scale images show no significant focal plaque. Velocity measurements and ratios are within zechariah l limits within the visualized portion of both internal carotid arteries. IMPRESSION: No hemodynamically significant stenosis in either internal carotid artery. Criteria for Assigning % of Stenosis / Diameter reduction (Estimation based on the indirect measurements of the internal carotid artery velocities (ICA PSV). 1. Normal (no stenosis)=ICA PSV < 125 cm/s: ratio < 2.0: ICA EDV<40 cm/s. 2. Less than 50% stenosis=ICA PSV < 125 cm/s: ratio < 2.0: ICA EDV<40 cm/s. 3. 50 to 69% stenosis=ICA PSV of 125 to 230 cm/s: ration 2.0 ? 4.0: ICA EDV 40-100 cm/s. 4. Greater than 70% stenosis to near occlusion= ICA PSV > 230 cm/s: ratio > 4.0: ICA EDV > 100 cm/s. 5. Near occlusion= ICA PSV velocities may be low or undetectable: variable ratio and ICA EDV. 6. Total occlusion=unable to detect flow.
== END | disposition home or self-care (01) ==
LOC: RADUSWWP 10:33
PROVIDERS: ATTEND Internal Medicine
DX: I65.23 Occlusion and stenosis of bilateral carotid arteries (principal)
CPT/HCPCS: 93880

== ENCOUNTER 2023-05-20 14:00 | Observation (INO) | payer MEDICARE, OTHER ==
--- NOTE | 2023-05-20 15:07 | ED ---
General Adult HPI - General Chief complaint: Neuro Symptoms/Deficit Stated complaint: tremors Time Seen by Provider: 05/20/23 15:06 Source: patient, EMS Mode of arrival: EMS - History of Present Illness Initial comments: Tova is a 68-year-old female who presents the ER today via ambulance for evaluation of tremor, generalized weakness, gait difficulty and inability to care for herself at home. Patient reports she's been developing a progressively worse tremor and weakness in her extremities over the past 4 months. She is began walking with a walker but is gone to a point where she has trouble caring for herself, beating herself dressing herself and keeping her house clean. Patient states that she's been very stressed about this and today her tremor seems much worse. She has weakness in her bilateral lower extremities difficulty lifting them off the bed difficulty walking. She called the ambulance to bring her to the hospital today because she doesn't feel capable of caring for herself and feels that she is at a point that needs placement in a care facility. Patient is followed with her primary care about these symptoms outpatient basis that she has been referred to neurology but has not had an appointment yet to establish care. She's had no neuro imaging. - Related Data Home Medications Medication Instructions Recorded Confirmed Losartan Potassium [Cozaar] 100 mg PO DAILY 10/16/21 03/02/23 Omeprazole 40 mg PO AC-BRKFST 10/16/21 03/02/23 Furosemide [Lasix] 20 mg PO DAILY 06/11/22 03/02/23 Albuterol Inhaler [Ventolin Hfa 1 - 2 puff INHALATION Q6H PRN 08/31/22 03/02/23 Inhaler] DULoxetine HCL [Cymbalta] 60 mg PO DAILY 08/31/22 03/02/23 Ergocalciferol [Vitamin D2 (1250 1,250 mcg PO WEEKLY 08/31/22 03/02/23 Mcg = 01003 Iu)] Gabapentin 300 mg PO TID 08/31/22 03/02/23 Metoprolol Succinate (ER) [Toprol 25 mg PO DAILY 08/31/22 03/02/23 XL] amLODIPine BESYLATE 5 mg PO DAILY 08/31/22 03/02/23 traZODone HCL 100 mg PO HS 08/31/22 03/02/23 Cetirizine HCl [Zyrtec] 10 mg PO DAILY PRN 12/17/22 03/02/23 HYDROcodone/APAP 10-325MG [[place] 1 tab PO Q6HR 12/22/22 03/02/23 10-325] Previous Rx's Medication Instructions Recorded Rosuvastatin [Crestor] 10 mg PO HS #30 tab 10/20/19 levETIRAcetam [Keppra] 500 mg PO BID #60 tab 10/20/19 Allergies Allergy/AdvReac Type Severity Reaction Status Date / Time nitrofurantoin AdvReac Abdominal Verified 03/02/23 11:31 [From Macrobid] Pain/Nausea/Vomiting NSAIDS (Non-Steroidal AdvReac Nausea & Verified 03/02/23 11:31 Anti-Inflamma Vomiting Review of Systems ROS Statement: Those systems with pertinent positive or pertinent negative responses have been documented in the HPI. ROS Other: All systems not noted in ROS Statement are negative. 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 hx. colon polyps, recent blood in stool History of Any Multi-Drug Resistant Organisms: None Reported Past Surgical History: Adenoidectomy, Back Surgery, Breast Surgery, Joint Replacement, Orthopedic Surgery, Tonsillectomy Additional Past Surgical History / Comment(s): LEFT HAND SURGERY, BILATERAL ORIF WRISTS , RIGHT GANGLION CYST REMOVED, LEEP, COLONOSCOPY, EGD, BILATERAL CATARACTS WITH LENS IMPLANTS, RIGHT BREAST BIOPSY, BACK SURGERY X2, ONE WAS A LAMINECTOMY, LEFT KNEE AND LEFT HIP REPLACEMENTS, PAIN INJECTION FOR BACK PAIN. Past Anesthesia/Blood Transfusion Reactions: No Reported Reaction Past Psychological History: Anxiety, Depression Smoking Status: Current every day smoker Past Alcohol Use History: Occasional Past Drug Use History: None Reported - Past Family History Brother(s) Family Medical History: Cancer Additional Family Medical History / Comment(s): PANCREATITIS. Mother Family Medical History: CVA/TIA, Deep Vein Thrombosis (DVT), Hypertension, Memory Impairment Additional Family Medical History / Comment(s): of Alzheimer's at age 70. Father Family Medical History: Coronary Artery Disease (CAD), CVA/TIA, Diabetes Mellitus, Hypertension Additional Family Medical History / Comment(s): at age 68. General Exam - General Exam Comments Initial Comments: Physical Exam GENERAL: Patient is well-developed and well-nourished. Patient has a head tremor, moving her head in a "yes" movement, this seems to be distractable and resolves while the patient is speaking HENT: Normocephalic, Atraumatic. EYES: PERRL, EOMI PULMONARY: Unlabored respirations. No audible rales rhonchi or wheezing was noted. CARDIOVASCULAR: There is a regular rate and rhythm without any murmurs gallops or rubs. ABDOMEN: Soft and nontender with normal bowel sounds. SKIN: Skin is clear with no lesions or rashes and otherwise unremarkable. : Deferred NEUROLOGIC: Patient is alert and oriented x3. Normal strength in upper extremities Decreased strength in lower extremities, will not lift legs off of bed MUSCULOSKELETAL: No edema or injury PSYCHIATRIC: Normal psychiatric evaluation. Course Vital Signs 05/20/23 14:02 Temperature 97.6 F Pulse Rate 81 Respiratory 18 Rate Blood Pressure 109/68 O2 Sat by Pulse 93 L Oximetry EKG Findings - EKG Comments: EKG Findings:: EKG was obtained as part of neuro workup, EKG was obtained at 1608 rate is 66 rhythm sinus with sinus arrhythmia and no acute ST elevations or depressions no evidence of acute ischemia or infarction. Medical Decision Making - Medical Decision Making Patient was seen and evaluated history is obtained from the patient. Patient with progressively worsening tremor inability to ambulate generalized weakness. Labs and head CT were obtained there was no significant abnormalities noted. CT does show old infarcts. Patient care was discussed with her primary care physician because the patient is unable to walk or care for herself at home she is not safe nor is she stable for discharge home. Primary care physician Dr. Hayward her was agreeable to plan for observation with the physical therapy and neurology consult. These orders were placed. Was pt. sent in by a medical professional or institution (, PA, INSPECTOR OF DREDGING, urgent care, hospital, or snf...) When possible be specific @ -No Did you speak to anyone other than the patient for history (EMS, parent, family, police, friend...)? What history was obtained from this source @ -No Did you review nursing and triage notes (agree or disagree)? Why? @ -I reviewed and agree with nursing and triage notes Were old charts reviewed (outside hosp., previous admission, EMS record, old EKG, old radiological studies, urgent care reports/EKG's, snf records)? Report findings @ -No old charts were reviewed Differential Diagnosis (chest pain, altered mental status, abdominal pain women, abdominal pain men, vaginal bleeding, weakness, fever, dyspnea, syncope, headache, dizziness, GI bleed, back pain, seizure, CVA, palpatations, mental health, musculoskeletal)? @ -Differential Weakness: Hypoglycemia, shock, sepsis, hyponatremia, anemia, infection, AL, ETOH, adverse medicine reaction, overdose, stroke, this is not meant to be an all-inclusive list. EKG interpreted by me (3pts min.). @ -As above X-rays interpreted by me (1pt min.). @ -None done CT interpreted by me (1pt min.). @ -No masses or intracranial bleeding U/S interpreted by me (1pt. min.). @ -None done What testing was considered but not performed or refused? (CT, X-rays, U/S, labs)? Why? @ -None What meds were considered but not given or refused? Why? @ -None Did you discuss the management of the patient with other professionals (professionals i.e. , PA, INSPECTOR OF DREDGING, lab, RT, psych nurse, social services designee, major assembler, teacher, chief lending officer, caseworker)? Give summary @ -No Was smoking cessation discussed for >3mins.? @ -No Was critical care preformed (if so, how long)? @ -No Were there social determinants of health that impacted care today? How? (Homelessness, low income, unemployed, alcoholism, drug addiction, transportation, low edu. Level, literacy, decrease access to med. care, mcc, re hab)? @ -Transportation, decrease access to medical care Was there de-escalation of care discussed even if they declined (Discuss DNR or withdrawal of care, Hospice)? DNR status @ -No What co-morbidities impacted this encounter? (DM, HTN, Smoking, COPD, CAD, Cancer, CVA, ARF, Chemo, Hep., AIDS, mental health diagnosis, sleep apnea, morbid obesity)? @ -None Was patient admitted / discharged? Hospital course, mention meds given and route, prescriptions, significant lab abnormalities, going to OR and other pertinent info. @ -Admitted Undiagnosed new problem with uncertain prognosis? @ -No Drug Therapy requiring intensive monitoring for toxicity (Heparin, Nitro, Insulin, Cardizem)? @ -No Were any procedures done? @ -No Diagnosis/symptom? @ -Weakness Acute, or Chronic, or Acute on Chronic? @ -On chronic Uncomplicated (without systemic symptoms) or Complicated (systemic symptoms)? @ -Complicated Side effects of treatment? @ -No Exacerbation, Progression, or Severe Exacerbation? @ -No Poses a threat to life or bodily function? How? (Chest pain, USA, AL, pneumonia, PE, COPD, DKA, ARF, appy, cholecystitis, CVA, Diverticulitis, Homicidal, Suicidal, threat to staff... and all critical care pts) @ -No - Lab Data Result diagrams: 05/20/23 15:59 05/20/23 15:59 Lab Results 05/20/23 05/20/23 05/20/23 Range/Units 15:59 15:59 15:59 WBC 6.8 (3.8-10.6) k/uL RBC 4.82 (3.80-5.40) m/uL Hgb 14.1 (11.4-16.0) gm/dL Hct 42.8 (34.0-46.0) % MCV 88.8 (80.0-100.0) fL MCH 29.3 (25.0-35.0) pg MCHC 33.0 (31.0-37.0) g/dL RDW 16.1 H (11.5-15.5) % Plt Count 219 (150-450) k/uL MPV 7.4 Neutrophils % 54 % Lymphocytes % 33 % Monocytes % 8 % Eosinophils % 2 % Basophils % 1 % Neutrophils # 3.7 (1.3-7.7) k/uL Lymphocytes # 2.3 (1.0-4.8) k/uL Monocytes # 0.5 (0-1.0) k/uL Eosinophils # 0.1 (0-0.7) k/uL Basophils # 0.0 (0-0.2) k/uL Anisocytosis Slight PT 10.6 (9.0-12.0) sec INR 1.0 (<1.2) APTT 26.2 (22.0-30.0) sec Sodium 135 L (137-145) mmol/L Potassium 4.5 (3.5-5.1) mmol/L Chloride 100 (98-107) mmol/L Carbon Dioxide 28 (22-30) mmol/L Anion Gap 7 mmol/L BUN 12 (7-17) mg/dL Creatinine 0.63 (0.52-1.04) mg/dL Est GFR (CKD-EPI)AfAm >90 (>60 ml/min/1.73 sqM) Est GFR (CKD-EPI)NonAf >90 (>60 ml/min/1.73 sqM) Glucose 96 (74-99) mg/dL Calcium 9.1 (8.4-10.2) mg/dL Magnesium 2.1 (1.6-2.3) mg/dL Total Bilirubin 0.5 (0.2-1.3) mg/dL AST 24 (14-36) U/L ALT 18 (4-34) U/L Alkaline Phosphatase 69 (38-126) U/L Creatine Kinase 42 (30-135) U/L Total Protein 7.0 (6.3-8.2) g/dL Albumin 4.1 (3.5-5.0) g/dL Disposition Clinical Impression: Generalized weakness, Tremor Disposition: ADMITTED IP TO THIS [facility] Condition: Stable Is patient prescribed a controlled substance at d/c from ED?: No Referrals: Yanni Mxa MD [Primary Care Provider] - 1-2 days
[2023-05-20] MEDS ORDERED: SODIUM CHLORIDE 0.9% 1,000 ML IV STA (15:46)
[2023-05-20] MEDS ORDERED: LORazepam 2 MG/ML INJ IV STA (16:03)
[2023-05-20 16:32] LABS: Anisocytosis Slight; Basophils % (A) 1 %; Eosinophils # (A) 0.1 k/uL (0-0.7); Eosinophils % (A) 2 %; HCT 42.8 % (34.0-46.0); HGB 14.1 gm/dL (11.4-16.0); Lymphocytes # (A) 2.3 k/uL (1.0-4.8); Lymphocytes % (A) 33 %; MCH 29.3 pg (25.0-35.0); MCV 88.8 fL (80.0-100.0); Mean Platelet Volume 7.4; Monocytes # (A) 0.5 k/uL (0-1.0); Monocytes % (A) 8 %; Neutrophils # (A) 3.7 k/uL (1.3-7.7); Neutrophils % (A) 54 %; Platelet Count 219 k/uL (150-450); RBC 4.82 m/uL (3.80-5.40); RDW 16.1 % (11.5-15.5); WBC 6.8 k/uL (3.8-10.6)
--- NOTE | 2023-05-20 16:40 | XR ---
EXAMINATION TYPE: XR chest 2V DATE OF EXAM: 05/20/2023 4:36 PM COMPARISON: Chest radiographs from 06/14/2022 TECHNIQUE: XR chest 2V Frontal and lateral views of the chest. CLINICAL INDICATION:Female, 68 years old with history of altered mental status; FINDINGS: Lungs/Pleura: Prominent interstitial lung markings are seen scattered throughout the lungs. No eviden ce of focal consolidation, pneumothorax or pleural effusion. Pulmonary vascularity: Unremarkable. Heart/mediastinum: Cardiomediastinal silhouette is unremarkable. Musculoskeletal: No acute osseous pathology. Chronic deformity to the right proximal humerus. IMPRESSION: No acute cardiopulmonary disease/process.
[2023-05-20 16:43] LABS: ALT 18 U/L (4-34); AST 24 U/L (14-36); African American GFR (CKD) >90 (>60 ml/min/1.73 sqM); Albumin 4.1 g/dL (3.5-5.0); Alkaline Phosphatase 69 U/L (38-126); Anion Gap 7 mmol/L; Blood Urea Nitrogen 12 mg/dL (7-17); Calcium 9.1 mg/dL (8.4-10.2); Carbon Dioxide 28 mmol/L (22-30); Chloride 100 mmol/L (98-107); Creatine Kinase 42 U/L (30-135); Glucose 96 mg/dL (74-99); Magnesium 2.1 mg/dL (1.6-2.3); Non-African American GFR(CKD) >90 (>60 ml/min/1.73 sqM); Potassium 4.5 mmol/L (3.5-5.1); Sodium 135 mmol/L (137-145); Total Bilirubin 0.5 mg/dL (0.2-1.3)
--- NOTE | 2023-05-20 16:53 | CT ---
EXAMINATION TYPE: CT brain wo con CT DLP: 1181.4 mGycm, Automated exposure control for dose reduction was used. DATE OF EXAM: 05/20/2023 4:44 PM COMPARISON: 10/17/2021. CLINICAL INDICATION:Female, 68 years old with history of tremors, weakness, Tremors, weakness TECHNIQUE: Brain: Axial CT images of the brain were obtained with coronal and sagittal reformats created and rev iewed. Contrast used: None. Oral contrast used: None. FINDINGS: Brain: Extra-axial spaces: No abnormal extra-axial fluid collections. Ventricular system: Within normal limits Cerebral parenchyma: Remote injury to the bilateral parietal regions an right occipital lobe. No acut e intraparenchymal hemorrhage or mass effect. The dumont-white junction is well differentiated. Cerebellum: Unremarkable. Mass effect: No evidence of midline shift. Intracranial vasculature: Atherosclerotic calcifications of the intracranial vessels. Soft tissues: Normal. Calvarium/osseous structures: No depressed skull fracture. Paranasal sinuses and mastoid air cells: Mild scattered paranasal sinus disease. Visualized orbits: Bilateral aphakia IMPRESSION: 1. No acute intracranial process. 2. Remote injuries to the bilateral parietal lobes and right occipital lobe.
[2023-05-20 16:54] LABS: Partial Thromboplastin Time 26.2 sec (22.0-30.0); Prothrombin Time 10.6 sec (9.0-12.0)
[2023-05-20] MEDS ORDERED: NALOXONE 0.4 MG/ML 1 ML VIAL IV PRN (17:30)
[2023-05-20] MEDS ORDERED: ALBUTEROL NEBULIZED 2.5 MG/3 ML INHALATION PRN (19:13)
[2023-05-20] MEDS ORDERED: CLOTRIMAZOLE/BETAMETH 1-0.05% CREAM 45 GM TUBE TOPICAL PRN (19:13)
[2023-05-20] MEDS ORDERED: LORATADINE 10 MG TAB PO PRN (19:13)
[2023-05-20] MEDS: LOSARTAN 50 MG TAB PO SCH (19:58)
[2023-05-20] MEDS: HYDROcodone/APAP 10-325MG 1 EACH TAB PO SCH (19:58)
[2023-05-20] MEDS: METOPROLOL SUCCINATE (ER) 25 MG TAB.ER.24H PO SCH ×2 (19:58→19:59)
[2023-05-20] MEDS: ARIPiprazole 2 MG TAB PO SCH (20:00)
[2023-05-20] MEDS ORDERED: ERGOCALCIFEROL 1,250 MCG (50,000 IU) CAPSULE PO SCH (20:00)
[2023-05-20] MEDS: FUROSEMIDE 40 MG TAB PO SCH (20:56)
[2023-05-20] MEDS: traZODone HCL 100 MG TAB PO SCH (20:57)
[2023-05-20] MEDS: levETIRAcetam 500 MG TAB PO SCH (20:57)
[2023-05-20] MEDS: GABAPENTIN 300 MG CAP PO SCH (20:57)
[2023-05-20] MEDS: ATORVASTATIN 20 MG TAB PO SCH (20:57)
[2023-05-21] MEDS: HYDROcodone/APAP 10-325MG 1 EACH TAB PO SCH ×4 (00:50→17:44)
[2023-05-21] MEDS: PANTOPRAZOLE 40 MG TABLET PO SCH (05:32)
[2023-05-21] MEDS: ARIPiprazole 2 MG TAB PO SCH (08:40)
[2023-05-21] MEDS: FUROSEMIDE 40 MG TAB PO SCH ×3 (08:40→15:52)
[2023-05-21] MEDS: LOSARTAN 50 MG TAB PO SCH (08:40)
[2023-05-21] MEDS: amLODIPine 5 MG TAB PO SCH (08:40)
[2023-05-21] MEDS: GABAPENTIN 300 MG CAP PO SCH ×3 (08:40→22:21)
[2023-05-21] MEDS: METOPROLOL SUCCINATE (ER) 25 MG TAB.ER.24H PO SCH (08:40)
[2023-05-21] MEDS: DULoxetine HCL 60 MG CAPSULE.DR PO SCH (08:40)
[2023-05-21] MEDS: levETIRAcetam 500 MG TAB PO SCH ×2 (08:40→22:22)
[2023-05-21] MEDS: ENOXAPARIN 40 MG/0.4 ML SYRINGE SQ SCH (08:44)
[2023-05-21] MEDS: methocarbamoL 500 MG TAB PO PRN (09:01)
[2023-05-21] MEDS ORDERED: LORazepam 0.5 MG TAB PO PRN (09:05)
[2023-05-21] MEDS: HYDROmorphone 0.5 MG/0.5 ML SYRINGE IVP PRN ×3 (09:17→23:14)
--- NOTE | 2023-05-21 12:39 | P.HPIM ---
History of Present Illness H&P Date: 05/20/23 HISTORY OF PRESENT ILLNESS: This is a 68-year-old female one of my patient with a previous medical history significant for hypertension and hypertensive cardiovascular disease, hyperlipidemia, GERD, seizure disorder, ALLERGIC rhinitis, vitamin D deficiency, osteoporosis with multiple fractures, depressive disorder with psychotic features. Patient presented to the hospital due to worsening tremor, generalized weakness, gait dysfunction and inability to care for herself. Patient's tremor and weakness have been gradually worsening over the past 4 months. She has transitioned to using a walker and even having trouble with this unable to dress herself and etc. She has increasing weakness and bilateral lower extremities which is causing her difficulty in ambulation. CBC and CMP u nremarkable. CAT scan of brain revealed no acute intracranial process. Remote injuries to the bilateral parietal lobes and right occipital lobe. Chest x-ray no acute cardiopulmonary process. Patient has been placed in the observation unit and consult requested with psychiatry and neurology. REVIEW OF SYSTEMS: Constitutional: No documented fever, no chills, no night sweats. No weight change. Reports weakness, Reports fatigue. No daytime sleepiness. HEENT: No headache. No blurred vision or double vision, no loss of vision. No loss of Hearing, no ringing in the ears, no dizziness. No nasal drainage or congestion. No epistaxis. No sore throat. Lungs: No shortness of breath, no cough, no sputum production. No wheezing. Reports dyspnea with activity. Cardiovascular: Reported chest painresolved, no lower extremity edema. No palpitations. No paroxysmal nocturnal dyspnea. No orthopnea. No lightheadedness or dizziness. No syncopal episodes. Abdominal: Reports abdominal pain. No nausea, vomiting. No diarrhea. No constipation. No bloody or tarry stools reports loss of appetite. Genitourinary: No dysuria, increased frequency, urgency. No urinary retention. Musculoskeletal: No myalgias. Reports muscle weakness, positive for gait dysfunction, positive for frequent falls. positive for back pain and neck pain. Reports worsening lower extremity weakness. Integumentary: No wounds, no lesions. No rash or pruritus. No unusual bruising. No change in hair or nails. Neurologic: No aphasia. No facial droop. No change in mentation. No head injury. No headache. No paralysis. No paresthesia. Reports worsening tremor Psychiatric: positive for depression. Reports psychosis, reports anxiety. No mood swings. Endocrine: No abnormal blood sugars. No weight change. PAST MEDICAL HISTORY: Hypertension and hypertensive cardiovascular disease Hyperlipidemia. GERD. Seizure. Osteoporosis. Vitamin D deficiency. ALLERGIC rhinitis. Recurrent falls . Depressive disorder with psychotic feature History of ADEM. 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 Left knee replacement. Right hip replacement. SOCIAL HISTORY: Patient smokes about a pack every day she continues to smoke despite multiple a ttempts to quit smoking, she is not ready to quit smoking, she denies any alcohol ingestion, no drug abuse. She lives alone and she has a walker and she has a caregiver that check on her once in a while. FAMILY HISTORY: Father at age of 69 from stroke and had history of hypertension, mother at the age of 71 from dementia, stroke, and hypertension, patient had 2 brothers one of them from pancreatic cancer and overdose. PHYSICAL EXAMINATION: General: 68-year-old female laying down in bed in no distress, slightly anxious. HEENT: Head is atraumatic, normocephalic, pupils were equal round reactive to light and recommendation, extraocular muscle movement were intact, sclera nonicteric, conjunctivae were pale, mucous membranes of the mouth are somewhat dry. Neck: Supple, no JVP, normal carotid upstroke bilaterally, no lymphadenopathy. Chest: Decreased breath sounds at the bases, few rhonchi, minimal expiratory wheezes, no chest wall tenderness, no intercostal retractions. Heart: First heart sound is normal, second heart sounds normal there is systolic ejection murmur 2/6 located in the left sternal border. Abdomen: Soft, nontender, nondistended, positive bowel sounds. Extremities: There is no edema no calf tenderness DP +2 bilaterally. Neurologic examination: Patient is awake alert and oriented X 3, cranial nerves II-12 appear grossly intact, muscle power were 5 out of 5 in upper extremities and 4 out of 5 in bilateral lower extremities, deep tendon reflexes normal bilaterally, tremor not observed ASSESSMENT AND PLAN: 1. Increasing weakness, tremor and inability to ambulate . patient was supposed to get to an AFC vs ECF which was not done . we will consult PT/OT and social science analyst for discharge planing, also we will Consult with psychiatry and neurology, recommendations were noted to discontinue Abilify and start Cogentin 0.5 mg po qhs and decrease Cymbalta 60 mg in AM and 30mg in PM 2. Worsening depression with psychotic features we will continue with Duloxetine 60 mg in Am and 30 mg in PM , off Abilify. 3. Hypertension and hypertensive cardiovascular disease. Continue losartan 100 mg orally once every day, Amlodipine 5 mg po daily along with Metoprolol 25 mg po daily monitor blood pressure very closely. 4. Hyperlipidemia. Continue Atorvastatin 20 mg orally once every day, monitor lipid panel, keep LDL 55-70. 5. GERD. Continue Protonix 40 mg po daily 6. Vitamin D deficiency. Continue vitamin D supplement once every week. 7. ALLERGIC rhinitis. Continue patient on Zyrtec 10 mg orally once every day. 8. Seizure disorder. Continue Keppra 500 mg twice daily. 9. Chronic pain syndrome. we will continue with current pain management 10 Spondylosis of the Lumbar spine post back surgery. we will continue with [place], Gabapentin and Methocarbamol as needed.we will keep Dilaudid as needed for severe pain 11. DVT prophylaxis. we will continue with Lovenox 40 mg po daily 12 GI prophylaxis. Continue PPI. 13. Patient placed as an observation status. 14. Full code. 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 hx. colon polyps, recent blood in stool History of Any Multi-Drug Resistant Organisms: None Reported Past Surgical History: Adenoidectomy, Back Surgery, Breast Surgery, Joint Replacement, Orthopedic Surgery, Tonsillectomy Additional Past Surgical History / Comment(s): LEFT HAND SURGERY, BILATERAL ORIF WRISTS , RIGHT GANGLION CYST REMOVED, LEEP, COLONOSCOPY, EGD, BILATERAL CATARACTS WITH LENS IMPLANTS, RIGHT BREAST BIOPSY, BACK SURGERY X2, ONE WAS A LAMINECTOMY, LEFT KNEE AND LEFT HIP REPLACEMENTS, PAIN INJECTION FOR BACK PAIN. Past Anesthesia/Blood Transfusion Reactions: No Reported Reaction Past Psychological History: Anxiety, Depression Smoking Status: Current every day smoker Past Alcohol Use History: Occasional Past Drug Use History: None Reported - Past Family History Brother(s) Family Medical History: Cancer Additional Family Medical History / Comment(s): PANCREATITIS. Mother Family Medical History: CVA/TIA, Deep Vein Thrombosis (DVT), Hypertension, Memor y Impairment Additional Family Medical History / Comment(s): of Alzheimer's at age 70. Father Family Medical History: Coronary Artery Disease (CAD), CVA/TIA, Diabetes Mellitus, Hypertension Additional Family Medical History / Comment(s): at age 68. Medications and Allergies Home Medications Medication Instructions Recorded Confirmed Type Rosuvastatin [Crestor] 10 mg PO HS #30 tab 10/20/19 05/20/23 Rx levETIRAcetam [Keppra] 500 mg PO BID #60 tab 10/20/19 05/20/23 Rx Losartan Potassium [Cozaar] 100 mg PO DAILY 10/16/21 05/20/23 History Omeprazole 40 mg PO AC-BRKFST 10/16/21 05/20/23 History Albuterol Inhaler [Ventolin Hfa 1 - 2 puff INHALATION RT-Q6H PRN 08/31/22 05/20/23 History Inhaler] DULoxetine HCL [Cymbalta] 60 mg PO DAILY 08/31/22 05/20/23 History Ergocalciferol [Vitamin D2 (1250 1,250 mcg PO Q7D 08/31/22 05/20/23 History Mcg = 09846 Iu)] Gabapentin 300 mg PO TID 08/31/22 05/20/23 History Metoprolol Succinate (ER) [Toprol 25 mg PO DAILY 08/31/22 05/20/23 History XL] amLODIPine BESYLATE 5 mg PO DAILY 08/31/22 05/20/23 History traZODone HCL 100 mg PO HS 08/31/22 05/20/23 History Cetirizine HCl [Zyrtec] 10 mg PO DAILY PRN 12/17/22 05/20/23 History HYDROcodone/APAP 10-325MG [[place] 1 tab PO Q6HR 12/22/22 05/20/23 History 10-325] ARIPiprazole [Abilify] 2 mg PO DAILY 05/20/23 05/21/23 History Clotrimazole/Betameth Cream 1 applic TOPICAL BID PRN 05/20/23 05/20/23 History [Lotrisone] Furosemide [Lasix] 40 mg PO BID 05/20/23 05/20/23 History methocarbamoL [Methocarbamol] 500 mg PO TID PRN 05/20/23 05/20/23 History tiZANidine [Zanaflex] 4 mg PO Q8HR PRN 05/20/23 05/20/23 History Allergies Allergy/AdvReac Type Severity Reaction Status Date / Time nitrofurantoin AdvReac Abdominal Verified 03/02/23 11:31 [From Macrobid] Pain/Nausea/Vomiting NSAIDS (Non-Steroidal AdvReac Nausea & Verified 03/02/23 11:31 Anti-Inflamma Vomiting Physical Exam Vitals: Vital Signs Temp Pulse Resp BP Pulse Ox 05/20/23 18:14 61 18 120/70 92 L 05/20/23 17:11 98.1 F 81 16 128/70 96 05/20/23 16:11 98.2 F 78 16 123/77 96 05/20/23 15:11 98 F 80 16 112/77 96 05/20/23 14:02 97.6 F 81 18 109/68 93 L Intake and Output 05/20/23 05/20/23 05/20/23 06:59 14:59 22:59 Other: Weight 86.183 kg Results CBC & Chem 7: 05/20/23 15:59 05/20/23 15:59 Labs: Abnormal Lab Results - Last 24 Hours (Table) 05/20/23 05/20/23 Range/Units 15:59 15:59 RDW 16.1 H (11.5-15.5) % Sodium 135 L (137-145) mmol/L
--- NOTE | 2023-05-21 13:38 | P.CN ---
Psychiatric Consult - . Consult date: 05/21/23 Consult:: 05/21/23 13:37 IDENTIFYING DATA: This patient is a single, unemployed, 68-year-old female with significant history of depression and seizure disorder who presented to our hospital on 05/20/2023 with a chief complaint of worsening tremors and depression. HISTORY OF PRESENT ILLNESS: The patient presented to the hospital on 05/20/2023, presenting with concern for worsening tremor, generalized weakness, and poor gait. The patient reported that her tremor has been worsening over the past 4 months. She describes his tremor as constant movement and a lecture shocks along her back, legs, and especially around her neck. Psychiatry has been consulted for evaluation of tremor and for depression. Upon evaluation by this provider, the patient reports that her tremors, and ongoing for the past 4 months. However, the patient appears to display this "tremor" intermittently and when distracted, the "tremor" disappears. She reports that these tremors cause her significant pain. She states that it is o nly when her pain is managed and that she is on Ativan and that she is no longer experiencing these tremors. In regards to her psychiatric symptoms, the patient reports that she is depressed however is not endorsing any suicidal or homicidal ideation, intention, and/or plan. She is not reporting any auditory or visual hallucinations. She denies any paranoia or other delusions. The patient states that these tremors occur out of the blue, at rest, and when she is even alone. She reports no issues regarding her sleep or her appetite. She denies any issues regarding her hygiene and grooming. In regards to her psychiatric medications, the patient reports that she was recently restarted back on her Abilify. She reports that she has been adherent with her other medications. 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 Her current home medication regimen includes Abilify and Cymbalta. She was previously on Abilify maintena in the past. She was last hospitalized on our psychiatric unit in May 2022 for psychosis. She currently follows up with her outpatient primary care physician for her psychiatric care as well. Patient denies any history of suicide attempts in the past. PAST MEDICAL HISTORY: Past Medical History: Asthma, CVA/TIA, Eye Disorder, Fibromyalgia, GERD/Reflux, Hyperlipidemia, Hypertension, Memory Impairment, Musculoskeletal Disorder, Osteoarthritis (OA), Seizure Disorder Additional Past Medical History / Comment(s): 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 hx. colon polyps, recent blood in stool History of Any Multi-Drug Resistant Organisms: None Reported Past Surgical History: Adenoidectomy, Back Surgery, Breast Surgery, Joint Replacement, Orthopedic Surgery, Tonsillectomy Additional Past Surgical History / Comment(s): LEFT HAND SURGERY, BILATERAL ORIF WRISTS , RIGHT GANGLION CYST REMOVED, LEEP, COLONOSCOPY, EGD, BILATERAL CATARACTS WITH LENS IMPLANTS, RIGHT BREAST BIOPSY, BACK SURGERY X2, ONE WAS A LAMINECTOMY, LEFT KNEE AND LEFT HIP REPLACEMENTS, PAIN INJECTION FOR BACK PAIN. Past Anesthesia/Blood Transfusion Reactions: No Reported Reaction Past Psychological History: Anxiety, Depression Smoking Status: Current every day smoker Past Alcohol Use History: Occasional Past Drug Use History: None Reported ALLERGIES: Allergies Allergy/AdvReac Type Severity Reaction Status Date / Time nitrofurantoin AdvReac Abdominal Verified 03/02/23 11:31 [From Macrobid] Pain/Nausea/Vomiting NSAIDS (Non-Steroidal AdvReac Nausea & Verified 03/02/23 11:31 Anti-Inflamma Vomiting CHEMICAL DEPENDENCY HISTORY: Patient smokes approximately 1 pack per day. She reports no alcohol or illicit drug use. She denies any marijuana use. She is chronically prescribed opiates. FAMILY PSYCHIATRIC/SUBSTANCE USE HISTORY: Reportedly, the patient's father of drug overdose mother reportedly had dementia. SOCIAL HISTORY: Patient was born in [place], [place] and raised in [place]. Patient lived in [place] for a short time before returning to [place]. She reports that she is single however during her last psychiatric evaluation reported that she was . She has no children. She was alone in her apartment. MENTAL STATUS EXAM: General Appearance: Patient appears to be stated age is alert, pleasant, and cooperative. Patient appears to have slightly disheveled hygiene and grooming wearing hospital gown with fair eye contact. Behavior: Patient is seated upright in her bed and displays bizarre "rocking back and forth behavior" that ceases when she is distracted. Furthermore, when she did not display any tremulousness when ambulating without knowledge of the provider observing her. Speech: Patient's speech is fluent and nonpressured. Mood/Affect: Patient reports their mood is "depressed", affect is incongruent and appears to be euthymic. Suicidality/Homicidality: Patient reports no suicidal or homicidal ideation. Perceptions: Patient denies any visual hallucinations and denies any auditory hallucinations Though content/process: Fixated on medications. Memory and concentration: AOX3, grossly intact for the purposes of this session. 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 Patient is not presenting with imminent risk of harm to self or others. She is not overtly manic or psychotic. -Delirium precautions recommended with patient including - avoiding use of narcotics and [employer] sedatives, limit anticholinergic medications when possible, frequent re-orientation, minimize use of restraints, open window shades during the day and close them at night -Would recommend the following medication changes/additions: We will increase the patient's Cymbalta to 60 mg in the morning and 30 mg at bedtime for management of depression and neuropathic pain We will discontinue Abilify due to concerns for akathisia. We will start Cogentin 0.5 mg daily at bedtime to address EPS -Suspected to patient's presentation is secondary to a psychogenic dependence on medications. She appears to have control over these "tremors" and the season the patient is distracted or not directly observed. This provider attempted to provide the patient psychoeducation in regards to psychogenic dependence on medications however she is precontemplative at this time. -Patient is psychiatrically cleared for discharge. Recommend outpatient psychiatric follow-up. -Psychiatry will loosely follow at this time, please contact with any questions. Vital Signs Temp 97.6 F 05/21/23 07:00 Pulse 70 05/21/23 08:00 Resp 16 05/21/23 08:00 BP 118/60 05/21/23 07:00 Pulse Ox 91 L 05/21/23 07:00 FiO2 Intake & Output 05/20/23 05/21/23 05/21/23 18:59 06:59 18:59 Weight 86.183 kg 86.183 kg Other: Voiding Method Toilet Toilet # Voids 0 Laboratory Results WBC 6.8 k/uL (3.8-10.6) 05/20/23 15:59 RBC 4.82 m/uL (3.80-5.40) 05/20/23 15:59 Hgb 14.1 gm/dL (11.4-16.0) 05/20/23 15:59 Hct 42.8 % (34.0-46.0) 05/20/23 15:59 MCV 88.8 fL (80.0-100.0) 05/20/23 15:59 MCH 29.3 pg (25.0-35.0) 05/20/23 15:59 MCHC 33.0 g/dL (31.0-37.0) 05/20/23 15:59 RDW 16.1 % (11.5-15.5) H 05/20/23 15:59 Plt Count 219 k/uL (150-450) 05/20/23 15:59 MPV 7.4 05/20/23 15:59 Neutrophils % 54 % 05/20/23 15:59 Lymphocytes % 33 % 05/20/23 15:59 Monocytes % 8 % 05/20/23 15:59 Eosinophils % 2 % 05/20/23 15:59 Basophils % 1 % 05/20/23 15:59 Neutrophils # 3.7 k/uL (1.3-7.7) 05/20/23 15:59 Lymphocytes # 2.3 k/uL (1.0-4.8) 05/20/23 15:59 Monocytes # 0.5 k/uL (0-1.0) 05/20/23 15:59 Eosinophils # 0.1 k/uL (0-0.7) 05/20/23 15:59 Basophils # 0.0 k/uL (0-0.2) 05/20/23 15:59 Anisocytosis Slight 05/20/23 15:59 PT 10.6 sec (9.0-12.0) 05/20/23 15:59 INR 1.0 (<1.2) 05/20/23 15:59 APTT 26.2 sec (22.0-30.0) 05/20/23 15:59 Sodium 135 mmol/L (137-145) L 05/20/23 15:59 Potassium 4.5 mmol/L (3.5-5.1) 05/20/23 15:59 Chloride 100 mmol/L (98-107) 05/20/23 15:59 Carbon Dioxide 28 mmol/L (22-30) 05/20/23 15:59 Anion Gap 7 mmol/L 05/20/23 15:59 BUN 12 mg/dL (7-17) 05/20/23 15:59 Creatinine 0.63 mg/dL (0.52-1.04) 05/20/23 15:59 Est GFR (CKD-EPI)AfAm >90 (>60 ml/min/1.73 sqM) 05/20/23 15:59 Est GFR (CKD-EPI)NonAf >90 (>60 ml/min/1.73 sqM) 05/20/23 15:59 Glucose 96 mg/dL (74-99) 05/20/23 15:59 Calcium 9.1 mg/dL (8.4-10.2) 05/20/23 15:59 Magnesium 2.1 mg/dL (1.6-2.3) 05/20/23 15:59 Total Bilirubin 0.5 mg/dL (0.2-1.3) 05/20/23 15:59 AST 24 U/L (14-36) 05/20/23 15:59 ALT 18 U/L (4-34) 05/20/23 15:59 Alkaline Phosphatase 69 U/L (38-126) 05/20/23 15:59 Creatine Kinase 42 U/L (30-135) 05/20/23 15:59 Total Protein 7.0 g/dL (6.3-8.2) 05/20/23 15:59 Albumin 4.1 g/dL (3.5-5.0) 05/20/23 15:59 05/21/23 13:38
--- NOTE | 2023-05-21 14:16 | P.PN ---
Subjective Progress Note Date: 05/21/23 HISTORY OF PRESENT ILLNESS: This is a 67-year-old female one of my patient with a previous medical history significant for hypertension and hypertensive cardiovascular disease, hyperlipidemia, GERD, seizure disorder, ALLERGIC rhinitis, vitamin D deficiency, osteoporosis with multiple fractures, depressive disorder with psychotic features. Patient presented to the hospital due to worsening tremor, generalized weakness, gait dysfunction and inability to care for herself. Patient's tremor and weakness have been gradually worsening over the past 4 months. She has transitioned to using a walker and even having trouble with this unable to dress herself and etc. She has increasing weakness and bilateral lower extremities which is causing her difficulty in ambulation. CBC and CMP unremarkable. CAT scan of brain revealed no acute intracranial process. Remote injuries to the bilateral parietal lobes and right occipital lobe. Chest x-ray no acute cardiopulmonary process. Patient has been placed in the observation unit and consult requested with psychiatry and neurology. 05/21: Patient is seen in follow-up. Consults in place with psychiatry and neurology. Cogentin increased Cymbalta, discontinued Abilify Patient had complaints of uncontrolled pain this morning to her nurse and Dilaudid 0.5 mg IV every 6 hours has been added. Patient also on lorazepam 0.5 mg oral twice daily as needed for anxiety. Blood pressure 118/60, heart rate in the 70s. Patient has been seen by physical therapy with recommendations for home with home care for subacute rehab. Patient states she is not interested in going home with home care. She wants subacute rehab. Consult to social work to be placed. REVIEW OF SYSTEMS: Constitutional: No documented fever, no chills, no night sweats. No weight change. Reports weakness, Reports fatigue. No daytime sleepiness. HEENT: No headache. No blurred vision or double vision, no loss of vision. No loss of Hearing, no ringing in the ears, no dizziness. No nasal drainage or congestion. No epistaxis. No sore throat. Lungs: No shortness of breath, no cough, no sputum production. No wheezing. Reports dyspnea with activity. Cardiovascular: Reported chest painresolved, no lower extremity edema. No palpitations. No paroxysmal nocturnal dyspnea. No orthopnea. No lightheadedness or dizziness. No syncopal episodes. Abdominal: Reports abdominal pain. No nausea, vomiting. No diarrhea. No constipation. No bloody or tarry stools reports loss of appetite. Genitourinary: No dysuria, increased frequency, urgency. No urinary retention. Musculoskeletal: No myalgias. Reports muscle weakness, positive for gait dysfunction, positive for frequent falls. positive for back pain and neck pain. Reports worsening lower extremity weakness. Integumentary: No wounds, no lesions. No rash or pruritus. No unusual bruising. No change in hair or nails. Neurologic: No aphasia. No facial droop. No change in mentation. No head injury. No headache. No paralysis. No paresthesia. Reports worsening tremor Psychiatric: positive for depression. Reports psychosis, reports anxiety. No mood swings. Endocrine: No abnormal blood sugars. No weight change. PHYSICAL EXAMINATION: General: 67-year-old female laying down in bed in no distress, slightly anxious. HEENT: Head is atraumatic, normocephalic, pupils were equal round reactive to light and recommendation, extraocular muscle movement were intact, sclera nonicteric, conjunctivae were pale, mucous membranes of the mouth are somewhat dry. Neck: Supple, no JVP, normal carotid upstroke bilaterally, no lymphadenopathy. Chest: Decreased breath sounds at the bases, few rhonchi, minimal expiratory wheezes, no chest wall tenderness, no intercostal retractions. Heart: First heart sound is normal, second heart sounds normal there is systolic ejection murmur 2/6 located in the left sternal border. Abdomen: Soft, nontender, nondistended, positive bowel sounds. Extremities: There is no edema no calf tenderness DP +2 bilaterally. Neurologic examination: Patient is awake alert and oriented X 3, cranial nerves II-12 appear grossly intact, muscle power were 5 out of 5 in upper extremities and 5 out of 5 in bilateral lower extremities, deep tendon reflexes normal bilaterally. ASSESSMENT AND PLAN: 1. Increasing weakness, tremor. Consult with psychiatry and neurology appreciated. Patient has been started on Cogentin per psychiatry, increased Cymbalta and discontinued Abilify. Consult and treatment with physical therapy. 2. Worsening depression. Consult with psychiatry. 3. Hypertension and hypertensive cardiovascular disease. Continue losartan 100 mg orally once every day, Lasix 40 mg twice daily, monitor blood pressure very closely. 4. Hyperlipidemia. Continue rosuvastatin 10 mg orally once every day, monitor lipid panel, keep LDL 55-70. 5. GERD. Continue PPI. 6. Vitamin D deficiency. Continue vitamin D supplement once every week. 7. ALLERGIC rhinitis. Continue patient on Zyrtec 10 mg orally once every day. 8. Seizure disorder. Continue Keppra 500 mg twice daily. 9. DVT prophylaxis. Heparin 5000 units subcutaneously every 8 hours . 10 GI prophylaxis. Continue PPI. 11. Patient placed as an observation status. 12. Full code. Impression and plan of care have been directed as dictated by the signing physician. Marzena Duckworth nurse practitioner acting as scribe for signing physician. Objective - Vital Signs Vital signs: Vital Signs Temp 97.6 F 05/21/23 07:00 Pulse 70 05/21/23 08:00 Resp 16 05/21/23 08:00 BP 118/60 05/21/23 07:00 Pulse Ox 91 L 05/21/23 07:00 FiO2 Intake & Output 05/20/23 05/21/23 05/21/23 18:59 06:59 18:59 Weight 86.183 kg 86.183 kg Other: Voiding Method Toilet Toilet # Voids 0 - Labs CBC & Chem 7: 05/20/23 15:59 05/20/23 15:59 Labs: Abnormal Lab Results - Last 24 Hours (Table) 05/20/23 05/20/23 Range/Units 15:59 15:59 RDW 16.1 H (11.5-15.5) % Sodium 135 L (137-145) mmol/L
--- NOTE | 2023-05-21 18:43 | P.CNNES ---
History of Present Illness Consult date: 05/21/23 Requesting physician: Rafaela Bowman Reason for Consult: Tremor, difficulty walking History of Present Illness: Patient is a 68-year-old female with history of remote ADEM, with subsequent memory disturbance, came to the hospital by ambulance yesterday at 2 PM for increased frequency of tremors. Patient says that she has been having tremors for the last 4 months, it comes and goes. It increased or got worse in the last couple months. Patient states the tremors was significant bothering her yesterday, therefore she came to the ER. She says that it feels like she has electricity in herself. She screams and cries. Patient complaining of burning pain in the tip of the left big toe. It hurts to touch and she screams if someone touches it. She complains of feeling shocks in her different part of the body including her feet in different parts, calves, arms and head. Patient says that she feels that Abilify was producing side effects. She stopped taking it about a week ago. She denies any depression. She is not sure why she is taking Abilify. As per EMS flow sheet, when they arrived, found patient in care of self. Patient states that for last few days, she has been having increased tremors to the point that she cannot walk or stand to get things done at home. No falls. Patient denies any dizziness. Patient has been taking her all medications as prescribed. It was reported the patient has random tremors and head shaking during transport, states uncontrollable. He was oriented 4. Her blood pressure was 128/72, pulse rate 80, respiration 20, saturation 98%. Blood test shows normal CBC, PT/PTT, normal CMP. CK normal 42. CT head revealed no acute intracranial process. Remote injuries to the bilateral parietal lobes and right occipital lobe. I personally reviewed CT head, agree with the findings. EKG shows sinus rhythm with sinus arrhythmia. Per nursing report, patient has been asking frequently for pain medications. Patient claims that when she gets these tremors, it hurts. Patient has history of tobacco use of one pack per day for 30 years. She still smokes. She rarely drinks alcohol. Denies diabetes. Patient says that she has history of multiple bone fractures including the neck 2, bilateral wrist fracture, broke her pelvis, shoulder, hip. She has chronic neck and back pain. Patient currently takes Keppra 500 mg twice a day, trazodone 100 mg at bedtime, gabapentin 300 mg 3 times a day, metoprolol, and bulk 60 g daily, cetirizine 10 mg, [place] 10 one tablet every 6 hours, Zanaflex 4 mg every 8 hours, Lasix 40 mg, Abilify 2 mg daily and Robaxin. Patient states she was diagnosed with ADEM around 2011 (or 2012 patient does not remember). At that time she presented to the hospital with inability to walk, did not know where she was at, confused, even could not eat. She was given high-dose steroids. She used to follow-up with Dr. Sun, neurologist in the past. Patient states that as a result of this ADEM, patient has developed short-term memory issues. Sometimes she mixes up although she can remember most of things that she should remember. She cannot multitask, as if she is doing multiple things, she will forget. Like if she is heating coffee, and she goes to bathroom, she would forget that she has put coffee for heating. Later on she would remember it. Patient also states that about couple months ago she was admitted because she has problems with walking, and required transfer to rehabilitation facility. Her MRI of lumbar spine from 07/26/2019 showed multilevel spondylitic changes. Mild degenerative first-degree L4 5 spondylolisthesis. No spinal stenosis. Patient states she has history of failed back surgery. Patient's previous MRI of the cervical spine from 09/24/2016 showed loss of normal cervical curvature with multilevel spondylolisthesis and degenerative change causing multilevel effacement of the anterior thecal sac. Patient has previous MRI of the brain from 2017 which I reviewed. Review of Systems Constitutional: Denies chills, Denies fever Eyes: left loss of peripheral vision, denies blurred vision, denies diplopia, denies pain Ears: deny: decreased hearing, ear discharge Ears, nose, mouth and throat: Reports headache (Not a lot), Denies sore throat, Denies vertigo Cardiovascular: Reports chest pain (sometimes), Denies shortness of breath Respiratory: Reports cough (off and on), Denies excessive sputum Gastrointestinal: Denies abdominal pain, Denies diarrhea, Denies nausea, Denies vomiting Genitourinary: Denies dysuria, Denies hematuria, Denies urge incontinence Musculoskeletal: Reports low back pain, Reports neck pain, Denies myalgias Integumentary: Denies pruritus, Denies rash Neurological: Reports as per HPI Psychiatric: Denies anxiety, Denies depression Endocrine: Reports fatigue (After ttremors wears her out), Denies weight change Past Medical History Past Medical History: Asthma, CVA/TIA, Eye Disorder, Fibromyalgia, GERD/Reflux, Hyperlipidemia, Hypertension, Memory Impairment, Musculoskeletal Disorder, Osteoarthritis (OA), Seizure Disorder Additional Past Medical History / Comment(s): 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 hx. colon polyps, blood in stool History of Any Multi-Drug Resistant Organisms: None Reported Past Surgical History: Adenoidectomy, Back Surgery, Breast Surgery, Joint Replacement, Orthopedic Surgery, Tonsillectomy Additional Past Surgical History / Comment(s): right HAND SURGERY, BILATERAL ORIF WRISTS , RIGHT GANGLION CYST REMOVED, LEEP, COLONOSCOPY, EGD, BILATERAL CATARACTS WITH LENS IMPLANTS, RIGHT BREAST BIOPSY, BACK SURGERY X2, ONE WAS A LAMINECTOMY, LEFT KNEE AND RIGHT HIP REPLACEMENTS, PAIN INJECTION FOR BACK PAIN. Past Anesthesia/Blood Transfusion Reactions: No Reported Reaction Past Psychological History: Anxiety, Depression Additional Psychological History / Comment(s): "Depression and anxiety occasionally." SHORT TERM MEMORY LOSS. Smoking Status: Current every day smoker Past Alcohol Use History: Occasional Additional Past Alcohol Use History / Comment(s): STARTED SMOKING AT AGE 18, SMOKES 1PPD. Past Drug Use History: None Reported - Past Family History Brother(s) Family Medical History: Cancer Additional Family Medical History / Comment(s): PANCREATITIS. Mother Family Medical History: CVA/TIA, Deep Vein Thrombosis (DVT), Hypertension, Memory Impairment Additional Family Medical History / Comment(s): of Alzheimer's at age 70. Father Family Medical History: Coronary Artery Disease (CAD), CVA/TIA, Diabetes Mellitus, Hypertension Additional Family Medical History / Comment(s): at age 68. Medications and Allergies Home Medications Medication Instructions Recorded Confirmed Type Rosuvastatin [Crestor] 10 mg PO HS #30 tab 10/20/19 05/20/23 Rx levETIRAcetam [Keppra] 500 mg PO BID #60 tab 10/20/19 05/20/23 Rx Losartan Potassium [Cozaar] 100 mg PO DAILY 10/16/21 05/20/23 History Omeprazole 40 mg PO AC-BRKFST 10/16/21 05/20/23 History Albuterol Inhaler [Ventolin Hfa 1 - 2 puff INHALATION RT-Q6H PRN 08/31/22 0 05/20/23 History Inhaler] DULoxetine HCL [Cymbalta] 60 mg PO DAILY 08/31/22 05/20/23 History Ergocalciferol [Vitamin D2 (1250 1,250 mcg PO Q7D 08/31/22 05/20/23 History Mcg = 79094 Iu)] Gabapentin 300 mg PO TID 08/31/22 05/20/23 History Metoprolol Succinate (ER) [Toprol 25 mg PO DAILY 08/31/22 05/20/23 History XL] amLODIPine BESYLATE 5 mg PO DAILY 08/31/22 05/20/23 History traZODone HCL 100 mg PO HS 08/31/22 05/20/23 History Cetirizine HCl [Zyrtec] 10 mg PO DAILY PRN 12/17/22 05/20/23 History HYDROcodone/APAP 10-325MG [[place] 1 tab PO Q6HR 12/22/22 05/20/23 History 10-325] ARIPiprazole [Abilify] 2 mg PO DAILY 05/20/23 05/21/23 History Clotrimazole/Betameth Cream 1 applic TOPICAL BID PRN 05/20/23 05/20/23 History [Lotrisone] Furosemide [Lasix] 40 mg PO BID 05/20/23 05/20/23 History methocarbamoL [Methocarbamol] 500 mg PO TID PRN 05/20/23 05/20/23 History tiZANidine [Zanaflex] 4 mg PO Q8HR PRN 05/20/23 05/20/23 History Allergies Allergy/AdvReac Type Severity Reaction Status Date / Time nitrofurantoin AdvReac Abdominal Verified 03/02/23 11:31 [From Macrobid] Pain/Nausea/Vomiting NSAIDS (Non-Steroidal AdvReac Nausea & Verified 03/02/23 11:31 Anti-Inflamma Vomiting Physical Examination - Vital Signs Vital Signs: Vital Signs Temp Pulse Pulse Resp BP BP Pulse Ox 05/21/23 07:00 97.6 F 70 16 118/60 91 L 05/20/23 23:58 97.8 F 69 15 100/69 94 L 05/20/23 20:12 66 16 120/79 93 L 05/20/23 20:00 97.3 F L 70 15 124/75 95 05/20/23 18:14 61 18 120/70 92 L 05/20/23 17:11 98.1 F 81 16 128/70 96 05/20/23 16:11 98.2 F 78 16 123/77 96 05/20/23 15:11 98 F 80 16 112/77 96 05/20/23 14:02 97.6 F 81 18 109/68 93 L Intake and Output 05/20/23 05/21/23 05/21/23 22:59 06:59 14:59 Other: Voiding Method Toilet # Voids 0 0 Weight 86.183 kg Patient is an elderly female, very pleasant, in no acute distress. Patient is alert awake oriented to time place and person. Speech and language functions are normal. Patient can name and repeat very well. No aphasia or dysarthria. Attention, concentration and fund of knowledge is adequate. Detailed cognitive testing deferred. On cranial nerve examination, pupils are equal, round and reacting to light, visual aquino are full on confrontation, with no neglect on double simultaneous stimulation. Extraocular muscles are intact with no nystagmus. Face is symmetric, tongue protrudes to the midline. Palatal elevation and sensation normal, hearing and shoulder shrug normal, facial sensation normal. On muscle strength testing, there is no pronator drift and the strength is normal in arms and legs distally and proximally. Deep tendon reflexes are symmetric 2 at the biceps, 2 brachioradialis, 3 at the knees, and [place] is up on the right, but possible up on the left. Sensory to touch is equal with no neglect on double simultaneous stimulation. Cerebellar function showed no ataxia for [id number] testing. No dysdiadochokinesia. No ataxia for [id number] testing on either side. Tone and bulk of muscles normal. Gait: Patient walks with her walker. She appeared quite steady with her walker. On general examination, there is no carotid bruit or murmur, S1-S2 audible. Chest is clear on consultation. Abdomen is soft nontender. No organomegaly, bowel sounds present. Peripheral pulses are present. No edema. Patient did not have any tremors when I first came to the room. She was feeling fine. When she started describing her tremors "mimicking it", then it led to her tremors, in which her head was going front and back and then her torso was also doing the same. I told her to sit up on the bed, and the numbers went away immediately. Likewise when she was sitting on the side of the bed, her legs started tremoring, and I told her to change her position, and the tremors went away. Results - Laboratory Findings CBC and BMP: 05/20/23 15:59 05/20/23 15:59 Abnormal Lab Findings: Abnormal Labs 05/20/23 05/20/23 15:59 15:59 RDW 16.1 H Sodium 135 L Assessment and Plan Assessment: * Intermittent tremors, unclear cause. Some functional component noted. The tremors start low amplitude, and gets more intense and higher amplitude, but resolves if she changes her body position. Exact cause remains uncertain. * History of ADEM * Short-term memory loss, due to above. * History of repeated falls * Chronic back pain with lumbar spondylosis and history of back surgery * Chronic neck pain * Hypertension * Hyperlipidemia Plan: * Agree with stopping and Abilify, if not necessary. Patient denies depression. Psychiatry also on board. Consider trial of Cogentin 0.5 mg. * No other neurological workup indicated. Neurology will follow clinically. * Dr. Zamudio will cover neurology service over the weekend. Thank you for the consult.
[2023-05-21] MEDS: traZODone HCL 100 MG TAB PO SCH (22:22)
[2023-05-21] MEDS: ATORVASTATIN 20 MG TAB PO SCH (22:22)
[2023-05-21] MEDS: BENZTROPINE MESYLATE 0.5 MG TAB PO SCH (22:22)
[2023-05-21] MEDS: DULoxetine HCL 30 MG CAPSULE.DR PO SCH (22:22)
[2023-05-22] MEDS: HYDROcodone/APAP 10-325MG 1 EACH TAB PO SCH ×4 (04:08→20:48)
[2023-05-22] MEDS: PANTOPRAZOLE 40 MG TABLET PO SCH (07:02)
[2023-05-22] MEDS: GABAPENTIN 300 MG CAP PO SCH ×3 (09:47→20:54)
[2023-05-22] MEDS: DULoxetine HCL 60 MG CAPSULE.DR PO SCH (09:47)
[2023-05-22] MEDS: levETIRAcetam 500 MG TAB PO SCH ×2 (09:47→20:48)
[2023-05-22] MEDS: ENOXAPARIN 40 MG/0.4 ML SYRINGE SQ SCH (09:47)
[2023-05-22 10:09] LABS: Basophils # (A) 0.06 X 10*3/uL (0.00-0.10); Basophils % (A) 1.1 %; Eosinophils # (A) 0.19 X 10*3/uL (0.04-0.35); Eosinophils % (A) 3.6 %; HCT 38.9 % (37.2-46.3); HGB 12.3 d/dL (12.0-15.0); Lymphocytes # (A) 2.56 X 10*3/uL (0.90-5.00); Lymphocytes % (A) 48.3 %; MCH 28.3 pg (27.0-32.0); MCHC 31.6 d/dL (32.0-37.0); MCV 89.6 FL (80.0-97.0); Mean Platelet Volume 9.5 FL (9.5-12.2); Monocytes # (A) 0.63 X 10*3/uL (0.20-1.00); Monocytes % (A) 11.9 %; NRBC Per 100 WBC 0 X 10*3/uL (0.00-0.01); Neutrophils # (A) 1.85 X 10*3/uL (1.80-7.70); Neutrophils % (A) 34.9 %; Platelet Count 218 X 10*3/uL (140-440); RBC 4.34 X 10*6/uL (4.10-5.20); RDW 16.7 % (11.5-14.5)
[2023-05-22 10:18] LABS: ALT 12 U/L (8-44); AST 15 U/L (13-35); Albumin 3.7 d/dL (3.8-4.9); Albumin/Globulin Ratio 2.06 Ratio (1.60-3.17); Alkaline Phosphatase 58 U/L (41-126); BUN/Creat Ratio 21.62 Ratio (12.00-20.00); Blood Urea Nitrogen 17.3 mg/dL (9.0-27.0); Calcium 9.1 mg/dL (8.7-10.3); Carbon Dioxide 26.1 mmol/L (21.6-31.8); Chloride 102 mmol/L (96-109); Globulin 1.8 d/dL (1.6-3.3); Glucose 93 mg/dL (70-110); Potassium 4.2 mmol/L (3.5-5.5); Sodium 140 mmol/L (135-145); Total Bilirubin <0.2 mg/dL (0.3-1.2); Total Protein 5.5 d/dL (6.2-8.2)
[2023-05-22] MEDS: methocarbamoL 500 MG TAB PO PRN (10:18)
[2023-05-22] MEDS: SODIUM CHLORIDE 0.9% 1,000 ML IV SCH (11:07)
[2023-05-22] MEDS: amLODIPine 5 MG TAB PO SCH (13:52)
[2023-05-22] MEDS: LOSARTAN 50 MG TAB PO SCH (15:12)
[2023-05-22] MEDS: FUROSEMIDE 40 MG TAB PO SCH ×2 (15:12→15:40)
[2023-05-22] MEDS: METOPROLOL SUCCINATE (ER) 25 MG TAB.ER.24H PO SCH (15:41)
[2023-05-22] MEDS: ATORVASTATIN 20 MG TAB PO SCH (20:47)
[2023-05-22] MEDS: BENZTROPINE MESYLATE 0.5 MG TAB PO SCH (20:48)
[2023-05-22] MEDS: DULoxetine HCL 30 MG CAPSULE.DR PO SCH (20:48)
[2023-05-22] MEDS: traZODone HCL 100 MG TAB PO SCH (20:48)
[2023-05-23] MEDS: SODIUM CHLORIDE 0.9% 1,000 ML IV SCH (00:24)
[2023-05-23] MEDS: HYDROcodone/APAP 10-325MG 1 EACH TAB PO SCH ×2 (01:49→05:01)
[2023-05-23] MEDS: PANTOPRAZOLE 40 MG TABLET PO SCH (05:01)
[2023-05-23 07:44] VITALS: BP 111/66; PULSE 60; RESP 16; TEMP 97.6
--- NOTE | 2023-05-23 08:03 | P.PN ---
Subjective Progress Note Date: 05/22/23 HISTORY OF PRESENT ILLNESS: This is a 67-year-old female one of my patient with a previous medical history significant for hypertension and hypertensive cardiovascular disease, hyperlipidemia, GERD, seizure disorder, ALLERGIC rhinitis, vitamin D deficiency, osteoporosis with multiple fractures, depressive disorder with psychotic features. Patient presented to the hospital due to worsening tremor, generalized weakness, gait dysfunction and inability to care for herself. Patient's tremor and weakness have been gradually worsening over the past 4 months. She has transitioned to using a walker and even having trouble with this unable to dress herself and etc. She has increasing weakness and bilateral lower extremities which is causing her difficulty in ambulation. CBC and CMP unremarkable. CAT scan of brain revealed no acute intracranial process. Remote injuries to the bilateral parietal lobes and right occipital lobe. Chest x-ray no acute cardiopulmonary process. Patient has been placed in the observation unit and consult requested with psychiatry and neurology. 05/21: Patient is seen in follow-up. Consults in place with psychiatry and neurology. Cogentin increased Cymbalta, discontinued Abilify Patient had complaints of uncontrolled pain this morning to her nurse and Dilaudid 0.5 mg IV every 6 hours has been added. Patient also on lorazepam 0.5 mg oral twice daily as needed for anxiety. Blood pressure 118/60, heart rate in the 70s. Patient has been seen by physical therapy with recommendations for home with home care for subacute rehab. Patient states she is not interested in going home with home care. She wants subacute rehab. Consult to social work to be placed. 05/22:Patient is doing better we will continue to follow up with her , BP is soft today we held all her BP meds and we will discontinue Amlodipine and continue with Metoprolol and Losartan , we will decrease Pain Rx to tid and we will decrease Methocarbamol to bid and discontinue Lorazepam and Dilaudid, home in AM REVIEW OF SYSTEMS: Constitutional: No documented fever, no chills, no night sweats. No weight change. Reports weakness, Reports fatigue. No daytime sleepiness. HEENT: No headache. No blurred vision or double vision, no loss of vision. No loss of Hearing, no ringing in the ears, no dizziness. No nasal drainage or congestion. No epistaxis. No sore throat. Lungs: No shortness of breath, no cough, no sputum production. No wheezing. Reports dyspnea with activity. Cardiovascular: Reported chest painresolved, no lower extremity edema. No palpitations. No paroxysmal nocturnal dyspnea. No orthopnea. No lightheadedness or dizziness. No syncopal episodes. Abdominal: Reports abdominal pain. No nausea, vomiting. No diarrhea. No constipation. No bloody or tarry stools reports loss of appetite. Genitourinary: No dysuria, increased frequency, urgency. No urinary retention. Musculoskeletal: No myalgias. Reports muscle weakness, positive for gait dysf unction, positive for frequent falls. positive for back pain and neck pain. Reports worsening lower extremity weakness. Integumentary: No wounds, no lesions. No rash or pruritus. No unusual bruis ing. No change in hair or nails. Neurologic: No aphasia. No facial droop. No change in mentation. No head injury. No headache. No paralysis. No paresthesia. Reports worsening tremor Psychiatric: positive for depression. Reports psychosis, reports anxiety. No mood swings. Endocrine: No abnormal blood sugars. No weight change. PHYSICAL EXAMINATION: General: 67-year-old female laying down in bed in no distress, slightly anxious. HEENT: Head is atraumatic, normocephalic, pupils were equal round reactive to light and recommendation, extraocular muscle movement were intact, sclera nonicteric, conjunctivae were pale, mucous membranes of the mouth are somewhat dry. Neck: Supple, no JVP, normal carotid upstroke bilaterally, no lymphadenopathy. Chest: Decreased breath sounds at the bases, few rhonchi, minimal expiratory wheezes, no chest wall tenderness, no intercostal retractions. Heart: First heart sound is normal, second heart sounds normal there is systolic ejection murmur 2/6 located in the left sternal border. Abdomen: Soft, nontender, nondistended, positive bowel sounds. Extremities: There is no edema no calf tenderness DP +2 bilaterally. Neurologic examination: Patient is awake alert and oriented X 3, cranial nerves II-12 appear grossly intact, muscle power were 5 out of 5 in upper extremities and 5 out of 5 in bilateral lower extremities, deep tendon reflexes normal bilaterally. ASSESSMENT AND PLAN: 1. Increasing weakness, tremor and inability to ambulate . patient was supposed to get to an AFC vs ECF which was not done . we will consult PT/OT and social contact worker for discharge planing, also we will Consult with psychiatry and neurology, recommendations were noted to discontinue Abilify and start Cogentin 0.5 mg po qhs and decrease Cymbalta 60 mg in AM and 30mg in PM 2. Worsening depression with psychotic features we will continue with Duloxe joel 60 mg in Am and 30 mg in PM , off Abilify. 3. Hypertension and hypertensive cardiovascular disease. Continue losartan 100 mg orally once every day, Amlodipine 5 mg po daily along with Metoprolol 25 mg po daily monitor blood pressure very closely. 4. Hyperlipidemia. Continue Atorvastatin 20 mg orally once every day, monitor lipid panel, keep LDL 55-70. 5. GERD. Continue Protonix 40 mg po daily 6. Vitamin D deficiency. Continue vitamin D supplement once every week. 7. ALLERGIC rhinitis. Continue patient on Zyrtec 10 mg orally once every day. 8. Seizure disorder. Continue Keppra 500 mg twice daily. 9. Chronic pain syndrome. we will continue with current pain management 10 Spondylosis of the Lumbar spine post back surgery. we will continue with [place], Gabapentin and Methocarbamol as needed.we will keep Dilaudid as needed for severe pain 11. DVT prophylaxis. we will continue with Lovenox 40 mg po daily 12 GI prophylaxis. Continue PPI. Objective - Vital Signs Vital signs: Vital Signs Temp 98.2 F 05/21/23 19:00 Pulse 69 05/21/23 22:39 Resp 12 05/21/23 19:00 BP 109/75 05/21/23 22:39 Pulse Ox 97 05/21/23 22:39 FiO2 Intake & Output 05/21/23 05/21/23 05/22/23 06:59 18:59 06:59 Weight 86.183 kg Other: Voiding Method Toilet Toilet # Voids 0 3 - Labs CBC & Chem 7: 05/22/23 05:22 05/22/23 05:22
[2023-05-23] MEDS ORDERED: methocarbamoL 500 MG TAB PO PRN (08:05)
[2023-05-23] MEDS ORDERED: HYDROcodone/APAP 10-325MG 1 EACH TAB PO SCH (08:30)
[2023-05-23] MEDS: ENOXAPARIN 40 MG/0.4 ML SYRINGE SQ SCH (10:10)
[2023-05-23] MEDS: levETIRAcetam 500 MG TAB PO SCH (10:11)
[2023-05-23] MEDS: METOPROLOL SUCCINATE (ER) 25 MG TAB.ER.24H PO SCH (10:11)
[2023-05-23] MEDS: GABAPENTIN 300 MG CAP PO SCH (10:11)
[2023-05-23] MEDS: FUROSEMIDE 40 MG TAB PO SCH (10:11)
[2023-05-23] MEDS: DULoxetine HCL 60 MG CAPSULE.DR PO SCH (10:11)
--- NOTE | 2023-05-23 10:54 | P.DS ---
Providers Date of admission: 05/20/23 17:34 Expected date of discharge: 05/23/23 Attending physician: Yanni Max Consults: 05/20/23 17:30 Consult Physician Routine Consulting Provider: Zoran Mercado Consult Reason/Comments: tremor, difficulty walking Do you want consulting provider notified?: Yes, Notify in am 05/21/23 09:02 Consult Physician Routine Consulting Provider: Jose G Hicks Consult Reason/Comments: depression tremors Do you want consulting provider notified?: Yes Primary care physician: Yanni Max Hospital Course: HISTORY OF PRESENT ILLNESS: This is a 67-year-old female one of my patient with a previous medical history significant for hypertension and hypertensive cardiovascular disease, hyperlipidemia, GERD, seizure disorder, ALLERGIC rhinitis, vitamin D deficiency, osteoporosis with multiple fractures, depressive disorder with psychotic features. Patient presented to the hospital due to worsening tremor, generalized weakness, gait dysfunction and inability to care for herself. Patient's tremor and weakness have been gradually worsening over the past 4 months. She has transitioned to using a walker and even having trouble with this unable to dress herself and etc. She has increasing weakness and bilateral lower extremities which is causing her difficulty in ambulation. CBC and CMP unremarkable. CAT scan of brain revealed no acute intracranial process. Remote injuries to the bilateral parietal lobes and right occipital lobe. Chest x-ray no acute cardiopulmonary process. Patient has been placed in the observation unit and consult requested with psychiatry and neurology. 05/21: Patient is seen in follow-up. Consults in place with psychiatry and neurology. Cogentin increased Cymbalta, discontinued Abilify Patient had complaints of uncontrolled pain this morning to her nurse and Dilaudid 0.5 mg IV every 6 hours has been added. Patient also on lorazepam 0.5 mg oral twice daily as needed for anxiety. Blood pressure 118/60, heart rate in the 70s. Patient has been seen by physical therapy with recommendations for home with home care for subacute rehab. Patient states she is not interested in going home with [facility]. She wants subacute rehab. Consult to social work to be placed. 05/22:Patient is doing better we will continue to follow up with her , BP is soft today we held all her BP meds and we will discontinue Amlodipine and continue with Metoprolol and Losartan , we will decrease Pain Rx to tid and we will decrease Methocarbamol to bid and discontinue Lorazepam and Dilaudid, home in AM 05/23: patient is doing better, ambulating with her walker, discussed with her the decrease in her pain meds and Methocabamol and no Zanaflex and we have discussed the increase of Duloxetin 60 mg in Am and 30 mg in PM and we will follow up with her in 1 week Discharge Diagnoses: 1. Increasing weakness, tremor and inability to ambulate . Resolved 2. Worsening depression with psychotic features 3. Hypertension and hypertensive cardiovascular disease. 4. Hyperlipidemia. 5. GERD. 6. Vitamin D deficiency. 7. ALLERGIC rhinitis. 8. Seizure disorder. 9. Chronic pain syndrome. 10 Spondylosis of the Lumbar spine post back surgery Patient Condition at Discharge: Stable Plan - Discharge Summary New Discharge Prescriptions: No Action Rosuvastatin [Crestor] 10 mg PO HS #30 tab levETIRAcetam [Keppra] 500 mg PO BID #60 tab Albuterol Inhaler [Ventolin Hfa Inhaler] 1 - 2 puff INHALATION RT-Q6H PRN PRN Reason: Shortness Of Breath amLODIPine BESYLATE 5 mg PO DAILY traZODone HCL 100 mg PO HS Gabapentin 300 mg PO TID Cetirizine HCl [Zyrtec] 10 mg PO DAILY PRN PRN Reason: allergies tiZANidine [Zanaflex] 4 mg PO Q8HR PRN PRN Reason: Muscle Pain Furosemide [Lasix] 40 mg PO BID Clotrimazole/Betameth Cream [Lotrisone] 1 applic TOPICAL BID PRN PRN Reason: Rash Losartan Potassium [Cozaar] 100 mg PO DAILY Omeprazole 40 mg PO AC-BRKFST Metoprolol Succinate (ER) [Toprol XL] 25 mg PO DAILY Ergocalciferol [Vitamin D2 (1250 Mcg = 59967 Iu)] 1,250 mcg PO Q7D DULoxetine HCL [Cymbalta] 60 mg PO DAILY HYDROcodone/APAP 10-325MG [[place] 10-325] 1 tab PO Q6HR ARIPiprazole [Abilify] 2 mg PO DAILY methocarbamoL [Methocarbamol] 500 mg PO TID PRN PRN Reason: Muscle Spasm Discharge Medication List Rosuvastatin [Crestor] 10 mg PO HS #30 tab 10/20/19 [Rx] levETIRAcetam [Keppra] 500 mg PO BID #60 tab 10/20/19 [Rx] Losartan Potassium [Cozaar] 100 mg PO DAILY 10/16/21 [History] Omeprazole 40 mg PO AC-BRKFST 10/16/21 [History] Albuterol Inhaler [Ventolin Hfa Inhaler] 1 - 2 puff INHALATION RT-Q6H PRN 08/31/22 [History] DULoxetine HCL [Cymbalta] 60 mg PO DAILY 08/31/22 [History] Ergocalciferol [Vitamin D2 (1250 Mcg = 61769 Iu)] 1,250 mcg PO Q7D 08/31/22 [History] Gabapentin 300 mg PO TID 08/31/22 [History] Metoprolol Succinate (ER) [Toprol XL] 25 mg PO DAILY 08/31/22 [History] amLODIPine BESYLATE 5 mg PO DAILY 08/31/22 [History] traZODone HCL 100 mg PO HS 08/31/22 [History] Cetirizine HCl [Zyrtec] 10 mg PO DAILY PRN 12/17/22 [History] HYDROcodone/APAP 10-325MG [[place] 10-325] 1 tab PO Q6HR 12/22/22 [History] ARIPiprazole [Abilify] 2 mg PO DAILY 05/20/23 [History] Clotrimazole/Betameth Cream [Lotrisone] 1 applic TOPICAL BID PRN 05/20/23 [History] Furosemide [Lasix] 40 mg PO BID 05/20/23 [History] methocarbamoL [Methocarbamol] 500 mg PO TID PRN 05/20/23 [History] tiZANidine [Zanaflex] 4 mg PO Q8HR PRN 05/20/23 [History] Follow up Appointment(s)/Referral(s): Yanni Max MD [Primary Care Provider] - 1-2 days [facility] Vis[facility] Nurse, [NON-STAFF] - 1 Week
[2023-05-23] MEDS: LOSARTAN 50 MG TAB PO SCH (12:17)
== END 2023-05-23 13:19 | disposition home health service (06) ==
LOC: EC 14:00 → 6NMEDSUR 17:34
PROVIDERS: ADMIT Internal Medicine; ATTEND Internal Medicine
DX: R25.1 Tremor, unspecified (principal); R53.1 Weakness; F32.3 Major depressive disorder, single episode, severe with psychotic features; I10 Essential (primary) hypertension; E78.5 Hyperlipidemia, unspecified; K21.9 Gastro-esophageal reflux disease without esophagitis; E55.9 Vitamin D deficiency, unspecified; G40.909 Epilepsy, unspecified, not intractable, without status epilepticus; I25.10 Atherosclerotic heart disease of native coronary artery without angina pectoris; G89.4 Chronic pain syndrome; M47.816 Spondylosis without myelopathy or radiculopathy, lumbar region; J45.909 Unspecified asthma, uncomplicated; M79.7 Fibromyalgia; R41.3 Other amnesia; M19.90 Unspecified osteoarthritis, unspecified site; I69.311 Memory deficit following cerebral infarction; I69.312 Visuospatial deficit and spatial neglect following cerebral infarction; R29.6 Repeated falls; Z86.010 Personal history of colon polyps; Z88.1 Allergy status to other antibiotic agents; Z96.652 Presence of left artificial knee joint; Z96.642 Presence of left artificial hip joint; Z98.890 Other specified postprocedural states; Z98.42 Cataract extraction status, left eye; Z98.41 Cataract extraction status, right eye; Z96.1 Presence of intraocular lens; Z79.891 Long term (current) use of opiate analgesic; Z79.899 Other long term (current) drug therapy; Z88.6 Allergy status to analgesic agent
CPT/HCPCS: 96376 ×3; 96361 ×2; 96375; 96374; 99285; 36415; 94760 ×2; 93005; 97116; 97112; 97162; 80053 ×2; 82550; 83735; 85025 ×2; 85610; 85730; 71046; 70450; G0378 ×4; J2060; J1650 ×3; J1170

== ENCOUNTER 2023-06-05 12:09 | Emergency (ER) | payer MEDICARE, OTHER ==
[2023-06-05 12:22] VITALS: PULSE 79; RESP 16
[2023-06-05] MEDS ORDERED: BENZTROPINE MESYLATE 0.5 MG TAB PO STA (13:19)
--- NOTE | 2023-06-05 13:24 | ED ---
General Adult HPI - General Chief complaint: Neuro Symptoms/Deficit Stated complaint: tremors Time Seen by Provider: 06/05/23 12:11 Source: patient, EMS, RN notes reviewed Mode of arrival: EMS Limitations: no limitations - History of Present Illness Initial comments: Patient is a pleasant 68-year-old female presenting to the emergency department with concern for tremors. Patient has been dealing with tremors for months. Patient was in the hospital recently for this. Patient states she started a new medication however is unclear what it is. Patient states it seemed to be helping for a little bit however no longer is. Patient states she daily is having tremors lasting for hours. Patient states usually this occurs once per day. Currently patient is symptom-free. - Related Data Home Medications Medication Instructions Recorded Confirmed Losartan Potassium [Cozaar] 100 mg PO DAILY 10/16/21 05/20/23 Omeprazole 40 mg PO AC-BRKFST 10/16/21 05/20/23 Albuterol Inhaler [Ventolin Hfa 1 - 2 puff INHALATION RT-Q6H PRN 08/31/22 05/20/23 Inhaler] DULoxetine HCL [Cymbalta] 60 mg PO DAILY 08/31/22 05/20/23 Ergocalciferol [Vitamin D2 (1250 1,250 mcg PO Q7D 08/31/22 05/20/23 Mcg = 07877 Iu)] Gabapentin 300 mg PO TID 08/31/22 05/20/23 Metoprolol Succinate (ER) [Toprol 25 mg PO DAILY 08/31/22 05/20/23 XL] traZODone HCL 100 mg PO HS 08/31/22 05/20/23 Cetirizine HCl [Zyrtec] 10 mg PO DAILY PRN 12/17/22 05/20/23 Clotrimazole/Betameth Cream 1 applic TOPICAL BID PRN 05/20/23 05/20/23 [Lotrisone] Furosemide [Lasix] 40 mg PO BID 05/20/23 05/20/23 Previous Rx's Medication Instructions Recorded Rosuvastatin [Crestor] 10 mg PO HS #30 tab 10/20/19 levETIRAcetam [Keppra] 500 mg PO BID #60 tab 10/20/19 Benztropine Mesylate [Cogentin] 0.5 mg PO HS #30 tab 05/23/23 DULoxetine HCL [Cymbalta] 30 mg PO HS #90 cap 05/23/23 HYDROcodone/APAP 10-325MG [[place] 1 tab PO Q8H #0 05/23/23 10-325] methocarbamoL [Methocarbamol] 500 mg PO BID #0 05/23/23 Benztropine Mesylate [Cogentin] 0.5 mg PO BID #60 tablet 06/05/23 Allergies Allergy/AdvReac Type Severity Reaction Status Date / Time nitrofurantoin AdvReac Abdominal Verified 03/02/23 11:31 [From Macrobid] Pain/Nausea/Vomiting NSAIDS (Non-Steroidal AdvReac Nausea & Verified 03/02/23 11:31 Anti-Inflamma Vomiting Review of Systems ROS Statement: Those systems with pertinent positive or pertinent negative responses have been documented in the HPI. ROS Other: All systems not noted in ROS Statement are negative. 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 hx. colon polyps, recent blood in stool History of Any Multi-Drug Resistant Organisms: None Reported Past Surgical History: Adenoidectomy, Back Surgery, Breast Surgery, Joint Replacement, Orthopedic Surgery, Tonsillectomy Additional Past Surgical History / Comment(s): LEFT HAND SURGERY, BILATERAL ORIF WRISTS , RIGHT GANGLION CYST REMOVED, LEEP, COLONOSCOPY, EGD, BILATERAL CATARACTS WITH LENS IMPLANTS, RIGHT BREAST BIOPSY, BACK SURGERY X2, ONE WAS A LAMINECTOMY, LEFT KNEE AND LEFT HIP REPLACEMENTS, PAIN INJECTION FOR BACK PAIN. Past Anesthesia/Blood Transfusion Reactions: No Reported Reaction Past Psychological History: Anxiety, Depression Smoking Status: Current every day smoker Past Alcohol Use History: Occasional Past Drug Use History: None Reported - Past Family History Brother(s) Family Medical History: Cancer Additional Family Medical History / Comment(s): PANCREATITIS. Mother Family Medical History: CVA/TIA, Deep Vein Thrombosis (DVT), Hypertension, Memory Impairment Additional Family Medical History / Comment(s): of Alzheimer's at age 70. Father Family Medical History: Coronary Artery Disease (CAD), CVA/TIA, Diabetes Mellitus, Hypertension Additional Family Medical History / Comment(s): at age 68. General Exam Limitations: no limitations General appearance: alert, in no apparent distress Head exam: Present: atraumatic Eye exam: Present: normal appearance, PERRL, EOMI Neck exam: Present: normal inspection Respiratory exam: Present: normal lung sounds bilaterally Cardiovascular Exam: Present: regular rate, normal rhythm GI/Abdominal exam: Present: soft. Absent: tenderness Extremities exam: Present: normal inspection Neurological exam: Present: alert, CN II-XII intact. Absent: motor sensory deficit Expanded Neurological exam: Present: protecting the airway Speech: Present: fluid speech Cranial nerves: EOM's Intact: Normal Motor strength exam: RUE: 5, LUE: 5, RLE: 5, LLE: 5 Eye Response: (4) open spontaneously Motor Response: (6) obeys commands Verbal Response: (5) oriented Psychiatric exam: Present: normal affect, normal mood Skin exam: Present: normal color Course Vital Signs 06/05/23 12:15 Temperature 97.7 F Pulse Rate 79 Respiratory 16 Rate Blood Pressure 142/88 Medical Decision Making - Medical Decision Making Was pt. sent in by a medical professional or institution (INGE Varela, STORAGE SOLUTIONS ARCHITECT, urgent care, hospital, or jail...) When possible be specific @ -No Did you speak to anyone other than the patient for history (EMS, parent, family, police, friend...)? What history was obtained from this source @ -No Did you review nursing and triage notes (agree or disagree)? Why? @ -I reviewed and agree with nursing and triage notes Were old charts reviewed (outside hosp., previous admission, EMS record, old EKG, old radiological studies, urgent care reports/EKG's, jail records)? Report findings @ -No old charts were reviewed Differential Diagnosis (chest pain, altered mental status, abdominal pain women, abdominal pain men, vaginal bleeding, weakness, fever, dyspnea, syncope, headache, dizziness, GI bleed, back pain, seizure, CVA, palpatations, mental health, musculoskeletal)? @ -Differential Weakness: Hypoglycemia, shock, sepsis, hyponatremia, anemia, infection, NV, ETOH, adverse medicine reaction, overdose, stroke, this is not meant to be an all-inclusive list. EKG interpreted by me (3pts min.). @ -As above X-rays interpreted by me (1pt min.). @ -None done CT interpreted by me (1pt min.). @ -None done U/S interpreted by me (1pt. min.). @ -None done What testing was considered but not performed or refused? (CT, X-rays, U/S, labs)? Why? @ -None What meds were considered but not given or refused? Why? @ -None Did you discuss the management of the patient with other professionals (professionals i.e. , PA, STORAGE SOLUTIONS ARCHITECT, lab, RT, psych nurse, social services analyst, chief wellness officer, teacher, airline pilot/first officer, corrections caseworker)? Give summary @ -Case was discussed with Dr. Max who is familiar with this patient. He states patient was recently started on Cogentin 0.5 mg daily. He recommends increasing this to twice a day and patient can otherwise be discharged Was smoking cessation discussed for >3mins.? @ -No Was critical care preformed (if so, how long)? @ -No Were there social determinants of health that impacted care today? How? (Homelessness, low income, unemployed, alcoholism, drug addiction, transportation, low edu. Level, literacy, decrease access to med. care, longterm, rehab)? @ -No Was there de-escalation of care discussed even if they declined (Discuss DNR or withdrawal of care, Hospice)? DNR status @ -No What co-morbidities impacted this encounter? (DM, HTN, Smoking, COPD, CAD, Cancer, CVA, ARF, Chemo, Hep., AIDS, mental health diagnosis, sleep apnea, morbid obesity)? @ -None Was patient admitted / discharged? Hospital course, mention meds given and route, prescriptions, significant lab abnormalities, going to OR and other pertinent info. @ -Patient reevaluated and updated. Patient ordered medication and new prescription sent. Patient does demonstrate understanding Undiagnosed new problem with uncertain prognosis? @ -No Drug Therapy requiring intensive monitoring for toxicity (Heparin, Nitro, Insulin, Cardizem)? @ -No Were any procedures done? @ -No Diagnosis/symptom? @ -Tremor Acute, or Chronic, or Acute on Chronic? @ -Acute on chronic Uncomplicated (without systemic symptoms) or Complicated (systemic symptoms)? @ -default Side effects of treatment? @ -No Exacerbation, Progression, or Severe Exacerbation? @ -No Poses a threat to life or bodily function? How? (Chest pain, USA, NV, pneumonia, PE, COPD, DKA, ARF, appy, cholecystitis, CVA, Diverticulitis, Homicidal, Suicidal, threat to staff... and all critical care pts) @ -No Disposition Clinical Impression: Tremor Disposition: HOME SELF-CARE Condition: Stable Instructions (If sedation given, give patient instructions): Tremors (ED) Additional Instructions: Prescription has been sent to pharmacy. He will be taking Cogentin 0.5 mg twice daily rather than once daily as previously prescribed. Please do follow-up to primary care physician in the next couple days for recheck. Return for seizure, weakness, confusion, worsening or changing symptoms or other concerns. Prescriptions: Benztropine Mesylate [Cogentin] 0.5 mg PO BID #60 tablet Is patient prescribed a controlled substance at d/c from ED?: No Referrals: Yanni Max MD [Primary Care Provider] - 1-2 days Time of Disposition: 13:23
[2023-06-05] MEDS ORDERED: ACETAMINOPHEN TAB 500 MG TAB PO STA (13:28)
[2023-06-05 13:30] VITALS: BP 116/73; TEMP 98
== END 2023-06-05 13:52 | disposition home or self-care (01) ==
LOC: EC 12:09
DX: R25.1 Tremor, unspecified (principal); I10 Essential (primary) hypertension; J45.909 Unspecified asthma, uncomplicated; E78.5 Hyperlipidemia, unspecified; K21.9 Gastro-esophageal reflux disease without esophagitis; F17.200 Nicotine dependence, unspecified, uncomplicated; F32.A Depression, unspecified; F41.9 Anxiety disorder, unspecified; Z79.899 Other long term (current) drug therapy; Z88.1 Allergy status to other antibiotic agents; Z88.6 Allergy status to analgesic agent; Z86.73 Personal history of transient ischemic attack (TIA), and cerebral infarction without residual deficits
CPT/HCPCS: 99284

== ENCOUNTER 2023-06-26 19:13 | Emergency (ER) | payer MEDICARE, OTHER ==
[2023-06-26 19:21] VITALS: TEMP 98.2
[2023-06-26 20:08] LABS: Anisocytosis Slight; Basophils # (A) 0.1 k/uL (0-0.2); Basophils % (A) 1 %; Eosinophils # (A) 0.1 k/uL (0-0.7); Eosinophils % (A) 2 %; HCT 41.5 % (34.0-46.0); HGB 13.8 gm/dL (11.4-16.0); Lymphocytes # (A) 2.7 k/uL (1.0-4.8); Lymphocytes % (A) 34 %; MCH 30.1 pg (25.0-35.0); MCHC 33.2 g/dL (31.0-37.0); MCV 90.7 fL (80.0-100.0); Mean Platelet Volume 7.3; Monocytes # (A) 0.6 k/uL (0-1.0); Monocytes % (A) 7 %; Neutrophils # (A) 4.1 k/uL (1.3-7.7); Neutrophils % (A) 53 %; Platelet Count 275 k/uL (150-450); RBC 4.57 m/uL (3.80-5.40); WBC 7.8 k/uL (3.8-10.6)
[2023-06-26 20:19] LABS: Appearance,Urine Clear (Clear); Bacteria,Urine Rare /hpf; Bilirubin,Urine Negative (Negative); Blood,Urine Negative (Negative); Color,Urine Colorless; Glucose,Urine (UA) Negative (Negative); Ketones,Urine Negative (Negative); Leukocyte Esterase,Urine Moderate (Negative); Nitrite,Urine Negative (Negative); Protein,Urine Negative (Negative); RBC,Urine 2 /hpf (0-5); Specific Gravity,Urine 1.007 (1.001-1.035); Squamous Epithelial Cell,Urine 2 /hpf (0-4); Urobilinogen,Urine <2.0 mg/dL (<2.0); WBC,Urine 7 /hpf (0-5)
[2023-06-26 20:21] LABS: ALT 19 U/L (4-34); AST 27 U/L (14-36); African American GFR (CKD) >90 (>60 ml/min/1.73 sqM); Albumin 4.3 g/dL (3.5-5.0); Alkaline Phosphatase 59 U/L (38-126); Anion Gap 10 mmol/L; Blood Urea Nitrogen 14 mg/dL (7-17); Calcium 9.5 mg/dL (8.4-10.2); Carbon Dioxide 22 mmol/L (22-30); Chloride 99 mmol/L (98-107); Creatine Kinase 43 U/L (30-135); Glucose 108 mg/dL (74-99); Non-African American GFR(CKD) >90 (>60 ml/min/1.73 sqM); Potassium 4.8 mmol/L (3.5-5.1); Sodium 131 mmol/L (137-145); Total Bilirubin 0.5 mg/dL (0.2-1.3); Total Protein 7.1 g/dL (6.3-8.2)
[2023-06-26 20:25] LABS: Partial Thromboplastin Time 25.9 sec (22.0-30.0); Prothrombin Time 10.1 sec (9.0-12.0)
[2023-06-26 20:27] LABS: Amphetamine Screen,Urine Not Detected (NotDetected); Barbiturate Screen,Urine Not Detected (NotDetected); Benzodiazepines Screen,Urine Not Detected (NotDetected); Cocaine Screen,Urine Not Detected (NotDetected); Methadone Screen, Urine Not Detected (NotDetected); Opiate Screen,Urine Detected (NotDetected); Oxycodone Screen, Urine Not Detected (NotDetected); Phencyclidine Screen,Urine Not Detected (NotDetected); Tricyclic Antidepressant,Urine Not Detected (NotDetected); Urn Cannabinoid Scrn Not Detected (NotDetected)
[2023-06-26] MEDS ORDERED: KETOROLAC 15 MG/ML 1 ML VIAL IVP STA (20:30)
[2023-06-26] MEDS: BENZTROPINE MESYLATE 0.5 MG TAB PO SCH (20:42)
[2023-06-26] MEDS ORDERED: LORazepam 2 MG/ML INJ IV STA (21:21)
--- NOTE | 2023-06-26 21:52 | ED ---
Psych HPI - General Source: patient, EMS Mode of arrival: EMS <Tio Archuleta - Last Filed: 06/27/23 03:48> <Bebeto Baez - Last Filed: 06/27/23 08:37> - General Chief Complaint: Psychiatric Symptoms Stated Complaint: Tremors Time Seen by Provider: 06/26/23 19:29 - History of Present Illness Initial Comments: 68-year-old female presenting with chief complaint of tremors. Patient has history of tremors and has been seen here on multiple occasions for this complaint. She is supposed to be on Cogentin 0.5 mg twice a day, however she states that she stopped taking it because "it doesn't work". She is unsure how long ago she stopped taking her medication. When I initially walked in the room the patient was resting comfortably in bed and showing no signs of tremor, as she began describing her symptoms she began to thrash her head back and forth. She also admits to pain in the leg and neck. She states that she has chronic pain in these regions. No new injury or trauma. She denies chest pain, difficulty breathing, abdominal pain, nausea, vomiting, headache. Patient is telling me "I have electrical things inside of me but he can't see them". She denies any suicidal or homicidal ideation. (Tio Archuleta) - Related Data Home Medications Medication Instructions Recorded Confirmed Losartan Potassium [Cozaar] 100 mg PO DAILY 10/16/21 05/20/23 Omeprazole 40 mg PO AC-BRKFST 10/16/21 05/20/23 Albuterol Inhaler [Ventolin Hfa 1 - 2 puff INHALATION RT-Q6H PRN 08/31/22 05/20/23 Inhaler] DULoxetine HCL [Cymbalta] 60 mg PO DAILY 08/31/22 05/20/23 Ergocalciferol [Vitamin D2 (1250 1,250 mcg PO Q7D 08/31/22 05/20/23 Mcg = 53592 Iu)] Gabapentin 300 mg PO TID 08/31/22 05/20/23 Metoprolol Succinate (ER) [Toprol 25 mg PO DAILY 08/31/22 05/20/23 XL] traZODone HCL 100 mg PO HS 08/31/22 05/20/23 Cetirizine HCl [Zyrtec] 10 mg PO DAILY PRN 12/17/22 05/20/23 Clotrimazole/Betameth Cream 1 applic TOPICAL BID PRN 05/20/23 05/20/23 [Lotrisone] Furosemide [Lasix] 40 mg PO BID 05/20/23 05/20/23 Previous Rx's Medication Instructions Recorded Rosuvastatin [Crestor] 10 mg PO HS #30 tab 10/20/19 levETIRAcetam [Keppra] 500 mg PO BID #60 tab 10/20/19 Benztropine Mesylate [Cogentin] 0.5 mg PO HS #30 tab 05/23/23 DULoxetine HCL [Cymbalta] 30 mg PO HS #90 cap 05/23/23 HYDROcodone/APAP 10-325MG [[place] 1 tab PO Q8H #0 05/23/23 10-325] methocarbamoL [Methocarbamol] 500 mg PO BID #0 05/23/23 Benztropine Mesylate [Cogentin] 0.5 mg PO BID #60 tablet 06/05/23 Allergies Allergy/AdvReac Type Severity Reaction Status Date / Time nitrofurantoin AdvReac Abdominal Verified 06/21/23 16:24 [From Macrobid] Pain/Nausea/Vomiting NSAIDS (Non-Steroidal AdvReac Nausea & Verified 06/21/23 16:24 Anti-Inflamma Vomiting Review of Systems ROS Other: All systems not noted in ROS Statement are negative. <Tio Archuleta - Last Filed: 06/27/23 03:48> ROS Other: All systems not noted in ROS Statement are negative. <Bebeto Baez - Last Filed: 06/27/23 08:37> ROS Statement: Those systems with pertinent positive or pertinent negative responses have been documented in the HPI. 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 hx. colon polyps, History of Any Multi-Drug Resistant Organisms: None Reported Past Surgical History: Adenoidectomy, Back Surgery, Breast Surgery, Joint Replacement, Orthopedic Surgery, Tonsillectomy Additional Past Surgical History / Comment(s): LEFT HAND SURGERY, BILATERAL ORIF WRISTS , RIGHT GANGLION CYST REMOVED, LEEP, COLONOSCOPY, EGD, BILATERAL CATARACTS WITH LENS IMPLANTS, RIGHT BREAST BIOPSY, BACK SURGERY X2, ONE WAS A LAMINECTOMY, LEFT KNEE AND LEFT HIP REPLACEMENTS, PAIN INJECTION FOR BACK PAIN. Past Anesthesia/Blood Transfusion Reactions: No Reported Reaction Past Psychological History: Anxiety, Depression Smoking Status: Current every day smoker Past Alcohol Use History: Occasional Past Drug Use History: None Reported - Past Family History Brother(s) Family Medical History: Cancer Additional Family Medical History / Comment(s): PANCREATITIS. Mother Family Medical History: CVA/TIA, Deep Vein Thrombosis (DVT), Hypertension, Memory Impairment Additional Family Medical History / Comment(s): of Alzheimer's at age 70. Father Family Medical History: Coronary Artery Disease (CAD), CVA/TIA, Diabetes Mellitus, Hypertension Additional Family Medical History / Comment(s): at age 68. <Tio Archuleta - Last Filed: 06/27/23 03:48> General Exam Limitations: no limitations General appearance: alert, in no apparent distress Head exam: Present: atraumatic, normocephalic, normal inspection Eye exam: Present: normal appearance, PERRL, EOMI. Absent: scleral icterus, periorbital swelling Neck exam: Present: normal inspection, full ROM Respiratory exam: Present: normal lung sounds bilaterally. Absent: respiratory distress, wheezes, rales, rhonchi, stridor Cardiovascular Exam: Present: regular rate, normal rhythm, normal heart sounds. Absent: systolic murmur, diastolic murmur, rubs, gallop, clicks Neurological exam: Present: alert, oriented X3, CN II-XII intact Psychiatric exam: Present: normal affect, normal mood. Absent: homicidal ideation, suicidal ideation Skin exam: Present: warm, dry, intact, normal color. Absent: rash <Tio Archuleta - Last Filed: 06/27/23 03:48> Course Vital Signs 06/26/23 06/27/23 06/27/23 19:16 04:00 05:00 Temperature 98.2 F Pulse Rate 89 75 Respiratory 19 19 17 Rate Blood Pressure 125/81 102/70 O2 Sat by Pulse 98 91 L Oximetry Medical Decision Making - Lab Data Result diagrams: 06/26/23 19:58 06/26/23 19:58 <Tio Archuleta - Last Filed: 06/27/23 03:48> - Lab Data Result diagrams: 06/26/23 19:58 06/26/23 19:58 <Bebeto Baez - Last Filed: 06/27/23 08:37> - Medical Decision Making Was pt. sent in by a medical professional or institution (, PA, P[employer] MAKER, urgent care, hospital, or detention...) When possible be specific @ -No Did you speak to anyone other than the patient for history (EMS, parent, family, police, friend...)? What history was obtained from this source @ -No Did you review nursing and triage notes (agree or disagree)? Why? @ -I reviewed and agree with nursing and triage notes Were old charts reviewed (outside hosp., previous admission, EMS record, old EKG, old radiological studies, urgent care reports/EKG's, detention records)? Report findings @ -No old charts were reviewed Differential Diagnosis (chest pain, altered mental status, abdominal pain women, abdominal pain men, vaginal bleeding, weakness, fever, dyspnea, syncope, headache, dizziness, GI bleed, back pain, seizure, CVA, palpatations, mental health, musculoskeletal)? @ -Differential Mental Health Depression, anxiety, bipolar, psychosis, schizophrenia, borderline personality, situational depression, adjustment disorder, behavioral disorder, brain tumor, malingering, substance abuse, encephalopathy, medication reaction, dementia, hypothyroidism, degenerative neurologic disorder, lupus.... This is not meant to be all-inclusive list EKG interpreted by me (3pts min.). @ -As above X-rays interpreted by me (1pt min.). @ -None done CT interpreted by me (1pt min.). @ -None done U/S interpreted by me (1pt. min.). @ -None done What testing was considered but not performed or refused? (CT, X-rays, U/S, labs)? Why? @ -None What meds were considered but not given or refused? Why? @ -Tried giving Cogentin for tremors and Toradol for pain, patient refused 68-year-old female presenting with chief complaint of tremors. She tells me that she stopped taking her Cogentin because "it doesn't work". On exam patient is initially resting comfortably, after she begins to talk about her tremors she begins thrashing her head back and forth. Lab work is ordered and I observed the patient several times resting comfortably with no tremors. She is also complaining of chronic pain in her legs and neck. Lab work is essentially unremarkable. I offered to give the patient Toradol for pain and Cogentin for tremors. She refused saying "give me something that works". She then went on to tell me that there is "electrical stuff in my body". She states that this was implanted many years ago but we can't see it. EPS evaluation was ordered and patient is awaiting eval by EPS. (Tio Archuleta) - Lab Data Lab Results 06/26/23 06/26/23 06/26/23 Range/Units 19:52 19:58 19:58 WBC 7.8 (3.8-10.6) k/uL RBC 4.57 (3.80-5.40) m/uL Hgb 13.8 (11.4-16.0) gm/dL Hct 41.5 (34.0-46.0) % MCV 90.7 (80.0-100.0) fL MCH 30.1 (25.0-35.0) pg MCHC 33.2 (31.0-37.0) g/dL RDW 18.0 H (11.5-15.5) % Plt Count 275 (150-450) k/uL MPV 7.3 Neutrophils % 53 % Lymphocytes % 34 % Monocytes % 7 % Eosinophils % 2 % Basophils % 1 % Neutrophils # 4.1 (1.3-7.7) k/uL Lymphocytes # 2.7 (1.0-4.8) k/uL Monocytes # 0.6 (0-1.0) k/uL Eosinophils # 0.1 (0-0.7) k/uL Basophils # 0.1 (0-0.2) k/uL Anisocytosis Slight PT 10.1 (9.0-12.0) sec INR 1.0 (<1.2) APTT 25.9 (22.0-30.0) sec Sodium (137-145) mmol/L Potassium (3.5-5.1) mmol/L Chloride (98-107) mmol/L Carbon Dioxide (22-30) mmol/L Anion Gap mmol/L BUN (7-17) mg/dL Creatinine (0.52-1.04) mg/dL Est GFR (CKD-EPI)AfAm (>60 ml/min/1.73 sqM) Est GFR (CKD-EPI)NonAf (>60 ml/min/1.73 sqM) Glucose (74-99) mg/dL Calcium (8.4-10.2) mg/dL Total Bilirubin (0.2-1.3) mg/dL AST (14-36) U/L ALT (4-34) U/L Alkaline Phosphatase (38-126) U/L Creatine Kinase (30-135) U/L Total Protein (6.3-8.2) g/dL Albumin (3.5-5.0) g/dL Urine Color Colorless Urine Appearance Clear (Clear) Urine pH 6.0 (5.0-8.0) Ur Specific [place] 1.007 (1.001-1.035) Urine Protein Negative (Negative) Urine Glucose (UA) Negative (Negative) Urine Ketones Negative (Negative) Urine Blood Negative (Negative) Urine Nitrite Negative (Negative) Urine Bilirubin Negative (Negative) Urine Urobilinogen <2.0 (<2.0) mg/dL Ur Leukocyte Esterase Moderate H (Negative) Urine RBC 2 (0-5) /hpf Urine WBC 7 H (0-5) /hpf Ur Squamous Epith Cells 2 (0-4) /hpf Urine Bacteria Rare H (None) /hpf Urine Opiates Screen Detected H (NotDetected) Ur Oxycodone Screen Not Detected (NotDetected) Urine Methadone Screen Not Detected (NotDetected) Ur Propoxyphene Screen Not Detected (NotDetected) Ur Barbiturates Screen Not Detected (NotDetected) U Tricyclic Antidepress Not Detected (NotDetected) Ur Phencyclidine Scrn Not Detected (NotDetected) Ur Amphetamines Screen Not Detected (NotDetected) U Methamphetamines Scrn Not Detected (NotDetected) U Benzodiazepines Scrn Not Detected (NotDetected) Urine Cocaine Screen Not Detected (NotDetected) U Marijuana (THC) Screen Not Detected (NotDetected) 06/26/23 Range/Units 19:58 WBC (3.8-10.6) k/uL RBC (3.80-5.40) m/uL Hgb (11.4-16.0) gm/dL Hct (34.0-46.0) % MCV (80.0-100.0) fL MCH (25.0-35.0) pg MCHC (31.0-37.0) g/dL RDW (11.5-15.5) % Plt Count (150-450) k/uL MPV Neutrophils % % Lymphocytes % % Monocytes % % Eosinophils % % Basophils % % Neutrophils # (1.3-7.7) k/uL Lymphocytes # (1.0-4.8) k/uL Monocytes # (0-1.0) k/uL Eosinophils # (0-0.7) k/uL Basophils # (0-0.2) k/uL Anisocytosis PT (9.0-12.0) sec INR (<1.2) APTT (22.0-30.0) sec Sodium 131 L (137-145) mmol/L Potassium 4.8 (3.5-5.1) mmol/L Chloride 99 (98-107) mmol/L Carbon Dioxide 22 (22-30) mmol/L Anion Gap 10 mmol/L BUN 14 (7-17) mg/dL Creatinine 0.64 (0.52-1.04) mg/dL Est GFR (CKD-EPI)AfAm >90 (>60 ml/min/1.73 sqM) Est GFR (CKD-EPI)NonAf >90 (>60 ml/min/1.73 sqM) Glucose 108 H (74-99) mg/dL Calcium 9.5 (8.4-10.2) mg/dL Total Bilirubin 0.5 (0.2-1.3) mg/dL AST 27 (14-36) U/L ALT 19 (4-34) U/L Alkaline Phosphatase 59 (38-126) U/L Creatine Kinase 43 (30-135) U/L Total Protein 7.1 (6.3-8.2) g/dL Albumin 4.3 (3.5-5.0) g/dL Urine Color Urine Appearance (Clear) Urine pH (5.0-8.0) Ur Specific [place] (1.001-1.035) Urine Protein (Negative) Urine Glucose (UA) (Negative) Urine Ketones (Negative) Urine Blood (Negative) Urine Nitrite (Negative) Urine Bilirubin (Negative) Urine Urobilinogen (<2.0) mg/dL Ur Leukocyte Esterase (Negative) Urine RBC (0-5) /hpf Urine WBC (0-5) /hpf Ur Squamous Epith Cells (0-4) /hpf Urine Bacteria (None) /hpf Urine Opiates Screen (NotDetected) Ur Oxycodone Screen (NotDetected) Urine Methadone Screen (NotDetected) Ur Propoxyphene Screen (NotDetected) Ur Barbiturates Screen (NotDetected) U Tricyclic Antidepress (NotDetected) Ur Phencyclidine Scrn (NotDetected) Ur Amphetamines Screen (NotDetected) U Methamphetamines Scrn (NotDetected) U Benzodiazepines Scrn (NotDetected) Urine Cocaine Screen (NotDetected) U Marijuana (THC) Screen (NotDetected) Disposition <Tio Archuleta - Last Filed: 06/27/23 03:48> Is patient prescribed a controlled substance at d/c from ED?: No Time of Disposition: 08:36 <Bebeto Baez - Last Filed: 06/27/23 08:37> Clinical Impression: Occasional tremors Disposition: HOME SELF-CARE Condition: Good Instructions (If sedation given, give patient instructions): Tremors (ED) Referrals: Yanni Max MD [Primary Care Provider] - 1-2 days
[2023-06-27] MEDS ORDERED: LORazepam 2 MG/ML INJ IV STA (01:43)
[2023-06-27] MEDS ORDERED: HYDROcodone/APAP 5-325MG 1 EACH TAB PO STA (04:10)
[2023-06-27] MEDS: BENZTROPINE MESYLATE 0.5 MG TAB PO SCH (09:07)
[2023-06-27 09:11] VITALS: BP 122/84; PULSE 78; RESP 18
== END 2023-06-27 09:21 | disposition home or self-care (01) ==
LOC: EC 19:13
DX: R25.1 Tremor, unspecified (principal); I10 Essential (primary) hypertension; J45.909 Unspecified asthma, uncomplicated; K21.9 Gastro-esophageal reflux disease without esophagitis; F32.A Depression, unspecified; F41.9 Anxiety disorder, unspecified; F17.200 Nicotine dependence, unspecified, uncomplicated; Z79.899 Other long term (current) drug therapy; Z88.1 Allergy status to other antibiotic agents; Z88.6 Allergy status to analgesic agent; Z86.73 Personal history of transient ischemic attack (TIA), and cerebral infarction without residual deficits
CPT/HCPCS: 82075; 36415; 80053; 82550; 85025; 85610; 85730; 81001; 80306; 99285; 96374; 96376; J2060 ×2

== ENCOUNTER 2023-06-28 10:17 | Emergency (ER) | payer MEDICARE, OTHER ==
[2023-06-28 10:21] VITALS: RESP 20; TEMP 98.3
[2023-06-28] MEDS ORDERED: LORazepam 2 MG/ML INJ IV STA (10:29)
[2023-06-28] MEDS ORDERED: SODIUM CHLORIDE 0.9% 1,000 ML IV STA (10:29)
--- NOTE | 2023-06-28 10:43 | ED ---
Recheck HPI - General Chief Complaint: Recheck/Abnormal Lab/Rx Stated Complaint: TREMORS Time Seen by Provider: 06/28/23 10:19 Source: patient, EMS, RN notes reviewed Mode of arrival: EMS Limitations: no limitations - History of Present Illness Initial Comments: This is a 68-year-old female who presents to the emergency department for tremors. Patient has been evaluated here for tremors multiple times in the past. She was most recently here 2 days ago and discharged home. She used to be on Cogentin, but does not take this, as she states that it is not effective. States that the only thing that seems to help is Ativan. Patient also complains of chronic pain in the head and neck. Additionally, states that she feels dehydrated and would like IV fluids. Denies any fevers, chills, sore throat, cough, dyspnea, chest pain, palpitation s, abdominal pain, nausea, vomiting, or diarrhea. MD Complaint: other (tremors) - Related Data Home Medications Medication Instructions Recorded Confirmed Losartan Potassium [Cozaar] 100 mg PO DAILY 10/16/21 05/20/23 Omeprazole 40 mg PO AC-BRKFST 10/16/21 05/20/23 Albuterol Inhaler [Ventolin Hfa 1 - 2 puff INHALATION RT-Q6H PRN 08/31/22 05/20/23 Inhaler] DULoxetine HCL [Cymbalta] 60 mg PO DAILY 08/31/22 05/20/23 Ergocalciferol [Vitamin D2 (1250 1,250 mcg PO Q7D 08/31/22 05/20/23 Mcg = 40175 Iu)] Gabapentin 300 mg PO TID 08/31/22 05/20/23 Metoprolol Succinate (ER) [Toprol 25 mg PO DAILY 08/31/22 05/20/23 XL] traZODone HCL 100 mg PO HS 08/31/22 05/20/23 Cetirizine HCl [Zyrtec] 10 mg PO DAILY PRN 12/17/22 05/20/23 Clotrimazole/Betameth Cream 1 applic TOPICAL BID PRN 05/20/23 05/20/23 [Lotrisone] Furosemide [Lasix] 40 mg PO BID 05/20/23 05/20/23 Previous Rx's Medication Instructions Recorded Rosuvastatin [Crestor] 10 mg PO HS #30 tab 10/20/19 levETIRAcetam [Keppra] 500 mg PO BID #60 tab 10/20/19 Benztropine Mesylate [Cogentin] 0.5 mg PO HS #30 tab 05/23/23 DULoxetine HCL [Cymbalta] 30 mg PO HS #90 cap 05/23/23 HYDROcodone/APAP 10-325MG [[place] 1 tab PO Q8H #0 05/23/23 10-325] methocarbamoL [Methocarbamol] 500 mg PO BID #0 05/23/23 Benztropine Mesylate [Cogentin] 0.5 mg PO BID #60 tablet 06/05/23 Allergies Allergy/AdvReac Type Severity Reaction Status Date / Time nitrofurantoin AdvReac Abdominal Verified 06/28/23 10:21 [From Macrobid] Pain/Nausea/Vomiting NSAIDS (Non-Steroidal AdvReac Nausea & Verified 06/28/23 10:21 Anti-Inflamma Vomiting Review of Systems ROS Statement: Those systems with pertinent positive or pertinent negative responses have been documented in the HPI. ROS Other: All systems not noted in ROS Statement are negative. 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 hx. colon polyps, History of Any Multi-Drug Resistant Organisms: None Reported Past Surgical History: Adenoidectomy, Back Surgery, Breast Surgery, Joint Replacement, Orthopedic Surgery, Tonsillectomy Additional Past Surgical History / Comment(s): LEFT HAND SURGERY, BILATERAL ORIF WRISTS , RIGHT GANGLION CYST REMOVED, LEEP, COLONOSCOPY, EGD, BILATERAL CATARACTS WITH LENS IMPLANTS, RIGHT BREAST BIOPSY, BACK SURGERY X2, ONE WAS A LAMINECTOMY, LEFT KNEE AND LEFT HIP REPLACEMENTS, PAIN INJECTION FOR BACK PAIN. Past Anesthesia/Blood Transfusion Reactions: No Reported Reaction Past Psychological History: Anxiety, Depression Smoking Status: Current every day smoker Past Alcohol Use History: Occasional Past Drug Use History: None Reported - Past Family History Brother(s) Family Medical History: Cancer Additional Family Medical History / Comment(s): PANCREATITIS. Mother Family Medical History: CVA/TIA, Deep Vein Thrombosis (DVT), Hypertension, Memory Impairment Additional Family Medical History / Comment(s): of Alzheimer's at age 70. Father Family Medical History: Coronary Artery Disease (CAD), CVA/TIA, Diabetes Mellitus, Hypertension Additional Family Medical History / Comment(s): at age 68. General Exam Limitations: no limitations General appearance: alert, in no apparent distress Head exam: Present: atraumatic, normocephalic, normal inspection Respiratory exam: Present: normal lung sounds bilaterally. Absent: respiratory distress, wheezes, rales, rhonchi, stridor Cardiovascular Exam: Present: regular rate, normal rhythm, normal heart sounds. Absent: systolic murmur, diastolic murmur, rubs, gallop, clicks Neurological exam: Present: alert, oriented X3, CN II-XII intact Psychiatric exam: Present: normal affect, normal mood Skin exam: Present: warm, dry, intact, normal color. Absent: rash Course Vital Signs 06/28/23 06/28/23 10:18 11:13 Temperature 98.3 F Pulse Rate 97 98 Respiratory 20 20 Rate Blood Pressure 138/96 136/48 O2 Sat by Pulse 95 96 Oximetry Medical Decision Making - Medical Decision Making This is a 68-year-old female who presents to the emergency department for tremors. Was pt. sent in by a medical professional or institution? @ -No Did you speak to anyone other than the patient for history? @ -No Did you review nursing and triage notes? @ -Yes, and I agree, it is accurate with regards to the patient's symptoms. Were old charts reviewed? @ -No Differential Diagnosis? @ -Differential Tremors: Neurologic problem, psychiatric problem, medication side effect, this is not meant to be an all-inclusive list. EKG interpreted by me (3pts min.)? @ -Not obtained X-rays interpreted by me (1pt min.)? @ -Not obtained CT interpreted by me (1pt min.)? @ -Not obtained U/S interpreted by me (1pt. min.)? @ -Not obtained What testing was considered but not performed? (CT, X-rays, U/S, labs)? Why? @ -None What meds were considered but not given? Why? @ -None Did you discuss the management of the patient with other professionals? @ -No Did you reconcile home meds? @ -No Was smoking cessation discussed for >3mins.? @ -No Was critical care preformed (if so, how long)? @ -No Were there social determinants of health that impacted care today? How? (Homelessness, low income, unemployed, alcoholism, drug addiction, transportation, low edu. Level, literacy, decrease access to med. care, nursing home, rehab)? @ -No Was there de-escalation of care discussed even if they declined? (Discuss DNR or withdrawal of care, Hospice)? @ -No What co-morbidities impacted this encounter? (DM, HTN, Smoking, COPD, CAD, Cancer, CVA, Hep., AIDS, mental health diagnosis, sleep apnea, morbid obesity)? @ -Fibromyalgia, seizure disorder, history of CVA/TIA Was patient admitted / discharged? @ -Discharged. Lab work obtained and found to be nonactionable. Patient given IV fluids and a dose of Ativan. When I went to speak with the patient, her tremors increased significantly. This also occurred while others were in the examination room with her. After myself or other staff members would leave the room, the patient was observed to be sleeping comfortably without any active tremors, suggesting that the patient is doing this intentionally. Patient continues to request admission for tremors, and we advised that this is a long- standing chronic problem for her, and she does not meet admission criteria. She is advised that she needs to follow-up with her neurologist and primary care provider for further evaluation and management. Patient discharged home in a taxi in stable condition. Undiagnosed new problem with uncertain prognosis? @ -None Drug Therapy requiring intensive monitoring for toxicity (Heparin, Nitro, Insulin, Cardizem)? @ -None Were any procedures done? @ -None Diagnosis/symptom? @ -Tremors Acute, or Chronic, or Acute on Chronic? @ -Chronic Uncomplicated (without systemic symptoms) or Complicated (systemic symptoms)? @ -Uncomplicated Side effects of treatment? @ -None Exacerbation, Progression, or Severe Exacerbation] @ -Stable Poses a threat to life or bodily function? @ -No Return precautions reviewed in depth, the patient is instructed to return to the emergency department with any new, worsening, or concerning symptoms. Patient verbalized understanding. This case was discussed in detail with the attending ED physician, Dr. Baez. Presentation, findings, and treatment plan discussed in detail as well. - Lab Data Result diagrams: 06/28/23 10:32 06/28/23 10:32 Lab Results 06/28/23 06/28/23 06/28/23 Range/Units 10:32 10:32 10:32 WBC 6.5 (3.8-10.6) k/uL RBC 4.76 (3.80-5.40) m/uL Hgb 14.1 (11.4-16.0) gm/dL Hct 43.2 (34.0-46.0) % MCV 90.9 (80.0-100.0) fL MCH 29.6 (25.0-35.0) pg MCHC 32.6 (31.0-37.0) g/dL RDW 18.0 H (11.5-15.5) % Plt Count 292 (150-450) k/uL MPV 7.6 Neutrophils % 62 % Lymphocytes % 25 % Monocytes % 8 % Eosinophils % 3 % Basophils % 1 % Neutrophils # 4.0 (1.3-7.7) k/uL Lymphocytes # 1.6 (1.0-4.8) k/uL Monocytes # 0.5 (0-1.0) k/uL Eosinophils # 0.2 (0-0.7) k/uL Basophils # 0.0 (0-0.2) k/uL Anisocytosis Slight Sodium 136 L (137-145) mmol/L Potassium 4.7 (3.5-5.1) mmol/L Chloride 101 (98-107) mmol/L Carbon Dioxide 28 (22-30) mmol/L Anion Gap 7 mmol/L BUN 10 (7-17) mg/dL Creatinine 0.64 (0.52-1.04) mg/dL Est GFR (CKD-EPI)AfAm >90 (>60 ml/min/1.73 sqM) Est GFR (CKD-EPI)NonAf >90 (>60 ml/min/1.73 sqM) Glucose 141 H (74-99) mg/dL Plasma Lactic Acid Boni 1.3 (0.7-2.0) mmol/L Calcium 9.8 (8.4-10.2) mg/dL Total Bilirubin 0.4 (0.2-1.3) mg/dL AST 23 (14-36) U/L ALT 19 (4-34) U/L Alkaline Phosphatase 57 (38-126) U/L Total Protein 6.7 (6.3-8.2) g/dL Albumin 4.2 (3.5-5.0) g/dL Disposition Clinical Impression: Tremor Disposition: HOME SELF-CARE Instructions (If sedation given, give patient instructions): Tremors (ED) Additional Instructions: Return to the emergency department with any new, worsening, or concerning symptoms. Follow up with your primary care provider in 1-2 days. Is patient prescribed a controlled substance at d/c from ED?: No Referrals: Yanni Max MD [Primary Care Provider] - 1-2 days
[2023-06-28 10:44] LABS: Anisocytosis Slight; Basophils % (A) 1 %; Eosinophils # (A) 0.2 k/uL (0-0.7); Eosinophils % (A) 3 %; HCT 43.2 % (34.0-46.0); HGB 14.1 gm/dL (11.4-16.0); Lymphocytes # (A) 1.6 k/uL (1.0-4.8); Lymphocytes % (A) 25 %; MCH 29.6 pg (25.0-35.0); MCHC 32.6 g/dL (31.0-37.0); MCV 90.9 fL (80.0-100.0); Mean Platelet Volume 7.6; Monocytes # (A) 0.5 k/uL (0-1.0); Monocytes % (A) 8 %; Neutrophils % (A) 62 %; Platelet Count 292 k/uL (150-450); RBC 4.76 m/uL (3.80-5.40); WBC 6.5 k/uL (3.8-10.6)
[2023-06-28 11:00] LABS: ALT 19 U/L (4-34); AST 23 U/L (14-36); African American GFR (CKD) >90 (>60 ml/min/1.73 sqM); Albumin 4.2 g/dL (3.5-5.0); Alkaline Phosphatase 57 U/L (38-126); Anion Gap 7 mmol/L; Blood Urea Nitrogen 10 mg/dL (7-17); Calcium 9.8 mg/dL (8.4-10.2); Carbon Dioxide 28 mmol/L (22-30); Chloride 101 mmol/L (98-107); Glucose 141 mg/dL (74-99); Non-African American GFR(CKD) >90 (>60 ml/min/1.73 sqM); Potassium 4.7 mmol/L (3.5-5.1); Sodium 136 mmol/L (137-145); Total Bilirubin 0.4 mg/dL (0.2-1.3); Total Protein 6.7 g/dL (6.3-8.2)
[2023-06-28 11:14] VITALS: BP 136/48; PULSE 98
== END 2023-06-28 12:07 | disposition home or self-care (01) ==
LOC: EC 10:17
DX: R25.1 Tremor, unspecified (principal); J45.909 Unspecified asthma, uncomplicated; K21.9 Gastro-esophageal reflux disease without esophagitis; I10 Essential (primary) hypertension; M19.90 Unspecified osteoarthritis, unspecified site; F41.9 Anxiety disorder, unspecified; F32.A Depression, unspecified; F17.200 Nicotine dependence, unspecified, uncomplicated; Z86.73 Personal history of transient ischemic attack (TIA), and cerebral infarction without residual deficits; Z79.899 Other long term (current) drug therapy; Z79.1 Long term (current) use of non-steroidal anti-inflammatories (NSAID); Z88.6 Allergy status to analgesic agent; Z88.8 Allergy status to other drugs, medicaments and biological substances; Z88.1 Allergy status to other antibiotic agents
CPT/HCPCS: 36415; 80053; 83605; 85025; 99284; 96374; 96361; J2060

== ENCOUNTER 2023-06-29 10:18 | Emergency (ER) | payer MEDICARE, OTHER ==
[2023-06-29 10:30] VITALS: BP 155/83; PULSE 86; RESP 20; TEMP 98
--- NOTE | 2023-06-29 11:26 | ED ---
Recheck HPI - General Chief Complaint: Recheck/Abnormal Lab/Rx Stated Complaint: tremors and burning pain Time Seen by Provider: 06/29/23 11:06 Source: patient, RN notes reviewed Mode of arrival: ambulatory Limitations: no limitations - History of Present Illness Initial Comments: 68-year-old female presents emergency Department with chief complaint of t remors. This is an ongoing chronic issue. Patient has been told this is most likely psychological she was scheduled see her neurologist today but canceled it came the emergency department. Patient has had several recent ER visits patient has discussed this with primary care physician she's had extensive workup with no acute findings. - Related Data Home Medications Medication Instructions Recorded Confirmed Losartan Potassium [Cozaar] 100 mg PO DAILY 10/16/21 05/20/23 Omeprazole 40 mg PO AC-BRKFST 10/16/21 05/20/23 Albuterol Inhaler [Ventolin Hfa 1 - 2 puff INHALATION RT-Q6H PRN 08/31/22 05/20/23 Inhaler] DULoxetine HCL [Cymbalta] 60 mg PO DAILY 08/31/22 05/20/23 Ergocalciferol [Vitamin D2 (1250 1,250 mcg PO Q7D 08/31/22 05/20/23 Mcg = 93339 Iu)] Gabapentin 300 mg PO TID 08/31/22 05/20/23 Metoprolol Succinate (ER) [Toprol 25 mg PO DAILY 08/31/22 05/20/23 XL] traZODone HCL 100 mg PO HS 08/31/22 05/20/23 Cetirizine HCl [Zyrtec] 10 mg PO DAILY PRN 12/17/22 05/20/23 Clotrimazole/Betameth Cream 1 applic TOPICAL BID PRN 05/20/23 05/20/23 [Lotrisone] Furosemide [Lasix] 40 mg PO BID 05/20/23 05/20/23 Previous Rx's Medication Instructions Recorded Rosuvastatin [Crestor] 10 mg PO HS #30 tab 10/20/19 levETIRAcetam [Keppra] 500 mg PO BID #60 tab 10/20/19 Benztropine Mesylate [Cogentin] 0.5 mg PO HS #30 tab 05/23/23 DULoxetine HCL [Cymbalta] 30 mg PO HS #90 cap 05/23/23 HYDROcodone/APAP 10-325MG [[place] 1 tab PO Q8H #0 05/23/23 10-325] methocarbamoL [Methocarbamol] 500 mg PO BID #0 05/23/23 Benztropine Mesylate [Cogentin] 0.5 mg PO BID #60 tablet 06/05/23 Allergies Allergy/AdvReac Type Severity Reaction Status Date / Time nitrofurantoin AdvReac Abdominal Verified 06/29/23 10:30 [From Macrobid] Pain/Nausea/Vomiting NSAIDS (Non-Steroidal AdvReac Nausea & Verified 06/29/23 10:30 Anti-Inflamma Vomiting Review of Systems ROS Statement: Those systems with pertinent positive or pertinent negative responses have been documented in the HPI. ROS Other: All systems not noted in ROS Statement are negative. 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 hx. colon polyps, History of Any Multi-Drug Resistant Organisms: None Reported Past Surgical History: Adenoidectomy, Back Surgery, Breast Surgery, Joint Replacement, Orthopedic Surgery, Tonsillectomy Additional Past Surgical History / Comment(s): LEFT HAND SURGERY, BILATERAL ORIF WRISTS , RIGHT GANGLION CYST REMOVED, LEEP, COLONOSCOPY, EGD, BILATERAL CATARACTS WITH LENS IMPLANTS, RIGHT BREAST BIOPSY, BACK SURGERY X2, ONE WAS A LAMINECTOMY, LEFT KNEE AND LEFT HIP REPLACEMENTS, PAIN INJECTION FOR BACK PAIN. Past Anesthesia/Blood Transfusion Reactions: No Reported Reaction Past Psychological History: Anxiety, Depression Smoking Status: Current every day smoker Past Alcohol Use History: Occasional Past Drug Use History: None Reported - Past Family History Brother(s) Family Medical History: Cancer Additional Family Medical History / Comment(s): PANCREATITIS. Mother Family Medical History: CVA/TIA, Deep Vein Thrombosis (DVT), Hypertension, Memory Impairment Additional Family Medical History / Comment(s): of Alzheimer's at age 70. Father Family Medical History: Coronary Artery Disease (CAD), CVA/TIA, Diabetes Mellitus, Hypertension Additional Family Medical History / Comment(s): at age 68. General Exam Limitations: no limitations General appearance: alert, in no apparent distress, other (Purposeful intermittent shaking) Head exam: Present: atraumatic, normocephalic, normal inspection Eye exam: Present: normal appearance, PERRL, EOMI. Absent: scleral icterus, conjunctival injection, periorbital swelling ENT exam: Present: normal exam, normal oropharynx, mucous membranes moist Neck exam: Present: normal inspection, full ROM. Absent: tenderness, meningismus, lymphadenopathy Respiratory exam: Present: normal lung sounds bilaterally. Absent: respiratory distress, wheezes, rales, rhonchi, stridor Cardiovascular Exam: Present: regular rate, normal rhythm, normal heart sounds. Absent: systolic murmur, diastolic murmur, rubs, gallop, clicks Neurological exam: Present: alert, oriented X3, CN II-XII intact Course Vital Signs 06/29/23 10:28 Temperature 98 F Pulse Rate 86 Respiratory 20 Rate Blood Pressure 155/83 O2 Sat by Pulse 99 Oximetry Medical Decision Making - Medical Decision Making Was pt. sent in by a medical professional or institution (, PA, FITTER MACHINIST, urgent care, hospital, or longterm...) When possible be specific @ -No Did you speak to anyone other than the patient for history (EMS, parent, family, police, friend...)? What history was obtained from this source @ -No Did you review nursing and triage notes (agree or disagree)? Why? @ -I reviewed and agree with nursing and triage notes Were old charts reviewed (outside hosp., previous admission, EMS record, old EKG, old radiological studies, urgent care reports/EKG's, longterm records)? Report findings @ -Review prior charting including a records, [place] Differential Diagnosis (chest pain, altered mental status, abdominal pain women, abdominal pain men, vaginal bleeding, weakness, fever, dyspnea, syncope, headache, dizziness, GI bleed, back pain, seizure, CVA, palpatations, mental health, musculoskeletal)? @ -Tremor, psychogenic, medication issue EKG interpreted by me (3pts min.). @ -None X-rays interpreted by me (1pt min.). @ -None done CT interpreted by me (1pt min.). @ -None done U/S interpreted by me (1pt. min.). @ -None done What testing was considered but not performed or refused? (CT, X-rays, U/S, labs)? Why? @ -None What meds were considered but not given or refused? Why? @ -None Did you discuss the management of the patient with other professionals (professionals i.e. , PA, FITTER MACHINIST, lab, RT, psych nurse, social media campaign manager, business account leader, teacher, assistant chief nursing officer, field case manager)? Give summary @ -No Was smoking cessation discussed for >3mins.? @ -No Was critical care preformed (if so, how long)? @ -No Were there social determinants of health that impacted care today? How? (Homelessness, low income, unemployed, alcoholism, drug addiction, transportation, low edu. Level, literacy, decrease access to med. care, correction, rehab)? @ -No Was there de-escalation of care discussed even if they declined (Discuss DNR or withdrawal of care, Hospice)? DNR status @ -No What co-morbidities impacted this encounter? (DM, HTN, Smoking, COPD, CAD, Cancer, CVA, ARF, Chemo, Hep., AIDS, mental health diagnosis, sleep apnea, morbid obesity)? @ -None Was patient admitted / discharged? Hospital course, mention meds given and route, prescriptions, significant lab abnormalities, going to OR and other pertinent info. @ -Discharge patient had extensive workup patient was scheduled to see neurology but started on the ER today with no new complaints or worsening symptoms. Patient advised to follow-up PCP, neurology return parameters were discussed. Undiagnosed new problem with uncertain prognosis? @ -No Drug Therapy requiring intensive monitoring for toxicity (Heparin, Nitro, Insulin, Cardizem)? @ -No Were any procedures done? 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 @ -Chronic Uncomplicated (without systemic symptoms) or Complicated (systemic symptoms)? @ -Uncomplicated Side effects of treatment? @ -No Exacerbation, Progression, or Severe Exacerbation? @ -No Poses a threat to life or bodily function? How? (Chest pain, [place], [place], pneumonia, PE, COPD, DKA, ARF, appy, cholecystitis, CVA, Diverticulitis, Homicidal, Suicidal, threat to staff... and all critical care pts) @ -No Disposition Clinical Impression: Tremor, Psychogenic tremor Disposition: HOME SELF-CARE Condition: Stable Additional Instructions: Please return to the Emergency Department if symptoms worsen or any other concerns. Is patient prescribed a controlled substance at d/c from ED?: No Referrals: Yanni Max MD [Primary Care Provider] - 1-2 days Alek Denis MD [REFERRING] - 1-2 days Time of Disposition: 11:26
== END 2023-06-29 12:24 | disposition home or self-care (01) ==
LOC: EC 10:18
DX: G25.2 Other specified forms of tremor (principal); J45.909 Unspecified asthma, uncomplicated; K21.9 Gastro-esophageal reflux disease without esophagitis; E78.5 Hyperlipidemia, unspecified; I10 Essential (primary) hypertension; M19.90 Unspecified osteoarthritis, unspecified site; Z86.73 Personal history of transient ischemic attack (TIA), and cerebral infarction without residual deficits; F41.9 Anxiety disorder, unspecified; F32.A Depression, unspecified; F17.200 Nicotine dependence, unspecified, uncomplicated; Z88.6 Allergy status to analgesic agent; Z88.8 Allergy status to other drugs, medicaments and biological substances; Z79.899 Other long term (current) drug therapy
CPT/HCPCS: 99283

== ENCOUNTER 2023-07-13 14:44 | Emergency (ER) | payer MEDICARE, OTHER ==
[2023-07-13 15:13] VITALS: BP 196/73; PULSE 81; RESP 18; TEMP 98
[2023-07-13] MEDS ORDERED: ORPHENADRINE 30 MG/ML 2 ML VIAL IM STA (17:33)
--- NOTE | 2023-07-13 20:41 | ED ---
Recheck HPI - General Chief Complaint: Recheck/Abnormal Lab/Rx Stated Complaint: tremmors Time Seen by Provider: 07/13/23 16:36 Source: patient Mode of arrival: wheelchair - History of Present Illness Initial Comments: This patient is 68-year-old woman here complaining of having pains throughout her body and that this is causing her to shake. She states that the symptoms have been going on months or years. She believes that it is related to wires that were put into her body. The patient denies any acute injury. MD Complaint: other -: month(s) Returns Today for: other Symptoms Since Prior Visit: no new symptoms Associated Symptoms: none - Related Data Home Medications Medication Instructions Recorded Confirmed Losartan Potassium [Cozaar] 100 mg PO DAILY 10/16/21 07/14/23 Omeprazole 40 mg PO AC-BRKFST 10/16/21 07/14/23 Albuterol Inhaler [Ventolin Hfa 1 - 2 puff INHALATION RT-Q6H PRN 08/31/22 07/14/23 Inhaler] Ergocalciferol [Vitamin D2 (1250 1,250 mcg PO Q7D 08/31/22 07/14/23 Mcg = 42085 Iu)] Gabapentin 300 mg PO BID 08/31/22 07/14/23 Metoprolol Succinate (ER) [Toprol 25 mg PO DAILY 08/31/22 07/14/23 XL] Cetirizine HCl [Zyrtec] 10 mg PO DAILY PRN 12/17/22 07/14/23 Clotrimazole/Betameth Cream 1 applic TOPICAL BID PRN 05/20/23 07/14/23 [Lotrisone] Furosemide [Lasix] 40 mg PO BID 05/20/23 07/14/23 Budesonide/Formoterol Fumarate 2 puff INHALATION RT-BID 06/29/23 07/14/23 [Symbicort 160-4.5 Mcg Inhaler] methocarbamoL 500 mg PO TID 07/14/23 07/14/23 Previous Rx's Medication Instructions Recorded Rosuvastatin [Crestor] 10 mg PO HS #30 tab 10/20/19 levETIRAcetam [Keppra] 500 mg PO BID #60 tab 10/20/19 HYDROcodone/APAP 10-325MG [[place] 1 tab PO Q8H #0 05/23/23 10-325] Nicotine 21Mg/24Hr Patch [Habitrol] 1 patch TRANSDERM DAILY #0 patch 07/02/23 DULoxetine HCL [Cymbalta] 60 mg PO DAILY 30 Days #30 cap 07/19/23 risperiDONE [RisperDAL] 1 mg PO HS 30 Days #30 tab 07/19/23 traZODone HCL 100 mg PO HS 30 Days #30 tab 07/19/23 Allergies Allergy/AdvReac Type Severity Reaction Status Date / Time nitrofurantoin AdvReac Abdominal Verified 07/14/23 22:14 [From Macrobid] Pain/Nausea/Vomiting NSAIDS (Non-Steroidal AdvReac Nausea & Verified 07/14/23 22:14 Anti-Inflamma Vomiting Review of Systems ROS Statement: Those systems with pertinent positive or pertinent negative responses have been documented in the HPI. ROS Other: All systems not noted in ROS Statement are negative. Constitutional: Denies: fever, weakness Respiratory: Denies: cough, dyspnea Cardiovascular: Denies: chest pain, palpitations, edema Gastrointestinal: Denies: abdominal pain, vomiting, diarrhea Genitourinary: Denies: dysuria, hematuria Musculoskeletal: Reports: back pain, arthralgia, myalgia Skin: Denies: rash Neurological: Denies: weakness, numbness, paresthesias Psychiatric: Reports: other (Delusions) Past Medical History Past Medical History: Asthma, CVA/TIA, Eye Disorder, Fibromyalgia, GERD/Reflux, Hyperlipidemia, Hypertension, Memory Impairment, Musculoskeletal Disorder, Osteoarthritis (OA), Seizure Disorder Additional Past Medical History / Comment(s): 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 hx. colon polyps, History of Any Multi-Drug Resistant Organisms: None Reported Past Surgical History: Adenoidectomy, Back Surgery, Breast Surgery, Joint Replacement, Orthopedic Surgery, Tonsillectomy Additional Past Surgical History / Comment(s): LEFT HAND SURGERY, BILATERAL ORIF WRISTS , RIGHT GANGLION CYST REMOVED, LEEP, COLONOSCOPY, EGD, BILATERAL CATARACTS WITH LENS IMPLANTS, RIGHT BREAST BIOPSY, BACK SURGERY X2, ONE WAS A LAMINECTOMY, LEFT KNEE AND LEFT HIP REPLACEMENTS, PAIN INJECTION FOR BACK PAIN. Past Anesthesia/Blood Transfusion Reactions: No Reported Reaction Past Psychological History: Anxiety, Depression Smoking Status: Current every day smoker Past Alcohol Use History: Occasional Past Drug Use History: None Reported - Past Family History Brother(s) Family Medical History: Cancer Additional Family Medical History / Comment(s): PANCREATITIS. Mother Family Medical History: CVA/TIA, Deep Vein Thrombosis (DVT), Hypertension, Memory Impairment Additional Family Medical History / Comment(s): of Alzheimer's at age 70. Father Family Medical History: Coronary Artery Disease (CAD), CVA/TIA, Diabetes Mellitus, Hypertension Additional Family Medical History / Comment(s): at age 68. General Exam General appearance: alert, in no apparent distress Head exam: Present: atraumatic, normocephalic Eye exam: Present: normal appearance Neck exam: Present: normal inspection, full ROM. Absent: tenderness, meni ngismus Respiratory exam: Present: normal lung sounds bilaterally. Absent: respiratory distress, wheezes, rales, rhonchi, stridor Cardiovascular Exam: Present: regular rate, normal rhythm, normal heart sounds. Absent: systolic murmur, diastolic murmur, rubs, gallop GI/Abdominal exam: Present: soft. Absent: tenderness, guarding, rebound Extremities exam: Present: normal inspection, normal capillary refill. Absent: pedal edema, calf tenderness Back exam: Present: normal inspection. Absent: CVA tenderness (R), CVA tenderness (L) Neurological exam: Present: alert, CN II-XII intact. Absent: motor sensory deficit Psychiatric exam: Present: anxious, other (The patient does express delusional thought content). Absent: depressed, agitated, homicidal ideation, suicidal ideation Skin exam: Present: warm, dry, intact, normal color. Absent: rash Course Vital Signs 07/13/23 15:05 Temperature 98 F Pulse Rate 81 Respiratory 18 Rate Blood Pressure 196/73 O2 Sat by Pulse 96 Oximetry Medical Decision Making - Medical Decision Making Was pt. sent in by a medical professional or institution (, PA, FACTORY CLERK, urgent care, hospital, or intermediate...) When possible be specific @ -Patient sent here from her long-term care facility to have evaluation Did you speak to anyone other than the patient for history (EMS, parent, family, police, friend...)? What history was obtained from this source @ -[No] Did you review nursing and triage notes (agree or disagree)? Why? @ -[I reviewed and agree with nursing and triage notes] Were old charts reviewed (outside hosp., previous admission, EMS record, old EKG, old radiological studies, urgent care reports/EKG's, intermediate records)? Report findings @ -[No old charts were reviewed] Differential Diagnosis (chest pain, altered mental status, abdominal pain women, abdominal pain men, vaginal bleeding, weakness, fever, dyspnea, syncope, headache, dizziness, GI bleed, back pain, seizure, CVA, palpatations, mental health, musculoskeletal)? @ -[Differential Mental Health Depression, anxiety, bipolar, psychosis, schizophrenia, borderline personality, situational depression, adjustment disorder, behavioral disorder, brain tumor, malingering, substance abuse, encephalopathy, medication reaction, dementia, hypothyroidism, degenerative neurologic disorder, lupus.... This is not meant to be all-inclusive list EKG interpreted by me (3pts min.). @ -[ X-rays interpreted by me (1pt min.). @ -[None done] CT interpreted by me (1pt min.). @ -[None done] U/S interpreted by me (1pt. min.). @ -[None done] What testing was considered but not performed or refused? (CT, X-rays, U/S, labs)? Why? @ -[None] What meds were considered but not given or refused? Why? @ -[None] Did you discuss the management of the patient with other professionals (professionals i.e. , PA, FACTORY CLERK, lab, RT, psych nurse, social service director, field sales consultant, teacher, policy officer, case maker)? Give summary @ -[I discussed the case with the EPS personnel, they saw and evaluated the patient and discussed with the psychiatrist. At this point patient appearing stable to continue outpatient care. She does have some delusional thought content but no suicidal or homicidal ideation Was smoking cessation discussed for >3mins.? @ -[No] Was critical care preformed (if so, how long)? @ -[No] Were there social determinants of health that impacted care today? How? (Homelessness, low income, unemployed, alcoholism, drug addiction, transportation, low edu. Level, literacy, decrease access to med. care, residential, rehab)? @ -[No] Was there de-escalation of care discussed even if they declined (Discuss DNR or withdrawal of care, Hospice)? DNR status @ -[No] What co-morbidities impacted this encounter? (DM, HTN, Smoking, COPD, CAD, Cancer, CVA, ARF, Chemo, Hep., AIDS, mental health diagnosis, sleep apnea, morbid obesity)? @ -[Previous psychiatric disease Was patient admitted / discharged? Hospital course, mention meds given and route, prescriptions, significant lab abnormalities, going to OR and other pertinent info. @ -[Patient is stable to continue as outpatient Undiagnosed new problem with uncertain prognosis? @ -[No] Drug Therapy requiring intensive monitoring for toxicity (Heparin, Nitro, Insulin, Cardizem)? @ -[No] Were any procedures done? @ -[No] Diagnosis/symptom? @ -[Psychotic disorder Acute, or Chronic, or Acute on Chronic? @ -[Chronic Uncomplicated (without systemic symptoms) or Complicated (systemic symptoms)? @ -[Uncomplicated Side effects of treatment? @ -[No] Exacerbation, Progression, or Severe Exacerbation? @ -[No] Poses a threat to life or bodily function? How? (Chest pain, [place], [place], pneumonia, PE, COPD, DKA, ARF, appy, cholecystitis, CVA, Diverticulitis, Homicidal, Suicidal, threat to staff... and all critical care pts) @ -[No] Disposition Clinical Impression: Tremor, Myalgia Disposition: HOME SELF-CARE Condition: Good Instructions (If sedation given, give patient instructions): Tremors (ED) Is patient prescribed a controlled substance at d/c from ED?: No Referrals: Yanni Max MD [Primary Care Provider] - 1-2 days
== END 2023-07-13 21:05 | disposition home or self-care (01) ==
LOC: EC 14:44
DX: M79.10 Myalgia, unspecified site (principal); I10 Essential (primary) hypertension; J45.909 Unspecified asthma, uncomplicated; K21.9 Gastro-esophageal reflux disease without esophagitis; F41.9 Anxiety disorder, unspecified; F32.A Depression, unspecified; M19.90 Unspecified osteoarthritis, unspecified site; F17.200 Nicotine dependence, unspecified, uncomplicated; Z79.899 Other long term (current) drug therapy; Z79.891 Long term (current) use of opiate analgesic; Z88.1 Allergy status to other antibiotic agents; Z88.6 Allergy status to analgesic agent
CPT/HCPCS: 99284; 96372; J2360

== ENCOUNTER → 2023-08-05 | Outpatient (CLI) | payer MEDICARE, OTHER ==
--- NOTE | 2023-08-05 09:18 | CTL ---
EXAMINATION TYPE: CT Low Dose Lung DATE OF EXAM ORDERED: 08/05/2023 HISTORY: . Lung cancer screening CT DLP: [address] CTDI: 3.2 mGy Automated exposure control for dose reduction was used. SCREENING VISIT: COMPARISON: 08/04/2022 TECHNIQUE: Low dose computed tomography scan was performed through the chest at 1 mm thick sections a nd reconstructed images in multiple planes at 1 mm and [address] DIAGNOSTIC QUALITY: Satisfactory FINDINGS: Subsegmental changes lung bases most typical of atelectasis. No consolidative pneumonia. There is no pneumothorax or pleural effusion. Heart size normal mild coronary artery calcification. Mild atherosclerotic change aorta. Mild emphyse matous changes with central and basilar bronchiectasis. There is a subpleural nodule right upper lobe axial image 55 series 4. Faint 3 mm density image 121 is likely related to localized atelectasis. There is a 9 mm nodule in th e right breast. Nodular density involving the left adrenal gland likely related to benign adenoma. Th ere is a small hiatal hernia. IMPRESSION: 1. COPD with benign-appearing subpleural micronodule. 2. There is a 9 mm nodule in the right breast axial image 22, recommend mammogram. CT LUNG RAD AND CT CHEST RECOMMENDATION: Lung-Rad 2 Benign Appearance or Behavior: Continue annual sc reening with LDCT in 12 months. S Modifier (other clinically significant findings): S
== END | disposition home or self-care (01) ==
LOC: RADCTMAIN 08:47
PROVIDERS: ATTEND Internal Medicine
DX: Z12.2 Encounter for screening for malignant neoplasm of respiratory organs (principal); J44.9 Chronic obstructive pulmonary disease, unspecified; M85.851 Other specified disorders of bone density and structure, right thigh; I65.23 Occlusion and stenosis of bilateral carotid arteries; N63.10 Unspecified lump in the right breast, unspecified quadrant; F17.210 Nicotine dependence, cigarettes, uncomplicated
CPT/HCPCS: 71271

== ENCOUNTER 2023-11-06 11:50 | Emergency (ER) | payer MEDICARE, OTHER ==
[2023-11-06 12:09] VITALS: RESP 18; TEMP 98.7
[2023-11-06] MEDS ORDERED: LORazepam 1 MG TAB PO STA (12:24)
--- NOTE | 2023-11-06 12:28 | ED ---
General Adult HPI - General Chief complaint: Recheck/Abnormal Lab/Rx Stated complaint: tremmors Time Seen by Provider: 11/06/23 12:00 Source: patient, EMS, RN notes reviewed, old records reviewed Mode of arrival: EMS Limitations: no limitations - History of Present Illness Initial comments: Patient is a pleasant 68-year-old female presenting to the emergency department with concern for tremors. Patient does have chronic tremors. Patient believes it may be medication related and has been making adjustments with her doctor. Symptoms seem to be worse again over the past week. Patient has had previous visits for this. No confusion. No weakness. No speech problems. - Related Data Home Medications Medication Instructions Recorded Confirmed Losartan Potassium [Cozaar] 100 mg PO DAILY 10/16/21 07/14/23 Omeprazole 40 mg PO AC-BRKFST 10/16/21 07/14/23 Albuterol Inhaler [Ventolin Hfa 1 - 2 puff INHALATION RT-Q6H PRN 08/31/22 07/14/23 Inhaler] Ergocalciferol [Vitamin D2 (1250 1,250 mcg PO Q7D 08/31/22 07/14/23 Mcg = 46196 Iu)] Gabapentin 300 mg PO BID 08/31/22 07/14/23 Metoprolol Succinate (ER) [Toprol 25 mg PO DAILY 08/31/22 07/14/23 XL] Cetirizine HCl [Zyrtec] 10 mg PO DAILY PRN 12/17/22 07/14/23 Clotrimazole/Betameth Cream 1 applic TOPICAL BID PRN 05/20/23 07/14/23 [Lotrisone] Furosemide [Lasix] 40 mg PO BID 05/20/23 07/14/23 Budesonide/Formoterol Fumarate 2 puff INHALATION RT-BID 06/29/23 07/14/23 [Symbicort 160-4.5 Mcg Inhaler] methocarbamoL 500 mg PO TID 07/14/23 07/14/23 Previous Rx's Medication Instructions Recorded Rosuvastatin [Crestor] 10 mg PO HS #30 tab 10/20/19 levETIRAcetam [Keppra] 500 mg PO BID #60 tab 10/20/19 HYDROcodone/APAP 10-325MG [[place] 1 tab PO Q8H #0 05/23/23 10-325] Nicotine 21Mg/24Hr Patch [Habitrol] 1 patch TRANSDERM DAILY #0 patch 07/02/23 DULoxetine HCL [Cymbalta] 60 mg PO DAILY 30 Days #30 cap 07/19/23 risperiDONE [RisperDAL] 1 mg PO HS 30 Days #30 tab 07/19/23 traZODone HCL 100 mg PO HS 30 Days #30 tab 07/19/23 Allergies Allergy/AdvReac Type Severity Reaction Status Date / Time nitrofurantoin AdvReac Abdominal Verified 11/06/23 11:59 [From Macrobid] Pain/Nausea/Vomiting NSAIDS (Non-Steroidal AdvReac Nausea & Verified 11/06/23 11:59 Anti-Inflamma Vomiting Review of Systems ROS Statement: Those systems with pertinent positive or pertinent negative responses have been documented in the HPI. ROS Other: All systems not noted in ROS Statement are negative. Constitutional: Denies: fever Eyes: Denies: eye pain ENT: Denies: ear pain Neurological: Reports: as per HPI. 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 hx. colon polyps, History of Any Multi-Drug Resistant Organisms: None Reported Past Surgical History: Adenoidectomy, Back Surgery, Breast Surgery, Joint Replacement, Orthopedic Surgery, Tonsillectomy Additional Past Surgical History / Comment(s): LEFT HAND SURGERY, BILATERAL ORIF WRISTS , RIGHT GANGLION CYST REMOVED, LEEP, COLONOSCOPY, EGD, BILATERAL CATARACTS WITH LENS IMPLANTS, RIGHT BREAST BIOPSY, BACK SURGERY X2, ONE WAS A LAMINECTOMY, LEFT KNEE AND LEFT HIP REPLACEMENTS, PAIN INJECTION FOR BACK PAIN. Past Anesthesia/Blood Transfusion Reactions: No Reported Reaction Past Psychological History: Anxiety, Depression Smoking Status: Current every day smoker Past Alcohol Use History: Occasional Past Drug Use History: None Reported - Past Family History Brother(s) Family Medical History: Cancer Additional Family Medical History / Comment(s): PANCREATITIS. Mother Family Medical History: CVA/TIA, Deep Vein Thrombosis (DVT), Hypertension, Memory Impairment Additional Family Medical History / Comment(s): of Alzheimer's at age 70. Father Family Medical History: Coronary Artery Disease (CAD), CVA/TIA, Diabetes Mellitus, Hypertension Additional Family Medical History / Comment(s): at age 68. General Exam Limitations: no limitations General appearance: alert, in no apparent distress Head exam: Present: normocephalic Eye exam: Present: normal appearance, PERRL, EOMI Neck exam: Present: normal inspection Respiratory exam: Present: normal lung sounds bilaterally Cardiovascular Exam: Present: regular rate, normal rhythm GI/Abdominal exam: Present: soft. Absent: tenderness Extremities exam: Present: normal inspection Neurological exam: Present: alert, oriented X3, CN II-XII intact, other (Patient does have resting tremor that is easily overcome when she is distracted). Absent: motor sensory deficit Expanded Neurological exam: Present: protecting the airway Speech: Present: fluid speech Cranial nerves: EOM's Intact: Normal Motor strength exam: RUE: 5, LUE: 5, RLE: 5, LLE: 5 Eye Response: (4) open spontaneously Motor Response: (6) obeys commands Verbal Response: (5) oriented Psychiatric exam: Present: normal affect, normal mood Skin exam: Present: normal color Course Vital Signs 11/06/23 11:53 Temperature 98.7 F Pulse Rate 64 Respiratory 18 Rate Blood Pressure 169/71 O2 Sat by Pulse 95 Oximetry Medical Decision Making - Medical Decision Making Was pt. sent in by a medical professional or institution (, PA, BOARD MEMBER, urgent care, hospital, or fci...) When possible be specific @ -No Did you speak to anyone other than the patient for history (EMS, parent, family, police, friend...)? What history was obtained from this source @ -No Did you review nursing and triage notes (agree or disagree)? Why? @ -I reviewed and agree with nursing and triage notes Were old charts reviewed (outside hosp., previous admission, EMS record, old EKG, old radiological studies, urgent care reports/EKG's, fci records)? Report findings @ -Previous admissions and ER reports reviewed Differential Diagnosis (chest pain, altered mental status, abdominal pain women, abdominal pain men, vaginal bleeding, weakness, fever, dyspnea, syncope, headache, dizziness, GI bleed, back pain, seizure, CVA, palpatations, mental health, musculoskeletal)? @ -Differential Weakness: Hypoglycemia, shock, sepsis, hyponatremia, anemia, infection, [place], ETOH, adverse medicine reaction, overdose, stroke, this is not meant to be an all-inclusive list. EKG interpreted by me (3pts min.). @ -As above X-rays interpreted by me (1pt min.). @ -None done CT interpreted by me (1pt min.). @ -None done U/S interpreted by me (1pt. min.). @ -None done What testing was considered but not performed or refused? (CT, X-rays, U/S, labs)? Why? @ -None What meds were considered but not given or refused? Why? @ -None Did you discuss the management of the patient with other professionals (professionals i.e. , PA, BOARD MEMBER, lab, RT, psych nurse, social insurance administrator, saddle stitcher, teacher, loan officer, case management director)? Give summary @ -No Was smoking cessation discussed for >3mins.? @ -No Was critical care preformed (if so, how long)? @ -No Were there social determinants of health that impacted care today? How? (Homelessness, low income, unemployed, alcoholism, drug addiction, transportation, low edu. Level, literacy, decrease access to med. care, snf, rehab)? @ -No Was there de-escalation of care discussed even if they declined (Discuss DNR or withdrawal of care, Hospice)? DNR status @ -No What co-morbidities impacted this encounter? (DM, HTN, Smoking, COPD, CAD, Cancer, CVA, ARF, Chemo, Hep., AIDS, mental health diagnosis, sleep apnea, morbid obesity)? @ -None Was patient admitted / discharged? Hospital course, mention meds given and route, prescriptions, significant lab abnormalities, going to OR and other pertinent info. @ -Patient presents with acute on chronic tremors. Patient has no weakness or no new symptoms. Patient will be provided Ativan for her symptoms and recommended follow-up with her primary care physician and neurologist which she has seen both for this multiple times. Undiagnosed new problem with uncertain prognosis? @ -No Drug Therapy requiring intensive monitoring for toxicity (Heparin, Nitro, Insulin, Cardizem)? @ -No Were any procedures done? @ -No Diagnosis/symptom? @ -Tremors Acute, or Chronic, or Acute on Chronic? @ -Acute on chronic Uncomplicated (without systemic symptoms) or Complicated (systemic symptoms)? @ -default Side effects of treatment? @ -No Exacerbation, Progression, or Severe Exacerbation? @ -No Poses a threat to life or bodily function? How? (Chest pain, [place], [place], pneumonia, PE, COPD, DKA, ARF, appy, cholecystitis, CVA, Diverticulitis, Homicidal, Suicidal, threat to staff... and all critical care pts) @ -No Disposition Clinical Impression: Tremor Disposition: HOME SELF-CARE Condition: Stable Instructions (If sedation given, give patient instructions): Tremors (ED) Additional Instructions: Please do follow-up with your primary care physician and neurologist in the beginning of the week. Return for weakness, confusion, fevers, worsening or changing symptoms or any other concerns. Is patient prescribed a controlled substance at d/c from ED?: No Referrals: Yanni Max MD [Primary Care Provider] - 1-2 days Time of Disposition: 12:27
[2023-11-06 13:36] VITALS: BP 154/74; PULSE 67
== END 2023-11-06 13:26 | disposition home or self-care (01) ==
LOC: EC 11:50
DX: R25.1 Tremor, unspecified (principal); I10 Essential (primary) hypertension; J45.909 Unspecified asthma, uncomplicated; K21.9 Gastro-esophageal reflux disease without esophagitis; M19.90 Unspecified osteoarthritis, unspecified site; E78.5 Hyperlipidemia, unspecified; F41.9 Anxiety disorder, unspecified; F32.A Depression, unspecified; F17.200 Nicotine dependence, unspecified, uncomplicated; Z79.51 Long term (current) use of inhaled steroids; Z79.899 Other long term (current) drug therapy; Z88.1 Allergy status to other antibiotic agents; Z88.6 Allergy status to analgesic agent
CPT/HCPCS: 99283

== ENCOUNTER 2023-11-07 14:42 | Emergency (ER) | payer MEDICARE, OTHER ==
[2023-11-07 14:56] VITALS: BP 164/80; PULSE 64; RESP 18; TEMP 98.8
--- NOTE | 2023-11-07 15:20 | ED ---
General Adult HPI - General Chief complaint: Recheck/Abnormal Lab/Rx Stated complaint: tremmors Time Seen by Provider: 11/07/23 15:14 Source: patient, RN notes reviewed Mode of arrival: EMS - History of Present Illness Initial comments: Patient is a 68 year old female presenting to the ER with a chief complaint of tremors. She states she was here last night for same complaint. Denies any fevers, slurred speech, chest pain, shortness of breath. - Related Data Home Medications Medication Instructions Recorded Confirmed Losartan Potassium [Cozaar] 100 mg PO DAILY 10/16/21 07/14/23 Omeprazole 40 mg PO AC-BRKFST 10/16/21 07/14/23 Albuterol Inhaler [Ventolin Hfa 1 - 2 puff INHALATION RT-Q6H PRN 08/31/22 07/14/23 Inhaler] Ergocalciferol [Vitamin D2 (1250 1,250 mcg PO Q7D 08/31/22 07/14/23 Mcg = 40833 Iu)] Gabapentin 300 mg PO BID 08/31/22 07/14/23 Metoprolol Succinate (ER) [Toprol 25 mg PO DAILY 08/31/22 07/14/23 XL] Cetirizine HCl [Zyrtec] 10 mg PO DAILY PRN 12/17/22 07/14/23 Clotrimazole/Betameth Cream 1 applic TOPICAL BID PRN 05/20/23 07/14/23 [Lotrisone] Furosemide [Lasix] 40 mg PO BID 05/20/23 07/14/23 Budesonide/Formoterol Fumarate 2 puff INHALATION RT-BID 06/29/23 07/14/23 [Symbicort 160-4.5 Mcg Inhaler] methocarbamoL 500 mg PO TID 07/14/23 07/14/23 Previous Rx's Medication Instructions Recorded Rosuvastatin [Crestor] 10 mg PO HS #30 tab 10/20/19 levETIRAcetam [Keppra] 500 mg PO BID #60 tab 10/20/19 HYDROcodone/APAP 10-325MG [[place] 1 tab PO Q8H #0 05/23/23 10-325] Nicotine 21Mg/24Hr Patch [Habitrol] 1 patch TRANSDERM DAILY #0 patch 07/02/23 DULoxetine HCL [Cymbalta] 60 mg PO DAILY 30 Days #30 cap 07/19/23 risperiDONE [RisperDAL] 1 mg PO HS 30 Days #30 tab 07/19/23 traZODone HCL 100 mg PO HS 30 Days #30 tab 07/19/23 Allergies Allergy/AdvReac Type Severity Reaction Status Date / Time nitrofurantoin AdvReac Abdominal Verified 11/06/23 11:59 [From Macrobid] Pain/Nausea/Vomiting NSAIDS (Non-Steroidal AdvReac Nausea & Verified 11/06/23 11:59 Anti-Inflamma Vomiting Review of Systems ROS Statement: Those systems with pertinent positive or pertinent negative responses have been documented in the HPI. ROS Other: All systems not noted in ROS Statement are negative. 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 hx. colon polyps, History of Any Multi-Drug Resistant Organisms: None Reported Past Surgical History: Adenoidectomy, Back Surgery, Breast Surgery, Joint Replacement, Orthopedic Surgery, Tonsillectomy Additional Past Surgical History / Comment(s): LEFT HAND SURGERY, BILATERAL ORIF WRISTS , RIGHT GANGLION CYST REMOVED, LEEP, COLONOSCOPY, EGD, BILATERAL CATARACTS WITH LENS IMPLANTS, RIGHT BREAST BIOPSY, BACK SURGERY X2, ONE WAS A LAMINECTOMY, LEFT KNEE AND LEFT HIP REPLACEMENTS, PAIN INJECTION FOR BACK PAIN. Past Anesthesia/Blood Transfusion Reactions: No Reported Reaction Past Psychological History: Anxiety, Depression Smoking Status: Current every day smoker Past Alcohol Use History: Occasional Past Drug Use History: None Reported - Past Family History Brother(s) Family Medical History: Cancer Additional Family Medical History / Comment(s): PANCREATITIS. Mother Family Medical History: CVA/TIA, Deep Vein Thrombosis (DVT), Hypertension, Memory Impairment Additional Family Medical History / Comment(s): of Alzheimer's at age 70. Father Family Medical History: Coronary Artery Disease (CAD), CVA/TIA, Diabetes Brissa litus, Hypertension Additional Family Medical History / Comment(s): at age 68. General Exam - General Exam Comments Initial Comments: Visual Physical Exam Vital signs reviewed General: Well-appearing, nontoxic, no acute distress. Head: Normocephalic, atraumatic Eyes: PERRLA, EOMI ENT: Airway patent Chest: Nonlabored breathing Skin: No visual rash, normal skin tone Neuro: Alert and oriented 3 Musculoskeletal: No gross abnormalities General appearance: alert, in no apparent distress Head exam: Present: atraumatic, normocephalic, normal inspection Eye exam: Present: normal appearance, PERRL, EOMI. Absent: scleral icterus, conjunctival injection, periorbital swelling Respiratory exam: Present: normal lung sounds bilaterally. Absent: respiratory distress, wheezes, rales, rhonchi, stridor Cardiovascular Exam: Present: regular rate, normal rhythm, normal heart sounds. Absent: systolic murmur, diastolic murmur, rubs, gallop, clicks Neurological exam: Present: alert, oriented X3, CN II-XII intact Psychiatric exam: Present: normal affect, normal mood Skin exam: Present: warm, dry, intact, normal color. Absent: rash Course Vital Signs 11/07/23 14:43 Temperature 98.8 F Pulse Rate 64 Respiratory 18 Rate Blood Pressure 164/80 O2 Sat by Pulse 99 Oximetry Medical Decision Making - Medical Decision Making I performed the quick note portion of the exam. Electronically signed by Sharon Lin PA-C Was pt. sent in by a medical professional or institution ([facility], BATTERY CHARGER TESTER, urgent care, hospital, or half-way...) When possible be specific @ -No Did you speak to anyone other than the patient for history (EMS, parent, family, police, friend...)? What history was obtained from this source @ -No Did you review nursing and triage notes (agree or disagree)? Why? @ -I reviewed and agree with nursing and triage notes Were old charts reviewed (outside hosp., previous admission, EMS record, old EKG, old radiological studies, urgent care reports/EKG's, half-way records)? Report findings @ -No old charts were reviewed Differential Diagnosis (chest pain, altered mental status, abdominal pain women, abdominal pain men, vaginal bleeding, weakness, fever, dyspnea, syncope, headache, dizziness, GI bleed, back pain, seizure, CVA, palpatations, mental health, musculoskeletal)? @ -Differential Seizure: Recurrent seizure disorder, febrile seizure, alcohol withdrawal, stimulants, meningitis, encephalitis, intercranial hemorrhage, intracranial tumor, stroke, eclampsia, thyrotoxicosis, hypocalcemia, hyponatremia, hypernatremia, hypomagnesemia, psychogenic, this is not meant to be an all-inclusive list. EKG interpreted by me (3pts min.). @ -No X-rays interpreted by me (1pt min.). @ -None done CT interpreted by me (1pt min.). @ -None done U/S interpreted by me (1pt. min.). @ -None done What testing was considered but not performed or refused? (CT, X-rays, U/S, labs)? Why? @ -None What meds were considered but not given or refused? Why? @ -None Did you discuss the management of the patient with other professionals (professionals i.e. , PA, BATTERY CHARGER TESTER, lab, RT, psych nurse, social contact worker, electrical and instrumentation manager, teacher, police patrol officer, correctional counselor/case manager)? Give summary @ -No Was smoking cessation discussed for >3mins.? @ -No Was critical care preformed (if so, how long)? @ -No Were there social determinants of health that impacted care today? How? (Homelessness, low income, unemployed, alcoholism, drug addiction, transportation, low edu. Level, literacy, decrease access to med. care, care home, rehab)? @ -No Was there de-escalation of care discussed even if they declined (Discuss DNR or withdrawal of care, Hospice)? DNR status @ -No What co-morbidities impacted this encounter? (DM, HTN, Smoking, COPD, CAD, Cancer, CVA, ARF, Chemo, Hep., AIDS, mental health diagnosis, sleep apnea, morbid obesity)? @ -Tremor Was patient admitted / discharged? Hospital course, mention meds given and route, prescriptions, significant lab abnormalities, going to OR and other pertinent info. @ -Discharge. Patient is 68-year-old female presented ER with chief complaint of tremors. Vital stable. History of physical exam was completed. Patient was in no signs of distress. Patient received IM Ativan. Return parameters were discussed. I advised patient to follow-up with her neurologist. Patient discharged stable condition with follow-up to PCP/neurology. Patient expressed understanding and agreement with care plan. Undiagnosed new problem with uncertain prognosis? @ -No Drug Therapy requiring intensive monitoring for toxicity (Heparin, Nitro, Insulin, Cardizem)? @ -No Were any procedures done? @ -No Diagnosis/symptom? @ -Tremor Acute, or Chronic, or Acute on Chronic? @ -Chronic Uncomplicated (without systemic symptoms) or Complicated (systemic symptoms)? @ -Uncomplicated Side effects of treatment? @ -No Exacerbation, Progression, or Severe Exacerbation? @ -No Poses a threat to life or bodily function? How? (Chest pain, USA, [place], pneumonia, PE, COPD, DKA, ARF, appy, cholecystitis, CVA, Diverticulitis, Homicidal, Suicidal, threat to staff... and all critical care pts) @ -No Disposition Clinical Impression: Tremor Disposition: HOME SELF-CARE Condition: Stable Additional Instructions: Please follow-up with your neurologist/PCP. Is patient prescribed a controlled substance at d/c from ED?: No Referrals: Yanni Max MD [Primary Care Provider] - 1-2 days Time of Disposition: 15:33
[2023-11-07] MEDS ORDERED: LORazepam 2 MG/ML INJ IM STA (15:32)
== END 2023-11-07 16:57 | disposition home or self-care (01) ==
LOC: EC 14:42
DX: R25.1 Tremor, unspecified (principal); I10 Essential (primary) hypertension; K21.9 Gastro-esophageal reflux disease without esophagitis; J45.909 Unspecified asthma, uncomplicated; F17.200 Nicotine dependence, unspecified, uncomplicated; Z79.51 Long term (current) use of inhaled steroids; Z79.899 Other long term (current) drug therapy; Z88.6 Allergy status to analgesic agent; Z88.8 Allergy status to other drugs, medicaments and biological substances; Z86.73 Personal history of transient ischemic attack (TIA), and cerebral infarction without residual deficits
CPT/HCPCS: 99283; 96372; J2060

== ENCOUNTER 2023-11-18 06:53 | Emergency (ER) | payer MEDICARE, OTHER ==
[2023-11-18 07:06] VITALS: RESP 18
--- NOTE | 2023-11-18 07:15 | ED ---
General Adult HPI - General Chief complaint: Neuro Symptoms/Deficit Stated complaint: Tremors,wants to go to Long-Term Time Seen by Provider: 11/18/23 06:57 Source: patient, EMS, RN notes reviewed, old records reviewed Mode of arrival: EMS Limitations: no limitations - History of Present Illness Initial comments: 68-year-old female presents emergency department with chief complaint of tremors. This has been ongoing issue and is not new today. Patient has been evaluated by her PCP, psychiatric services. This is self-induced tremors. She denies any new complaints denies any physical complaints. She states that she wants to go stay somewhere where someone takes care of her. Patient denies chest pain shortness of breath headache dizziness focal weakness. - Related Data Home Medications Medication Instructions Recorded Confirmed Losartan Potassium [Cozaar] 100 mg PO DAILY 10/16/21 07/14/23 Omeprazole 40 mg PO AC-BRKFST 10/16/21 07/14/23 Albuterol Inhaler [Ventolin Hfa 1 - 2 puff INHALATION RT-Q6H PRN 08/31/22 07/14/23 Inhaler] Ergocalciferol [Vitamin D2 (1250 1,250 mcg PO Q7D 08/31/22 07/14/23 Mcg = 31511 Iu)] Gabapentin 300 mg PO BID 08/31/22 07/14/23 Metoprolol Succinate (ER) [Toprol 25 mg PO DAILY 08/31/22 07/14/23 XL] Cetirizine HCl [Zyrtec] 10 mg PO DAILY PRN 12/17/22 07/14/23 Clotrimazole/Betameth Cream 1 applic TOPICAL BID PRN 05/20/23 07/14/23 [Lotrisone] Furosemide [Lasix] 40 mg PO BID 05/20/23 07/14/23 Budesonide/Formoterol Fumarate 2 puff INHALATION RT-BID 06/29/23 07/14/23 [Symbicort 160-4.5 Mcg Inhaler] methocarbamoL 500 mg PO TID 07/14/23 07/14/23 Previous Rx's Medication Instructions Recorded Rosuvastatin [Crestor] 10 mg PO HS #30 tab 10/20/19 levETIRAcetam [Keppra] 500 mg PO BID #60 tab 10/20/19 HYDROcodone/APAP 10-325MG [[place] 1 tab PO Q8H #0 05/23/23 10-325] Nicotine 21Mg/24Hr Patch [Habitrol] 1 patch TRANSDERM DAILY #0 patch 07/02/23 DULoxetine HCL [Cymbalta] 60 mg PO DAILY 30 Days #30 cap 07/19/23 risperiDONE [RisperDAL] 1 mg PO HS 30 Days #30 tab 07/19/23 traZODone HCL 100 mg PO HS 30 Days #30 tab 07/19/23 Allergies Allergy/AdvReac Type Severity Reaction Status Date / Time nitrofurantoin AdvReac Abdominal Verified 11/06/23 11:59 [From Macrobid] Pain/Nausea/Vomiting NSAIDS (Non-Steroidal AdvReac Nausea & Verified 11/06/23 11:59 Anti-Inflamma Vomiting Review of Systems ROS Statement: Those systems with pertinent positive or pertinent negative responses have been documented in the HPI. ROS Other: All systems not noted in ROS Statement are negative. 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 hx. colon polyps, History of Any Multi-Drug Resistant Organisms: None Reported Past Surgical History: Adenoidectomy, Back Surgery, Breast Surgery, Joint Replacement, Orthopedic Surgery, Tonsillectomy Additional Past Surgical History / Comment(s): LEFT HAND SURGERY, BILATERAL ORIF WRISTS , RIGHT GANGLION CYST REMOVED, LEEP, COLONOSCOPY, EGD, BILATERAL CATARACTS WITH LENS IMPLANTS, RIGHT BREAST BIOPSY, BACK SURGERY X2, ONE WAS A LAMINECTOMY, LEFT KNEE AND LEFT HIP REPLACEMENTS, PAIN INJECTION FOR BACK PAIN. Past Anesthesia/Blood Transfusion Reactions: No Reported Reaction Past Psychological History: Anxiety, Depression Smoking Status: Current every day smoker Past Alcohol Use History: Occasional Past Drug Use History: None Reported - Past Family History Brother(s) Family Medical History: Cancer Additional Family Medical History / Comment(s): PANCREATITIS. Mother Family Medical History: CVA/TIA, Deep Vein Thrombosis (DVT), Hypertension, Memory Impairment Additional Family Medical History / Comment(s): of Alzheimer's at age 70. Father Family Medical History: Coronary Artery Disease (CAD), CVA/TIA, Diabetes Mellitus, Hypertension Additional Family Medical History / Comment(s): at age 68. General Exam General appearance: alert, in no apparent distress Head exam: Present: atraumatic, normocephalic, normal inspection Eye exam: Present: normal appearance, PERRL, EOMI. Absent: scleral icterus, conjunctival injection, periorbital swelling Respiratory exam: Present: normal lung sounds bilaterally. Absent: respiratory distress, wheezes, rales, rhonchi, stridor Cardiovascular Exam: Present: regular rate, normal rhythm, normal heart sounds. Absent: systolic murmur, diastolic murmur, rubs, gallop, clicks GI/Abdominal exam: Present: soft, normal bowel sounds. Absent: distended, tenderness, guarding, rebound, rigid Neurological exam: Present: alert, oriented X3 Skin exam: Present: warm, dry, intact, normal color. Absent: rash Course Vital Signs 11/18/23 06:56 Temperature 96.9 F L Pulse Rate 87 Respiratory 18 Rate Blood Pressure 153/87 O2 Sat by Pulse 95 Oximetry Medical Decision Making - Medical Decision Making Was pt. sent in by a medical professional or institution (, PA, CRUISE COUNSELOR, urgent care, hospital, or half-way...) When possible be specific @ -No Did you speak to anyone other than the patient for history (EMS, parent, family, police, friend...)? What history was obtained from this source @ -No Did you review nursing and triage notes (agree or disagree)? Why? @ -I reviewed and agree with nursing and triage notes Were old charts reviewed (outside hosp., previous admission, EMS record, old EKG, old radiological studies, urgent care reports/EKG's, half-way records)? Report findings @ -[Reviewed prior hospitalizations, PCP notes, laboratory studies Differential Diagnosis (chest pain, altered mental status, abdominal pain women, abdominal pain men, vaginal bleeding, weakness, fever, dyspnea, syncope, headache, dizziness, GI bleed, back pain, seizure, CVA, palpatations, mental health, musculoskeletal)? @ -Tremors, seizures, self-induced shaking, psychiatric disorder EKG interpreted by me (3pts min.). @ -None X-rays interpreted by me (1pt min.). @ -None done CT interpreted by me (1pt min.). @ -None done U/S interpreted by me (1pt. min.). @ -None done What testing was considered but not performed or refused? (CT, X-rays, U/S, labs)? Why? @ -None What meds were considered but not given or refused? Why? @ -None Did you discuss the management of the patient with other professionals (professionals i.e. DrCristobal, PA, CRUISE COUNSELOR, lab, RT, psych nurse, social work instructor, solidworks drafter, teacher, executive officer, gearcase assembler)? Give summary @ -No Was smoking cessation discussed for >3mins.? @ -No Was critical care preformed (if so, how long)? @ -No Were there social determinants of health that impacted care today? How? (Homelessness, low income, unemployed, alcoholism, drug addiction, transportation, low edu. Level, literacy, decrease access to med. care, [facility], rehab)? @ -No Was there de-escalation of care discussed even if they declined (Discuss DNR or withdrawal of care, Hospice)? DNR status @ -No What co-morbidities impacted this encounter? (DM, HTN, Smoking, COPD, CAD, Cancer, CVA, ARF, Chemo, Hep., AIDS, mental health diagnosis, sleep apnea, morbid obesity)? @ -Psych history Was patient admitted / discharged? Hospital course, mention meds given and route, prescriptions, significant lab abnormalities, going to OR and other pertinent info. @ -[Discharge patient who presented for self-induced shaking episodes. This is been a chronic issue and has been evaluated several times. Patient open provided outpatient resources. Return parameters were discussed. Undiagnosed new problem with uncertain prognosis? @ -No Drug Therapy requiring intensive monitoring for toxicity (Heparin, Nitro, Insulin, Cardizem)? @ -No Were any procedures done? @ -No Diagnosis/symptom? @ -Psychiatric disorder, self-induced tremoring Acute, or Chronic, or Acute on Chronic? @ -[Chronic Uncomplicated (without systemic symptoms) or Complicated (systemic symptoms)? @ -Uncomplicated Side effects of treatment? @ -[No Exacerbation, Progression, or Severe Exacerbation? @ -No Poses a threat to life or bodily function? How? (Chest pain, USA, [place], pneumonia, PE, COPD, DKA, ARF, appy, cholecystitis, CVA, Diverticulitis, Homicidal, Suicidal, threat to staff... and all critical care pts) @ -No Disposition Clinical Impression: Psychiatric disorder Disposition: HOME SELF-CARE Condition: Stable Is patient prescribed a controlled substance at d/c from ED?: No Referrals: Yanni Max MD [Primary Care Provider] - 1-2 days Time of Disposition: 07:10
[2023-11-18 07:53] VITALS: BP 145/79; PULSE 80; TEMP 97.4
== END 2023-11-18 07:51 | disposition home or self-care (01) ==
LOC: EC 06:53
DX: F99 Mental disorder, not otherwise specified (principal); R25.1 Tremor, unspecified; I10 Essential (primary) hypertension; J45.909 Unspecified asthma, uncomplicated; K21.9 Gastro-esophageal reflux disease without esophagitis; F17.200 Nicotine dependence, unspecified, uncomplicated; Z79.51 Long term (current) use of inhaled steroids; Z79.899 Other long term (current) drug therapy; Z88.1 Allergy status to other antibiotic agents; Z88.6 Allergy status to analgesic agent; Z86.73 Personal history of transient ischemic attack (TIA), and cerebral infarction without residual deficits
CPT/HCPCS: 99284

== ENCOUNTER 2024-02-19 19:39 | Emergency (ER) | payer MEDICARE, OTHER ==
--- NOTE | 2024-02-19 19:45 | ED ---
Chest Pain HPI - General Stated Complaint: Chest pain Time Seen by Provider: 02/19/24 19:43 Source: RN notes reviewed, old records reviewed Mode of arrival: EMS Limitations: no limitations - History of Present Illness Initial Comments: This is a 69-year-old female to the ER for evaluation today. Patient presents today for evaluation of chest pain today. Patient is well-known to this emergency department for ER presentations of multiple different medical issues. Patient does have chest pain today patient has had chest pain for 5 hours presents from [facility] for chest pain and tremors with known history of tremors MD Complaint: chest pain -: hour(s) (5) Onset: during rest, during exertion Pain Location: substernal Pain Radiation: none Severity: moderate Severity scale (1-10): 5 Quality: aching Consistency: constant Improves With: nothing Worsens With: nothing Anginal Symptoms: sense of impending doom Other Symptoms: palpitations Treatments Prior to Arrival: none - Related Data Home Medications Medication Instructions Recorded Confirmed Losartan Potassium [Cozaar] 100 mg PO DAILY 10/16/21 07/14/23 Omeprazole 40 mg PO AC-BRKFST 10/16/21 07/14/23 Albuterol Inhaler [Ventolin Hfa 1 - 2 puff INHALATION RT-Q6H PRN 08/31/22 07/14/23 Inhaler] Ergocalciferol [Vitamin D2 (1250 1,250 mcg PO Q7D 08/31/22 07/14/23 Mcg = 25038 Iu)] Gabapentin 300 mg PO BID 08/31/22 07/14/23 Metoprolol Succinate (ER) [Toprol 25 mg PO DAILY 08/31/22 07/14/23 XL] Cetirizine HCl [Zyrtec] 10 mg PO DAILY PRN 12/17/22 07/14/23 Clotrimazole/Betameth Cream 1 applic TOPICAL BID PRN 05/20/23 07/14/23 [Lotrisone] Furosemide [Lasix] 40 mg PO BID 05/20/23 07/14/23 Budesonide/Formoterol Fumarate 2 puff INHALATION RT-BID 06/29/23 07/14/23 [Symbicort 160-4.5 Mcg Inhaler] methocarbamoL 500 mg PO TID 07/14/23 07/14/23 Previous Rx's Medication Instructions Recorded Rosuvastatin [Crestor] 10 mg PO HS #30 tab 10/20/19 levETIRAcetam [Keppra] 500 mg PO BID #60 tab 10/20/19 HYDROcodone/APAP 10-325MG [[place] 1 tab PO Q8H #0 05/23/23 10-325] Nicotine 21Mg/24Hr Patch [Habitrol] 1 patch TRANSDERM DAILY #0 patch 07/02/23 DULoxetine HCL [Cymbalta] 60 mg PO DAILY 30 Days #30 cap 07/19/23 risperiDONE [RisperDAL] 1 mg PO HS 30 Days #30 tab 07/19/23 traZODone HCL 100 mg PO HS 30 Days #30 tab 07/19/23 Allergies Allergy/AdvReac Type Severity Reaction Status Date / Time nitrofurantoin AdvReac Abdominal Verified 11/06/23 11:59 [From Macrobid] Pain/Nausea/Vomiting NSAIDS (Non-Steroidal AdvReac Nausea & Verified 11/06/23 11:59 Anti-Inflamma Vomiting Review of Systems ROS Statement: Those systems with pertinent positive or pertinent negative responses have been documented in the HPI. ROS Other: All systems not noted in ROS Statement are negative. 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 hx. colon polyps, History of Any Multi-Drug Resistant Organisms: None Reported Past Surgical History: Adenoidectomy, Back Surgery, Breast Surgery, Joint Replacement, Orthopedic Surgery, Tonsillectomy Additional Past Surgical History / Comment(s): LEFT HAND SURGERY, BILATERAL ORIF WRISTS , RIGHT GANGLION CYST REMOVED, LEEP, COLONOSCOPY, EGD, BILATERAL CATARACTS WITH LENS IMPLANTS, RIGHT BREAST BIOPSY, BACK SURGERY X2, ONE WAS A LAMINECTOMY, LEFT KNEE AND LEFT HIP REPLACEMENTS, PAIN INJECTION FOR BACK PAIN. Past Anesthesia/Blood Transfusion Reactions: No Reported Reaction Past Psychological History: Anxiety, Depression Additional Psychological History / Comment(s): "Depression and anxiety occasionally." SHORT TERM MEMORY LOSS. Smoking Status: Current every day smoker Past Alcohol Use History: Occasional Past Drug Use History: None Reported - Past Family History Brother(s) Family Medical History: Cancer Additional Family Medical History / Comment(s): PANCREATITIS. Mother Family Medical History: CVA/TIA, Deep Vein Thrombosis (DVT), Hypertension, Memory Impairment Additional Family Medical History / Comment(s): of Alzheimer's at age 70. Father Family Medical History: Coronary Artery Disease (CAD), CVA/TIA, Diabetes Mellitus, Hypertension Additional Family Medical History / Comment(s): at age 68. General Exam General appearance: alert, in no apparent distress Head exam: Present: atraumatic, normocephalic, normal inspection Eye exam: Present: normal appearance, PERRL, EOMI. Absent: scleral icterus, conjunctival injection, periorbital swelling ENT exam: Present: normal exam, mucous membranes moist Neck exam: Present: normal inspection. Absent: tenderness, meningismus, lymphadenopathy Respiratory exam: Present: normal lung sounds bilaterally. Absent: respiratory distress, wheezes, rales, rhonchi, stridor Cardiovascular Exam: Present: regular rate, normal rhythm, normal heart sounds. Absent: systolic murmur, diastolic murmur, rubs, gallop, clicks GI/Abdominal exam: Present: soft, normal bowel sounds. Absent: distended, tenderness, guarding, rebound, rigid Extremities exam: Present: normal inspection, full ROM, normal capillary refill. Absent: tenderness, pedal edema, joint swelling, calf tenderness Back exam: Present: normal inspection Neurological exam: Present: alert, oriented X3, CN II-XII intact Psychiatric exam: Present: normal affect, normal mood Skin exam: Present: warm, dry, intact, normal color. Absent: rash Course Vital Signs 02/19/24 02/19/24 02/19/24 19:45 21:12 23:42 Temperature 98.4 F 98.4 F Pulse Rate 59 L 61 76 Respiratory 18 16 20 Rate Blood Pressure 164/83 162/85 165/85 O2 Sat by Pulse 94 L 98 96 Oximetry - Reevaluation(s) Reevaluation #1: 02/19/24 20:10 Medical records reviewed Reevaluation #2: 02/19/24 20:10 Patient symptoms unchanged Reevaluation #3: 02/19/24 20:10 Patient informed of results and questions answered Reevaluation #4: Was pt. sent in by a medical professional or institution (INGE Varela, SURVEY MANAGER, urgent care, hospital, or [facility]...) When possible be specific @ -no Did you speak to anyone other than the patient for history (EMS, parent, family, police, friend...)? What history was obtained from this source @ -no Did you review nursing and triage notes (agree or disagree)? Why? @ -agree Are old charts reviewed (outside hosp., previous admission, EMS record, old EKG, old radiological studies, urgent care reports/EKG's, [facility] records)? Report findings @ -yes Differential Diagnosis (chest pain, altered mental status, abdominal pain women, abdominal pain men, vaginal bleeding, weakness, fever, dyspnea, syncope, headache, dizziness, GI bleed, back pain, seizure, CVA, palpatations, mental health, musculoskeletal)? @ -prior EKG interpreted by me (3pts min.). @ -yes X-rays interpreted by me (1pt min.). @ -yes negative for acute disease CT interpreted by me (1pt min.). @ -no U/S interpreted by me (1pt. min.). @ -no What testing was considered but not performed or refused? (CT, X-rays, U/S, labs)? Why? @ -none What meds were considered but not given or refused? Why? @ -none Did you discuss the management of the patient with other professionals (professionals i.e. INGE Varela, SURVEY MANAGER, lab, RT, psych nurse, social science analyst, bow machine operator, teacher, forest fire management officer, immigration case manager)? Give summary @ -no Was smoking cessation discussed for >3mins.? @ -no Was critical care preformed (if so, how long)? @ -no Were there social determinants of health that impacted care today? How? (Homelessness, low income, unemployed, alcoholism, drug addiction, transportation, low edu. Level, literacy, decrease access to med. care, intermediate, rehab)? @ -none Was there de-escalation of care discussed even if they declined (Discuss DNR or withdrawal of care, Hospice)? DNR status @ -no What co-morbidities impacted this encounter? (DM, HTN, Smoking, COPD, CAD, Cancer, CVA, ARF, Chemo, Hep., AIDS, mental health diagnosis, sleep apnea, morbid obesity)? @ -none Was patient admitted / discharged? Hospital course, mention meds given and route, prescriptions, significant lab abnormalities, going to OR and other pertinent info. @ - 69 female here for evaluation of chest pain today. Patient has chest pain here in the emergency department. There is now resolved patient feels well and can be discharged home Discharge Undiagnosed new problem with uncertain prognosis? @ -no Drug Therapy requiring intensive monitoring for toxicity (Heparin, Nitro, Insulin, Cardizem)? @ -no Were any procedures done? @ -no Diagnosis/symptom? @ -Chest pain Acute, or Chronic, or Acute on Chronic? @ -Acute Uncomplicated (without systemic symptoms) or Complicated (systemic symptoms)? @ -Complicated Side effects of treatment? @ -no Exacerbation, Progression, or Severe Exacerbation? @ -exacerbation Poses a threat to life or bodily function? How? (Chest pain, [place], [place], pneumonia, PE, COPD, DKA, ARF, appy, cholecystitis, CVA, Diverticulitis, Homicidal, Suicidal, threat to staff... and all critical care pts) @ -yes with chest pain Reevaluation #5: Differential Chest Pain: Stable Angina, Unstable Angina, STEMI, NSTEMI Aortic Dissection, Pneumothorax, Musculoskeletal, Esophageal Spasm GERD, Cholecystitis, Pancreatitis, Zoster, this is not meant to be an all-inclusive list. Chest Pain MDM - MDM 69 female here for evaluation of chest pain today. Patient has chest pain here in the emergency department. There is now resolved patient feels well and can be discharged home Disposition Clinical Impression: Chest pain Disposition: HOME SELF-CARE Condition: Good Instructions (If sedation given, give patient instructions): Chest Pain (ED) Is patient prescribed a controlled substance at d/c from ED?: No Referrals: Yanni Max MD [Primary Care Provider] - 1-2 days Time of Disposition: 21:40
[2024-02-19 20:07] VITALS: TEMP 98.4
[2024-02-19 20:22] LABS: Basophils % (A) 1 %; Eosinophils # (A) 0.2 k/uL (0-0.7); Eosinophils % (A) 5 %; HCT 38.9 % (34.0-46.0); HGB 12.7 gm/dL (11.4-16.0); Lymphocytes # (A) 1.6 k/uL (1.0-4.8); Lymphocytes % (A) 46 %; MCH 29.8 pg (25.0-35.0); MCHC 32.6 g/dL (31.0-37.0); MCV 91.4 fL (80.0-100.0); Monocytes # (A) 0.2 k/uL (0-1.0); Monocytes % (A) 6 %; Neutrophils # (A) 1.4 k/uL (1.3-7.7); Neutrophils % (A) 41 %; Platelet Count 210 k/uL (150-450); RBC 4.25 m/uL (3.80-5.40); RDW 14.5 % (11.5-15.5); WBC 3.5 k/uL (3.8-10.6)
[2024-02-19 20:35] LABS: ALT 21 U/L (4-34); AST 23 U/L (14-36); African American GFR (CKD) >90 (>60 ml/min/1.73 sqM); Albumin 3.5 g/dL (3.5-5.0); Alkaline Phosphatase 63 U/L (38-126); Anion Gap 4 mmol/L; Blood Urea Nitrogen 12 mg/dL (7-17); Calcium 8.9 mg/dL (8.4-10.2); Carbon Dioxide 29 mmol/L (22-30); Chloride 107 mmol/L (98-107); Glucose 97 mg/dL (74-99); Lipase 55 U/L (23-300); Magnesium 1.8 mg/dL (1.6-2.3); Non-African American GFR(CKD) >90 (>60 ml/min/1.73 sqM); Potassium 3.9 mmol/L (3.5-5.1); Sodium 140 mmol/L (137-145); Total Bilirubin 0.4 mg/dL (0.2-1.3); Total Protein 5.9 g/dL (6.3-8.2)
[2024-02-19 20:37] LABS: Partial Thromboplastin Time 23.4 sec (22.0-30.0); Prothrombin Time 10.6 sec (10.0-12.5)
[2024-02-19 20:42] LABS: NT-Pro-B-Type Natriuretic Pept 370 pg/mL
[2024-02-19] MEDS: HYDROmorphone 1 MG/ML 1 ML SYRINGE IVP STA ×2 (21:07→23:38)
[2024-02-19] MEDS: LORazepam 2 MG/ML INJ IV STA (21:10)
[2024-02-19] MEDS: SODIUM CHLORIDE 0.9% 1,000 ML IV STA (21:10)
[2024-02-20 00:13] VITALS: BP 165/85; PULSE 76; RESP 20
== END 2024-02-19 23:46 | disposition home or self-care (01) ==
LOC: EC 19:39
DX: R07.2 Precordial pain (principal); Z88.8 Allergy status to other drugs, medicaments and biological substances; Z88.5 Allergy status to narcotic agent; F17.200 Nicotine dependence, unspecified, uncomplicated
CPT/HCPCS: 36415; 93005; 83880; 80053; 83690; 83735; 84484; 85025; 85610; 85730; 99285; 96374; 96375; 96376; 96361; J2060; J1170

== ENCOUNTER → 2025-02-19 | Outpatient (CLI) | payer OTHER ==
--- NOTE | 2025-02-19 20:57 | US ---
EXAMINATION TYPE: US abdomen complete DATE OF EXAM: 02/19/2025 COMPARISON: 12/04/2024, CT 10/29/2019 CLINICAL INDICATION: Female, 70 years old with history of R11.0 ABDOMINAL PAIN; 1-2 weeks post cholec ystectomy TECHNIQUE: Grayscale and color Doppler imaging of the abdomen was performed. FINDINGS: EXAM MEASUREMENTS: Liver Length: 15.9 cm Gallbladder: Surgically absent CBD: 1.0 cm, color Doppler imaging was utilized to isolate the common bile duct for measurement. Spleen: 9.4 x 5.3 x 4.8 cm Right Kidney: 12.2 x 5.2 x 4.9 cm Left Kidney: 10.3 x 5.3 x 4.8 cm POLE INSPECTOR NOTES: Difficult exam due to patient tolerance and body habitus Pancreas: 2 mm main pancreatic duct identified, within normal limits. Liver: No focal lesion. Scattered double ducts are noted. Gallbladder: Surgically absent Evidence for sonographic Deluca's sign: No CBD: Dilated Spleen: Limited visualization, WNL as visualized. Right Kidney: wnl, No hydronephrosis or calculi - septated cystic structure seen = 3.4 x 4.0 x 3.4 c m Left Kidney: Limited visualization, WNL as visualized. Upper IVC: wnl Abd Aorta: wnl IMPRESSION: 1. Redemonstrated complex cystic lesion of the right kidney stable from the recent prior ultrasound a t 4.0 cm. However, the lesion appeared to measure smaller at 2.1 cm back in 2020. Recommend further d etailed characterization with a follow-up contrast-enhanced renal mass protocol CT or MRI. 2. Intrahepatic and extrahepatic biliary ductal dilatation with the bile duct measuring up to 1 cm. P ossibly related to postcholecystectomy status. Correlate with alkaline phosphatase and bilirubin leve ls to exclude biliary obstruction. [facility], , 02/19/2025 8:54 PM
== END | disposition home or self-care (01) ==
LOC: RADUSWWP 09:39
PROVIDERS: ATTEND Internal Medicine Hospice and Palliative Medicine
DX: N28.89 Other specified disorders of kidney and ureter (principal); K83.8 Other specified diseases of biliary tract; R11.0 Nausea
CPT/HCPCS: 76700

== ENCOUNTER 2025-03-30 10:59 | Emergency (ER) | payer OTHER ==
[2025-03-30 11:20] VITALS: RESP 18
[2025-03-30] MEDS ORDERED: PANTOPRAZOLE 40 MG/10 ML VIAL IVP STA (12:28)
[2025-03-30] MEDS ORDERED: LORazepam 1 MG/0.5 ML VIAL IV STA (12:29)
--- NOTE | 2025-03-30 12:31 | ED ---
General Adult HPI - General Chief complaint: Neuro Symptoms/Deficit Stated complaint: tremors Time Seen by Provider: 03/30/25 11:48 Source: patient, RN notes reviewed Mode of arrival: ambulatory Limitations: no limitations - History of Present Illness Initial comments: Patient is a 70-year-old female present to the emergency department with concerns with her tremors. Patient does have chronic tremors for several years. Patient states she was here for outpatient CT scan of the abdomen pelvis secondary to abdominal discomfort. Patient states she has had abdominal discomfort for a long time. Patient states her tremors got worse and she decided to come to the emergency department. Patient requesting shot for her tremors. - Related Data Home Medications Medication Instructions Recorded Confirmed Losartan Potassium [Cozaar] 100 mg PO DAILY 10/16/21 07/14/23 Omeprazole 40 mg PO AC-BRKFST 10/16/21 07/14/23 Albuterol Inhaler [Ventolin Hfa 1 - 2 puff INHALATION RT-Q6H PRN 08/31/22 07/14/23 Inhaler] Ergocalciferol [Vitamin D2 (1250 1,250 mcg PO Q7D 08/31/22 07/14/23 Mcg = 60469 Iu)] Gabapentin 300 mg PO BID 08/31/22 07/14/23 Metoprolol Succinate (ER) [Toprol 25 mg PO DAILY 08/31/22 07/14/23 XL] Cetirizine HCl [Zyrtec] 10 mg PO DAILY PRN 12/17/22 07/14/23 Clotrimazole/Betameth Cream 1 applic TOPICAL BID PRN 05/20/23 07/14/23 [Lotrisone] Furosemide [Lasix] 40 mg PO BID 05/20/23 07/14/23 Budesonide/Formoterol Fumarate 2 puff INHALATION RT-BID 06/29/23 07/14/23 [Symbicort 160-4.5 Mcg Inhaler] methocarbamoL 500 mg PO TID 07/14/23 07/14/23 Previous Rx's Medication Instructions Recorded Rosuvastatin [Crestor] 10 mg PO HS #30 tab 10/20/19 levETIRAcetam [Keppra] 500 mg PO BID #60 tab 10/20/19 HYDROcodone/APAP 10-325MG [[place] 1 tab PO Q8H #0 05/23/23 10-325] Nicotine 21Mg/24Hr Patch [Habitrol] 1 patch TRANSDERM DAILY #0 patch 07/02/23 DULoxetine HCL [Cymbalta] 60 mg PO DAILY 30 Days #30 cap 07/19/23 risperiDONE [RisperDAL] 1 mg PO HS 30 Days #30 tab 07/19/23 traZODone HCL 100 mg PO HS 30 Days #30 tab 07/19/23 Allergies Allergy/AdvReac Type Severity Reaction Status Date / Time nitrofurantoin AdvReac Abdominal Verified 03/30/25 11:21 [From Macrobid] Pain/Nausea/Vomiting NSAIDS (Non-Steroidal AdvReac Nausea & Verified 03/30/25 11:21 Anti-Inflamma Vomiting Review of Systems ROS Statement: Those systems with pertinent positive or pertinent negative responses have been documented in the HPI. ROS Other: All systems not noted in ROS Statement are negative. Constitutional: Denies: fever Eyes: Denies: eye pain ENT: Denies: ear pain Gastrointestinal: Reports: as per HPI. Denies: vomiting, diarrhea, constipation Neurological: Reports: as per HPI. 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 hx. colon polyps, History of Any Multi-Drug Resistant Organisms: None Reported Past Surgical History: Adenoidectomy, Back Surgery, Breast Surgery, Joint Replacement, Orthopedic Surgery, Tonsillectomy Additional Past Surgical History / Comment(s): LEFT HAND SURGERY, BILATERAL ORIF WRISTS , RIGHT GANGLION CYST REMOVED, LEEP, COLONOSCOPY, EGD, BILATERAL CATARACTS WITH LENS IMPLANTS, RIGHT BREAST BIOPSY, BACK SURGERY X2, ONE WAS A LAMINECTOMY, LEFT KNEE AND LEFT HIP REPLACEMENTS, PAIN INJECTION FOR BACK PAIN. Past Anesthesia/Blood Transfusion Reactions: No Reported Reaction Past Psychological History: Anxiety, Depression Smoking Status: Current every day smoker Past Alcohol Use History: Occasional Past Drug Use History: None Reported - Past Family History Brother(s) Family Medical History: Cancer Additional Family Medical History / Comment(s): PANCREATITIS. Mother Family Medical History: CVA/TIA, Deep Vein Thrombosis (DVT), Hypertension, Memory Impairment Additional Family Medical History / Comment(s): of Alzheimer's at age 70. Father Family Medical History: Coronary Artery Disease (CAD), CVA/TIA, Diabetes Mellitus, Hypertension Additional Family Medical History / Comment(s): at age 68. General Exam Limitations: no limitations General appearance: alert, in no apparent distress, other (Patient does have resting tremor that she is easily able to overcome during conversation and following tasks.) Head exam: Present: atraumatic Eye exam: Present: normal appearance, PERRL, EOMI Respiratory exam: Present: normal lung sounds bilaterally Cardiovascular Exam: Present: regular rate, normal rhythm GI/Abdominal exam: Present: soft, tenderness (Mild diffuse tenderness). Absent: pulsatile mass Extremities exam: Present: normal inspection Neurological exam: Present: alert, CN II-XII intact. Absent: motor sensory deficit Psychiatric exam: Present: normal affect, normal mood Skin exam: Present: normal color Course Vital Signs 03/30/25 11:14 Temperature 97.2 F L Pulse Rate 83 Respiratory 18 Rate Blood Pressure 160/92 O2 Sat by Pulse 93 L Oximetry Medical Decision Making - Medical Decision Making Was pt. sent in by a medical professional or institution (, PA, HOME CARE RN, urgent care, hospital, or jail...) When possible be specific @ -Patient was sent from primary care physician for outpatient CT scan Did you speak to anyone other than the patient for history (EMS, parent, family, police, friend...)? What history was obtained from this source @ -No Did you review nursing and triage notes (agree or disagree)? Why? @ -I reviewed and agree with nursing and triage notes Were old charts reviewed (outside hosp., previous admission, EMS record, old EKG, old radiological studies, urgent care reports/EKG's, jail records)? Report findings @ -No old charts were reviewed Differential Diagnosis (chest pain, altered mental status, abdominal pain women, abdominal pain men, vaginal bleeding, weakness, fever, dyspnea, syncope, headache, dizziness, GI bleed, back pain, seizure, CVA, palpatations, mental he alth, musculoskeletal)? @ -Differential Abdominal Pain Women: Appendicitis, Cholecystitis, diverticulosis, ischemic bowel, pancreatitis, hepatitis, UTI, gastroenteritis, AAA, incarcerated hernia, bowel obstruction, constipation, inflammatory bowel, hepatitis, peptic ulcer disease, splenic infarction, perforated viscus, vulvitis, ovarian torsion, PID, kidney stone, placenta abruption, this is not meant to be an all-inclusive list EKG interpreted by me (3pts min.). @ -As above X-rays interpreted by me (1pt min.). @ -None done CT interpreted by me (1pt min.). @ -CT abdomen pelvis shows right renal cyst U/S interpreted by me (1pt. min.). @ -None done What testing was considered but not performed or refused? (CT, X-rays, U/S, labs)? Why? @ -CBC and chemistry was canceled. Considered reordering this however patient refuses and wants to leave What meds were considered but not given or refused? Why? @ -None Did you discuss the management of the patient with other professionals (radha carrizales i.e. , PA, HOME CARE RN, lab, RT, psych nurse, social worker psychiatric, perioperative educator, teacher, classification officer, bottle caser)? Give summary @ -No Was smoking cessation discussed for >3mins.? @ -No Was critical care preformed (if so, how long)? @ -No Were there social determinants of health that impacted care today? How? (Homelessness, low income, unemployed, alcoholism, drug addiction, transportation, low edu. Level, literacy, decrease access to med. care, fpc, rehab)? @ -No Was there de-escalation of care discussed even if they declined (Discuss DNR or withdrawal of care, Hospice)? DNR status @ -No What co-morbidities impacted this encounter? (DM, HTN, Smoking, COPD, CAD, Cancer, CVA, ARF, Chemo, Hep., AIDS, mental health diagnosis, sleep apnea, morbid obesity)? @ -History of chronic tremors. History of chronic abdominal pain Was patient admitted / discharged? Hospital course, mention meds given and route, prescriptions, significant lab abnormalities, going to OR and other pertinent info. @ -Patient presents with acute on chronic tremors. Patient significantly improved on reevaluation. Patient requesting discharge home. Workup unremarkable. CBC and chemistry were canceled however patient refuses to have them redrawn and is in agreement to follow-up with her doctor. Patient is updated on results Undiagnosed new problem with uncertain prognosis? @ -No Drug Therapy requiring intensive monitoring for toxicity (Heparin, Nitro, Insulin, Cardizem)? @ -No Were any procedures done? @ -No Diagnosis/symptom? @ -Tremors Acute, or Chronic, or Acute on Chronic? @ -Acute on chronic Uncomplicated (without systemic symptoms) or Complicated (systemic symptoms)? @ -Complicated with abdominal discomfort Side effects of treatment? @ -No Exacerbation, Progression, or Severe Exacerbation? @ -No Poses a threat to life or bodily function? How? (Chest pain, [place], [place], pneumonia, PE, COPD, DKA, ARF, appy, cholecystitis, CVA, Diverticulitis, Homicidal, Suicidal, threat to staff... and all critical care pts) @ -No - Lab Data Lab Results 03/30/25 03/30/25 Range/Units 12:55 12:55 PT 10.7 (10.0-12.5) sec INR 1.0 (<1.2) APTT 26.1 (22.0-30.0) sec Magnesium 2.0 (1.6-2.3) mg/dL Amylase 52 (30-110) U/L Lipase 56 (23-300) U/L Disposition Clinical Impression: Tremor Disposition: HOME SELF-CARE Condition: Stable Instructions (If sedation given, give patient instructions): Tremors (ED) Additional Instructions: Please do follow-up with your primary care physician in the next day or 2 for recheck. Return for increasing pain, increasing tremors, weakness or confusion, fever, worsening symptoms or any other concerns. Is patient prescribed a controlled substance at d/c from ED?: No Referrals: None,Stated [Primary Care Provider] - 1-2 days Cristian Paz MD [REFERRING] - 1-2 days Time of Disposition: 14:45
[2025-03-30 13:19] LABS: Partial Thromboplastin Time 26.1 sec (22.0-30.0); Prothrombin Time 10.7 sec (10.0-12.5)
--- NOTE | 2025-03-30 14:33 | CT ---
EXAMINATION TYPE: CT abdomen pelvis w con DATE OF EXAM: 03/30/2025 1:32 PM COMPARISON: None. CLINICAL INDICATION: Female, 70 years old with history of abp, Abd pain. TECHNIQUE: Axial images were obtained from above the diaphragm to the pubic rami in the axial plane a t 5 mm thick sections. Reconstructed images are reviewed on the computer in the coronal plane. CONTRAST: 100 mL mL of Isovue 300. Study performed with Oral Contrast DLP: 1756.7 mGycm, Automated exposure control for dose reduction was used. FINDINGS: Limited CT sections are obtained the lung bases. The lung bases are clear. CT ABDOMEN: Liver: Normal Spleen: Normal Pancreas: Normal Adrenal glands: The adrenal glands are normal. Gallbladder: Not identified Kidneys: No masses are evident. No hydronephrosis is present. There appears to be a septated cyst a t the inferior pole right kidney measuring 5.4 x 3.6 cm. Ultrasound measurements 4.6 x 3.4 cm. There may be some soft tissue density along the inferior posterior aspect of this complex cyst measuring 1. 7 cm. Series 201 image 50. Delayed images were obtained through the kidneys. Underlying mass is not e xcluded. MRI may be useful to evaluate the inferior density in the septated cyst. Neoplasm cannot be excluded. Aorta: Vascular calcification is within the aorta. Inferior vena cava: Normal. CT PELVIS: Loops of bowel within the abdomen and pelvis are normal. Contrast is predominantly within the colon. There are loops of bowel which are incompletely distended or lack oral contrast limiting their emeli luation. Appendix: Normal as visualized. Urinary bladder: Normal. Genitourinary structures: Uterus is normal. Adnexa is unremarkable. Osseous structures: No suspicious lytic or sclerotic lesions. IMPRESSION: 1. Complex septated cyst inferior pole right kidney. If additional imaging at this time would be of benefit, MRI could be performed. Short-term follow-up is recommended. [facility], , 03/30/2025 2:31 PM
[2025-03-30 15:14] VITALS: BP 132/86; PULSE 72; TEMP 98
== END 2025-03-30 15:14 | disposition home or self-care (01) ==
LOC: EC 10:59
DX: R25.1 Tremor, unspecified (principal); G89.29 Other chronic pain; R10.84 Generalized abdominal pain; F17.200 Nicotine dependence, unspecified, uncomplicated; Z88.1 Allergy status to other antibiotic agents; Z88.6 Allergy status to analgesic agent; Z86.73 Personal history of transient ischemic attack (TIA), and cerebral infarction without residual deficits
CPT/HCPCS: 36415; 82150; 83690; 83735; 85610; 85730; 74177; 99284; Q9967

== ENCOUNTER → 2025-03-30 | Outpatient (CLI) | payer OTHER ==
[2025-03-30 10:27] LABS: African American GFR (CKD) >90 (>60 ml/min/1.73 sqM); Blood Urea Nitrogen 15 mg/dL (7-17); Non-African American GFR(CKD) >90 (>60 ml/min/1.73 sqM)
== END | disposition home or self-care (01) ==
LOC: RADCTMAIN 09:24
PROVIDERS: ATTEND Internal Medicine Hospice and Palliative Medicine
DX: R11.0 Nausea (principal)
CPT/HCPCS: 82565; 84520

== ENCOUNTER 2025-05-14 07:42 | Emergency (ER) | payer OTHER ==
[2025-05-14 07:50] VITALS: RESP 18
[2025-05-14] MEDS: LORazepam 1 MG/0.5 ML VIAL IV STA ×2 (08:18→08:23)
[2025-05-14] MEDS: ACETAMINOPHEN TAB 325 MG TAB PO STA (08:21)
[2025-05-14 08:24] LABS: Basophils # (A) 0.06 10*3/uL (0.00-0.10); Basophils % (A) 0.9 %; Eosinophils # (A) 0.32 10*3/uL (0.04-0.35); Eosinophils % (A) 5.0 %; HCT 44.4 % (37.2-46.3); HGB 14.4 g/dL (12.0-15.0); Lymphocytes # (A) 1.77 10*3/uL (0.90-5.00); Lymphocytes % (A) 27.6 %; MCH 27.3 pg (27.0-32.0); MCHC 32.4 g/dL (32.0-37.0); MCV 84.1 fL (80.0-97.0); Monocytes # (A) 0.66 10*3/uL (0.20-1.00); Monocytes % (A) 10.3 %; Neutrophils # (A) 3.59 10*3/uL (1.80-7.70); Neutrophils % (A) 56.0 %; Platelet Count 258 10*3/uL (140-440); RBC 5.28 10*6/uL (4.10-5.20); RDW 16.8 % (11.5-14.5); WBC 6.41 10*3/uL (4.50-10.00)
[2025-05-14 08:25] VITALS: PULSE 78
[2025-05-14 08:35] LABS: INR 0.9 (<1.2); Partial Thromboplastin Time 25.4 sec (22.0-30.0); Prothrombin Time 10.1 sec (10.0-12.5)
[2025-05-14 08:42] LABS: Lactic Acid, Venous 1.3 mmol/L (0.7-2.0)
[2025-05-14 08:44] LABS: ALT 17 U/L (4-34); AST 22 U/L (14-36); African American GFR (CKD) >90 (>60 ml/min/1.73 sqM); Albumin 4.5 g/dL (3.5-5.0); Alkaline Phosphatase 83 U/L (38-126); Anion Gap 9 mmol/L; Blood Urea Nitrogen 19 mg/dL (7-17); Calcium 10.0 mg/dL (8.4-10.2); Carbon Dioxide 26 mmol/L (22-30); Chloride 105 mmol/L (98-107); Glucose 120 mg/dL (74-99); Magnesium 2.1 mg/dL (1.6-2.3); Non-African American GFR(CKD) >90 (>60 ml/min/1.73 sqM); Potassium 5.1 mmol/L (3.5-5.1); Sodium 140 mmol/L (137-145); Total Protein 7.1 g/dL (6.3-8.2)
--- NOTE | 2025-05-14 08:51 | ED ---
General Adult HPI - General Chief complaint: Fall Stated complaint: Fall Time Seen by Provider: 05/14/25 07:50 Source: patient, EMS, RN notes reviewed, old records reviewed Mode of arrival: EMS Limitations: no limitations - History of Present Illness Initial comments: 70-year-old [facility] falls over the last week. He has a history of chronic "tremors" that are full-body and have been ongoing for years. Also history of seizure disorder and states she has been compliant with medications. States she has had numerous mechanical falls which she attributes to her not being able to use the walker she would like to use at her facility. She states that staff that her want her to use a different walker which she has difficulty using. No obvious injuries but states she does have some right hip pain, and did hit her head a few days ago. She is not on blood thinners. No loss of consciousness. Denies chest pain or abdominal pain. Has chronic lower back pain. Presents for further evaluation at this time.Patient denies any urinary or bowel incontinence or retention, denies any saddle paresthesias, denies any lower extremity paralysis. - Related Data Home Medications Medication Instructions Recorded Confirmed Losartan Potassium [Cozaar] 100 mg PO DAILY 10/16/21 07/14/23 Omeprazole 40 mg PO AC-BRKFST 10/16/21 07/14/23 Albuterol Inhaler [Ventolin Hfa 1 - 2 puff INHALATION RT-Q6H PRN 08/31/22 07/14/23 Inhaler] Ergocalciferol [Vitamin D2 (1250 1,250 mcg PO Q7D 08/31/22 07/14/23 Mcg = 07880 Iu)] Gabapentin 300 mg PO BID 08/31/22 07/14/23 Metoprolol Succinate (ER) [Toprol 25 mg PO DAILY 08/31/22 07/14/23 XL] Cetirizine HCl [Zyrtec] 10 mg PO DAILY PRN 12/17/22 07/14/23 Clotrimazole/Betameth Cream 1 applic TOPICAL BID PRN 05/20/23 07/14/23 [Lotrisone] Furosemide [Lasix] 40 mg PO BID 05/20/23 07/14/23 Budesonide/Formoterol Fumarate 2 puff INHALATION RT-BID 06/29/23 07/14/23 [Symbicort 160-4.5 Mcg Inhaler] methocarbamoL 500 mg PO TID 07/14/23 07/14/23 Previous Rx's Medication Instructions Recorded Rosuvastatin [Crestor] 10 mg PO HS #30 tab 10/20/19 levETIRAcetam [Keppra] 500 mg PO BID #60 tab 10/20/19 HYDROcodone/APAP 10-325MG [Butler 1 tab PO Q8H #0 05/23/23 10-325] Nicotine 21Mg/24Hr Patch [Habitrol] 1 patch TRANSDERM DAILY #0 patch 07/02/23 DULoxetine HCL [Cymbalta] 60 mg PO DAILY 30 Days #30 cap 07/19/23 risperiDONE [RisperDAL] 1 mg PO HS 30 Days #30 tab 07/19/23 traZODone HCL 100 mg PO HS 30 Days #30 tab 07/19/23 Allergies Allergy/AdvReac Type Severity Reaction Status Date / Time nitrofurantoin AdvReac Abdominal Verified 05/14/25 07:51 [From Macrobid] Pain/Nausea/Vomiting NSAIDS (Non-Steroidal AdvReac Nausea & Verified 05/14/25 07:51 Anti-Inflamma Vomiting Review of Systems ROS Statement: Those systems with pertinent positive or pertinent negative responses have been documented in the HPI. Review of Systems: CONST: Denies fever EYES: Denies blurry vision ENT: Denies nasal congestion C/V: Denies Chest pain RESP: Denies shortness of breath GI: Denies abdominal pain : Denies dysuria SKIN: Denies rash. MSK: Denies joint pain. NEURO: Denies headache ROS Other: All systems not noted in ROS Statement are negative. 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 hx. colon polyps, History of Any Multi-Drug Resistant Organisms: None Reported Past Surgical History: Adenoidectomy, Back Surgery, Breast Surgery, Joint Replacement, Orthopedic Surgery, Tonsillectomy Additional Past Surgical History / Comment(s): LEFT HAND SURGERY, BILATERAL ORIF WRISTS , RIGHT GANGLION CYST REMOVED, LEEP, COLONOSCOPY, EGD, BILATERAL CATARACTS WITH LENS IMPLANTS, RIGHT BREAST BIOPSY, BACK SURGERY X2, ONE WAS A LAMINECTOMY, LEFT KNEE AND LEFT HIP REPLACEMENTS, PAIN INJECTION FOR BACK PAIN. Past Anesthesia/Blood Transfusion Reactions: No Reported Reaction Past Psychological History: Anxiety, Depression Smoking Status: Current every day smoker Past Alcohol Use History: Occasional Past Drug Use History: None Reported - Past Family History Brother(s) Family Medical History: Cancer Additional Family Medical History / Comment(s): PANCREATITIS. Mother Family Medical History: CVA/TIA, Deep Vein Thrombosis (DVT), Hypertension, Memory Impairment Additional Family Medical History / Comment(s): of Alzheimer's at age 70. Father Family Medical History: Coronary Artery Disease (CAD), CVA/TIA, Diabetes Mellitus, Hypertension Additional Family Medical History / Comment(s): at age 68. General Exam - General Exam Comments Initial Comments: General: Appears in no acute distress. HEAD: Normal with no signs of head trauma. Negative Berman sign. Negative raccoon eyes. EYES: PERRLA, EOMI, conjunctiva normal, no discharge. Pupils are 3 mm and equal bilaterally. ENT: Hearing grossly intact, normal oropharynx. RESPIRATORY: Clear breath sounds bilaterally. No wheezes, rales, or rhonchi. C/V: Regular rate and rhythm. S1 and S2 auscultated, no edema, peripheral pulses 2+ and intact throughout ABD: Abd is soft, nontender, nondistended EXT: Normal range of motion, no obvious deformity. Some mild tenderness palpation of the right hip. Pelvis is stable. No significant midline thoracic spine tenderness to palpation. Chronic midline cervical spine tenderness to palpation per patient. Mild midline lumbar spine tenderness to palpation. No step-offs or deformities of the spine present. SKIN: No rashes or lesions observed on exposed skin. NEURO: Alert and oriented x 4. Cranial nerves II-XII intact. No focal sensory or strength deficits. GCS 15. No focal deficits. Limitations: no limitations Course Vital Signs 05/14/25 05/14/25 07:45 08:24 Temperature 98.3 F Pulse Rate 82 78 Respiratory 18 18 Rate Blood Pressure 178/103 147/80 O2 Sat by Pulse 92 L 93 L Oximetry Medical Decision Making - Medical Decision Making Was pt. sent in by a medical professional or institution (INGE Varela, AIRCONDITIONING DRAFTING OFFICER, urgent care, hospital, or care home...) When possible be specific @ -No Did you speak to anyone other than the patient for history (EMS, parent, family, police, friend...)? What history was obtained from this source @ -No Did you review nursing and triage notes (agree or disagree)? Why? @ -I reviewed and agree with nursing and triage notes Were old charts reviewed (outside hosp., previous admission, EMS record, old EKG, old radiological studies, urgent care reports/EKG's, care home records)? Report findings @ -No old charts were reviewed Differential Diagnosis (chest pain, altered mental status, abdominal pain women, abdominal pain men, vaginal bleeding, weakness, fever, dyspnea, syncope, headache, dizziness, GI bleed, back pain, seizure, CVA, palpatations, mental health, musculoskeletal)? @ -Differential Musculoskeletal Muscular strain, contusion, ligament sprain, fracture, arthritis, septic arthritis, bursitis, cellulitis, muscle spasm, nerve compression, DVT, arterial occlusion, herpes zoster, electrolyte abnormality, tumor.... This is not meant to be in all inclusive list EKG interpreted by me (3pts min.). @ -As above X-rays interpreted by me (1pt min.). @ -X-rays of the chest, right hip and pelvis negative for any obvious acute traumatic injury. CT interpreted by me (1pt min.). @ -CT brain shows chronic encephalomalacia unchanged from 2022. Patient has some degenerative changes of the cervical spine as well as lumbar spine. No obvious acute process. U/S interpreted by me (1pt. min.). @ -None done What testing was considered but not performed or refused? (CT, X-rays, U/S, labs)? Why? @ -None What meds were considered but not given or refused? Why? @ -None Did you discuss the management of the patient with other professionals (professionals i.e. INGE Varela, AIRCONDITIONING DRAFTING OFFICER, lab, RT, psych nurse, social insurance adviser, dump truck driver off highway, teacher, fisheries technical officer, continuous pillowcase cutter)? Give summary @ -No Was smoking cessation discussed for >3mins.? @ -No Was critical care preformed (if so, how long)? @ -No Were there social determinants of health that impacted care today? How? (Homelessness, low income, unemployed, alcoholism, drug addiction, transportation, low edu. Level, literacy, decrease access to med. care, [facility], rehab)? @ -No Was there de-escalation of care discussed even if they declined (Discuss DNR or withdrawal of care, Hospice)? DNR status @ -No What co-morbidities impacted this encounter? (DM, HTN, Smoking, COPD, CAD, Cancer, CVA, ARF, Chemo, Hep., AIDS, mental health diagnosis, sleep apnea, morbid obesity)? @ -None Was patient admitted / discharged? Hospital course, mention meds given and route, prescriptions, significant lab abnormalities, going to OR and other pertinent info. @ -Based on patient's presentation physical exam, presents emergency department for multiple mechanical falls over the last week or so. He has no obvious significant injuries but we will obtain CT brain as she did hit her head a few days ago in addition to the CT C-spine, lumbar spine as well as right hip x-ray and chest x-ray. Labs were also be obtained. Patient was in agreement this plan. Vitals are within acceptable limits. Has a history of chronic "tremors" which she states to treat with Ativan and she will be administered a dose of Ativan at this time. Patient was in agreement this plan. EKG showed no signs of acute ischemia.Imaging returned negative for any obvious acute process. Laboratory studies are all within acceptable limits. On reevaluation, after the patient. She will be discharged home at this time. She was in agreement this plan. Strict return precautions discussed. Recommend she continue to use her walker at home to avoid falls. I instructed the patient to follow up with their PCP in the next 1-3 days. I explained that the patient should return to the emergency department if they experience any worsening symptoms. Strict return precautions were discussed with the patient. The patient expressed understanding of these instructions. I answered all questions that the patient had. The patient was discharged home in good condition with their prescriptions and follow up information. Undiagnosed new problem with uncertain prognosis? @ -No Drug Therapy requiring intensive monitoring for toxicity (Heparin, Nitro, Insulin, Cardizem)? @ -No Were any procedures done? @ -No Diagnosis/symptom? @ -Fall, chronic pain Acute, or Chronic, or Acute on Chronic? @ -Acute Uncomplicated (without systemic symptoms) or Complicated (systemic symptoms)? @ -Uncomplicated Side effects of treatment? @ -None Exacerbation, Progression, or Severe Exacerbation] @ -No Poses a threat to life or bodily function? @ -Unlikely at this time. - Lab Data Result diagrams: 05/14/25 08:11 05/14/25 08:11 Lab Results 05/14/25 05/14/25 05/14/25 Range/Units 08:11 08:11 08:11 WBC 6.41 (4.50-10.00) 10*3/uL RBC 5.28 H (4.10-5.20) 10*6/uL Hgb 14.4 (12.0-15.0) g/dL Hct 44.4 (37.2-46.3) % MCV 84.1 (80.0-97.0) fL MCH 27.3 (27.0-32.0) pg MCHC 32.4 (32.0-37.0) g/dL Plt Count 258 (140-440) 10*3/uL MPV 9.8 (9.5-12.2) fL Immature Gran % (Auto) 0.2 % Neutrophils % 56.0 % Lymphocytes % 27.6 % Monocytes % 10.3 % Eosinophils % 5.0 % Basophils % 0.9 % Immature Gran # 0.01 (0.00-0.04) 10*3/uL Neutrophils # 3.59 (1.80-7.70) 10*3/uL Lymphocytes # 1.77 (0.90-5.00) 10*3/uL Monocytes # 0.66 (0.20-1.00) 10*3/uL Eosinophils # 0.32 (0.04-0.35) 10*3/uL Basophils # 0.06 (0.00-0.10) 10*3/uL PT 10.1 (10.0-12.5) sec INR 0.9 (<1.2) APTT 25.4 (22.0-30.0) sec Sodium 140 (137-145) mmol/L Potassium 5.1 (3.5-5.1) mmol/L Chloride 105 (98-107) mmol/L Carbon Dioxide 26 (22-30) mmol/L Anion Gap 9 mmol/L BUN 19 H (7-17) mg/dL Creatinine 0.66 (0.52-1.04) mg/dL Est GFR (CKD-EPI)AfAm >90 (>60 ml/min/1.73 sqM) Est GFR (CKD-EPI)NonAf >90 (>60 ml/min/1.73 sqM) Glucose 120 H (74-99) mg/dL Plasma Lactic Acid Boni (0.7-2.0) mmol/L Calcium 10.0 (8.4-10.2) mg/dL Magnesium 2.1 (1.6-2.3) mg/dL Total Bilirubin 0.4 (0.2-1.3) mg/dL AST 22 (14-36) U/L ALT 17 (4-34) U/L Alkaline Phosphatase 83 (38-126) U/L Ammonia (<30) umol/L Total Protein 7.1 (6.3-8.2) g/dL Albumin 4.5 (3.5-5.0) g/dL 05/14/25 Range/Units 08:11 WBC (4.50-10.00) 10*3/uL RBC (4.10-5.20) 10*6/uL Hgb (12.0-15.0) g/dL Hct (37.2-46.3) % MCV (80.0-97.0) fL MCH (27.0-32.0) pg MCHC (32.0-37.0) g/dL Plt Count (140-440) 10*3/uL MPV (9.5-12.2) fL Immature Gran % (Auto) % Neutrophils % % Lymphocytes % % Monocytes % % Eosinophils % % Basophils % % Immature Gran # (0.00-0.04) 10*3/uL Neutrophils # (1.80-7.70) 10*3/uL Lymphocytes # (0.90-5.00) 10*3/uL Monocytes # (0.20-1.00) 10*3/uL Eosinophils # (0.04-0.35) 10*3/uL Basophils # (0.00-0.10) 10*3/uL PT (10.0-12.5) sec INR (<1.2) APTT (22.0-30.0) sec Sodium (137-145) mmol/L Potassium (3.5-5.1) mmol/L Chloride (98-107) mmol/L Carbon Dioxide (22-30) mmol/L Anion Gap mmol/L BUN (7-17) mg/dL Creatinine (0.52-1.04) mg/dL Est GFR (CKD-EPI)AfAm (>60 ml/min/1.73 sqM) Est GFR (CKD-EPI)NonAf (>60 ml/min/1.73 sqM) Glucose (74-99) mg/dL Plasma Lactic Acid Boni 1.3 (0.7-2.0) mmol/L Calcium (8.4-10.2) mg/dL Magnesium (1.6-2.3) mg/dL Total Bilirubin (0.2-1.3) mg/dL AST (14-36) U/L ALT (4-34) U/L Alkaline Phosphatase (38-126) U/L Ammonia <9 (<30) umol/L Total Protein (6.3-8.2) g/dL Albumin (3.5-5.0) g/dL - EKG Data -: EKG Interpreted by Me EKG Comments: 12-lead Electrocardiogram Interpretation Note EKG was reviewed and interpreted by myself. 12-lead ECG performed at 0759 is interpreted by me as revealing normal sinus rhythm at a rate of 79 beats per minute. Casanova is normal. GA interval is 139 ms, QRS duration is 90 ms, QTc is 391 ms.. There were no ST or T wave abnormalities to suggest myocardial ischemia or injury. R wave progression across the precordium was satisfactory. By my interpretation this EKG is non-diagnostic for acute ischemia. Disposition Clinical Impression: Fall, Chronic pain Disposition: HOME SELF-CARE Condition: Good Instructions (If sedation given, give patient instructions): Fall Prevention for Older Adults (ED) Is patient prescribed a controlled substance at d/c from ED?: No Referrals: Cristian Paz MD [Primary Care Provider] - 1-2 days Time of Disposition: 10:17
[2025-05-14] MEDS: SODIUM CHLORIDE 0.9% 500 ML 500 ML IV ONE (09:08)
--- NOTE | 2025-05-14 09:11 | CT ---
EXAMINATION TYPE: CT brain cspine wo con DATE OF EXAM: 05/14/2025 9:01 AM COMPARISON: Brain 05/20/2023 CLINICAL INDICATION: Female, 70 years old with history of fall, back and neck pain after multiple fal ls., pain Technique: Examination of the head was done in axial plane without intravenous contrast. Coronal and sagittal reconstructions performed. CT of the cervical spine was obtained in axial plane without intravenous injection of contrast mater ial. Coronal and sagittal reformatted images were obtained from the axial views for evaluation of f ractures, spinal alignment and canal. CT DLP: 1486.5 mGycm, Automated exposure control for dose reduction was used. FINDINGS: Head: Redemonstrated large areas of encephalomalacia bilateral parieto-occipital junctions and smaller area s right greater than left occipital lobes. Wedge-shaped encephalomalacia bilateral cerebellar hemispheres also unchanged. Mild generalized supratentorial volume loss. There is no evidence of acute intracranial hemorrhage, acute ischemic changes, mass, mass-effect, or extra-axial fluid collection. There is no effacement of cerebral sulci or basal subarachnoid cister ns. There is no hydrocephalus. There is no midline shift. Pop-white matter distinction is preserv ed. Leftward nasal septal deviation. Moderate mucosal thickening anterior right ethmoid air cells. Mastoi d air cells well pneumatized. The globes are intact. Cervical spine: No craniocervical junction abnormalities, predental space widening, prevertebral soft tissue swelling . Reversal of the normal cervical lordosis with moderate degenerative disc disease and facet/uncoverteb ral joint arthropathy. Degenerative grade 1 anterolisthesis C2-C3 and C3-C4. No sharona canal compromise appreciated by CT though assessment limited by artifact from the patient's shoulders. No acute fracture is seen. Variable moderate neuroforaminal stenoses throughout the mid and lower cervical spine. Degenerative change at bilateral sternoclavicular joints. Sagittal and coronal reformatted images confirm above findings. COMBINED IMPRESSION: 1. Encephalomalacia bilateral parieto-occipital junctions and right greater than left occipital lobes . Unchanged from 2022 suggesting areas of prior infarcts. Clinically correlate. No acute intracranial abnormality seen. 2. No acute fracture of the cervical spine. Moderate spondylotic change with degenerative grade 1 ant erolisthesis C2-C3 and C3-C4. [facility], , 05/14/2025 9:09 AM
--- NOTE | 2025-05-14 09:17 | CT ---
EXAMINATION TYPE: CT lumbar spine wo con DATE OF EXAM: 05/14/2025 9:01 AM COMPARISON: None. CLINICAL INDICATION: Female, 70 years old with history of fall, pain; PHH, back and neck pain after m ultiple falls. TECHNIQUE: CT of the lumbar spine without IV contrast. Coronal and sagittal reconstructions performed . CT DLP: 2013.6 mGycm, Automated exposure control for dose reduction was used. FINDINGS: Diffuse osteopenia. Postsurgical change L5-S1 posterior and interbody lumbar fusion. Moderate to severe degenerative disc disease mid to lower lumbar spine and advanced hypertrophic face t arthropathy throughout. Degenerative grade 1 retrolisthesis L2-L3 and L3-L4. Grade 1 anterolisthesis L4-L5. Endplate Schmorl's nodes are present in T11, L2, and L3 levels. Suspected chronic given the lack of a ny surrounding soft tissue swelling though the degree of osteopenia limits assessment. Disc osteophyte complex that T12-L1 and L1-L2 contributes to at least mild focal spinal canal stenose s. Results in variable mild to moderate neural foraminal stenoses throughout the upper and mid lumbar sp ine. Mild degenerative change SI joints. IMPRESSION: 1. Scattered endplate Schmorl's nodes at T11, L2, and L3, suspected chronic given the lack of any alyssa rounding soft tissue swelling though the degree of osteopenia limits assessment. No sharona vertebral c ompression collapse or acute fracture is seen. 2. Patient status post L5-S1 posterior and interbody lumbar fusion. 3. Moderate to severe degenerative disc disease mid to lower lumbar spine and advanced hypertrophic f acet arthropathy throughout. Degenerative grade 1 spondylolisthesis L2-L3, L3-L4, L4-L5. 4. At least mild spinal canal stenoses at T12-L1 and L1-L2 due to disc osteophyte complex. [facility], , 05/14/2025 9:15 AM
--- NOTE | 2025-05-14 09:19 | XR ---
EXAMINATION TYPE: XR chest 2V DATE OF EXAM: 05/14/2025 9:10 AM COMPARISON: 05/20/2023 CLINICAL INDICATION: Female, 70 years old with history of fall, TECHNIQUE: XR chest 2V view(s) obtained. FINDINGS: The heart size is normal. The pulmonary vasculature is normal. The lungs are clear. No acute displaced rib fractures. No pneumothorax is evident. Old right humeral fracture present. IMPRESSION: 1. No acute pulmonary process. 2. No acute posttraumatic changes evident. [facility], Workstation: [facility], 05/14/2025 9:16 AM
--- NOTE | 2025-05-14 09:25 | XR ---
EXAMINATION TYPE: XR Hip RT and AP Pelvis DATE OF EXAM: 05/14/2025 9:10 AM COMPARISON: 11/15/2021 CLINICAL INDICATION: Female, 70 years old with history of fall, pain, pain TECHNIQUE: AP view(s) obtained. FINDINGS: Right femoral prosthesis present. Left femoral head articulates with the acetabulum. Symphysis pubis normal. There is an old fracture of the left pubic ramus. Sacroiliac joints are normal. Surgical changes at t he L5-S1 level IMPRESSION: 1. No acute osseous abnormality AP pelvis [facility], Workstation: [facility], 05/14/2025 9:23 AM
[2025-05-14] MEDS: HYDROmorphone 0.5 MG/0.5 ML SYRINGE IVP STA (09:28)
[2025-05-14 11:01] VITALS: BP 122/79; TEMP 97.8
== END 2025-05-14 11:01 | disposition home or self-care (01) ==
LOC: EC 07:42
DX: G89.29 Other chronic pain (principal); F17.200 Nicotine dependence, unspecified, uncomplicated; Z88.6 Allergy status to analgesic agent; Z88.5 Allergy status to narcotic agent; W19.XXXA Unspecified fall, initial encounter
CPT/HCPCS: 36415; 93005; 80053; 82140; 83605; 83735; 85025; 85610; 85730; 73502; 71046; 72125; 72131; 70450; 99285; 96374; 96375; J2060; J1171